=== PATIENT | female | born 1960 | race Caucasian/White ===

== ENCOUNTER 2016-07-27 05:20 | Inpatient (IN) | payer MEDICAID ==
[~2016-07-27] VITALS: Ht 154.9 cm; Wt 58.2 kg
[2016-07-27] VITALS (13 sets, daily range): BP systolic 133–165; BP diastolic 69–83; PULSE 71–93; RESP 16–20; TEMP 98.9–101.3; O2SAT 98–100
[~2016-07-27 05:20] MED LIST: ACET-703 PO; FERR325T PO; IBUP400T20 PO; LACT10SO PO; OMEP10CA PO; PROP20TA3 PO; PROT40TA PO; SPIR25 PO; TRAZ50TA12 PO; VASO10TA8 PO; XIFA550T4 PO
[2016-07-27] MEDS: SODIUM CHLORID 0.9% 500 ML IV SCH ×2 (05:45→20:43)
[2016-07-27] MEDS ORDERED: INSULIN HUMAN REGULAR 1,000 UNITS/10 ML VIAL SQ PRN (05:45)
[2016-07-27] MEDS ORDERED: METOPROLOL TARTRATE 25 MG TAB PO PRN (05:45)
[2016-07-27] MEDS: LACTATED RINGER'S 1000 ML IV SCH ×2 (06:15→20:43)
[2016-07-27] MEDS ORDERED: FURO1TAB62 PO (06:26)
[2016-07-27 06:46] LABS: AUTOMATED NEUTROPHIL # 2.5 TH/MM3 (1.8-7.7); BASOPHIL # 0.1 TH/MM3 (0-0.2); BASOPHIL % 1.3 % (0.0-2.0); EOSINOPHIL # 0.2 TH/MM3 (0-0.4); EOSINOPHIL % 4.5 % (0.0-4.0); LYMPH % 28.8 % (9.0-44.0); LYMPHOCYTE # 1.3 TH/MM3 (1.0-4.8); MEAN CELL VOLUME 93.7 FL (80.0-100.0); MEAN CORPUSCULAR HEMOGLOBIN 32.8 PG (27.0-34.0); MONO % 12.9 % (0.0-8.0); NEUT % 52.5 % (16.0-70.0); PLATELET COUNT 96 TH/MM3 (150-450); RED BLOOD COUNT 1.98 MIL/MM3 (4.00-5.30); RED CELL DISTRIBUTION WIDTH 13.1 % (11.6-17.2); WHITE BLOOD COUNT 4.7 TH/MM3 (4.0-11.0)
[2016-07-27] MEDS ORDERED: GENTAMICIN SULFATE 80 MG/2 ML VIAL ONE (06:50)
[2016-07-27 06:51] LABS: HEMO FLAGS AUTO DIFF
[2016-07-27 06:52] LABS: HEMATOCRIT 18.5 % (35.0-46.0)
[2016-07-27 06:56] LABS: ANION GAP 10 MEQ/L (5-15); AST (GOT) 26 U/L (15-37); BICARBONATE 19.6 MEQ/L (21.0-32.0); BLOOD UREA NITROGEN 19 MG/DL (7-18); CHLORIDE 113 MEQ/L (98-107); GLOMERULAR FILTRATION RATE 34 ML/MIN (>89); POTASSIUM 3.1 MEQ/L (3.5-5.1); SODIUM (NA) 143 MEQ/L (136-145)
[2016-07-27 06:57] LABS: INTERNATIONAL NORMALIZED RATIO 1.2 RATIO; PROTHROMBIN TIME - PATIENT 13.3 SEC (9.8-11.6)
[2016-07-27 06:59] LABS: ALKALINE PHOSPHATASE 118 U/L (45-117); ALT (GPT) 24 U/L (10-53); TOTAL BILIRUBIN ADULT 0.7 MG/DL (0.2-1.0)
[2016-07-27] MEDS ORDERED: SODIUM CHLOR 0.9% 250 ML INJ 250 ML IV ONE (07:15)
[2016-07-27 07:16] LABS: BANDS 3 % (0-6); BASOPHILS 1 % (0-2); EOSINOPHILS 2 % (0-4); NEUTROPHIL # MANUAL DIFF 2.8 TH/MM3 (1.8-7.7); PLATELET ESTIMATE SMEAR LOW (NORMAL); POLYS (SEG NEUTROPHILS) 57 % (16-70); WBC DIFF SAMPLE 100
[2016-07-27 07:17] LABS: PLATELET MORPHOLOGY NORMAL (NORMAL); SCAN/DIFF FINAL DIFF MANUAL
[2016-07-27] MEDS ORDERED: ACETAMINOPHEN/HYDROcodone 325 MG/5 MG TAB ONE (12:37)
[2016-07-27] MEDS ORDERED: ACETAMINOPHEN/HYDROcodone 325 MG/5 MG TAB PO PRN ×2 (13:00)
[2016-07-27] MEDS ORDERED: IBUPROFEN 600 MG TAB PO PRN (19:15)
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
[2016-07-27] MEDS ORDERED: POTASSIUM CL 40 MEQ/30 ML LIQ UDC PO ONE (20:00)
[2016-07-27] MEDS: FERROUS SULFATE 325 MG (65 MG ELEMENTAL IRON) TAB PO SCH (20:01)
[2016-07-27] MEDS: PANTOPRAZOLE SODIUM 40 MG VIAL IV PUSH SCH (20:01)
[2016-07-27] MEDS: RIFAXIMIN 550 MG TAB PO SCH (20:01)
[2016-07-27] MEDS: traZODone HCL 50 MG TAB PO SCH (20:01)
[2016-07-27] MEDS: LACTULOSE SYRUP 20 GM/30 ML CUP PO SCH (20:07)
[2016-07-27] MEDS: SODIUM CHLOR 0.9% 1000 ML INJ 1,000 ML IV SCH (20:07)
[2016-07-27 20:58] LABS: HEMATOCRIT 24.1 % (35.0-46.0); MEAN CELL VOLUME 89.2 FL (80.0-100.0); MEAN CORPUSCULAR HEMOGLOBIN 30.9 PG (27.0-34.0); MEAN CORPUSCULAR HGB CONC 34.6 % (32.0-36.0); PLATELET COUNT 119 TH/MM3 (150-450); RED CELL DISTRIBUTION WIDTH 14.3 % (11.6-17.2); RETIC % 3.4 % (0.4-3.0); REVIEW FLAG FINAL; WHITE BLOOD COUNT 5.6 TH/MM3 (4.0-11.0)
[2016-07-27] MEDS ORDERED: ENALAPRIL MALEATE 10 MG TAB PO SCH (21:00)
[2016-07-27 21:50] LABS: FERRITIN 13 NG/ML (8-252); LDH SERUM 202 U/L (84-246); TRANSFERRIN IRON PROFILE 275 MG/DL (200-360)
[2016-07-28] VITALS (7 sets, daily range): BP systolic 136–177; BP diastolic 69–89; PULSE 66–80; RESP 16–19; TEMP 96.9–99.3; O2SAT 95–100
[2016-07-28 01:14] LABS: C. DIFF EPI 027 PRESUMPTIVE NEGATIVE (NEGATIVE)
[2016-07-28 01:59] LABS: C. DIFF TOXIN PCR POSITIVE (NEGATIVE)
[2016-07-28] MEDS: metroNIDAZOLE 500 MG INJ 100 ML IV SCH ×3 (03:46→20:24)
[2016-07-28] MEDS: SODIUM CHLOR 0.9% 1000 ML INJ 1,000 ML IV SCH ×2 (04:50→18:04)
[2016-07-28 05:46] LABS: AUTOMATED NEUTROPHIL # 1.3 TH/MM3 (1.8-7.7); BASOPHIL % 1.2 % (0.0-2.0); EOSINOPHIL # 0.1 TH/MM3 (0-0.4); EOSINOPHIL % 4.4 % (0.0-4.0); HEMATOCRIT 21.9 % (35.0-46.0); LYMPH % 31.2 % (9.0-44.0); LYMPHOCYTE # 0.9 TH/MM3 (1.0-4.8); MEAN CELL VOLUME 89.2 FL (80.0-100.0); MEAN CORPUSCULAR HEMOGLOBIN 31.3 PG (27.0-34.0); MEAN CORPUSCULAR HGB CONC 35.1 % (32.0-36.0); MONO % 17.5 % (0.0-8.0); NEUT % 45.7 % (16.0-70.0); PLATELET COUNT 74 TH/MM3 (150-450); RED BLOOD COUNT 2.46 MIL/MM3 (4.00-5.30); RED CELL DISTRIBUTION WIDTH 14.5 % (11.6-17.2); WHITE BLOOD COUNT 2.8 TH/MM3 (4.0-11.0)
[2016-07-28 06:03] LABS: ALKALINE PHOSPHATASE 94 U/L (45-117); ALT (GPT) 18 U/L (10-53); ANION GAP 9 MEQ/L (5-15); AST (GOT) 19 U/L (15-37); BICARBONATE 19.5 MEQ/L (21.0-32.0); BLOOD UREA NITROGEN 19 MG/DL (7-18); CHLORIDE 116 MEQ/L (98-107); GLOMERULAR FILTRATION RATE 41 ML/MIN (>89); SODIUM (NA) 144 MEQ/L (136-145)
[2016-07-28 06:11] LABS: HEMO FLAGS AUTO DIFF
--- NOTE | 2016-07-28 06:52 | PD.ORT.PN ---
Subjective Subjective Remarks s/p nonunion right distal tibia fx patietn doing well. no complaints. resting comfortably Objective Vitals Vital Signs Date Time Temp Pulse Resp B/P Pulse Ox O2 Delivery O2 Flow Rate FiO2 07/28/16 04:00 96.9 80 19 177/89 98 07/28/16 00:00 99.2 71 19 139/75 98 07/27/16 20:00 101.3 88 19 165/77 98 07/27/16 18:42 101.1 93 20 160/77 100 07/27/16 18:20 101.0 93 18 158/72 100 07/27/16 16:30 99.8 86 16 156/72 98 07/27/16 15:15 100.5 84 18 135/69 100 07/27/16 13:25 100.8 79 18 141/83 100 07/27/16 13:08 100.8 74 16 136/73 99 07/27/16 13:00 100.8 74 16 136/73 99 07/27/16 12:00 101.1 78 18 152/73 100 07/27/16 10:23 100.3 73 18 142/79 100 07/27/16 10:09 99.2 71 18 133/74 99 07/27/16 09:45 100.5 76 142/74 100 I/O 07/27/16 07/27/16 07/27/16 07/28/16 07/28/16 07/28/16 06:59 14:59 22:59 06:59 14:59 22:59 Intake Total 590 ml 672 ml Output Total 200 ml Balance 390 ml 672 ml Intake Oral 240 ml IV Total 100 ml 672 ml Platelets 250 ml Output Urine Total 200 ml # Voids 2 1 2 # Bowel Movements 3 2 Result Diagram: 07/28/16 0455 07/28/16 0455 Objective Remarks RLE: good PROM with minimal pain. NVI distally wtih good cap refill Assessment & Plan Assessment and Plan 1) Right Distal Tibia nonunion -patient still not stable enough for surgery. labs not healthy enough -will allow medical to continue to work up patient and optimize for surgery -hopeful surgery mon/tu -orthotech to splint today -NPO after MN tuesday -NWRafa Menjivar Jul 28, 2016 06:52
[2016-07-28 08:07] LABS: BANDS 14 % (0-6); EOSINOPHILS 4 % (0-4); NEUTROPHIL # MANUAL DIFF 1.9 TH/MM3 (1.8-7.7); POLYS (SEG NEUTROPHILS) 53 % (16-70); WBC DIFF SAMPLE 100
[2016-07-28 08:08] LABS: PLATELET ESTIMATE SMEAR LOW (NORMAL); PLATELET MORPHOLOGY NORMAL (NORMAL); POLYCHROMASIA 2.2 % (0.0-1.9); SCAN/DIFF FINAL DIFF MANUAL
[2016-07-28] MEDS: SPIRONOLACTONE 25 MG TAB PO SCH (08:41)
[2016-07-28] MEDS: RIFAXIMIN 550 MG TAB PO SCH ×2 (08:41→20:23)
[2016-07-28] MEDS: PANTOPRAZOLE SODIUM 40 MG VIAL IV PUSH SCH ×2 (08:41→20:23)
[2016-07-28] MEDS: FERROUS SULFATE 325 MG (65 MG ELEMENTAL IRON) TAB PO SCH ×2 (08:41→20:24)
[2016-07-28] MEDS: PROPRANOLOL HCL 20 MG TAB PO SCH ×3 (08:41→18:04)
[2016-07-28] MEDS: LACTULOSE SYRUP 20 GM/30 ML CUP PO SCH ×4 (08:43→20:31)
[2016-07-28] MEDS ORDERED: FUROSEMIDE 20 MG TAB PO SCH (09:00)
--- NOTE | 2016-07-28 10:46 | HHI.PR ---
Subjective Remarks Follow-up for diarrhea, anemia and thrombocytopenia MAXIMUM TEMPERATURE 101.3, no abdominal pain, still having diarrhea but improved , less frequent. Less soft. No melena or hematochezia, no obvious bleeding. Denies any shortness of breath or urinary symptoms. Objective Vitals Vital Signs Date Time Temp Pulse Resp B/P Pulse Ox O2 Delivery O2 Flow Rate FiO2 07/28/16 08:00 97.7 66 16 136/74 98 07/28/16 04:00 96.9 80 19 177/89 98 07/28/16 00:00 99.2 71 19 139/75 98 07/27/16 20:00 101.3 88 19 165/77 98 07/27/16 18:42 101.1 93 20 160/77 100 07/27/16 18:20 101.0 93 18 158/72 100 07/27/16 16:30 99.8 86 16 156/72 98 07/27/16 15:15 100.5 84 18 135/69 100 07/27/16 13:25 100.8 79 18 141/83 100 07/27/16 13:08 100.8 74 16 136/73 99 07/27/16 13:00 100.8 74 16 136/73 99 07/27/16 12:00 101.1 78 18 152/73 100 I/O 07/27/16 07/27/16 07/27/16 07/28/16 07/28/16 07/28/16 07:00 15:00 23:00 07:00 15:00 23:00 Intake Total 590 ml 672 ml Output Total 200 ml Balance 390 ml 672 ml Intake Oral 240 ml IV Total 100 ml 672 ml Platelets 250 ml Output Urine Total 200 ml # Voids 2 1 2 # Bowel Movements 3 2 Result Diagram: 07/28/16 0455 07/28/16 0455 Objective Remarks Not in distress, well-nourished, looks stated age PERRL, moderately pale conjunctiva without injection, anicteric Nose without bleeding, airway patent Supple neck, no masses or thyromegaly, trachea midline Normal rate and regular rhythm, no murmurs gallops or rubs appreciated. Clear to auscultation and symmetric bilaterally, normal respiratory effort. Normal bowel sounds, soft, non-tender, nondistended, no guarding. Extremities without clubbing, cyanosis, 2+ edema. No rash of generalized distribution. Skin is warm and dry. AAO x3, no cranial nerve deficits, moves all 4 extremities, no focal neurologic deficits, no asterixis Normal mood, appropriate affect A/P Assessment and Plan Symptomatic anemia in a 55-year-old male Symptomatic anemia-status post transfusion with packed red blood cells, hemoglobin down again to 7.7. Likely secondary to consumptive coagulopathy from splenomegaly secondary to liver cirrhosis. Workup done, unremarkable so far. Continue to check hemoglobin every 12 hours, check ultrasound of the liver and spleen. Consult hematology. CT scan of the abdomen in October did not show any splenomegaly. Normocytic anemia may also be secondary to infection. 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 Patient has history of GI bleeding, status post EGD in March, showed gastritis and esophageal and gastric varices. Fecal occult blood negative. Thrombocytopenia-no obvious bleeding, getting platelet transfusion right now, likely secondary to consumptive coagulopathy as well, workup negative so far. Consult hematology. Transfuse as needed. Sepsis secondary to C. difficile diarrhea-start Flagyl, monitor. Sepsis based on fever, leukopenia with renal failure. Check blood culture, recheck CBC tomorrow. No recent antibiotic use. Acute renal failure- improved, secondary to overdiuresis and diarrhea, stop diuretics for now, hold lisinopril, continue IVF, recheck BMP tomorrow. Tibia-fibula fracture, left-orthopedics following, nonweightbearing for now. Surgery Tuesday or Tuesday Liver cirrhosis secondary to hepatitis C with history of hepatic encephalopathy- continue rifaximin and lactulose. Hypokalemia-replaced, recheck BMP tomorrow. Check magnesium as well. DVT prophylaxis: SCDs, pharmacological prophylaxis contraindicated Berkley Allen MD Jul 28, 2016 10:46
--- NOTE | 2016-07-28 11:53 | PD.CONS ---
HPI History of Present Illness This is a 55 year old female patient with a hx of liver cirrhosis, esophageal varices, and hepatitis C. She was sent to the hospital to be admitted and have surgical repair of a right distal tibia nonunion. She was found to have significant anemia on her preop labs with an H/H of 6.5/18.5. She was transfused 2 units PRBC and her HH is currently 7.7/21.9. The patient reports that she has had GI bleeding in the past and has not had any signs of any bleeding. She states that she even knows "the smell of occult blood" and has not smelled this. She denies any nausea, vomiting, abdominal pain, melena, or hematochezia. She has occasional heartburn and does usually have about 2 loose stools per day because of taking lactulose. However, for the past two days, she has been having more diarrhea and was found to have CDiff (027 negative) and subsequently started on metronidazole. This is her first episode. She denies any recent abx use. She was diagnosed with liver cirrhosis a few years ago and was told that this was related to etoh abuse and HCV and quit drinking 10 months ago. She is treatment naive for her HCV although she is followed by our service as outpatient and getting ready to start tx with Onur. She is taking lactulose 40cc po QID, Protonix 40mg po daily, Propranolol 20mg po BID, Spironolactone 25mg po daily, Xifaxan 550mg po BID. She was evaluated for melena and anemia with EGD/(04/06/16)-----> LA class a esophagitis noted, alcoholic gastritis in the gastric antrum, portal hypertensive gastropathy was found in the gastric fundus, large gastric varices in the gastric fundus, retroflex views revealed no abnormalities. Pathology revealed moderate chronic focally active gastritis, negative for Helicobacter pylori. It is recommended that she be repeat EGD with sclerotherapy in 6 months. Prior to that she had a colonoscopy () and this revealed suboptimal preparation of the colon but no gross lesions was noted. (Annia RocheP) PFSH Past Medical History Liver cirrhosis Gastric varices Gastritis Portal hypertensive gastropathy Hepatic encephalopathy Chronic back pain Hypertension Sciatica Right distal tibia fracture Past Surgical History ORIF right distal tibia-fibula Paracentesis EGD Colonoscopy (Annia Roche) Coded Allergies: No Known Allergies (Unverified , 07/27/16) Medications Allergies Coded Allergies Type Severity Reaction Last Updated Verified No Known Allergies 07/27/16 No Active Scripts Medications Dose Route/Sig Days Date Category Lasix (Furosemide) 20 Mg Tab 20 Mg PO DAILY 07/27/16 Reported Ibuprofen 400 Mg Tab 400 Mg PO Q6H PRN 07/26/16 Reported Tylenol Extra Strength (Acetaminophen) 500 Mg Tab 500 Mg PO Q4-6H PRN 07/26/16 Reported Xifaxan (Rifaximin) 550 Mg Tab 550 Mg PO BID 07/26/16 Reported Vasotec (Enalapril Maleate) 10 Mg Tab 10 Mg PO BID 07/26/16 Reported Protonix (Pantoprazole Sodium) 40 Mg Tab 40 Mg PO BID 07/26/16 Reported Propranolol (Propranolol HCl) 20 Mg Tab 20 Mg PO TID 07/26/16 Reported Lactulose Liq (Lactulose) 10 Gm/15 Ml Soln 40 Ml PO QID 07/26/16 Reported Ferrous Sulfate 325 Mg Tab 325 Mg PO BID 07/26/16 Reported Aldactone (Spironolactone) 25 Mg Tab 25 Mg PO DAILY 07/26/16 Reported Trazodone (Trazodone HCl) 50 Mg Tab 50 Mg PO HS 07/26/16 Reported Omeprazole 10 Mg Cap 10 Mg PO DAILY 07/26/16 Reported Family History Mother has cardiac problems, breast cancer Father with htn Social History Previously drinks about 4-5 shots of rum every day, stopped 9-10 months ago Quit smoking 9-10 months (Annia Roche) Review of Systems Constitutional: COMPLAINS OF: Fatigue Respiratory: COMPLAINS OF: Shortness of breath, DENIES: Cough Gastrointestinal: COMPLAINS OF: Heartburn, DENIES: Abdominal pain, Black stools, Bloody stools, Constipation, Diarrhea, Nausea, Vomiting Musculoskeletal: COMPLAINS OF: Joint pain Integumentary: DENIES: Abnormal pigmentation Neurologic: DENIES: Headache Psychiatric: DENIES: Confusion (Annia Roche) GI Exam Vitals I&O Vital Signs Date Time Temp Pulse Resp B/P Pulse Ox O2 Delivery O2 Flow Rate FiO2 07/28/16 09:52 20 07/28/16 08:00 97.7 66 16 136/74 98 07/28/16 04:00 96.9 80 19 177/89 98 07/28/16 00:00 99.2 71 19 139/75 98 07/27/16 20:00 101.3 88 19 165/77 98 07/27/16 18:42 101.1 93 20 160/77 100 07/27/16 18:20 101.0 93 18 158/72 100 07/27/16 16:30 99.8 86 16 156/72 98 07/27/16 15:15 100.5 84 18 135/69 100 07/27/16 13:25 100.8 79 18 141/83 100 07/27/16 13:08 100.8 74 16 136/73 99 07/27/16 13:00 100.8 74 16 136/73 99 07/27/16 12:00 101.1 78 18 152/73 100 I/O 07/27/16 07/27/16 07/27/16 07/28/16 07/28/16 07/28/16 06:59 14:59 22:59 06:59 14:59 22:59 Intake Total 590 ml 672 ml Output Total 200 ml Balance 390 ml 672 ml Intake Oral 240 ml IV Total 100 ml 672 ml Platelets 250 ml Output Urine Total 200 ml # Voids 2 1 2 # Bowel Movements 3 2 Laboratory Test 07/27/16 07/28/16 07/28/16 20:27 00:01 04:55 White Blood Count 5.6 TH/MM3 2.8 TH/MM3 Red Blood Count 2.70 MIL/MM3 2.46 MIL/MM3 Hemoglobin 8.3 GM/DL 7.7 GM/DL Hematocrit 24.1 % 21.9 % Mean Corpuscular Volume 89.2 FL 89.2 FL Mean Corpuscular Hemoglobin 30.9 PG 31.3 PG Mean Corpuscular Hemoglobin 34.6 % 35.1 % Concent Red Cell Distribution Width 14.3 % 14.5 % Platelet Count 119 TH/MM3 74 TH/MM3 Mean Platelet Volume 8.7 FL 8.5 FL Reticulocyte Count 3.4 % Absolute Reticulocyte Count 92.9 MIL/L Haptoglobin 42 MG/DL Iron Level 91 MCG/DL Total Iron Binding Capacity 385 MCG/DL Percent Iron Saturation 23.6 % Ferritin 13 NG/ML Lactate Dehydrogenase 202 U/L Vitamin B12 Level 1449 PG/ML Folate 16.4 NG/ML Direct Antiglobulin Test NEGATIVE (Nathalie) Stool C. difficile Toxin (PCR) POSITIVE Stl C. difficile Toxin PRESUMPTIVE Epiderm 027 NEGATIVE Neutrophils (%) (Auto) 45.7 % Lymphocytes (%) (Auto) 31.2 % Monocytes (%) (Auto) 17.5 % Eosinophils (%) (Auto) 4.4 % Basophils (%) (Auto) 1.2 % Neutrophils # (Auto) 1.3 TH/MM3 Lymphocytes # (Auto) 0.9 TH/MM3 Monocytes # (Auto) 0.5 TH/MM3 Eosinophils # (Auto) 0.1 TH/MM3 Basophils # (Auto) 0.0 TH/MM3 CBC Comment AUTO DIFF Differential Total Cells 100 Counted Neutrophils % (Manual) 53 % Band Neutrophils % 14 % Lymphocytes % 18 % Monocytes % 11 % Eosinophils % 4 % Neutrophils # (Manual) 1.9 TH/MM3 Differential Comment FINAL DIFF MANUAL Platelet Estimate LOW Platelet Morphology Comment NORMAL Polychromasia 2.2 % Sodium Level 144 MEQ/L Potassium Level 3.0 MEQ/L Chloride Level 116 MEQ/L Carbon Dioxide Level 19.5 MEQ/L Anion Gap 9 MEQ/L Blood Urea Nitrogen 19 MG/DL Creatinine 1.36 MG/DL Estimat Glomerular Filtration 41 ML/MIN Rate Random Glucose 81 MG/DL Calcium Level 7.6 MG/DL Total Bilirubin 1.0 MG/DL Aspartate Amino Transf 19 U/L (AST/SGOT) Alanine Aminotransferase 18 U/L (ALT/SGPT) Alkaline Phosphatase 94 U/L Total Protein 5.0 GM/DL Albumin 2.0 GM/DL Date/Time Procedure Status Source Growth 07/28/16 00:01 Stool Occult Blood (BERNICE) - Final Complete Stool Stool HEMOCCULT NEGATIVE Physical Examination HEENT: Normocephalic; atraumatic; no jaundice. Throat is clear. NECK: Neck is supple, no JVD, no lymphadenopathy. CHEST: CTA CARDIAC: RRR. ABDOMEN: Soft, nondistended, nontender; hepatosplenomegaly; bowel sounds are present in all four quadrants. EXTREMITIES: RLE splint/drsg SKIN: Normal; no rash; no jaundice. 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 (Annia Roche) Assessment and Plan Plan ASSESSMENT: - Anemia. Pt with hx of esophagitis, portal gastropathy, gastric varices, but is not having any signs of active bleeding. She has occasional breakthrough heartburn and has been having more diarrhea for a few days, but no obvious blood loss. She was noted to have H/H of 6.5/18.5 on arrival. EGD/(04/06/16)-----> LA class a esophagitis noted, alcoholic gastritis in the gastric antrum, portal hypertensive gastropathy was found in the gastric fundus, large gastric varices in the gastric fundus, retroflex views revealed no abnormalities. Pathology revealed moderate chronic focally active gastritis, negative for Helicobacter pylori. It is recommended that she be repeat EGD with sclerotherapy in 6 months. Prior to that she had a colonoscopy () and this revealed suboptimal preparation of the colon but no gross lesions was noted. S/P 2 units PRBC and her HH is currently 7.7/21.9. Of note, she was also diagnosed with CDiff. Will start octreotide in addition to her protonix and closely monitor. Will plan for egd if any signs of active bleeding or significant drop in Hgb. - CDiff Diarrhea. 1st episode. Flagyl. - Nonunion of distal tibia (right). Scheduled for surgery, but then found to have anemia/cdiff. Ortho following and is planning on surgery next week. - Liver cirrhosis secondary to ETOH/HCV. Quit drinking 10 months ago. Tx naive for HCV, but following as outpatient and planning on starting Harvoni soon (in process). - Portal gastropathy, gastric varices. No active bleeding. Cont. Propranolol. PPI. Add Octreotide - Hepatic encephalopathy. Xifaxan, Lactulose. - Pancytopenia secondary to cirrhosis. WBC 2.8, H/H 7.7/21.9, Plt 74. - RI, Creat 1.36. PLAN: - EGD with possible band ligation - Obtain consents - NPO - Add Octreotide gtt - Cont. PPI - Cont. Propranolol - Cont. Flagyl - Cont. Lactulose- hold for diarrhea - Cont. Xifaxan - D/C Motrin - Monitor stool output - CBC, CMP in am - Supportive care - Further recommendations to follow based on results of above - Pt seen and examined by Dr. Larios and myself and this note is written on his behalf (Annia Roche) Physician Comments Seen and examined with Ms. Melchor PINEDA, +ve for c. diff. On antibiotics now. EGD today for fu on varices. Liquid diet. Transfuse as needed. Octreotide and protonix. Will follow, thank you (Lew Larios MD) Annia Roche Jul 28, 2016 11:53 Lew Larios MD Jul 28, 2016 14:51
[2016-07-28] MEDS ORDERED: OCTREOTIDE INJ 50 MCG/ML AMP IVP PRN (12:15)
[2016-07-28] MEDS ORDERED: SODIUM CHLORIDE 0.9% FLUSH 5 ML FLUSH FLUSH PRN (12:15)
[2016-07-28] MEDS: SODIUM CHLORIDE 0.9% FLUSH 5 ML FLUSH FLUSH SCH ×2 (12:30→19:50)
[2016-07-28] MEDS ORDERED: PROPOFOL 200 MG/20 ML AMP IV ONE (12:35)
--- NOTE | 2016-07-28 16:51 | RADRPT ---
EXAM DATE/TIME: 07/28/2016 15:26 [facility] COMPARISON: No previous studies available for comparison. EXTERNAL COMPARISON : [facility], US LIVER, July 15, 2016 INDICATIONS : Splenomegaly. MEDICAL HISTORY : Hypertension. Hepatitis C. Right inguinal hernia. Cirrhosis. SURGICAL HISTORY : section. Paracentesis. Orthopedic surgery, right leg. ENCOUNTER: Subsequent ACUITY: 1 day PAIN SCORE: 0/10 LOCATION: Left upper quadrant MEASUREMENTS: SPLEEN: 12.7 cm length FINDINGS: The spleen measures 12.7 cm which is not enlarged. There are minimal dilated vessels in the hilum of the spleen that could be varicosities. Trace free fluid is evident. CT scan with IV contrast is a much more reliable way to evaluate for splenomegaly and varicosities. CONCLUSION: Normal size spleen. Ramos Lo MD FACR on July 28, 2016 at 16:20 Board Certified Radiologist. This report was verified electronically.
[2016-07-28] MEDS: traZODone HCL 50 MG TAB PO SCH (20:23)
[2016-07-29] VITALS (10 sets, daily range): BP systolic 119–145; BP diastolic 67–84; PULSE 52–75; RESP 16–19; TEMP 97–98.7; O2SAT 97–100
[2016-07-29] MEDS: LACTATED RINGER'S 1000 ML IV SCH (03:29)
[2016-07-29] MEDS: SODIUM CHLOR 0.9% 1000 ML INJ 1,000 ML IV SCH ×2 (03:50→15:48)
[2016-07-29] MEDS: metroNIDAZOLE 500 MG INJ 100 ML IV SCH ×3 (03:50→20:24)
[2016-07-29 04:57] LABS: AUTOMATED NEUTROPHIL # 1.2 TH/MM3 (1.8-7.7); BASOPHIL # 0.1 TH/MM3 (0-0.2); BASOPHIL % 1.4 % (0.0-2.0); EOSINOPHIL # 0.3 TH/MM3 (0-0.4); EOSINOPHIL % 8.2 % (0.0-4.0); HEMATOCRIT 23.9 % (35.0-46.0); LYMPH % 36.8 % (9.0-44.0); LYMPHOCYTE # 1.4 TH/MM3 (1.0-4.8); MEAN CELL VOLUME 90.6 FL (80.0-100.0); MEAN CORPUSCULAR HEMOGLOBIN 30.6 PG (27.0-34.0); MEAN CORPUSCULAR HGB CONC 33.8 % (32.0-36.0); MONO % 21.7 % (0.0-8.0); NEUT % 31.9 % (16.0-70.0); PLATELET COUNT 86 TH/MM3 (150-450); RED BLOOD COUNT 2.64 MIL/MM3 (4.00-5.30); RED CELL DISTRIBUTION WIDTH 14.8 % (11.6-17.2); WHITE BLOOD COUNT 3.8 TH/MM3 (4.0-11.0)
[2016-07-29 05:03] LABS: HEMO FLAGS AUTO DIFF
[2016-07-29 05:17] LABS: BICARBONATE 19.6 MEQ/L (21.0-32.0); MAGNESIUM 1.6 MG/DL (1.5-2.5); POTASSIUM 3.1 MEQ/L (3.5-5.1)
--- NOTE | 2016-07-29 07:01 | PD.ORT.PN ---
Subjective Subjective Remarks s/p nonunion right distal tibia fx patietn doing well. no complaints. resting comfortably Objective Vitals Vital Signs Date Time Temp Pulse Resp B/P Pulse Ox O2 Delivery O2 Flow Rate FiO2 07/29/16 00:00 98.7 71 18 129/70 100 07/28/16 20:00 99.3 69 18 142/69 100 07/28/16 16:00 98.1 73 16 163/84 95 07/28/16 15:56 20 07/28/16 12:58 63 16 115/67 96 07/28/16 12:53 66 16 115/61 96 07/28/16 12:48 97.9 68 16 108/61 96 07/28/16 12:34 97.8 68 18 162/75 97 07/28/16 12:17 97.7 66 16 136/74 98 07/28/16 08:00 97.7 66 16 136/74 98 I/O 07/28/16 07/28/16 07/28/16 07/29/16 07/29/16 07/29/16 07:00 15:00 23:00 07:00 15:00 23:00 Intake Total 672 ml 600 ml 1644 ml 1040 ml Output Total 350 ml Balance 672 ml 250 ml 1644 ml 1040 ml Intake Oral 0 ml 240 ml 240 ml IV Total 672 ml 600 ml 1404 ml 800 ml Output Urine Total 350 ml # Voids 2 2 1 1 # Bowel Movements 2 1 Result Diagram: 07/29/16 0413 07/29/16 0413 Objective Remarks RLE: good PROM with minimal pain. NVI distally wtih good cap refill. + short leg splint in good repair Assessment & Plan Assessment and Plan 1) Right Distal Tibia nonunion -patient still not stable enough for surgery. labs not healthy enough -will allow medical to continue to work up patient and optimize for surgery -hopeful surgery mon/ -orthotech to splint today -NPO after MN tuesday -Rafa Gongora Jul 29, 2016 07:01
[2016-07-29 08:22] LABS: BANDS 3 % (0-6); BASOPHILS 1 % (0-2); CORRECTED NUCLEATED RBC 1 /100 WBC (0-0); EOSINOPHILS 7 % (0-4); NEUTROPHIL # MANUAL DIFF 1.6 TH/MM3 (1.8-7.7); POLYS (SEG NEUTROPHILS) 40 % (16-70); WBC DIFF SAMPLE 100
[2016-07-29 08:23] LABS: PLATELET ESTIMATE SMEAR LOW (NORMAL); PLATELET MORPHOLOGY NORMAL (NORMAL); SCAN/DIFF FINAL DIFF MANUAL
[2016-07-29] MEDS: SODIUM CHLORIDE 0.9% FLUSH 5 ML FLUSH FLUSH SCH ×2 (08:32→20:17)
[2016-07-29] MEDS: RIFAXIMIN 550 MG TAB PO SCH ×2 (08:45→20:24)
[2016-07-29] MEDS: PROPRANOLOL HCL 20 MG TAB PO SCH ×3 (08:45→17:51)
[2016-07-29] MEDS: FERROUS SULFATE 325 MG (65 MG ELEMENTAL IRON) TAB PO SCH ×2 (08:45→20:24)
[2016-07-29] MEDS: LACTULOSE SYRUP 20 GM/30 ML CUP PO SCH (08:45)
[2016-07-29] MEDS: PANTOPRAZOLE SODIUM 40 MG VIAL IV PUSH SCH ×2 (08:45→20:24)
[2016-07-29] MEDS ORDERED: ACETAMINOPHEN 325 MG TAB PO PRN (09:00)
[2016-07-29] MEDS ORDERED: diphenhydrAMINE HCL 25 MG CAP PO PRN (09:00)
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
--- NOTE | 2016-07-29 10:22 | HHI.PR ---
Subjective Remarks Follow-up for anemia, thrombocytopenia and C. difficile Still having diarrhea, loose, frequent, mild abdominal pain and nausea but no vomiting. No obvious bleeding. Objective Vitals Vital Signs Date Time Temp Pulse Resp B/P Pulse Ox O2 Delivery O2 Flow Rate FiO2 07/29/16 07:45 97.3 65 18 135/67 97 07/29/16 00:00 98.7 71 18 129/70 100 07/28/16 20:00 99.3 69 18 142/69 100 07/28/16 16:00 98.1 73 16 163/84 95 07/28/16 15:56 20 07/28/16 12:58 63 16 115/67 96 07/28/16 12:53 66 16 115/61 96 07/28/16 12:48 97.9 68 16 108/61 96 07/28/16 12:34 97.8 68 18 162/75 97 07/28/16 12:17 97.7 66 16 136/74 98 I/O 07/28/16 07/28/16 07/28/16 07/29/16 07/29/16 07/29/16 06:59 14:59 22:59 06:59 14:59 22:59 Intake Total 672 ml 600 ml 1644 ml 1040 ml Output Total 350 ml Balance 672 ml 250 ml 1644 ml 1040 ml Intake Oral 0 ml 240 ml 240 ml IV Total 672 ml 600 ml 1404 ml 800 ml Output Urine Total 350 ml # Voids 2 2 1 1 # Bowel Movements 2 1 Result Diagram: 07/29/16 0413 07/29/16 0413 Imaging Last Impressions Spleen Ultrasound 07/28/16 0000 Signed Impressions: Service Date/Time: Thursday, July 28, 2016 15:26 - CONCLUSION: Normal size spleen. Ramos Lo MD FACR Objective Remarks Not in distress, well-nourished, looks stated age PERRL, moderately pale conjunctiva without injection, anicteric Nose without bleeding, airway patent Supple neck, no masses or thyromegaly, trachea midline Normal rate and regular rhythm, no murmurs gallops or rubs appreciated. Clear to auscultation and symmetric bilaterally, normal respiratory effort. Normal bowel sounds, soft, non-tender, nondistended, no guarding. Extremities without clubbing, cyanosis, 2+ edema. Right lower extremity dressings in place. No rash of generalized distribution. Skin is warm and dry. AAO x3, no cranial nerve deficits, moves all 4 extremities, no focal neurologic deficits, no asterixis Normal mood, appropriate affect A/P Problem List: (1) Hepatitis C ICD Code: B19.20 Status: Chronic (2) Cirrhosis of liver ICD Code: K74.60 Status: Chronic (3) Acute renal failure ICD Code: N17.9 Status: Acute (4) Fracture of distal end of tibia with fibula ICD Code: S82.309A Status: Chronic (5) Anemia ICD Code: D64.9 Status: Acute (6) Hypokalemia ICD Code: E87.6 Status: Acute (7) Thrombocytopenia ICD Code: D69.6 Status: Acute Assessment and Plan Symptomatic anemia in a 55-year-old male Symptomatic anemia-status post transfusion with packed red blood cells, hemoglobin 8.1, per hematology, transfuse 1 more unit. Ultrasound of the liver showed normal spleen. 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 Check CBC daily, chest use as needed. CT scan of the abdomen in October did not show any splenomegaly. Normocytic anemia may also be secondary to infection. Continue Protonix IV, clear liquid diet. Patient has history of GI bleeding, status post EGD in March, showed gastritis and esophageal and gastric varices. Fecal occult blood negative. Possible GI bleed-gastroenterology following, octreotide added, for EGD per GI. Thrombocytopenia-no obvious bleeding, status post platelet transfusion, transfuse as needed prior to surgery. 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 Sepsis secondary to C. difficile diarrhea- continue Flagyl, monitor. Sepsis based on fever, leukopenia with renal failure. No leukocytosis Acute renal failure- improved, secondary to overdiuresis and diarrhea, stop diuretics for now, hold lisinopril, continue IVF, creatinine improving, almost back to normal, recheck BMP tomorrow Tibia-fibula fracture, right -orthopedics following, nonweightbearing for now. Surgery Tuesday or Tuesday Liver cirrhosis secondary to hepatitis C with history of hepatic encephalopathy- continue rifaximin and lactulose. Hypokalemia-replaced Hypomagnesemia-replace DVT prophylaxis: SCDs, pharmacological prophylaxis contraindicated Berkley Allen MD Jul 29, 2016 10:22
[2016-07-29] MEDS: POTASSIUM CHLOR 20 MEQ PREMIX 100 ML IV SCH ×2 (10:26→11:39)
--- NOTE | 2016-07-29 13:03 | HHI.GIFU ---
Subjective Remarks Resting in bed in no distress. No active bleeding. States her diarrhea is slowing down. States surgery is planned for Tuesday/Tuesday of next week. ( Annia Roche) Objective Vitals I&O Vital Signs Date Time Temp Pulse Resp B/P Pulse Ox O2 Delivery O2 Flow Rate FiO2 07/29/16 12:45 97.6 75 18 127/70 97 07/29/16 11:45 97.8 56 18 119/68 100 07/29/16 11:40 97.8 56 18 119/68 100 07/29/16 11:21 97.5 59 19 137/72 99 07/29/16 07:45 97.3 65 18 135/67 97 07/29/16 00:00 98.7 71 18 129/70 100 07/28/16 20:00 99.3 69 18 142/69 100 07/28/16 16:00 98.1 73 16 163/84 95 07/28/16 15:56 20 07/28/16 12:58 63 16 115/67 96 I/O 07/28/16 07/28/16 07/28/16 07/29/16 07/29/16 07/29/16 07:00 15:00 23:00 07:00 15:00 23:00 Intake Total 672 ml 600 ml 1644 ml 1040 ml Output Total 350 ml Balance 672 ml 250 ml 1644 ml 1040 ml Intake Oral 0 ml 240 ml 240 ml IV Total 672 ml 600 ml 1404 ml 800 ml Output Urine Total 350 ml # Voids 2 2 1 1 # Bowel Movements 2 1 Laboratory Laboratory Tests Test 07/29/16 04:13 White Blood Count 3.8 Red Blood Count 2.64 Hemoglobin 8.1 Hematocrit 23.9 Mean Corpuscular Volume 90.6 Mean Corpuscular Hemoglobin 30.6 Mean Corpuscular Hemoglobin 33.8 Concent Red Cell Distribution Width 14.8 Platelet Count 86 Mean Platelet Volume 8.7 Neutrophils (%) (Auto) 31.9 Lymphocytes (%) (Auto) 36.8 Monocytes (%) (Auto) 21.7 Eosinophils (%) (Auto) 8.2 Basophils (%) (Auto) 1.4 Neutrophils # (Auto) 1.2 Lymphocytes # (Auto) 1.4 Monocytes # (Auto) 0.8 Eosinophils # (Auto) 0.3 Basophils # (Auto) 0.1 CBC Comment AUTO DIFF Differential Total Cells 100 Counted Neutrophils % (Manual) 40 Band Neutrophils % 3 Lymphocytes % 30 Monocytes % 19 Eosinophils % 7 Basophils % 1 Neutrophils # (Manual) 1.6 Nucleated Red Blood Cells 1 Differential Comment FINAL DIFF MANUAL Platelet Estimate LOW Platelet Morphology Comment NORMAL Red Cell Morphology Comment NORMAL Sodium Level 144 Potassium Level 3.1 Chloride Level 116 Carbon Dioxide Level 19.6 Anion Gap 8 Blood Urea Nitrogen 14 Creatinine 1.17 Estimat Glomerular Filtration 48 Rate Random Glucose 78 Calcium Level 7.7 Magnesium Level 1.6 Date/Time Procedure Status Source Growth 07/28/16 13:50 Aerobic Blood Culture - Preliminary Resulted Blood Peripheral NO GROWTH IN 1 DAY 07/28/16 13:50 Anaerobic Blood Culture - Preliminary Resulted Blood Peripheral NO GROWTH IN 1 DAY 07/28/16 00:01 Stool Occult Blood (BERNICE) - Final Complete Stool Stool HEMOCCULT NEGATIVE Imaging Last Impressions Spleen Ultrasound 07/28/16 0000 Signed Impressions: Service Date/Time: Thursday, July 28, 2016 15:26 - CONCLUSION: Normal size spleen. Ramos Lo MD FACR Physical Exam HEENT: Normocephalic; atraumatic; no jaundice. Throat is clear. NECK: Neck is supple, no JVD, no lymphadenopathy. CHEST: CTA CARDIAC: RRR. ABDOMEN: Soft, nondistended, nontender; hepatosplenomegaly; bowel sounds are present in all four quadrants. EXTREMITIES: RLE splint/drsg SKIN: Normal; no rash; no jaundice. REFRIGERATOR ROOM CLERK: No focal deficits; alert and oriented times three. (Annia Roche [facility]) Assessment and Plan Plan ASSESSMENT: - Anemia. Pt with hx of esophagitis, portal gastropathy, gastric varices, but is not having any signs of active bleeding. She has occasional breakthrough heartburn and has been having more diarrhea for a few days, but no obvious blood loss. She was noted to have H/H of 6.5/18.5 on arrival. S/P EGD (07/28/16)---> single non bleeding ulcer 3-7 mm in size gastric antrum. Pathology. PPI. S/P 3 units PRBC and her HH is currently 8.1/23.9 - CDiff Diarrhea. 1st episode. Diarrhea improving. Flagyl. - Nonunion of distal tibia (right). Scheduled for surgery, but then found to have anemia/cdiff. Ortho following and is planning on surgery next week. - Liver cirrhosis secondary to ETOH/HCV. Quit drinking 10 months ago. Tx naive for HCV, but following as outpatient and planning on starting Harvoni soon (in process). - Portal gastropathy, gastric varices. No active bleeding. Cont. Propranolol. PPI. Add Octreotide - Hepatic encephalopathy. Xifaxan, Lactulose. - Pancytopenia secondary to cirrhosis. WBC 3.8, H/H 8.1/23.9, Plt 74. - RI, Creat 1.17. PLAN: - OMAYRA - Await pathology - PPI - D/C Octreotide - Cont. Propranolol - Cont. Flagyl - Cont. Lactulose- hold for diarrhea - Cont. Xifaxan - D/C Motrin - Monitor stool output - Avoid NSAIDs - Rpt EGD in 8 weeks - GI will sign off, please reconsult as needed - Pt seen and examined by Dr. Larios and myself and this note is written on his behalf (Annia Roche) Physician Comments Seen and examined with Ms. Melchor PINEDA, doing better. Less diarrhea. Gastric ulcer, biopsy-p. PPI, no Nsaids. Fu egd as recommended. Gi fu upon dc to complete farrell for Hep C. Will sign off,Thank you (Lew Larios MD) Annia Roche Jul 29, 2016 13:03 Lew Larios MD Jul 29, 2016 16:09
[2016-07-29 18:10] LABS: HEMATOCRIT 28.4 % (35.0-46.0); REVIEW FLAG FINAL
[2016-07-29] MEDS: traZODone HCL 50 MG TAB PO SCH (20:24)
[2016-07-30] MEDS: LACTATED RINGER'S 1000 ML IV SCH (03:51)
[2016-07-30] MEDS: SODIUM CHLOR 0.9% 1000 ML INJ 1,000 ML IV SCH (03:53)
[2016-07-30] MEDS: metroNIDAZOLE 500 MG INJ 100 ML IV SCH ×3 (03:53→20:29)
[2016-07-30 04:14] LABS: AUTOMATED NEUTROPHIL # 1.9 TH/MM3 (1.8-7.7); BASOPHIL % 1.1 % (0.0-2.0); EOSINOPHIL # 0.3 TH/MM3 (0-0.4); EOSINOPHIL % 8.5 % (0.0-4.0); HEMATOCRIT 26.4 % (35.0-46.0); LYMPH % 26.1 % (9.0-44.0); MEAN CELL VOLUME 89.7 FL (80.0-100.0); MEAN CORPUSCULAR HEMOGLOBIN 30.7 PG (27.0-34.0); MEAN CORPUSCULAR HGB CONC 34.2 % (32.0-36.0); MONO % 16.1 % (0.0-8.0); NEUT % 48.2 % (16.0-70.0); PLATELET COUNT 85 TH/MM3 (150-450); RED BLOOD COUNT 2.94 MIL/MM3 (4.00-5.30); RED CELL DISTRIBUTION WIDTH 15.1 % (11.6-17.2); WHITE BLOOD COUNT 3.9 TH/MM3 (4.0-11.0)
[2016-07-30 04:36] LABS: APTT (PATIENT) 36.2 SEC (24.3-30.1); INTERNATIONAL NORMALIZED RATIO 1.3 RATIO
[2016-07-30 04:50] LABS: HEMO FLAGS AUTO DIFF
[2016-07-30 05:01] LABS: ALKALINE PHOSPHATASE 102 U/L (45-117); ALT (GPT) 21 U/L (10-53); ANION GAP 7 MEQ/L (5-15); AST (GOT) 27 U/L (15-37); BICARBONATE 20.2 MEQ/L (21.0-32.0); BLOOD UREA NITROGEN 9 MG/DL (7-18); CHLORIDE 115 MEQ/L (98-107); GLOMERULAR FILTRATION RATE 48 ML/MIN (>89); POTASSIUM 3.5 MEQ/L (3.5-5.1); SODIUM (NA) 142 MEQ/L (136-145); TOTAL BILIRUBIN ADULT 0.9 MG/DL (0.2-1.0)
[2016-07-30 07:30] VITALS: BP 138/86; PULSE 63; RESP 18; TEMP 97.8; O2SAT 99
[2016-07-30 07:51] LABS: BANDS 1 % (0-6); BASOPHILS 1 % (0-2); EOSINOPHILS 5 % (0-4); MYELOCYTES 1 % (0-0); NEUTROPHIL # MANUAL DIFF 2.2 TH/MM3 (1.8-7.7); POLYS (SEG NEUTROPHILS) 54 % (16-70); WBC DIFF SAMPLE 100
[2016-07-30 07:53] LABS: BURR CELLS 1+ (NORMAL); PLATELET ESTIMATE SMEAR LOW (NORMAL); PLATELET MORPHOLOGY NORMAL (NORMAL); SCAN/DIFF FINAL DIFF MANUAL
[2016-07-30] MEDS: SODIUM CHLORIDE 0.9% FLUSH 5 ML FLUSH FLUSH SCH ×2 (08:29→20:29)
[2016-07-30] MEDS: RIFAXIMIN 550 MG TAB PO SCH ×2 (08:33→20:33)
[2016-07-30] MEDS: PROPRANOLOL HCL 20 MG TAB PO SCH ×3 (08:33→18:10)
[2016-07-30] MEDS: PANTOPRAZOLE SODIUM 40 MG VIAL IV PUSH SCH (08:33)
[2016-07-30] MEDS: FERROUS SULFATE 325 MG (65 MG ELEMENTAL IRON) TAB PO SCH (08:33)
--- NOTE | 2016-07-30 09:34 | HHI.PR ---
Subjective Remarks Follow-up for anemia, diarrhea Diarrhea frequency slowing down but still with loose stools, sometimes watery. No abdominal pain. Status post EGD yesterday, showed an antral ulcer. No nausea or vomiting. No fever. No hematochezia or melena. Objective Vitals Vital Signs Date Time Temp Pulse Resp B/P Pulse Ox O2 Delivery O2 Flow Rate FiO2 07/30/16 07:30 97.8 63 18 138/86 99 07/29/16 23:52 97.1 57 18 144/80 98 07/29/16 19:52 97.7 60 16 145/84 99 07/29/16 16:00 97.8 74 19 138/74 98 07/29/16 15:27 97.0 52 18 126/76 100 07/29/16 12:45 97.6 75 18 127/70 97 07/29/16 11:45 97.8 56 18 119/68 100 07/29/16 11:40 97.8 56 18 119/68 100 07/29/16 11:21 97.5 59 19 137/72 99 I/O 07/29/16 07/29/16 07/29/16 07/30/16 07/30/16 07/30/16 07:00 15:00 23:00 07:00 15:00 23:00 Intake Total 1040 ml 1581 ml 1640 ml 920 ml Output Total 0 ml Balance 1040 ml 1581 ml 1640 ml 920 ml Intake Oral 240 ml 720 ml 840 ml 320 ml IV Total 800 ml 861 ml 800 ml 600 ml Stool Total 0 ml # Voids 1 3 5 2 # Bowel Movements 1 1 1 Result Diagram: 07/30/16 0345 07/30/16 0345 Objective Remarks Not in distress, well-nourished, looks stated age PERRL, moderately pale conjunctiva without injection, anicteric Nose without bleeding, airway patent Supple neck, no masses or thyromegaly, trachea midline Normal rate and regular rhythm, no murmurs gallops or rubs appreciated. Clear to auscultation and symmetric bilaterally, normal respiratory effort. Normal bowel sounds, soft, non-tender, nondistended, no guarding. Extremities without clubbing, cyanosis, 2+ edema. Right lower extremity dressings in place. No rash of generalized distribution. Skin is warm and dry. AAO x3, no cranial nerve deficits, moves all 4 extremities, no focal neurologic deficits, no asterixis Normal mood, appropriate affect Procedures EGD: Showed gastric antral ulcer A/P Problem List: (1) Hepatitis C ICD Code: B19.20 Status: Chronic (2) Cirrhosis of liver ICD Code: K74.60 Status: Chronic (3) Acute renal failure ICD Code: N17.9 Status: Acute (4) Fracture of distal end of tibia with fibula ICD Code: S82.309A Status: Chronic (5) Anemia ICD Code: D64.9 Status: Acute (6) Hypokalemia ICD Code: E87.6 Status: Acute (7) Thrombocytopenia ICD Code: D69.6 Status: Acute Assessment and Plan Symptomatic anemia in a 55-year-old male Symptomatic anemia-status post transfusion with packed red blood cells, hemoglobin stable. Ultrasound of the liver showed normal spleen. 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 Check CBC daily, transfuse as needed. CT scan of the abdomen in October did not show any splenomegaly. Normocytic anemia may also be secondary to infection. Upper GI bleeding-gastroenterology following, status post EGD 07/29/16, showed antral ulcer, continue Protonix, octreotide, diet per GI. Stop NSAIDs. Thrombocytopenia-no obvious bleeding, status post platelet transfusion, transfuse as needed prior to surgery. 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 Sepsis secondary to C. difficile diarrhea- continue Flagyl, monitor. Sepsis based on fever, leukopenia with renal failure. No leukocytosis, discussed with Dr. Soriano, may start on a clinical trial. Acute renal failure- improved, secondary to overdiuresis and diarrhea, creatinine better, now down to 1.17, continue to hold lisinopril, stop IVF, recheck BMP tomorrow, possibly restart diuretics tomorrow. Improving, almost back to normal, recheck BMP tomorrow Tibia-fibula fracture, right -orthopedics following, nonweightbearing for now. Surgery Tuesday or Tuesday, medically cleared for surgery on Tuesday. Liver cirrhosis secondary to hepatitis C with history of hepatic encephalopathy- continue rifaximin and lactulose. Hypokalemia-replaced Hypomagnesemia-replace, recheck tomorrow. DVT prophylaxis: SCDs, pharmacological prophylaxis contraindicated Berkley Allen MD Jul 30, 2016 09:34
[2016-07-30] MEDS ORDERED: POTASSIUM CL 40 MEQ/30 ML LIQ UDC PO ONE (10:00)
[2016-07-30] MEDS: SUCRALFATE 1 GM/10 ML CUP PO SCH ×3 (11:03→20:33)
[2016-07-30 11:32] VITALS: BP 144/72; PULSE 60; RESP 18; TEMP 96.7; O2SAT 99
--- NOTE | 2016-07-30 14:49 | PD.ONC.PN ---
Subjective Subjective Remarks Afebrile overnight. Pt laying in bed watching TV in [facility]. She has no complaints. Her pain is controlled with pain medications. She is anxiously awaiting her surgery, which she states might be Tuesday or Tuesday. Objective Data Date Time Temp Pulse Resp B/P Pulse Ox O2 Delivery O2 Flow Rate FiO2 07/30/16 11:32 96.7 60 18 144/72 99 07/30/16 07:30 97.8 63 18 138/86 99 07/29/16 23:52 97.1 57 18 144/80 98 07/29/16 19:52 97.7 60 16 145/84 99 07/29/16 16:00 97.8 74 19 138/74 98 07/29/16 15:27 97.0 52 18 126/76 100 07/30/16 07/30/16 07/30/16 06:59 14:59 22:59 Intake Total 920 ml 720 ml Balance 920 ml 720 ml Result Diagram: 07/30/16 0345 07/30/16 0345 Laboratory Results Laboratory Tests Test 07/29/16 07/30/16 17:20 03:45 Hemoglobin 9.6 GM/DL 9.0 GM/DL Hematocrit 28.4 % 26.4 % White Blood Count 3.9 TH/MM3 Red Blood Count 2.94 MIL/MM3 Mean Corpuscular Volume 89.7 FL Mean Corpuscular Hemoglobin 30.7 PG Mean Corpuscular Hemoglobin 34.2 % Concent Red Cell Distribution Width 15.1 % Platelet Count 85 TH/MM3 Mean Platelet Volume 8.7 FL Neutrophils (%) (Auto) 48.2 % Lymphocytes (%) (Auto) 26.1 % Monocytes (%) (Auto) 16.1 % Eosinophils (%) (Auto) 8.5 % Basophils (%) (Auto) 1.1 % Neutrophils # (Auto) 1.9 TH/MM3 Lymphocytes # (Auto) 1.0 TH/MM3 Monocytes # (Auto) 0.6 TH/MM3 Eosinophils # (Auto) 0.3 TH/MM3 Basophils # (Auto) 0.0 TH/MM3 CBC Comment AUTO DIFF Differential Total Cells 100 Counted Neutrophils % (Manual) 54 % Band Neutrophils % 1 % Lymphocytes % 28 % Monocytes % 10 % Eosinophils % 5 % Basophils % 1 % Neutrophils # (Manual) 2.2 TH/MM3 Myelocytes 1 % Differential Comment FINAL DIFF MANUAL Platelet Estimate LOW Platelet Morphology Comment NORMAL Zach Cells 1+ Prothrombin Time 15.0 SEC Prothromb Time International 1.3 RATIO Ratio Activated Partial 36.2 SEC Thromboplast Time Fibrinogen 136 mg/dL Sodium Level 142 MEQ/L Potassium Level 3.5 MEQ/L Chloride Level 115 MEQ/L Carbon Dioxide Level 20.2 MEQ/L Anion Gap 7 MEQ/L Blood Urea Nitrogen 9 MG/DL Creatinine 1.17 MG/DL Estimat Glomerular Filtration 48 ML/MIN Rate Random Glucose 104 MG/DL Calcium Level 7.8 MG/DL Total Bilirubin 0.9 MG/DL Aspartate Amino Transf 27 U/L (AST/SGOT) Alanine Aminotransferase 21 U/L (ALT/SGPT) Alkaline Phosphatase 102 U/L Ammonia 104 MCMOL/L Total Protein 5.2 GM/DL Albumin 2.1 GM/DL Culture Results Microbiology Date/Time Procedure Status Source Growth 07/28/16 00:01 Stool Occult Blood (BERNICE) - Final Complete Stool Stool HEMOCCULT NEGATIVE 07/28/16 13:44 Aerobic Blood Culture - Preliminary Resulted Blood Peripheral NO GROWTH IN 2 DAYS 07/28/16 13:44 Anaerobic Blood Culture - Preliminary Resulted Blood Peripheral NO GROWTH IN 2 DAYS 07/28/16 13:50 Aerobic Blood Culture - Preliminary Resulted Blood Peripheral NO GROWTH IN 2 DAYS 07/28/16 13:50 Anaerobic Blood Culture - Preliminary Resulted Blood Peripheral NO GROWTH IN 2 DAYS Administered Medications Medications (Trade) Dose Ordered Sig/Osmin Route PRN Reason Start Time Stop Time Status Last Admin Dose Admin Oxycodone HCl (Roxicodone) 5 mg Q6H PRN PO pain 3-10 07/27/16 19:15 07/30/16 11:04 Ferrous Sulfate (Ferrous Sulfate) 325 mg BID PO 07/27/16 21:00 07/30/16 08:33 Lactulose (Lactulose Liq) 40 ml QID PO 07/27/16 21:00 Hold 07/29/16 08:45 Propranolol HCl (Inderal) 20 mg TID PO 07/28/16 09:00 07/30/16 08:33 Rifaximin (Xifaxan) 550 mg BID PO 07/27/16 21:00 07/30/16 08:33 Spironolactone (Aldactone) 25 mg DAILY PO 07/28/16 09:00 Hold 07/28/16 08:41 Trazodone HCl 50 mg 50 mg HS PO 07/27/16 21:00 07/29/16 20:24 Metronidazole (Flagyl 500 Mg Inj) 100 ml @ 100 mls/hr Q8H IV 07/28/16 04:00 07/30/16 11:04 IV Flush (NS Flush) 2 ml BID FLUSH 07/28/16 12:15 07/28/16 12:30 Sucralfate (Carafate Liq) 1 gm ACHS PO 07/30/16 11:00 07/30/16 11:03 Objective Remarks GENERAL: Middle aged woman laying in bed in [facility]. SKIN: Warm and dry. HEAD: Normocephalic. EYES: No injection or drainage. NECK: Supple, trachea midline. CARDIOVASCULAR: +S1/S2. No murmur appreciated. RESPIRATORY: Breath sounds equal bilaterally. No accessory muscle use. GASTROINTESTINAL: Abdomen soft, non-tender, nondistended. EXTREMITIES: Trace edema L leg, Splint to R leg. Capillary refill 2-3 seconds. NEUROLOGICAL: Moves all extremities independently. No obvious focal defects. Assessment/Plan Problem List: (1) Pancytopenia Status: Acute Plan: -- No evidence of bleeding -- Likely due to liver disease -- Monitor daily CBC -- Her baseline platelet count is less than 100K -- Transfuse as needed (2) Hepatitis C Status: Chronic Plan: -- Being followed by Dr. Chaparro -- Liver enzymes, bili normal. (3) Iron deficiency anemia Status: Chronic Plan: -- On Ferrous sulfate 325po BID -- Ferritin low-normal. (4) Fracture of distal end of tibia with fibula Status: Chronic Plan: -- Awaiting hardware replacement surgery -- This may be Tuesday or Tuesday depending on blood counts and kidney function -- Followed by ortho. (5) Gastric ulcer Status: Acute Plan: -- Panendoscopy on 07/28/16 showed 3-7mm ulcer in gastric antrum. No bleeding. Pathology pending. -- On carafate, PPI -- GI following (6) Coagulopathy Status: Acute Plan: --monitor --d/t liver disease Assessment Ms. Trujillo is a 55 y/o female who was admitted for symptomatic anemia. She has a PMH of alcohol abuse, Hep C and pancytopenia. She is awaiting sx to have hardware replaced from a tib-fib fracture in Oct 2015. Plan 1. Daily CBC 2. Transfuse just prior to surgery as needed d/t underlying liver disease. 3. Continue iron replacement. 4. Supportive care. Attending Statement The exam, history, and the medical decision-making described in the above note were completed with the assistance of the mid-level provider. I reviewed and agree with the findings presented. I attest that I had a [id number] encounter with the patient on the same day, and personally performed and documented my assessment and findings in the medical record. Pt seen and examined. Feels better than when she first came in. Tolerated transfusion, as suspected no significant rise, therefore would recommend transfusion during surgery of after if needed. No overt bleeding with thrombocytopenia. Diarrhea from lactulose, doubt that oral iron is being absorbed efficiently. She reports having had IV iron in the past, iron labs do not exclude iron deficiency. Trial IV iron in hopes of optimizing hgb prior to surgery. Coagulopathy from underlying liver disease, likely pt's baseline. Sheyla Núñez Jul 30, 2016 14:49 Aleksandra Murrell MD Jul 30, 2016 18:23
[2016-07-30 16:00] VITALS: BP 136/86; PULSE 66; RESP 17; TEMP 97.8; O2SAT 100
[2016-07-30 19:52] VITALS: BP 150/88; PULSE 65; RESP 18; TEMP 98.4; O2SAT 97
[2016-07-30] MEDS ORDERED: IRON SUCROSE INJ 100 MG in SODIUM CHLORIDE 0.9% INJ 100 ML IV ONE (20:00)
[2016-07-30] MEDS: PANTOPRAZOLE SOD 40 MG DELAYED RELEASE TAB PO SCH (20:33)
[2016-07-30] MEDS: traZODone HCL 50 MG TAB PO SCH (20:34)
[2016-07-30 23:52] VITALS: BP 156/84; PULSE 64; RESP 18; TEMP 97.8; O2SAT 97
[2016-07-31] MEDS: metroNIDAZOLE 500 MG INJ 100 ML IV SCH ×3 (03:24→20:42)
[2016-07-31 04:28] LABS: AUTOMATED NEUTROPHIL # 2.7 TH/MM3 (1.8-7.7); BASOPHIL # 0.1 TH/MM3 (0-0.2); BASOPHIL % 1.3 % (0.0-2.0); EOSINOPHIL # 0.4 TH/MM3 (0-0.4); EOSINOPHIL % 7.9 % (0.0-4.0); HEMATOCRIT 26.9 % (35.0-46.0); LYMPH % 24.5 % (9.0-44.0); LYMPHOCYTE # 1.3 TH/MM3 (1.0-4.8); MEAN CELL VOLUME 89.2 FL (80.0-100.0); MEAN CORPUSCULAR HEMOGLOBIN 30.8 PG (27.0-34.0); MEAN CORPUSCULAR HGB CONC 34.5 % (32.0-36.0); NEUT % 53.3 % (16.0-70.0); PLATELET COUNT 97 TH/MM3 (150-450); RED BLOOD COUNT 3.02 MIL/MM3 (4.00-5.30); RED CELL DISTRIBUTION WIDTH 14.7 % (11.6-17.2); WHITE BLOOD COUNT 5.1 TH/MM3 (4.0-11.0)
[2016-07-31 04:34] LABS: HEMO FLAGS DIFF FINAL
[2016-07-31 04:41] LABS: BICARBONATE 20.1 MEQ/L (21.0-32.0); MAGNESIUM 1.5 MG/DL (1.5-2.5); POTASSIUM 3.8 MEQ/L (3.5-5.1)
[2016-07-31] MEDS: SUCRALFATE 1 GM/10 ML CUP PO SCH ×4 (05:43→20:42)
[2016-07-31 08:00] VITALS: BP 129/74; PULSE 63; RESP 16; TEMP 97.1; O2SAT 96
--- NOTE | 2016-07-31 08:09 | PD.ONC.PN ---
Subjective Subjective Remarks Afebrile overnight. Patient continuing to have pain in her leg. She is eager to know when her surgery date is. She tolerated the iron infusion yesterday. Objective Data Date Time Temp Pulse Resp B/P Pulse Ox O2 Delivery O2 Flow Rate FiO2 07/30/16 23:52 97.8 64 18 156/84 97 07/30/16 19:52 98.4 65 18 150/88 97 07/30/16 16:00 97.8 66 17 136/86 100 07/30/16 11:32 96.7 60 18 144/72 99 07/31/16 07/31/16 07/31/16 07:00 15:00 23:00 Intake Total 420 ml Output Total 650 ml Balance -230 ml Result Diagram: 07/31/16 0349 07/31/16 0349 Laboratory Results Laboratory Tests Test 07/31/16 03:49 White Blood Count 5.1 TH/MM3 Red Blood Count 3.02 MIL/MM3 Hemoglobin 9.3 GM/DL Hematocrit 26.9 % Mean Corpuscular Volume 89.2 FL Mean Corpuscular Hemoglobin 30.8 PG Mean Corpuscular Hemoglobin 34.5 % Concent Red Cell Distribution Width 14.7 % Platelet Count 97 TH/MM3 Mean Platelet Volume 9.0 FL Neutrophils (%) (Auto) 53.3 % Lymphocytes (%) (Auto) 24.5 % Monocytes (%) (Auto) 13.0 % Eosinophils (%) (Auto) 7.9 % Basophils (%) (Auto) 1.3 % Neutrophils # (Auto) 2.7 TH/MM3 Lymphocytes # (Auto) 1.3 TH/MM3 Monocytes # (Auto) 0.7 TH/MM3 Eosinophils # (Auto) 0.4 TH/MM3 Basophils # (Auto) 0.1 TH/MM3 CBC Comment DIFF FINAL Differential Comment Sodium Level 144 MEQ/L Potassium Level 3.8 MEQ/L Chloride Level 115 MEQ/L Carbon Dioxide Level 20.1 MEQ/L Anion Gap 9 MEQ/L Blood Urea Nitrogen 6 MG/DL Creatinine 0.93 MG/DL Estimat Glomerular Filtration 63 ML/MIN Rate Random Glucose 88 MG/DL Calcium Level 8.1 MG/DL Magnesium Level 1.5 MG/DL Culture Results Microbiology Date/Time Procedure Status Source Growth 07/28/16 13:44 Aerobic Blood Culture - Preliminary Resulted Blood Peripheral NO GROWTH IN 2 DAYS 07/28/16 13:44 Anaerobic Blood Culture - Preliminary Resulted Blood Peripheral NO GROWTH IN 2 DAYS 07/28/16 13:50 Aerobic Blood Culture - Preliminary Resulted Blood Peripheral NO GROWTH IN 2 DAYS 07/28/16 13:50 Anaerobic Blood Culture - Preliminary Resulted Blood Peripheral NO GROWTH IN 2 DAYS Administered Medications Medications (Trade) Dose Ordered Sig/Osmin Route PRN Reason Start Time Stop Time Status Last Admin Dose Admin Oxycodone HCl (Roxicodone) 5 mg Q6H PRN PO pain 3-10 07/27/16 19:15 07/31/16 03:25 Lactulose (Lactulose Liq) 40 ml QID PO 07/27/16 21:00 Hold 07/29/16 08:45 Propranolol HCl (Inderal) 20 mg TID PO 07/28/16 09:00 07/30/16 18:10 Rifaximin (Xifaxan) 550 mg BID PO 07/27/16 21:00 07/30/16 20:33 Spironolactone (Aldactone) 25 mg DAILY PO 07/28/16 09:00 Hold 07/28/16 08:41 Trazodone HCl 50 mg 50 mg HS PO 07/27/16 21:00 07/30/16 20:34 Metronidazole (Flagyl 500 Mg Inj) 100 ml @ 100 mls/hr Q8H IV 07/28/16 04:00 07/31/16 03:24 IV Flush (NS Flush) 2 ml BID FLUSH 07/28/16 12:15 07/30/16 20:29 Pantoprazole Sodium (Protonix) 40 mg Q12HR PO 07/30/16 21:00 07/30/16 20:33 Sucralfate (Carafate Liq) 1 gm ACHS PO 07/30/16 11:00 07/31/16 05:43 Objective Remarks GENERAL: Pleasant female, sitting up in bed in nad. SKIN: Warm and dry. HEAD: Normocephalic. EYES: No injection or drainage. NECK: Supple, trachea midline. CARDIOVASCULAR: +S1/S2. No murmur appreciated. RESPIRATORY: Breath sounds equal bilaterally. No accessory muscle use. GASTROINTESTINAL: Abdomen soft, non-tender, nondistended. EXTREMITIES: Trace edema L leg, Splint to RLE. peripheral extremities warm and well perfused. NEUROLOGICAL: awake and alert, normal speech. Assessment/Plan Problem List: (1) Thrombocytopenia Status: Acute Plan: 07/31/16: platelet count stable. --recommend wendie-operative transfusion only --d/t liver dysfunction + splenomegaly (2) Iron deficiency anemia Status: Chronic Plan: --07/31/16: hgb stable. tolerated IV iron sucrose 07/30/16. monitor CBC ~1500mg iron deficit --studies consistent with iron deficiency anemia (3) Fracture of distal end of tibia with fibula Status: Chronic Plan: -- Awaiting hardware replacement surgery -- This may be Tuesday or Tuesday depending on blood counts and kidney function -- Followed by ortho. (4) Gastric ulcer Status: Acute Plan: -- Panendoscopy on 07/28/16 showed 3-7mm ulcer in gastric antrum. No bleeding. -- On carafate, PPI -- GI following (5) Coagulopathy Status: Acute Plan: --monitor --d/t liver disease (6) Hepatitis C Status: Chronic Plan: --GI following Assessment Ms. Trujillo is a 55 y/o female who was admitted for symptomatic anemia. She has a PMH of alcohol abuse, Hep C and pancytopenia. She is awaiting sx to have hardware replaced from a tib-fib fracture in Oct 2015. Plan 1. monitor CBC 2. no transfusion today Attending Statement The exam, history, and the medical decision-making described in the above note were completed with the assistance of the mid-level provider. I reviewed and agree with the findings presented. I attest that I had a [id number] encounter with the patient on the same day, and personally performed and documented my assessment and findings in the medical record. Hgb improve, renal function improve, blood counts optimized for surgery. Tolerated iron well. Sheyla Núñez Jul 31, 2016 08:09 Aleksandra Murrell MD Jul 31, 2016 14:12
[2016-07-31] MEDS ORDERED: MAGNESIUM SULFATE 1 GM PREMIX 100 ML IV ONE (08:15)
[2016-07-31] MEDS: PANTOPRAZOLE SOD 40 MG DELAYED RELEASE TAB PO SCH ×2 (08:58→20:42)
[2016-07-31] MEDS: RIFAXIMIN 550 MG TAB PO SCH ×2 (08:58→20:42)
[2016-07-31] MEDS: PROPRANOLOL HCL 20 MG TAB PO SCH ×3 (08:58→16:13)
[2016-07-31] MEDS: SODIUM CHLORIDE 0.9% FLUSH 5 ML FLUSH FLUSH SCH ×2 (08:58→20:42)
--- NOTE | 2016-07-31 09:00 | HHI.PR ---
Subjective Remarks Follow-up for anemia, diarrhea urinary No obvious bleeding, no hematochezia or melena. Diarrhea less frequent, no abdominal pain, a little bit more formed, not watery. Afebrile. Not short of breath. A little bit more sleepy. Objective Vitals Vital Signs Date Time Temp Pulse Resp B/P Pulse Ox O2 Delivery O2 Flow Rate FiO2 07/30/16 23:52 97.8 64 18 156/84 97 07/30/16 19:52 98.4 65 18 150/88 97 07/30/16 16:00 97.8 66 17 136/86 100 07/30/16 11:32 96.7 60 18 144/72 99 I/O 07/30/16 07/30/16 07/30/16 07/31/16 07/31/16 07/31/16 06:59 14:59 22:59 06:59 14:59 22:59 Intake Total 920 ml 1440 ml 680 ml 420 ml Output Total 250 ml 650 ml Balance 920 ml 1440 ml 430 ml -230 ml Intake Oral 320 ml 1440 ml 480 ml 320 ml IV Total 600 ml 200 ml 100 ml Output Urine Total 250 ml 650 ml # Voids 2 11 1 # Bowel Movements 1 2 0 1 Result Diagram: 07/31/1634807/31/16348 Objective Remarks Not in distress, well-nourished, looks stated age PERRL, moderately pale conjunctiva without injection, anicteric Nose without bleeding, airway patent Supple neck, no masses or thyromegaly, trachea midline Normal rate and regular rhythm, no murmurs gallops or rubs appreciated. Clear to auscultation and symmetric bilaterally, normal respiratory effort. Normal bowel sounds, soft, non-tender, nondistended, no guarding. Extremities without clubbing, cyanosis, 2+ edema. Right lower extremity dressings in place. No rash of generalized distribution. Skin is warm and dry. AAO x3, no cranial nerve deficits, moves all 4 extremities, no focal neurologic deficits, mild asterixis present Normal mood, appropriate affect Procedures EGD: Showed gastric antral ulcer A/P Problem List: (1) Hepatitis C ICD Code: B19.20 Status: Chronic (2) Cirrhosis of liver ICD Code: K74.60 Status: Chronic (3) Acute renal failure ICD Code: N17.9 Status: Acute (4) Fracture of distal end of tibia with fibula ICD Code: S82.309A Status: Chronic (5) Anemia ICD Code: D64.9 Status: Acute (6) Hypokalemia ICD Code: E87.6 Status: Acute (7) Thrombocytopenia ICD Code: D69.6 Status: Acute Assessment and Plan Symptomatic anemia in a 55-year-old male Symptomatic chronic iron deficiency anemia-status post transfusion with packed red blood cells, hemoglobin stable. Ultrasound of the liver showed normal spleen. 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 CT scan of the abdomen in October did not show any splenomegaly. Normocytic anemia may also be secondary to infection. Iron sucrose intravenously started. Upper GI bleeding-gastroenterology following, status post EGD 07/29/16, showed antral ulcer, continue Protonix, octreotide, diet per GI. Stop NSAIDs. Thrombocytopenia-no obvious bleeding, status post platelet transfusion, transfuse as needed prior to surgery. 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 Sepsis secondary to C. difficile diarrhea- continue Flagyl, monitor. Sepsis based on fever, leukopenia with renal failure. Sepsis resolved, No leukocytosis , diarrhea improving, continue Flagyl. Acute renal failure- improved, secondary to overdiuresis and diarrhea, creatinine better, now down to 1.17, continue to hold lisinopril, stop IVF, creatinine stable, restart diuretics. Hepatic encephalopathy with hyperammonemia- restart lactulose, ammonia 104. Tibia-fibula fracture, right -orthopedics following, nonweightbearing for now. Surgery Tuesday or Tuesday, medically cleared for surgery on Tuesday. Liver cirrhosis secondary to hepatitis C with history of hepatic encephalopathy- continue rifaximin and lactulose. Hypokalemia-replaced Hypomagnesemia-replace DVT prophylaxis: SCDs, pharmacological prophylaxis contraindicated Berkley Allen MD Jul 31, 2016 08:59
[2016-07-31 09:05] LABS: APTT (PATIENT) 37.6 SEC (24.3-30.1); INTERNATIONAL NORMALIZED RATIO 1.4 RATIO; PROTHROMBIN TIME - PATIENT 15.8 SEC (9.8-11.6)
[2016-07-31] MEDS: LACTULOSE SYRUP 20 GM/30 ML CUP PO SCH ×2 (10:30→20:42)
[2016-07-31] MEDS: SPIRONOLACTONE 25 MG TAB PO SCH (10:30)
[2016-07-31 12:00] VITALS: BP 143/70; PULSE 64; RESP 16; TEMP 97.1; O2SAT 96
[2016-07-31 15:36] VITALS: BP 129/66; PULSE 65; RESP 16; TEMP 97.7; O2SAT 96
[2016-07-31 20:00] VITALS: BP 145/78; PULSE 61; RESP 18; TEMP 98; O2SAT 100
[2016-07-31] MEDS: traZODone HCL 50 MG TAB PO SCH (20:42)
[2016-08-01] VITALS: BP 152/82; PULSE 67; RESP 18; TEMP 98.6; O2SAT 97
[2016-08-01] MEDS: SUCRALFATE 1 GM/10 ML CUP PO SCH ×4 (03:53→19:17)
[2016-08-01] MEDS: metroNIDAZOLE 500 MG INJ 100 ML IV SCH ×3 (03:54→19:18)
[2016-08-01 05:31] LABS: AUTOMATED NEUTROPHIL # 2.7 TH/MM3 (1.8-7.7); BASOPHIL # 0.1 TH/MM3 (0-0.2); BASOPHIL % 1.4 % (0.0-2.0); EOSINOPHIL # 0.4 TH/MM3 (0-0.4); EOSINOPHIL % 7.3 % (0.0-4.0); HEMATOCRIT 26.7 % (35.0-46.0); LYMPH % 22.8 % (9.0-44.0); LYMPHOCYTE # 1.1 TH/MM3 (1.0-4.8); MEAN CELL VOLUME 89.9 FL (80.0-100.0); MEAN CORPUSCULAR HEMOGLOBIN 31.3 PG (27.0-34.0); MEAN CORPUSCULAR HGB CONC 34.8 % (32.0-36.0); MONO % 13.2 % (0.0-8.0); NEUT % 55.3 % (16.0-70.0); PLATELET COUNT 86 TH/MM3 (150-450); RED BLOOD COUNT 2.97 MIL/MM3 (4.00-5.30); RED CELL DISTRIBUTION WIDTH 14.8 % (11.6-17.2); WHITE BLOOD COUNT 4.8 TH/MM3 (4.0-11.0)
[2016-08-01 05:34] LABS: APTT (PATIENT) 38.5 SEC (24.3-30.1); INTERNATIONAL NORMALIZED RATIO 1.5 RATIO; PROTHROMBIN TIME - PATIENT 16.7 SEC (9.8-11.6)
[2016-08-01 05:50] LABS: HEMO FLAGS AUTO DIFF
[2016-08-01 08:00] VITALS: BP 125/68; PULSE 65; RESP 16; TEMP 97.1; O2SAT 97
[2016-08-01] MEDS: PANTOPRAZOLE SOD 40 MG DELAYED RELEASE TAB PO SCH ×2 (08:33→19:17)
[2016-08-01] MEDS: RIFAXIMIN 550 MG TAB PO SCH ×2 (08:33→19:17)
[2016-08-01] MEDS: PROPRANOLOL HCL 20 MG TAB PO SCH ×3 (08:33→17:10)
[2016-08-01] MEDS: SPIRONOLACTONE 25 MG TAB PO SCH ×2 (08:33→19:17)
[2016-08-01] MEDS: LACTULOSE SYRUP 20 GM/30 ML CUP PO SCH ×2 (08:33→19:17)
[2016-08-01] MEDS: SODIUM CHLORIDE 0.9% FLUSH 5 ML FLUSH FLUSH SCH ×2 (08:35→19:18)
--- NOTE | 2016-08-01 09:57 | HHI.PR ---
Subjective Remarks Follow for diarrhea Diarrhea improved, less frequent, twice a day, also lactulose, non-watery, mildly loose. No abdominal pain. Denies any headache or chest pain. No hematochezia or melena. Objective Vitals Vital Signs Date Time Temp Pulse Resp B/P Pulse Ox O2 Delivery O2 Flow Rate FiO2 08/01/16 08:00 97.1 65 16 125/68 97 08/01/16 00:00 98.6 67 18 152/82 97 07/31/16 20:00 98.0 61 18 145/78 100 07/31/16 15:36 97.7 65 16 129/66 96 07/31/16 15:11 20 07/31/16 12:00 97.1 64 16 143/70 96 I/O 07/31/16 07/31/16 07/31/16 08/01/16 08/01/16 08/01/16 07:00 15:00 23:00 07:00 15:00 23:00 Intake Total 420 ml 580 ml 340 ml 340 ml Output Total 650 ml 550 ml 250 ml 600 ml Balance -230 ml 30 ml 90 ml -260 ml Intake Oral 320 ml 480 ml 240 ml 240 ml IV Total 100 ml 100 ml 100 ml 100 ml Output Urine Total 650 ml 550 ml 250 ml 600 ml # Bowel Movements 1 1 0 0 Result Diagram: 08/01/16 0443 07/31/16 0349 Objective Remarks Not in distress, well-nourished, looks stated age PERRL, moderately pale conjunctiva without injection, anicteric Nose without bleeding, airway patent Supple neck, no masses or thyromegaly, trachea midline Normal rate and regular rhythm, no murmurs gallops or rubs appreciated. Clear to auscultation and symmetric bilaterally, normal respiratory effort. Normal bowel sounds, soft, non-tender, nondistended, no guarding. Extremities without clubbing, cyanosis, 2+ edema. Right lower extremity dressings in place. No rash of generalized distribution. Skin is warm and dry. AAO x3, no cranial nerve deficits, moves all 4 extremities, no focal neurologic deficits, mild asterixis present Normal mood, appropriate affect Procedures EGD: Showed gastric antral ulcer A/P Problem List: (1) Hepatitis C ICD Code: B19.20 Status: Chronic (2) Cirrhosis of liver ICD Code: K74.60 Status: Chronic (3) Acute renal failure ICD Code: N17.9 Status: Acute (4) Fracture of distal end of tibia with fibula ICD Code: S82.309A Status: Chronic (5) Anemia ICD Code: D64.9 Status: Acute (6) Hypokalemia ICD Code: E87.6 Status: Acute (7) Thrombocytopenia ICD Code: D69.6 Status: Acute Assessment and Plan Symptomatic anemia in a 55-year-old male Symptomatic chronic iron deficiency anemia-status post transfusion with packed red blood cells, hemoglobin stable. Ultrasound of the liver showed normal spleen. 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 CT scan of the abdomen in October did not show any splenomegaly. Normocytic anemia may also be secondary to infection. Iron sucrose intravenously given. Upper GI bleeding-gastroenterology following, status post EGD 07/29/16, showed antral ulcer, continue Protonix, octreotide, diet per GI. Stop NSAIDs. Thrombocytopenia-no obvious bleeding, status post platelet transfusion, transfuse as needed prior to surgery. 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 Recheck CBC tomorrow, transfuse as needed. Sepsis secondary to C. difficile diarrhea- continue Flagyl, monitor. Sepsis based on fever, leukopenia with renal failure. Sepsis resolved, No leukocytosis , diarrhea improving, continue Flagyl. Acute renal failure- improved, secondary to overdiuresis and diarrhea, creatinine back to normal, continue Aldactone. Liver cirrhosis, Hepatic encephalopathy with hyperammonemia-continue lactulose, recheck ammonia tomorrow. Continue propranolol. Bilateral lower extremity edema-likely secondary to cirrhosis, increased Aldactone Hypertension-increase Aldactone, continue propranolol. Tibia-fibula fracture, right -orthopedics following, nonweightbearing for now. Surgery Tuesday or Tuesday, medically cleared for surgery on Tuesday. Liver cirrhosis secondary to hepatitis C with history of hepatic encephalopathy- continue rifaximin and lactulose. Hypokalemia-replaced Hypomagnesemia-replace DVT prophylaxis: SCDs, pharmacological prophylaxis contraindicated Berkley Allen MD Aug 01, 2016 09:57
[2016-08-01 10:12] LABS: PLATELET ESTIMATE SMEAR LOW (NORMAL); PLATELET MORPHOLOGY NORMAL (NORMAL); SCAN/DIFF AUTO DIFF CONFIRMED
[2016-08-01 12:00] VITALS: BP 158/82; PULSE 59; RESP 22; TEMP 97.1; O2SAT 98
[2016-08-01 16:00] VITALS: BP 170/88; PULSE 71; RESP 17; TEMP 97.6; O2SAT 98
[2016-08-01] MEDS: traZODone HCL 50 MG TAB PO SCH (19:18)
[2016-08-01 20:00] VITALS: BP 150/83; PULSE 64; RESP 18; TEMP 97.6; O2SAT 99
[2016-08-01 23:55] VITALS: BP 135/69; PULSE 73; RESP 18; TEMP 98.6; O2SAT 97
[2016-08-02] MEDS: SUCRALFATE 1 GM/10 ML CUP PO SCH ×4 (04:56→20:22)
[2016-08-02] MEDS: metroNIDAZOLE 500 MG INJ 100 ML IV SCH ×3 (04:56→20:21)
[2016-08-02 05:55] LABS: AUTOMATED NEUTROPHIL # 2.9 TH/MM3 (1.8-7.7); BASOPHIL # 0.1 TH/MM3 (0-0.2); BASOPHIL % 1.4 % (0.0-2.0); EOSINOPHIL # 0.3 TH/MM3 (0-0.4); EOSINOPHIL % 6.7 % (0.0-4.0); HEMATOCRIT 28.1 % (35.0-46.0); LYMPH % 20.8 % (9.0-44.0); MEAN CELL VOLUME 88.9 FL (80.0-100.0); MEAN CORPUSCULAR HEMOGLOBIN 30.7 PG (27.0-34.0); MEAN CORPUSCULAR HGB CONC 34.6 % (32.0-36.0); MONO % 12.4 % (0.0-8.0); NEUT % 58.7 % (16.0-70.0); PLATELET COUNT 77 TH/MM3 (150-450); RED BLOOD COUNT 3.16 MIL/MM3 (4.00-5.30); WHITE BLOOD COUNT 4.9 TH/MM3 (4.0-11.0)
[2016-08-02 06:03] LABS: HEMO FLAGS AUTO DIFF
[2016-08-02 06:09] LABS: APTT (PATIENT) 38.1 SEC (24.3-30.1); INTERNATIONAL NORMALIZED RATIO 1.5 RATIO; PROTHROMBIN TIME - PATIENT 16.4 SEC (9.8-11.6)
[2016-08-02 06:19] LABS: BICARBONATE 20.7 MEQ/L (21.0-32.0); POTASSIUM 3.4 MEQ/L (3.5-5.1)
--- NOTE | 2016-08-02 07:03 | PD.ORT.PN ---
Subjective Subjective Remarks s/p nonunion right distal tibia fx patietn doing well. no complaints. resting comfortably Objective Vitals Vital Signs Date Time Temp Pulse Resp B/P Pulse Ox O2 Delivery O2 Flow Rate FiO2 08/01/16 23:55 98.6 73 18 135/69 97 08/01/16 20:00 97.6 64 18 150/83 99 08/01/16 16:00 97.6 71 17 170/88 98 08/01/16 12:00 97.1 59 22 158/82 98 08/01/16 08:00 97.1 65 16 125/68 97 I/O 08/01/16 08/01/16 08/01/16 08/02/16 08/02/16 08/02/16 07:00 15:00 23:00 07:00 15:00 23:00 Intake Total 340 ml 720 ml 340 ml 100 ml Output Total 600 ml 400 ml 450 ml 400 ml Balance -260 ml 320 ml -110 ml -300 ml Intake Oral 240 ml 720 ml 240 ml 0 ml IV Total 100 ml 100 ml 100 ml Output Urine Total 600 ml 400 ml 450 ml 400 ml # Voids 3 # Bowel Movements 0 2 1 1 Result Diagram: 08/02/16 0530 08/02/16 0530 Other Results Laboratory Tests Test 08/02/16 05:30 Prothrombin Time 16.4 SEC (9.8-11.6) Prothromb Time International 1.5 RATIO Ratio Objective Remarks RLE: good PROM with minimal pain. NVI distally wtih good cap refill. 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 will plan for possible surgery tomorrow for right ankle -resume diet -NPO after MN -NWB -sign consents Rafa Valencia Aug 02, 2016 07:03
[2016-08-02 08:00] VITALS: BP_SYST 168; PULSE 67; RESP 18; TEMP 97.1; O2SAT 98
[2016-08-02] MEDS: RIFAXIMIN 550 MG TAB PO SCH ×2 (08:00→20:22)
[2016-08-02] MEDS: PANTOPRAZOLE SOD 40 MG DELAYED RELEASE TAB PO SCH ×2 (08:00→20:22)
[2016-08-02] MEDS: SPIRONOLACTONE 25 MG TAB PO SCH ×2 (08:00→20:22)
[2016-08-02] MEDS: PROPRANOLOL HCL 20 MG TAB PO SCH ×3 (08:00→18:37)
[2016-08-02] MEDS: LACTULOSE SYRUP 20 GM/30 ML CUP PO SCH ×2 (08:00→20:22)
[2016-08-02] MEDS: SODIUM CHLORIDE 0.9% FLUSH 5 ML FLUSH FLUSH SCH ×2 (08:03→20:23)
[2016-08-02 08:38] LABS: PLATELET ESTIMATE SMEAR LOW (NORMAL); PLATELET MORPHOLOGY NORMAL (NORMAL); SCAN/DIFF AUTO DIFF CONFIRMED
[2016-08-02] MEDS ORDERED: POTASSIUM CL 40 MEQ/30 ML LIQ UDC PO ONE (09:00)
--- NOTE | 2016-08-02 09:32 | HHI.PR ---
Subjective Remarks Follow-up for anemia and diarrhea Diarrhea has improved, almost resolved, loose stools from lactulose likely. No abdominal pain, afebrile. More awake today. Objective Vitals Vital Signs Date Time Temp Pulse Resp B/P Pulse Ox O2 Delivery O2 Flow Rate FiO2 08/02/16 08:00 97.1 67 18 168/ 98 08/01/16 23:55 98.6 73 18 135/69 97 08/01/16 20:00 97.6 64 18 150/83 99 08/01/16 16:00 97.6 71 17 170/88 98 08/01/16 12:00 97.1 59 22 158/82 98 I/O 08/01/16 08/01/16 08/01/16 08/02/16 08/02/16 08/02/16 07:00 15:00 23:00 07:00 15:00 23:00 Intake Total 340 ml 720 ml 340 ml 100 ml Output Total 600 ml 400 ml 450 ml 400 ml Balance -260 ml 320 ml -110 ml -300 ml Intake Oral 240 ml 720 ml 240 ml 0 ml IV Total 100 ml 100 ml 100 ml Output Urine Total 600 ml 400 ml 450 ml 400 ml # Voids 3 # Bowel Movements 0 2 1 1 Result Diagram: 08/02/1652908/02/16 0530 Objective Remarks Not in distress, well-nourished, looks stated age PERRL, moderately pale conjunctiva without injection, anicteric Nose without bleeding, airway patent Supple neck, no masses or thyromegaly, trachea midline Normal rate and regular rhythm, no murmurs gallops or rubs appreciated. Clear to auscultation and symmetric bilaterally, normal respiratory effort. Normal bowel sounds, soft, non-tender, nondistended, no guarding. Extremities without clubbing, cyanosis, 2+ edema. Right lower extremity dressings in place. No rash of generalized distribution. Skin is warm and dry. AAO x3, no cranial nerve deficits, moves all 4 extremities, no focal neurologic deficits, mild asterixis present Normal mood, appropriate affect Procedures EGD: Showed gastric antral ulcer A/P Problem List: (1) Hepatitis C ICD Code: B19.20 Status: Chronic (2) Cirrhosis of liver ICD Code: K74.60 Status: Chronic (3) Acute renal failure ICD Code: N17.9 Status: Acute (4) Fracture of distal end of tibia with fibula ICD Code: S82.309A Status: Chronic (5) Anemia ICD Code: D64.9 Status: Acute (6) Hypokalemia ICD Code: E87.6 Status: Acute (7) Thrombocytopenia ICD Code: D69.6 Status: Acute Assessment and Plan Symptomatic anemia in a 55-year-old male Symptomatic chronic iron deficiency anemia-status post transfusion with packed red blood cells, hemoglobin stable. Ultrasound of the liver showed normal spleen. 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 CT scan of the abdomen in October did not show any splenomegaly. Normocytic anemia may also be secondary to infection. Iron sucrose intravenously given. Hemoglobin stable. Upper GI bleeding-gastroenterology following, status post EGD 07/29/16, showed antral ulcer, continue Protonix, diet per GI. Stop NSAIDs. Thrombocytopenia-no obvious bleeding, status post platelet transfusion, transfuse as needed prior to surgery. 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 Thrombocytopenia stable. Sepsis secondary to C. difficile diarrhea- continue Flagyl, monitor. Sepsis based on fever, leukopenia with renal failure. Sepsis resolved, No leukocytosis , diarrhea improving, continue Flagyl. Switch to oral. Acute renal failure- improved, secondary to overdiuresis and diarrhea, creatinine back to normal, continue Aldactone. We'll give one dose of Lasix today. Liver cirrhosis, Hepatic encephalopathy with hyperammonemia-continue lactulose, ammonia is better, continue propranolol. Bilateral lower extremity edema-likely secondary to cirrhosis, increased Aldactone Hypertension-increase Aldactone, continue propranolol. Tibia-fibula fracture, right -orthopedics following, nonweightbearing for now. Surgery Tuesday or Tuesday, medically cleared for surgery tomorrow Liver cirrhosis secondary to hepatitis C with history of hepatic encephalopathy- continue rifaximin and lactulose. Hypokalemia-replaced Hypomagnesemia-replace DVT prophylaxis: SCDs, pharmacological prophylaxis contraindicated Berkley Allen MD Aug 02, 2016 09:32
[2016-08-02] MEDS ORDERED: FUROSEMIDE 40 MG TAB PO ONE (09:45)
[2016-08-02] MEDS ORDERED: PHYTONADIONE 10 MG/ML VIAL SQ ONE (09:45)
--- NOTE | 2016-08-02 10:15 | PD.ONC.PN ---
Subjective Subjective Remarks Afebrile overnight. Patient without overnight events. No bleeding. Continuing to complain of pain in leg. Objective Data Date Time Temp Pulse Resp B/P Pulse Ox O2 Delivery O2 Flow Rate FiO2 08/02/16 08:00 97.1 67 18 168/ 98 08/01/16 23:55 98.6 73 18 135/69 97 08/01/16 20:00 97.6 64 18 150/83 99 08/01/16 16:00 97.6 71 17 170/88 98 08/01/16 12:00 97.1 59 22 158/82 98 08/02/16 08/02/16 08/02/16 06:59 14:59 22:59 Intake Total 100 ml Output Total 400 ml Balance -300 ml Result Diagram: 08/02/1652908/02/16529 Laboratory Results Laboratory Tests Test 08/02/16 05:30 White Blood Count 4.9 TH/MM3 Red Blood Count 3.16 MIL/MM3 Hemoglobin 9.7 GM/DL Hematocrit 28.1 % Mean Corpuscular Volume 88.9 FL Mean Corpuscular Hemoglobin 30.7 PG Mean Corpuscular Hemoglobin 34.6 % Concent Red Cell Distribution Width 15.0 % Platelet Count 77 TH/MM3 Mean Platelet Volume 8.4 FL Neutrophils (%) (Auto) 58.7 % Lymphocytes (%) (Auto) 20.8 % Monocytes (%) (Auto) 12.4 % Eosinophils (%) (Auto) 6.7 % Basophils (%) (Auto) 1.4 % Neutrophils # (Auto) 2.9 TH/MM3 Lymphocytes # (Auto) 1.0 TH/MM3 Monocytes # (Auto) 0.6 TH/MM3 Eosinophils # (Auto) 0.3 TH/MM3 Basophils # (Auto) 0.1 TH/MM3 CBC Comment AUTO DIFF Differential Comment AUTO DIFF CONFIRMED Platelet Estimate LOW Platelet Morphology Comment NORMAL Prothrombin Time 16.4 SEC Prothromb Time International 1.5 RATIO Ratio Activated Partial 38.1 SEC Thromboplast Time Fibrinogen 109 mg/dL Sodium Level 143 MEQ/L Potassium Level 3.4 MEQ/L Chloride Level 114 MEQ/L Carbon Dioxide Level 20.7 MEQ/L Anion Gap 8 MEQ/L Blood Urea Nitrogen 5 MG/DL Creatinine 0.82 MG/DL Estimat Glomerular Filtration 73 ML/MIN Rate Random Glucose 81 MG/DL Calcium Level 8.2 MG/DL Ammonia 62 MCMOL/L Administered Medications Medications (Trade) Dose Ordered Sig/Osmin Route PRN Reason Start Time Stop Time Status Last Admin Dose Admin Oxycodone HCl (Roxicodone) 5 mg Q6H PRN PO pain 3-10 07/27/16 19:15 08/02/16 08:00 Propranolol HCl (Inderal) 20 mg TID PO 07/28/16 09:00 08/02/16 08:00 Rifaximin (Xifaxan) 550 mg BID PO 07/27/16 21:00 08/02/16 08:00 Trazodone HCl 50 mg 50 mg HS PO 07/27/16 21:00 08/01/16 19:18 Metronidazole (Flagyl 500 Mg Inj) 100 ml @ 100 mls/hr Q8H IV 07/28/16 04:00 08/02/16 04:56 IV Flush (NS Flush) 2 ml BID FLUSH 07/28/16 12:15 08/02/16 08:03 Pantoprazole Sodium (Protonix) 40 mg Q12HR PO 07/30/16 21:00 08/02/16 08:00 Sucralfate (Carafate Liq) 1 gm ACHS PO 07/30/16 11:00 08/01/16 19:17 Lactulose (Lactulose Liq) 30 ml BID PO 07/31/16 09:00 08/02/16 08:00 Spironolactone (Aldactone) 25 mg BID PO 08/01/16 21:00 08/02/16 08:00 Objective Remarks GENERAL: Middle aged female, sitting up in bed watching TV. SKIN: Warm and dry. HEAD: Normocephalic. EYES: No injection or drainage. NECK: Supple, trachea midline. CARDIOVASCULAR: +S1/S2. RESPIRATORY: Breath sounds equal bilaterally. No accessory muscle use. GASTROINTESTINAL: Abdomen soft, non-tender, nondistended. EXTREMITIES: extremities warm and well perfused. no mottling noted. NEUROLOGICAL: awake and alert, normal speech. Assessment/Plan Problem List: (1) Thrombocytopenia Status: Acute Plan: --08/01/16: platelet count remains around baseline. --recommend wendie-operative transfusion only --d/t liver dysfunction + splenomegaly (2) Iron deficiency anemia Status: Chronic Plan: --08/01/16: hgb stable. ~1500mg iron deficit --studies consistent with iron deficiency anemia (3) Fracture of distal end of tibia with fibula Status: Chronic Plan: -- Awaiting hardware replacement surgery per ortho (4) Gastric ulcer Status: Acute Plan: -- Panendoscopy on 07/28/16 showed 3-7mm ulcer in gastric antrum. No bleeding. -- On carafate, PPI -- GI following (5) Coagulopathy Status: Acute Plan: --monitor --chronic d/t liver disease (6) Hepatitis C Status: Chronic Plan: --GI following Assessment Ms. Trujillo is a 55 y/o female who was admitted for symptomatic anemia. She has a PMH of alcohol abuse, Hep C and pancytopenia. She is awaiting sx to have hardware replaced from a tib-fib fracture in Oct 2015. Plan 1. monitor CBC 2. recommend wendie-operative transfusions. 3. hematology will sign off. Please call or reconsult if needed. Attending Statement The exam, history, and the medical decision-making described in the above note were completed with the assistance of the mid-level provider. I reviewed and agree with the findings presented. I attest that I had a [id number] encounter with the patient on the same day, and personally performed and documented my assessment and findings in the medical record. Pt seen and examined. Anemia and thrombocytopenia chronic from underlying liver disease. Anticipate intraoperative transfusion platelets if bleeding. No bleeding at present. Discuss follow up with heme onc when DC to review CBC and determine if additional iron needed. We'll sign off, reconsult as needed. Sheyla Núñez Aug 02, 2016 10:15 Aleksandra Murrell MD Aug 02, 2016 11:56
[2016-08-02 12:00] VITALS: BP 162/77; PULSE 68; RESP 18; TEMP 97.2; O2SAT 99
[2016-08-02 16:03] VITALS: BP 142/72; PULSE 64; RESP 18; TEMP 97.1; O2SAT 100
[2016-08-02 20:00] VITALS: BP 137/73; PULSE 70; RESP 21; TEMP 97.4; O2SAT 97
[2016-08-02] MEDS: traZODone HCL 50 MG TAB PO SCH (20:22)
[2016-08-03] VITALS (10 sets, daily range): BP systolic 108–183; BP diastolic 65–91; PULSE 65–71; RESP 17–21; TEMP 96.3–98.8; O2SAT 93–97
[2016-08-03] MEDS: metroNIDAZOLE 500 MG INJ 100 ML IV SCH ×3 (04:30→22:14)
[2016-08-03] MEDS: SUCRALFATE 1 GM/10 ML CUP PO SCH ×4 (05:54→21:00)
[2016-08-03 06:11] LABS: AUTOMATED NEUTROPHIL # 2.2 TH/MM3 (1.8-7.7); BASOPHIL % 0.8 % (0.0-2.0); EOSINOPHIL # 0.2 TH/MM3 (0-0.4); EOSINOPHIL % 5.2 % (0.0-4.0); HEMATOCRIT 27.2 % (35.0-46.0); LYMPHOCYTE # 1.1 TH/MM3 (1.0-4.8); MEAN CORPUSCULAR HEMOGLOBIN 31.2 PG (27.0-34.0); MEAN CORPUSCULAR HGB CONC 34.6 % (32.0-36.0); MONO % 14.4 % (0.0-8.0); NEUT % 52.6 % (16.0-70.0); PLATELET COUNT 77 TH/MM3 (150-450); RED BLOOD COUNT 3.02 MIL/MM3 (4.00-5.30); RED CELL DISTRIBUTION WIDTH 15.4 % (11.6-17.2); WHITE BLOOD COUNT 4.2 TH/MM3 (4.0-11.0)
[2016-08-03 06:14] LABS: HEMO FLAGS AUTO DIFF
[2016-08-03 06:17] LABS: APTT (PATIENT) 35.9 SEC (24.3-30.1); INTERNATIONAL NORMALIZED RATIO 1.5 RATIO; PROTHROMBIN TIME - PATIENT 16.7 SEC (9.8-11.6)
[2016-08-03 06:39] LABS: BICARBONATE 24.2 MEQ/L (21.0-32.0); MAGNESIUM 1.1 MG/DL (1.5-2.5); POTASSIUM 3.2 MEQ/L (3.5-5.1)
[2016-08-03] MEDS ORDERED: SODIUM CHLOR 0.9% 250 ML INJ 250 ML IV ONE (07:00)
--- NOTE | 2016-08-03 07:08 | PD.ORT.PN ---
Subjective Subjective Remarks s/p nonunion right distal tibia fx patietn doing well. no complaints. resting comfortably Objective Vitals Vital Signs Date Time Temp Pulse Resp B/P Pulse Ox O2 Delivery O2 Flow Rate FiO2 08/03/16 04:00 98.8 65 21 134/65 97 08/03/16 00:00 98.4 71 20 153/74 97 08/02/16 20:00 97.4 70 21 137/73 97 08/02/16 16:03 97.1 64 18 142/72 100 08/02/16 12:00 97.2 68 18 162/77 99 08/02/16 08:00 97.1 67 18 168/ 98 I/O 08/02/16 08/02/16 08/02/16 08/03/16 08/03/16 08/03/16 06:59 14:59 22:59 06:59 14:59 22:59 Intake Total 100 ml 400 ml 440 ml 440 ml Output Total 400 ml 600 ml 4400 ml Balance -300 ml 400 ml -160 ml -3960 ml Intake Oral 0 ml 400 ml 240 ml 240 ml IV Total 100 ml 200 ml 200 ml Output Urine Total 400 ml 600 ml 4400 ml # Voids 6 # Bowel Movements 1 1 0 0 Result Diagram: 08/03/16 0455 08/03/16 0455 Other Results Laboratory Tests Test 08/03/16 04:55 Prothrombin Time 16.7 SEC (9.8-11.6) Prothromb Time International 1.5 RATIO Ratio Objective Remarks RLE: good PROM with minimal pain. NVI distally wtih good cap refill. 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
[2016-08-03] MEDS: PROPRANOLOL HCL 20 MG TAB PO SCH ×2 (07:54→13:09)
[2016-08-03] MEDS: RIFAXIMIN 550 MG TAB PO SCH ×2 (07:54→22:15)
[2016-08-03] MEDS: SODIUM CHLORIDE 0.9% FLUSH 5 ML FLUSH FLUSH SCH (07:55)
[2016-08-03] MEDS: LACTULOSE SYRUP 20 GM/30 ML CUP PO SCH ×2 (07:55→22:15)
[2016-08-03] MEDS: SPIRONOLACTONE 25 MG TAB PO SCH ×2 (07:58→22:15)
[2016-08-03] MEDS: PANTOPRAZOLE SOD 40 MG DELAYED RELEASE TAB PO SCH ×2 (07:59→22:14)
[2016-08-03] MEDS ORDERED: LACTATED RINGER'S 1000 ML IV SCH (08:00)
[2016-08-03 08:47] LABS: PLATELET ESTIMATE SMEAR LOW (NORMAL); PLATELET MORPHOLOGY NORMAL (NORMAL); SCAN/DIFF AUTO DIFF CONFIRMED
[2016-08-03] MEDS ORDERED: LACTATED RINGER'S 1000 ML INJ 1,000 ML IV ONE (11:39)
[2016-08-03] MEDS ORDERED: PROPOFOL 200 MG/20 ML AMP IV ONE (11:39)
[2016-08-03] MEDS ORDERED: GENTAMICIN SULFATE 80 MG/2 ML VIAL ONE (14:19)
[2016-08-03] MEDS ORDERED: VANCOMYCIN HCL 1000 MG VIAL ONE (14:19)
[2016-08-03] MEDS ORDERED: ceFAZolin INJ 1,000 MG VIAL ONE (14:19)
[2016-08-03 16:01] LABS: HEMATOCRIT 24.4 % (35.0-46.0); MEAN CELL VOLUME 89.9 FL (80.0-100.0); MEAN CORPUSCULAR HEMOGLOBIN 30.6 PG (27.0-34.0); PLATELET COUNT 100 TH/MM3 (150-450); RED BLOOD COUNT 2.71 MIL/MM3 (4.00-5.30); RED CELL DISTRIBUTION WIDTH 15.4 % (11.6-17.2); REVIEW FLAG FINAL; WHITE BLOOD COUNT 4.2 TH/MM3 (4.0-11.0)
[2016-08-03] MEDS ORDERED: BUPIVACAINE/EPINEPHRINE 0.25% PF 30 ML VIAL ONE (16:06)
--- NOTE | 2016-08-03 16:06 | HHI.PR ---
Subjective Remarks Late entry For surgery today, for transfusion of platelets. No bleeding. Afebrile. Diarrhea improved. Objective Vitals Vital Signs Date Time Temp Pulse Resp B/P Pulse Ox O2 Delivery O2 Flow Rate FiO2 08/03/16 14:15 97.8 66 17 183/91 96 08/03/16 12:30 97.8 67 18 143/75 93 08/03/16 12:00 98.2 67 18 143/75 93 08/03/16 09:20 98.5 70 17 122/69 95 08/03/16 08:55 98.0 67 17 140/70 97 08/03/16 08:00 98.0 67 18 140/70 97 08/03/16 04:00 98.8 65 21 134/65 97 08/03/16 00:00 98.4 71 20 153/74 97 08/02/16 20:00 97.4 70 21 137/73 97 I/O 08/02/16 08/02/16 08/02/16 08/03/16 08/03/16 08/03/16 07:00 15:00 23:00 07:00 15:00 23:00 Intake Total 100 ml 400 ml 440 ml 440 ml 244 ml Output Total 400 ml 600 ml 4400 ml 400 ml Balance -300 ml 400 ml -160 ml -3960 ml -156 ml Intake Oral 0 ml 400 ml 240 ml 240 ml IV Total 100 ml 200 ml 200 ml Platelets 244 ml Output Urine Total 400 ml 600 ml 4400 ml 400 ml # Voids 6 4 # Bowel Movements 1 1 0 0 0 Result Diagram: 08/03/16 1512 08/03/16 0455 Objective Remarks Not in distress, well-nourished, looks stated age PERRL, moderately pale conjunctiva without injection, anicteric Nose without bleeding, airway patent Supple neck, no masses or thyromegaly, trachea midline Normal rate and regular rhythm, no murmurs gallops or rubs appreciated. Clear to auscultation and symmetric bilaterally, normal respiratory effort. Normal bowel sounds, soft, non-tender, nondistended, no guarding. Extremities without clubbing, cyanosis, 2+ edema. Right lower extremity dressings in place. No rash of generalized distribution. Skin is warm and dry. AAO x3, no cranial nerve deficits, moves all 4 extremities, no focal neurologic deficits, mild asterixis present Normal mood, appropriate affect Procedures EGD: Showed gastric antral ulcer A/P Problem List: (1) Hepatitis C ICD Code: B19.20 Status: Chronic (2) Cirrhosis of liver ICD Code: K74.60 Status: Chronic (3) Acute renal failure ICD Code: N17.9 Status: Acute (4) Fracture of distal end of tibia with fibula ICD Code: S82.309A Status: Chronic (5) Anemia ICD Code: D64.9 Status: Acute (6) Hypokalemia ICD Code: E87.6 Status: Acute (7) Thrombocytopenia ICD Code: D69.6 Status: Acute Assessment and Plan Symptomatic anemia in a 55-year-old male Symptomatic chronic iron deficiency anemia-status post transfusion with packed red blood cells, hemoglobin stable. Ultrasound of the liver showed normal spleen. 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 CT scan of the abdomen in October did not show any splenomegaly. Normocytic anemia may also be secondary to infection. Iron sucrose intravenously given. Hemoglobin stable. Upper GI bleeding-gastroenterology following, status post EGD 07/29/16, showed antral ulcer, continue Protonix, diet per GI. Stop NSAIDs. Thrombocytopenia-no obvious bleeding, status post platelet transfusion, transfuse as needed prior to surgery. 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 Thrombocytopenia stable. For transfusion prior to surgery. Sepsis secondary to C. difficile diarrhea- continue Flagyl, monitor. Sepsis based on fever, leukopenia with renal failure. Sepsis resolved, No leukocytosis , diarrhea improving, continue Flagyl. Switch to oral. Acute renal failure- improved, secondary to overdiuresis and diarrhea, creatinine back to normal, continue Aldactone. We'll give one dose of Lasix today. Liver cirrhosis, Hepatic encephalopathy with hyperammonemia-continue lactulose, ammonia is better, continue propranolol. Bilateral lower extremity edema-likely secondary to cirrhosis, increased Aldactone Hypertension-increase Aldactone, continue propranolol. Tibia-fibula fracture, right -orthopedics following, nonweightbearing for now. Surgery today, Liver cirrhosis secondary to hepatitis C with history of hepatic encephalopathy- continue rifaximin and lactulose. Hypokalemia-replaced Hypomagnesemia-replace DVT prophylaxis: SCDs, pharmacological prophylaxis contraindicated Will likely need rehabilitation. Berkley Allen MD Aug 03, 2016 16:06
[2016-08-03] MEDS ORDERED: fentaNYL CITRATE 250 MCG/5 ML AMP ONE (17:21)
[2016-08-03] MEDS ORDERED: MISCELLANEOUS PHARMACY INFORMATION XX ONE (17:45)
[2016-08-03] MEDS ORDERED: MORPHINE SULFATE 4 MG/ML INJ IV PUSH PRN (17:45)
[2016-08-03] MEDS ORDERED: MISCELLANEOUS NURSING INFORMATION XX PRN (17:45)
[2016-08-03] MEDS ORDERED: SODIUM CHLORIDE 0.9% FLUSH 5 ML FLUSH IVF PRN (17:45)
[2016-08-03] MEDS ORDERED: NALOXONE HCL 0.4 MG/ML AMP IV PRN (17:45)
[2016-08-03] MEDS ORDERED: ACETAMINOPHEN/HYDROcodone 325 MG/10 MG TAB PO PRN (17:45)
[2016-08-03] MEDS ORDERED: Post-op Orders (for Pharmacy) MISC XX ONE (17:45)
[2016-08-03] MEDS ORDERED: diphenhydrAMINE HCL 25 MG CAP PO PRN (17:45)
[2016-08-03] MEDS ORDERED: ONDANSETRON HCL 4 MG/2 ML VIAL IVP PRN (17:45)
[2016-08-03] MEDS ORDERED: *RESP: ALBUTEROL 2.5 MG/3 ML NEB (PRN) PERIprocedural Use ONLY NEB ONE (17:48)
[2016-08-03] MEDS ORDERED: LABETALOL HCL 100 MG/20 ML VIAL ONE ×2 (17:52→18:28)
[2016-08-03] MEDS ORDERED: DO NOT ADM ANY ANTICOAGULANT DRUGS XX PRN (17:53)
--- NOTE | 2016-08-03 17:54 | RADRPT ---
EXAM DATE/TIME: 08/03/2016 16:54 [facility] COMPARISON: ANKLE RIGHT LIMITED (AP&LAT), October 13, 2015, 19:55. INDICATIONS : Revison of right ankle Orif. MEDICAL HISTORY : Unavailable. SURGICAL HISTORY : Unavailable. ENCOUNTER: Initial ACUITY: 1 day PAIN SCORE: Non-responsive. LOCATION: Right Ankle. FINDINGS: 2 views of the right ankle demonstrates postsurgical changes following open reduction and internal fi xation of displaced distal tibial and fibular fractures. Fixation plates have been placed across the fractures. Displacement has been reduced and there is satisfactory anatomic alignment. Ankle mortise is well-maintained. CONCLUSION: Status post ORIF of distal right tibial and fibular fractures resulting in satisfactory anatomic alig nment. Edis Plascencia MD on August 03, 2016 at 17:50 Board Certified Radiologist. This report was verified electronically.
[2016-08-03] MEDS ORDERED: *morphine SULFATE 8 MG/ML PERIprocedure ONLY ONE ×2 (18:24→18:37)
[2016-08-03] MEDS ORDERED: ENALAPRILAT 1.25 MG/ML VIAL ONE (18:29)
[2016-08-03] MEDS: LACTATED RINGER'S 1000 ML INJ 1,000 ML IV SCH (19:00)
[2016-08-03] MEDS: MORPHINE SULFATE 30 MG/30 ML PCA IV SCH (19:51)
[2016-08-03] MEDS: SODIUM CHLORIDE 0.9% FLUSH 5 ML FLUSH IVF SCH (21:00)
[2016-08-03] MEDS: PCA - TOTAL MG MORPHINE DELIVERED PER SHIFT SCH (22:00)
[2016-08-03] MEDS: ceFAZolin 2 GM PREMIX 50 ML IV SCH (22:15)
[2016-08-03] MEDS: traZODone HCL 50 MG TAB PO SCH (22:15)
[2016-08-04] VITALS (9 sets, daily range): BP systolic 93–114; BP diastolic 47–67; PULSE 70–102; RESP 18–20; TEMP 98.1–100.4; O2SAT 93–97
[2016-08-04] MEDS: metroNIDAZOLE 500 MG INJ 100 ML IV SCH (03:36)
[2016-08-04] MEDS: VANCOMYCIN INJ 1,000 MG in SODIUM CHLOR 0.9% 250 ML INJ 250 ML IV SCH ×3 (04:51→21:15)
[2016-08-04] MEDS: ceFAZolin 2 GM PREMIX 50 ML IV SCH ×3 (05:29→21:16)
[2016-08-04] MEDS: SUCRALFATE 1 GM/10 ML CUP PO SCH ×4 (05:29→21:14)
[2016-08-04] MEDS: LACTATED RINGER'S 1000 ML INJ 1,000 ML IV SCH (05:30)
[2016-08-04 05:54] LABS: INTERNATIONAL NORMALIZED RATIO 1.5 RATIO; PROTHROMBIN TIME - PATIENT 16.8 SEC (9.8-11.6)
[2016-08-04 05:55] LABS: HEMATOCRIT 25.9 % (35.0-46.0); MEAN CELL VOLUME 90.4 FL (80.0-100.0); MEAN CORPUSCULAR HGB CONC 34.3 % (32.0-36.0); PLATELET COUNT 163 TH/MM3 (150-450); RED BLOOD COUNT 2.86 MIL/MM3 (4.00-5.30); RED CELL DISTRIBUTION WIDTH 15.7 % (11.6-17.2); REVIEW FLAG FINAL
[2016-08-04] MEDS: PROPRANOLOL HCL 20 MG TAB PO SCH ×3 (08:47→17:20)
[2016-08-04] MEDS: FOLIC ACID 1 MG TAB PO SCH (08:52)
[2016-08-04] MEDS: RIFAXIMIN 550 MG TAB PO SCH ×2 (08:52→21:14)
[2016-08-04] MEDS: CALCIUM/VITAMIN D 250 MG/125 U TAB PO SCH ×3 (08:52→17:20)
[2016-08-04] MEDS: SPIRONOLACTONE 25 MG TAB PO SCH ×2 (08:52→21:14)
[2016-08-04] MEDS: LACTULOSE SYRUP 20 GM/30 ML CUP PO SCH ×2 (08:52→21:14)
[2016-08-04] MEDS: PANTOPRAZOLE SOD 40 MG DELAYED RELEASE TAB PO SCH ×2 (08:52→21:14)
[2016-08-04] MEDS: SODIUM CHLORIDE 0.9% FLUSH 5 ML FLUSH IVF SCH ×2 (08:53→21:00)
--- NOTE | 2016-08-04 09:42 | PD.ORT.PN ---
Subjective Subjective Remarks Mild confusion. Pain controlled. No new complaints Objective Vitals Vital Signs Date Time Temp Pulse Resp B/P Pulse Ox O2 Delivery O2 Flow Rate FiO2 08/04/16 08:00 99.0 75 18 99/58 93 08/04/16 03:52 98.1 76 20 114/67 93 08/04/16 00:02 97 Nasal Cannula 21 08/03/16 23:52 96.9 70 18 108/74 96 08/03/16 22:10 16 08/03/16 22:00 16 08/03/16 20:00 96.3 66 18 154/79 97 08/03/16 19:51 15 08/03/16 19:25 97.7 68 15 144/79 97 Nasal Cannula 3 08/03/16 19:10 66 15 122/70 96 Nasal Cannula 3 08/03/16 18:55 67 15 111/69 99 Nasal Cannula 3 08/03/16 18:40 66 15 129/74 97 Nasal Cannula 3 08/03/16 18:25 68 15 178/101 95 Nasal Cannula 4 08/03/16 18:15 80 13 184/106 96 Simple Mask 6 08/03/16 18:05 76 13 181/102 94 Simple Mask 6 08/03/16 17:55 92 Simple Mask 6 08/03/16 17:50 88 12 187/100 94 Simple Mask 6 08/03/16 17:46 97.6 84 11 193/106 90 Nasal Cannula 4 08/03/16 14:15 97.8 66 17 183/91 96 08/03/16 12:30 97.8 67 18 143/75 93 08/03/16 12:00 98.2 67 18 143/75 93 I/O 08/03/16 08/03/16 08/03/16 08/04/16 08/04/16 08/04/16 07:00 15:00 23:00 07:00 15:00 23:00 Intake Total 440 ml 519 ml 1920 ml 718 ml Output Total 4400 ml 400 ml 725 ml 225 ml Balance -3960 ml 119 ml 1195 ml 493 ml Intake Oral 240 ml 0 ml 60 ml IV Total 200 ml 520 ml 658 ml Platelets 519 ml Other 1400 ml Output Urine Total 4400 ml 400 ml 225 ml 225 ml Estimated Blood Loss 500 ml # Voids 4 # Bowel Movements 0 0 0 0 Result Diagram: 08/04/16 0517 08/03/16 0455 Other Results Laboratory Tests Test 08/04/16 05:17 Prothrombin Time 16.8 SEC (9.8-11.6) Prothromb Time International 1.5 RATIO Ratio Imaging Last 72 hours Impressions Ankle X-Ray 08/03/16 0000 Signed Impressions: Service Date/Time: Wednesday, August 03, 2016 16:54 - CONCLUSION: Status post ORIF of distal right tibial and fibular fractures resulting in satisfactory anatomic alignment. Edis Plascencia MD Objective Remarks Right lower extremity: Iliac crest bone graft site with mild drainage. Dressing intact. No pain with hip or knee range of motion. Splint intact over ankle clean dry and intact. distally neurovascularly intact Assessment & Plan Assessment and Plan 1) Right Distal Tibia nonunion POD 1 with removal of hardware, open reduction internal fixation, stem cells and iliac crest bone graft Strict nonweightbearing right lower extremity Elevation Maintain splint at all times Begin daily dressing changes of iliac crest bone graft site beginning POD 2 with Xeroform and Primapore Incentive spirometry Vero [facility] and at this point does not have adequate care outside of the hospital. Unfortunately placement is going to be difficult KIRK ROCA PA-C Aug 04, 2016 09:42
--- NOTE | 2016-08-04 10:55 | HHI.PR ---
Subjective Remarks Follow-up for diarrhea and right knee fracture Diarrhea has improved, almost resolved, in fact no bowel movements today. No abdominal pain. Afebrile, mildly short of breath and wheezing. Pain is moderately controlled with narcotics both oral and IV. Objective Vitals Vital Signs Date Time Temp Pulse Resp B/P Pulse Ox O2 Delivery O2 Flow Rate FiO2 08/04/16 08:00 99.0 75 18 99/58 93 08/04/16 03:52 98.1 76 20 114/67 93 08/04/16 00:02 97 Nasal Cannula 21 08/03/16 23:52 96.9 70 18 108/74 96 08/03/16 22:10 16 08/03/16 22:00 16 08/03/16 20:00 96.3 66 18 154/79 97 08/03/16 19:51 15 08/03/16 19:25 97.7 68 15 144/79 97 Nasal Cannula 3 08/03/16 19:10 66 15 122/70 96 Nasal Cannula 3 08/03/16 18:55 67 15 111/69 99 Nasal Cannula 3 08/03/16 18:40 66 15 129/74 97 Nasal Cannula 3 08/03/16 18:25 68 15 178/101 95 Nasal Cannula 4 08/03/16 18:15 80 13 184/106 96 Simple Mask 6 08/03/16 18:05 76 13 181/102 94 Simple Mask 6 08/03/16 17:55 92 Simple Mask 6 08/03/16 17:50 88 12 187/100 94 Simple Mask 6 08/03/16 17:46 97.6 84 11 193/106 90 Nasal Cannula 4 08/03/16 14:15 97.8 66 17 183/91 96 08/03/16 12:30 97.8 67 18 143/75 93 08/03/16 12:00 98.2 67 18 143/75 93 I/O 08/03/16 08/03/16 08/03/16 08/04/16 08/04/16 08/04/16 06:59 14:59 22:59 06:59 14:59 22:59 Intake Total 440 ml 519 ml 1920 ml 718 ml Output Total 4400 ml 400 ml 725 ml 225 ml Balance -3960 ml 119 ml 1195 ml 493 ml Intake Oral 240 ml 0 ml 60 ml IV Total 200 ml 520 ml 658 ml Platelets 519 ml Other 1400 ml Output Urine Total 4400 ml 400 ml 225 ml 225 ml Estimated Blood Loss 500 ml # Voids 4 # Bowel Movements 0 0 0 0 Result Diagram: 08/04/16 0517 08/03/16 0455 Objective Remarks Not in distress, well-nourished, looks stated age PERRL, moderately pale conjunctiva without injection, anicteric Nose without bleeding, airway patent Supple neck, no masses or thyromegaly, trachea midline Normal rate and regular rhythm, no murmurs gallops or rubs appreciated. Decreased breath sounds, occasional wheezing. Normal bowel sounds, soft, non-tender, nondistended, no guarding. Extremities without clubbing, cyanosis,1- 2+ edema. Right lower extremity dressings in place. No rash of generalized distribution. Skin is warm and dry. AAO x3, no cranial nerve deficits, moves all 4 extremities, no focal neurologic deficits, no asterixis Normal mood, appropriate affect Procedures EGD: Showed gastric antral ulcer A/P Problem List: (1) Hepatitis C ICD Code: B19.20 Status: Chronic (2) Cirrhosis of liver ICD Code: K74.60 Status: Chronic (3) Acute renal failure ICD Code: N17.9 Status: Acute (4) Fracture of distal end of tibia with fibula ICD Code: S82.309A Status: Chronic (5) Anemia ICD Code: D64.9 Status: Acute (6) Hypokalemia ICD Code: E87.6 Status: Acute (7) Thrombocytopenia ICD Code: D69.6 Status: Acute Assessment and Plan Symptomatic anemia in a 55-year-old male Symptomatic chronic iron deficiency anemia-status post transfusion with packed red blood cells, hemoglobin stable. Ultrasound of the liver showed normal spleen. 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 CT scan of the abdomen in October did not show any splenomegaly. Normocytic anemia may also be secondary to infection. Iron sucrose intravenously given. Hemoglobin stable. Upper GI bleeding-gastroenterology following, status post EGD 07/29/16, showed antral ulcer, continue Protonix, diet per GI. Stop NSAIDs. Thrombocytopenia-no obvious bleeding, status post platelet transfusion, transfuse as needed prior to surgery. 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 Thrombocytopenia stable. Status post pacer transfusion before surgery yesterday. Sepsis secondary to C. difficile diarrhea- continue Flagyl, switch to oral, monitor. Sepsis based on fever, leukopenia with renal failure. Sepsis resolved , No leukocytosis, diarrhea resolved. Acute renal failure- improved, secondary to overdiuresis and diarrhea, creatinine back to normal, continue Aldactone. Status post Lasix, recheck BMP today. Liver cirrhosis, Hepatic encephalopathy with hyperammonemia-continue lactulose, ammonia is better, continue propranolol. Bilateral lower extremity edema-likely secondary to cirrhosis, continue Aldactone. Hypertension- continue propranolol and Aldactone. Tibia-fibula fracture, right -orthopedics following, nonweightbearing for now. Status post ORIF revision 08/03/16. Nonweightbearing, will need rehabilitation. Continue oral and intravenous narcotics as needed for pain. Liver cirrhosis secondary to hepatitis C with history of hepatic encephalopathy- continue rifaximin and lactulose. Mild shortness of breath with wheezing-DuoNeb's [id number] and as needed, check chest x-ray and BNP. Check BMP today. Hypokalemia-replaced Hypomagnesemia-replace DVT prophylaxis: SCDs, pharmacological prophylaxis contraindicated Discussed with RN. Will likely need rehabilitation, will try to discharged to [place] [facility]. Discussed with orthopedics. Discharge Planning Discharge today if okay with Ortho and medically cleared. Berkley Allen MD Aug 04, 2016 10:55
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
[2016-08-04 11:30] LABS: MAGNESIUM 1.1 MG/DL (1.5-2.5); POTASSIUM 3.5 MEQ/L (3.5-5.1)
[2016-08-04] MEDS: RESP: ALBUTEROL 2.5 MG/IPRATROPIUM 0.5 MG NEB (SCH) NEB ×2 (12:00→21:14)
[2016-08-04] MEDS: metroNIDAZOLE 500 MG TAB PO SCH ×2 (13:04→21:14)
[2016-08-04] MEDS: PCA - TOTAL MG MORPHINE DELIVERED PER SHIFT SCH ×2 (14:00→22:00)
--- NOTE | 2016-08-04 14:52 | RADRPT ---
EXAM DATE/TIME: 08/04/2016 14:39 [facility] COMPARISON: CHEST SINGLE AP, March 31, 2016, 21:38. INDICATIONS : Short of breath. MEDICAL HISTORY : None. SURGICAL HISTORY : None. ENCOUNTER: Initial ACUITY: 2 days PAIN SCORE: 0/10 LOCATION: Bilateral chest FINDINGS: The lungs are hypoaerated. There is focal airspace disease in the right upper lobe and left base. The re are no consolidating infiltrates. Heart and mediastinal structures are stable. Osseous structures remain intact. CONCLUSION: Bilateral airspace disease characteristic of atelectasis. No evidence of consolidating infiltrate. No evidence of significant congestion. Edis Plascencia MD on August 04, 2016 at 14:49 Board Certified Radiologist. This report was verified electronically.
[2016-08-04] MEDS: traZODone HCL 50 MG TAB PO SCH (21:14)
[2016-08-04] MEDS: MORPHINE SULFATE 30 MG/30 ML PCA IV SCH (23:11)
[2016-08-05] VITALS (7 sets, daily range): BP systolic 98–105; BP diastolic 60–70; PULSE 69–76; RESP 17–20; TEMP 96.4–98.6; O2SAT 96–98
[2016-08-05] MEDS: RESP: ALBUTEROL 2.5 MG/IPRATROPIUM 0.5 MG NEB (SCH) NEB ×2 (03:54→22:52)
[2016-08-05 04:58] LABS: BICARBONATE 26.4 MEQ/L (21.0-32.0); POTASSIUM 3.4 MEQ/L (3.5-5.1)
[2016-08-05] MEDS: ceFAZolin 2 GM PREMIX 50 ML IV SCH ×2 (05:08→12:39)
[2016-08-05] MEDS: SUCRALFATE 1 GM/10 ML CUP PO SCH ×4 (05:43→20:50)
[2016-08-05] MEDS: metroNIDAZOLE 500 MG TAB PO SCH ×3 (05:43→20:51)
[2016-08-05] MEDS: PCA - TOTAL MG MORPHINE DELIVERED PER SHIFT SCH (06:00)
[2016-08-05] MEDS: RESP: ALBUTEROL 2.5 MG/IPRATROPIUM 0.5 MG NEB (PRN) NEB ×2 (08:19→15:51)
[2016-08-05] MEDS: RIFAXIMIN 550 MG TAB PO SCH ×2 (08:34→20:51)
[2016-08-05] MEDS: PANTOPRAZOLE SOD 40 MG DELAYED RELEASE TAB PO SCH ×2 (08:34→20:50)
[2016-08-05] MEDS: FOLIC ACID 1 MG TAB PO SCH (08:34)
[2016-08-05] MEDS: LACTULOSE SYRUP 20 GM/30 ML CUP PO SCH (08:34)
[2016-08-05] MEDS: VANCOMYCIN INJ 1,000 MG in SODIUM CHLOR 0.9% 250 ML INJ 250 ML IV SCH (08:34)
[2016-08-05] MEDS: PROPRANOLOL HCL 20 MG TAB PO SCH ×3 (08:34→15:51)
[2016-08-05] MEDS: SPIRONOLACTONE 25 MG TAB PO SCH ×2 (08:34→20:50)
[2016-08-05] MEDS: CALCIUM/VITAMIN D 250 MG/125 U TAB PO SCH ×3 (08:34→15:51)
[2016-08-05] MEDS: SODIUM CHLORIDE 0.9% FLUSH 5 ML FLUSH IVF SCH ×2 (08:35→20:51)
[2016-08-05] MEDS: ACETAMINOPHEN/HYDROcodone 325 MG/10 MG TAB PO PRN ×3 (12:37→22:38)
--- NOTE | 2016-08-05 16:36 | HHI.PR ---
Subjective Remarks Patient complains of moderate pain in the right hip but states it is currently controlled. She continues to have loose stools. She continues to complain of mild dyspnea at rest. She has had low urine output of only about 200 cc overnight as per her nurse. She was straight cathetered last night however the nurse is unable to tell me how much volume was gotten out each time. The patient denies any lower abdominal discomfort or any sense of incomplete voiding. Objective Vitals Vital Signs Date Time Temp Pulse Resp B/P Pulse Ox O2 Delivery O2 Flow Rate FiO2 08/05/16 16:00 96.4 70 17 98/65 96 100/60 08/05/16 12:00 98.2 76 18 105/68 98 08/05/16 08:21 97 Nasal Cannula 3.00 08/05/16 08:00 98.6 72 17 103/70 97 08/05/16 06:33 18 08/05/16 06:00 18 08/05/16 01:00 16 08/04/16 23:52 99.4 70 18 96/52 97 08/04/16 23:11 18 08/04/16 22:00 18 08/04/16 21:30 96 Nasal Cannula 3.50 08/04/16 21:11 18 08/04/16 19:52 100.4 102 18 107/47 93 I/O 08/04/16 08/04/16 08/04/16 08/05/16 08/05/16 08/05/16 07:00 15:00 23:00 07:00 15:00 23:00 Intake Total 718 ml 1606 ml 924 ml 916 ml 240 ml Output Total 225 ml 300 ml 200 ml Balance 493 ml 1306 ml 924 ml 716 ml 240 ml Intake Oral 60 ml 480 ml 60 ml 240 ml 240 ml IV Total 658 ml 1126 ml 864 ml 676 ml Output Urine Total 225 ml 300 ml 200 ml # Voids 0 1 # Bowel Movements 0 0 0 2 4 Result Diagram: 08/04/1617 08/05/16 0401 Objective Remarks GENERAL: Well-nourished, well-developed pleasant middle-age female patient in no apparent distress. SKIN: Warm and dry. HEAD: Normocephalic. EYES: No scleral icterus. No injection or drainage. NECK: Supple, trachea midline. No JVD or lymphadenopathy. CARDIOVASCULAR: Regular rate and rhythm without murmurs, gallops, or rubs. RESPIRATORY: Breath sounds equal and clear to auscultation bilaterally. Nonlabored breathing on 2 L nasal cannula. GASTROINTESTINAL: Bowel sounds are present. Abdomen soft, non-tender, nondistended. EXTREMITIES: Trace pedal edema. NEUROLOGICAL: Awake, alert, and oriented x 3. Non-focal. 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 status post transfusion with packed red blood cells, hemoglobin is now stable. S/p EGD 07/29/16, showed single non bleeding ulcer 3-7 mm in size gastric antrum. Continue Protonix, diet per GI. Iron sucrose intravenously given. Hemoglobin stable. Thrombocytopenia-no obvious bleeding- Likely secondary to hypersplenism per hematology. s/p transfusion prior to surgery. Thrombocytopenia stable. Status post pacer transfusion before surgery yesterday. Right tibia-fibula nonunion, present on admission, Status post ORIF revision 08/03/[address] Camacho. Nonweightbearing, will need rehabilitation. Continue oral opioids as needed for pain. C. difficile diarrhea- improving. continue oral Flagyl, switch to oral, monitor. VIMAL - was improved, now worsened again today, with decreased UOP. Encourage PO fluids. Start NS at 125 ml/hr. BMP in a.m. Hypokalemia due to GI losses - continue to repelet orally. repeat BMP in a.m. Liver cirrhosis, Hepatic encephalopathy with hyperammonemia-hold lactulose due to diarrhea. monitor ammonia and mental status. Bilateral lower extremity edema-likely secondary to cirrhosis, imrpoving. Hypertension- continue propranolol and Aldactone. Liver cirrhosis secondary to hepatitis C with history of hepatic encephalopathy- continue rifaximin, hold lactulose. Mild shortness of breath with wheezing- cxr 08/04 with atelectasis. continue duonebs and O2 prn. symptoms in part due to anemia. Hypokalemia-replaced Hypomagnesemia-replace DVT prophylaxis: SCDs, pharmacological prophylaxis contraindicated Discharge Planning Needs SNF, not yet ready for discharge. Jen Bautista MD Aug 05, 2016 16:36 DVT prophylaxis: SCDs, pharmacological prophylaxis contraindicated Jen Bautista MD Aug 05, 2016 16:36
[2016-08-05] MEDS: SODIUM CHLOR 0.9% 1000 ML INJ 1,000 ML IV SCH (17:42)
[2016-08-05] MEDS: traZODone HCL 50 MG TAB PO SCH (20:50)
[2016-08-06] VITALS (12 sets, daily range): BP systolic 90–128; BP diastolic 50–68; PULSE 62–77; RESP 14–20; TEMP 96.2–98.6; O2SAT 95–98
[2016-08-06] MEDS: SODIUM CHLOR 0.9% 1000 ML INJ 1,000 ML IV SCH ×3 (03:09→16:07)
[2016-08-06] MEDS: RESP: ALBUTEROL 2.5 MG/IPRATROPIUM 0.5 MG NEB (SCH) NEB ×3 (04:10→20:43)
[2016-08-06 04:43] LABS: AUTOMATED NEUTROPHIL # 4.9 TH/MM3 (1.8-7.7); BASOPHIL % 0.7 % (0.0-2.0); EOSINOPHIL # 0.3 TH/MM3 (0-0.4); EOSINOPHIL % 4.5 % (0.0-4.0); LYMPH % 14.4 % (9.0-44.0); MEAN CELL VOLUME 91.9 FL (80.0-100.0); MEAN CORPUSCULAR HEMOGLOBIN 31.1 PG (27.0-34.0); MEAN CORPUSCULAR HGB CONC 33.8 % (32.0-36.0); MONO % 9.8 % (0.0-8.0); NEUT % 70.6 % (16.0-70.0); PLATELET COUNT 74 TH/MM3 (150-450); RED BLOOD COUNT 2.11 MIL/MM3 (4.00-5.30); RED CELL DISTRIBUTION WIDTH 16.3 % (11.6-17.2)
[2016-08-06 04:50] LABS: HEMO FLAGS AUTO DIFF
[2016-08-06 04:52] LABS: HEMATOCRIT 19.4 % (35.0-46.0)
[2016-08-06 05:13] LABS: ALKALINE PHOSPHATASE 78 U/L (45-117); ALT (GPT) LESS THAN 6 U/L (10-53); ANION GAP 10 MEQ/L (5-15); AST (GOT) 22 U/L (15-37); BICARBONATE 25.1 MEQ/L (21.0-32.0); BLOOD UREA NITROGEN 15 MG/DL (7-18); CALCIUM-PROTEIN CORRECTED 8.8 MG/DL (8.5-10.1); CHLORIDE 105 MEQ/L (98-107); GLOMERULAR FILTRATION RATE 27 ML/MIN (>89); MAGNESIUM 1.1 MG/DL (1.5-2.5); POTASSIUM 3.4 MEQ/L (3.5-5.1); SODIUM (NA) 140 MEQ/L (136-145); TOTAL BILIRUBIN ADULT 0.6 MG/DL (0.2-1.0)
[2016-08-06] MEDS ORDERED: SODIUM CHLOR 0.9% 250 ML INJ 250 ML IV ONE (05:45)
[2016-08-06] MEDS ORDERED: MAGNESIUM SULFATE 1 GM PREMIX 100 ML IV ONE (05:45)
[2016-08-06] MEDS ORDERED: POTASSIUM CHLORIDE 20 MEQ CONTROLLED RELEASE TAB PO ONE (05:45)
[2016-08-06] MEDS: metroNIDAZOLE 500 MG TAB PO SCH ×3 (05:50→20:53)
[2016-08-06] MEDS: SUCRALFATE 1 GM/10 ML CUP PO SCH ×4 (05:50→20:53)
[2016-08-06] MEDS: ACETAMINOPHEN/HYDROcodone 325 MG/10 MG TAB PO PRN (05:50)
[2016-08-06 07:06] LABS: SCAN/DIFF AUTO DIFF CONFIRMED
[2016-08-06] MEDS: CALCIUM/VITAMIN D 250 MG/125 U TAB PO SCH ×3 (08:33→17:22)
[2016-08-06] MEDS: RIFAXIMIN 550 MG TAB PO SCH ×2 (08:33→20:53)
[2016-08-06] MEDS: SPIRONOLACTONE 25 MG TAB PO SCH ×2 (08:33→20:53)
[2016-08-06] MEDS: SODIUM CHLORIDE 0.9% FLUSH 5 ML FLUSH IVF SCH ×2 (08:33→20:54)
[2016-08-06] MEDS: PROPRANOLOL HCL 20 MG TAB PO SCH ×4 (08:33→16:07)
[2016-08-06] MEDS: PANTOPRAZOLE SOD 40 MG DELAYED RELEASE TAB PO SCH ×2 (08:33→20:53)
[2016-08-06] MEDS: FOLIC ACID 1 MG TAB PO SCH (08:33)
[2016-08-06] MEDS ORDERED: MAGNESIUM SULFATE INJ 4 GM in DEXTROSE 5% IN WATER 100ML INJ 92 ML IV SCH ×4 (10:00→16:00)
[2016-08-06] MEDS ORDERED: POTASSIUM CHLORIDE 10 MEQ CONTROLLED RELEASE TAB PO ONE (10:00)
--- NOTE | 2016-08-06 12:39 | HHI.PR ---
Subjective Remarks No change in dyspnea. Hip pain controlled. No confusion. No N/V. Nonoliguric. No loose stools. Objective Vitals Vital Signs Date Time Temp Pulse Resp B/P Pulse Ox O2 Delivery O2 Flow Rate FiO2 08/06/16 12:07 96 Nasal Cannula 3.00 08/06/16 12:00 97.2 66 16 96/55 95 08/06/16 10:07 96.5 14 90/52 98 08/06/16 09:50 96.2 62 14 90/55 98 08/06/16 08:00 96.6 68 16 93/50 96 08/06/16 00:02 98.6 71 20 99/55 97 08/05/16 20:47 98 Nasal Cannula 3.00 08/05/16 20:00 97.6 69 20 105/60 96 08/05/16 16:00 96.4 70 17 98/65 96 100/60 I/O 08/05/16 08/05/16 08/05/16 08/06/16 08/06/16 08/06/16 07:00 15:00 23:00 07:00 15:00 23:00 Intake Total 916 ml 240 ml 240 ml 841 ml Output Total 200 ml 400 ml Balance 716 ml 240 ml 240 ml 441 ml Intake Oral 240 ml 240 ml 240 ml 240 ml IV Total 676 ml 601 ml Output Urine Total 200 ml 400 ml # Voids 1 1 1 # Bowel Movements 2 4 0 0 Result Diagram: 08/06/1641008/06/16410 Objective Remarks GENERAL: Well-nourished, well-developed pleasant middle-age female patient in no apparent distress. SKIN: Warm and dry. HEAD: Normocephalic. EYES: No scleral icterus. No injection or drainage. NECK: Supple, trachea midline. No JVD or lymphadenopathy. CARDIOVASCULAR: Regular rate and rhythm without murmurs, gallops, or rubs. RESPIRATORY: Breath sounds equal and clear to auscultation bilaterally. Nonlabored breathing on 2 L nasal cannula. GASTROINTESTINAL: Bowel sounds are present. Abdomen soft, non-tender, nondistended. EXTREMITIES: Trace pedal edema. NEUROLOGICAL: Awake, alert, and oriented x 3. Non-focal. 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 s/p multiple transfusion, S/p EGD 07/29/16, showed single non bleeding ulcer 3-7 mm in size gastric antrum. Continue Protonix, diet per GI. Iron sucrose intravenously given. Hemoglobin6.7 today - will transfuse 2 units pRBCs. Thrombocytopenia-no obvious bleeding- Likely secondary to hypersplenism per hematology. s/p transfusion prior to surgery. Thrombocytopenia stable. Status post pacer transfusion before surgery yesterday. Right tibia-fibula nonunion, present on admission, Status post ORIF revision 08/03/[address] Camacho. Nonweightbearing, will need rehabilitation. Continue oral opioids as needed for pain. C. difficile diarrhea- improving. continue oral Flagyl, switch to oral, monitor. VIMAL, nonoliguric - was improved, now worsened again today, with decreased UOP. Cont NS at 125 ml/hr. Place brito. BMP in a.m. Hypokalemia due to GI losses - continue to replete orally. repeat BMP in a.m. Hypomagnesemia - will give 4 g IV over 4 hrs. Liver cirrhosis, Hepatic encephalopathy with hyperammonemia-hold lactulose 2' recent diarrhea and ongoing hypokalemia. monitor ammonia and mental status. Bilateral lower extremity edema-likely secondary to cirrhosis, imrpoving. Hypertension- continue propranolol and Aldactone. Liver cirrhosis secondary to hepatitis C with history of hepatic encephalopathy- continue rifaximin, hold lactulose. Mild shortness of breath with wheezing- cxr 08/04 with atelectasis. continue duonebs and O2 prn. symptoms in part due to anemia. Hypokalemia-replaced Hypomagnesemia-replace DVT prophylaxis: SCDs, pharmacological prophylaxis contraindicated Discharge Planning Needs SNF, not yet ready for discharge. Jen Bautista MD Aug 06, 2016 12:39
[2016-08-06] MEDS: MAGNESIUM SULFATE 1 GM PREMIX 100 ML IV SCH ×4 (16:07→20:54)
[2016-08-06 19:58] LABS: HEMATOCRIT 27.1 % (35.0-46.0)
[2016-08-06] MEDS: traZODone HCL 50 MG TAB PO SCH (20:53)
[2016-08-07] VITALS (8 sets, daily range): BP systolic 125–159; BP diastolic 67–85; PULSE 67–82; RESP 16–18; TEMP 96.8–97.9; O2SAT 93–98
[2016-08-07] MEDS: SODIUM CHLOR 0.9% 1000 ML INJ 1,000 ML IV SCH ×2 (02:44→08:51)
[2016-08-07 05:27] LABS: AUTOMATED NEUTROPHIL # 6.8 TH/MM3 (1.8-7.7); BASOPHIL # 0.1 TH/MM3 (0-0.2); BASOPHIL % 0.7 % (0.0-2.0); EOSINOPHIL # 0.3 TH/MM3 (0-0.4); EOSINOPHIL % 3.7 % (0.0-4.0); HEMATOCRIT 27.5 % (35.0-46.0); LYMPH % 9.3 % (9.0-44.0); LYMPHOCYTE # 0.8 TH/MM3 (1.0-4.8); MEAN CELL VOLUME 88.3 FL (80.0-100.0); MONO % 7.8 % (0.0-8.0); NEUT % 78.5 % (16.0-70.0); PLATELET COUNT 81 TH/MM3 (150-450); RED BLOOD COUNT 3.11 MIL/MM3 (4.00-5.30); RED CELL DISTRIBUTION WIDTH 16.7 % (11.6-17.2); WHITE BLOOD COUNT 8.7 TH/MM3 (4.0-11.0)
[2016-08-07 05:32] LABS: BICARBONATE 24.2 MEQ/L (21.0-32.0); MAGNESIUM 2.4 MG/DL (1.5-2.5); POTASSIUM 3.7 MEQ/L (3.5-5.1)
[2016-08-07] MEDS: SUCRALFATE 1 GM/10 ML CUP PO SCH ×4 (05:32→20:40)
[2016-08-07] MEDS: metroNIDAZOLE 500 MG TAB PO SCH ×3 (05:32→20:41)
[2016-08-07 05:34] LABS: HEMO FLAGS AUTO DIFF
[2016-08-07 07:41] LABS: PLATELET ESTIMATE SMEAR LOW (NORMAL); PLATELET MORPHOLOGY NORMAL (NORMAL); SCAN/DIFF AUTO DIFF CONFIRMED
[2016-08-07] MEDS: PANTOPRAZOLE SOD 40 MG DELAYED RELEASE TAB PO SCH ×2 (08:46→20:41)
[2016-08-07] MEDS: FOLIC ACID 1 MG TAB PO SCH (08:46)
[2016-08-07] MEDS: CALCIUM/VITAMIN D 250 MG/125 U TAB PO SCH ×3 (08:46→16:49)
[2016-08-07] MEDS: PROPRANOLOL HCL 20 MG TAB PO SCH ×3 (08:46→16:49)
[2016-08-07] MEDS: RIFAXIMIN 550 MG TAB PO SCH ×2 (08:47→20:41)
[2016-08-07] MEDS: SPIRONOLACTONE 25 MG TAB PO SCH ×2 (08:49→20:41)
[2016-08-07] MEDS: SODIUM CHLORIDE 0.9% FLUSH 5 ML FLUSH IVF SCH ×2 (08:51→20:40)
[2016-08-07] MEDS: RESP: ALBUTEROL 2.5 MG/IPRATROPIUM 0.5 MG NEB (SCH) NEB ×2 (11:01→20:12)
[2016-08-07] MEDS ORDERED: Spironolactone PO (14:33)
[2016-08-07] MEDS ORDERED: HYDR-3583 PO (14:33)
[2016-08-07] MEDS ORDERED: METR-1 PO (14:33)
--- NOTE | 2016-08-07 14:44 | HHI.PR ---
Subjective Remarks Doing well, no dyspnea abd pain. no loose stools. no confusion. moderate right hip pain, mainly controlled. Objective Vitals Vital Signs Date Time Temp Pulse Resp B/P Pulse Ox O2 Delivery O2 Flow Rate FiO2 08/07/16 14:18 71 08/07/16 14:04 Nasal Cannula 2.00 08/07/16 12:00 97.2 67 16 125/69 98 08/07/16 11:04 97 Nasal Cannula 3.00 08/07/16 08:00 97.9 73 16 127/67 98 08/06/16 23:57 97.6 77 20 128/68 95 08/06/16 20:43 95 Nasal Cannula 3.00 08/06/16 20:00 98.6 73 19 121/67 95 08/06/16 16:00 97.4 64 16 104/59 96 I/O 08/06/16 08/06/16 08/06/16 08/07/16 08/07/16 08/07/16 06:59 14:59 22:59 06:59 14:59 22:59 Intake Total 841 ml 2017 ml 906 ml 1274 ml 634 ml Output Total 400 ml 200 ml 800 ml 550 ml Balance 441 ml 1817 ml 106 ml 724 ml 634 ml Intake Oral 240 ml 480 ml 360 ml 240 ml IV Total 601 ml 1537 ml 546 ml 1034 ml 634 ml Output Urine Total 400 ml 200 ml 800 ml 550 ml # Voids 1 # Bowel Movements 0 0 0 0 Result Diagram: 08/07/16 0350 08/07/16 0350 Objective Remarks GENERAL: Well-nourished, well-developed pleasant middle-age female patient in no apparent distress. SKIN: Warm and dry. HEAD: Normocephalic. EYES: No scleral icterus. No injection or drainage. NECK: Supple, trachea midline. No JVD or lymphadenopathy. CARDIOVASCULAR: Regular rate and rhythm without murmurs, gallops, or rubs. RESPIRATORY: Breath sounds equal and clear to auscultation bilaterally. Nonlabored breathing on 2 L nasal cannula. GASTROINTESTINAL: Bowel sounds are present. Abdomen soft, non-tender, nondistended. EXTREMITIES: Trace pedal edema. NEUROLOGICAL: Awake, alert, and oriented x 3. Non-focal. 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 s/p multiple transfusion, S/p EGD 07/29/16, showed single non bleeding ulcer 3-7 mm in size gastric antrum. Continue Protonix, diet per GI. Iron sucrose intravenously given. Hemoglobin6.7 08/06 - transfused 2 units pRBCs with improvement of hb to 9. will repeat CBC in a.m. Thrombocytopenia-no obvious bleeding- Likely secondary to hypersplenism per hematology. s/p transfusion prior to surgery. Thrombocytopenia stable. Right tibia-fibula nonunion, present on admission, Status post ORIF revision 08/03/[address] Camacho. Nonweightbearing, will need rehabilitation. Continue oral opioids as needed for pain. C. difficile diarrhea- improving. continue oral Flagyl, switch to oral, monitor. VIMAL, nonoliguric - improved. [place] brito. repeat BMP in a.m. Hypokalemia due to GI losses - continue to replete orally. repeat BMP in a.m. Hypomagnesemia - will give 4 g IV over 4 hrs. Liver cirrhosis, Hepatic encephalopathy with hyperammonemia-hold lactulose 2' recent diarrhea and ongoing hypokalemia. con rifaximin. now compensated. monitor mental status. Bilateral lower extremity edema-likely secondary to cirrhosis, imrpoving. Hypertension- continue propranolol and Aldactone. Liver cirrhosis secondary to hepatitis C with history of hepatic encephalopathy- continue rifaximin, hold lactulose given recent c dif. Mild shortness of breath - cxr 08/04 with atelectasis. continue duonebs and O2 prn. symptoms in part due to anemia. Hypokalemia-replaced Hypomagnesemia-replace DVT prophylaxis: SCDs, pharmacological prophylaxis contraindicated Discharge Planning Medically cleared for SNF vs IR in a.m. when bed available. Jen Bautista MD Aug 07, 2016 14:44
[2016-08-07] MEDS: traZODone HCL 50 MG TAB PO SCH (20:41)
[2016-08-08] MEDS: RESP: ALBUTEROL 2.5 MG/IPRATROPIUM 0.5 MG NEB (SCH) NEB ×2 (03:29→09:22)
[2016-08-08 04:43] LABS: AUTOMATED NEUTROPHIL # 3.9 TH/MM3 (1.8-7.7); BASOPHIL # 0.1 TH/MM3 (0-0.2); BASOPHIL % 1.4 % (0.0-2.0); EOSINOPHIL # 0.2 TH/MM3 (0-0.4); EOSINOPHIL % 3.6 % (0.0-4.0); HEMATOCRIT 28.5 % (35.0-46.0); LYMPH % 18.5 % (9.0-44.0); LYMPHOCYTE # 1.1 TH/MM3 (1.0-4.8); MEAN CORPUSCULAR HEMOGLOBIN 29.6 PG (27.0-34.0); MEAN CORPUSCULAR HGB CONC 33.2 % (32.0-36.0); MONO % 9.3 % (0.0-8.0); NEUT % 67.2 % (16.0-70.0); PLATELET COUNT 72 TH/MM3 (150-450); RED CELL DISTRIBUTION WIDTH 17.3 % (11.6-17.2); WHITE BLOOD COUNT 5.8 TH/MM3 (4.0-11.0)
[2016-08-08 04:59] LABS: HEMO FLAGS DIFF FINAL
[2016-08-08 05:02] LABS: BICARBONATE 24.9 MEQ/L (21.0-32.0); POTASSIUM 3.7 MEQ/L (3.5-5.1)
[2016-08-08] MEDS: metroNIDAZOLE 500 MG TAB PO SCH ×3 (06:13→19:13)
[2016-08-08] MEDS: SUCRALFATE 1 GM/10 ML CUP PO SCH ×4 (06:13→19:13)
[2016-08-08 07:54] VITALS: BP 133/74; PULSE 72; RESP 16; TEMP 97.8; O2SAT 95
[2016-08-08] MEDS: RIFAXIMIN 550 MG TAB PO SCH ×2 (08:08→19:13)
[2016-08-08] MEDS: CALCIUM/VITAMIN D 250 MG/125 U TAB PO SCH ×3 (08:09→17:22)
[2016-08-08] MEDS: FOLIC ACID 1 MG TAB PO SCH (08:09)
[2016-08-08] MEDS: SODIUM CHLORIDE 0.9% FLUSH 5 ML FLUSH IVF SCH ×2 (08:09→19:20)
[2016-08-08] MEDS: SPIRONOLACTONE 25 MG TAB PO SCH ×2 (08:09→19:13)
[2016-08-08] MEDS: PROPRANOLOL HCL 20 MG TAB PO SCH ×3 (08:09→17:22)
[2016-08-08] MEDS: PANTOPRAZOLE SOD 40 MG DELAYED RELEASE TAB PO SCH ×2 (08:09→19:13)
[2016-08-08 09:25] VITALS: O2SAT 92
--- NOTE | 2016-08-08 10:55 | HHI.PR ---
Subjective Remarks No loose stools or confusion. Hip pain controlled. Doing well. Objective Vitals Vital Signs Date Time Temp Pulse Resp B/P Pulse Ox O2 Delivery O2 Flow Rate FiO2 08/08/16 09:25 92 21 08/08/16 08:09 95 Room Air 21 08/08/16 07:54 97.8 72 16 133/74 95 08/07/16 23:35 97.8 77 16 159/76 94 08/07/16 21:22 Room Air 08/07/16 20:25 96.8 72 16 156/85 96 08/07/16 20:15 93 Nasal Cannula 3.00 08/07/16 15:57 97.1 82 18 138/84 93 08/07/16 14:04 Nasal Cannula 2.00 08/07/16 12:00 97.2 67 16 125/69 98 08/07/16 11:04 97 Nasal Cannula 3.00 I/O 08/07/16 08/07/16 08/07/16 08/08/16 08/08/16 08/08/16 07:00 15:00 23:00 07:00 15:00 23:00 Intake Total 1274 ml 1354 ml 360 ml 360 ml Output Total 550 ml 700 ml 750 ml 500 ml Balance 724 ml 654 ml -390 ml -140 ml Intake Oral 240 ml 720 ml 360 ml 360 ml IV Total 1034 ml 634 ml 0 ml 0 ml Output Urine Total 550 ml 700 ml 750 ml 500 ml # Bowel Movements 0 0 Result Diagram: 08/08/16 0411 08/08/16 0326 Objective Remarks GENERAL: Well-nourished, well-developed pleasant middle-age female patient in no apparent distress. SKIN: Warm and dry. HEAD: Normocephalic. EYES: No scleral icterus. No injection or drainage. NECK: Supple, trachea midline. No JVD or lymphadenopathy. CARDIOVASCULAR: Regular rate and rhythm without murmurs, gallops, or rubs. RESPIRATORY: Breath sounds equal and clear to auscultation bilaterally. Nonlabored breathing on 2 L nasal cannula. GASTROINTESTINAL: Bowel sounds are present. Abdomen soft, non-tender, nondistended. EXTREMITIES: Trace pedal edema. NEUROLOGICAL: Awake, alert, and oriented x 3. Non-focal. Procedures EGD: Showed gastric antral ulcer A/P Problem List: (1) Hepatitis C ICD Code: B19.20 Status: Chronic (2) Cirrhosis of liver ICD Code: K74.60 Status: Chronic (3) Acute renal failure ICD Code: N17.9 Status: Acute (4) Fracture of distal end of tibia with fibula ICD Code: S82.309A Status: Chronic (5) Anemia ICD Code: D64.9 Status: Acute (6) Hypokalemia ICD Code: E87.6 Status: Acute (7) Thrombocytopenia ICD Code: D69.6 Status: Acute (8) Clostridium difficile colitis ICD Code: A04.7 Status: Acute (9) Gastric ulcer ICD Code: K25.9 Status: Acute (10) Pancytopenia ICD Code: D61.818 Status: Acute (11) Hepatic encephalopathy ICD Code: K72.90 Status: Acute Assessment and Plan 55-year-old female Symptomatic iron deficiency anemia-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 s/p multiple transfusion, S/p EGD 07/29/16, showed single non bleeding ulcer 3-7 mm in size gastric antrum. Continue Protonix, diet per GI. S/p iron sucrose intravenous. Hemoglobin 6.7 08/06 - transfused 2 units pRBCs with improvement of hb to 9. Hb stable today. Thrombocytopenia-no obvious bleeding- Likely secondary to hypersplenism per hematology. s/p transfusion prior to surgery. Thrombocytopenia stable. Right tibia-fibula nonunion, present on admission, Status post ORIF revision 08/03/[address] Camacho. Nonweightbearing, will need rehabilitation. Continue oral opioids as needed for pain. C. difficile diarrhea- improving/no further loose stools. continue oral Flagyl , total 14 days. VIMAL, nonoliguric (due to diuresis and GI losses) - improved. Cr 1 today. Hypokalemia due to GI losses - resolved. Hypomagnesemia - resolved. Liver cirrhosis, Hepatic encephalopathy with hyperammonemia- lactulose held 2 ' recent diarrhea and ongoing hypokalemia. con rifaximin. now compensated. monitor mental status. Bilateral lower extremity edema-likely secondary to cirrhosis, improving/stable. Hypertension- continue propranolol and Aldactone. Mild shortness of breath -improved. cxr 08/04 with atelectasis. continue duonebs and O2 prn. symptoms in part due to anemia. DVT prophylaxis: SCDs, pharmacological prophylaxis contraindicated Discharge Planning DC to rehab (awaiting bed/insurance auth). Jen Bautista MD Aug 08, 2016 10:55
[2016-08-08 12:00] VITALS: BP 118/70; PULSE 73; RESP 16; TEMP 97.8; O2SAT 92
[2016-08-08 16:00] VITALS: BP 156/84; PULSE 75; RESP 16; TEMP 98.1; O2SAT 93
[2016-08-08] MEDS: traZODone HCL 50 MG TAB PO SCH (19:13)
[2016-08-08 20:20] VITALS: BP 160/83; PULSE 74; RESP 16; TEMP 97.7; O2SAT 96
[2016-08-08 23:50] VITALS: BP 148/83; PULSE 78; RESP 16; TEMP 98.1; O2SAT 93
[2016-08-09] MEDS: metroNIDAZOLE 500 MG TAB PO SCH ×3 (04:09→20:49)
[2016-08-09] MEDS: SUCRALFATE 1 GM/10 ML CUP PO SCH ×4 (04:09→20:50)
--- NOTE | 2016-08-09 07:25 | PD.ORT.PN ---
Subjective Subjective Remarks POD 6 s/p nonunion right distal tibia with revision ORIF patietn doing well. no complaints. resting comfortably Objective Vitals Vital Signs Date Time Temp Pulse Resp B/P Pulse Ox O2 Delivery O2 Flow Rate FiO2 08/08/16 23:50 98.1 78 16 148/83 93 08/08/16 20:28 Room Air 08/08/16 20:20 97.7 74 16 160/83 96 08/08/16 16:00 98.1 75 16 156/84 93 08/08/16 12:00 97.8 73 16 118/70 92 08/08/16 09:25 92 21 08/08/16 08:09 95 Room Air 21 08/08/16 07:54 97.8 72 16 133/74 95 I/O 08/08/16 08/08/16 08/08/16 08/09/16 08/09/16 08/09/16 07:00 15:00 23:00 07:00 15:00 23:00 Intake Total 360 ml 720 ml 380 ml 240 ml Output Total 500 ml 475 ml 380 ml 380 ml Balance -140 ml 245 ml 0 ml -140 ml Intake Oral 360 ml 720 ml 380 ml 240 ml IV Total 0 ml 0 ml 0 ml Output Urine Total 500 ml 475 ml 380 ml 380 ml # Bowel Movements 1 0 0 Result Diagram: 08/08/16 0411 08/08/16 0326 Imaging Last 72 hours Impressions Ankle X-Ray 08/03/16 0000 Signed Impressions: Service Date/Time: Wednesday, August 03, 2016 16:54 - CONCLUSION: Status post ORIF of distal right tibial and fibular fractures resulting in satisfactory anatomic alignment. Edis Plascencia MD Objective Remarks Right lower extremity: Iliac crest bone graft site with mild drainage. Dressing intact. No pain with hip or knee range of motion. Splint intact over ankle clean dry and intact. distally neurovascularly intact Assessment & Plan Assessment and Plan 1) Right Distal Tibia nonunion POD 6 with removal of hardware, open reduction internal fixation, stem cells and iliac crest bone graft Strict nonweightbearing right lower extremity Elevation Maintain splint at all times Begin daily dressing changes of iliac crest bone graft site beginning POD 2 with Xeroform and Primapore Incentive spirometry Lovenox Patient resides at a [facility] house and at this point does not have adequate care outside of the hospital. Unfortunately placement is going to be difficult Rafa Valencia Aug 09, 2016 07:25
[2016-08-09] MEDS: SODIUM CHLORIDE 0.9% FLUSH 5 ML FLUSH IVF SCH ×2 (08:02→20:50)
[2016-08-09] MEDS: RIFAXIMIN 550 MG TAB PO SCH ×2 (08:02→20:49)
[2016-08-09] MEDS: SPIRONOLACTONE 25 MG TAB PO SCH ×2 (08:02→20:50)
[2016-08-09] MEDS: PANTOPRAZOLE SOD 40 MG DELAYED RELEASE TAB PO SCH ×2 (08:02→20:50)
[2016-08-09] MEDS: FOLIC ACID 1 MG TAB PO SCH (08:02)
[2016-08-09] MEDS: CALCIUM/VITAMIN D 250 MG/125 U TAB PO SCH ×3 (08:02→16:12)
[2016-08-09] MEDS: PROPRANOLOL HCL 20 MG TAB PO SCH ×3 (08:02→16:12)
[2016-08-09 08:04] VITALS: BP 165/86; PULSE 17; RESP 17; TEMP 98.1; O2SAT 96
--- NOTE | 2016-08-09 08:06 | MP ---
cc: GERMAN CAMACHO DATE OF SURGERY 08/03/2016 PREOPERATIVE DIAGNOSIS 1. Nonunion right distal tibia and fibula fractures. 2. Broken hardware of right distal tibia and distal fibula. POSTOPERATIVE DIAGNOSIS 1. Nonunion right distal tibia and fibula fractures. 2. Broken hardware of right distal tibia and distal fibula. SURGEON German Camacho MD ASSISTANTS FARHEEN Briones PA-C The surgical procedure was assisted by my physician assistants. My PA-C's presence was necessary throughout this case for the manipulation and positioning of the surgical extremity. My PA-C's were assisting me throughout the duration of this procedure. The skill set of a physician teachers assistant was medically necessary to complete this procedure. During the surgical case the surgical instrument technician was working at the back table and the physician assistants were directly assisting me. PROCEDURE 1. Removal of broken hardware from right fibula. 1. Removal of broken hardware from right tibia. 2. Open treatment of right tibia nonunion. 3. Open treatment of right fibula nonunion. 4. Iliac crest bone grafting with stem cell graft. ESTIMATED BLOOD LOSS 400 cc. ANESTHESIA General. PLAN OF ACTIVITY Strict non-weightbearing. DETAILS OF PROCEDURE Genoveva is a 55-year-old female who is well-known to me from previous treatment of right distal tibia and fibula fractures. After her initial injury and surgery, the patient was noncompliant and was persistently weightbearing despite instructions to be non-weightbearing. The patient subsequently presented to the office with failure hardware and nonunion. Informed consent was obtained. The operative site was marked. She was brought to the OR and placed on the OR table. She was given IV sedation and GETA. The right leg was prepped with alcohol, followed by Hibiclens and draped in the usual sterile fashion. Time-out procedure was performed. She received IV antibiotics prior to incision. The procedure began with attention turned towards the fibula. A 5-inch incision was made over the distal tibia. The subcutaneous tissue was dissected with Bovie. The hardware was now visualized. At this point attention was turned to hardware removal. The plate had broken. Multiple screws had also broken. The intact screws were now loosened with a screwdriver and then removed with a drill. The plate was now removed. The remainder of the broken screws were now localized under fluoroscopy. Removal of the broken screws was very difficult because of the number of broken screws. Each of the screws was now carefully removed using a broken screw removal set. Care was taken to avoid creating too many holes in the distal fibula. Next attention was turned to the distal tibia. A 6-inch incision was made over the medial distal tibia. The previous incisions were utilized. Subcutaneous tissue was dissected with Bovie and our attention was now turned towards hardware removal. Again hardware removal was very difficult because of the number of broken screws and plates. The screws were now loosened using a screwdriver. The screws were now removed using a drill. The broken screws were now identified under fluoroscopy. The majority of the broken screws were removed using the broken screw removal instruments. Again hardware removal was difficult. A few of the distal screws were left in place because I did not want to create too many defects in a small distal tibial segment which would make fixation difficult. Attention was turned to the open treatment of the distal tibia nonunion. A TPS bur was used to debride the nonunion. Curettes and rongeurs were used to debride fibrous tissue. All fibrous tissue was removed. Cortical bone was debrided back to healthy bleeding bone. There was a large defect in the metaphyseal region. At this point, attention was turned towards the distal fibula. The distal fibula was also debrided of fibrous tissue. There was a large amount fibrous tissue present. TPS bur and rongeurs were used to debride bone back to healthy bleeding bone. The wounds were now thoroughly irrigated. Next, attention was turned to iliac crest bone grafting. A 3-inch incision was made over the iliac crest. The subcutaneous tissue was dissected with Bovie. The fascia was elevated sharply. The soft tissue was protected. An osteotome was used to obtain a tricortical bone graft. The size of the graft was measured to fit the defect of the tibial metaphysis. This bone was now shaped to fit into the metaphyseal region. Additionally cancellous bone chips were obtained from the iliac crest. At this point, attention was turned to open reduction, internal fixation of the tibial nonunion. The tibia was distracted open. The tricortical bone fragment was now placed into the distal tibia. This was a structured graft as well as bone grafting of iliac crest. A Synthes medial to distal tibial plate was selected. The plate was placed along the medial aspect back to the tibia. The plate was provisionally held to bone with K-wires. 3.5 cortical screws were used to compress plate to bone. Fluoroscopy confirmed appropriate plate placement. Multiple 2.7 locking screws were placed distally. Multiple 3.5 cortical screws were placed in the tibia shaft. All screws were predilated and measured for appropriate length. Attention was turned the distal fibula. A distal fibula plate was selected. The plate was provisionally held to bone with K-wires. Multiple 2.7 cortical screws used compress plate to bone. Multiple 2.7 locking screws were placed distally. Next, attention was turned to stem cell grafting. The remainder of the cancellous bone graft from the iliac crest was mixed with a medium stem cell graft. This was also mixed with bone marrow aspirate from the pelvis. Once this was ready, the remainder of the defects along the tibia and fibula were filled with bone graft. The tourniquet was released. Hemostasis was confirmed. At this point incisions were closed. The pelvic incision was closed with #1 Vicryl, 3-0 Vicryl and mariza. The ankle incisions were closed with 3-0 Vicryl and 3-0 nylon. Sterile dressings were applied. The patient was placed into a well-molded, well-padded splint and she was transferred to Recovery in stable condition. MD LILIAN Wright/CAREN /5:46 PM /7:47 AM
[2016-08-09 08:08] VITALS: BP 126/71; PULSE 88; RESP 18; TEMP 98.1; O2SAT 97
[2016-08-09 11:16] VITALS: BP 159/83; PULSE 74; RESP 19; TEMP 98; O2SAT 95
--- NOTE | 2016-08-09 14:46 | HHI.PR ---
Subjective Remarks Follow-up for anemia, CHF, right tib-fib nonunion. The patient has no acute complaints today. She denies any diarrhea. Discussed with case management, difficulty with arranging SNF care. Objective Vitals Vital Signs Date Time Temp Pulse Resp B/P Pulse Ox O2 Delivery O2 Flow Rate FiO2 08/09/16 11: 98.0 74 19 159/83 95 08/09/16 08:08 98.1 88 18 126/71 97 08/09/16 08:04 98.1 17 17 165/86 96 08/08/16 23:50 98.1 78 16 148/83 93 08/08/16 20:28 Room Air 08/08/16 20:20 97.7 74 16 160/83 96 08/08/16 16:00 98.1 75 16 156/84 93 I/O 08/08/16 08/08/16 08/08/16 08/09/16 08/09/16 08/09/16 07:00 15:00 23:00 07:00 15:00 23:00 Intake Total 360 ml 720 ml 380 ml 240 ml 890 ml Output Total 500 ml 475 ml 380 ml 380 ml 780 ml Balance -140 ml 245 ml 0 ml -140 ml 110 ml Intake Oral 360 ml 720 ml 380 ml 240 ml 890 ml IV Total 0 ml 0 ml 0 ml Output Urine Total 500 ml 475 ml 380 ml 380 ml 780 ml # Bowel Movements 1 0 0 0 Result Diagram: 08/08/16 0411 08/08/16 0326 Imaging Last Impressions Chest X-Ray 08/04/16 0000 Signed Impressions: Service Date/Time: Thursday, August 04, 2016 14:39 - CONCLUSION: Bilateral airspace disease characteristic of atelectasis. No evidence of consolidating infiltrate. No evidence of significant congestion. Edis Plascencia MD Ankle X-Ray 08/03/16 0000 Signed Impressions: Service Date/Time: Wednesday, August 03, 2016 16:54 - CONCLUSION: Status post ORIF of distal right tibial and fibular fractures resulting in satisfactory anatomic alignment. Edis Plascencia MD Spleen Ultrasound 07/28/16 0000 Signed Impressions: Service Date/Time: Thursday, July 28, 2016 15:26 - CONCLUSION: Normal size spleen. Ramos Lo MD FACR Objective Remarks GENERAL: Well-developed well-nourished. In no acute distress. Sitting up in a chair with right leg elevated. SKIN: Warm and dry. No lesions noted. HEENT: Normocephalic. Pupils equal and round. Mucous membranes pink and moist. CARDIOVASCULAR: Regular rate and rhythm. No murmur appreciated. RESPIRATORY: No accessory muscle use. Clear to auscultation. Breath sounds equal bilaterally. GASTROINTESTINAL: Abdomen soft, non-tender, nondistended. Bowel sounds x4. MUSCULOSKELETAL: Right lower extremity in a cast. No clubbing or cyanosis. No edema. NEUROLOGICAL: Awake and alert. No focal neurological deficits. Moves upper and lower extremities spontaneously. Normal speech. PSYCHIATRIC: Appropriate mood and affect; insight and judgment normal. Procedures EGD: Showed gastric antral ulcer 08/03 removal of tib-fib hardware with ORIF A/P Problem List: (1) Hepatitis C ICD Code: B19.20 Status: Chronic (2) Cirrhosis of liver ICD Code: K74.60 Status: Chronic (3) Acute renal failure ICD Code: N17.9 Status: Acute (4) Fracture of distal end of tibia with fibula ICD Code: S82.309A Status: Chronic (5) Anemia ICD Code: D64.9 Status: Acute (6) Hypokalemia ICD Code: E87.6 Status: Acute (7) Thrombocytopenia ICD Code: D69.6 Status: Acute (8) Clostridium difficile colitis ICD Code: A04.7 Status: Acute (9) Gastric ulcer ICD Code: K25.9 Status: Acute (10) Pancytopenia ICD Code: D61.818 Status: Acute (11) Hepatic encephalopathy ICD Code: K72.90 Status: Acute Assessment and Plan 55-year-old female 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 s/p multiple transfusion, S/p EGD 07/29/16, showed single non bleeding ulcer 3-7 mm in size gastric antrum. Continue Protonix, diet per GI. S/p iron sucrose intravenous. Hemoglobin 6.7 08/06 - transfused 2 units pRBCs with improvement of hb to 9. Hb stable. Thrombocytopenia-no obvious bleeding- Likely secondary to hypersplenism per hematology. s/p transfusion prior to surgery. Thrombocytopenia stable. Right tibia-fibula nonunion, present on admission, Status post ORIF revision 08/03/[address] Camacho. Nonweightbearing, will need rehabilitation. Continue oral opioids as needed for pain. C. difficile diarrhea- improving/no further loose stools. continue oral Flagyl , total 14 days, started 08/04. VIMAL, nonoliguric (due to diuresis and GI losses) - improved. Cr 1.02 now. Hypokalemia due to GI losses - resolved. Hypomagnesemia - resolved. Liver cirrhosis, Hepatic encephalopathy with hyperammonemia- lactulose held 2/ 2 recent diarrhea and ongoing hypokalemia. cont rifaximin. now compensated. monitor mental status. Bilateral lower extremity edema-likely secondary to cirrhosis, improving/stable. Hypertension- continue propranolol and Aldactone. Mild shortness of breath -improved. cxr 08/04 with atelectasis. continue duonebs and O2 prn. symptoms in part due to anemia. DVT prophylaxis: SCDs, pharmacological prophylaxis contraindicated Written by Ian Gill, acting as scribe for Dr. Bautista on 08/09/16 at 14:45. Discharge Planning Discharge to SNF when arranged, case management assisting. Attending Statement The documentation accurately reflects the work performed [id number] by me on 08/09/16 at 14:45. Ian Gill Aug 09, 2016 14:45 Jen Bautista MD Aug 09, 2016 16:42
[2016-08-09 15:59] VITALS: BP 150/80; PULSE 76; RESP 19; TEMP 98.1; O2SAT 95
[2016-08-09 20:00] VITALS: BP 157/90; PULSE 71; RESP 20; TEMP 98; O2SAT 94
[2016-08-09] MEDS: traZODone HCL 50 MG TAB PO SCH (20:49)
[2016-08-10] VITALS: BP 140/74; PULSE 74; RESP 20; TEMP 98.7; O2SAT 93
[2016-08-10] MEDS: SUCRALFATE 1 GM/10 ML CUP PO SCH ×4 (05:50→21:54)
[2016-08-10] MEDS: metroNIDAZOLE 500 MG TAB PO SCH ×3 (05:50→21:53)
[2016-08-10] MEDS: PANTOPRAZOLE SOD 40 MG DELAYED RELEASE TAB PO SCH ×2 (07:57→21:53)
[2016-08-10] MEDS: SPIRONOLACTONE 25 MG TAB PO SCH ×2 (07:57→21:53)
[2016-08-10] MEDS: CALCIUM/VITAMIN D 250 MG/125 U TAB PO SCH ×3 (07:57→17:45)
[2016-08-10] MEDS: RIFAXIMIN 550 MG TAB PO SCH ×2 (07:57→21:53)
[2016-08-10] MEDS: FOLIC ACID 1 MG TAB PO SCH (07:58)
[2016-08-10] MEDS: SODIUM CHLORIDE 0.9% FLUSH 5 ML FLUSH IVF SCH ×2 (07:58→21:54)
[2016-08-10] MEDS: PROPRANOLOL HCL 20 MG TAB PO SCH ×3 (07:58→17:45)
[2016-08-10 08:00] VITALS: BP 118/69; PULSE 75; RESP 18; TEMP 97.6; O2SAT 92
--- NOTE | 2016-08-10 10:52 | HHI.PR ---
Subjective Remarks patient very motivated with physical therapt, no pain complaints voiding spontaneously, moved bowel yesterday- small one no nausea or vomiting Objective Vitals Vital Signs Date Time Temp Pulse Resp B/P Pulse Ox O2 Delivery O2 Flow Rate FiO2 08/10/16 08:00 97.6 75 18 118/69 92 08/10/16 00:00 98.7 74 20 140/74 93 08/09/16 21:00 Room Air 08/09/16 20:00 98.0 71 20 157/90 94 08/09/16 15:59 98.1 76 19 150/80 95 08/09/16 11:16 98.0 74 19 159/83 95 I/O 08/09/16 08/09/16 08/09/16 08/10/16 08/10/16 08/10/16 06:59 14:59 22:59 06:59 14:59 22:59 Intake Total 240 ml 890 ml 240 ml 0 ml Output Total 380 ml 780 ml 300 ml 700 ml Balance -140 ml 110 ml -60 ml -700 ml Intake Oral 240 ml 890 ml 240 ml 0 ml IV Total 0 ml 0 ml 0 ml Output Urine Total 380 ml 780 ml 300 ml 700 ml # Bowel Movements 0 0 Result Diagram: 08/08/16 0411 08/08/16 0326 Imaging Last Impressions Chest X-Ray 08/04/16 0000 Signed Impressions: Service Date/Time: Thursday, August 04, 2016 14:39 - CONCLUSION: Bilateral airspace disease characteristic of atelectasis. No evidence of consolidating infiltrate. No evidence of significant congestion. Edis Plascencia MD Ankle X-Ray 08/03/16 0000 Signed Impressions: Service Date/Time: Wednesday, August 03, 2016 16:54 - CONCLUSION: Status post ORIF of distal right tibial and fibular fractures resulting in satisfactory anatomic alignment. Edis Plascencia MD Spleen Ultrasound 07/28/16 0000 Signed Impressions: Service Date/Time: Thursday, July 28, 2016 15:26 - CONCLUSION: Normal size spleen. Ramos Lo MD FACR Objective Remarks GENERAL: awake and alert, oriented x 3 SKIN: Warm and dry. HEAD: Normocephalic. EYES: No scleral icterus. No injection or drainage. NECK: Supple, trachea midline. No JVD or lymphadenopathy. CARDIOVASCULAR: Regular rate and rhythm without murmurs, gallops, or rubs. RESPIRATORY: Breath sounds equal bilaterally. No accessory muscle use. GASTROINTESTINAL: Abdomen soft, non-tender, nondistended. Right lower extremity- with cast in place BACK: Nontender without obvious deformity. No CVA tenderness. Procedures EGD: Showed gastric antral ulcer 08/03 removal of tib-fib hardware with ORIF A/P Problem List: (1) Hepatitis C ICD Code: B19.20 Status: Chronic (2) Cirrhosis of liver ICD Code: K74.60 Status: Chronic (3) Acute renal failure ICD Code: N17.9 Status: Acute (4) Fracture of distal end of tibia with fibula ICD Code: S82.309A Status: Chronic (5) Anemia ICD Code: D64.9 Status: Acute (6) Hypokalemia ICD Code: E87.6 Status: Acute (7) Thrombocytopenia ICD Code: D69.6 Status: Acute (8) Clostridium difficile colitis ICD Code: A04.7 Status: Acute (9) Gastric ulcer ICD Code: K25.9 Status: Acute (10) Pancytopenia ICD Code: D61.818 Status: Acute (11) Hepatic encephalopathy ICD Code: K72.90 Status: Acute Assessment and Plan 55-year-old female 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 s/p multiple transfusion, S/p EGD 07/29/16, showed single non bleeding ulcer 3-7 mm in size gastric antrum. Continue Protonix, diet per GI. S/p iron sucrose intravenous. Hemoglobin 6.7 08/06 - transfused 2 units pRBCs with improvement of hb to 9. Hb stable. Thrombocytopenia-no obvious bleeding- Likely secondary to hypersplenism per hematology. s/p transfusion prior to surgery. Thrombocytopenia stable. Right tibia-fibula nonunion, present on admission, Status post ORIF revision 08/03/[address] Camacho. Nonweightbearing, will need rehabilitation. Continue oral opioids as needed for pain. C. difficile diarrhea- improving/no further loose stools. continue oral Flagyl , total 14 days, started 08/04. VIMAL, nonoliguric (due to diuresis and GI losses) - improved. Cr 1.02 now. Hypokalemia due to GI losses - resolved. Hypomagnesemia - resolved. Liver cirrhosis, Hepatic encephalopathy with hyperammonemia- lactulose held 2/ 2 recent diarrhea and ongoing hypokalemia. cont rifaximin. now compensated. monitor mental status. Bilateral lower extremity edema-likely secondary to cirrhosis, improving/stable. Hypertension- continue propranolol and Aldactone. Mild shortness of breath -improved. cxr 08/04 with atelectasis. continue duonebs and O2 prn. symptoms in part due to anemia. DVT prophylaxis: SCDs, pharmacological prophylaxis contraindicated Justin Thompson MD Aug 10, 2016 10:52
[2016-08-10 12:00] VITALS: BP 124/72; PULSE 74; RESP 18; TEMP 97.8; O2SAT 93
[2016-08-10 16:00] VITALS: BP 136/64; PULSE 68; RESP 16; TEMP 97.4; O2SAT 91
[2016-08-10 20:00] VITALS: BP 156/89; PULSE 71; RESP 20; TEMP 96.1; O2SAT 96
[2016-08-10] MEDS ORDERED: DOCUSATE SODIUM 100 MG CAP PO SCH (21:00)
[2016-08-10] MEDS: traZODone HCL 50 MG TAB PO SCH (21:54)
[2016-08-11] VITALS: BP 169/80; PULSE 71; RESP 20; TEMP 97.1; O2SAT 94
[2016-08-11] MEDS: metroNIDAZOLE 500 MG TAB PO SCH ×3 (06:39→21:54)
[2016-08-11] MEDS: SUCRALFATE 1 GM/10 ML CUP PO SCH ×4 (06:39→21:54)
[2016-08-11 08:00] VITALS: BP 134/73; PULSE 78; RESP 18; TEMP 98.1; O2SAT 100
[2016-08-11] MEDS: FOLIC ACID 1 MG TAB PO SCH (08:43)
[2016-08-11] MEDS: SODIUM CHLORIDE 0.9% FLUSH 5 ML FLUSH IVF SCH ×2 (08:43→22:02)
[2016-08-11] MEDS: PROPRANOLOL HCL 20 MG TAB PO SCH ×3 (08:43→16:22)
[2016-08-11] MEDS: CALCIUM/VITAMIN D 250 MG/125 U TAB PO SCH ×3 (08:43→16:22)
[2016-08-11] MEDS: SPIRONOLACTONE 25 MG TAB PO SCH ×2 (08:43→21:54)
[2016-08-11] MEDS: RIFAXIMIN 550 MG TAB PO SCH ×2 (08:43→21:54)
[2016-08-11] MEDS: PANTOPRAZOLE SOD 40 MG DELAYED RELEASE TAB PO SCH ×2 (08:43→21:54)
[2016-08-11 09:31] VITALS: O2SAT 94
--- NOTE | 2016-08-11 11:43 | HHI.PR ---
Subjective Remarks no complains looking forward to going to a SNF Objective Vitals Vital Signs Date Time Temp Pulse Resp B/P Pulse Ox O2 Delivery O2 Flow Rate FiO2 08/11/16 09:31 94 08/11/16 08:00 98.1 78 18 134/73 100 08/11/16 00:00 97.1 71 20 169/80 94 08/10/16 20:00 96.1 71 20 156/89 96 08/10/16 16:00 97.4 68 16 136/64 91 08/10/16 12:00 97.8 74 18 124/72 93 I/O 08/10/16 08/10/16 08/10/16 08/11/16 08/11/16 08/11/16 07:00 15:00 23:00 07:00 15:00 23:00 Intake Total 0 ml 480 ml 240 ml 360 ml Output Total 700 ml 400 ml 600 ml 1000 ml Balance -700 ml 80 ml -360 ml -640 ml Intake Oral 0 ml 480 ml 240 ml 360 ml IV Total 0 ml 0 ml 0 ml Output Urine Total 700 ml 400 ml 600 ml 1000 ml # Bowel Movements 0 0 0 Result Diagram: 08/08/16 0411 08/08/16 0326 Imaging Last Impressions Chest X-Ray 08/04/16 0000 Signed Impressions: Service Date/Time: Thursday, August 04, 2016 14:39 - CONCLUSION: Bilateral airspace disease characteristic of atelectasis. No evidence of consolidating infiltrate. No evidence of significant congestion. Edis Plascencia MD Ankle X-Ray 08/03/16 0000 Signed Impressions: Service Date/Time: Wednesday, August 03, 2016 16:54 - CONCLUSION: Status post ORIF of distal right tibial and fibular fractures resulting in satisfactory anatomic alignment. Edis Plascencia MD Spleen Ultrasound 07/28/16 0000 Signed Impressions: Service Date/Time: Thursday, July 28, 2016 15:26 - CONCLUSION: Normal size spleen. Ramos Lo MD FACR Objective Remarks GENERAL: awake and alert, oriented x 3 SKIN: Warm and dry. HEAD: Normocephalic. EYES: No scleral icterus. No injection or drainage. NECK: Supple, trachea midline. No JVD or lymphadenopathy. CARDIOVASCULAR: Regular rate and rhythm without murmurs, gallops, or rubs. RESPIRATORY: Breath sounds equal bilaterally. No accessory muscle use. GASTROINTESTINAL: Abdomen soft, non-tender, nondistended. Right lower extremity- with cast in place. moves toes spontaneously BACK: Nontender without obvious deformity. No CVA tenderness. Procedures EGD: Showed gastric antral ulcer 08/03 removal of tib-fib hardware with ORIF A/P Problem List: (1) Hepatitis C ICD Code: B19.20 Status: Chronic (2) Cirrhosis of liver ICD Code: K74.60 Status: Chronic (3) Acute renal failure ICD Code: N17.9 Status: Acute (4) Fracture of distal end of tibia with fibula ICD Code: S82.309A Status: Chronic (5) Anemia ICD Code: D64.9 Status: Acute (6) Hypokalemia ICD Code: E87.6 Status: Acute (7) Thrombocytopenia ICD Code: D69.6 Status: Acute (8) Clostridium difficile colitis ICD Code: A04.7 Status: Acute (9) Gastric ulcer ICD Code: K25.9 Status: Acute (10) Pancytopenia ICD Code: D61.818 Status: Acute (11) Hepatic encephalopathy ICD Code: K72.90 Status: Acute Assessment and Plan 55-year-old female 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 s/p multiple transfusion, S/p EGD 07/29/16, showed single non bleeding ulcer 3-7 mm in size gastric antrum. Continue Protonix, diet per GI. S/p iron sucrose intravenous. Hb stable. Thrombocytopenia-no obvious bleeding- Likely secondary to hypersplenism per hematology. s/p transfusion prior to surgery. Thrombocytopenia stable. Right tibia-fibula nonunion, present on admission, Status post ORIF revision 08/03/[address] Camacho. Nonweightbearing, will need rehabilitation. Continue oral opioids as needed for pain. C. difficile diarrhea- improving/no further loose stools. continue oral Flagyl , total 14 days, started 08/04. VIMAL, nonoliguric (due to diuresis and GI losses) - improved. Cr 1.02 now. Hypokalemia due to GI losses - resolved. Hypomagnesemia - resolved. Liver cirrhosis, Hepatic encephalopathy with hyperammonemia- lactulose held 2/ 2 recent diarrhea and ongoing hypokalemia. cont rifaximin. now compensated. monitor mental status. Bilateral lower extremity edema-likely secondary to cirrhosis, improving/stable. Hypertension- continue propranolol and Aldactone. Mild shortness of breath -improved. cxr 08/04 with atelectasis. continue duonebs and O2 prn. symptoms in part due to anemia. DVT prophylaxis: SCDs, pharmacological prophylaxis contraindicated awaiting authorization for [facility] Justin Thompson MD Aug 11, 2016 11:43
[2016-08-11 12:00] VITALS: BP 134/74; PULSE 65; RESP 16; TEMP 96.8; O2SAT 94
[2016-08-11 16:00] VITALS: BP 145/80; PULSE 67; RESP 16; TEMP 97.4; O2SAT 93
[2016-08-11 20:00] VITALS: BP 155/80; PULSE 86; RESP 20; TEMP 98.7; O2SAT 96
[2016-08-11] MEDS: traZODone HCL 50 MG TAB PO SCH (21:54)
[2016-08-12 00:26] VITALS: BP 162/77; PULSE 76; RESP 20; TEMP 98.7; O2SAT 95
[2016-08-12] MEDS: metroNIDAZOLE 500 MG TAB PO SCH ×3 (04:18→21:01)
[2016-08-12] MEDS: SUCRALFATE 1 GM/10 ML CUP PO SCH ×4 (04:18→21:02)
[2016-08-12 08:00] VITALS: BP 128/61; PULSE 70; RESP 17; TEMP 98.8; O2SAT 92
[2016-08-12] MEDS: PROPRANOLOL HCL 20 MG TAB PO SCH ×3 (08:46→17:29)
[2016-08-12] MEDS: FOLIC ACID 1 MG TAB PO SCH (08:46)
[2016-08-12] MEDS: SPIRONOLACTONE 25 MG TAB PO SCH ×2 (08:46→21:01)
[2016-08-12] MEDS: PANTOPRAZOLE SOD 40 MG DELAYED RELEASE TAB PO SCH ×2 (08:46→21:01)
[2016-08-12] MEDS: SODIUM CHLORIDE 0.9% FLUSH 5 ML FLUSH IVF SCH ×2 (08:47→21:02)
[2016-08-12] MEDS: CALCIUM/VITAMIN D 250 MG/125 U TAB PO SCH ×3 (08:47→17:29)
[2016-08-12] MEDS: RIFAXIMIN 550 MG TAB PO SCH ×2 (08:47→21:01)
[2016-08-12 12:00] VITALS: BP_SYST 131; BP_SYST 157; BP_DIAS 62; BP_DIAS 75; PULSE 67; PULSE 88; RESP 17; TEMP 97.8; TEMP 99.4; O2SAT 94; O2SAT 95
--- NOTE | 2016-08-12 14:33 | HHI.PR ---
Subjective Remarks no complains voiding well some progress with therapy Objective Vitals Vital Signs Date Time Temp Pulse Resp B/P Pulse Ox O2 Delivery O2 Flow Rate FiO2 08/12/16 12:00 99.4 88 17 131/62 95 08/12/16 12:00 97.8 67 17 157/75 94 08/12/16 11:14 18 08/12/16 08:00 98.8 70 17 128/61 92 08/12/16 00:26 98.7 76 20 162/77 95 08/11/16 20:00 98.7 86 20 155/80 96 08/11/16 16:00 97.4 67 16 145/80 93 I/O 08/11/16 08/11/16 08/11/16 08/12/16 08/12/16 08/12/16 07:00 15:00 23:00 07:00 15:00 23:00 Intake Total 360 ml 240 ml 120 ml 120 ml Output Total 1000 ml 600 ml 300 ml 1500 ml Balance -640 ml -360 ml -180 ml -1380 ml Intake Oral 360 ml 240 ml 120 ml 120 ml IV Total 0 ml 0 ml Output Urine Total 1000 ml 600 ml 300 ml 1500 ml # Bowel Movements 0 0 0 0 Result Diagram: 08/08/16 0411 08/08/16 0326 Imaging Last Impressions Chest X-Ray 08/04/16 0000 Signed Impressions: Service Date/Time: Thursday, August 04, 2016 14:39 - CONCLUSION: Bilateral airspace disease characteristic of atelectasis. No evidence of consolidating infiltrate. No evidence of significant congestion. Edis Plascencia MD Ankle X-Ray 08/03/16 0000 Signed Impressions: Service Date/Time: Wednesday, August 03, 2016 16:54 - CONCLUSION: Status post ORIF of distal right tibial and fibular fractures resulting in satisfactory anatomic alignment. Edis Plascencia MD Spleen Ultrasound 07/28/16 0000 Signed Impressions: Service Date/Time: Thursday, July 28, 2016 15:26 - CONCLUSION: Normal size spleen. Ramos Lo MD FACR Objective Remarks GENERAL: awake and alert, oriented x 3 HEAD: Normocephalic. EYES: No scleral icterus. No injection or drainage. NECK: Supple, trachea midline. No JVD or lymphadenopathy. CARDIOVASCULAR: Regular rate and rhythm without murmurs, gallops, or rubs. RESPIRATORY: Breath sounds equal bilaterally. No accessory muscle use. GASTROINTESTINAL: Abdomen soft, non-tender, nondistended. Right lower extremity- with cast in place. moves toes spontaneously Procedures EGD: Showed gastric antral ulcer 08/03 removal of tib-fib hardware with ORIF A/P Problem List: (1) Hepatitis C ICD Code: B19.20 Status: Chronic (2) Cirrhosis of liver ICD Code: K74.60 Status: Chronic (3) Acute renal failure ICD Code: N17.9 Status: Acute (4) Fracture of distal end of tibia with fibula ICD Code: S82.309A Status: Chronic (5) Anemia ICD Code: D64.9 Status: Acute (6) Hypokalemia ICD Code: E87.6 Status: Acute (7) Thrombocytopenia ICD Code: D69.6 Status: Acute (8) Clostridium difficile colitis ICD Code: A04.7 Status: Acute (9) Gastric ulcer ICD Code: K25.9 Status: Acute (10) Pancytopenia ICD Code: D61.818 Status: Acute (11) Hepatic encephalopathy ICD Code: K72.90 Status: Acute Assessment and Plan 55-year-old female Symptomatic iron deficiency anemia-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 s/p multiple transfusion, S/p EGD 07/29/16, showed single non bleeding ulcer 3-7 mm in size gastric antrum. Continue Protonix, S/p iron sucrose intravenous. Hb stable. Thrombocytopenia-no obvious bleeding- Likely secondary to hypersplenism per hematology. s/p transfusion prior to surgery. Thrombocytopenia stable. Right tibia-fibula nonunion, present on admission, Status post ORIF revision 08/03/[address] Camacho. Nonweightbearing, will need rehabilitation. Continue oral opioids as needed for pain. C. difficile diarrhea- improving/no further loose stools. continue oral Flagyl , total 14 days, started 08/04. VIMAL, nonoliguric (due to diuresis and GI losses) - improved. Cr 1.02 now. Hypokalemia due to GI losses - resolved. Hypomagnesemia - resolved. Liver cirrhosis, Hepatic encephalopathy with hyperammonemia- lactulose held 2/ 2 recent diarrhea and ongoing hypokalemia. cont rifaximin. now compensated. monitor mental status. Bilateral lower extremity edema-likely secondary to cirrhosis, improving/stable. Hypertension- continue propranolol and Aldactone. Mild shortness of breath -improved. cxr 08/04 with atelectasis. continue duonebs and O2 prn. symptoms in part due to anemia. DVT prophylaxis: SCDs, pharmacological prophylaxis contraindicated medicaid no SNF benefits- came senior technical project manager assisting Justin Thompson MD Aug 12, 2016 14:33
[2016-08-12 16:00] VITALS: BP 143/84; PULSE 66; RESP 18; TEMP 97.6; O2SAT 97
[2016-08-12 20:00] VITALS: BP 172/76; PULSE 64; RESP 18; TEMP 97.3; O2SAT 96
[2016-08-12] MEDS: traZODone HCL 50 MG TAB PO SCH (21:01)
[2016-08-13] VITALS: BP 127/71; PULSE 66; RESP 16; TEMP 98.2; O2SAT 96
[2016-08-13] MEDS: metroNIDAZOLE 500 MG TAB PO SCH ×3 (05:15→21:52)
[2016-08-13] MEDS: SUCRALFATE 1 GM/10 ML CUP PO SCH ×4 (05:15→21:52)
--- NOTE | 2016-08-13 07:12 | PD.ORT.PN ---
Subjective Subjective Remarks Patient relatively comfortable. Status post revision open reduction internal fixation right distal tibia and fibular fractures with iliac crest bone graft. Objective Vitals Vital Signs Date Time Temp Pulse Resp B/P Pulse Ox O2 Delivery O2 Flow Rate FiO2 08/13/16 00:00 98.2 66 16 127/71 96 08/12/16 20:00 97.3 64 18 172/76 96 08/12/16 16:58 18 08/12/16 16:00 97.6 66 18 143/84 97 08/12/16 12:00 99.4 88 17 131/62 95 08/12/16 12:00 97.8 67 17 157/75 94 08/12/16 08:00 98.8 70 17 128/61 92 I/O 08/12/16 08/12/16 08/12/16 08/13/16 08/13/16 08/13/16 07:00 15:00 23:00 07:00 15:00 23:00 Intake Total 120 ml 450 ml 320 ml 120 ml Output Total 1500 ml 2 ml 450 ml Balance -1380 ml 448 ml 320 ml -330 ml Intake Oral 120 ml 450 ml 320 ml 120 ml IV Total 0 ml 0 ml Output Urine Total 1500 ml 2 ml 450 ml # Voids 1 # Bowel Movements 0 1 0 0 Imaging Last 72 hours Impressions Ankle X-Ray 08/03/16 0000 Signed Impressions: Service Date/Time: Wednesday, August 03, 2016 16:54 - CONCLUSION: Status post ORIF of distal right tibial and fibular fractures resulting in satisfactory anatomic alignment. Edis Plascencia MD Objective Remarks Right lower extremity: Iliac crest bone graft site with mild drainage. Clean Dressing intact. No pain with hip or knee range of motion. Splint intact over ankle-- clean dry and intact. distally neurovascularly intact Assessment & Plan Assessment and Plan 1) Right Distal Tibia nonunion POD 7 with removal of hardware, open reduction internal fixation, stem cells and iliac crest bone graft Strict nonweightbearing right lower extremity Elevation Maintain splint at all times--do not change daily dressing changes of iliac crest bone graft site with Xeroform and Primapore Incentive spirometry Lovenox Patient resides at a group home house and at this point does not have adequate support outside of the hospital-- placement is going to be difficult German Camacho MD Aug 13, 2016 07:12
[2016-08-13] MEDS: RIFAXIMIN 550 MG TAB PO SCH ×2 (07:53→21:52)
[2016-08-13] MEDS: SODIUM CHLORIDE 0.9% FLUSH 5 ML FLUSH IVF SCH ×2 (07:53→21:53)
[2016-08-13] MEDS: PANTOPRAZOLE SOD 40 MG DELAYED RELEASE TAB PO SCH ×2 (07:54→21:52)
[2016-08-13] MEDS: FOLIC ACID 1 MG TAB PO SCH (07:54)
[2016-08-13] MEDS: SPIRONOLACTONE 25 MG TAB PO SCH ×2 (07:54→21:53)
[2016-08-13] MEDS: PROPRANOLOL HCL 20 MG TAB PO SCH ×3 (07:54→17:09)
[2016-08-13] MEDS: CALCIUM/VITAMIN D 250 MG/125 U TAB PO SCH ×3 (07:54→17:09)
[2016-08-13 08:00] VITALS: BP 127/75; PULSE 68; RESP 16; TEMP 97.3; O2SAT 94
[2016-08-13 12:00] VITALS: BP 158/82; PULSE 76; RESP 17; TEMP 98; O2SAT 96
--- NOTE | 2016-08-13 12:12 | HHI.PR ---
Subjective Remarks no complaints Objective Vitals Vital Signs Date Time Temp Pulse Resp B/P Pulse Ox O2 Delivery O2 Flow Rate FiO2 08/13/16 12:00 98.0 76 17 158/82 96 08/13/16 08:00 97.3 68 16 127/75 94 08/13/16 00:00 98.2 66 16 127/71 96 08/12/16 20:00 97.3 64 18 172/76 96 08/12/16 16:58 18 08/12/16 16:00 97.6 66 18 143/84 97 I/O 08/12/16 08/12/16 08/12/16 08/13/16 08/13/16 08/13/16 07:00 15:00 23:00 07:00 15:00 23:00 Intake Total 120 ml 450 ml 320 ml 120 ml Output Total 1500 ml 2 ml 450 ml Balance -1380 ml 448 ml 320 ml -330 ml Intake Oral 120 ml 450 ml 320 ml 120 ml IV Total 0 ml 0 ml Output Urine Total 1500 ml 2 ml 450 ml # Voids 1 # Bowel Movements 0 1 0 0 Imaging Last Impressions Chest X-Ray 08/04/16 0000 Signed Impressions: Service Date/Time: Thursday, August 04, 2016 14:39 - CONCLUSION: Bilateral airspace disease characteristic of atelectasis. No evidence of consolidating infiltrate. No evidence of significant congestion. Edis Plascencia MD Ankle X-Ray 08/03/16 0000 Signed Impressions: Service Date/Time: Wednesday, August 03, 2016 16:54 - CONCLUSION: Status post ORIF of distal right tibial and fibular fractures resulting in satisfactory anatomic alignment. Edis Plascencia MD Spleen Ultrasound 07/28/16 0000 Signed Impressions: Service Date/Time: Thursday, July 28, 2016 15:26 - CONCLUSION: Normal size spleen. Ramos Lo MD FACR Objective Remarks GENERAL: awake and alert, oriented x 3 HEAD: Normocephalic. EYES: No scleral icterus. No injection or drainage. NECK: Supple, trachea midline. No JVD or lymphadenopathy. CARDIOVASCULAR: Regular rate and rhythm without murmurs, gallops, or rubs. RESPIRATORY: Breath sounds equal bilaterally. No accessory muscle use. GASTROINTESTINAL: Abdomen soft, non-tender, nondistended. Right lower extremity- with cast in place. moves toes spontaneously Procedures EGD: Showed gastric antral ulcer 08/03 removal of tib-fib hardware with ORIF A/P Problem List: (1) Hepatitis C ICD Code: B19.20 Status: Chronic (2) Cirrhosis of liver ICD Code: K74.60 Status: Chronic (3) Acute renal failure ICD Code: N17.9 Status: Acute (4) Fracture of distal end of tibia with fibula ICD Code: S82.309A Status: Chronic (5) Anemia ICD Code: D64.9 Status: Acute (6) Hypokalemia ICD Code: E87.6 Status: Acute (7) Thrombocytopenia ICD Code: D69.6 Status: Acute (8) Clostridium difficile colitis ICD Code: A04.7 Status: Acute (9) Gastric ulcer ICD Code: K25.9 Status: Acute (10) Pancytopenia ICD Code: D61.818 Status: Acute (11) Hepatic encephalopathy ICD Code: K72.90 Status: Acute Assessment and Plan 55-year-old female Symptomatic iron deficiency anemia-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 s/p multiple transfusion, S/p EGD 07/29/16, showed single non bleeding ulcer 3-7 mm in size gastric antrum. Continue Protonix, S/p iron sucrose intravenous. Hb stable. Thrombocytopenia-no obvious bleeding- Likely secondary to hypersplenism per hematology. s/p transfusion prior to surgery. Thrombocytopenia stable. Right tibia-fibula nonunion, present on admission, Status post ORIF revision 08/03/[address] Camacho. Nonweightbearing, will need rehabilitation. Continue oral opioids as needed for pain. C. difficile diarrhea- improving/no further loose stools. continue oral Flagyl , total 14 days, started 08/04. VIMAL, nonoliguric (due to diuresis and GI losses) - improved. Cr 1.02 now. Hypokalemia due to GI losses - resolved. Hypomagnesemia - resolved. Liver cirrhosis, Hepatic encephalopathy with hyperammonemia- lactulose held 2/ 2 recent diarrhea and ongoing hypokalemia. cont rifaximin. now compensated. monitor mental status. Bilateral lower extremity edema-likely secondary to cirrhosis, improving/stable. Hypertension- continue propranolol and Aldactone. Mild shortness of breath -improved. cxr 08/04 with atelectasis. continue duonebs and O2 prn. symptoms in part due to anemia. DVT prophylaxis: SCDs, pharmacological prophylaxis contraindicated medicaid no SNF benefits- came qc manager assisting d/w her that we may need to send her home - no accepting facility with PT- patient very motivated Justin Thompson MD Aug 13, 2016 12:12
[2016-08-13 16:00] VITALS: BP 145/74; PULSE 70; RESP 18; TEMP 96.1; O2SAT 98
[2016-08-13 20:00] VITALS: BP 133/69; PULSE 71; RESP 18; TEMP 97.6; O2SAT 96
[2016-08-13] MEDS: traZODone HCL 50 MG TAB PO SCH (21:52)
[2016-08-14] VITALS: BP 128/66; PULSE 71; RESP 18; TEMP 98.9; O2SAT 94
[2016-08-14] MEDS: metroNIDAZOLE 500 MG TAB PO SCH ×3 (05:20→21:39)
[2016-08-14] MEDS: SUCRALFATE 1 GM/10 ML CUP PO SCH ×4 (05:20→21:39)
[2016-08-14 08:00] VITALS: BP 144/65; PULSE 77; RESP 17; TEMP 98.8; O2SAT 95
[2016-08-14] MEDS: SPIRONOLACTONE 25 MG TAB PO SCH ×2 (09:02→21:39)
[2016-08-14] MEDS: SODIUM CHLORIDE 0.9% FLUSH 5 ML FLUSH IVF SCH ×2 (09:03→21:40)
[2016-08-14] MEDS: FOLIC ACID 1 MG TAB PO SCH (09:03)
[2016-08-14] MEDS: PROPRANOLOL HCL 20 MG TAB PO SCH ×3 (09:03→16:12)
[2016-08-14] MEDS: PANTOPRAZOLE SOD 40 MG DELAYED RELEASE TAB PO SCH ×2 (09:03→21:39)
[2016-08-14] MEDS: CALCIUM/VITAMIN D 250 MG/125 U TAB PO SCH ×3 (09:03→16:12)
[2016-08-14] MEDS: RIFAXIMIN 550 MG TAB PO SCH ×2 (09:03→21:39)
[2016-08-14 12:00] VITALS: BP 130/66; PULSE 90; RESP 16; TEMP 98.6; O2SAT 96
--- NOTE | 2016-08-14 12:36 | HHI.PR ---
Subjective Remarks patient no complains good po Objective Vitals Vital Signs Date Time Temp Pulse Resp B/P Pulse Ox O2 Delivery O2 Flow Rate FiO2 08/14/16 12:00 98.6 90 16 130/66 96 08/14/16 08:00 98.8 77 17 144/65 95 08/14/16 00:00 98.9 71 18 128/66 94 08/13/16 20:00 97.6 71 18 133/69 96 08/13/16 16:00 96.1 70 18 145/74 98 I/O 08/13/16 08/13/16 08/13/16 08/14/16 08/14/16 08/14/16 07:00 15:00 23:00 07:00 15:00 23:00 Intake Total 120 ml 720 ml 480 ml 120 ml Output Total 450 ml 200 ml 450 ml Balance -330 ml 720 ml 280 ml -330 ml Intake Oral 120 ml 720 ml 480 ml 120 ml IV Total 0 ml 0 ml 0 ml Output Urine Total 450 ml 200 ml 450 ml # Voids 1 2 # Bowel Movements 0 1 1 0 Objective Remarks GENERAL: awake and alert, oriented x 3 HEAD: Normocephalic. EYES: No scleral icterus. No injection or drainage. NECK: Supple, trachea midline. No JVD or lymphadenopathy. CARDIOVASCULAR: Regular rate and rhythm without murmurs, gallops, or rubs. RESPIRATORY: Breath sounds equal bilaterally. No accessory muscle use. GASTROINTESTINAL: Abdomen soft, non-tender, nondistended. Right lower extremity- with soft cast in place. moves toes spontaneously Procedures EGD: Showed gastric antral ulcer 08/03 removal of tib-fib hardware with ORIF A/P Problem List: (1) Hepatitis C ICD Code: B19.20 Status: Chronic (2) Cirrhosis of liver ICD Code: K74.60 Status: Chronic (3) Acute renal failure ICD Code: N17.9 Status: Acute (4) Fracture of distal end of tibia with fibula ICD Code: S82.309A Status: Chronic (5) Anemia ICD Code: D64.9 Status: Acute (6) Hypokalemia ICD Code: E87.6 Status: Acute (7) Thrombocytopenia ICD Code: D69.6 Status: Acute (8) Clostridium difficile colitis ICD Code: A04.7 Status: Acute (9) Gastric ulcer ICD Code: K25.9 Status: Acute (10) Pancytopenia ICD Code: D61.818 Status: Acute (11) Hepatic encephalopathy ICD Code: K72.90 Status: Acute Assessment and Plan 55-year-old female 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 s/p multiple transfusion, S/p EGD 07/29/16, showed single non bleeding ulcer 3-7 mm in size gastric antrum. Continue Protonix, S/p iron sucrose intravenous. Hb stable. Thrombocytopenia-no obvious bleeding- Likely secondary to hypersplenism per hematology. s/p transfusion prior to surgery. Thrombocytopenia stable. Right tibia-fibula nonunion, Status post ORIF revision 08/03/[address] Camacho. Nonweightbearing, will need rehabilitation. Continue oral opioids as needed for pain. C. difficile diarrhea- improving/no further loose stools. continue oral Flagyl , total 14 days, started 08/04. VIMAL, nonoliguric (due to diuresis and GI losses) - improved. Cr 1.02 now. Hypokalemia due to GI losses - resolved. Hypomagnesemia - resolved. Liver cirrhosis, Hepatic encephalopathy- resolved with hyperammonemia- lactulose held 2/2 recent diarrhea and ongoing hypokalemia. cont rifaximin. now compensated. monitor mental status. Bilateral lower extremity edema-likely secondary to cirrhosis, improving/stable. Hypertension- continue propranolol and Aldactone. Mild shortness of breath -improved. cxr 08/04 with atelectasis. continue duonebs and O2 prn. symptoms in part due to anemia. DVT prophylaxis: SCDs, pharmacological prophylaxis contraindicated medicaid no SNF benefits- came case manager specialist assisting 08/13 d/w her that we may need to send her home - no accepting facility with PT- patient very motivated Justin Thompson MD Aug 14, 2016 12:36
[2016-08-14 16:00] VITALS: BP 129/75; PULSE 65; RESP 16; TEMP 98.6; O2SAT 94
[2016-08-14 20:00] VITALS: BP 153/74; PULSE 74; RESP 20; TEMP 98.5; O2SAT 92
[2016-08-14] MEDS: traZODone HCL 50 MG TAB PO SCH (21:39)
[2016-08-15 00:18] VITALS: BP 133/77; PULSE 76; RESP 20; TEMP 98.6; O2SAT 92
[2016-08-15] MEDS: SUCRALFATE 1 GM/10 ML CUP PO SCH ×4 (05:03→20:12)
[2016-08-15] MEDS: metroNIDAZOLE 500 MG TAB PO SCH ×3 (05:03→20:12)
[2016-08-15 08:00] VITALS: BP 125/68; PULSE 67; RESP 17; TEMP 98.3; O2SAT 93
[2016-08-15] MEDS: RIFAXIMIN 550 MG TAB PO SCH ×2 (08:09→20:12)
[2016-08-15] MEDS: PANTOPRAZOLE SOD 40 MG DELAYED RELEASE TAB PO SCH ×2 (08:09→20:12)
[2016-08-15] MEDS: PROPRANOLOL HCL 20 MG TAB PO SCH ×3 (08:09→16:23)
[2016-08-15] MEDS: CALCIUM/VITAMIN D 250 MG/125 U TAB PO SCH ×3 (08:09→16:23)
[2016-08-15] MEDS: SPIRONOLACTONE 25 MG TAB PO SCH ×2 (08:09→20:12)
[2016-08-15] MEDS: FOLIC ACID 1 MG TAB PO SCH (08:09)
[2016-08-15] MEDS: SODIUM CHLORIDE 0.9% FLUSH 5 ML FLUSH IVF SCH ×2 (08:09→20:12)
--- NOTE | 2016-08-15 10:20 | HHI.PR ---
Subjective Remarks no complains, states had a BM Objective Vitals Vital Signs Date Time Temp Pulse Resp B/P Pulse Ox O2 Delivery O2 Flow Rate FiO2 08/15/16 08:00 98.3 67 17 125/68 93 08/15/16 00:18 98.6 76 20 133/77 92 08/14/16 20:00 98.5 74 20 153/74 92 08/14/16 17:18 20 08/14/16 16:00 98.6 65 16 129/75 94 08/14/16 12:00 98.6 90 16 130/66 96 I/O 08/14/16 08/14/16 08/14/16 08/15/16 08/15/16 08/15/16 06:59 14:59 22:59 06:59 14:59 22:59 Intake Total 120 ml 480 ml 240 ml 240 ml Output Total 450 ml 800 ml 600 ml 1450 ml Balance -330 ml -320 ml -360 ml -1210 ml Intake Oral 120 ml 480 ml 240 ml 240 ml IV Total 0 ml 0 ml Output Urine Total 450 ml 800 ml 600 ml 1450 ml # Bowel Movements 0 1 0 0 Objective Remarks GENERAL: awake and alert, oriented x 3 HEAD: Normocephalic. EYES: No scleral icterus. No injection or drainage. NECK: Supple, trachea midline. No JVD or lymphadenopathy. CARDIOVASCULAR: Regular rate and rhythm without murmurs, gallops, or rubs. RESPIRATORY: Breath sounds equal bilaterally. No accessory muscle use. GASTROINTESTINAL: Abdomen soft, non-tender, nondistended. Right lower extremity- with soft cast in place. moves toes spontaneously, Procedures EGD: Showed gastric antral ulcer 08/03 removal of tib-fib hardware with ORIF A/P Problem List: (1) Hepatitis C ICD Code: B19.20 Status: Chronic (2) Cirrhosis of liver ICD Code: K74.60 Status: Chronic (3) Acute renal failure ICD Code: N17.9 Status: Acute (4) Fracture of distal end of tibia with fibula ICD Code: S82.309A Status: Chronic (5) Anemia ICD Code: D64.9 Status: Acute (6) Hypokalemia ICD Code: E87.6 Status: Acute (7) Thrombocytopenia ICD Code: D69.6 Status: Acute (8) Clostridium difficile colitis ICD Code: A04.7 Status: Acute (9) Gastric ulcer ICD Code: K25.9 Status: Acute (10) Pancytopenia ICD Code: D61.818 Status: Acute (11) Hepatic encephalopathy ICD Code: K72.90 Status: Acute Assessment and Plan 55-year-old female Symptomatic iron deficiency anemia-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 s/p multiple transfusion, S/p EGD 07/29/16, showed single non bleeding ulcer 3-7 mm in size gastric antrum. Continue Protonix, S/p iron sucrose intravenous. Hb stable. Thrombocytopenia-no obvious bleeding- Likely secondary to hypersplenism per hematology. s/p transfusion prior to surgery. Thrombocytopenia stable. Right tibia-fibula nonunion, Status post ORIF revision 08/03/[address] Camacho. Nonweightbearing, will need rehabilitation. Continue oral opioids as needed for pain. C. difficile diarrhea- improving/no further loose stools. continue oral Flagyl , total 14 days, started 08/04. VIMAL, nonoliguric (due to diuresis and GI losses) - improved. Hypokalemia due to GI losses - resolved. recheck BMP periodically Hypomagnesemia - resolved. Liver cirrhosis, Hepatic encephalopathy- resolved with hyperammonemia- lactulose held 2/2 recent diarrhea and ongoing hypokalemia. cont rifaximin. now compensated. monitor mental status. Bilateral lower extremity edema-likely secondary to cirrhosis, improving/ stable.on aldactone Hypertension- continue propranolol and Aldactone. Mild shortness of breath -improved. cxr 08/04 with atelectasis. continue duonebs and O2 prn. symptoms in part due to anemia. DVT prophylaxis: SCDs, pharmacological prophylaxis contraindicated medicaid no SNF benefits- came nutrition manager assisting 08/13 d/w her that we may need to send her home - no accepting facility with PT- patient very motivated Justin Thompson MD Aug 15, 2016 10:20
[2016-08-15 12:00] VITALS: BP 127/68; PULSE 68; RESP 16; TEMP 98.6; O2SAT 94
[2016-08-15 16:00] VITALS: BP 128/64; PULSE 68; RESP 17; TEMP 98.6; O2SAT 94
[2016-08-15 20:00] VITALS: BP 156/78; PULSE 66; RESP 21; TEMP 97; O2SAT 96
[2016-08-15] MEDS: traZODone HCL 50 MG TAB PO SCH (20:12)
[2016-08-16] VITALS: BP 121/75; PULSE 69; RESP 20; TEMP 98.5; O2SAT 93
[2016-08-16] MEDS: metroNIDAZOLE 500 MG TAB PO SCH ×3 (05:49→21:22)
[2016-08-16] MEDS: SUCRALFATE 1 GM/10 ML CUP PO SCH ×4 (05:49→21:22)
[2016-08-16 08:30] VITALS: BP_SYST 123; BP_SYST 143; BP_DIAS 72; BP_DIAS 76; PULSE 62; PULSE 73; RESP 16; RESP 18; TEMP 97.4; TEMP 99.3; O2SAT 95; O2SAT 96
[2016-08-16] MEDS: SODIUM CHLORIDE 0.9% FLUSH 5 ML FLUSH IVF SCH ×2 (08:34→21:22)
[2016-08-16] MEDS: FOLIC ACID 1 MG TAB PO SCH (08:34)
[2016-08-16] MEDS: RIFAXIMIN 550 MG TAB PO SCH ×2 (08:34→21:22)
[2016-08-16] MEDS: PANTOPRAZOLE SOD 40 MG DELAYED RELEASE TAB PO SCH ×2 (08:34→21:23)
[2016-08-16] MEDS: CALCIUM/VITAMIN D 250 MG/125 U TAB PO SCH ×3 (08:34→18:05)
[2016-08-16] MEDS: SPIRONOLACTONE 25 MG TAB PO SCH ×2 (08:34→21:22)
[2016-08-16] MEDS: PROPRANOLOL HCL 20 MG TAB PO SCH ×3 (08:35→18:05)
[2016-08-16 12:51] VITALS: BP 132/71; PULSE 132; RESP 18; TEMP 98.2; O2SAT 95
--- NOTE | 2016-08-16 14:18 | HHI.PR ---
Subjective Remarks Follow up anemia, C. difficile diarrhea, acute kidney injury. The patient states that she doesn't feel very good today. Feels tired. Significant swelling of the left leg. Denies chest pain or dyspnea. Objective Vitals Vital Signs Date Time Temp Pulse Resp B/P Pulse Ox O2 Delivery O2 Flow Rate FiO2 08/16/16 12:51 98.2 132 18 132/71 95 08/16/16 08:30 99.3 73 18 143/72 96 08/16/16 00:00 98.5 69 20 121/75 93 08/15/16 20:00 97.0 66 21 156/78 96 08/15/16 17:23 20 08/15/16 16:00 98.6 68 17 128/64 94 I/O 08/15/16 08/15/16 08/15/16 08/16/16 08/16/16 08/16/16 06:59 14:59 22:59 06:59 14:59 22:59 Intake Total 240 ml 480 ml 240 ml 120 ml Output Total 1450 ml 900 ml 600 ml Balance -1210 ml -420 ml 240 ml -480 ml Intake Oral 240 ml 480 ml 240 ml 120 ml IV Total 0 ml Output Urine Total 1450 ml 900 ml 600 ml # Voids 2 2 1 # Bowel Movements 0 1 0 0 Imaging Last Impressions Chest X-Ray 08/04/16 0000 Signed Impressions: Service Date/Time: Thursday, August 04, 2016 14:39 - CONCLUSION: Bilateral airspace disease characteristic of atelectasis. No evidence of consolidating infiltrate. No evidence of significant congestion. Edis Plascencia MD Ankle X-Ray 08/03/16 0000 Signed Impressions: Service Date/Time: Wednesday, August 03, 2016 16:54 - CONCLUSION: Status post ORIF of distal right tibial and fibular fractures resulting in satisfactory anatomic alignment. Edis Plascencia MD Spleen Ultrasound 07/28/16 0000 Signed Impressions: Service Date/Time: Thursday, July 28, 2016 15:26 - CONCLUSION: Normal size spleen. Ramos Lo MD FACR Objective Remarks General: No acute distress. Sitting up in a chair. Heart: Regular rate and rhythm. No murmur. Lungs: Clear to auscultation bilaterally. No wheezes, rales, or rhonchi. Breathing is nonlabored. Abdomen: Soft, nontender, nondistended. Extremities: 2+ left lower extremity edema up to the knee. Right lower leg in a splint. Psych: Alert and oriented. Procedures EGD: Showed gastric antral ulcer 08/03 removal of tib-fib hardware with ORIF Urinary Catheter: No Vascular Central Line Catheter: No A/P Problem List: (1) Hepatitis C ICD Code: B19.20 Status: Chronic (2) Cirrhosis of liver ICD Code: K74.60 Status: Chronic (3) Acute renal failure ICD Code: N17.9 Status: Acute (4) Fracture of distal end of tibia with fibula ICD Code: S82.309A Status: Chronic (5) Anemia ICD Code: D64.9 Status: Acute (6) Hypokalemia ICD Code: E87.6 Status: Acute (7) Thrombocytopenia ICD Code: D69.6 Status: Acute (8) Clostridium difficile colitis ICD Code: A04.7 Status: Acute (9) Gastric ulcer ICD Code: K25.9 Status: Acute (10) Pancytopenia ICD Code: D61.818 Status: Acute (11) Hepatic encephalopathy ICD Code: K72.90 Status: Acute Assessment and Plan 1. Symptomatic iron deficiency anemia: Possibly secondary to hypersplenism. Status post multiple transfusions. EGD on 07/29/16 showed a single nonbleeding ulcer in the gastric antrum. Continue Protonix. She has received iron sucrose IV. Repeat labs. 2. Thrombocytopenia: Stable. No bleeding at this time. Likely secondary to hypersplenism. Appreciate hematology recommendations. 3. Right tibia/fibula nonunion: Status post ORIF revision on 08/03/16. Nonweightbearing. Will need rehabilitation after discharge. Continue oral pain medications. 4. C. difficile diarrhea: Improving. Continue oral Flagyl for 14 days total. Stop date 08/18/16. 5. Acute kidney injury: Nonoliguric. Secondary to diuresis, GI loss. BUN/ creatinine improving. 6. Hypokalemia: Secondary to GI loss. Resolved. 7. Hypomagnesemia: Resolved. 8. Liver cirrhosis, hepatic encephalopathy: Resolved. Lactulose on hold secondary to diarrhea, hypokalemia. Continue rifaximin. 9. Bilateral lower extremity edema: Edema has increased on the left lower extremity. Check stat ultrasound to rule out DVT. 10. Hypertension: Continue propranolol, Aldactone. 11. Dyspnea: Improved. Continue duo nebs, supplemental oxygen. 12. DVT prophylaxis: SCDs. Avoid chemical prophylaxis secondary to anemia, thrombocytopenia. Discharge Planning Patient has no assisted benefit with her insurance coverage. stone polisher machine assisting with discharge planning. Patient is aware that we may need to discharge her home as there is no accepting facility at this time. She will need continued physical therapy until she is safe for discharge home. Isaac Ng MD Aug 16, 2016 14:18
[2016-08-16 16:30] VITALS: BP 150/78; PULSE 67; RESP 18; TEMP 97.1; O2SAT 96
[2016-08-16 17:15] LABS: AUTOMATED NEUTROPHIL # 1.9 TH/MM3 (1.8-7.7); BASOPHIL % 1.2 % (0.0-2.0); EOSINOPHIL # 0.2 TH/MM3 (0-0.4); HEMATOCRIT 30.3 % (35.0-46.0); LYMPH % 28.3 % (9.0-44.0); LYMPHOCYTE # 1.1 TH/MM3 (1.0-4.8); MEAN CELL VOLUME 90.4 FL (80.0-100.0); MEAN CORPUSCULAR HEMOGLOBIN 30.1 PG (27.0-34.0); MEAN CORPUSCULAR HGB CONC 33.3 % (32.0-36.0); NEUT % 50.5 % (16.0-70.0); PLATELET COUNT 98 TH/MM3 (150-450); RED BLOOD COUNT 3.35 MIL/MM3 (4.00-5.30); RED CELL DISTRIBUTION WIDTH 18.8 % (11.6-17.2); WHITE BLOOD COUNT 3.7 TH/MM3 (4.0-11.0)
[2016-08-16 17:16] LABS: HEMO FLAGS DIFF FINAL
--- NOTE | 2016-08-16 17:39 | RADRPT ---
EXAM DATE/TIME: 08/16/2016 16:40 [facility] COMPARISON: No previous studies available for comparison. INDICATIONS : Left leg swelling. MEDICAL HISTORY : Hypertension. Hepatitis C. Cirrhosis. SURGICAL HISTORY : Orthopaedic surgery right leg. ENCOUNTER: Initial ACUITY: 1 day PAIN SCORE: 5/10 LOCATION: Left leg. TECHNIQUE: Venous ultrasound of the leg was performed from the inguinal ligament to the proximal calf. Real-layton e, color Doppler and spectral tracing, compression and augmentation techniques were used. FINDINGS: There is normal compressibility of the deep venous system from the inguinal region to the proximal ca lf. No echogenic clot is seen in the lumen of the common femoral, femoral, popliteal, and posterior tibial veins. There is a normal response of the venous system to proximal and distal augmentation an d respiration. CONCLUSION: Normal examination. Tony Moya MD on August 16, 2016 at 17:37 Board Certified Radiologist. This report was verified electronically.
[2016-08-16 17:43] LABS: BICARBONATE 27.5 MEQ/L (21.0-32.0); POTASSIUM 3.4 MEQ/L (3.5-5.1)
[2016-08-16 20:00] VITALS: BP 147/85; PULSE 71; RESP 16; TEMP 98; O2SAT 95
[2016-08-16] MEDS: traZODone HCL 50 MG TAB PO SCH (21:22)
[2016-08-17] VITALS: BP 132/76; PULSE 69; RESP 16; TEMP 97.9; O2SAT 92
[2016-08-17 05:47] LABS: AUTOMATED NEUTROPHIL # 1.7 TH/MM3 (1.8-7.7); BASOPHIL # 0.1 TH/MM3 (0-0.2); BASOPHIL % 2.2 % (0.0-2.0); EOSINOPHIL # 0.3 TH/MM3 (0-0.4); EOSINOPHIL % 8.1 % (0.0-4.0); HEMATOCRIT 30.4 % (35.0-46.0); LYMPHOCYTE # 1.1 TH/MM3 (1.0-4.8); MEAN CELL VOLUME 90.7 FL (80.0-100.0); MEAN CORPUSCULAR HEMOGLOBIN 30.4 PG (27.0-34.0); MEAN CORPUSCULAR HGB CONC 33.5 % (32.0-36.0); MONO % 11.6 % (0.0-8.0); NEUT % 47.1 % (16.0-70.0); PLATELET COUNT 96 TH/MM3 (150-450); RED BLOOD COUNT 3.35 MIL/MM3 (4.00-5.30); WHITE BLOOD COUNT 3.6 TH/MM3 (4.0-11.0)
[2016-08-17 06:03] LABS: HEMO FLAGS AUTO DIFF
[2016-08-17] MEDS: metroNIDAZOLE 500 MG TAB PO SCH ×3 (06:06→21:02)
[2016-08-17] MEDS: SUCRALFATE 1 GM/10 ML CUP PO SCH ×4 (06:06→21:01)
[2016-08-17 06:11] LABS: BICARBONATE 26.9 MEQ/L (21.0-32.0); POTASSIUM 3.4 MEQ/L (3.5-5.1)
[2016-08-17 07:50] VITALS: BP 130/75; PULSE 66; RESP 20; TEMP 98.3; O2SAT 95
[2016-08-17 08:16] LABS: PLATELET ESTIMATE SMEAR LOW (NORMAL); PLATELET MORPHOLOGY NORMAL (NORMAL); SCAN/DIFF AUTO DIFF CONFIRMED
[2016-08-17] MEDS: SPIRONOLACTONE 25 MG TAB PO SCH ×2 (09:09→21:01)
[2016-08-17] MEDS: PANTOPRAZOLE SOD 40 MG DELAYED RELEASE TAB PO SCH ×2 (09:09→21:01)
[2016-08-17] MEDS: FOLIC ACID 1 MG TAB PO SCH (09:09)
[2016-08-17] MEDS: PROPRANOLOL HCL 20 MG TAB PO SCH ×3 (09:09→17:37)
[2016-08-17] MEDS: RIFAXIMIN 550 MG TAB PO SCH ×2 (09:09→21:01)
[2016-08-17] MEDS: CALCIUM/VITAMIN D 250 MG/125 U TAB PO SCH ×3 (09:09→17:37)
[2016-08-17] MEDS: SODIUM CHLORIDE 0.9% FLUSH 5 ML FLUSH IVF SCH ×2 (09:09→21:01)
--- NOTE | 2016-08-17 10:37 | HHI.PR ---
Subjective Remarks no pain complains states swelling of the left leg improved Objective Vitals Vital Signs Date Time Temp Pulse Resp B/P Pulse Ox O2 Delivery O2 Flow Rate FiO2 08/17/16 07:50 98.3 66 20 130/75 95 08/17/16 00:00 97.9 69 16 132/76 92 08/16/16 20:00 98.0 71 16 147/85 95 08/16/16 16:30 97.1 67 18 150/78 96 08/16/16 12:51 98.2 132 18 132/71 95 I/O 08/16/16 08/16/16 08/16/16 08/17/16 08/17/16 08/17/16 06:59 14:59 22:59 06:59 14:59 22:59 Intake Total 120 ml 360 ml 120 ml Output Total 600 ml 100 ml 75 ml 1050 ml Balance -480 ml -100 ml -75 ml -690 ml 120 ml Intake Oral 120 ml 360 ml 120 ml Output Urine Total 600 ml 100 ml 75 ml 1050 ml # Voids 2 # Bowel Movements 0 1 0 Result Diagram: 08/17/16 0514 08/17/16 0514 Imaging Last 72 hours Impressions Lower Extremity Ultrasound 08/16/16 0000 Signed Impressions: Service Date/Time: Tuesday, August 16, 2016 16:40 - CONCLUSION: Normal examination. Tony Moya MD Objective Remarks GENERAL: awake and alert, oriented x 3 HEAD: Normocephalic. EYES: No scleral icterus. No injection or drainage. NECK: Supple, trachea midline. No JVD or lymphadenopathy. CARDIOVASCULAR: Regular rate and rhythm without murmurs, gallops, or rubs. RESPIRATORY: Breath sounds equal bilaterally. No accessory muscle use. GASTROINTESTINAL: Abdomen soft, non-tender, nondistended. LLE- no swelling, good range of motion Right lower extremity- with soft cast in place. moves toes spontaneously, Procedures EGD: Showed gastric antral ulcer 08/03 removal of tib-fib hardware with ORIF A/P Problem List: (1) Hepatitis C ICD Code: B19.20 Status: Chronic (2) Cirrhosis of liver ICD Code: K74.60 Status: Chronic (3) Acute renal failure ICD Code: N17.9 Status: Acute (4) Fracture of distal end of tibia with fibula ICD Code: S82.309A Status: Chronic (5) Anemia ICD Code: D64.9 Status: Acute (6) Hypokalemia ICD Code: E87.6 Status: Acute (7) Thrombocytopenia ICD Code: D69.6 Status: Acute (8) Clostridium difficile colitis ICD Code: A04.7 Status: Acute (9) Gastric ulcer ICD Code: K25.9 Status: Acute (10) Pancytopenia ICD Code: D61.818 Status: Acute (11) Hepatic encephalopathy ICD Code: K72.90 Status: Acute Assessment and Plan 55-year-old female 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 s/p multiple transfusion, S/p EGD 07/29/16, showed single non bleeding ulcer 3-7 mm in size gastric antrum. Continue Protonix, S/p iron sucrose intravenous. Hb stable. Thrombocytopenia-no obvious bleeding- Likely secondary to hypersplenism per hematology. s/p transfusion prior to surgery. Thrombocytopenia stable. Right tibia-fibula nonunion, Status post ORIF revision 08/03/[address] Camacho. Nonweightbearing, will need rehabilitation. Continue oral opioids as needed for pain. C. difficile diarrhea- improving/no further loose stools. continue oral Flagyl , total 14 days, started 08/04. VIMAL, nonoliguric (due to diuresis and GI losses) - improved. Hypokalemia due to GI losses - - low today- replace and recheck in am Hypomagnesemia - resolved. Liver cirrhosis, Hepatic encephalopathy- resolved with hyperammonemia- lactulose held 2/2 recent diarrhea and ongoing hypokalemia. cont rifaximin. now compensated. monitor mental status. Bilateral lower extremity edema- left leg no swelling- negative for DVT Right LE- cast in place Hypertension- continue propranolol and Aldactone. Mild shortness of breath -improved. cxr 08/04 with atelectasis. continue duonebs and O2 prn. symptoms in part due to anemia. DVT prophylaxis: SCDs, pharmacological prophylaxis contraindicated medicaid no SNF benefits- came [employer] manager assisting 12/2 d/w her that we may need to send her home - no accepting facility with PT- patient very motivated Justin Thompson MD Aug 17, 2016 10:37
[2016-08-17] MEDS ORDERED: POTASSIUM CHLORIDE 10 MEQ CONTROLLED RELEASE TAB PO ONE (10:45)
[2016-08-17 11:46] VITALS: BP 124/74; PULSE 69; RESP 20; TEMP 98; O2SAT 95
--- NOTE | 2016-08-17 13:42 | RADRPT ---
EXAM DATE/TIME: 08/17/2016 12:22 [facility] COMPARISON: ANKLE RIGHT COMPLETE ([id number]), December 16, 2015, 11:11. INDICATIONS : Right ankle pain, recent ORIF MEDICAL HISTORY : None. SURGICAL HISTORY : ORIF right ankle, revison of right ankle surgery ENCOUNTER: Subsequent ACUITY: 3 weeks PAIN SCORE: 10/10 LOCATION: Right ankle FINDINGS: There are postsurgical changes with operative reduction and internal fixation of the previously seen fracture. The alignment is anatomic. CONCLUSION: Postsurgical changes as above. Armand Franz MD on August 17, 2016 at 13:40 Board Certified Radiologist. This report was verified electronically.
[2016-08-17 16:36] VITALS: BP 138/76; PULSE 69; RESP 18; TEMP 97.4; O2SAT 96
[2016-08-17 20:00] VITALS: BP 120/65; PULSE 74; RESP 16; TEMP 97.7; O2SAT 93
[2016-08-17] MEDS: traZODone HCL 50 MG TAB PO SCH (21:01)
[2016-08-18] VITALS: BP 126/72; PULSE 77; RESP 18; TEMP 97.9; O2SAT 93
[2016-08-18] MEDS: metroNIDAZOLE 500 MG TAB PO SCH ×2 (04:43→13:00)
[2016-08-18] MEDS: SUCRALFATE 1 GM/10 ML CUP PO SCH ×4 (04:44→19:36)
--- NOTE | 2016-08-18 07:10 | PD.ORT.PN ---
Subjective Subjective Remarks POD 15 s/p nonunion right distal tibia with revision ORIF patietn doing well. no complaints. resting comfortably Objective Vitals Vital Signs Date Time Temp Pulse Resp B/P Pulse Ox O2 Delivery O2 Flow Rate FiO2 08/18/16 00:00 97.9 77 18 126/72 93 08/17/16 20:00 97.7 74 16 120/65 93 08/17/16 16:36 97.4 69 18 138/76 96 08/17/16 11:46 98.0 69 20 124/74 95 08/17/16 07:50 98.3 66 20 130/75 95 I/O 08/17/16 08/17/16 08/17/16 08/18/16 08/18/16 08/18/16 07:00 15:00 23:00 07:00 15:00 23:00 Intake Total 120 ml 880 ml 240 ml 120 ml Output Total 750 ml 400 ml 300 ml 300 ml Balance -630 ml 480 ml -60 ml -180 ml Intake Oral 120 ml 880 ml 240 ml 120 ml Output Urine Total 750 ml 400 ml 300 ml 300 ml # Bowel Movements 0 0 0 0 Result Diagram: 08/17/16 0514 08/17/16 0514 Imaging Last 72 hours Impressions Ankle X-Ray 08/03/16 0000 Signed Impressions: Service Date/Time: Wednesday, August 03, 2016 16:54 - CONCLUSION: Status post ORIF of distal right tibial and fibular fractures resulting in satisfactory anatomic alignment. Edis Plascencia MD Objective Remarks Right lower extremity: Iliac crest bone graft site clean and dry. healed well. no drainage. short leg splint intact. splint removed and incisions visualized. clean and dry. healing well. no erythema or drainage. swelling minimal. Assessment & Plan Assessment and Plan 1) Right Distal Tibia nonunion with removal of hardware, open reduction internal fixation, stem cells and iliac crest bone graft - POD 15 strict NWB on RLE orthtotech to resplint right ankle fresh bandaged applied at bedside DC mariza from right hip will plan for suture removal of right ankle next week Rafa Valencia Aug 18, 2016 07:10
[2016-08-18 08:00] VITALS: BP 124/73; PULSE 67; RESP 14; TEMP 97.9; O2SAT 95
[2016-08-18] MEDS: PROPRANOLOL HCL 20 MG TAB PO SCH ×3 (08:47→17:35)
[2016-08-18] MEDS: SPIRONOLACTONE 25 MG TAB PO SCH ×2 (08:47→19:36)
[2016-08-18] MEDS: RIFAXIMIN 550 MG TAB PO SCH ×2 (08:47→19:37)
[2016-08-18] MEDS: PANTOPRAZOLE SOD 40 MG DELAYED RELEASE TAB PO SCH ×2 (08:47→19:37)
[2016-08-18] MEDS: FOLIC ACID 1 MG TAB PO SCH (08:47)
[2016-08-18] MEDS: CALCIUM/VITAMIN D 250 MG/125 U TAB PO SCH ×3 (08:47→17:35)
[2016-08-18] MEDS: SODIUM CHLORIDE 0.9% FLUSH 5 ML FLUSH IVF SCH ×2 (08:47→19:36)
[2016-08-18 11:03] LABS: BICARBONATE 26.5 MEQ/L (21.0-32.0); POTASSIUM 3.6 MEQ/L (3.5-5.1)
--- NOTE | 2016-08-18 11:21 | HHI.PR ---
Subjective Remarks no complains very motivated Objective Vitals Vital Signs Date Time Temp Pulse Resp B/P Pulse Ox O2 Delivery O2 Flow Rate FiO2 08/18/16 08:00 97.9 67 14 124/73 95 08/18/16 00:00 97.9 77 18 126/72 93 08/17/16 20:00 97.7 74 16 120/65 93 08/17/16 16:36 97.4 69 18 138/76 96 08/17/16 11:46 98.0 69 20 124/74 95 I/O 08/17/16 08/17/16 08/17/16 08/18/16 08/18/16 08/18/16 06:59 14:59 22:59 06:59 14:59 22:59 Intake Total 360 ml 880 ml 360 ml Output Total 1050 ml 400 ml 600 ml Balance -690 ml 480 ml -240 ml Intake Oral 360 ml 880 ml 360 ml Output Urine Total 1050 ml 400 ml 600 ml # Bowel Movements 0 0 0 Result Diagram: 08/17/16 0514 08/18/16 0933 Imaging Last Impressions Ankle X-Ray 08/17/16 0000 Signed Impressions: Service Date/Time: Wednesday, August 17, 2016 12:22 - CONCLUSION: Postsurgical changes as above. Armand Franz MD Lower Extremity Ultrasound 08/16/16 0000 Signed Impressions: Service Date/Time: Tuesday, August 16, 2016 16:40 - CONCLUSION: Normal examination. Tony Moya MD Chest X-Ray 08/04/16 0000 Signed Impressions: Service Date/Time: Thursday, August 04, 2016 14:39 - CONCLUSION: Bilateral airspace disease characteristic of atelectasis. No evidence of consolidating infiltrate. No evidence of significant congestion. Edis Plascencia MD Spleen Ultrasound 07/28/16 0000 Signed Impressions: Service Date/Time: Thursday, July 28, 2016 15:26 - CONCLUSION: Normal size spleen. Ramos Lo MD FACR Objective Remarks GENERAL: awake and alert, oriented x 3 HEAD: Normocephalic. EYES: No scleral icterus. No injection or drainage. NECK: Supple, trachea midline. No JVD or lymphadenopathy. CARDIOVASCULAR: Regular rate and rhythm without murmurs, gallops, or rubs. RESPIRATORY: Breath sounds equal bilaterally. No accessory muscle use. GASTROINTESTINAL: Abdomen soft, non-tender, nondistended. LLE- no swelling, good range of motion Right lower extremity- with soft cast in place. moves toes spontaneously, Procedures EGD: Showed gastric antral ulcer 08/03 removal of tib-fib hardware with ORIF A/P Problem List: (1) Hepatitis C ICD Code: B19.20 Status: Chronic (2) Cirrhosis of liver ICD Code: K74.60 Status: Chronic (3) Acute renal failure ICD Code: N17.9 Status: Acute (4) Fracture of distal end of tibia with fibula ICD Code: S82.309A Status: Chronic (5) Anemia ICD Code: D64.9 Status: Acute (6) Hypokalemia ICD Code: E87.6 Status: Acute (7) Thrombocytopenia ICD Code: D69.6 Status: Acute (8) Clostridium difficile colitis ICD Code: A04.7 Status: Acute (9) Gastric ulcer ICD Code: K25.9 Status: Acute (10) Pancytopenia ICD Code: D61.818 Status: Acute (11) Hepatic encephalopathy ICD Code: K72.90 Status: Acute Assessment and Plan 55-year-old female Symptomatic iron deficiency anemia-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 s/p multiple transfusion, S/p EGD 07/29/16, showed single non bleeding ulcer 3-7 mm in size gastric antrum. Continue Protonix, S/p iron sucrose intravenous. Hb stable. Thrombocytopenia-no obvious bleeding- Likely secondary to hypersplenism per hematology. s/p transfusion prior to surgery. Thrombocytopenia stable. Right tibia-fibula nonunion, Status post ORIF revision 08/03/[address] Camacho. Nonweightbearing, will need rehabilitation. Continue oral opioids as needed for pain. C. difficile diarrhea- improving/no further loose stools. continue oral Flagyl , total 14 days, started 08/04.- last day 08/18 VIMAL, nonoliguric (due to diuresis and GI losses) - improved. Hypokalemia due to GI losses - resolved. KCL 20 meq po daily. recheck BMP periodically Hypomagnesemia - resolved. Liver cirrhosis, Hepatic encephalopathy- resolved with hyperammonemia- lactulose held 2/2 recent diarrhea and ongoing hypokalemia. cont rifaximin. now compensated. monitor mental status. Bilateral lower extremity edema-likely secondary to cirrhosis, improving/ stable.on aldactone Hypertension- continue propranolol and Aldactone. Mild shortness of breath -improved. cxr 08/04 with atelectasis. continue duonebs and O2 prn. symptoms in part due to anemia. DVT prophylaxis: SCDs, pharmacological prophylaxis contraindicated medicaid no SNF benefits- came underwriting manager assisting 08/13 d/w her that we may need to send her home - no accepting facility with PT- patient very motivated 09/07- still awaiting approval Transfer to [facility]- D/w Dr. Ovalles. Justin Thomposn MD Aug 18, 2016 11:21
[2016-08-18 12:00] VITALS: BP 135/77; PULSE 68; RESP 16; TEMP 96.9; O2SAT 97
[2016-08-18] MEDS: POTASSIUM CHLORIDE 20 MEQ CONTROLLED RELEASE TAB PO SCH (13:00)
[2016-08-18 16:00] VITALS: BP 130/72; PULSE 63; RESP 20; TEMP 97.2; O2SAT 97
[2016-08-18] MEDS: traZODone HCL 50 MG TAB PO SCH (19:37)
[2016-08-18 20:00] VITALS: BP 119/83; PULSE 64; RESP 18; TEMP 97.9; O2SAT 95
[2016-08-19] MEDS: SUCRALFATE 1 GM/10 ML CUP PO SCH ×4 (06:00→20:08)
[2016-08-19 08:00] VITALS: BP 121/82; PULSE 71; RESP 20; TEMP 98.8; O2SAT 95
[2016-08-19] MEDS: FOLIC ACID 1 MG TAB PO SCH (09:15)
[2016-08-19] MEDS: CALCIUM/VITAMIN D 250 MG/125 U TAB PO SCH ×3 (09:15→17:10)
[2016-08-19] MEDS: PROPRANOLOL HCL 20 MG TAB PO SCH ×3 (09:15→17:10)
[2016-08-19] MEDS: PANTOPRAZOLE SOD 40 MG DELAYED RELEASE TAB PO SCH ×2 (09:15→20:09)
[2016-08-19] MEDS: POTASSIUM CHLORIDE 20 MEQ CONTROLLED RELEASE TAB PO SCH (09:16)
[2016-08-19] MEDS: SPIRONOLACTONE 25 MG TAB PO SCH ×2 (09:24→20:09)
[2016-08-19] MEDS: RIFAXIMIN 550 MG TAB PO SCH ×2 (09:24→20:09)
[2016-08-19] MEDS ORDERED: ONDANSETRON ODT 4 MG TAB PO PRN (10:45)
--- NOTE | 2016-08-19 11:03 | HHI.PR ---
Subjective Remarks Patient seen and examined today. Patient states she still having loose stools. Otherwise no new complaints Objective Vitals Vital Signs Date Time Temp Pulse Resp B/P Pulse Ox O2 Delivery O2 Flow Rate FiO2 08/18/16 20:00 97.9 64 18 119/83 95 Automatic Cuff 08/18/16 16:00 97.2 63 20 130/72 97 08/18/16 12:33 16 08/18/16 12:00 96.9 68 16 135/77 97 I/O 08/18/16 08/18/16 08/18/16 08/19/16 08/19/16 08/19/16 07:00 15:00 23:00 07:00 15:00 23:00 Intake Total 120 ml 480 ml 0 ml 60 ml Output Total 300 ml Balance -180 ml 480 ml 0 ml 60 ml Intake Oral 120 ml 480 ml 0 ml 60 ml Output Urine Total 300 ml # Voids 2 1 0 # Bowel Movements 0 1 0 0 Result Diagram: 08/17/16 0514 08/18/16 0933 Objective Remarks GENERAL: Well-developed, well-nourished, in no acute distress. alert and orientated HEENT: Head is normocephalic without any lesions or masses noted. Facial features are symmetric. Eyes: Pupils equal round reactive to light. Extraocular muscles are intact. Conjunctivae were clear NECK: Supple without any masses. Trachea midline no deviation. No JVD, CARDIAC: Regular rhythm, regular rate. S1/S2 are heard. No murmurs gallops or rubs. LUNGS: Clear to auscultation bilaterally. No wheeze, rhonchi or rales. No use of accessory muscles on inspiration or expiration. ABDOMEN: Soft, nontender. Nondistended. Bowel sounds heard in all 4 quadrants. No organomegaly or masses. Negative rebound, negative guarding EXTREMITIES: No edema, pulses are equal bilaterally. No cyanosis or clubbing. Right lower extremity in splint NEUROLOGY: Mood and affect appear appropriate. Cranial nerves II through XII grossly intact. Moving all extremities, speech is clear Procedures EGD: Showed gastric antral ulcer 08/03 removal of tib-fib hardware with ORIF Urinary Catheter: No Vascular Central Line Catheter: No A/P Assessment and Plan Right tibia-fibula nonunion, Orthopedic managing Status post ORIF revision 08/03/[address] Camacho. Nonweightbearing, will need rehabilitation. Pain control OxyContin 5 mg every 6 hours as needed for pain C. 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 Hemoglobin stable s/p multiple transfusion, S/p EGD 07/29/16, showed single non bleeding ulcer 3-7 mm in size gastric antrum. 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 s/p transfusion prior to surgery Liver cirrhosis, Hepatic encephalopathy with hyperammonemia, resolved Lactulose discontinued Continue rifaximin Hypertension, stable Continue propranolol and Aldactone. DVT prophylaxis: SCDs, pharmacological prophylaxis contraindicated Discharge Planning Case management in charge of discharge planning 08/18 MD ORDER FOR TRANSFER TO [facility] PATIENT ACCEPTS TRANSFER ATTENDING DR LEMON WROTE TRANSFER ORDER ORTHO AGREED TO TRANSFER/HEMATOLOGY ALREADY SIGNED OFF DR CAMPBELL IS ACCEPTING MD AND DR LEMON STATES SHE SPOKE WITH HIM PATIENT ASSIGNED ROOM 8502. CM VERIFIED ROOM READY WITH YOU [id number]. TIME OF TRANSPORT AT 8PM. MADE ARRANGEMENT WITH [employer] X 4070. [facility] TRANSPORT (VERIFIED WITH [facility] [facility] THAT COULD TRANSPORT) INTERFACILITY TRANSFER FORM AT DESK. NOTIFIED WASTE RECYCLER AND CHARGE NURSE TRANSFER SET FOR 8PM. WASTE RECYCLER TO SET UP PACKET. BEDSIDE NURSE CHAVA HAS ALREADY CALLED REPORT TO FIFTH FLOOR [id number]. Isaac Leal Aug 19, 2016 11:03
[2016-08-19 20:00] VITALS: BP 118/80; PULSE 70; RESP 16; TEMP 98.8; O2SAT 94
[2016-08-19] MEDS: traZODone HCL 50 MG TAB PO SCH (20:08)
[2016-08-20] MEDS: SUCRALFATE 1 GM/10 ML CUP PO SCH ×4 (06:06→21:25)
[2016-08-20 08:00] VITALS: BP 127/86; PULSE 67; RESP 20; TEMP 98.3; O2SAT 94
--- NOTE | 2016-08-20 08:19 | HHI.PR ---
Subjective Remarks Patient seen and examined today. Patient denies any new complaints. Patient is requesting a different diet. Objective Vitals Vital Signs Date Time Temp Pulse Resp B/P Pulse Ox O2 Delivery O2 Flow Rate FiO2 08/19/16 20:00 98.8 70 16 118/80 94 08/19/16 18:18 14 I/O 08/19/16 08/19/16 08/19/16 08/20/16 08/20/16 08/20/16 07:00 15:00 23:00 07:00 15:00 23:00 Intake Total 60 ml 640 ml 200 ml Balance 60 ml 640 ml 200 ml Intake Oral 60 ml 640 ml 200 ml # Voids 0 4 1 # Bowel Movements 0 0 0 Result Diagram: 08/17/16 0514 08/18/16 0933 Objective Remarks GENERAL: Well-developed, well-nourished, in no acute distress. alert and orientated HEENT: Head is normocephalic without any lesions or masses noted. Facial features are symmetric. Eyes: Pupils equal round reactive to light. Extraocular muscles are intact. Conjunctivae were clear NECK: Supple without any masses. Trachea midline no deviation. No JVD, CARDIAC: Regular rhythm, regular rate. S1/S2 are heard. No murmurs gallops or rubs. LUNGS: Clear to auscultation bilaterally. No wheeze, rhonchi or rales. No use of accessory muscles on inspiration or expiration. ABDOMEN: Soft, nontender. Nondistended. Bowel sounds heard in all 4 quadrants. No organomegaly or masses. Negative rebound, negative guarding EXTREMITIES: No edema, pulses are equal bilaterally. No cyanosis or clubbing. Right lower extremity in splint NEUROLOGY: Mood and affect appear appropriate. Cranial nerves II through XII grossly intact. Moving all extremities, speech is clear Procedures EGD: Showed gastric antral ulcer 08/03 removal of tib-fib hardware with ORIF Urinary Catheter: No Vascular Central Line Catheter: No A/P Assessment and Plan Right tibia-fibula nonunion, Orthopedic managing Status post ORIF revision 08/03/[address] Camacho. Nonweightbearing, will need rehabilitation. Pain control OxyContin 5 mg every 6 hours as needed for pain C. 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 Hemoglobin stable s/p multiple transfusion, S/p EGD 07/29/16, showed single non bleeding ulcer 3-7 mm in size gastric antrum. 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 s/p transfusion prior to surgery Liver cirrhosis, Hepatic encephalopathy with hyperammonemia, resolved Lactulose discontinued Continue rifaximin Hypertension, stable Continue propranolol and Aldactone. DVT prophylaxis: SCDs, pharmacological prophylaxis contraindicated Discharge Planning Case management in charge of discharge planning 08/18 MD ORDER FOR TRANSFER TO [facility] PATIENT ACCEPTS TRANSFER ATTENDING DR LEMON WROTE TRANSFER ORDER ORTHO AGREED TO TRANSFER/HEMATOLOGY ALREADY SIGNED OFF DR CAMPBELL IS ACCEPTING MD AND DR LEMON STATES SHE SPOKE WITH HIM PATIENT ASSIGNED ROOM 8502. CM VERIFIED ROOM READY WITH YOU [id number]. TIME OF TRANSPORT AT 8PM. MADE ARRANGEMENT WITH [employer] 4070. [facility] TRANSPORT (VERIFIED WITH [facility] THAT COULD TRANSPORT) INTERFACILITY TRANSFER FORM AT DESK. NOTIFIED ARMY OFFICER AND CHARGE NURSE TRANSFER SET FOR 8PM. ARMY OFFICER TO SET UP PACKET. BEDSIDE NURSE CHAVA HAS ALREADY CALLED REPORT TO FIFTH FLOOR [id number]. Isaac Leal Aug 20, 2016 08:19
[2016-08-20] MEDS: SPIRONOLACTONE 25 MG TAB PO SCH ×2 (08:38→21:25)
[2016-08-20] MEDS: POTASSIUM CHLORIDE 20 MEQ CONTROLLED RELEASE TAB PO SCH (08:38)
[2016-08-20] MEDS: PROPRANOLOL HCL 20 MG TAB PO SCH ×3 (08:39→16:03)
[2016-08-20] MEDS: RIFAXIMIN 550 MG TAB PO SCH ×2 (08:39→21:25)
[2016-08-20] MEDS: CALCIUM/VITAMIN D 250 MG/125 U TAB PO SCH ×3 (08:39→16:03)
[2016-08-20] MEDS: PANTOPRAZOLE SOD 40 MG DELAYED RELEASE TAB PO SCH ×2 (08:39→21:25)
[2016-08-20 12:00] VITALS: BP 117/79; RESP 20; TEMP 98.4; O2SAT 93
--- NOTE | 2016-08-20 15:26 | RADHPO ---
EXAM DATE/TIME: 08/20/2016 14:29 [facility] COMPARISON: CHEST PA & LAT, August 04, 2016, 14:39. INDICATIONS : Short of breath during activity post ankle surgery. MEDICAL HISTORY : Osteoarthritis. Hypertension. Hepatitis C. Cirrhosis. SURGICAL HISTORY : section. Orthopaedic surgery right leg. Paracentesis. ENCOUNTER: Subsequent ACUITY: 3 weeks PAIN SCORE: 0/10 LOCATION: chest FINDINGS: PA and lateral views of the chest demonstrate the lungs to be symmetrically aerated without evidence of mass, infiltrate or effusion. The cardiomediastinal contours are unremarkable. Osseous structure s are intact. CONCLUSION: No acute disease. Tom Greene MD on August 20, 2016 at 15:23 Board Certified Radiologist. This report was verified electronically.
[2016-08-20 16:00] VITALS: BP 124/82; PULSE 65; RESP 20; TEMP 97.9; O2SAT 96
[2016-08-20] MEDS: traZODone HCL 50 MG TAB PO SCH (21:25)
[2016-08-20 23:41] VITALS: BP 112/77; PULSE 65; RESP 20; TEMP 98.8; O2SAT 96
[2016-08-21] MEDS: SUCRALFATE 1 GM/10 ML CUP PO SCH ×4 (06:12→21:59)
[2016-08-21 07:15] VITALS: BP 133/85; PULSE 68; RESP 16; TEMP 97.4; O2SAT 96
[2016-08-21] MEDS: RIFAXIMIN 550 MG TAB PO SCH ×2 (09:45→21:59)
[2016-08-21] MEDS: PROPRANOLOL HCL 20 MG TAB PO SCH ×3 (09:45→16:07)
[2016-08-21] MEDS: SPIRONOLACTONE 25 MG TAB PO SCH ×2 (09:45→21:59)
[2016-08-21] MEDS: PANTOPRAZOLE SOD 40 MG DELAYED RELEASE TAB PO SCH ×2 (09:45→21:59)
[2016-08-21] MEDS: POTASSIUM CHLORIDE 20 MEQ CONTROLLED RELEASE TAB PO SCH (09:46)
[2016-08-21] MEDS: CALCIUM/VITAMIN D 250 MG/125 U TAB PO SCH ×3 (09:46→16:07)
--- NOTE | 2016-08-21 10:55 | HHI.PR ---
Subjective Remarks Patient seen and examined today. Patient states that the last few weeks she has had increased shortness of breath and dyspnea. Objective Vitals Vital Signs Date Time Temp Pulse Resp B/P Pulse Ox O2 Delivery O2 Flow Rate FiO2 08/21/16 07:15 97.4 68 16 133/85 96 08/21/16 04:33 20 08/20/16 23:41 98.8 65 20 112/77 96 08/20/16 16:00 97.9 65 20 124/82 96 08/20/16 12:00 98.4 20 117/79 93 I/O 08/20/16 08/20/16 08/20/16 08/21/16 08/21/16 08/21/16 07:00 15:00 23:00 07:00 15:00 23:00 Intake Total 200 ml 600 ml 600 ml Balance 200 ml 600 ml 600 ml Intake Oral 200 ml 600 ml 600 ml # Voids 1 5 3 # Bowel Movements 0 1 0 Result Diagram: 08/17/16 0514 08/18/16 0933 Objective Remarks GENERAL: Well-developed, well-nourished, in no acute distress. alert and orientated HEENT: Head is normocephalic without any lesions or masses noted. Facial features are symmetric. Eyes: Pupils equal round reactive to light. Extraocular muscles are intact. Conjunctivae were clear NECK: Supple without any masses. Trachea midline no deviation. No JVD, CARDIAC: Regular rhythm, regular rate. S1/S2 are heard. No murmurs gallops or rubs. LUNGS: Clear to auscultation bilaterally. No wheeze, rhonchi or rales. No use of accessory muscles on inspiration or expiration. ABDOMEN: Soft, nontender. Nondistended. Bowel sounds heard in all 4 quadrants. No organomegaly or masses. Negative rebound, negative guarding EXTREMITIES: No edema, pulses are equal bilaterally. No cyanosis or clubbing. Right lower extremity in splint NEUROLOGY: Mood and affect appear appropriate. Cranial nerves II through XII grossly intact. Moving all extremities, speech is clear Procedures EGD: Showed gastric antral ulcer 08/03 removal of tib-fib hardware with ORIF Urinary Catheter: No Vascular Central Line Catheter: No A/P Assessment and Plan Right tibia-fibula nonunion, Orthopedic managing Status post ORIF revision 08/03/[address] Camacho. Nonweightbearing, will need rehabilitation. Pain control OxyContin 5 mg every 6 hours as needed for pain COPD with shortness of breath and dyspnea Chest x-ray did not indicate any acute abnormality Patient with good O2 saturations Start incentive spirometry C. 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 Hemoglobin stable s/p multiple transfusion, S/p EGD 07/29/16, showed single non bleeding ulcer 3-7 mm in size gastric antrum. 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 s/p transfusion prior to surgery Liver cirrhosis, Hepatic encephalopathy with hyperammonemia, resolved Lactulose discontinued Continue rifaximin Hypertension, stable Continue propranolol and Aldactone. DVT prophylaxis: SCDs, pharmacological prophylaxis contraindicated Discharge Planning Case management in charge of discharge planning 08/18 MD ORDER FOR TRANSFER TO [facility] PATIENT ACCEPTS TRANSFER ATTENDING DR LEMON WROTE TRANSFER ORDER ORTHO AGREED TO TRANSFER/HEMATOLOGY ALREADY SIGNED OFF DR CAMPBELL IS ACCEPTING MD AND DR LEMON STATES SHE SPOKE WITH HIM PATIENT ASSIGNED ROOM 8502. CM VERIFIED ROOM READY WITH YOU [id number]. TIME OF TRANSPORT AT 8PM. MADE ARRANGEMENT WITH MAX[employer] X 4070. [facility] TRANSPORT (VERIFIED WITH [employer] [facility] THAT COULD TRANSPORT) INTERFACILITY TRANSFER FORM AT DESK. NOTIFIED SOCIOLOGY PROFESSOR AND CHARGE NURSE TRANSFER SET FOR 8PM. SOCIOLOGY PROFESSOR TO SET UP PACKET. BEDSIDE NURSE CHAVA HAS ALREADY CALLED REPORT TO FIFTH FLOOR [id number]. Isaac Leal Aug 21, 2016 10:55
[2016-08-21] MEDS: traZODone HCL 50 MG TAB PO SCH (21:59)
[2016-08-21 22:00] VITALS: BP 115/79; PULSE 73; RESP 18; TEMP 98.6; O2SAT 95
[2016-08-22] MEDS: SUCRALFATE 1 GM/10 ML CUP PO SCH ×4 (06:30→20:13)
[2016-08-22 08:00] VITALS: BP 127/75; PULSE 66; RESP 16; TEMP 99.1; O2SAT 93
[2016-08-22] MEDS: PANTOPRAZOLE SOD 40 MG DELAYED RELEASE TAB PO SCH ×2 (09:39→20:13)
[2016-08-22] MEDS: PROPRANOLOL HCL 20 MG TAB PO SCH ×3 (09:39→17:56)
[2016-08-22] MEDS: RIFAXIMIN 550 MG TAB PO SCH ×2 (09:39→20:13)
[2016-08-22] MEDS: CALCIUM/VITAMIN D 250 MG/125 U TAB PO SCH ×3 (09:40→17:56)
[2016-08-22] MEDS: POTASSIUM CHLORIDE 20 MEQ CONTROLLED RELEASE TAB PO SCH (09:40)
[2016-08-22] MEDS: SPIRONOLACTONE 25 MG TAB PO SCH ×2 (09:40→20:13)
--- NOTE | 2016-08-22 09:54 | HHI.PR ---
Subjective Remarks Patient seen and examined today. Patient denies any new complaints. Patient having normal bowel movements. No longer experiencing any loose stools or diarrhea Objective Vitals Vital Signs Date Time Temp Pulse Resp B/P Pulse Ox O2 Delivery O2 Flow Rate FiO2 08/22/16 08:00 99.1 66 16 127/75 93 08/21/16 22:00 98.6 73 18 115/79 95 08/21/16 17:12 14 I/O 08/21/16 08/21/16 08/21/16 08/22/16 08/22/16 08/22/16 07:00 15:00 23:00 07:00 15:00 23:00 Intake Total 600 ml 240 ml Output Total 300 ml 1000 ml Balance 600 ml 240 ml -300 ml -1000 ml Intake Oral 600 ml 240 ml Output Urine Total 300 ml 1000 ml # Voids 3 2 # Bowel Movements 0 0 Result Diagram: 08/18/16 0933 Objective Remarks GENERAL: Well-developed, well-nourished, in no acute distress. alert and orientated HEENT: Head is normocephalic without any lesions or masses noted. Facial features are symmetric. Eyes: Pupils equal round reactive to light. Extraocular muscles are intact. Conjunctivae were clear NECK: Supple without any masses. Trachea midline no deviation. No JVD, CARDIAC: Regular rhythm, regular rate. S1/S2 are heard. No murmurs gallops or rubs. LUNGS: Clear to auscultation bilaterally. No wheeze, rhonchi or rales. No use of accessory muscles on inspiration or expiration. ABDOMEN: Soft, nontender. Nondistended. Bowel sounds heard in all 4 quadrants. No organomegaly or masses. Negative rebound, negative guarding EXTREMITIES: No edema, pulses are equal bilaterally. No cyanosis or clubbing. Right lower extremity in splint NEUROLOGY: Mood and affect appear appropriate. Cranial nerves II through XII grossly intact. Moving all extremities, speech is clear Procedures EGD: Showed gastric antral ulcer 08/03 removal of tib-fib hardware with ORIF Urinary Catheter: No Vascular Central Line Catheter: No A/P Assessment and Plan Right tibia-fibula nonunion, Orthopedic managing Status post ORIF revision 08/03/[address] Camacho. Nonweightbearing, will need rehabilitation. Pain control OxyContin 5 mg every 6 hours as needed for pain COPD with shortness of breath and dyspnea Chest x-ray did not indicate any acute abnormality Patient with good O2 saturations Continue incentive spirometry C. 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 Hemoglobin stable s/p multiple transfusion, S/p EGD 07/29/16, showed single non bleeding ulcer 3-7 mm in size gastric antrum. 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 s/p transfusion prior to surgery Liver cirrhosis, Hepatic encephalopathy with hyperammonemia, resolved Lactulose discontinued Continue rifaximin Hypertension, stable Continue propranolol and Aldactone. DVT prophylaxis: SCDs, pharmacological prophylaxis contraindicated Discharge Planning Case management in charge of discharge planning 08/18 MD ORDER FOR TRANSFER TO [facility] PATIENT ACCEPTS TRANSFER ATTENDING DR LEMON WROTE TRANSFER ORDER ORTHO AGREED TO TRANSFER/HEMATOLOGY ALREADY SIGNED OFF DR CAMPBELL IS ACCEPTING MD AND DR LEMON STATES SHE SPOKE WITH HIM PATIENT ASSIGNED ROOM 8502. CM VERIFIED ROOM READY WITH YOU [id number]. TIME OF TRANSPORT AT 8PM. MADE ARRANGEMENT WITH [employer]. [facility] TRANSPORT (VERIFIED WITH [facility] THAT COULD TRANSPORT) INTERFACILITY TRANSFER FORM AT DESK. NOTIFIED SCOURING TRAIN OPERATOR AND CHARGE NURSE TRANSFER SET FOR 8PM. SCOURING TRAIN OPERATOR TO SET UP PACKET. BEDSIDE NURSE CHAVA HAS ALREADY CALLED REPORT TO FIFTH FLOOR [id number]. Isaac Leal Aug 22, 2016 09:54
[2016-08-22] MEDS: traZODone HCL 50 MG TAB PO SCH (20:13)
[2016-08-22 21:43] VITALS: BP 120/76; PULSE 67; RESP 18; TEMP 97.2; O2SAT 95
[2016-08-23] MEDS: SUCRALFATE 1 GM/10 ML CUP PO SCH ×4 (06:34→23:23)
[2016-08-23 08:00] VITALS: BP 118/73; PULSE 66; RESP 20; TEMP 97.8; O2SAT 95
[2016-08-23] MEDS: POTASSIUM CHLORIDE 20 MEQ CONTROLLED RELEASE TAB PO SCH (08:29)
[2016-08-23] MEDS: PANTOPRAZOLE SOD 40 MG DELAYED RELEASE TAB PO SCH ×2 (08:29→23:23)
[2016-08-23] MEDS: CALCIUM/VITAMIN D 250 MG/125 U TAB PO SCH ×3 (08:29→16:54)
[2016-08-23] MEDS: SPIRONOLACTONE 25 MG TAB PO SCH ×2 (08:29→23:23)
[2016-08-23] MEDS: RIFAXIMIN 550 MG TAB PO SCH ×2 (08:29→23:23)
[2016-08-23] MEDS: PROPRANOLOL HCL 20 MG TAB PO SCH ×3 (08:29→16:54)
[2016-08-23 08:37] LABS: BASOPHIL # 0.1 TH/MM3 (0-0.2); EOSINOPHIL # 0.2 TH/MM3 (0-0.4); EOSINOPHIL % 9.2 % (0.0-4.0); HEMATOCRIT 30.6 % (35.0-46.0); LYMPH % 37.2 % (9.0-44.0); MEAN CELL VOLUME 91.3 FL (80.0-100.0); MEAN CORPUSCULAR HGB CONC 32.9 % (32.0-36.0); MONO % 14.6 % (0.0-8.0); PLATELET COUNT 91 TH/MM3 (150-450); RED BLOOD COUNT 3.35 MIL/MM3 (4.00-5.30); RED CELL DISTRIBUTION WIDTH 18.8 % (11.6-17.2); WHITE BLOOD COUNT 2.7 TH/MM3 (4.0-11.0)
[2016-08-23 08:38] LABS: HEMO FLAGS AUTO DIFF
[2016-08-23 08:46] LABS: POTASSIUM 3.7 MEQ/L (3.5-5.1)
[2016-08-23 08:49] LABS: BICARBONATE 28.8 MEQ/L (21.0-32.0); MAGNESIUM 1.6 MG/DL (1.5-2.5)
[2016-08-23 08:53] LABS: PLATELET ESTIMATE SMEAR LOW (NORMAL); PLATELET MORPHOLOGY NORMAL (NORMAL); SCAN/DIFF AUTO DIFF CONFIRMED
--- NOTE | 2016-08-23 10:02 | HHI.PR ---
Subjective Remarks Patient seen and examined today. Patient states he has had intermittent swelling in her lower extremities. On examination today there is no swelling Objective Vitals Vital Signs Date Time Temp Pulse Resp B/P Pulse Ox O2 Delivery O2 Flow Rate FiO2 08/23/16 08:00 97.8 66 20 118/73 95 08/23/16 07:34 18 08/22/16 21:43 97.2 67 18 120/76 95 I/O 08/22/16 08/22/16 08/22/16 08/23/16 08/23/16 08/23/16 07:00 15:00 23:00 07:00 15:00 23:00 Intake Total 240 ml Output Total 1000 ml 300 ml 125 ml Balance -1000 ml 240 ml -300 ml -125 ml Intake Oral 240 ml Output Urine Total 1000 ml 300 ml 125 ml # Voids 2 3 # Bowel Movements 0 Result Diagram: 08/23/16 0820 08/23/16 0820 Objective Remarks GENERAL: Well-developed, well-nourished, in no acute distress. alert and orientated HEENT: Head is normocephalic without any lesions or masses noted. Facial features are symmetric. Eyes: Pupils equal round reactive to light. Extraocular muscles are intact. Conjunctivae were clear NECK: Supple without any masses. Trachea midline no deviation. No JVD, CARDIAC: Regular rhythm, regular rate. S1/S2 are heard. No murmurs gallops or rubs. LUNGS: Clear to auscultation bilaterally. No wheeze, rhonchi or rales. No use of accessory muscles on inspiration or expiration. ABDOMEN: Soft, nontender. Nondistended. Bowel sounds heard in all 4 quadrants. No organomegaly or masses. Negative rebound, negative guarding EXTREMITIES: No edema, pulses are equal bilaterally. No cyanosis or clubbing. Right lower extremity in splint NEUROLOGY: Mood and affect appear appropriate. Cranial nerves II through XII grossly intact. Moving all extremities, speech is clear Procedures EGD: Showed gastric antral ulcer 08/03 removal of tib-fib hardware with ORIF Urinary Catheter: No Vascular Central Line Catheter: No A/P Assessment and Plan Right tibia-fibula nonunion, Orthopedic managing Status post ORIF revision 08/03/[address] Camacho. Nonweightbearing, will need rehabilitation. Pain control OxyContin 5 mg every 6 hours as needed for pain COPD with shortness of breath and dyspnea, improved Chest x-ray did not indicate any acute abnormality Patient with good O2 saturations Continue incentive spirometry C. 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 Hemoglobin stable s/p multiple transfusion, S/p EGD 07/29/16, showed single non bleeding ulcer 3-7 mm in size gastric antrum. 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 s/p transfusion prior to surgery Liver cirrhosis, Hepatic encephalopathy with hyperammonemia, resolved Lactulose discontinued Continue rifaximin Hypertension, stable Continue propranolol and Aldactone. DVT prophylaxis: SCDs, pharmacological prophylaxis contraindicated Discharge Planning Case management in charge of discharge planning 08/18 MD ORDER FOR TRANSFER TO [facility] PATIENT ACCEPTS TRANSFER ATTENDING DR LEMON WROTE TRANSFER ORDER ORTHO AGREED TO TRANSFER/HEMATOLOGY ALREADY SIGNED OFF DR CAMPBELL IS ACCEPTING MD AND DR LEMON STATES SHE SPOKE WITH HIM PATIENT ASSIGNED ROOM 8502. CM VERIFIED ROOM READY WITH YOU [id number]. TIME OF TRANSPORT AT 8PM. MADE ARRANGEMENT WITH [employer]. [facility] TRANSPORT (VERIFIED WITH [facility] [facility] THAT COULD TRANSPORT) INTERFACILITY TRANSFER FORM AT DESK. NOTIFIED RAILWAY SIGNAL ELECTRICIAN AND CHARGE NURSE TRANSFER SET FOR 8PM. RAILWAY SIGNAL ELECTRICIAN TO SET UP PACKET. BEDSIDE NURSE CHAVA HAS ALREADY CALLED REPORT TO FIFTH FLOOR [id number]. Isaac Leal Aug 23, 2016 10:02
[2016-08-23 21:00] VITALS: BP 120/80; PULSE 67; RESP 18; TEMP 97.4; O2SAT 96
[2016-08-23] MEDS: traZODone HCL 50 MG TAB PO SCH (23:23)
[2016-08-24] MEDS: SUCRALFATE 1 GM/10 ML CUP PO SCH ×4 (06:32→20:59)
[2016-08-24 08:00] VITALS: BP 139/81; PULSE 63; RESP 17; TEMP 96.4; O2SAT 94
[2016-08-24] MEDS: PROPRANOLOL HCL 20 MG TAB PO SCH ×3 (09:32→17:54)
[2016-08-24] MEDS: CALCIUM/VITAMIN D 250 MG/125 U TAB PO SCH ×3 (09:32→17:54)
[2016-08-24] MEDS: POTASSIUM CHLORIDE 20 MEQ CONTROLLED RELEASE TAB PO SCH (09:32)
[2016-08-24] MEDS: PANTOPRAZOLE SOD 40 MG DELAYED RELEASE TAB PO SCH ×2 (09:32→20:59)
[2016-08-24] MEDS: SPIRONOLACTONE 25 MG TAB PO SCH ×2 (09:33→20:59)
[2016-08-24] MEDS: RIFAXIMIN 550 MG TAB PO SCH ×2 (09:33→20:59)
--- NOTE | 2016-08-24 15:46 | HHI.PR ---
Subjective Remarks Follow-up status post ORIF right tib-fib, C. difficile. Patient admits to tingling in the left distal foot. States her diarrhea has resolved. Objective Vitals Vital Signs Date Time Temp Pulse Resp B/P Pulse Ox O2 Delivery O2 Flow Rate FiO2 08/24/16 08:00 96.4 63 17 139/81 94 08/23/16 21:00 97.4 67 18 120/80 96 08/23/16 17:58 18 I/O 08/23/16 08/23/16 08/23/16 08/24/16 08/24/16 08/24/16 06:59 14:59 22:59 06:59 14:59 22:59 Intake Total 480 ml 360 ml 100 ml 480 ml Output Total 125 ml 250 ml Balance -125 ml 480 ml 360 ml -150 ml 480 ml Intake Oral 480 ml 360 ml 100 ml 480 ml IV Total 0 ml Output Urine Total 125 ml 250 ml # Voids 3 2 3 1 2 Result Diagram: 08/23/16 0820 08/23/16 0820 Imaging Last Impressions Chest X-Ray 08/20/16 0000 Signed Impressions: Service Date/Time: Saturday, August 20, 2016 14:29 - CONCLUSION: No acute disease. Tom Greene MD Ankle X-Ray 08/17/16 0000 Signed Impressions: Service Date/Time: Wednesday, August 17, 2016 12:22 - CONCLUSION: Postsurgical changes as above. Armand Franz MD Lower Extremity Ultrasound 08/16/16 0000 Signed Impressions: Service Date/Time: Tuesday, August 16, 2016 16:40 - CONCLUSION: Normal examination. Tony Moya MD Spleen Ultrasound 07/28/16 0000 Signed Impressions: Service Date/Time: Thursday, July 28, 2016 15:26 - CONCLUSION: Normal size spleen. Ramos Lo MD FACR Objective Remarks GENERAL: Pleasant well-nourished, well-developed patient in no apparent distress sitting in recliner. SKIN: Warm and dry. Scar over R iliac crest. Blanching erythema noted around nail of each toe to both feet. No fluctuance or drainage. HEAD: Atraumatic. Normocephalic. CARDIOVASCULAR: Regular rate and rhythm. RESPIRATORY: Limited exam. No accessory muscle use. Clear to auscultation. Breath sounds equal bilaterally. MUSCULOSKELETAL: Thick splint to right lower extremity. Capillary refill normal in digits of both feet. No left lower extremity edema or calf pain. NEUROLOGICAL: Awake and alert. Normal speech. Gross sensation is decreased over toes of both feet. PSYCHIATRIC: Appropriate mood and affect; insight and judgment normal. Procedures EGD: Showed gastric antral ulcer 08/03: Removal broken hardware from right tibia and fibula, open treatment of right tibia and fibula nonunion, and iliac crest bone grafting with stem cell graft. Urinary Catheter: No Vascular Central Line Catheter: No A/P Problem List: (1) Hepatitis C ICD Code: B19.20 Status: Chronic (2) Cirrhosis of liver ICD Code: K74.60 Status: Chronic (3) Acute renal failure ICD Code: N17.9 Status: Acute (4) Fracture of distal end of tibia with fibula ICD Code: S82.309A Status: Chronic (5) Anemia ICD Code: D64.9 Status: Acute (6) Hypokalemia ICD Code: E87.6 Status: Acute (7) Thrombocytopenia ICD Code: D69.6 Status: Acute (8) Clostridium difficile colitis ICD Code: A04.7 Status: Acute (9) Gastric ulcer ICD Code: K25.9 Status: Acute (10) Pancytopenia ICD Code: D61.818 Status: Acute (11) Hepatic encephalopathy ICD Code: K72.90 Status: Acute Assessment and Plan Right tibia-fibula nonunion, Orthopedic managing Status post ORIF revision 08/03/[address] Camacho. Nonweightbearing, will need rehabilitation. Pain control Oxycodone 5 mg every 6 hours as needed for pain COPD with shortness of breath and dyspnea, improved Chest x-ray did not indicate any acute abnormality Patient with good O2 saturations Continue incentive spirometry C. 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 Hemoglobin stable s/p multiple transfusion, S/p EGD 07/29/16, showed single non bleeding ulcer 3-7 mm in size gastric antrum. 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 s/p transfusion prior to surgery Liver cirrhosis, Hepatic encephalopathy with hyperammonemia, resolved Lactulose discontinued Continue rifaximin Hypertension, stable Continue propranolol and Aldactone. DVT prophylaxis: SCDs, pharmacological prophylaxis contraindicated Discharge Planning manager wind following. Will require clearance by orthopedics. Alix Johnson Aug 24, 2016 15:46 Alex Almaguer DO Aug 25, 2016 01:51
[2016-08-24 20:00] VITALS: BP 145/80; PULSE 63; RESP 18; TEMP 96.6; O2SAT 94
[2016-08-24] MEDS: traZODone HCL 50 MG TAB PO SCH (20:59)
[2016-08-25] MEDS: SUCRALFATE 1 GM/10 ML CUP PO SCH ×4 (06:13→20:46)
[2016-08-25 08:00] VITALS: BP 128/76; PULSE 66; RESP 16; TEMP 98.9; O2SAT 92
[2016-08-25] MEDS: CALCIUM/VITAMIN D 250 MG/125 U TAB PO SCH ×3 (08:21→18:00)
[2016-08-25] MEDS: SPIRONOLACTONE 25 MG TAB PO SCH ×2 (08:21→20:46)
[2016-08-25] MEDS: PROPRANOLOL HCL 20 MG TAB PO SCH ×3 (08:21→18:00)
[2016-08-25] MEDS: POTASSIUM CHLORIDE 20 MEQ CONTROLLED RELEASE TAB PO SCH (08:21)
[2016-08-25] MEDS: RIFAXIMIN 550 MG TAB PO SCH ×2 (08:21→20:46)
[2016-08-25] MEDS: PANTOPRAZOLE SOD 40 MG DELAYED RELEASE TAB PO SCH ×2 (08:21→20:46)
--- NOTE | 2016-08-25 14:45 | HHI.PR ---
Subjective Remarks Status post ORIF right lower extremity with stem cell and iliac crest bone graft. Patient still admits to numbness and tingling in the left distal foot which apparently started after surgery; has symptoms in right foot as well. Denies any pain in the left foot. Denies symptoms radiating down the left leg. Objective Vitals Vital Signs Date Time Temp Pulse Resp B/P Pulse Ox O2 Delivery O2 Flow Rate FiO2 08/25/16 08:00 98.9 66 16 128/76 92 08/25/16 02:56 20 08/24/16 20:00 96.6 63 18 145/80 94 I/O 08/24/16 08/24/16 08/24/16 08/25/16 08/25/16 08/25/16 07:00 15:00 23:00 07:00 15:00 23:00 Intake Total 100 ml 480 ml 300 ml Output Total 250 ml 600 ml Balance -150 ml 480 ml -300 ml Intake Oral 100 ml 480 ml 300 ml IV Total 0 ml Output Urine Total 250 ml 600 ml # Voids 1 2 1 3 # Bowel Movements 0 Result Diagram: 08/23/16 0820 08/23/16 0820 Imaging Last Impressions Chest X-Ray 08/20/16 0000 Signed Impressions: Service Date/Time: Saturday, August 20, 2016 14:29 - CONCLUSION: No acute disease. Tom Greene MD Ankle X-Ray 08/17/16 0000 Signed Impressions: Service Date/Time: Wednesday, August 17, 2016 12:22 - CONCLUSION: Postsurgical changes as above. Armand Franz MD Lower Extremity Ultrasound 08/16/16 0000 Signed Impressions: Service Date/Time: Tuesday, August 16, 2016 16:40 - CONCLUSION: Normal examination. Tony Moya MD Spleen Ultrasound 07/28/16 0000 Signed Impressions: Service Date/Time: Thursday, July 28, 2016 15:26 - CONCLUSION: Normal size spleen. Ramos Lo MD FACR Objective Remarks GENERAL: Pleasant well-nourished, well-developed patient in no apparent distress sitting in recliner. SKIN: Warm and dry. Blanching erythema noted around nail of each toe to both feet. No fluctuance or drainage. HEAD: Atraumatic. Normocephalic. CARDIOVASCULAR: Regular rate and rhythm. RESPIRATORY: Limited exam. No accessory muscle use. Clear to auscultation. Breath sounds equal bilaterally. MUSCULOSKELETAL: Thick splint to right lower extremity. Capillary refill normal in digits of both feet. No left lower extremity edema or calf pain. NEUROLOGICAL: Awake and alert. Normal speech. Gross sensation is decreased over toes of both feet. PSYCHIATRIC: Appropriate mood and affect; insight and judgment normal. Procedures EGD: Showed gastric antral ulcer 08/03: Removal broken hardware from right tibia and fibula, open treatment of right tibia and fibula nonunion, and iliac crest bone grafting with stem cell graft. Urinary Catheter: No Vascular Central Line Catheter: No A/P Problem List: (1) Hepatitis C ICD Code: B19.20 Status: Chronic (2) Cirrhosis of liver ICD Code: K74.60 Status: Chronic (3) Acute renal failure ICD Code: N17.9 Status: Acute (4) Fracture of distal end of tibia with fibula ICD Code: S82.309A Status: Chronic (5) Anemia ICD Code: D64.9 Status: Acute (6) Hypokalemia ICD Code: E87.6 Status: Acute (7) Thrombocytopenia ICD Code: D69.6 Status: Acute (8) Clostridium difficile colitis ICD Code: A04.7 Status: Acute (9) Gastric ulcer ICD Code: K25.9 Status: Acute (10) Pancytopenia ICD Code: D61.818 Status: Acute (11) Hepatic encephalopathy ICD Code: K72.90 Status: Acute Assessment and Plan Right tibia-fibula nonunion, Orthopedic managing, reevaluated patient today. Ortho PA applied fresh bandage ; has ordered orthotic practitioner to re-splint right ankle tomorrow. Status post ORIF revision 08/03/[address] Camacho. Nonweightbearing, will need rehabilitation. Pain control Oxycodone 5 mg every 6 hours as needed for pain COPD with shortness of breath and dyspnea, improved Chest x-ray did not indicate any acute abnormality Patient with good O2 saturations Continue incentive spirometry C. 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 Hemoglobin stable s/p multiple transfusion, S/p EGD 07/29/16, showed single non bleeding ulcer 3-7 mm in size gastric antrum. 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 s/p transfusion prior to surgery Liver cirrhosis, Hepatic encephalopathy with hyperammonemia, resolved Lactulose discontinued Continue rifaximin Hypertension, stable Continue propranolol and Aldactone. DVT prophylaxis: SCDs, pharmacological prophylaxis contraindicated Discharge Planning food and beverage manager following. Will require clearance by orthopedics. Alix Johnson Aug 25, 2016 14:45 Alex Almaguer DO Aug 26, 2016 00:58
--- NOTE | 2016-08-25 17:13 | PD.ORT.PN ---
Subjective Subjective Remarks Pain controlled. No new complaints Objective Vitals Vital Signs Date Time Temp Pulse Resp B/P Pulse Ox O2 Delivery O2 Flow Rate FiO2 08/25/16 08:00 98.9 66 16 128/76 92 08/25/16 02:56 20 08/24/16 20:00 96.6 63 18 145/80 94 I/O 08/24/16 08/24/16 08/24/16 08/25/16 08/25/16 08/25/16 06:59 14:59 22:59 06:59 14:59 22:59 Intake Total 100 ml 480 ml 300 ml 0 ml Output Total 250 ml 600 ml Balance -150 ml 480 ml -300 ml 0 ml Intake Oral 100 ml 480 ml 300 ml IV Total 0 ml 0 ml Output Urine Total 250 ml 600 ml # Voids 1 2 1 3 # Bowel Movements 0 Result Diagram: 08/23/16 0820 08/23/16 0820 Imaging Last 72 hours Impressions Ankle X-Ray 08/03/16 0000 Signed Impressions: Service Date/Time: Wednesday, August 03, 2016 16:54 - CONCLUSION: Status post ORIF of distal right tibial and fibular fractures resulting in satisfactory anatomic alignment. Edis Plascencia MD Objective Remarks Right lower extremity: Iliac crest bone graft site clean and dry. healed well. no drainage. short leg splint intact. splint removed and incisions visualized. Sutures removed and dressed with Xeroform and 4 x 4's. Splint is reapplied. clean and dry. healing well. no erythema or drainage. swelling minimal. Assessment & Plan Assessment and Plan 1) Right Distal Tibia nonunion with removal of hardware, open reduction internal fixation, stem cells and iliac crest bone graft - 08/03/16 strict NWB on RLE - 3 months from surgery orthtotech to resplint right ankle tomorrow fresh bandaged applied at bedside KIRK ROCA PA-C Aug 25, 2016 17:12
[2016-08-25 20:00] VITALS: BP 141/90; PULSE 62; RESP 18; TEMP 97.6; O2SAT 96
[2016-08-25] MEDS: traZODone HCL 50 MG TAB PO SCH (20:46)
[2016-08-26] MEDS: SUCRALFATE 1 GM/10 ML CUP PO SCH ×4 (06:26→21:48)
[2016-08-26] MEDS: CALCIUM/VITAMIN D 250 MG/125 U TAB PO SCH ×3 (07:59→17:01)
[2016-08-26] MEDS: RIFAXIMIN 550 MG TAB PO SCH ×2 (07:59→21:48)
[2016-08-26] MEDS: SPIRONOLACTONE 25 MG TAB PO SCH ×2 (07:59→21:48)
[2016-08-26] MEDS: PROPRANOLOL HCL 20 MG TAB PO SCH ×3 (07:59→17:04)
[2016-08-26] MEDS: POTASSIUM CHLORIDE 20 MEQ CONTROLLED RELEASE TAB PO SCH (07:59)
[2016-08-26 08:00] VITALS: BP 142/79; PULSE 66; RESP 18; TEMP 97.6; O2SAT 94
[2016-08-26] MEDS: PANTOPRAZOLE SOD 40 MG DELAYED RELEASE TAB PO SCH ×2 (08:00→21:48)
--- NOTE | 2016-08-26 10:57 | HHI.PR ---
Subjective Remarks Status post ORIF right lower extremity with stem cell and iliac crest bone graft. Patient still admits to loss of feeling in the left distal foot. Objective Vitals Vital Signs Date Time Temp Pulse Resp B/P Pulse Ox O2 Delivery O2 Flow Rate FiO2 08/26/16 08:00 97.6 66 18 142/79 94 08/26/16 07:41 18 08/25/16 20:00 97.6 62 18 141/90 96 I/O 08/25/16 08/25/16 08/25/16 08/26/16 08/26/16 08/26/16 07:00 15:00 23:00 07:00 15:00 23:00 Intake Total 300 ml 120 ml Output Total 600 ml Balance -300 ml 120 ml Intake Oral 300 ml 120 ml IV Total 0 ml Output Urine Total 600 ml # Voids 3 2 1 # Bowel Movements 0 1 Result Diagram: 08/23/1620 08/23/16 0820 Objective Remarks GENERAL: Pleasant well-nourished, well-developed patient in no apparent distress sitting in recliner. SKIN: Warm and dry. Blanching erythema noted around nail of each toe to both feet. CARDIOVASCULAR: Regular rate and rhythm. RESPIRATORY: Limited exam. No accessory muscle use. Clear to auscultation. Breath sounds equal bilaterally. MUSCULOSKELETAL: Thick splint to right lower extremity. Capillary refill normal in digits of both feet. Left foot normal in temperature without swelling. NEUROLOGICAL: Awake and alert. Normal speech. Gross sensation is decreased over toes of both feet. PSYCHIATRIC: Appropriate mood and affect; insight and judgment normal. Procedures 08/03: Removal broken hardware from right tibia and fibula, open treatment of right tibia and fibula nonunion, and iliac crest bone grafting with stem cell graft. Urinary Catheter: No Vascular Central Line Catheter: No A/P Problem List: (1) Hepatitis C ICD Code: B19.20 Status: Chronic (2) Cirrhosis of liver ICD Code: K74.60 Status: Chronic (3) Acute renal failure ICD Code: N17.9 Status: Acute (4) Fracture of distal end of tibia with fibula ICD Code: S82.309A Status: Chronic (5) Anemia ICD Code: D64.9 Status: Acute (6) Hypokalemia ICD Code: E87.6 Status: Acute (7) Thrombocytopenia ICD Code: D69.6 Status: Acute (8) Clostridium difficile colitis ICD Code: A04.7 Status: Acute (9) Gastric ulcer ICD Code: K25.9 Status: Acute (10) Pancytopenia ICD Code: D61.818 Status: Acute (11) Hepatic encephalopathy ICD Code: K72.90 Status: Acute Assessment and Plan Right tibia-fibula nonunion, Orthopedic managing, reevaluated patient today. Ortho PA applied fresh bandage ; has ordered orthopedic brace maker to re-splint right ankle tomorrow. Status post ORIF revision 08/03/[address] Camacho. Nonweightbearing, will need rehabilitation. Pain control Oxycodone 5 mg every 6 hours as needed for pain. Avoid acetaminophen use. COPD with shortness of breath and dyspnea, improved Chest x-ray did not indicate any acute abnormality Patient with good O2 saturations Continue incentive spirometry C. 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 Hemoglobin stable s/p multiple transfusion, S/p EGD 07/29/16, showed single non bleeding ulcer 3-7 mm in size gastric antrum. 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 s/p transfusion prior to surgery Liver cirrhosis, Hepatic encephalopathy with hyperammonemia. Ammonia 45 on . Lactulose discontinued Continue rifaximin Recheck ammonia level in the am Hypertension, stable Continue propranolol and Aldactone. Numbness bilateral feet: Patient has numbness in both feet. Although this might be expected in the right lower extremity since the patient underwent surgery, the patient has numbness in the distal aspect of her left foot but remaining left lower extremity is normal. H/o alcohol abuse. B12 was 1449 on . Folate was normal. Will check thiamine level, RPR, TSH, BMP, and Mg levels. Will start patient on Gabapentin 300 mg dose today and adjust regimen daily. H/o ulcer and gastric varices: Continue Carafate. DVT prophylaxis: SCDs, pharmacological prophylaxis contraindicated Discharge Planning manager medical affairs following. Will require clearance by orthopedics. Alix Johnson Aug 26, 2016 10:57 am Alex Almaguer DO Aug 26, 2016 6:48 pm
[2016-08-26 12:32] VITALS: BP 119/78; PULSE 61
[2016-08-26] MEDS ORDERED: GABAPENTIN 300 MG CAP PO ONE (18:00)
[2016-08-26] MEDS: traZODone HCL 50 MG TAB PO SCH (21:48)
[2016-08-27 00:35] VITALS: BP 142/85; PULSE 66; RESP 20; TEMP 98.1; O2SAT 97
[2016-08-27 04:41] LABS: BICARBONATE 27.8 MEQ/L (21.0-32.0); MAGNESIUM 1.6 MG/DL (1.5-2.5)
[2016-08-27] MEDS: SUCRALFATE 1 GM/10 ML CUP PO SCH ×4 (05:37→20:20)
[2016-08-27 08:00] VITALS: BP 125/75; PULSE 65; RESP 18; TEMP 98; O2SAT 97
[2016-08-27] MEDS: PANTOPRAZOLE SOD 40 MG DELAYED RELEASE TAB PO SCH ×2 (08:25→20:20)
[2016-08-27] MEDS: SPIRONOLACTONE 25 MG TAB PO SCH ×2 (08:25→20:20)
[2016-08-27] MEDS: RIFAXIMIN 550 MG TAB PO SCH ×2 (08:25→20:20)
[2016-08-27] MEDS: PROPRANOLOL HCL 20 MG TAB PO SCH ×3 (08:25→17:17)
[2016-08-27] MEDS: POTASSIUM CHLORIDE 20 MEQ CONTROLLED RELEASE TAB PO SCH (08:25)
[2016-08-27] MEDS: CALCIUM/VITAMIN D 250 MG/125 U TAB PO SCH ×3 (08:25→17:17)
--- NOTE | 2016-08-27 10:06 | HHI.PR ---
Subjective Remarks Status post ORIF right lower extremity with stem cell and iliac crest bone graft. Patient still has numbness in her feet. Objective Vitals Vital Signs Date Time Temp Pulse Resp B/P Pulse Ox O2 Delivery O2 Flow Rate FiO2 08/27/16 09:25 14 08/27/16 08:00 98.0 65 18 125/75 97 08/27/16 00:35 98.1 66 20 142/85 97 08/26/16 12:32 61 119/78 I/O 08/26/16 08/26/16 08/26/16 08/27/16 08/27/16 08/27/16 07:00 15:00 23:00 07:00 15:00 23:00 Intake Total 240 ml 480 ml 720 ml Balance 240 ml 480 ml 720 ml Intake Oral 240 ml 480 ml 720 ml # Voids 1 2 2 3 # Bowel Movements 0 0 0 Result Diagram: 08/23/1620 08/27/16 0417 Objective Remarks GENERAL: Pleasant well-nourished, well-developed patient in no apparent distress sitting in recliner. SKIN: Warm and dry. Blanching erythema noted around nail of each toe to both feet. CARDIOVASCULAR: Regular rate and rhythm. RESPIRATORY: Limited exam. No accessory muscle use. Clear to auscultation. Breath sounds equal bilaterally. GASTROINTESTINAL: Abdomen soft, nontender, nondistended. MUSCULOSKELETAL: Thick splint to right lower extremity. Capillary refill normal in digits of both feet. Left foot normal in temperature without swelling. NEUROLOGICAL: Awake and alert. Normal speech. Gross sensation is decreased over toes of both feet. PSYCHIATRIC: Appropriate mood and affect; insight and judgment normal. Procedures 08/03: Removal broken hardware from right tibia and fibula, open treatment of right tibia and fibula nonunion, and iliac crest bone grafting with stem cell graft. Urinary Catheter: No Vascular Central Line Catheter: No A/P Problem List: (1) Hepatitis C ICD Code: B19.20 Status: Chronic (2) Cirrhosis of liver ICD Code: K74.60 Status: Chronic (3) Acute renal failure ICD Code: N17.9 Status: Acute (4) Fracture of distal end of tibia with fibula ICD Code: S82.309A Status: Chronic (5) Anemia ICD Code: D64.9 Status: Acute (6) Hypokalemia ICD Code: E87.6 Status: Acute (7) Thrombocytopenia ICD Code: D69.6 Status: Acute (8) Clostridium difficile colitis ICD Code: A04.7 Status: Acute (9) Gastric ulcer ICD Code: K25.9 Status: Acute (10) Pancytopenia ICD Code: D61.818 Status: Acute (11) Hepatic encephalopathy ICD Code: K72.90 Status: Acute (12) Numbness in feet ICD Code: R20.0 Status: Acute Assessment and Plan Right tibia-fibula nonunion, Orthopedic managing, reevaluated patient today. Ortho PA applied fresh bandage ; has ordered dentofacial orthopedics dentist to re-splint right ankle tomorrow. Status post ORIF revision 08/03/[address] Camacho. Nonweightbearing, will need rehabilitation. Pain control Oxycodone 5 mg every 6 hours as needed for pain. Avoid acetaminophen use. COPD with shortness of breath and dyspnea, improved Chest x-ray did not indicate any acute abnormality Patient with good O2 saturations Continue incentive spirometry C. 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 Hemoglobin stable s/p multiple transfusion, S/p EGD 07/29/16, showed single non bleeding ulcer 3-7 mm in size gastric antrum. 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 s/p transfusion prior to surgery Liver cirrhosis, Hepatic encephalopathy with hyperammonemia. Ammonia 45 on . Lactulose discontinued Ammonia level 08/27 improved to 40. Continue Rifaximin Hypertension, stable Continue propranolol and Aldactone. Numbness bilateral feet: Patient has numbness in both feet. Although this might be expected in the right lower extremity since the patient underwent surgery, the patient has numbness in the distal aspect of her left foot but remaining left lower extremity is normal. H/o alcohol abuse. B12 was 1449 on . Folate was normal. -RPR nonreactive. -TSH mildly elevated at 5.080. Order free T3 and T4. -BMP normal. Mg stable but at low end of normal 1.6. Will order 1 g IV magnesium sulfate. -Thiamine level pending. -Change Gabapentin to 300 mg bid and adjust as needed. H/o ulcer and gastric varices: Continue Carafate. DVT prophylaxis: SCDs, pharmacological prophylaxis contraindicated Discharge Planning hris manager following. Will require clearance by orthopedics. Alix Johnson Aug 27, 2016 10:06
[2016-08-27] MEDS ORDERED: MAGNESIUM SULFATE 1 GM PREMIX 100 ML IV ONE (16:00)
[2016-08-27 19:11] LABS: FREE T3 2.35 PG/ML (2.18-3.98); FREE T4 1.47 NG/DL (0.76-1.46)
[2016-08-27 20:00] VITALS: BP 129/78; PULSE 61; RESP 20; TEMP 97.8; O2SAT 98
[2016-08-27] MEDS: traZODone HCL 50 MG TAB PO SCH (20:20)
[2016-08-27] MEDS: GABAPENTIN 300 MG CAP PO SCH (20:20)
[2016-08-28] MEDS: SUCRALFATE 1 GM/10 ML CUP PO SCH ×4 (06:47→21:34)
[2016-08-28 08:00] VITALS: BP 108/67; PULSE 65; RESP 20; TEMP 98.9; O2SAT 95
--- NOTE | 2016-08-28 09:52 | HHI.PR ---
Subjective Remarks Status post ORIF right lower extremity with stem cell and iliac crest bone graft. Patient still has numbness in her feet. Objective Vitals Vital Signs Date Time Temp Pulse Resp B/P Pulse Ox O2 Delivery O2 Flow Rate FiO2 08/28/16 08:00 98.9 65 20 108/67 95 08/27/16 20:00 97.8 61 20 129/78 98 08/27/16 15:13 14 I/O 08/27/16 08/27/16 08/27/16 08/28/16 08/28/16 08/28/16 06:59 14:59 22:59 06:59 14:59 22:59 Intake Total 720 ml 420 ml 600 ml 480 ml Balance 720 ml 420 ml 600 ml 480 ml Intake Oral 720 ml 420 ml 600 ml 480 ml # Voids 3 2 2 # Bowel Movements 0 0 0 Result Diagram: 08/27/16 0417 Imaging Last Impressions Chest X-Ray 08/20/16 0000 Signed Impressions: Service Date/Time: Saturday, August 20, 2016 14:29 - CONCLUSION: No acute disease. Tom Greene MD Ankle X-Ray 08/17/16 0000 Signed Impressions: Service Date/Time: Wednesday, August 17, 2016 12:22 - CONCLUSION: Postsurgical changes as above. Armand Franz MD Lower Extremity Ultrasound 08/16/16 0000 Signed Impressions: Service Date/Time: Tuesday, August 16, 2016 16:40 - CONCLUSION: Normal examination. Tony Moya MD Spleen Ultrasound 07/28/16 0000 Signed Impressions: Service Date/Time: Thursday, July 28, 2016 15:26 - CONCLUSION: Normal size spleen. Ramos Lo MD FACR Objective Remarks GENERAL: Pleasant well-nourished, well-developed patient in no apparent distress sleeping in bed. SKIN: Warm and dry. Blanching erythema noted around nail of each toe to both feet, same to a few fingers. No abscess formation. RESPIRATORY: No accessory muscle use. Clear to auscultation. Breath sounds equal bilaterally. MUSCULOSKELETAL: Thick splint to right lower extremity. Moves R toes. Left foot normal in temperature without swelling. NEUROLOGICAL: Awake and alert. Normal speech. Gross sensation is decreased over toes of R foot and distal portion of L foot. PSYCHIATRIC: Appropriate mood and affect; insight and judgment normal. Procedures 11/22: Removal broken hardware from right tibia and fibula, open treatment of right tibia and fibula nonunion, and iliac crest bone grafting with stem cell graft. Urinary Catheter: No Vascular Central Line Catheter: No A/P Problem List: (1) Hepatitis C ICD Code: B19.20 Status: Chronic (2) Cirrhosis of liver ICD Code: K74.60 Status: Chronic (3) Acute renal failure ICD Code: N17.9 Status: Acute (4) Fracture of distal end of tibia with fibula ICD Code: S82.309A Status: Chronic (5) Anemia ICD Code: D64.9 Status: Acute (6) Hypokalemia ICD Code: E87.6 Status: Acute (7) Thrombocytopenia ICD Code: D69.6 Status: Acute (8) Clostridium difficile colitis ICD Code: A04.7 Status: Acute (9) Gastric ulcer ICD Code: K25.9 Status: Acute (10) Pancytopenia ICD Code: D61.818 Status: Acute (11) Hepatic encephalopathy ICD Code: K72.90 Status: Acute (12) Numbness in feet ICD Code: R20.0 Status: Acute Assessment and Plan Right tibia-fibula nonunion, Orthopedic managing, reevaluated patient today. Ortho PA applied fresh bandage ; technical designer applied new splint. Status post ORIF revision 08/03/[address] Camacho. Nonweightbearing, will need rehabilitation. Pain control Oxycodone 5 mg every 6 hours as needed for pain. Avoid acetaminophen use. Start to wean in a few days. COPD with shortness of breath and dyspnea, improved Chest x-ray did not indicate any acute abnormality Patient with good O2 saturations Continue incentive spirometry C. 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 Hemoglobin stable s/p multiple transfusion, S/p EGD 07/29/16, showed single non bleeding ulcer 3-7 mm in size gastric antrum. 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 s/p transfusion prior to surgery Liver cirrhosis, Hepatic encephalopathy with hyperammonemia. Ammonia 45 on . Lactulose discontinued Ammonia level 12/16 improved to 40. Continue Rifaximin Hypertension, stable Continue propranolol and Aldactone. Numbness bilateral feet: Patient has numbness in both feet. Although this might be expected in the right lower extremity due to surgery, the patient has numbness in the distal aspect of her left foot but remaining left lower extremity is normal. H/o alcohol abuse. B12 was 1449 on 07/27. Folate was normal. -RPR nonreactive. -TSH mildly elevated at 5.080. Free T3 normal and Free T4 1.47, relatively normal. -BMP normal. Mg stable but at low end of normal 1.6. 1 g IV magnesium sulfate was initially ordered yesterday, but patient has no IV and it was not administered. Mg was rechecked today and improved to 1.8. Ideally I would like patient's Mg level above 2.0. Will start on po Magnesium chloride SR 128 mg daily x 3 days. Recheck Mg level on 08/30. -Thiamine level pending. -Continue Gabapentin 300 mg bid and monitor efficacy. Chronic Paronychia: Patient has skin changes around the nails to both feet and a few fingers that appears as chronic paronychia. No acute abscess. Patient admits to picking under her nails. -Patient to soak left foot and hands in warm water with Epsom salt. Keep dry otherwise. -Will order triamcinolone acetonide 0.1% ointment to be applied twice daily around each nail of both feet. Will avoid using on the hands. H/o ulcer and gastric varices: Continue Carafate. DVT prophylaxis: SCDs, pharmacological prophylaxis contraindicated. Discharge Planning manager registration following. Will require clearance by orthopedics. Alix Johnson Aug 28, 2016 09:52
[2016-08-28] MEDS: GABAPENTIN 300 MG CAP PO SCH ×2 (10:06→21:33)
[2016-08-28] MEDS: PANTOPRAZOLE SOD 40 MG DELAYED RELEASE TAB PO SCH ×2 (10:06→21:34)
[2016-08-28] MEDS: RIFAXIMIN 550 MG TAB PO SCH ×2 (10:06→21:33)
[2016-08-28] MEDS: POTASSIUM CHLORIDE 20 MEQ CONTROLLED RELEASE TAB PO SCH (10:06)
[2016-08-28] MEDS: PROPRANOLOL HCL 20 MG TAB PO SCH ×3 (10:07→17:45)
[2016-08-28] MEDS: CALCIUM/VITAMIN D 250 MG/125 U TAB PO SCH ×3 (10:07→17:45)
[2016-08-28] MEDS: SPIRONOLACTONE 25 MG TAB PO SCH ×2 (10:07→21:34)
[2016-08-28] MEDS: MAGNESIUM CHLORIDE 64 MG TAB PO SCH (11:00)
[2016-08-28] MEDS ORDERED: MAGNESIUM SULFATE TOPICAL ONE (12:00)
[2016-08-28 20:00] VITALS: BP 118/75; PULSE 64; RESP 16; TEMP 98.9; O2SAT 94
[2016-08-28] MEDS: traZODone HCL 50 MG TAB PO SCH (21:34)
[2016-08-28] MEDS: TRIAMCINOLONE ACETONIDE 0.1% OINT 15 GM TUBE TOPICAL SCH (21:34)
[2016-08-29] MEDS: SUCRALFATE 1 GM/10 ML CUP PO SCH ×4 (06:29→20:25)
[2016-08-29 08:00] VITALS: BP 119/71; PULSE 64; RESP 18; TEMP 96.4; O2SAT 97
[2016-08-29] MEDS: MAGNESIUM CHLORIDE 64 MG TAB PO SCH (09:00)
[2016-08-29] MEDS: CALCIUM/VITAMIN D 250 MG/125 U TAB PO SCH ×3 (09:33→18:00)
[2016-08-29] MEDS: PROPRANOLOL HCL 20 MG TAB PO SCH ×3 (09:33→18:00)
[2016-08-29] MEDS: RIFAXIMIN 550 MG TAB PO SCH ×2 (09:33→20:26)
[2016-08-29] MEDS: POTASSIUM CHLORIDE 20 MEQ CONTROLLED RELEASE TAB PO SCH (09:33)
[2016-08-29] MEDS: PANTOPRAZOLE SOD 40 MG DELAYED RELEASE TAB PO SCH ×2 (09:33→20:25)
[2016-08-29] MEDS: SPIRONOLACTONE 25 MG TAB PO SCH ×2 (09:33→20:25)
[2016-08-29] MEDS: TRIAMCINOLONE ACETONIDE 0.1% OINT 15 GM TUBE TOPICAL SCH ×2 (09:35→20:27)
[2016-08-29] MEDS: GABAPENTIN 300 MG CAP PO SCH ×2 (09:35→20:25)
--- NOTE | 2016-08-29 09:49 | HHI.PR ---
Subjective Remarks Status post ORIF right lower extremity. Admits to rash over palm of both hands which she has had on and off for years. Objective Vitals Vital Signs Date Time Temp Pulse Resp B/P Pulse Ox O2 Delivery O2 Flow Rate FiO2 08/29/16 08:00 96.4 64 18 119/71 97 08/28/16 20:00 98.9 64 16 118/75 94 08/28/16 13:03 18 I/O 08/28/16 08/28/16 08/28/16 08/29/16 08/29/16 08/29/16 07:00 15:00 23:00 07:00 15:00 23:00 Intake Total 480 ml 690 ml 100 ml Balance 480 ml 690 ml 100 ml Intake Oral 480 ml 690 ml 100 ml # Voids 2 4 0 # Bowel Movements 0 0 Result Diagram: 08/27/16 0417 Objective Remarks GENERAL: Pleasant well-nourished, well-developed patient in no apparent distress sleeping in bed. SKIN: Warm and dry. Red macular rash over both palms. There is a small spot of scaling skin over the L palm. Blanching erythema noted around nail of each toe to both feet, as well as left 4th and 5th fingers and right 5th finger. No abscess formation or pain. CARDIOVASCULAR: Regular rate and rhythm. RESPIRATORY: Limited exam. No accessory muscle use. Clear to auscultation. Breath sounds equal bilaterally. GASTROINTESTINAL: Abdomen soft, nontender, nondistended. MUSCULOSKELETAL: Thick splint to right lower extremity. Normal capillary refill in toes of both feet. NEUROLOGICAL: Awake and alert. Normal speech. PSYCHIATRIC: Appropriate mood and affect; insight and judgment normal. Procedures 08/03: Removal broken hardware from right tibia and fibula, open treatment of right tibia and fibula nonunion, and iliac crest bone grafting with stem cell graft. Urinary Catheter: No Vascular Central Line Catheter: No A/P Problem List: (1) Hepatitis C ICD Code: B19.20 Status: Chronic (2) Cirrhosis of liver ICD Code: K74.60 Status: Chronic (3) Acute renal failure ICD Code: N17.9 Status: Acute (4) Fracture of distal end of tibia with fibula ICD Code: S82.309A Status: Chronic (5) Anemia ICD Code: D64.9 Status: Acute (6) Hypokalemia ICD Code: E87.6 Status: Acute (7) Thrombocytopenia ICD Code: D69.6 Status: Acute (8) Clostridium difficile colitis ICD Code: A04.7 Status: Acute (9) Gastric ulcer ICD Code: K25.9 Status: Acute (10) Pancytopenia ICD Code: D61.818 Status: Acute (11) Hepatic encephalopathy ICD Code: K72.90 Status: Acute (12) Numbness in feet ICD Code: R20.0 Status: Acute (13) Chronic paronychia of finger ICD Code: L03.019 Status: Acute (14) Chronic paronychia of toe ICD Code: L03.039 Status: Acute Assessment and Plan Right tibia-fibula nonunion, Orthopedic managing, reevaluated patient today. Ortho PA applied fresh bandage ; chief orthoptist applied new splint. Status post ORIF revision 08/03/[address] Camacho. Nonweightbearing, will need rehabilitation. Pain control: Avoid acetaminophen use. Wean every few days. Oxycodone 5 mg every 6 hours as needed for pain changed to every 8 hours today 08/29. COPD with shortness of breath and dyspnea, improved Chest x-ray did not indicate any acute abnormality Patient with good O2 saturations Continue incentive spirometry C. 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 Hemoglobin stable s/p multiple transfusion, S/p EGD 07/29/16, showed single non bleeding ulcer 3-7 mm in size gastric antrum. 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 s/p transfusion prior to surgery Liver cirrhosis, Hepatic encephalopathy with hyperammonemia. Ammonia 45 on . Lactulose discontinued Ammonia level 08/27 improved to 40. Continue Rifaximin Hypertension, stable Continue propranolol and Aldactone. Numbness bilateral feet: Patient has numbness in both feet. Although this might be expected in the right lower extremity due to surgery, the patient has numbness in the distal aspect of her left foot but remaining left lower extremity is normal. H/o alcohol abuse. B12 was 1449 on 07/27. Folate was normal. -RPR nonreactive. -TSH mildly elevated at 5.080. Free T3 normal and Free T4 1.47, relatively normal. -BMP normal. Mg stable but at low end of normal 1.6. 1 g IV magnesium sulfate was initially ordered yesterday, but patient has no IV and it was not administered. Mg was rechecked today and improved to 1.8. Ideally I would like patient's Mg level above 2.0. Continue po Magnesium chloride SR 128 mg daily x total 3 days. Recheck Mg level tomorrow on 08/30. -Thiamine level pending. -Continue Gabapentin 300 mg bid and monitor efficacy. Chronic Paronychia: Patient has skin changes around the nails to both feet and a few fingers that appears as chronic paronychia. No acute abscess. Patient admits to picking under and biting her fingernails as well as having ingrown toenails. -Patient to soak left foot and hands in warm water with Epsom salt. Keep dry otherwise. -Continue triamcinolone acetonide 0.1% ointment to be applied twice daily around each nail of both feet. Will avoid using on the hands. -Patient advised against biting her nails due to risk of infection. H/o ulcer and gastric varices: Continue Carafate. Hand rash: chronic. Could be dyshidrotic eczema although there are no papules or pustules present. RPR non-reactive. Nothing acute to do. Patient states she has had it for years intermittently occurring. DVT prophylaxis: SCDs, pharmacological prophylaxis contraindicated. Discharge Planning real estate firm manager following. Will require clearance by orthopedics. Alix Johnson Aug 29, 2016 09:49
[2016-08-29] MEDS: traZODone HCL 50 MG TAB PO SCH (20:25)
[2016-08-29 21:15] VITALS: BP 117/76; PULSE 63; RESP 16; TEMP 98.6; O2SAT 94
[2016-08-30] MEDS: SUCRALFATE 1 GM/10 ML CUP PO SCH ×4 (06:24→21:00)
[2016-08-30 08:00] VITALS: BP 120/70; PULSE 65; RESP 16; TEMP 97.7; O2SAT 95
[2016-08-30] MEDS: PANTOPRAZOLE SOD 40 MG DELAYED RELEASE TAB PO SCH ×2 (08:21→20:59)
[2016-08-30] MEDS: GABAPENTIN 300 MG CAP PO SCH ×2 (08:21→21:00)
[2016-08-30] MEDS: SPIRONOLACTONE 25 MG TAB PO SCH ×2 (08:21→21:00)
[2016-08-30] MEDS: RIFAXIMIN 550 MG TAB PO SCH ×2 (08:21→21:00)
[2016-08-30] MEDS: CALCIUM/VITAMIN D 250 MG/125 U TAB PO SCH ×3 (08:21→17:36)
[2016-08-30] MEDS: POTASSIUM CHLORIDE 20 MEQ CONTROLLED RELEASE TAB PO SCH (08:22)
[2016-08-30] MEDS: TRIAMCINOLONE ACETONIDE 0.1% OINT 15 GM TUBE TOPICAL SCH ×2 (08:27→21:09)
[2016-08-30] MEDS: PROPRANOLOL HCL 20 MG TAB PO SCH ×3 (10:03→17:36)
[2016-08-30] MEDS: MAGNESIUM CHLORIDE 64 MG TAB PO SCH (10:03)
--- NOTE | 2016-08-30 10:57 | HHI.PR ---
Subjective Remarks Status post ORIF right lower extremity. Patient states the sensation is improving in her left foot. She denies numbness over the plantar aspect of the left foot. Objective Vitals Vital Signs Date Time Temp Pulse Resp B/P Pulse Ox O2 Delivery O2 Flow Rate FiO2 08/30/16 08:00 97.7 65 16 120/70 95 08/29/16 21:15 98.6 63 16 117/76 94 08/29/16 11:28 18 I/O 08/29/16 08/29/16 08/29/16 08/30/16 08/30/16 08/30/16 07:00 15:00 23:00 07:00 15:00 23:00 Intake Total 1520 ml 850 ml 200 ml Output Total 250 ml Balance 1520 ml 850 ml -50 ml Intake Oral 1520 ml 850 ml 200 ml Output Urine Total 250 ml # Voids 2 3 1 # Bowel Movements 0 Result Diagram: 08/27/16 0417 Imaging Last Impressions Chest X-Ray 08/20/16 0000 Signed Impressions: Service Date/Time: Saturday, August 20, 2016 14:29 - CONCLUSION: No acute disease. Tom Greene MD Ankle X-Ray 08/17/16 0000 Signed Impressions: Service Date/Time: Wednesday, August 17, 2016 12:22 - CONCLUSION: Postsurgical changes as above. Armand Franz MD Lower Extremity Ultrasound 08/16/16 0000 Signed Impressions: Service Date/Time: Tuesday, August 16, 2016 16:40 - CONCLUSION: Normal examination. Tony Moya MD Spleen Ultrasound 07/28/16 0000 Signed Impressions: Service Date/Time: Thursday, July 28, 2016 15:26 - CONCLUSION: Normal size spleen. Ramos Lo MD FACR Objective Remarks GENERAL: Pleasant well-nourished, well-developed patient in no apparent distress. SKIN: Warm and dry. Erythema noted around nail of each toe to both feet, as well as left 4th and 5th fingers and right 5th finger. No abscess formation. CARDIOVASCULAR: Regular rate and rhythm. RESPIRATORY: Limited exam. No accessory muscle use. Clear to auscultation. Breath sounds equal bilaterally. GASTROINTESTINAL: Abdomen soft, nontender, nondistended. MUSCULOSKELETAL: Thick splint to right lower extremity. Normal capillary refill in toes of both feet. NEUROLOGICAL: Awake and alert. Gross sensation still decreased over toes of both feet, but sensation is mildly improved in L foot. Normal speech. PSYCHIATRIC: Appropriate mood and affect; insight and judgment normal. Procedures 08/03: Removal broken hardware from right tibia and fibula, open treatment of right tibia and fibula nonunion, and iliac crest bone grafting with stem cell graft. Urinary Catheter: No Vascular Central Line Catheter: No A/P Problem List: (1) Hepatitis C ICD Code: B19.20 Status: Chronic (2) Cirrhosis of liver ICD Code: K74.60 Status: Chronic (3) Acute renal failure ICD Code: N17.9 Status: Acute (4) Fracture of distal end of tibia with fibula ICD Code: S82.309A Status: Chronic (5) Anemia ICD Code: D64.9 Status: Acute (6) Hypokalemia ICD Code: E87.6 Status: Acute (7) Thrombocytopenia ICD Code: D69.6 Status: Acute (8) Clostridium difficile colitis ICD Code: A04.7 Status: Acute (9) Gastric ulcer ICD Code: K25.9 Status: Acute (10) Pancytopenia ICD Code: D61.818 Status: Acute (11) Hepatic encephalopathy ICD Code: K72.90 Status: Acute (12) Numbness in feet ICD Code: R20.0 Status: Acute (13) Chronic paronychia of finger ICD Code: L03.019 Status: Acute (14) Chronic paronychia of toe ICD Code: L03.039 Status: Acute Assessment and Plan Right tibia-fibula nonunion, Orthopedic managing, reevaluated patient today. Ortho PA applied fresh bandage ; orthotist or prosthetist applied new splint. Status post ORIF revision 08/03/[address] Camacho. Nonweightbearing, will need rehabilitation. Pain control: Avoid acetaminophen use. Wean every few days. Oxycodone 5 mg every 6 hours as needed for pain changed to every 8 hours on 08/29. COPD with shortness of breath and dyspnea, improved Chest x-ray did not indicate any acute abnormality Patient with good O2 saturations Continue incentive spirometry C. 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 Hemoglobin stable s/p multiple transfusion, S/p EGD 07/29/16, showed single non bleeding ulcer 3-7 mm in size gastric antrum. 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 s/p transfusion prior to surgery Liver cirrhosis, Hepatic encephalopathy with hyperammonemia. Ammonia 45 on . Lactulose discontinued Ammonia level 08/27 improved to 40. Continue Rifaximin Hypertension, stable Continue propranolol and Aldactone. Numbness bilateral feet: Mildly improved in L foot. Patient has numbness in both feet. Although this might be expected in the right lower extremity due to surgery, the patient has numbness in the distal aspect of her left foot but remaining left lower extremity is normal. H/o alcohol abuse. B12 was 1449 on . Folate was normal. -RPR nonreactive. -TSH mildly elevated at 5.080. Free T3 normal and Free T4 1.47, relatively normal. -BMP normal. Mg stable but at low end of normal. Mg was rechecked today and improved to 1.9. Ideally I would like patient's Mg level above 2.0. S/p Magnesium chloride SR 128 mg po daily x 3 days; will continue for another 2 days and recheck Mg level on 09/01. -Thiamine level pending. -Continue Gabapentin 300 mg bid. Chronic Paronychia: Patient has skin changes around the nails to both feet and a few fingers that appears as chronic paronychia. No acute abscess. Patient admits to picking under and biting her fingernails as well as having ingrown toenails. -S/p soaking in warm water with Epsom salt. -Continue triamcinolone acetonide 0.1% ointment to be applied twice daily around each nail of both feet. Will avoid using on the hands. -Patient advised against biting her nails due to risk of infection. H/o ulcer and gastric varices: Continue Carafate. Hand rash: chronic. Could be dyshidrotic eczema although there are no papules or pustules present. RPR non-reactive. Nothing acute to do. Patient states she has had it for years intermittently occurring. DVT prophylaxis: SCDs, pharmacological prophylaxis contraindicated. Discharge Planning residential care facility manager following. Will require clearance by orthopedics. Alix Johnson Aug 30, 2016 10:56
[2016-08-30 20:00] VITALS: BP 109/69; PULSE 59; RESP 20; TEMP 98.5; O2SAT 97
[2016-08-30] MEDS: traZODone HCL 50 MG TAB PO SCH (20:59)
[2016-08-31] MEDS: SUCRALFATE 1 GM/10 ML CUP PO SCH ×4 (06:38→21:24)
[2016-08-31 08:00] VITALS: BP 120/69; PULSE 90; RESP 18; TEMP 98.2; O2SAT 93
[2016-08-31] MEDS: CALCIUM/VITAMIN D 250 MG/125 U TAB PO SCH ×3 (09:00→16:39)
[2016-08-31] MEDS: RIFAXIMIN 550 MG TAB PO SCH ×2 (09:00→21:24)
[2016-08-31] MEDS: GABAPENTIN 300 MG CAP PO SCH ×2 (09:00→21:25)
[2016-08-31] MEDS: TRIAMCINOLONE ACETONIDE 0.1% OINT 15 GM TUBE TOPICAL SCH ×2 (09:00→21:26)
[2016-08-31] MEDS: POTASSIUM CHLORIDE 20 MEQ CONTROLLED RELEASE TAB PO SCH (09:01)
[2016-08-31] MEDS: SPIRONOLACTONE 25 MG TAB PO SCH ×2 (09:01→21:25)
[2016-08-31] MEDS: MAGNESIUM CHLORIDE 64 MG TAB PO SCH (09:01)
[2016-08-31] MEDS: PANTOPRAZOLE SOD 40 MG DELAYED RELEASE TAB PO SCH ×2 (09:01→21:24)
[2016-08-31] MEDS: PROPRANOLOL HCL 20 MG TAB PO SCH ×3 (09:01→16:39)
--- NOTE | 2016-08-31 15:18 | HHI.PR ---
Subjective Remarks Patient seen and examined today. Patient denies any new complaints. No change in clinical status. Objective Vitals Vital Signs Date Time Temp Pulse Resp B/P Pulse Ox O2 Delivery O2 Flow Rate FiO2 08/31/16 08:00 98.2 90 18 120/69 93 08/30/16 20:00 98.5 59 20 109/69 97 I/O 08/30/16 08/30/16 08/30/16 08/31/16 08/31/16 08/31/16 06:59 14:59 22:59 06:59 14:59 22:59 Intake Total 200 ml 240 ml 480 ml 240 ml Output Total 250 ml Balance -50 ml 240 ml 480 ml 240 ml Intake Oral 200 ml 240 ml 480 ml 240 ml Output Urine Total 250 ml # Voids 1 2 1 1 # Bowel Movements 1 0 0 Result Diagram: 08/27/16 0417 Objective Remarks GENERAL: Well-developed, well-nourished, in no acute distress. alert and orientated HEENT: Head is normocephalic without any lesions or masses noted. Facial features are symmetric. Eyes: Pupils equal round reactive to light. Extraocular muscles are intact. Conjunctivae were clear NECK: Supple without any masses. Trachea midline no deviation. No JVD, CARDIAC: Regular rhythm, regular rate. S1/S2 are heard. No murmurs gallops or rubs. LUNGS: Clear to auscultation bilaterally. No wheeze, rhonchi or rales. No use of accessory muscles on inspiration or expiration. ABDOMEN: Soft, nontender. Nondistended. Bowel sounds heard in all 4 quadrants. No organomegaly or masses. Negative rebound, negative guarding EXTREMITIES: No edema, pulses are equal bilaterally. No cyanosis or clubbing. Right lower extremity in splint NEUROLOGY: Mood and affect appear appropriate. Cranial nerves II through XII grossly intact. Moving all extremities, speech is clear Procedures 08/03: Removal broken hardware from right tibia and fibula, open treatment of right tibia and fibula nonunion, and iliac crest bone grafting with stem cell graft. Urinary Catheter: No Vascular Central Line Catheter: No A/P Assessment and Plan Right tibia-fibula nonunion, Orthopedic managing Status post ORIF revision 08/03/[address] Camacho. Nonweightbearing, will need rehabilitation. Pain control OxyContin 5 mg every 6 hours as needed for pain Numbness bilateral feet: Patient with a workup with RPR, thyroid functions, BMP which appear to be relatively unremarkable Patient being treated for hypomagnesemia, without improvement of her numbness Obtain MRI of the lumbar spine to rule out any radiculopathy Continue Gabapentin 300 mg bid. COPD with shortness of breath and dyspnea, improved Chest x-ray did not indicate any acute abnormality Patient with good O2 saturations Continue incentive spirometry C. 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 Hemoglobin stable s/p multiple transfusion, S/p EGD 07/29/16, showed single non bleeding ulcer 3-7 mm in size gastric antrum. 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 s/p transfusion prior to surgery Liver cirrhosis, Hepatic encephalopathy with hyperammonemia, resolved Lactulose discontinued Continue rifaximin Hypertension, stable Continue propranolol and Aldactone. DVT prophylaxis: SCDs, pharmacological prophylaxis contraindicated Discharge Planning Case management in charge of discharge planning 08/24/16 1435 FOLLOWING FOR ABILITY TO RETURN HOME TO THE HOUSE [place] [employer] [place] HAS ROLLING WALKER PATIENT HAS NO SNF BENEFITS NOR [facility] THERAPY BENEFITS, ACUTE REHAB HAS DENIED. ANSHU DEL ROSARIO LPN/CM/CHARGE Isaac Leal Aug 31, 2016 15:18
[2016-08-31 20:00] VITALS: BP 138/73; PULSE 64; RESP 18; TEMP 98.9; O2SAT 92
[2016-08-31] MEDS: traZODone HCL 50 MG TAB PO SCH (21:25)
[2016-09-01] MEDS: SUCRALFATE 1 GM/10 ML CUP PO SCH ×4 (06:17→21:26)
[2016-09-01 08:00] VITALS: BP 109/63; PULSE 63; RESP 16; TEMP 96.8; O2SAT 95
[2016-09-01] MEDS: TRIAMCINOLONE ACETONIDE 0.1% OINT 15 GM TUBE TOPICAL SCH ×2 (09:00→21:27)
--- NOTE | 2016-09-01 09:17 | HHI.PR ---
Subjective Remarks Patient seen and examined today. Patient denies any new complaints. Patient still having numbness in both feet, states that she still having loose stools. Objective Vitals Vital Signs Date Time Temp Pulse Resp B/P Pulse Ox O2 Delivery O2 Flow Rate FiO2 09/01/16 08:00 96.8 63 16 109/63 95 09/01/16 07:32 18 08/31/16 20:00 98.9 64 18 138/73 92 I/O 08/31/16 08/31/16 08/31/16 09/01/16 09/01/16 09/01/16 07:00 15:00 23:00 07:00 15:00 23:00 Intake Total 240 ml 1450 ml 250 ml Output Total 550 ml 500 ml Balance 240 ml 900 ml -250 ml Intake Oral 240 ml 1450 ml 250 ml Output Urine Total 550 ml 500 ml # Voids 1 3 2 # Bowel Movements 0 0 0 Objective Remarks GENERAL: Well-developed, well-nourished, in no acute distress. alert and orientated HEENT: Head is normocephalic without any lesions or masses noted. Facial features are symmetric. Eyes: Pupils equal round reactive to light. Extraocular muscles are intact. Conjunctivae were clear NECK: Supple without any masses. Trachea midline no deviation. No JVD, CARDIAC: Regular rhythm, regular rate. S1/S2 are heard. No murmurs gallops or rubs. LUNGS: Clear to auscultation bilaterally. No wheeze, rhonchi or rales. No use of accessory muscles on inspiration or expiration. ABDOMEN: Soft, nontender. Nondistended. Bowel sounds heard in all 4 quadrants. No organomegaly or masses. Negative rebound, negative guarding EXTREMITIES: No edema, pulses are equal bilaterally. No cyanosis or clubbing. Right lower extremity in splint NEUROLOGY: Mood and affect appear appropriate. Cranial nerves II through XII grossly intact. Moving all extremities, speech is clear Procedures 08/03: Removal broken hardware from right tibia and fibula, open treatment of right tibia and fibula nonunion, and iliac crest bone grafting with stem cell graft. Urinary Catheter: No Vascular Central Line Catheter: No A/P Assessment and Plan Right tibia-fibula nonunion, Orthopedic managing Status post ORIF revision 08/03/[address] Camacho. Nonweightbearing, will need rehabilitation. Pain control OxyContin 5 mg every 6 hours as needed for pain Numbness bilateral feet: Patient with a workup with RPR, thyroid functions, BMP which appear to be relatively unremarkable Patient being treated for hypomagnesemia, without improvement of her numbness Obtain MRI of the lumbar spine to rule out any radiculopathy Continue Gabapentin 300 mg bid. COPD with shortness of breath and dyspnea, improved Chest x-ray did not indicate any acute abnormality Patient with good O2 saturations Continue incentive spirometry C. difficile colitis, treated Treated with oral Flagyl for total of 14 days Continue monitor stool output to see if repeat culture needs to be performed Repeat C. 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 Hemoglobin stable s/p multiple transfusion, S/p EGD 07/29/16, showed single non bleeding ulcer 3-7 mm in size gastric antrum. 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 s/p transfusion prior to surgery Liver cirrhosis, Hepatic encephalopathy with hyperammonemia, resolved Lactulose discontinued Continue rifaximin Hypertension, stable Continue propranolol and Aldactone. DVT prophylaxis: SCDs, pharmacological prophylaxis contraindicated Discharge Planning Case management in charge of discharge planning 08/24/16 1435 FOLLOWING FOR ABILITY TO RETURN HOME TO THE HOUSE [place] [employer] [place] HAS [place]LLING WALK[place] PATIENT HAS NO SNF BENEFITS NOR [facility] THERAPY BENEFITS, ACUTE REHAB HAS DENIED. ANSHU DEL ROSARIO LPN/CM/CHARGE Isaac Leal Sep 01, 2016 09:17
[2016-09-01] MEDS: GABAPENTIN 300 MG CAP PO SCH ×2 (09:39→21:27)
[2016-09-01] MEDS: RIFAXIMIN 550 MG TAB PO SCH ×2 (09:39→21:27)
[2016-09-01] MEDS: PANTOPRAZOLE SOD 40 MG DELAYED RELEASE TAB PO SCH ×2 (09:39→21:27)
[2016-09-01] MEDS: SPIRONOLACTONE 25 MG TAB PO SCH ×2 (09:39→21:27)
[2016-09-01] MEDS: CALCIUM/VITAMIN D 250 MG/125 U TAB PO SCH ×3 (09:39→16:32)
[2016-09-01] MEDS: POTASSIUM CHLORIDE 20 MEQ CONTROLLED RELEASE TAB PO SCH (09:39)
[2016-09-01] MEDS: PROPRANOLOL HCL 20 MG TAB PO SCH ×3 (09:39→16:32)
[2016-09-01] MEDS: MAGNESIUM CHLORIDE 64 MG TAB PO SCH (09:39)
--- NOTE | 2016-09-01 11:55 | RADHPO ---
EXAM DATE/TIME: 09/01/2016 11:04 [place] COMPARISON: No previous studies available for comparison. INDICATIONS : Numbness bilateral lower extremities. MEDICAL HISTORY : Chronic obstructive pulmonary disease. Hypertension. Cirrhosis. SURGICAL HISTORY : section. ORIF right ankle. ENCOUNTER: Subsequent ACUITY: 2 day PAIN SCORE: 3/10 LOCATION: back. TECHNIQUE: Multiplanar multisequence MRI of the lumbar spine was performed without contrast. FINDINGS: The most caudal appearing lumbar vertebra is numbered as L5. VERTEBRAE: Homogeneous signal. Normal alignment. CONUS: Normal level and configuration. T12-L1: The thecal sac has a normal diameter. No evidence of disc bulge or protrusion. The neural foramina are patent bilaterally. L1-L2: The thecal sac has a normal diameter. No evidence of disc bulge or protrusion. The neural f oramina are patent bilaterally. L2-L3: The thecal sac has a normal diameter. No evidence of disc bulge or protrusion. The neural f oramina are patent bilaterally. L3-L4: The thecal sac has a normal diameter. No evidence of disc bulge or protrusion. The neural f oramina are patent bilaterally. L4-L5: There is mild disc bulging causing minimal flattening of the intrathecal space without signifi cant neural compression. L5-S1: There is moderate disc bulge present causing some flattening of the intrathecal space with mil d bilateral neural foramina encroachment. Small stenosis at this level is mild. Minimal changes are present facets. SI joints are normal. CONCLUSION: Signal intensity is normal in the conus. Mild disc bulging at L4-5 with moderate dis c bulge at L5-S1. This does not look like a cause of bilateral extremity numbness. Correlation is suggested. Ramos Lo MD FACR on September 01, 2016 at 11:50 Board Certified Radiologist. This report was verified electronically.
[2016-09-01 18:33] LABS: C. DIFF EPI 027 PRESUMPTIVE NEGATIVE (NEGATIVE); C. DIFF TOXIN PCR NEGATIVE (NEGATIVE)
[2016-09-01 19:15] VITALS: BP 140/82; PULSE 62; RESP 20; TEMP 96.1; O2SAT 97
[2016-09-01] MEDS: traZODone HCL 50 MG TAB PO SCH (21:26)
[2016-09-02] MEDS: SUCRALFATE 1 GM/10 ML CUP PO SCH ×4 (06:17→20:44)
[2016-09-02 08:00] VITALS: BP 118/73; PULSE 61; RESP 18; TEMP 98.3; O2SAT 98
[2016-09-02] MEDS: SPIRONOLACTONE 25 MG TAB PO SCH ×2 (08:15→20:44)
[2016-09-02] MEDS: RIFAXIMIN 550 MG TAB PO SCH ×2 (08:15→20:44)
[2016-09-02] MEDS: GABAPENTIN 300 MG CAP PO SCH ×2 (08:16→20:44)
[2016-09-02] MEDS: CALCIUM/VITAMIN D 250 MG/125 U TAB PO SCH ×3 (08:16→17:31)
[2016-09-02] MEDS: POTASSIUM CHLORIDE 20 MEQ CONTROLLED RELEASE TAB PO SCH (08:16)
[2016-09-02] MEDS: PROPRANOLOL HCL 20 MG TAB PO SCH ×3 (08:16→17:31)
[2016-09-02] MEDS: TRIAMCINOLONE ACETONIDE 0.1% OINT 15 GM TUBE TOPICAL SCH ×2 (08:16→20:44)
[2016-09-02] MEDS: PANTOPRAZOLE SOD 40 MG DELAYED RELEASE TAB PO SCH ×2 (08:16→20:44)
--- NOTE | 2016-09-02 08:50 | HHI.PR ---
Subjective Remarks Patient seen and examined today. Patient denies any new complaints. No change in clinical status. Reviewed MRI results and C. difficile culture results the patient Objective Vitals Vital Signs Date Time Temp Pulse Resp B/P Pulse Ox O2 Delivery O2 Flow Rate FiO2 09/01/16 19:15 96.1 62 20 140/82 97 I/O 09/01/16 09/01/16 09/01/16 09/02/16 09/02/16 09/02/16 07:00 15:00 23:00 07:00 15:00 23:00 Intake Total 250 ml 720 ml 1050 ml 360 ml Output Total 500 ml Balance -250 ml 720 ml 1050 ml 360 ml Intake Oral 250 ml 720 ml 1050 ml 360 ml Output Urine Total 500 ml # Voids 2 3 1 2 # Bowel Movements 0 1 Objective Remarks GENERAL: Well-developed, well-nourished, in no acute distress. alert and orientated HEENT: Head is normocephalic without any lesions or masses noted. Facial features are symmetric. Eyes: Pupils equal round reactive to light. Extraocular muscles are intact. Conjunctivae were clear NECK: Supple without any masses. Trachea midline no deviation. No JVD, CARDIAC: Regular rhythm, regular rate. S1/S2 are heard. No murmurs gallops or rubs. LUNGS: Clear to auscultation bilaterally. No wheeze, rhonchi or rales. No use of accessory muscles on inspiration or expiration. ABDOMEN: Soft, nontender. Nondistended. Bowel sounds heard in all 4 quadrants. No organomegaly or masses. Negative rebound, negative guarding EXTREMITIES: No edema, pulses are equal bilaterally. No cyanosis or clubbing. Right lower extremity in splint NEUROLOGY: Mood and affect appear appropriate. Cranial nerves II through XII grossly intact. Moving all extremities, speech is clear Procedures 08/03: Removal broken hardware from right tibia and fibula, open treatment of right tibia and fibula nonunion, and iliac crest bone grafting with stem cell graft. Urinary Catheter: No Vascular Central Line Catheter: No A/P Assessment and Plan Right tibia-fibula nonunion, Orthopedic managing Status post ORIF revision 08/03/[address] Camacho. Nonweightbearing, will need rehabilitation. Pain control OxyContin 5 mg every 6 hours as needed for pain Numbness bilateral feet: Persistent Patient with a workup with RPR, thyroid functions, BMP which appear to be relatively unremarkable Patient being treated for hypomagnesemia, without improvement of her numbness MRI lumbar spine indicates normal conus, mild disc bulge at L4/L5 with moderate disc bulge at L5-S1 no etiology of bilateral extremity numbness Continue Gabapentin 300 mg bid. COPD with shortness of breath and dyspnea, improved Chest x-ray did not indicate any acute abnormality Patient with good O2 saturations Continue incentive spirometry C. difficile colitis, treated Treated with oral Flagyl for total of 14 days Continue monitor stool output to see if repeat culture needs to be performed Repeat C. 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 Hemoglobin stable s/p multiple transfusion, S/p EGD 07/29/16, showed single non bleeding ulcer 3-7 mm in size gastric antrum. 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 s/p transfusion prior to surgery Liver cirrhosis, Hepatic encephalopathy with hyperammonemia, resolved Lactulose discontinued Continue rifaximin Hypertension, stable Continue propranolol and Aldactone. DVT prophylaxis: SCDs, pharmacological prophylaxis contraindicated Discharge Planning Case management in charge of discharge planning 08/24/16 1435 FOLLOWING FOR ABILITY TO RETURN HOME TO THE HOUSE SHE [place]ENTS [employer] [place] HAS ROLLING WALKER PATIENT HAS NO SNF BENEFITS NOR [facility] THERAPY BENEFITS, ACUTE REHAB HAS DENIED. ANSHU DEL ROSARIO LPN/KE/Isaac Craven Sep 02, 2016 08:50
[2016-09-02 13:00] VITALS: BP 120/86; PULSE 67
[2016-09-02 17:30] VITALS: BP 130/80; PULSE 67
[2016-09-02 19:15] VITALS: BP 126/78; PULSE 62; RESP 18; TEMP 97.6; O2SAT 98
[2016-09-02] MEDS: traZODone HCL 50 MG TAB PO SCH (20:44)
[2016-09-03] MEDS: SUCRALFATE 1 GM/10 ML CUP PO SCH ×4 (05:51→21:26)
[2016-09-03 08:00] VITALS: BP 120/72; PULSE 86; RESP 18; TEMP 98; O2SAT 97
[2016-09-03] MEDS: CALCIUM/VITAMIN D 250 MG/125 U TAB PO SCH ×3 (08:16→17:57)
[2016-09-03] MEDS: PANTOPRAZOLE SOD 40 MG DELAYED RELEASE TAB PO SCH ×2 (08:16→20:52)
[2016-09-03] MEDS: POTASSIUM CHLORIDE 20 MEQ CONTROLLED RELEASE TAB PO SCH (08:16)
[2016-09-03] MEDS: PROPRANOLOL HCL 20 MG TAB PO SCH ×3 (08:16→17:57)
[2016-09-03] MEDS: SPIRONOLACTONE 25 MG TAB PO SCH ×2 (08:16→20:52)
[2016-09-03] MEDS: RIFAXIMIN 550 MG TAB PO SCH ×2 (08:16→20:52)
[2016-09-03] MEDS: TRIAMCINOLONE ACETONIDE 0.1% OINT 15 GM TUBE TOPICAL SCH ×2 (08:17→21:26)
[2016-09-03] MEDS: GABAPENTIN 300 MG CAP PO SCH ×2 (08:17→20:52)
--- NOTE | 2016-09-03 14:46 | HHI.PR ---
Subjective Remarks Patient seen and examined today. Patient denies any new complaints. No change in clinical status Objective Vitals Vital Signs Date Time Temp Pulse Resp B/P Pulse Ox O2 Delivery O2 Flow Rate FiO2 09/03/16 09:17 18 09/03/16 08:00 98.0 86 18 120/72 97 09/02/16 19:15 97.6 62 18 126/78 98 09/02/16 17:30 67 130/80 I/O 09/02/16 09/02/16 09/02/16 09/03/16 09/03/16 09/03/16 07:00 15:00 23:00 07:00 15:00 23:00 Intake Total 360 ml 1320 ml 720 ml 840 ml Balance 360 ml 1320 ml 720 ml 840 ml Intake Oral 360 ml 1320 ml 720 ml 840 ml # Voids 2 2 1 2 # Bowel Movements 1 Objective Remarks GENERAL: Well-developed, well-nourished, in no acute distress. alert and orientated HEENT: Head is normocephalic without any lesions or masses noted. Facial features are symmetric. Eyes: Pupils equal round reactive to light. Extraocular muscles are intact. Conjunctivae were clear NECK: Supple without any masses. Trachea midline no deviation. No JVD, CARDIAC: Regular rhythm, regular rate. S1/S2 are heard. No murmurs gallops or rubs. LUNGS: Clear to auscultation bilaterally. No wheeze, rhonchi or rales. No use of accessory muscles on inspiration or expiration. ABDOMEN: Soft, nontender. Nondistended. Bowel sounds heard in all 4 quadrants. No organomegaly or masses. Negative rebound, negative guarding EXTREMITIES: No edema, pulses are equal bilaterally. No cyanosis or clubbing. Right lower extremity in splint NEUROLOGY: Mood and affect appear appropriate. Cranial nerves II through XII grossly intact. Moving all extremities, speech is clear Procedures 08/03: Removal broken hardware from right tibia and fibula, open treatment of right tibia and fibula nonunion, and iliac crest bone grafting with stem cell graft. Urinary Catheter: No Vascular Central Line Catheter: No A/P Assessment and Plan Right tibia-fibula nonunion, Orthopedic managing Status post ORIF revision 08/03/[address] Camacho. Nonweightbearing, will need rehabilitation. Pain control OxyContin 5 mg every 6 hours as needed for pain Numbness bilateral feet: Persistent Patient with a workup with RPR, thyroid functions, BMP which appear to be relatively unremarkable Patient being treated for hypomagnesemia, without improvement of her numbness MRI lumbar spine indicates normal conus, mild disc bulge at L4/L5 with moderate disc bulge at L5-S1 no etiology of bilateral extremity numbness Continue Gabapentin 300 mg bid. COPD with shortness of breath and dyspnea, improved Chest x-ray did not indicate any acute abnormality Patient with good O2 saturations Continue incentive spirometry C. difficile colitis, treated Treated with oral Flagyl for total of 14 days Continue monitor stool output to see if repeat culture needs to be performed Repeat C. 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 Hemoglobin stable s/p multiple transfusion, S/p EGD 07/29/16, showed single non bleeding ulcer 3-7 mm in size gastric antrum. 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 s/p transfusion prior to surgery Liver cirrhosis, Hepatic encephalopathy with hyperammonemia, resolved Lactulose discontinued Continue rifaximin Hypertension, stable Continue propranolol and Aldactone. DVT prophylaxis: SCDs, pharmacological prophylaxis contraindicated Discharge Planning Case management in charge of discharge planning 08/24/16 1435 FOLLOWING FOR ABILITY TO RETURN HOME TO THE HOUSE [place] [employer] [place] HAS ROLL[place] WALKER PATIENT HAS NO SNF BENEFITS NOR [facility] THERAPY BENEFITS, ACUTE REHAB HAS DENIED. ANSHU DEL ROSARIO LPN/CM/CHARGE Isaac Leal Sep 03, 2016 14:46
[2016-09-03 20:00] VITALS: BP 130/72; PULSE 69; RESP 20; TEMP 97.3; O2SAT 96
[2016-09-03] MEDS: traZODone HCL 50 MG TAB PO SCH (20:52)
[2016-09-04] MEDS: SUCRALFATE 1 GM/10 ML CUP PO SCH ×4 (06:36→20:33)
[2016-09-04 08:00] VITALS: BP 140/82; PULSE 66; RESP 17; TEMP 95.9; O2SAT 95
[2016-09-04] MEDS: PANTOPRAZOLE SOD 40 MG DELAYED RELEASE TAB PO SCH ×2 (09:05→20:33)
[2016-09-04] MEDS: SPIRONOLACTONE 25 MG TAB PO SCH ×2 (09:05→20:33)
[2016-09-04] MEDS: POTASSIUM CHLORIDE 20 MEQ CONTROLLED RELEASE TAB PO SCH (09:05)
[2016-09-04] MEDS: GABAPENTIN 300 MG CAP PO SCH ×2 (09:05→20:33)
[2016-09-04] MEDS: CALCIUM/VITAMIN D 250 MG/125 U TAB PO SCH ×3 (09:05→16:26)
[2016-09-04] MEDS: RIFAXIMIN 550 MG TAB PO SCH ×2 (09:05→20:33)
[2016-09-04] MEDS: PROPRANOLOL HCL 20 MG TAB PO SCH ×3 (09:05→16:26)
[2016-09-04] MEDS: TRIAMCINOLONE ACETONIDE 0.1% OINT 15 GM TUBE TOPICAL SCH ×2 (09:06→20:33)
--- NOTE | 2016-09-04 10:15 | HHI.PR ---
Subjective Remarks Patient seen and examined today. Patient denies any new complaints. No change in clinical status. Objective Vitals Vital Signs Date Time Temp Pulse Resp B/P Pulse Ox O2 Delivery O2 Flow Rate FiO2 09/04/16 08:00 95.9 66 17 140/82 95 09/03/16 20:06 18 09/03/16 20:00 97.3 69 20 130/72 96 I/O 09/03/16 09/03/16 09/03/16 09/04/16 09/04/16 09/04/16 07:00 15:00 23:00 07:00 15:00 23:00 Intake Total 720 ml 840 ml 120 ml 440 ml Balance 720 ml 840 ml 120 ml 440 ml Intake Oral 720 ml 840 ml 120 ml 440 ml # Voids 1 2 1 4 # Bowel Movements 1 0 Objective Remarks GENERAL: Well-developed, well-nourished, in no acute distress. alert and orientated HEENT: Head is normocephalic without any lesions or masses noted. Facial features are symmetric. Eyes: Pupils equal round reactive to light. Extraocular muscles are intact. Conjunctivae were clear NECK: Supple without any masses. Trachea midline no deviation. No JVD, CARDIAC: Regular rhythm, regular rate. S1/S2 are heard. No murmurs gallops or rubs. LUNGS: Clear to auscultation bilaterally. No wheeze, rhonchi or rales. No use of accessory muscles on inspiration or expiration. ABDOMEN: Soft, nontender. Nondistended. Bowel sounds heard in all 4 quadrants. No organomegaly or masses. Negative rebound, negative guarding EXTREMITIES: No edema, pulses are equal bilaterally. No cyanosis or clubbing. Right lower extremity in splint NEUROLOGY: Mood and affect appear appropriate. Cranial nerves II through XII grossly intact. Moving all extremities, speech is clear Procedures 08/03: Removal broken hardware from right tibia and fibula, open treatment of right tibia and fibula nonunion, and iliac crest bone grafting with stem cell graft. Urinary Catheter: No Vascular Central Line Catheter: No A/P Assessment and Plan Right tibia-fibula nonunion, Orthopedic managing Status post ORIF revision 08/03/[address] Camacho. Nonweightbearing, will need rehabilitation. Pain control OxyContin 5 mg every 6 hours as needed for pain Numbness bilateral feet: Persistent Patient with a workup with RPR, thyroid functions, BMP which appear to be relatively unremarkable Patient being treated for hypomagnesemia, without improvement of her numbness MRI lumbar spine indicates normal conus, mild disc bulge at L4/L5 with moderate disc bulge at L5-S1 no etiology of bilateral extremity numbness Continue Gabapentin 300 mg bid. COPD with shortness of breath and dyspnea, improved Chest x-ray did not indicate any acute abnormality Patient with good O2 saturations Continue incentive spirometry C. difficile colitis, treated Treated with oral Flagyl for total of 14 days Continue monitor stool output to see if repeat culture needs to be performed Repeat C. 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 Hemoglobin stable s/p multiple transfusion, S/p EGD 07/29/16, showed single non bleeding ulcer 3-7 mm in size gastric antrum. 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 s/p transfusion prior to surgery Liver cirrhosis, Hepatic encephalopathy with hyperammonemia, resolved Lactulose discontinued Continue rifaximin Hypertension, stable Continue propranolol and Aldactone. DVT prophylaxis: SCDs, pharmacological prophylaxis contraindicated Discharge Planning Case management in charge of discharge planning 08/24/16 1435 FOLLOWING FOR ABILITY TO RETURN HOME TO THE HOUSE SHE [place] [employer] [place]. HAS ROLLING WALKER PATIENT HAS NO SNF BENEFITS NOR [facility] THERAPY BENEFITS, ACUTE REHAB HAS DENIED. ANSHU DEL ROSARIO LPN/KE/Isaac Craven Sep 04, 2016 10:15
[2016-09-04 20:00] VITALS: BP 118/78; PULSE 61; RESP 19; TEMP 96.7; O2SAT 97
[2016-09-04] MEDS: traZODone HCL 50 MG TAB PO SCH (20:33)
[2016-09-05] MEDS: SUCRALFATE 1 GM/10 ML CUP PO SCH ×4 (06:47→20:15)
[2016-09-05 08:00] VITALS: BP 121/78; PULSE 70; RESP 20; TEMP 96.9; O2SAT 95
[2016-09-05] MEDS: RIFAXIMIN 550 MG TAB PO SCH ×2 (09:00→20:15)
[2016-09-05] MEDS: TRIAMCINOLONE ACETONIDE 0.1% OINT 15 GM TUBE TOPICAL SCH ×2 (09:00→20:15)
--- NOTE | 2016-09-05 09:29 | HHI.PR ---
Subjective Remarks Patient seen and examined today. Patient denies any new complaints. No change in clinical status. Objective Vitals Vital Signs Date Time Temp Pulse Resp B/P Pulse Ox O2 Delivery O2 Flow Rate FiO2 09/05/16 08:00 96.9 70 20 121/78 95 09/04/16 20:00 96.7 61 19 118/78 97 09/04/16 17:31 12 I/O 09/04/16 09/04/16 09/04/16 09/05/16 09/05/16 09/05/16 07:00 15:00 23:00 07:00 15:00 23:00 Intake Total 440 ml 300 ml 480 ml Output Total 300 ml Balance 440 ml 0 ml 480 ml Intake Oral 440 ml 300 ml 480 ml Output Urine Total 300 ml # Voids 4 2 2 # Bowel Movements 0 0 0 2 Objective Remarks GENERAL: Well-developed, well-nourished, in no acute distress. alert and orientated HEENT: Head is normocephalic without any lesions or masses noted. Facial features are symmetric. Eyes: Pupils equal round reactive to light. Extraocular muscles are intact. Conjunctivae were clear NECK: Supple without any masses. Trachea midline no deviation. No JVD, CARDIAC: Regular rhythm, regular rate. S1/S2 are heard. No murmurs gallops or rubs. LUNGS: Clear to auscultation bilaterally. No wheeze, rhonchi or rales. No use of accessory muscles on inspiration or expiration. ABDOMEN: Soft, nontender. Nondistended. Bowel sounds heard in all 4 quadrants. No organomegaly or masses. Negative rebound, negative guarding EXTREMITIES: No edema, pulses are equal bilaterally. No cyanosis or clubbing. Right lower extremity in splint NEUROLOGY: Mood and affect appear appropriate. Cranial nerves II through XII grossly intact. Moving all extremities, speech is clear Procedures 08/03: Removal broken hardware from right tibia and fibula, open treatment of right tibia and fibula nonunion, and iliac crest bone grafting with stem cell graft. Urinary Catheter: No Vascular Central Line Catheter: No A/P Assessment and Plan Right tibia-fibula nonunion, Orthopedic managing Status post ORIF revision 08/03/[address] Camacho. Nonweightbearing, will need rehabilitation. Pain control OxyContin 5 mg every 6 hours as needed for pain Numbness bilateral feet: Persistent Patient with a workup with RPR, thyroid functions, BMP which appear to be relatively unremarkable Patient being treated for hypomagnesemia, without improvement of her numbness MRI lumbar spine indicates normal conus, mild disc bulge at L4/L5 with moderate disc bulge at L5-S1 no etiology of bilateral extremity numbness Continue Gabapentin 300 mg bid. COPD with shortness of breath and dyspnea, improved Chest x-ray did not indicate any acute abnormality Patient with good O2 saturations Continue incentive spirometry C. difficile colitis, treated Treated with oral Flagyl for total of 14 days Continue monitor stool output to see if repeat culture needs to be performed Repeat C. 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 Hemoglobin stable s/p multiple transfusion, S/p EGD 07/29/16, showed single non bleeding ulcer 3-7 mm in size gastric antrum. 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 s/p transfusion prior to surgery Liver cirrhosis, Hepatic encephalopathy with hyperammonemia, resolved Lactulose discontinued Continue rifaximin Hypertension, stable Continue propranolol and Aldactone. DVT prophylaxis: SCDs, pharmacological prophylaxis contraindicated Discharge Planning Case management in charge of discharge planning 08/24/16 1435 FOLLOWING FOR ABILITY TO RETURN HOME TO THE [place] [employer] [place] W[place] PATIENT HAS NO SNF BENEFITS NOR [facility] THERAPY BENEFITS, ACUTE REHAB HAS DENIED. ANSHU DEL ROSARIO LPN/CM/CHARGE Isaac Leal Sep 05, 2016 09:29
[2016-09-05] MEDS: PROPRANOLOL HCL 20 MG TAB PO SCH ×3 (09:51→17:32)
[2016-09-05] MEDS: PANTOPRAZOLE SOD 40 MG DELAYED RELEASE TAB PO SCH ×2 (09:51→20:15)
[2016-09-05] MEDS: CALCIUM/VITAMIN D 250 MG/125 U TAB PO SCH ×3 (09:51→17:32)
[2016-09-05] MEDS: SPIRONOLACTONE 25 MG TAB PO SCH ×2 (09:51→20:15)
[2016-09-05] MEDS: POTASSIUM CHLORIDE 20 MEQ CONTROLLED RELEASE TAB PO SCH (09:52)
[2016-09-05] MEDS: GABAPENTIN 300 MG CAP PO SCH ×2 (09:52→20:15)
[2016-09-05 20:00] VITALS: BP 118/75; PULSE 61; RESP 20; TEMP 98.1; O2SAT 96
[2016-09-05] MEDS: traZODone HCL 50 MG TAB PO SCH (20:15)
[2016-09-06] MEDS: SUCRALFATE 1 GM/10 ML CUP PO SCH ×4 (06:26→21:10)
[2016-09-06 08:00] VITALS: BP 108/72; PULSE 70; RESP 16; TEMP 97.6; O2SAT 95
[2016-09-06] MEDS: RIFAXIMIN 550 MG TAB PO SCH ×2 (09:56→21:10)
[2016-09-06] MEDS: PANTOPRAZOLE SOD 40 MG DELAYED RELEASE TAB PO SCH ×2 (09:56→21:10)
[2016-09-06] MEDS: GABAPENTIN 300 MG CAP PO SCH ×2 (09:56→21:11)
[2016-09-06] MEDS: SPIRONOLACTONE 25 MG TAB PO SCH ×2 (09:56→21:11)
[2016-09-06] MEDS: PROPRANOLOL HCL 20 MG TAB PO SCH ×3 (09:56→16:56)
[2016-09-06] MEDS: CALCIUM/VITAMIN D 250 MG/125 U TAB PO SCH ×3 (09:57→16:56)
[2016-09-06] MEDS: POTASSIUM CHLORIDE 20 MEQ CONTROLLED RELEASE TAB PO SCH (09:57)
[2016-09-06] MEDS: TRIAMCINOLONE ACETONIDE 0.1% OINT 15 GM TUBE TOPICAL SCH (09:59)
[2016-09-06 13:03] VITALS: BP 112/71; PULSE 69
--- NOTE | 2016-09-06 15:01 | HHI.PR ---
Subjective Remarks Patient seen and examined today with Dr. Ng. No change in clinical status. Patient does indicate that her ingrown toenails are really starting to bother her. Requesting management Objective Vitals Vital Signs Date Time Temp Pulse Resp B/P Pulse Ox O2 Delivery O2 Flow Rate FiO2 09/06/16 13:03 69 112/71 09/06/16 08:00 97.6 70 16 108/72 95 09/05/16 20:00 98.1 61 20 118/75 96 Manual Cuff/Auscultation I/O 09/05/16 09/05/16 09/05/16 09/06/16 09/06/16 09/06/16 07:00 15:00 23:00 07:00 15:00 23:00 Intake Total 930 ml 210 ml 120 ml Balance 930 ml 210 ml 120 ml Intake Oral 930 ml 210 ml 120 ml # Voids 2 3 2 1 # Bowel Movements 2 0 Objective Remarks GENERAL: Well-developed, well-nourished, in no acute distress. alert and orientated HEENT: Head is normocephalic without any lesions or masses noted. Facial features are symmetric. Eyes: Pupils equal round reactive to light. Extraocular muscles are intact. Conjunctivae were clear NECK: Supple without any masses. Trachea midline no deviation. No JVD, CARDIAC: Regular rhythm, regular rate. S1/S2 are heard. No murmurs gallops or rubs. LUNGS: Clear to auscultation bilaterally. No wheeze, rhonchi or rales. No use of accessory muscles on inspiration or expiration. ABDOMEN: Soft, nontender. Nondistended. Bowel sounds heard in all 4 quadrants. No organomegaly or masses. Negative rebound, negative guarding EXTREMITIES: No edema, pulses are equal bilaterally. No cyanosis or clubbing. Right lower extremity in splint NEUROLOGY: Mood and affect appear appropriate. Cranial nerves II through XII grossly intact. Moving all extremities, speech is clear RIGHT LOWER EXTREMITY: Right great toe does have medial nail abnormality with erythema, edema, exudate. LEFT LOWER EXTREMITY: Left great toe also has nail changes medially and laterally indicating possible paronychia and redness, infection Procedures 08/03: Removal broken hardware from right tibia and fibula, open treatment of right tibia and fibula nonunion, and iliac crest bone grafting with stem cell graft. Urinary Catheter: No Vascular Central Line Catheter: No A/P Assessment and Plan Right tibia-fibula nonunion, Orthopedic managing Status post ORIF revision 08/03/[address] Camacho. Nonweightbearing, will need rehabilitation. Pain control OxyContin 5 mg every 6 hours as needed for pain Bilateral great toe infection, paronychia Consult podiatry for recommendations Numbness bilateral feet: Persistent Patient with a workup with RPR, thyroid functions, BMP which appear to be relatively unremarkable Patient being treated for hypomagnesemia, without improvement of her numbness MRI lumbar spine indicates normal conus, mild disc bulge at L4/L5 with moderate disc bulge at L5-S1 no etiology of bilateral extremity numbness Continue Gabapentin 300 mg bid. COPD with shortness of breath and dyspnea, improved Chest x-ray did not indicate any acute abnormality Patient with good O2 saturations Continue incentive spirometry C. difficile colitis, treated Treated with oral Flagyl for total of 14 days Continue monitor stool output to see if repeat culture needs to be performed Repeat C. 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 Hemoglobin stable s/p multiple transfusion, S/p EGD 07/29/16, showed single non bleeding ulcer 3-7 mm in size gastric antrum. 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 s/p transfusion prior to surgery Liver cirrhosis, Hepatic encephalopathy with hyperammonemia, resolved Lactulose discontinued Continue rifaximin Hypertension, stable Continue propranolol and Aldactone. DVT prophylaxis: SCDs, pharmacological prophylaxis contraindicated Discharge Planning Case management in charge of discharge planning 08/24/16 1495 FOLLOWING FOR ABILITY TO RETURN HOME TO THE HOUSE SHE RENTS [employer] [place]. HAS ROLLING WALKER PATIENT HAS NO SNF BENEFITS NOR [facility] BENEFITS, ACUTE REHAB HAS DENIED. ANSHU DEL ROSARIO LPN/CM/CHARGE Isaac Leal Sep 06, 2016 15:00
[2016-09-06 20:00] VITALS: BP 108/67; PULSE 66; RESP 20; TEMP 97.5; O2SAT 98
[2016-09-06] MEDS: traZODone HCL 50 MG TAB PO SCH (21:11)
[2016-09-06] MEDS: MUPIROCIN 2% OINT 22 GM TUBE TOPICAL SCH (21:36)
[2016-09-07] MEDS: SUCRALFATE 1 GM/10 ML CUP PO SCH ×4 (06:25→20:35)
[2016-09-07 08:00] VITALS: BP_SYST 121; BP_SYST 75; BP_DIAS 75; PULSE 68; RESP 16; TEMP 98.2; O2SAT 95
[2016-09-07] MEDS: SPIRONOLACTONE 25 MG TAB PO SCH ×2 (08:38→20:36)
[2016-09-07] MEDS: RIFAXIMIN 550 MG TAB PO SCH ×2 (08:38→20:36)
[2016-09-07] MEDS: PROPRANOLOL HCL 20 MG TAB PO SCH ×3 (08:38→17:28)
[2016-09-07] MEDS: PANTOPRAZOLE SOD 40 MG DELAYED RELEASE TAB PO SCH ×2 (08:38→20:35)
[2016-09-07] MEDS: CALCIUM/VITAMIN D 250 MG/125 U TAB PO SCH ×3 (08:38→17:28)
[2016-09-07] MEDS: POTASSIUM CHLORIDE 20 MEQ CONTROLLED RELEASE TAB PO SCH (08:38)
[2016-09-07] MEDS: GABAPENTIN 300 MG CAP PO SCH ×2 (08:38→20:36)
[2016-09-07] MEDS: MUPIROCIN 2% OINT 22 GM TUBE TOPICAL SCH ×2 (08:39→20:36)
--- NOTE | 2016-09-07 10:36 | HHI.PR ---
Subjective Remarks Status post ORIF right lower extremity. Lower extremity numbness slightly improved. Patient seen with Dr. Ng. Objective Vitals Vital Signs Date Time Temp Pulse Resp B/P Pulse Ox O2 Delivery O2 Flow Rate FiO2 09/07/16 08:00 98.2 68 16 75/ 95 09/06/16 20:00 97.5 66 20 108/67 98 09/06/16 13:03 69 112/71 I/O 09/06/16 09/06/16 09/06/16 09/07/16 09/07/16 09/07/16 07:00 15:00 23:00 07:00 15:00 23:00 Intake Total 360 ml 240 ml Balance 360 ml 240 ml Intake Oral 360 ml 240 ml # Voids 2 2 # Bowel Movements 0 0 Imaging Last Impressions Lumbar Spine MRI 09/01/16 0000 Signed Impressions: Service Date/Time: Thursday, September 01, 2016 11:04 - CONCLUSION: Signal intensity is normal in the conus. Mild disc bulging at L4-5 with moderate disc bulge at L5-S1. This does not look like a cause of bilateral extremity numbness. Correlation is suggested. Ramos Lo MD FACR Chest X-Ray 08/20/16 0000 Signed Impressions: Service Date/Time: Saturday, August 20, 2016 14:29 - CONCLUSION: No acute disease. Tom Greene MD Ankle X-Ray 08/17/16 0000 Signed Impressions: Service Date/Time: Wednesday, August 17, 2016 12:22 - CONCLUSION: Postsurgical changes as above. Armand Franz MD Lower Extremity Ultrasound 08/16/16 0000 Signed Impressions: Service Date/Time: Tuesday, August 16, 2016 16:40 - CONCLUSION: Normal examination. Tony Moya MD Spleen Ultrasound 07/28/16 0000 Signed Impressions: Service Date/Time: Thursday, July 28, 2016 15:26 - CONCLUSION: Normal size spleen. Ramos Lo MD FACR Objective Remarks GENERAL: Pleasant well-nourished, well-developed patient in no apparent distress sitting in recliner. SKIN: Warm and dry. Erythema noted around nails of each toe to both feet. Toes on L foot painful to touch. CARDIOVASCULAR: Regular rate and rhythm. RESPIRATORY: Limited exam. No accessory muscle use. Clear to auscultation. Breath sounds equal bilaterally. MUSCULOSKELETAL: Splint to right lower extremity. Moves toes of R foot. NEUROLOGICAL: Awake and alert. Normal speech. PSYCHIATRIC: Appropriate mood and affect; insight and judgment normal. Procedures 08/03: Removal broken hardware from right tibia and fibula, open treatment of right tibia and fibula nonunion, and iliac crest bone grafting with stem cell graft. A/P Problem List: (1) Hepatitis C ICD Code: B19.20 Status: Chronic (2) Cirrhosis of liver ICD Code: K74.60 Status: Chronic (3) Acute renal failure ICD Code: N17.9 Status: Acute (4) Fracture of distal end of tibia with fibula ICD Code: S82.309A Status: Chronic (5) Anemia ICD Code: D64.9 Status: Acute (6) Hypokalemia ICD Code: E87.6 Status: Acute (7) Thrombocytopenia ICD Code: D69.6 Status: Acute (8) Clostridium difficile colitis ICD Code: A04.7 Status: Acute (9) Gastric ulcer ICD Code: K25.9 Status: Acute (10) Pancytopenia ICD Code: D61.818 Status: Acute (11) Hepatic encephalopathy ICD Code: K72.90 Status: Acute (12) Numbness in feet ICD Code: R20.0 Status: Acute (13) Chronic paronychia of finger ICD Code: L03.019 Status: Acute (14) Chronic paronychia of toe ICD Code: L03.039 Status: Acute Assessment and Plan Right tibia-fibula nonunion, Orthopedics managing. Status post ORIF revision 08/03/[address] Camacho. Nonweightbearing, will need rehabilitation. Pain control: Avoid acetaminophen use. Wean. Oxycodone 5 mg every 8 hours as needed for pain COPD with shortness of breath and dyspnea, improved Chest x-ray did not indicate any acute abnormality Patient with good O2 saturations Continue incentive spirometry C. difficile colitis, treated Treated with oral Flagyl for total of 14 days Repeat C.diff test 09/01 negative. 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 Hemoglobin stable s/p multiple transfusion, S/p EGD 07/29/16, showed single non bleeding ulcer 3-7 mm in size gastric antrum. 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 s/p transfusion prior to surgery Liver cirrhosis, Hepatic encephalopathy with hyperammonemia. Ammonia 45 on . Lactulose discontinued Ammonia level 08/27 improved to 40. Continue Rifaximin Hypertension, stable Continue propranolol and Aldactone. Numbness bilateral feet: Only minimal improvement. Patient has numbness in both feet. H/o alcohol abuse. B12 was 1449 on 07/27. Folate was normal. -RPR nonreactive. -TSH mildly elevated at 5.080. Free T3 normal and Free T4 1.47, relatively normal. -S/p Magnesium repletion. -Thiamine level at the lower limit of normal. -Continue Gabapentin 300 mg bid. -MRI lumbar spine indicates normal conus, mild disc bulge at L4/L5 with moderate disc bulge at L5-S1 no etiology of bilateral lower extremity numbness Paronychia: Patient has skin changes around the nails to both feet and a few fingers that appears as chronic paronychia. No acute abscess was evident initially, but colleague noted some exudate and possible acute infection of great toes yesterday. Patient admits to picking under and biting her fingernails as well as having ingrown toenails. -S/p soaking in warm water with Epsom salt. -S/p triamcinolone acetonide 0.1% ointment. -Patient advised against biting her nails due to risk of infection. -Podiatry consult pending. H/o ulcer and gastric varices: Continue Carafate. Hand rash: chronic. Could be dyshidrotic eczema although there are no papules or pustules present. RPR non-reactive. Nothing acute to do. Patient states she has had it for years intermittently occurring. DVT prophylaxis: SCDs, pharmacological prophylaxis contraindicated. Discharge Planning dependency case manager following. Will require clearance by orthopedics. Alix Johnson Sep 07, 2016 10:36
[2016-09-07 20:00] VITALS: BP 128/78; PULSE 66; RESP 20; TEMP 98.4; O2SAT 97
[2016-09-07] MEDS: traZODone HCL 50 MG TAB PO SCH (20:35)
[2016-09-08] MEDS: SUCRALFATE 1 GM/10 ML CUP PO SCH ×4 (06:31→20:49)
[2016-09-08 08:00] VITALS: BP 120/71; PULSE 61; RESP 16; TEMP 97.3; O2SAT 96
[2016-09-08] MEDS: RIFAXIMIN 550 MG TAB PO SCH ×2 (08:28→20:49)
[2016-09-08] MEDS: GABAPENTIN 300 MG CAP PO SCH ×2 (08:28→20:49)
[2016-09-08] MEDS: PROPRANOLOL HCL 20 MG TAB PO SCH ×3 (08:28→17:38)
[2016-09-08] MEDS: POTASSIUM CHLORIDE 20 MEQ CONTROLLED RELEASE TAB PO SCH (08:28)
[2016-09-08] MEDS: SPIRONOLACTONE 25 MG TAB PO SCH ×2 (08:28→20:49)
[2016-09-08] MEDS: PANTOPRAZOLE SOD 40 MG DELAYED RELEASE TAB PO SCH ×2 (08:29→20:49)
[2016-09-08] MEDS: CALCIUM/VITAMIN D 250 MG/125 U TAB PO SCH ×3 (08:29→17:38)
[2016-09-08] MEDS: MUPIROCIN 2% OINT 22 GM TUBE TOPICAL SCH ×2 (08:33→20:50)
--- NOTE | 2016-09-08 11:52 | HHI.PR ---
Subjective Remarks Status post ORIF right lower extremity. Patient tells me that after she has a bowel movement she wipes sufficiently but will find stains on the pad and is concerned about this, but she also admits to some of this occurring with flatulence. She denies any actual bowel incontinence and states that she will actually hold her voids sometimes in order not to bother the staff to assist her in using the bathroom. She denies any urinary incontinence. Denies any saddle anesthesia. Denies any focal weakness in the left leg. Objective Vitals Vital Signs Date Time Temp Pulse Resp B/P Pulse Ox O2 Delivery O2 Flow Rate FiO2 09/08/16 09:54 16 09/08/16 08:00 97.3 61 16 120/71 96 09/07/16 20:00 98.4 66 20 128/78 97 I/O 09/07/16 09/07/16 09/07/16 09/08/16 09/08/16 09/08/16 07:00 15:00 23:00 07:00 15:00 23:00 Intake Total 240 ml 720 ml 220 ml 60 ml Balance 240 ml 720 ml 220 ml 60 ml Intake Oral 240 ml 720 ml 220 ml 60 ml # Voids 2 2 1 1 # Bowel Movements 0 0 0 1 Objective Remarks GENERAL: Pleasant well-nourished, well-developed patient in no apparent distress sitting in recliner. SKIN: Warm and dry. Erythema noted around nails of toes to both feet. CARDIOVASCULAR: Regular rate and rhythm. RESPIRATORY: Limited exam. No accessory muscle use. Clear to auscultation. Breath sounds equal bilaterally. GASTROINTESTINAL: Abdomen soft, nontender, nondistended. MUSCULOSKELETAL: Splint to right lower extremity. 2+ left DP and TP pulses. NEUROLOGICAL: Awake and alert. 5/5 plantar flexion and dorsiflexion left foot. Sensation grossly intact over the left lower leg. Normal speech. PSYCHIATRIC: Appropriate mood and affect; insight and judgment normal. Procedures 08/03: Removal broken hardware from right tibia and fibula, open treatment of right tibia and fibula nonunion, and iliac crest bone grafting with stem cell graft. Urinary Catheter: No Vascular Central Line Catheter: No A/P Problem List: (1) Hepatitis C ICD Code: B19.20 Status: Chronic (2) Cirrhosis of liver ICD Code: K74.60 Status: Chronic (3) Acute renal failure ICD Code: N17.9 Status: Acute (4) Fracture of distal end of tibia with fibula ICD Code: S82.309A Status: Chronic (5) Anemia ICD Code: D64.9 Status: Acute (6) Hypokalemia ICD Code: E87.6 Status: Acute (7) Thrombocytopenia ICD Code: D69.6 Status: Acute (8) Clostridium difficile colitis ICD Code: A04.7 Status: Acute (9) Gastric ulcer ICD Code: K25.9 Status: Acute (10) Pancytopenia ICD Code: D61.818 Status: Acute (11) Hepatic encephalopathy ICD Code: K72.90 Status: Acute (12) Numbness in feet ICD Code: R20.0 Status: Acute (13) Chronic paronychia of finger ICD Code: L03.019 Status: Acute (14) Chronic paronychia of toe ICD Code: L03.039 Status: Acute Assessment and Plan Right tibia-fibula nonunion, Orthopedics managing. Status post ORIF revision 08/03/[address] Camacho. Nonweightbearing, will need rehabilitation. Pain control: Avoid acetaminophen use. Wean. Oxycodone 5 mg every 8 hours as needed for pain COPD with shortness of breath and dyspnea, improved Chest x-ray did not indicate any acute abnormality Patient with good O2 saturations Continue incentive spirometry C. difficile colitis, treated Treated with oral Flagyl for total of 14 days Repeat C.diff test 09/01 negative. 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 Hemoglobin stable s/p multiple transfusion, S/p EGD 07/29/16, showed single non bleeding ulcer 3-7 mm in size gastric antrum. 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 s/p transfusion prior to surgery Liver cirrhosis, Hepatic encephalopathy with hyperammonemia. Ammonia 45 on . Lactulose discontinued Ammonia level 08/27 improved to 40. Continue Rifaximin Hypertension, stable Continue propranolol and Aldactone. Numbness bilateral feet: Only minimal improvement. Patient has numbness in both feet. H/o alcohol abuse. B12 was 1449 on 07/27. Folate was normal. -RPR nonreactive. -TSH mildly elevated at 5.080. Free T3 normal and Free T4 1.47, relatively normal. -S/p Magnesium repletion. -Thiamine level at the lower limit of normal. -Continue Gabapentin 300 mg bid. -MRI lumbar spine indicates normal conus, mild disc bulge at L4/L5 with moderate disc bulge at L5-S1 no etiology of bilateral lower extremity numbness Paronychia: Patient has skin changes around the nails to both feet and a few fingers that appears as chronic paronychia. No acute abscess was evident initially, but colleague noted some exudate and possible acute infection of great toes. Patient admits to picking under and biting her fingernails as well as having ingrown toenails. -S/p soaking in warm water with Epsom salt. -S/p triamcinolone acetonide 0.1% ointment. -Patient advised against biting her nails due to risk of infection. -Podiatry consult pending. H/o ulcer and gastric varices: Continue Carafate. Hand rash: chronic. Could be dyshidrotic eczema although there are no papules or pustules present. RPR non-reactive. Nothing acute to do. Patient states she has had it for years intermittently occurring. DVT prophylaxis: SCDs, pharmacological prophylaxis contraindicated. Discharge Planning manager unit following. Will require clearance by orthopedics. Alix Johnson Sep 08, 2016 11:52
[2016-09-08 20:00] VITALS: BP 109/74; PULSE 65; RESP 18; TEMP 98.2; O2SAT 94
[2016-09-08] MEDS: traZODone HCL 50 MG TAB PO SCH (20:49)
[2016-09-09] MEDS: SUCRALFATE 1 GM/10 ML CUP PO SCH ×4 (06:26→21:50)
[2016-09-09 08:00] VITALS: BP 133/76; PULSE 67; RESP 18; TEMP 98.3; O2SAT 94
[2016-09-09] MEDS: PROPRANOLOL HCL 20 MG TAB PO SCH ×3 (09:09→17:13)
[2016-09-09] MEDS: GABAPENTIN 300 MG CAP PO SCH ×2 (09:09→20:59)
[2016-09-09] MEDS: SPIRONOLACTONE 25 MG TAB PO SCH ×2 (09:10→20:59)
[2016-09-09] MEDS: PANTOPRAZOLE SOD 40 MG DELAYED RELEASE TAB PO SCH ×2 (09:10→20:59)
[2016-09-09] MEDS: POTASSIUM CHLORIDE 20 MEQ CONTROLLED RELEASE TAB PO SCH (09:10)
[2016-09-09] MEDS: CALCIUM/VITAMIN D 250 MG/125 U TAB PO SCH ×3 (09:10→17:13)
[2016-09-09] MEDS: RIFAXIMIN 550 MG TAB PO SCH ×2 (09:10→20:59)
[2016-09-09] MEDS: MUPIROCIN 2% OINT 22 GM TUBE TOPICAL SCH ×2 (09:11→20:59)
--- NOTE | 2016-09-09 11:19 | HHI.PR ---
Subjective Remarks Patient states the machine operator assistant came this morning to evaluate her feet. She admits to pain in her right leg but denies any increased swelling in the leg or tightness of splint. Objective Vitals Vital Signs Date Time Temp Pulse Resp B/P Pulse Ox O2 Delivery O2 Flow Rate FiO2 09/09/16 08:00 98.3 67 18 133/76 94 09/08/16 20:00 98.2 65 18 109/74 94 09/08/16 18:38 16 I/O 09/08/16 09/08/16 09/08/16 09/09/16 09/09/16 09/09/16 06:59 14:59 22:59 06:59 14:59 22:59 Intake Total 60 ml 240 ml 480 ml Balance 60 ml 240 ml 480 ml Intake Oral 60 ml 240 ml 480 ml # Voids 1 1 1 # Bowel Movements 1 1 Objective Remarks GENERAL: Pleasant well-nourished, well-developed patient in no apparent distress sitting in recliner. SKIN: Warm and dry. Erythema noted around nails of toes to both feet most significant around R great and second toenails which appear to have been trimmed medially. CARDIOVASCULAR: Regular rate and rhythm. RESPIRATORY: Limited exam. No accessory muscle use. Clear to auscultation. Breath sounds equal bilaterally. GASTROINTESTINAL: Abdomen soft, nontender, nondistended. MUSCULOSKELETAL: Splint to right lower extremity. 2+ left DP and TP pulses. Moves toes of both feet. NEUROLOGICAL: Awake and alert. Normal speech. PSYCHIATRIC: Appropriate mood and affect; insight and judgment normal. Procedures 08/03: Removal broken hardware from right tibia and fibula, open treatment of right tibia and fibula nonunion, and iliac crest bone grafting with stem cell graft. Urinary Catheter: No Vascular Central Line Catheter: No A/P Problem List: (1) Hepatitis C ICD Code: B19.20 Status: Chronic (2) Cirrhosis of liver ICD Code: K74.60 Status: Chronic (3) Acute renal failure ICD Code: N17.9 Status: Acute (4) Fracture of distal end of tibia with fibula ICD Code: S82.309A Status: Chronic (5) Anemia ICD Code: D64.9 Status: Acute (6) Hypokalemia ICD Code: E87.6 Status: Acute (7) Thrombocytopenia ICD Code: D69.6 Status: Acute (8) Clostridium difficile colitis ICD Code: A04.7 Status: Acute (9) Gastric ulcer ICD Code: K25.9 Status: Acute (10) Pancytopenia ICD Code: D61.818 Status: Acute (11) Hepatic encephalopathy ICD Code: K72.90 Status: Acute (12) Numbness in feet ICD Code: R20.0 Status: Acute (13) Chronic paronychia of finger ICD Code: L03.019 Status: Acute (14) Chronic paronychia of toe ICD Code: L03.039 Status: Acute Assessment and Plan Right tibia-fibula nonunion, Orthopedics managing. Status post ORIF revision 08/03/[address] Camacho. Nonweightbearing, will need rehabilitation. Pain control: Avoid acetaminophen use. Wean. Oxycodone 5 mg every 8 hours as needed for pain COPD with shortness of breath and dyspnea, improved Chest x-ray did not indicate any acute abnormality Patient with good O2 saturations Continue incentive spirometry C. difficile colitis, treated Treated with oral Flagyl for total of 14 days Repeat C.diff test 09/01 negative. 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 Hemoglobin stable s/p multiple transfusion, S/p EGD 07/29/16, showed single non bleeding ulcer 3-7 mm in size gastric antrum. 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 s/p transfusion prior to surgery Liver cirrhosis, Hepatic encephalopathy with hyperammonemia. Ammonia 45 on . Lactulose discontinued Ammonia level 08/27 improved to 40. Continue Rifaximin Hypertension, stable Continue propranolol and Aldactone. Numbness bilateral feet: Only minimal improvement. Patient has numbness in both feet. H/o alcohol abuse. B12 was 1449 on 07/27. Folate was normal. -RPR nonreactive. -TSH mildly elevated at 5.080. Free T3 normal and Free T4 1.47, relatively normal. -S/p Magnesium repletion. -Thiamine level at the lower limit of normal. -Continue Gabapentin 300 mg bid. -MRI lumbar spine indicates normal conus, mild disc bulge at L4/L5 with moderate disc bulge at L5-S1 no etiology of bilateral lower extremity numbness Paronychia: Patient has skin changes around the nails to both feet and a few fingers that appears as chronic paronychia. No acute abscess is evident, but colleague noted some exudate and possible acute infection of great toes. Patient admits to picking under and biting her fingernails as well as having ingrown toenails. -S/p soaking in warm water with Epsom salt. -S/p triamcinolone acetonide 0.1% ointment. -Patient advised against biting her nails due to risk of infection. -Podiatry evaluated the patient today 09/09 and clipped all nails. Orders for daily mupirocin/bandaid to R hallux and 2nd toenail. States can f/u in office. Signed off. H/o ulcer and gastric varices: Continue Carafate. DVT prophylaxis: SCDs, pharmacological prophylaxis contraindicated. Discharge Planning industrial organization manager following. Will require clearance by orthopedics. Alix Johnson Sep 09, 2016 11:18
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
--- NOTE | 2016-09-09 19:08 | PD.ORT.PN ---
Subjective Subjective Remarks Pain controlled. No new complaints Objective Vitals Vital Signs Date Time Temp Pulse Resp B/P Pulse Ox O2 Delivery O2 Flow Rate FiO2 09/09/16 11:43 18 09/09/16 08:00 98.3 67 18 133/76 94 09/08/16 20:00 98.2 65 18 109/74 94 I/O 09/08/16 09/08/16 09/08/16 09/09/16 09/09/16 09/09/16 07:00 15:00 23:00 07:00 15:00 23:00 Intake Total 60 ml 240 ml 480 ml 720 ml Balance 60 ml 240 ml 480 ml 720 ml Intake Oral 60 ml 240 ml 480 ml 720 ml # Voids 1 1 1 3 # Bowel Movements 1 1 2 Imaging Last 72 hours Impressions Ankle X-Ray 08/03/16 0000 Signed Impressions: Service Date/Time: Wednesday, August 03, 2016 16:54 - CONCLUSION: Status post ORIF of distal right tibial and fibular fractures resulting in satisfactory anatomic alignment. Edis Plascencia MD Objective Remarks Right lower extremity: Iliac crest bone graft site clean and dry. healed well. no drainage. short leg splint intact. 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
--- NOTE | 2016-09-09 19:46 | RADHPO ---
EXAM DATE/TIME: 09/09/2016 19:28 [facility] COMPARISON: 08/17/2016. INDICATIONS : Post Op MEDICAL HISTORY : None. SURGICAL HISTORY : ORIF right ankle, revison of right ankle surgery ENCOUNTER: Initial ACUITY: 1 day PAIN SCORE: 10/10 LOCATION: Right Ankle FINDINGS: Nonacute fracture status post screw and plate fixation again seen of the distal tibia and fibula. Lonny dy is obtained through cast which obscures fine bony detail. No clearly see solid bony bridging of th e fibular fracture, with an ill-defined lucency again seen of the distal shaft region. The distal sha ft fracture of the tibia appears to have solid bony bridging but there is considerable diffuse sclero sis of the bone proximal and distal to the fracture, presumably reactive but chronic osteomyelitis wo uld be in the differential for this appearance. All these findings are not significantly changed. The re is a broken screw distally of the tibia, also unchanged. CONCLUSION: Nonacute fractures of the distal tibia and fibula status post screw and plate fixation seen through c ast. No significant change in the radiographic appearance. Please see above. Tnoy Hdez MD on September 09, 2016 at 19:42 Board Certified Radiologist. This report was verified electronically.
[2016-09-09 20:00] VITALS: BP 138/85; PULSE 59; RESP 18; TEMP 98.6; O2SAT 98
[2016-09-09] MEDS: traZODone HCL 50 MG TAB PO SCH (20:59)
[2016-09-10] MEDS: SUCRALFATE 1 GM/10 ML CUP PO SCH ×4 (06:05→20:25)
[2016-09-10 08:00] VITALS: BP 115/74; PULSE 69; RESP 16; TEMP 98.3; O2SAT 94
[2016-09-10] MEDS: PROPRANOLOL HCL 20 MG TAB PO SCH ×3 (08:32→17:38)
[2016-09-10] MEDS: RIFAXIMIN 550 MG TAB PO SCH ×2 (08:32→20:25)
[2016-09-10] MEDS: GABAPENTIN 300 MG CAP PO SCH ×2 (08:32→20:25)
[2016-09-10] MEDS: POTASSIUM CHLORIDE 20 MEQ CONTROLLED RELEASE TAB PO SCH (08:32)
[2016-09-10] MEDS: CALCIUM/VITAMIN D 250 MG/125 U TAB PO SCH ×3 (08:32→17:38)
[2016-09-10] MEDS: SPIRONOLACTONE 25 MG TAB PO SCH ×2 (08:33→20:26)
[2016-09-10] MEDS: PANTOPRAZOLE SOD 40 MG DELAYED RELEASE TAB PO SCH ×2 (08:33→20:25)
[2016-09-10] MEDS: MUPIROCIN 2% OINT 22 GM TUBE TOPICAL SCH ×2 (08:37→20:33)
--- NOTE | 2016-09-10 18:10 | HHI.PR ---
Subjective Remarks Patient states it feels abnormal over the site where bone was harvested from her iliac crest. She does state the feeling in her left toes has improved. Objective Vitals Vital Signs Date Time Temp Pulse Resp B/P Pulse Ox O2 Delivery O2 Flow Rate FiO2 09/10/16 15:54 16 09/10/16 08:00 98.3 69 16 115/74 94 09/09/16 20:00 98.6 59 18 138/85 98 I/O 09/09/16 09/09/16 09/09/16 09/10/16 09/10/16 09/10/16 07:00 15:00 23:00 07:00 15:00 23:00 Intake Total 720 ml 180 ml 240 ml Balance 720 ml 180 ml 240 ml Intake Oral 720 ml 180 ml 240 ml # Voids 1 3 1 1 1 # Bowel Movements 1 2 0 1 Imaging Last Impressions Ankle X-Ray 09/09/16 0000 Signed Impressions: Service Date/Time: August 19:28 - CONCLUSION: Nonacute fractures of the distal tibia and fibula status post screw and plate fixation seen through cast. No significant change in the radiographic appearance. Please see above. Tony Hdez MD Lumbar Spine MRI 09/01/16 0000 Signed Impressions: Service Date/Time: Thursday, September 01, 2016 11:04 - CONCLUSION: Signal intensity is normal in the conus. Mild disc bulging at L4-5 with moderate disc bulge at L5-S1. This does not look like a cause of bilateral extremity numbness. Correlation is suggested. Ramos Lo MD FACR Chest X-Ray 08/20/16 0000 Signed Impressions: Service Date/Time: Saturday, August 20, 2016 14:29 - CONCLUSION: No acute disease. oTm Greene MD Lower Extremity Ultrasound 08/16/16 0000 Signed Impressions: Service Date/Time: Tuesday, August 16, 2016 16:40 - CONCLUSION: Normal examination. Tony Moya MD Spleen Ultrasound 07/28/16 0000 Signed Impressions: Service Date/Time: Thursday, July 28, 2016 15:26 - CONCLUSION: Normal size spleen. Ramos Lo MD FACR Objective Remarks GENERAL: Pleasant well-nourished, well-developed patient in no apparent distress sitting in recliner. SKIN: Warm and dry. Erythema noted around nails of toes to both feet. Left toes are no longer painful to light touch. Scar over right iliac crest. There is no palpable swelling or fluctuance nor erythema in this region. CARDIOVASCULAR: Regular rate and rhythm. RESPIRATORY: Limited exam. No accessory muscle use. Clear to auscultation. Breath sounds equal bilaterally. GASTROINTESTINAL: Abdomen soft, nontender, nondistended. MUSCULOSKELETAL: Splint to right lower extremity. Moves toes of R foot. 2+ left DP pulse. NEUROLOGICAL: Awake and alert. Normal speech. PSYCHIATRIC: Appropriate mood and affect; insight and judgment normal. Procedures 08/03: Removal broken hardware from right tibia and fibula, open treatment of right tibia and fibula nonunion, and iliac crest bone grafting with stem cell graft. Urinary Catheter: No Vascular Central Line Catheter: No A/P Problem List: (1) Hepatitis C ICD Code: B19.20 Status: Chronic (2) Cirrhosis of liver ICD Code: K74.60 Status: Chronic (3) Acute renal failure ICD Code: N17.9 Status: Acute (4) Fracture of distal end of tibia with fibula ICD Code: S82.309A Status: Chronic (5) Anemia ICD Code: D64.9 Status: Acute (6) Hypokalemia ICD Code: E87.6 Status: Acute (7) Thrombocytopenia ICD Code: D69.6 Status: Acute (8) Clostridium difficile colitis ICD Code: A04.7 Status: Acute (9) Gastric ulcer ICD Code: K25.9 Status: Acute (10) Pancytopenia ICD Code: D61.818 Status: Acute (11) Hepatic encephalopathy ICD Code: K72.90 Status: Acute (12) Numbness in feet ICD Code: R20.0 Status: Acute (13) Chronic paronychia of finger ICD Code: L03.019 Status: Acute (14) Chronic paronychia of toe ICD Code: L03.039 Status: Acute Assessment and Plan Right tibia-fibula nonunion, Orthopedics managing, last evaluated patient on 09/09/16. Ortho ordered new x- rays; patient can progress to a fracture boot next week. Status post ORIF revision 08/03/[address] Camacho. Nonweightbearing, will need rehabilitation. Pain control: Avoid acetaminophen use. Oxycodone 5 mg every 8 hours as needed for pain COPD with shortness of breath and dyspnea, improved Chest x-ray did not indicate any acute abnormality Patient with good O2 saturations Continue incentive spirometry C. difficile colitis, treated Treated with oral Flagyl for total of 14 days Repeat C.diff test 09/01 negative. 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 Hemoglobin stable s/p multiple transfusion, S/p EGD 07/29/16, showed single non bleeding ulcer 3-7 mm in size gastric antrum. 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 s/p transfusion prior to surgery Liver cirrhosis, Hepatic encephalopathy with hyperammonemia. Ammonia 45 on . Lactulose discontinued Ammonia level 08/27 improved to 40. Continue Rifaximin Hypertension, stable Continue propranolol and Aldactone. Numbness bilateral feet: L foot mildly improving. H/o alcohol abuse. -B12 was 1449 on 07/27. Folate was normal. -RPR nonreactive. -TSH mildly elevated at 5.080. Free T3 normal and Free T4 1.47, relatively normal. -S/p Magnesium repletion. -Thiamine level at the lower limit of normal. -Continue Gabapentin 300 mg bid. -MRI lumbar spine indicates normal conus, mild disc bulge at L4/L5 with moderate disc bulge at L5-S1 no etiology of bilateral lower extremity numbness Paronychia: Patient has skin changes around the nails to both feet and a few fingers that appears as chronic paronychia. No acute abscess is evident, but colleague noted some exudate and possible acute infection of great toes. Patient admits to picking under and biting her fingernails as well as having ingrown toenails. -S/p soaking in warm water with Epsom salt. -S/p triamcinolone acetonide 0.1% ointment. -Patient advised against biting her nails due to risk of infection. -Podiatry evaluated the patient on 09/09 and clipped all nails. Orders for daily mupirocin/bandaid to R hallux and 2nd toenail. Patient toes less painful. States can f/u in office. Signed off. H/o ulcer and gastric varices: Continue Carafate. DVT prophylaxis: SCDs, pharmacological prophylaxis contraindicated. Discharge Planning audio visual manager following. Will require clearance by orthopedics. Alix Johnson Sep 10, 2016 18:10
[2016-09-10 20:25] VITALS: BP 126/70; PULSE 70; RESP 16; TEMP 97.9; O2SAT 97
[2016-09-10] MEDS: traZODone HCL 50 MG TAB PO SCH (20:31)
[2016-09-11] MEDS: SUCRALFATE 1 GM/10 ML CUP PO SCH ×4 (06:50→20:17)
[2016-09-11 08:00] VITALS: BP 121/77; PULSE 65; RESP 18; TEMP 98.4; O2SAT 96
[2016-09-11] MEDS: RIFAXIMIN 550 MG TAB PO SCH ×2 (08:57→20:16)
[2016-09-11] MEDS: PANTOPRAZOLE SOD 40 MG DELAYED RELEASE TAB PO SCH ×2 (08:58→20:17)
[2016-09-11] MEDS: SPIRONOLACTONE 25 MG TAB PO SCH ×2 (08:58→20:16)
[2016-09-11] MEDS: CALCIUM/VITAMIN D 250 MG/125 U TAB PO SCH ×3 (08:58→17:48)
[2016-09-11] MEDS: GABAPENTIN 300 MG CAP PO SCH ×2 (08:58→20:17)
[2016-09-11] MEDS: POTASSIUM CHLORIDE 20 MEQ CONTROLLED RELEASE TAB PO SCH (08:58)
[2016-09-11] MEDS: PROPRANOLOL HCL 20 MG TAB PO SCH ×3 (08:58→17:49)
[2016-09-11] MEDS: MUPIROCIN 2% OINT 22 GM TUBE TOPICAL SCH ×2 (08:59→21:00)
--- NOTE | 2016-09-11 16:17 | HHI.PR ---
Subjective Remarks No acute complaints. No change in clinical status. Objective Vitals Vital Signs Date Time Temp Pulse Resp B/P Pulse Ox O2 Delivery O2 Flow Rate FiO2 09/11/16 10:05 16 09/11/16 08:00 98.4 65 18 121/77 96 09/10/16 20:25 97.9 70 16 126/70 97 I/O 09/10/16 09/10/16 09/10/16 09/11/16 09/11/16 09/11/16 06:59 14:59 22:59 06:59 14:59 22:59 Intake Total 240 ml 480 ml 480 ml Balance 240 ml 480 ml 480 ml Intake Oral 240 ml 480 ml 480 ml # Voids 1 1 2 0 1 # Bowel Movements 1 1 1 Imaging Last Impressions Ankle X-Ray 09/09/16 0000 Signed Impressions: Service Date/Time: August 19:28 - CONCLUSION: Nonacute fractures of the distal tibia and fibula status post screw and plate fixation seen through cast. No significant change in the radiographic appearance. Please see above. Tony Hdez MD Lumbar Spine MRI 09/01/16 0000 Signed Impressions: Service Date/Time: Thursday, September 01, 2016 11:04 - CONCLUSION: Signal intensity is normal in the conus. Mild disc bulging at L4-5 with moderate disc bulge at L5-S1. This does not look like a cause of bilateral extremity numbness. Correlation is suggested. Ramos Lo MD FACR Chest X-Ray 08/20/16 0000 Signed Impressions: Service Date/Time: Saturday, August 20, 2016 14:29 - CONCLUSION: No acute disease. Tom Greene MD Lower Extremity Ultrasound 08/16/16 0000 Signed Impressions: Service Date/Time: Tuesday, August 16, 2016 16:40 - CONCLUSION: Normal examination. Tony Moya MD Spleen Ultrasound 07/28/16 0000 Signed Impressions: Service Date/Time: Thursday, July 28, 2016 15:26 - CONCLUSION: Normal size spleen. Ramos Lo MD FACR Objective Remarks GENERAL: Pleasant well-nourished, well-developed patient in no apparent distress sitting in recliner. SKIN: Warm and dry. Erythema noted around nails of right toes which are visible. CARDIOVASCULAR: Regular rate and rhythm. RESPIRATORY: No accessory muscle use. Clear to auscultation. Breath sounds equal bilaterally. GASTROINTESTINAL: Abdomen soft, nontender, nondistended. MUSCULOSKELETAL: Splint to right lower extremity. NEUROLOGICAL: Awake and alert. Normal speech. PSYCHIATRIC: Appropriate mood and affect; insight and judgment normal. Procedures 08/03: Removal broken hardware from right tibia and fibula, open treatment of right tibia and fibula nonunion, and iliac crest bone grafting with stem cell graft. Urinary Catheter: No Vascular Central Line Catheter: No A/P Problem List: (1) Hepatitis C ICD Code: B19.20 Status: Chronic (2) Cirrhosis of liver ICD Code: K74.60 Status: Chronic (3) Acute renal failure ICD Code: N17.9 Status: Acute (4) Fracture of distal end of tibia with fibula ICD Code: S82.309A Status: Chronic (5) Anemia ICD Code: D64.9 Status: Acute (6) Hypokalemia ICD Code: E87.6 Status: Acute (7) Thrombocytopenia ICD Code: D69.6 Status: Acute (8) Clostridium difficile colitis ICD Code: A04.7 Status: Acute (9) Gastric ulcer ICD Code: K25.9 Status: Acute (10) Pancytopenia ICD Code: D61.818 Status: Acute (11) Hepatic encephalopathy ICD Code: K72.90 Status: Acute (12) Numbness in feet ICD Code: R20.0 Status: Acute (13) Chronic paronychia of finger ICD Code: L03.019 Status: Acute (14) Chronic paronychia of toe ICD Code: L03.039 Status: Acute Assessment and Plan Right tibia-fibula nonunion, Orthopedics managing, last evaluated patient on 09/09/16. Ortho ordered new x- rays; patient can progress to a fracture boot next week. Status post ORIF revision 08/03/[address] Camacho. Nonweightbearing, will need rehabilitation. Pain control: Avoid acetaminophen use. Oxycodone 5 mg every 8 hours as needed for pain COPD with shortness of breath and dyspnea, improved Chest x-ray did not indicate any acute abnormality Patient with good O2 saturations Continue incentive spirometry C. difficile colitis, treated Treated with oral Flagyl for total of 14 days Repeat C.diff test 09/01 negative. 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 Hemoglobin stable s/p multiple transfusion, S/p EGD 07/29/16, showed single non bleeding ulcer 3-7 mm in size gastric antrum. 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 s/p transfusion prior to surgery Liver cirrhosis, Hepatic encephalopathy with hyperammonemia. Ammonia 45 on . Lactulose discontinued Ammonia level 08/27 improved to 40. Continue Rifaximin Hypertension, stable Continue propranolol and Aldactone. Numbness bilateral feet: L foot mildly improving. H/o alcohol abuse. -B12 was 1449 on 07/27. Folate was normal. -RPR nonreactive. -TSH mildly elevated at 5.080. Free T3 normal and Free T4 1.47, relatively normal. -S/p Magnesium repletion. -Thiamine level at the lower limit of normal. -Continue Gabapentin 300 mg bid. -MRI lumbar spine indicates normal conus, mild disc bulge at L4/L5 with moderate disc bulge at L5-S1 no etiology of bilateral lower extremity numbness Paronychia: Patient has skin changes around the nails to both feet and a few fingers that appears as chronic paronychia. No acute abscess is evident, but colleague noted some exudate and possible acute infection of great toes. Patient admits to picking under and biting her fingernails as well as having ingrown toenails. -S/p soaking in warm water with Epsom salt. -S/p triamcinolone acetonide 0.1% ointment. -Patient advised against biting her nails due to risk of infection. -Podiatry evaluated the patient on 09/09 and clipped all nails. Orders for daily mupirocin/bandaid to R hallux and 2nd toenail. Patient toes less painful. States can f/u in office. Signed off. H/o ulcer and gastric varices: Continue Carafate. DVT prophylaxis: SCDs, pharmacological prophylaxis contraindicated. Discharge Planning legal records manager following. Will require clearance by orthopedics. Alix Johnson Sep 11, 2016 16:17
[2016-09-11 20:00] VITALS: BP 115/73; PULSE 63; RESP 18; TEMP 97.7; O2SAT 98
[2016-09-11] MEDS: traZODone HCL 50 MG TAB PO SCH (20:21)
[2016-09-12] MEDS: SUCRALFATE 1 GM/10 ML CUP PO SCH ×4 (06:39→20:57)
[2016-09-12 08:00] VITALS: BP 116/66; PULSE 66; RESP 18; TEMP 97.8; O2SAT 96
[2016-09-12] MEDS: PROPRANOLOL HCL 20 MG TAB PO SCH ×4 (09:17→16:34)
[2016-09-12] MEDS: RIFAXIMIN 550 MG TAB PO SCH ×2 (09:17→20:57)
[2016-09-12] MEDS: PANTOPRAZOLE SOD 40 MG DELAYED RELEASE TAB PO SCH ×2 (09:17→20:57)
[2016-09-12] MEDS: POTASSIUM CHLORIDE 20 MEQ CONTROLLED RELEASE TAB PO SCH (09:17)
[2016-09-12] MEDS: GABAPENTIN 300 MG CAP PO SCH ×2 (09:17→20:57)
[2016-09-12] MEDS: SPIRONOLACTONE 25 MG TAB PO SCH ×2 (09:17→20:57)
[2016-09-12] MEDS: CALCIUM/VITAMIN D 250 MG/125 U TAB PO SCH ×4 (09:17→16:34)
[2016-09-12] MEDS: MUPIROCIN 2% OINT 22 GM TUBE TOPICAL SCH ×2 (09:18→21:02)
--- NOTE | 2016-09-12 11:26 | HHI.PR ---
Subjective Remarks Patient feels the gabapentin is working. She feels less numbness in the toes of her left foot. Denies any tingling. Still states she is having release of stool with flatulence, but no incontinence. Objective Vitals Vital Signs Date Time Temp Pulse Resp B/P Pulse Ox O2 Delivery O2 Flow Rate FiO2 09/12/16 08:00 97.8 66 18 116/66 96 09/12/16 01:52 16 09/11/16 20:00 97.7 63 18 115/73 98 I/O 09/11/16 09/11/16 09/11/16 09/12/16 09/12/16 09/12/16 07:00 15:00 23:00 07:00 15:00 23:00 Intake Total 480 ml 24 ml Balance 480 ml 24 ml Intake Oral 480 ml 24 ml # Voids 0 1 2 # Bowel Movements 1 Imaging Last Impressions Ankle X-Ray 09/09/16 0000 Signed Impressions: Service Date/Time: August 19:28 - CONCLUSION: Nonacute fractures of the distal tibia and fibula status post screw and plate fixation seen through cast. No significant change in the radiographic appearance. Please see above. Tony Hdez MD Lumbar Spine MRI 09/01/16 0000 Signed Impressions: Service Date/Time: Thursday, September 01, 2016 11:04 - CONCLUSION: Signal intensity is normal in the conus. Mild disc bulging at L4-5 with moderate disc bulge at L5-S1. This does not look like a cause of bilateral extremity numbness. Correlation is suggested. Ramos Lo MD FACR Chest X-Ray 08/20/16 0000 Signed Impressions: Service Date/Time: Saturday, August 20, 2016 14:29 - CONCLUSION: No acute disease. Tom Greene MD Lower Extremity Ultrasound 08/16/16 0000 Signed Impressions: Service Date/Time: Tuesday, August 16, 2016 16:40 - CONCLUSION: Normal examination. Tony Moya MD Spleen Ultrasound 07/28/16 0000 Signed Impressions: Service Date/Time: Thursday, July 28, 2016 15:26 - CONCLUSION: Normal size spleen. Ramos Lo MD FACR Objective Remarks GENERAL: Pleasant well-nourished, well-developed patient in no apparent distress sitting in recliner. SKIN: Warm and dry. Erythema noted around nails of both feet. CARDIOVASCULAR: Regular rate and rhythm. RESPIRATORY: No accessory muscle use. Clear to auscultation. Breath sounds equal bilaterally. MUSCULOSKELETAL: Splint to right lower extremity. 2+ LP pulse. NEUROLOGICAL: Awake and alert. Normal speech. PSYCHIATRIC: Appropriate mood and affect; insight and judgment normal. Procedures 08/03: Removal broken hardware from right tibia and fibula, open treatment of right tibia and fibula nonunion, and iliac crest bone grafting with stem cell graft. Urinary Catheter: No Vascular Central Line Catheter: No A/P Problem List: (1) Hepatitis C ICD Code: B19.20 Status: Chronic (2) Cirrhosis of liver ICD Code: K74.60 Status: Chronic (3) Acute renal failure ICD Code: N17.9 Status: Acute (4) Fracture of distal end of tibia with fibula ICD Code: S82.309A Status: Chronic (5) Anemia ICD Code: D64.9 Status: Acute (6) Hypokalemia ICD Code: E87.6 Status: Acute (7) Thrombocytopenia ICD Code: D69.6 Status: Acute (8) Clostridium difficile colitis ICD Code: A04.7 Status: Acute (9) Gastric ulcer ICD Code: K25.9 Status: Acute (10) Pancytopenia ICD Code: D61.818 Status: Acute (11) Hepatic encephalopathy ICD Code: K72.90 Status: Acute (12) Numbness in feet ICD Code: R20.0 Status: Acute (13) Chronic paronychia of finger ICD Code: L03.019 Status: Acute (14) Chronic paronychia of toe ICD Code: L03.039 Status: Acute Assessment and Plan Right tibia-fibula nonunion, Orthopedics managing, last evaluated patient on 09/09/16. Ortho ordered new x- rays; patient can progress to a fracture boot next week. Status post ORIF revision 08/03/[address] Camacho. Nonweightbearing, will need rehabilitation. Pain control: Avoid acetaminophen use. Oxycodone 5 mg every 8 hours as needed for pain COPD with shortness of breath and dyspnea, improved Chest x-ray did not indicate any acute abnormality Patient with good O2 saturations Continue incentive spirometry C. difficile colitis, treated Treated with oral Flagyl for total of 14 days Patient still has some loose stools but repeat C.diff test 09/01 negative. 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 Hemoglobin stable s/p multiple transfusion, S/p EGD 07/29/16, showed single non bleeding ulcer 3-7 mm in size gastric antrum. 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 s/p transfusion prior to surgery Liver cirrhosis, Hepatic encephalopathy with hyperammonemia. Ammonia 45 on . Lactulose discontinued Ammonia level 08/27 improved to 40. Continue Rifaximin Hypertension, stable Continue propranolol and Aldactone. Numbness bilateral feet: L foot mildly improving. H/o alcohol abuse. -B12 was 1449 on 07/27. Folate was normal. -RPR nonreactive. -TSH mildly elevated at 5.080. Free T3 normal and Free T4 1.47, relatively normal. -S/p Magnesium repletion. -Thiamine level at the lower limit of normal. -Continue Gabapentin 300 mg bid. -MRI lumbar spine indicates normal conus, mild disc bulge at L4/L5 with moderate disc bulge at L5-S1 no etiology of bilateral lower extremity numbness Paronychia: Patient has skin changes around the nails to both feet and a few fingers that appears as chronic paronychia. No acute abscess is evident, but colleague noted some exudate and possible acute infection of great toes. Patient admits to picking under and biting her fingernails as well as having ingrown toenails. -S/p soaking in warm water with Epsom salt. -S/p triamcinolone acetonide 0.1% ointment. -Patient advised against biting her nails due to risk of infection. -Podiatry evaluated the patient on 09/09 and clipped all nails. Orders for daily mupirocin/bandaid to R hallux and 2nd toenail. Patient toes less painful. States can f/u in office. Signed off. H/o ulcer and gastric varices: Continue Carafate. DVT prophylaxis: SCDs, pharmacological prophylaxis contraindicated. Discharge Planning export sales manager following. Will require clearance by orthopedics. Alix Johnson Sep 12, 2016 11:26
[2016-09-12 16:32] VITALS: BP 140/73; PULSE 63
[2016-09-12 20:00] VITALS: BP 115/68; PULSE 63; RESP 16; TEMP 97.7; O2SAT 97
[2016-09-12] MEDS: traZODone HCL 50 MG TAB PO SCH (20:57)
[2016-09-13] MEDS: SUCRALFATE 1 GM/10 ML CUP PO SCH ×4 (06:16→20:34)
[2016-09-13 08:00] VITALS: BP 114/74; PULSE 62; RESP 16; TEMP 98.7; O2SAT 99
--- NOTE | 2016-09-13 08:40 | HHI.PR ---
Subjective Remarks No acute complaints. No change in clinical status. Objective Vitals Vital Signs Date Time Temp Pulse Resp B/P Pulse Ox O2 Delivery O2 Flow Rate FiO2 09/13/16 08:00 98.7 62 16 114/74 99 09/12/16 20:00 97.7 63 16 115/68 97 09/12/16 16:32 63 140/73 I/O 09/12/16 09/12/16 09/12/16 09/13/16 09/13/16 09/13/16 06:59 14:59 22:59 06:59 14:59 22:59 Intake Total 360 ml Balance 360 ml Intake Oral 360 ml # Voids 2 4 1 # Bowel Movements 1 Objective Remarks GENERAL: Pleasant well-nourished, well-developed patient in no apparent distress. SKIN: Warm and dry. Erythema noted around nails of both feet. Erythema improved around fingers. CARDIOVASCULAR: Regular rate and rhythm. RESPIRATORY: Limited exam. No accessory muscle use. Clear to auscultation. Breath sounds equal bilaterally. MUSCULOSKELETAL: Splint to right lower extremity. Moves R toes. NEUROLOGICAL: Awake and alert. Normal speech. PSYCHIATRIC: Appropriate mood and affect; insight and judgment normal. Procedures 08/03: Removal broken hardware from right tibia and fibula, open treatment of right tibia and fibula nonunion, and iliac crest bone grafting with stem cell graft. Urinary Catheter: No Vascular Central Line Catheter: No A/P Problem List: (1) Hepatitis C ICD Code: B19.20 Status: Chronic (2) Cirrhosis of liver ICD Code: K74.60 Status: Chronic (3) Acute renal failure ICD Code: N17.9 Status: Acute (4) Fracture of distal end of tibia with fibula ICD Code: S82.309A Status: Chronic (5) Anemia ICD Code: D64.9 Status: Acute (6) Hypokalemia ICD Code: E87.6 Status: Acute (7) Thrombocytopenia ICD Code: D69.6 Status: Acute (8) Clostridium difficile colitis ICD Code: A04.7 Status: Acute (9) Gastric ulcer ICD Code: K25.9 Status: Acute (10) Pancytopenia ICD Code: D61.818 Status: Acute (11) Hepatic encephalopathy ICD Code: K72.90 Status: Acute (12) Numbness in feet ICD Code: R20.0 Status: Acute (13) Chronic paronychia of finger ICD Code: L03.019 Status: Acute (14) Chronic paronychia of toe ICD Code: L03.039 Status: Acute Assessment and Plan Right tibia-fibula nonunion, Orthopedics managing, last evaluated patient on 09/09/16. Ortho ordered new x- rays; patient can progress to a fracture boot next week. Status post ORIF revision 08/03/[address] Camacho. Nonweightbearing, will need rehabilitation. Pain control: Avoid acetaminophen use. Oxycodone 5 mg every 8 hours as needed for pain COPD with shortness of breath and dyspnea, improved Chest x-ray did not indicate any acute abnormality Patient with good O2 saturations Continue incentive spirometry C. difficile colitis, treated Treated with oral Flagyl for total of 14 days Patient admits to loose stool with flatulence. Repeat C.diff test 09/01 negative. I have informed RN to monitor this and if patient is continuing to have loose stools, may need to repeat test again. 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 Hemoglobin stable s/p multiple transfusion, S/p EGD 07/29/16, showed single non bleeding ulcer 3-7 mm in size gastric antrum. 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 s/p transfusion prior to surgery Liver cirrhosis, Hepatic encephalopathy with hyperammonemia. Ammonia 45 on . Lactulose discontinued Ammonia level 08/27 improved to 40. Continue Rifaximin Hypertension, stable Continue propranolol and Aldactone. Numbness bilateral feet: L foot mildly improving. H/o alcohol abuse. -B12 was 1449 on 07/27. Folate was normal. -RPR nonreactive. -TSH mildly elevated at 5.080. Free T3 normal and Free T4 1.47, relatively normal. -S/p Magnesium repletion. -Thiamine level at the lower limit of normal. -Continue Gabapentin 300 mg bid. -MRI lumbar spine indicates normal conus, mild disc bulge at L4/L5 with moderate disc bulge at L5-S1 no etiology of bilateral lower extremity numbness Paronychia: Patient has skin changes around the nails to both feet and a few fingers that appears as chronic paronychia. No acute abscess is evident, but colleague noted some exudate and possible acute infection of great toes. Patient admits to picking under and biting her fingernails as well as having ingrown toenails. -S/p soaking in warm water with Epsom salt. -S/p triamcinolone acetonide 0.1% ointment. -Patient advised against biting her nails due to risk of infection. -Podiatry evaluated the patient on 09/09 and clipped all nails. Orders for daily mupirocin/bandaid to R hallux and 2nd toenail. Patient toes less painful. States can f/u in office. Signed off. H/o ulcer and gastric varices: Continue Carafate. DVT prophylaxis: SCDs, pharmacological prophylaxis contraindicated. Discharge Planning geophysical manager following. Will require clearance by orthopedics. Alix Johnson Sep 13, 2016 08:40
[2016-09-13] MEDS: SPIRONOLACTONE 25 MG TAB PO SCH ×2 (09:01→20:34)
[2016-09-13] MEDS: CALCIUM/VITAMIN D 250 MG/125 U TAB PO SCH ×3 (09:02→17:05)
[2016-09-13] MEDS: PANTOPRAZOLE SOD 40 MG DELAYED RELEASE TAB PO SCH ×2 (09:02→20:34)
[2016-09-13] MEDS: RIFAXIMIN 550 MG TAB PO SCH ×2 (09:02→20:34)
[2016-09-13] MEDS: POTASSIUM CHLORIDE 20 MEQ CONTROLLED RELEASE TAB PO SCH (09:02)
[2016-09-13] MEDS: GABAPENTIN 300 MG CAP PO SCH ×2 (09:02→20:34)
[2016-09-13] MEDS: PROPRANOLOL HCL 20 MG TAB PO SCH ×3 (09:02→17:05)
[2016-09-13] MEDS: MUPIROCIN 2% OINT 22 GM TUBE TOPICAL SCH ×2 (09:02→20:34)
[2016-09-13 20:00] VITALS: BP 106/73; PULSE 60; RESP 18; TEMP 96.6; O2SAT 97
[2016-09-13] MEDS: traZODone HCL 50 MG TAB PO SCH (20:34)
[2016-09-14] MEDS: SUCRALFATE 1 GM/10 ML CUP PO SCH ×4 (06:01→20:26)
[2016-09-14 08:00] VITALS: BP 115/72; PULSE 65; RESP 18; TEMP 96.4; O2SAT 96
[2016-09-14] MEDS: POTASSIUM CHLORIDE 20 MEQ CONTROLLED RELEASE TAB PO SCH (09:00)
[2016-09-14] MEDS: MUPIROCIN 2% OINT 22 GM TUBE TOPICAL SCH ×2 (09:00→22:56)
--- NOTE | 2016-09-14 09:02 | HHI.PR ---
Subjective Remarks Patient seen and examined today. Patient denies any new complaints. No change in clinical status. Objective Vitals Vital Signs Date Time Temp Pulse Resp B/P Pulse Ox O2 Delivery O2 Flow Rate FiO2 09/14/16 08:00 96.4 65 18 115/72 96 09/13/16 20:00 96.6 60 18 106/73 97 09/13/16 18:09 14 I/O 09/13/16 09/13/16 09/13/16 09/14/16 09/14/16 09/14/16 07:00 15:00 23:00 07:00 15:00 23:00 Intake Total 240 ml Balance 240 ml Intake Oral 240 ml # Voids 1 2 2 # Bowel Movements 1 1 Objective Remarks GENERAL: Well-developed, well-nourished, in no acute distress. alert and orientated HEENT: Head is normocephalic without any lesions or masses noted. Facial features are symmetric. Eyes: Extraocular muscles are intact. Conjunctivae were clear NECK: Trachea midline no deviation., CARDIAC: Regular rhythm, regular rate. S1/S2 are heard. No murmurs gallops or rubs. LUNGS: Clear to auscultation bilaterally. No wheeze, rhonchi or rales. No use of accessory muscles on inspiration or expiration. ABDOMEN: Soft, nontender. Nondistended. Bowel sounds heard in all 4 quadrants. No organomegaly or masses. Negative rebound, negative guarding EXTREMITIES: No edema, pulses are equal bilaterally. No cyanosis or clubbing. Right lower extremity in splint NEUROLOGY: Mood and affect appear appropriate. Cranial nerves II through XII grossly intact. Moving all extremities, speech is clear RIGHT LOWER EXTREMITY: Right great toe does have medial nail abnormality with erythema, edema, exudate. LEFT LOWER EXTREMITY: Left great toe also has nail changes medially and laterally indicating possible paronychia and redness, infection Procedures 08/03: Removal broken hardware from right tibia and fibula, open treatment of right tibia and fibula nonunion, and iliac crest bone grafting with stem cell graft. Urinary Catheter: No Vascular Central Line Catheter: No A/P Assessment and Plan Right tibia-fibula nonunion, Orthopedic managing Status post ORIF revision 08/03/[address] Camacho. Nonweightbearing, maintain splint for 3 months from surgery, 08/03/16 Pain control OxyContin 5 mg every 8 hours as needed for pain Bilateral great toe infection, paronychia Consulted podiatry who indicated and wrote orders for daily Bactroban cream and Band-Aid. Recommended outpatient follow-up Numbness bilateral feet: Persistent Patient with a workup with RPR, thyroid functions, BMP which appear to be relatively unremarkable Patient being treated for hypomagnesemia, without improvement of her numbness MRI lumbar spine indicates normal conus, mild disc bulge at L4/L5 with moderate disc bulge at L5-S1 no etiology of bilateral extremity numbness Continue Gabapentin 300 mg bid. COPD with shortness of breath and dyspnea, improved Chest x-ray did not indicate any acute abnormality Patient with good O2 saturations Continue incentive spirometry C. difficile colitis, treated Treated with oral Flagyl for total of 14 days Continue monitor stool output to see if repeat culture needs to be performed Repeat C. 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 Hemoglobin stable s/p multiple transfusion, S/p EGD 07/29/16, showed single non bleeding ulcer 3-7 mm in size gastric antrum. 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 s/p transfusion prior to surgery Liver cirrhosis, Hepatic encephalopathy with hyperammonemia, resolved Lactulose discontinued Continue rifaximin Hypertension, stable Continue propranolol and Aldactone. DVT prophylaxis: SCDs, pharmacological prophylaxis contraindicated Discharge Planning Case management in charge of discharge planning 09/02/16 1044 FOLLOWING FOR PATIENT TO BE ABLE TO SAFELY AMBULATE IN HOME SETTING. PATIENT HAS NO THERAPY BENEFITS ON INS. INS PLAN ONLY OUT PATIENT PT. SHOWS SLOW INPROVEMENT, ANSHU DEL ROSARIO SUSTAINABILITY MANAGER/CM/CHARGE Isaac Leal Sep 14, 2016 09:02
[2016-09-14] MEDS: SPIRONOLACTONE 25 MG TAB PO SCH ×2 (09:21→20:26)
[2016-09-14] MEDS: GABAPENTIN 300 MG CAP PO SCH ×2 (09:21→20:26)
[2016-09-14] MEDS: PROPRANOLOL HCL 20 MG TAB PO SCH ×3 (09:22→17:52)
[2016-09-14] MEDS: PANTOPRAZOLE SOD 40 MG DELAYED RELEASE TAB PO SCH ×2 (09:22→20:26)
[2016-09-14] MEDS: RIFAXIMIN 550 MG TAB PO SCH ×2 (09:22→21:00)
[2016-09-14] MEDS: CALCIUM/VITAMIN D 250 MG/125 U TAB PO SCH ×3 (09:22→17:52)
[2016-09-14 20:00] VITALS: BP 137/76; PULSE 59; RESP 18; TEMP 98.5; O2SAT 97
[2016-09-14] MEDS: traZODone HCL 50 MG TAB PO SCH (20:27)
[2016-09-15] MEDS: SUCRALFATE 1 GM/10 ML CUP PO SCH ×4 (06:03→21:12)
[2016-09-15 08:00] VITALS: BP 112/69; PULSE 59; RESP 16; TEMP 97.4; O2SAT 96
[2016-09-15] MEDS: SPIRONOLACTONE 25 MG TAB PO SCH ×2 (08:04→21:11)
[2016-09-15] MEDS: PROPRANOLOL HCL 20 MG TAB PO SCH ×3 (08:04→18:03)
[2016-09-15] MEDS: POTASSIUM CHLORIDE 20 MEQ CONTROLLED RELEASE TAB PO SCH (08:05)
[2016-09-15] MEDS: PANTOPRAZOLE SOD 40 MG DELAYED RELEASE TAB PO SCH ×2 (08:05→21:11)
[2016-09-15] MEDS: GABAPENTIN 300 MG CAP PO SCH ×2 (08:05→21:11)
[2016-09-15] MEDS: CALCIUM/VITAMIN D 250 MG/125 U TAB PO SCH ×3 (08:05→18:00)
[2016-09-15] MEDS: RIFAXIMIN 550 MG TAB PO SCH ×2 (08:05→21:11)
[2016-09-15] MEDS: MUPIROCIN 2% OINT 22 GM TUBE TOPICAL SCH ×2 (08:06→21:13)
--- NOTE | 2016-09-15 10:06 | HHI.PR ---
Subjective Remarks Patient seen and examined today. Patient has any new complaints. No change in clinical status. Objective Vitals Vital Signs Date Time Temp Pulse Resp B/P Pulse Ox O2 Delivery O2 Flow Rate FiO2 09/15/16 09:05 16 09/15/16 08:00 97.4 59 16 112/69 96 09/14/16 20:00 98.5 59 18 137/76 97 I/O 09/14/16 09/14/16 09/14/16 09/15/16 09/15/16 09/15/16 07:00 15:00 23:00 07:00 15:00 23:00 Intake Total 960 ml 420 ml 0 ml Balance 960 ml 420 ml 0 ml Intake Oral 960 ml 420 ml 0 ml # Voids 2 2 3 0 # Bowel Movements 0 1 0 Objective Remarks GENERAL: Well-developed, well-nourished, in no acute distress. alert and orientated HEENT: Head is normocephalic without any lesions or masses noted. Facial features are symmetric. Eyes: Extraocular muscles are intact. Conjunctivae were clear NECK: Trachea midline no deviation., CARDIAC: Regular rhythm, regular rate. S1/S2 are heard. No murmurs gallops or rubs. LUNGS: Clear to auscultation bilaterally. No wheeze, rhonchi or rales. No use of accessory muscles on inspiration or expiration. ABDOMEN: Soft, nontender. Nondistended. Bowel sounds heard in all 4 quadrants. No organomegaly or masses. Negative rebound, negative guarding EXTREMITIES: No edema, pulses are equal bilaterally. No cyanosis or clubbing. Right lower extremity in splint NEUROLOGY: Mood and affect appear appropriate. Cranial nerves II through XII grossly intact. Moving all extremities, speech is clear RIGHT LOWER EXTREMITY: Right great toe does have medial nail abnormality with erythema, edema, exudate. LEFT LOWER EXTREMITY: Left great toe also has nail changes medially and laterally indicating possible paronychia and redness, infection Procedures 08/03: Removal broken hardware from right tibia and fibula, open treatment of right tibia and fibula nonunion, and iliac crest bone grafting with stem cell graft. Urinary Catheter: No Vascular Central Line Catheter: No A/P Assessment and Plan Right tibia-fibula nonunion, Orthopedic managing Status post ORIF revision 08/03/[address] Camacho. Nonweightbearing, maintain splint for 3 months from surgery, 08/03/16 Pain control OxyContin 5 mg every 8 hours as needed for pain Bilateral great toe infection, paronychia Consulted podiatry who indicated and wrote orders for daily Bactroban cream and Band-Aid. Recommended outpatient follow-up Numbness bilateral feet: Persistent Patient with a workup with RPR, thyroid functions, BMP which appear to be relatively unremarkable Patient being treated for hypomagnesemia, without improvement of her numbness MRI lumbar spine indicates normal conus, mild disc bulge at L4/L5 with moderate disc bulge at L5-S1 no etiology of bilateral extremity numbness Continue Gabapentin 300 mg bid. COPD with shortness of breath and dyspnea, improved Chest x-ray did not indicate any acute abnormality Patient with good O2 saturations Continue incentive spirometry C. difficile colitis, treated Treated with oral Flagyl for total of 14 days Continue monitor stool output to see if repeat culture needs to be performed Repeat C. 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 Hemoglobin stable s/p multiple transfusion, S/p EGD 07/29/16, showed single non bleeding ulcer 3-7 mm in size gastric antrum. 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 s/p transfusion prior to surgery Liver cirrhosis, Hepatic encephalopathy with hyperammonemia, resolved Lactulose discontinued Continue rifaximin Hypertension, stable Continue propranolol and Aldactone. DVT prophylaxis: SCDs, pharmacological prophylaxis contraindicated Discharge Planning Case management in charge of discharge planning 09/02/16 1044 FOLLOWING FOR PATIENT TO BE ABLE TO SAFELY AMBULATE IN HOME SETTING. PATIENT HAS NO THERAPY BENEFITS ON INS. INS PLAN ONLY OUT PATIENT PT. SHOWS SLOW INPROVEMENT, ANSHU DEL ROSARIO SEO SPECIALIST/CM/CHARGE Isaac Leal Sep 15, 2016 10:06
[2016-09-15 12:38] VITALS: BP 116/61; PULSE 69
[2016-09-15 20:00] VITALS: BP 109/68; PULSE 58; RESP 16; TEMP 98.5; O2SAT 97
[2016-09-15] MEDS: traZODone HCL 50 MG TAB PO SCH (21:11)
[2016-09-16] MEDS: SUCRALFATE 1 GM/10 ML CUP PO SCH ×4 (05:25→21:46)
[2016-09-16 08:00] VITALS: BP 123/77; PULSE 64; RESP 16; TEMP 98.8; O2SAT 97
[2016-09-16] MEDS: CALCIUM/VITAMIN D 250 MG/125 U TAB PO SCH ×3 (08:08→16:15)
[2016-09-16] MEDS: PROPRANOLOL HCL 20 MG TAB PO SCH ×3 (08:08→16:14)
[2016-09-16] MEDS: RIFAXIMIN 550 MG TAB PO SCH ×2 (08:08→21:47)
[2016-09-16] MEDS: GABAPENTIN 300 MG CAP PO SCH ×2 (08:08→21:47)
[2016-09-16] MEDS: PANTOPRAZOLE SOD 40 MG DELAYED RELEASE TAB PO SCH ×2 (08:09→21:47)
[2016-09-16] MEDS: POTASSIUM CHLORIDE 20 MEQ CONTROLLED RELEASE TAB PO SCH (08:09)
[2016-09-16] MEDS: MUPIROCIN 2% OINT 22 GM TUBE TOPICAL SCH ×2 (08:09→21:49)
[2016-09-16] MEDS: SPIRONOLACTONE 25 MG TAB PO SCH ×2 (08:09→21:47)
--- NOTE | 2016-09-16 10:22 | HHI.PR ---
Subjective Remarks Patient seen and examined today. Patient denies any new complaints. No change in clinical status. Patient states that she thinks that her splint is loose and causing rubbing on her leg. Objective Vitals Vital Signs Date Time Temp Pulse Resp B/P Pulse Ox O2 Delivery O2 Flow Rate FiO2 09/16/16 08:00 98.8 64 16 123/77 97 09/15/16 20:00 98.5 58 16 109/68 97 09/15/16 17:06 16 09/15/16 12:38 69 116/61 I/O 09/15/16 09/15/16 09/15/16 09/16/16 09/16/16 09/16/16 06:59 14:59 22:59 06:59 14:59 22:59 Intake Total 0 ml 240 ml 420 ml 820 ml Output Total 2 ml Balance 0 ml 240 ml 418 ml 820 ml Intake Oral 0 ml 240 ml 420 ml 820 ml Output Urine Total 2 ml # Voids 0 2 4 # Bowel Movements 0 0 0 0 Objective Remarks GENERAL: Well-developed, well-nourished, in no acute distress. alert and orientated HEENT: Head is normocephalic without any lesions or masses noted. Facial features are symmetric. Eyes: Extraocular muscles are intact. Conjunctivae were clear NECK: Trachea midline no deviation., CARDIAC: Regular rhythm, regular rate. S1/S2 are heard. No murmurs gallops or rubs. LUNGS: Clear to auscultation bilaterally. No wheeze, rhonchi or rales. No use of accessory muscles on inspiration or expiration. ABDOMEN: Soft, nontender. Nondistended. Bowel sounds heard in all 4 quadrants. No organomegaly or masses. Negative rebound, negative guarding EXTREMITIES: No edema, pulses are equal bilaterally. No cyanosis or clubbing. Right lower extremity in splint NEUROLOGY: Mood and affect appear appropriate. Cranial nerves II through XII grossly intact. Moving all extremities, speech is clear RIGHT LOWER EXTREMITY: Right great toe does have medial nail abnormality with erythema, edema, exudate. LEFT LOWER EXTREMITY: Left great toe also has nail changes medially and laterally indicating possible paronychia and redness, infection Procedures 08/03: Removal broken hardware from right tibia and fibula, open treatment of right tibia and fibula nonunion, and iliac crest bone grafting with stem cell graft. Urinary Catheter: No Vascular Central Line Catheter: No A/P Assessment and Plan Right tibia-fibula nonunion, Orthopedic managing, [employer] reevaluation for possible loose splint Status post ORIF revision 08/03/[address] Camacho. Nonweightbearing, maintain splint for 3 months from surgery, 08/03/16 Pain control OxyContin 5 mg every 8 hours as needed for pain Bilateral great toe infection, paronychia Consulted podiatry who indicated and wrote orders for daily Bactroban cream and Band-Aid. Recommended outpatient follow-up Numbness bilateral feet: Persistent Patient with a workup with RPR, thyroid functions, BMP which appear to be relatively unremarkable Patient being treated for hypomagnesemia, without improvement of her numbness MRI lumbar spine indicates normal conus, mild disc bulge at L4/L5 with moderate disc bulge at L5-S1 no etiology of bilateral extremity numbness Continue Gabapentin 300 mg bid. COPD with shortness of breath and dyspnea, improved Chest x-ray did not indicate any acute abnormality Patient with good O2 saturations Continue incentive spirometry C. difficile colitis, treated Treated with oral Flagyl for total of 14 days Continue monitor stool output to see if repeat culture needs to be performed Repeat C. 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 Hemoglobin stable s/p multiple transfusion, S/p EGD 07/29/16, showed single non bleeding ulcer 3-7 mm in size gastric antrum. 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 s/p transfusion prior to surgery Liver cirrhosis, Hepatic encephalopathy with hyperammonemia, resolved Lactulose discontinued Continue rifaximin Hypertension, stable Continue propranolol and Aldactone. DVT prophylaxis: SCDs, pharmacological prophylaxis contraindicated Discharge Planning Case management in charge of discharge planning 09/02/16 1044 FOLLOWING FOR PATIENT TO BE ABLE TO SAFELY AMBULATE IN HOME SETTING. PATIENT HAS NO THERAPY BENEFITS ON INS. INS PLAN ONLY OUT PATIENT PT. SHOWS SLOW INPROVEMENT, ANSHU DEL ROSARIO CONCRETE MIXER OPERATOR/CM/CHARGE Isaac Leal Sep 16, 2016 10:22
[2016-09-16 20:00] VITALS: BP 108/73; PULSE 59; RESP 20; TEMP 98.2; O2SAT 97
[2016-09-16] MEDS: traZODone HCL 50 MG TAB PO SCH (21:47)
[2016-09-17] MEDS: SUCRALFATE 1 GM/10 ML CUP PO SCH ×4 (05:57→21:00)
[2016-09-17 07:15] VITALS: BP 97/62; PULSE 68; RESP 18; TEMP 98.6; O2SAT 95
[2016-09-17] MEDS: MUPIROCIN 2% OINT 22 GM TUBE TOPICAL SCH ×2 (09:00→21:00)
[2016-09-17] MEDS: SPIRONOLACTONE 25 MG TAB PO SCH ×2 (09:08→21:00)
[2016-09-17] MEDS: PANTOPRAZOLE SOD 40 MG DELAYED RELEASE TAB PO SCH ×2 (09:08→21:00)
[2016-09-17] MEDS: GABAPENTIN 300 MG CAP PO SCH ×2 (09:08→21:00)
[2016-09-17] MEDS: POTASSIUM CHLORIDE 20 MEQ CONTROLLED RELEASE TAB PO SCH (09:08)
[2016-09-17] MEDS: CALCIUM/VITAMIN D 250 MG/125 U TAB PO SCH ×3 (09:08→17:07)
[2016-09-17] MEDS: RIFAXIMIN 550 MG TAB PO SCH ×2 (09:08→21:00)
[2016-09-17] MEDS: PROPRANOLOL HCL 20 MG TAB PO SCH ×3 (09:09→17:07)
--- NOTE | 2016-09-17 10:02 | HHI.PR ---
Subjective Remarks Patient seen and examined today. Patient denies any new complaints. No change in clinical status. [facility] did evaluate her splint and readjusted. Patient states that it is better Objective Vitals Vital Signs Date Time Temp Pulse Resp B/P Pulse Ox O2 Delivery O2 Flow Rate FiO2 09/17/16 07:15 98.6 68 18 97/62 95 09/16/16 20:00 98.2 59 20 108/73 97 I/O 09/16/16 09/16/16 09/16/16 09/17/16 09/17/16 09/17/16 07:00 15:00 23:00 07:00 15:00 23:00 Intake Total 820 ml 650 ml 400 ml 300 ml Balance 820 ml 650 ml 400 ml 300 ml Intake Oral 820 ml 650 ml 400 ml 300 ml IV Total 0 ml 0 ml # Voids 4 2 1 2 # Bowel Movements 0 1 0 0 Objective Remarks GENERAL: Well-developed, well-nourished, in no acute distress. alert and orientated HEENT: Head is normocephalic without any lesions or masses noted. Facial features are symmetric. Eyes: Extraocular muscles are intact. Conjunctivae were clear NECK: Trachea midline no deviation., CARDIAC: Regular rhythm, regular rate. S1/S2 are heard. No murmurs gallops or rubs. LUNGS: Clear to auscultation bilaterally. No wheeze, rhonchi or rales. No use of accessory muscles on inspiration or expiration. ABDOMEN: Soft, nontender. Nondistended. Bowel sounds heard in all 4 quadrants. No organomegaly or masses. Negative rebound, negative guarding EXTREMITIES: No edema, pulses are equal bilaterally. No cyanosis or clubbing. Right lower extremity in splint NEUROLOGY: Mood and affect appear appropriate. Cranial nerves II through XII grossly intact. Moving all extremities, speech is clear RIGHT LOWER EXTREMITY: Right great toe does have medial nail abnormality with erythema, edema, exudate. LEFT LOWER EXTREMITY: Left great toe also has nail changes medially and laterally indicating possible paronychia and redness, infection Procedures 08/03: Removal broken hardware from right tibia and fibula, open treatment of right tibia and fibula nonunion, and iliac crest bone grafting with stem cell graft. Urinary Catheter: No Vascular Central Line Catheter: No A/P Assessment and Plan Right tibia-fibula nonunion, Orthopedic managing, [employer] reevaluation for possible loose splint Status post ORIF revision 08/03/[address] Camacho. Nonweightbearing, maintain splint for 3 months from surgery, 08/03/16 Pain control OxyContin 5 mg every 8 hours as needed for pain Bilateral great toe infection, paronychia Consulted podiatry who indicated and wrote orders for daily Bactroban cream and Band-Aid. Recommended outpatient follow-up Numbness bilateral feet: Persistent Patient with a workup with RPR, thyroid functions, BMP which appear to be relatively unremarkable Patient being treated for hypomagnesemia, without improvement of her numbness MRI lumbar spine indicates normal conus, mild disc bulge at L4/L5 with moderate disc bulge at L5-S1 no etiology of bilateral extremity numbness Continue Gabapentin 300 mg bid. COPD with shortness of breath and dyspnea, improved Chest x-ray did not indicate any acute abnormality Patient with good O2 saturations Continue incentive spirometry C. difficile colitis, treated Treated with oral Flagyl for total of 14 days Continue monitor stool output to see if repeat culture needs to be performed Repeat C. 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 Hemoglobin stable s/p multiple transfusion, S/p EGD 07/29/16, showed single non bleeding ulcer 3-7 mm in size gastric antrum. 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 s/p transfusion prior to surgery Liver cirrhosis, Hepatic encephalopathy with hyperammonemia, resolved Lactulose discontinued Continue rifaximin Hypertension, stable Continue propranolol and Aldactone. DVT prophylaxis: SCDs, pharmacological prophylaxis contraindicated Discharge Planning Case management in charge of discharge planning 09/02/16 1044 FOLLOWING FOR PATIENT TO BE ABLE TO SAFELY AMBULATE IN HOME SETTING. PATIENT HAS NO THERAPY BENEFITS ON INS. INS PLAN ONLY OUT PATIENT PT. SHOWS SLOW INPROVEMENT, ANSHU DEL ROSARIO CREATIVE SERVICES SPECIALIST/CM/CHARGE Isaac Leal Sep 17, 2016 10:02
[2016-09-17 19:15] VITALS: BP 110/70; PULSE 60; RESP 18; TEMP 98.6; O2SAT 98
[2016-09-17] MEDS: traZODone HCL 50 MG TAB PO SCH (21:00)
[2016-09-18] MEDS: SUCRALFATE 1 GM/10 ML CUP PO SCH ×4 (06:11→20:31)
[2016-09-18 08:00] VITALS: BP 117/75; PULSE 65; RESP 17; TEMP 97.7; O2SAT 95
[2016-09-18] MEDS: POTASSIUM CHLORIDE 20 MEQ CONTROLLED RELEASE TAB PO SCH (08:45)
[2016-09-18] MEDS: PANTOPRAZOLE SOD 40 MG DELAYED RELEASE TAB PO SCH ×2 (08:45→20:31)
[2016-09-18] MEDS: SPIRONOLACTONE 25 MG TAB PO SCH ×2 (08:45→20:31)
[2016-09-18] MEDS: RIFAXIMIN 550 MG TAB PO SCH ×2 (08:45→20:31)
[2016-09-18] MEDS: CALCIUM/VITAMIN D 250 MG/125 U TAB PO SCH ×3 (08:45→17:37)
[2016-09-18] MEDS: GABAPENTIN 300 MG CAP PO SCH ×2 (08:45→20:31)
[2016-09-18] MEDS: PROPRANOLOL HCL 20 MG TAB PO SCH ×3 (08:45→17:37)
[2016-09-18] MEDS: MUPIROCIN 2% OINT 22 GM TUBE TOPICAL SCH ×2 (08:46→20:33)
--- NOTE | 2016-09-18 09:52 | HHI.PR ---
Subjective Remarks Patient seen and examined today. Patient denies any new complaints. No change in clinical status. Objective Vitals Vital Signs Date Time Temp Pulse Resp B/P Pulse Ox O2 Delivery O2 Flow Rate FiO2 09/18/16 08:00 97.7 65 17 117/75 95 09/18/16 03:49 14 09/17/16 19:15 98.6 60 18 110/70 98 I/O 09/17/16 09/17/16 09/17/16 09/18/16 09/18/16 09/18/16 07:00 15:00 23:00 07:00 15:00 23:00 Intake Total 300 ml 0 ml 50 ml Balance 300 ml 0 ml 50 ml Intake Oral 300 ml 50 ml IV Total 0 ml 0 ml # Voids 2 # Bowel Movements 0 Objective Remarks GENERAL: Well-developed, well-nourished, in no acute distress. alert and orientated HEENT: Head is normocephalic without any lesions or masses noted. Facial features are symmetric. Eyes: Extraocular muscles are intact. Conjunctivae were clear NECK: Trachea midline no deviation., CARDIAC: Regular rhythm, regular rate. S1/S2 are heard. No murmurs gallops or rubs. LUNGS: Clear to auscultation bilaterally. No wheeze, rhonchi or rales. No use of accessory muscles on inspiration or expiration. ABDOMEN: Soft, nontender. Nondistended. Bowel sounds heard in all 4 quadrants. No organomegaly or masses. Negative rebound, negative guarding EXTREMITIES: No edema, pulses are equal bilaterally. No cyanosis or clubbing. Right lower extremity in splint NEUROLOGY: Mood and affect appear appropriate. Cranial nerves II through XII grossly intact. Moving all extremities, speech is clear RIGHT LOWER EXTREMITY: Right great toe does have medial nail abnormality with erythema, edema, exudate. LEFT LOWER EXTREMITY: Left great toe also has nail changes medially and laterally indicating possible paronychia and redness, infection Procedures 08/03: Removal broken hardware from right tibia and fibula, open treatment of right tibia and fibula nonunion, and iliac crest bone grafting with stem cell graft. Urinary Catheter: No Vascular Central Line Catheter: No A/P Assessment and Plan Right tibia-fibula nonunion, Orthopedic managing, [facility] reevaluation for possible loose splint Status post ORIF revision 08/03/[address] Camacho. Nonweightbearing, maintain splint for 3 months from surgery, 08/03/16 Pain control OxyContin 5 mg every 8 hours as needed for pain Bilateral great toe infection, paronychia Consulted podiatry who indicated and wrote orders for daily Bactroban cream and Band-Aid. Recommended outpatient follow-up Numbness bilateral feet: Persistent Patient with a workup with RPR, thyroid functions, BMP which appear to be relatively unremarkable Patient being treated for hypomagnesemia, without improvement of her numbness MRI lumbar spine indicates normal conus, mild disc bulge at L4/L5 with moderate disc bulge at L5-S1 no etiology of bilateral extremity numbness Continue Gabapentin 300 mg bid. COPD with shortness of breath and dyspnea, improved Chest x-ray did not indicate any acute abnormality Patient with good O2 saturations Continue incentive spirometry C. difficile colitis, treated Treated with oral Flagyl for total of 14 days Continue monitor stool output to see if repeat culture needs to be performed Repeat C. 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 Hemoglobin stable s/p multiple transfusion, S/p EGD 07/29/16, showed single non bleeding ulcer 3-7 mm in size gastric antrum. 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 s/p transfusion prior to surgery Liver cirrhosis, Hepatic encephalopathy with hyperammonemia, resolved Lactulose discontinued Continue rifaximin Hypertension, stable Continue propranolol and Aldactone. DVT prophylaxis: SCDs, pharmacological prophylaxis contraindicated Discharge Planning Case management in charge of discharge planning 09/02/16 1044 FOLLOWING FOR PATIENT TO BE ABLE TO SAFELY AMBULATE IN HOME SETTING. PATIENT HAS NO THERAPY BENEFITS ON INS. INS PLAN ONLY OUT PATIENT PT. SHOWS SLOW INPROVEMENT, ANSHU DEL ROSARIO GEOMORPHOLOGY TEACHER/CM/CHARGE Isaac Leal Sep 18, 2016 09:52
[2016-09-18] MEDS: ACETAMINOPHEN 325 MG TAB PO PRN (15:55)
[2016-09-18 20:25] VITALS: BP 95/60; PULSE 69; RESP 14; TEMP 97.8; O2SAT 94
[2016-09-18] MEDS: traZODone HCL 50 MG TAB PO SCH (20:32)
[2016-09-19] MEDS: SUCRALFATE 1 GM/10 ML CUP PO SCH ×4 (06:19→20:41)
[2016-09-19 08:00] VITALS: BP 123/75; PULSE 88; RESP 18; TEMP 98.7; O2SAT 94
[2016-09-19] MEDS: PROPRANOLOL HCL 20 MG TAB PO SCH ×3 (08:51→17:48)
[2016-09-19] MEDS: POTASSIUM CHLORIDE 20 MEQ CONTROLLED RELEASE TAB PO SCH (08:51)
[2016-09-19] MEDS: CALCIUM/VITAMIN D 250 MG/125 U TAB PO SCH ×3 (08:51→17:48)
[2016-09-19] MEDS: RIFAXIMIN 550 MG TAB PO SCH ×2 (08:51→20:41)
[2016-09-19] MEDS: SPIRONOLACTONE 25 MG TAB PO SCH ×2 (08:51→20:41)
[2016-09-19] MEDS: GABAPENTIN 300 MG CAP PO SCH ×2 (08:51→20:41)
[2016-09-19] MEDS: PANTOPRAZOLE SOD 40 MG DELAYED RELEASE TAB PO SCH ×2 (08:51→20:41)
[2016-09-19] MEDS: MUPIROCIN 2% OINT 22 GM TUBE TOPICAL SCH ×2 (08:52→20:42)
--- NOTE | 2016-09-19 10:22 | HHI.PR ---
Subjective Remarks Patient seen and examined today. Patient denies any new complaints. No change in clinical status. Objective Vitals Vital Signs Date Time Temp Pulse Resp B/P Pulse Ox O2 Delivery O2 Flow Rate FiO2 09/19/16 08:00 98.7 88 18 123/75 94 09/19/16 06:00 14 09/18/16 20:25 97.8 69 14 95/60 94 09/18/16 16:55 16 I/O 09/18/16 09/18/16 09/18/16 09/19/16 09/19/16 09/19/16 07:00 15:00 23:00 07:00 15:00 23:00 Intake Total 50 ml 240 ml Balance 50 ml 240 ml Intake Oral 50 ml 240 ml # Voids 1 1 1 # Bowel Movements 0 Objective Remarks GENERAL: Well-developed, well-nourished, in no acute distress. alert and orientated HEENT: Head is normocephalic without any lesions or masses noted. Facial features are symmetric. Eyes: Extraocular muscles are intact. Conjunctivae were clear NECK: Trachea midline no deviation., CARDIAC: Regular rhythm, regular rate. S1/S2 are heard. No murmurs gallops or rubs. LUNGS: Clear to auscultation bilaterally. No wheeze, rhonchi or rales. No use of accessory muscles on inspiration or expiration. ABDOMEN: Soft, nontender. Nondistended. Bowel sounds heard in all 4 quadrants. No organomegaly or masses. Negative rebound, negative guarding EXTREMITIES: No edema, pulses are equal bilaterally. No cyanosis or clubbing. Right lower extremity in splint NEUROLOGY: Mood and affect appear appropriate. Cranial nerves II through XII grossly intact. Moving all extremities, speech is clear RIGHT LOWER EXTREMITY: Right great toe does have medial nail abnormality with erythema, edema, exudate. LEFT LOWER EXTREMITY: Left great toe also has nail changes medially and laterally indicating possible paronychia and redness, infection Procedures 08/03: Removal broken hardware from right tibia and fibula, open treatment of right tibia and fibula nonunion, and iliac crest bone grafting with stem cell graft. Urinary Catheter: No Vascular Central Line Catheter: No A/P Assessment and Plan Right tibia-fibula nonunion, Orthopedic managing, [facility] reevaluation for possible loose splint Status post ORIF revision 08/03/[address] Camacho. Nonweightbearing, maintain splint for 3 months from surgery, 08/03/16 Pain control OxyContin 5 mg every 8 hours as needed for pain Bilateral great toe infection, paronychia Consulted podiatry who indicated and wrote orders for daily Bactroban cream and Band-Aid. Recommended outpatient follow-up Numbness bilateral feet: Persistent Patient with a workup with RPR, thyroid functions, BMP which appear to be relatively unremarkable Patient being treated for hypomagnesemia, without improvement of her numbness MRI lumbar spine indicates normal conus, mild disc bulge at L4/L5 with moderate disc bulge at L5-S1 no etiology of bilateral extremity numbness Continue Gabapentin 300 mg bid. COPD with shortness of breath and dyspnea, improved Chest x-ray did not indicate any acute abnormality Patient with good O2 saturations Continue incentive spirometry C. difficile colitis, treated Treated with oral Flagyl for total of 14 days Continue monitor stool output to see if repeat culture needs to be performed Repeat C. 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 Hemoglobin stable s/p multiple transfusion, S/p EGD 07/29/16, showed single non bleeding ulcer 3-7 mm in size gastric antrum. 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 s/p transfusion prior to surgery Liver cirrhosis, Hepatic encephalopathy with hyperammonemia, resolved Lactulose discontinued Continue rifaximin Hypertension, stable Continue propranolol and Aldactone. DVT prophylaxis: SCDs, pharmacological prophylaxis contraindicated Discharge Planning Case management in charge of discharge planning 09/02/16 1044 FOLLOWING FOR PATIENT TO BE ABLE TO SAFELY AMBULATE IN HOME SETTING. PATIENT HAS NO THERAPY BENEFITS ON INS. INS PLAN ONLY OUT PATIENT PT. SHOWS SLOW INPROVEMENT, ANSHU DEL ROSARIO SENIOR INFORMATION DEVELOPER/CM/CHARGE Isaac Leal Sep 19, 2016 10:22
[2016-09-19] MEDS: ACETAMINOPHEN 325 MG TAB PO PRN (16:16)
[2016-09-19 20:00] VITALS: BP 101/63; PULSE 64; RESP 16; TEMP 98.7; O2SAT 96
[2016-09-19] MEDS: traZODone HCL 50 MG TAB PO SCH (20:41)
[2016-09-20] MEDS: SUCRALFATE 1 GM/10 ML CUP PO SCH ×4 (06:36→20:42)
[2016-09-20 08:00] VITALS: BP 107/80; PULSE 59; RESP 16; TEMP 97.2; O2SAT 97
[2016-09-20] MEDS: PROPRANOLOL HCL 20 MG TAB PO SCH ×3 (08:44→16:32)
[2016-09-20] MEDS: CALCIUM/VITAMIN D 250 MG/125 U TAB PO SCH ×3 (08:45→16:32)
[2016-09-20] MEDS: GABAPENTIN 300 MG CAP PO SCH ×2 (08:45→20:44)
[2016-09-20] MEDS: MUPIROCIN 2% OINT 22 GM TUBE TOPICAL SCH ×2 (08:45→20:46)
[2016-09-20] MEDS: PANTOPRAZOLE SOD 40 MG DELAYED RELEASE TAB PO SCH ×2 (08:45→20:44)
[2016-09-20] MEDS: POTASSIUM CHLORIDE 20 MEQ CONTROLLED RELEASE TAB PO SCH (08:45)
[2016-09-20] MEDS: SPIRONOLACTONE 25 MG TAB PO SCH ×2 (08:45→20:44)
[2016-09-20] MEDS: RIFAXIMIN 550 MG TAB PO SCH ×2 (08:45→20:43)
[2016-09-20] MEDS: ACETAMINOPHEN 325 MG TAB PO PRN (09:59)
--- NOTE | 2016-09-20 11:56 | HHI.PR ---
Subjective Remarks Patient seen and examined today. Patient denies any new complaints. No change clinical status. Objective Vitals Vital Signs Date Time Temp Pulse Resp B/P Pulse Ox O2 Delivery O2 Flow Rate FiO2 09/20/16 08:00 97.2 59 16 107/80 97 09/20/16 06:32 14 09/19/16 20:00 98.7 64 16 101/63 96 I/O 09/19/16 09/19/16 09/19/16 09/20/16 09/20/16 09/20/16 07:00 15:00 23:00 07:00 15:00 23:00 Intake Total 180 ml Balance 180 ml Intake Oral 180 ml # Voids 1 1 1 1 # Bowel Movements 0 0 0 Objective Remarks GENERAL: Well-developed, well-nourished, in no acute distress. alert and orientated HEENT: Head is normocephalic without any lesions or masses noted. Facial features are symmetric. Eyes: Extraocular muscles are intact. Conjunctivae were clear NECK: Trachea midline no deviation., CARDIAC: Regular rhythm, regular rate. S1/S2 are heard. No murmurs gallops or rubs. LUNGS: Clear to auscultation bilaterally. No wheeze, rhonchi or rales. No use of accessory muscles on inspiration or expiration. ABDOMEN: Soft, nontender. Nondistended. Bowel sounds heard in all 4 quadrants. No organomegaly or masses. Negative rebound, negative guarding EXTREMITIES: No edema, pulses are equal bilaterally. No cyanosis or clubbing. Right lower extremity in splint NEUROLOGY: Mood and affect appear appropriate. Cranial nerves II through XII grossly intact. Moving all extremities, speech is clear RIGHT LOWER EXTREMITY: Right great toe does have medial nail abnormality with erythema, edema, exudate. LEFT LOWER EXTREMITY: Left great toe also has nail changes medially and laterally indicating possible paronychia and redness, infection Procedures 08/03: Removal broken hardware from right tibia and fibula, open treatment of right tibia and fibula nonunion, and iliac crest bone grafting with stem cell graft. Urinary Catheter: No Vascular Central Line Catheter: No A/P Assessment and Plan Right tibia-fibula nonunion, Orthopedic managing, [facility] reevaluation for possible loose splint Status post ORIF revision 08/03/[address] Camacho. Nonweightbearing, maintain splint for 3 months from surgery, 08/03/16 Pain control OxyContin 5 mg every 8 hours as needed for pain Bilateral great toe infection, paronychia Consulted podiatry who indicated and wrote orders for daily Bactroban cream and Band-Aid. Recommended outpatient follow-up Numbness bilateral feet: Persistent Patient with a workup with RPR, thyroid functions, BMP which appear to be relatively unremarkable Patient being treated for hypomagnesemia, without improvement of her numbness MRI lumbar spine indicates normal conus, mild disc bulge at L4/L5 with moderate disc bulge at L5-S1 no etiology of bilateral extremity numbness Continue Gabapentin 300 mg bid. COPD with shortness of breath and dyspnea, improved Chest x-ray did not indicate any acute abnormality Patient with good O2 saturations Continue incentive spirometry C. difficile colitis, treated Treated with oral Flagyl for total of 14 days Continue monitor stool output to see if repeat culture needs to be performed Repeat C. 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 Hemoglobin stable s/p multiple transfusion, S/p EGD 07/29/16, showed single non bleeding ulcer 3-7 mm in size gastric antrum. 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 s/p transfusion prior to surgery Liver cirrhosis, Hepatic encephalopathy with hyperammonemia, resolved Lactulose discontinued Continue rifaximin Hypertension, stable Continue propranolol and Aldactone. DVT prophylaxis: SCDs, pharmacological prophylaxis contraindicated Discharge Planning Case management in charge of discharge planning 09/02/16 1044 FOLLOWING FOR PATIENT TO BE ABLE TO SAFELY AMBULATE IN HOME SETTING. PATIENT HAS NO THERAPY BENEFITS ON INS. INS PLAN ONLY OUT PATIENT PT. SHOWS SLOW INPROVEMENT, ANSHU DEL ROSARIO CRITICAL CARE NURSE PRACTITIONER/CM/CHARGE Isaac Leal Sep 20, 2016 11:56
[2016-09-20 20:00] VITALS: BP 117/68; PULSE 65; RESP 16; TEMP 98.3; O2SAT 96
[2016-09-20] MEDS: traZODone HCL 50 MG TAB PO SCH (20:50)
[2016-09-21] MEDS: SUCRALFATE 1 GM/10 ML CUP PO SCH ×4 (05:06→21:13)
[2016-09-21 08:48] VITALS: BP 120/71; PULSE 65; RESP 18; TEMP 98.3; O2SAT 93
--- NOTE | 2016-09-21 09:08 | HHI.PR ---
Subjective Remarks F/u status post ORIF right lower extremity. Patient states that she has had nausea and fatigue for the past week. She admits to headaches and myalgias although denies current headache. Denies any runny nose, congestion, sore throat. Denies any vomiting or diarrhea. She does request to have repeat blood work as her hemoglobin has been low in the past. Objective Vitals Vital Signs Date Time Temp Pulse Resp B/P Pulse Ox O2 Delivery O2 Flow Rate FiO2 09/21/16 08:48 98.3 65 18 120/71 93 09/20/16 20:00 98.3 65 16 117/68 96 I/O 09/20/16 09/20/16 09/20/16 09/21/16 09/21/16 09/21/16 07:00 15:00 23:00 07:00 15:00 23:00 Intake Total 480 ml 480 ml 240 ml Balance 480 ml 480 ml 240 ml Intake Oral 480 ml 480 ml 240 ml # Voids 1 2 1 1 # Bowel Movements 0 1 0 0 Objective Remarks GENERAL: Pleasant well-nourished, well-developed patient in no apparent distress sitting on edge of bed. SKIN: Warm and dry. Erythema noted around nails of right foot, but appears improved. CARDIOVASCULAR: Regular rate and rhythm. RESPIRATORY: No accessory muscle use. Clear to auscultation. Breath sounds equal bilaterally. MUSCULOSKELETAL: Splint to right lower extremity. Moves R toes. NEUROLOGICAL: Awake and alert. Normal speech. PSYCHIATRIC: Appropriate mood and affect; insight and judgment normal. Procedures 08/03: Removal broken hardware from right tibia and fibula, open treatment of right tibia and fibula nonunion, and iliac crest bone grafting with stem cell graft. Urinary Catheter: No Vascular Central Line Catheter: No A/P Problem List: (1) Hepatitis C ICD Code: B19.20 Status: Chronic (2) Cirrhosis of liver ICD Code: K74.60 Status: Chronic (3) Acute renal failure ICD Code: N17.9 Status: Acute (4) Fracture of distal end of tibia with fibula ICD Code: S82.309A Status: Chronic (5) Anemia ICD Code: D64.9 Status: Acute (6) Hypokalemia ICD Code: E87.6 Status: Acute (7) Thrombocytopenia ICD Code: D69.6 Status: Acute (8) Clostridium difficile colitis ICD Code: A04.7 Status: Acute (9) Gastric ulcer ICD Code: K25.9 Status: Acute (10) Pancytopenia ICD Code: D61.818 Status: Acute (11) Hepatic encephalopathy ICD Code: K72.90 Status: Acute (12) Numbness in feet ICD Code: R20.0 Status: Acute (13) Chronic paronychia of finger ICD Code: L03.019 Status: Acute (14) Chronic paronychia of toe ICD Code: L03.039 Status: Acute Assessment and Plan Right tibia-fibula nonunion, Orthopedics managing, last evaluated patient on 09/09/16. Ortho ordered new x- rays; patient can progress to a fracture boot next week. Status post ORIF revision 08/03/[address] Camacho. Nonweightbearing, will need rehabilitation. Pain control: Avoid acetaminophen use. Oxycodone 5 mg every 8 hours as needed for pain COPD with shortness of breath and dyspnea, improved Chest x-ray did not indicate any acute abnormality Patient with good O2 saturations Continue incentive spirometry C. difficile colitis, treated Treated with oral Flagyl for total of 14 days Repeat C.diff test 09/01 negative. 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 Hemoglobin improved today at 11.1. s/p multiple transfusion, S/p EGD 07/29/16, showed single non bleeding ulcer 3-7 mm in size gastric antrum. Continue Protonix, Thrombocytopenia: Worse at 67 today. 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 s/p transfusion prior to surgery Repeat am CBC. Liver cirrhosis, Hepatic encephalopathy with hyperammonemia. Ammonia 45 on . Lactulose discontinued Ammonia level 08/27 improved to 40. Continue Rifaximin Hypertension, stable Continue propranolol and Aldactone. Numbness bilateral feet: L foot mildly improving. H/o alcohol abuse. -B12 was 1449 on 07/27. Folate was normal. -RPR nonreactive. -TSH mildly elevated at 5.080. Free T3 normal and Free T4 1.47, relatively normal. -S/p Magnesium repletion. -Thiamine level at the lower limit of normal. -Continue Gabapentin 300 mg bid. -MRI lumbar spine indicates normal conus, mild disc bulge at L4/L5 with moderate disc bulge at L5-S1 no etiology of bilateral lower extremity numbness Paronychia: Patient has skin changes around the nails to both feet and a few fingers that appears as chronic paronychia. No acute abscess is evident, but colleague noted some exudate and possible acute infection of great toes. Patient admits to picking under and biting her fingernails as well as having ingrown toenails. -S/p soaking in warm water with Epsom salt. -S/p triamcinolone acetonide 0.1% ointment. -Patient advised against biting her nails due to risk of infection. -Podiatry evaluated the patient on 09/09 and clipped all nails. Orders for daily mupirocin/bandaid to R hallux and 2nd toenail. States can f/u in office. Signed off. H/o ulcer and gastric varices: Continue Carafate. Nausea/fatigue/myalgias: Could have a viral syndrome. Patient has no upper respiratory symptoms so unlikely to be influenza. Patient remains afebrile. -CBC ordered this am. Normal WBC count with normal neutrophil count as well as lymphocyte count. VIMAL: BUN/Cr acutely worse at 23/1.40, previous BUN 6. Appears to have CKD on record review, although stage fluctuates. -Will order 2 L IV NS @ 84 mL/hr and encourage po hydration. -Avoid nephrotoxins. -Repeat BMP in the am. DVT prophylaxis: SCDs, pharmacological prophylaxis contraindicated. Discharge Planning manager core following. Will require clearance by orthopedics. Alix Johnson Sep 21, 2016 09:07
[2016-09-21] MEDS: SPIRONOLACTONE 25 MG TAB PO SCH ×2 (09:27→21:13)
[2016-09-21] MEDS: PANTOPRAZOLE SOD 40 MG DELAYED RELEASE TAB PO SCH ×2 (09:27→21:13)
[2016-09-21] MEDS: POTASSIUM CHLORIDE 20 MEQ CONTROLLED RELEASE TAB PO SCH (09:27)
[2016-09-21] MEDS: RIFAXIMIN 550 MG TAB PO SCH ×2 (09:27→21:13)
[2016-09-21] MEDS: CALCIUM/VITAMIN D 250 MG/125 U TAB PO SCH ×3 (09:27→18:27)
[2016-09-21] MEDS: PROPRANOLOL HCL 20 MG TAB PO SCH ×3 (09:27→18:27)
[2016-09-21] MEDS: GABAPENTIN 300 MG CAP PO SCH ×2 (09:27→21:13)
[2016-09-21] MEDS: MUPIROCIN 2% OINT 22 GM TUBE TOPICAL SCH ×2 (09:28→21:15)
[2016-09-21 10:11] LABS: AUTOMATED NEUTROPHIL # 2.1 TH/MM3 (1.8-7.7); BASOPHIL # 0.1 TH/MM3 (0-0.2); BASOPHIL % 2.7 % (0.0-2.0); EOSINOPHIL # 0.5 TH/MM3 (0-0.4); EOSINOPHIL % 11.4 % (0.0-4.0); HEMATOCRIT 32.7 % (35.0-46.0); LYMPH % 27.8 % (9.0-44.0); LYMPHOCYTE # 1.2 TH/MM3 (1.0-4.8); MEAN CELL VOLUME 92.1 FL (80.0-100.0); MEAN CORPUSCULAR HEMOGLOBIN 31.2 PG (27.0-34.0); MEAN CORPUSCULAR HGB CONC 33.9 % (32.0-36.0); MONO % 10.6 % (0.0-8.0); NEUT % 47.5 % (16.0-70.0); PLATELET COUNT 67 TH/MM3 (150-450); RED BLOOD COUNT 3.55 MIL/MM3 (4.00-5.30); WHITE BLOOD COUNT 4.4 TH/MM3 (4.0-11.0)
[2016-09-21 10:13] LABS: HEMO FLAGS AUTO DIFF
[2016-09-21 10:29] LABS: POTASSIUM 4.3 MEQ/L (3.5-5.1)
[2016-09-21 10:32] LABS: BICARBONATE 24.4 MEQ/L (21.0-32.0)
[2016-09-21 10:39] LABS: SCAN/DIFF AUTO DIFF CONFIRMED
[2016-09-21] MEDS: ACETAMINOPHEN 325 MG TAB PO PRN (11:51)
[2016-09-21] MEDS: SODIUM CHLOR 0.9% 1000 ML INJ 1,000 ML IV SCH (14:16)
[2016-09-21 20:00] VITALS: BP 104/63; PULSE 59; RESP 16; TEMP 98.3
[2016-09-21] MEDS: traZODone HCL 50 MG TAB PO SCH (21:13)
[2016-09-22] MEDS: SODIUM CHLOR 0.9% 1000 ML INJ 1,000 ML IV SCH ×3 (01:55→23:45)
[2016-09-22 05:17] LABS: HEMATOCRIT 29.6 % (35.0-46.0); MEAN CELL VOLUME 91.6 FL (80.0-100.0); MEAN CORPUSCULAR HEMOGLOBIN 30.2 PG (27.0-34.0); PLATELET COUNT 55 TH/MM3 (150-450); RED BLOOD COUNT 3.23 MIL/MM3 (4.00-5.30); RED CELL DISTRIBUTION WIDTH 15.8 % (11.6-17.2); WHITE BLOOD COUNT 3.8 TH/MM3 (4.0-11.0)
[2016-09-22 05:20] LABS: POTASSIUM 4.7 MEQ/L (3.5-5.1)
[2016-09-22] MEDS: SUCRALFATE 1 GM/10 ML CUP PO SCH ×4 (05:35→20:38)
[2016-09-22 06:19] LABS: REVIEW FLAG FINAL
[2016-09-22 06:53] LABS: BICARBONATE 23.9 MEQ/L (21.0-32.0)
[2016-09-22 08:00] VITALS: BP 116/63; PULSE 67; RESP 17; TEMP 98.2; O2SAT 96
[2016-09-22] MEDS: SPIRONOLACTONE 25 MG TAB PO SCH ×2 (08:46→20:39)
[2016-09-22] MEDS: GABAPENTIN 300 MG CAP PO SCH ×2 (08:46→20:39)
[2016-09-22] MEDS: PANTOPRAZOLE SOD 40 MG DELAYED RELEASE TAB PO SCH ×2 (08:46→20:39)
[2016-09-22] MEDS: PROPRANOLOL HCL 20 MG TAB PO SCH ×3 (08:46→17:54)
[2016-09-22] MEDS: CALCIUM/VITAMIN D 250 MG/125 U TAB PO SCH ×3 (08:46→17:55)
[2016-09-22] MEDS: RIFAXIMIN 550 MG TAB PO SCH ×2 (08:46→20:39)
[2016-09-22] MEDS: MUPIROCIN 2% OINT 22 GM TUBE TOPICAL SCH (08:47)
[2016-09-22] MEDS: POTASSIUM CHLORIDE 20 MEQ CONTROLLED RELEASE TAB PO SCH (09:14)
--- NOTE | 2016-09-22 14:35 | HHI.PR ---
Subjective Remarks Seen and evaluated in follow-up for fracture and for continued physical therapy after fracture. Platelets a bit low today however there is no active bleeding or increased bruises. Patient complaining of fatigue Objective Vitals Vital Signs Date Time Temp Pulse Resp B/P Pulse Ox O2 Delivery O2 Flow Rate FiO2 09/22/16 08:00 98.2 67 17 116/63 96 09/22/16 06:50 16 09/21/16 20:00 98.3 59 16 104/63 I/O 09/21/16 09/21/16 09/21/16 09/22/16 09/22/16 09/22/16 07:00 15:00 23:00 07:00 15:00 23:00 Intake Total 240 ml 1012 ml 744 ml Balance 240 ml 1012 ml 744 ml Intake Oral 240 ml 480 ml 240 ml IV Total 532 ml 504 ml # Voids 1 2 1 2 # Bowel Movements 0 0 0 Result Diagram: 09/22/16 0430 09/22/16 0430 Objective Remarks GENERAL: This is a well-nourished, well-developed patient, in no apparent distress. CARDIOVASCULAR: Regular rate and rhythm without murmurs, gallops, or rubs. RESPIRATORY: Clear to auscultation. Breath sounds equal bilaterally. No wheezes , rales, or rhonchi. GASTROINTESTINAL: Abdomen soft, non-tender, nondistended. Normal active bowel sounds MUSCULOSKELETAL: Extremities without clubbing, cyanosis, or edema. NEURO: Alert & Oriented x4 to person, place, time, situation. Moves all ext x4 Procedures 08/03: Removal broken hardware from right tibia and fibula, open treatment of right tibia and fibula nonunion, and iliac crest bone grafting with stem cell graft. A/P Problem List: (1) Cirrhosis of liver ICD Code: K74.60 Status: Chronic Plan: due to etoh Hep C (2) Fracture of distal end of tibia with fibula ICD Code: S82.309A Status: Chronic Plan: fracture boot soon Status post ORIF revision 08/03/[address] Camacho. Nonweightbearing, will need rehabilitation. Pain control: Avoid acetaminophen use. Oxycodone 5 mg every 8 hours as needed for pain (3) Thrombocytopenia ICD Code: D69.6 Status: Acute Plan: Thrombocytopenia: Worse at 57 today. 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 s/p transfusion prior to surgery Repeat am CBC in am. Discharge Planning Patient will need continued physical therapy and is unsafe discharge at this time. Gloria Matthews MD Sep 22, 2016 14:35
[2016-09-22 20:00] VITALS: BP 105/74; PULSE 62; RESP 20; TEMP 98.5; O2SAT 99
[2016-09-22] MEDS: traZODone HCL 50 MG TAB PO SCH (20:39)
[2016-09-23 04:51] LABS: AUTOMATED NEUTROPHIL # 1.5 TH/MM3 (1.8-7.7); BASOPHIL % 0.8 % (0.0-2.0); EOSINOPHIL # 0.3 TH/MM3 (0-0.4); EOSINOPHIL % 8.7 % (0.0-4.0); HEMATOCRIT 30.1 % (35.0-46.0); LYMPH % 38.8 % (9.0-44.0); LYMPHOCYTE # 1.4 TH/MM3 (1.0-4.8); MEAN CELL VOLUME 90.1 FL (80.0-100.0); MEAN CORPUSCULAR HEMOGLOBIN 29.8 PG (27.0-34.0); MEAN CORPUSCULAR HGB CONC 33.1 % (32.0-36.0); MONO % 10.2 % (0.0-8.0); NEUT % 41.5 % (16.0-70.0); PLATELET COUNT 59 TH/MM3 (150-450); RED BLOOD COUNT 3.34 MIL/MM3 (4.00-5.30); RED CELL DISTRIBUTION WIDTH 15.3 % (11.6-17.2); WHITE BLOOD COUNT 3.6 TH/MM3 (4.0-11.0)
[2016-09-23 04:55] LABS: HEMO FLAGS AUTO DIFF
[2016-09-23 05:11] LABS: PLATELET ESTIMATE SMEAR LOW (NORMAL); PLATELET MORPHOLOGY NORMAL (NORMAL); SCAN/DIFF AUTO DIFF CONFIRMED
[2016-09-23] MEDS: SUCRALFATE 1 GM/10 ML CUP PO SCH ×4 (06:01→22:02)
[2016-09-23 08:00] VITALS: BP 119/70; PULSE 67; RESP 16; TEMP 96.9; O2SAT 96
[2016-09-23] MEDS: MUPIROCIN 2% OINT 22 GM TUBE TOPICAL SCH ×2 (09:00→22:03)
--- NOTE | 2016-09-23 09:00 | HHI.PR ---
Subjective Remarks Follow-up for ORIF right lower extremity. Patient still admits to feeling tired and nauseous. Does not feel physical improvement with fluids. Objective Vitals Vital Signs Date Time Temp Pulse Resp B/P Pulse Ox O2 Delivery O2 Flow Rate FiO2 09/22/16 20:00 98.5 62 20 105/74 99 I/O 09/22/16 09/22/16 09/22/16 09/23/16 09/23/16 09/23/16 07:00 15:00 23:00 07:00 15:00 23:00 Intake Total 744 ml 588 ml 1141 ml 1033 ml Balance 744 ml 588 ml 1141 ml 1033 ml Intake Oral 240 ml 240 ml IV Total 504 ml 588 ml 1141 ml 793 ml # Voids 2 3 2 # Bowel Movements 0 0 0 Result Diagram: 09/23/16 0420 09/22/16 0430 Imaging Last Impressions Ankle X-Ray 09/09/16 0000 Signed Impressions: Service Date/Time: August 19:28 - CONCLUSION: Nonacute fractures of the distal tibia and fibula status post screw and plate fixation seen through cast. No significant change in the radiographic appearance. Please see above. Tony Hdez MD Lumbar Spine MRI 09/01/16 0000 Signed Impressions: Service Date/Time: Thursday, September 01, 2016 11:04 - CONCLUSION: Signal intensity is normal in the conus. Mild disc bulging at L4-5 with moderate disc bulge at L5-S1. This does not look like a cause of bilateral extremity numbness. Correlation is suggested. Ramos Lo MD FACR Chest X-Ray 08/20/16 0000 Signed Impressions: Service Date/Time: Saturday, August 20, 2016 14:29 - CONCLUSION: No acute disease. Tom Greene MD Lower Extremity Ultrasound 08/16/16 0000 Signed Impressions: Service Date/Time: Tuesday, August 16, 2016 16:40 - CONCLUSION: Normal examination. Tony Moya MD Spleen Ultrasound 07/28/16 0000 Signed Impressions: Service Date/Time: Thursday, July 28, 2016 15:26 - CONCLUSION: Normal size spleen. Ramos Lo MD FACR Objective Remarks GENERAL: Pleasant well-nourished, well-developed patient sleeping in no apparent distress when I enter the room. CARDIOVASCULAR: Regular rate and rhythm. Equivocal murmur over pulmonic region. RESPIRATORY: No accessory muscle use. Clear to auscultation. Breath sounds equal bilaterally. GASTROINTESTINAL: Abdomen soft, nontender, nondistended. MUSCULOSKELETAL: Splint to right lower extremity. NEUROLOGICAL: Somnolent but arouses to voice and answers questions appropriately. Normal speech. PSYCHIATRIC: Appropriate mood and affect; insight and judgment normal. Procedures 08/03: Removal broken hardware from right tibia and fibula, open treatment of right tibia and fibula nonunion, and iliac crest bone grafting with stem cell graft. Urinary Catheter: No Vascular Central Line Catheter: No A/P Problem List: (1) Cirrhosis of liver ICD Code: K74.60 Status: Chronic (2) Fracture of distal end of tibia with fibula ICD Code: S82.309A Status: Chronic (3) Thrombocytopenia ICD Code: D69.6 Status: Acute Assessment and Plan Right tibia-fibula nonunion, Orthopedics managing, last evaluated patient on 09/09/16. Ortho ordered new x- rays; patient can progress to a fracture boot next week. Status post ORIF revision 08/03/[address] Camacho. Nonweightbearing, will need rehabilitation. Pain control: Avoid acetaminophen use. Oxycodone 5 mg every 8 hours as needed for pain COPD with shortness of breath and dyspnea, improved Chest x-ray did not indicate any acute abnormality Patient with good O2 saturations Continue incentive spirometry C. difficile colitis, treated Treated with oral Flagyl for total of 14 days Repeat C.diff test 09/01 negative. 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 Hemoglobin stable. s/p multiple transfusion, S/p EGD 07/29/16, showed single non bleeding ulcer 3-7 mm in size gastric antrum. Continue Protonix. Thrombocytopenia: Acutely worse at 67-->55 from 91 one month prior. Stable at 59 today. 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 s/p transfusion prior to surgery Monitor CBC qod. Liver cirrhosis, Hepatic encephalopathy with hyperammonemia. Ammonia 45 on . Lactulose discontinued Ammonia level 08/27 improved to 40. Continue Rifaximin Hypertension, stable Continue propranolol and Aldactone. Numbness bilateral feet: H/o alcohol abuse. -B12 was 1449 on 07/27. Folate was normal. -RPR nonreactive. -TSH mildly elevated at 5.080. Free T3 normal and Free T4 1.47, relatively normal. -S/p Magnesium repletion. -Thiamine level at the lower limit of normal. -Continue Gabapentin 300 mg bid. -MRI lumbar spine indicates normal conus, mild disc bulge at L4/L5 with moderate disc bulge at L5-S1 no etiology of bilateral lower extremity numbness Paronychia: Patient has skin changes around the nails to both feet and a few fingers that appears as chronic paronychia. No acute abscess is evident, but colleague noted some exudate and possible acute infection of great toes. Patient admits to picking under and biting her fingernails as well as having ingrown toenails. -S/p soaking in warm water with Epsom salt. -S/p triamcinolone acetonide 0.1% ointment. -Patient advised against biting her nails due to risk of infection. -Podiatry evaluated the patient on 09/09 and clipped all nails. Orders for daily mupirocin/bandaid to R hallux and 2nd toenail. States can f/u in office. Signed off. H/o ulcer and gastric varices: Continue Carafate. Nausea/fatigue: Patient has no upper respiratory symptoms so unlikely to be influenza. Vitals good. -No elevation in WBC count. -Discussed with Dr. Matthews. Vitamin D and zinc levels ordered. VIMAL: BUN/Cr improving 23/1.4-->17/1.2. Appears to have CKD on record review, although stage fluctuates. -Continue IV NS. -Repeat BMP in the am. -Avoid nephrotoxins. DVT prophylaxis: SCDs, pharmacological prophylaxis contraindicated. Discharge Planning project manager entertainment and media following. Will require clearance by orthopedics. Alix Johnson Sep 23, 2016 09:00
[2016-09-23] MEDS: PROPRANOLOL HCL 20 MG TAB PO SCH ×3 (09:37→18:26)
[2016-09-23] MEDS: GABAPENTIN 300 MG CAP PO SCH ×2 (09:38→22:02)
[2016-09-23] MEDS: PANTOPRAZOLE SOD 40 MG DELAYED RELEASE TAB PO SCH ×2 (09:38→22:02)
[2016-09-23] MEDS: RIFAXIMIN 550 MG TAB PO SCH ×2 (09:38→22:02)
[2016-09-23] MEDS: POTASSIUM CHLORIDE 20 MEQ CONTROLLED RELEASE TAB PO SCH (09:38)
[2016-09-23] MEDS: SPIRONOLACTONE 25 MG TAB PO SCH ×2 (09:38→22:02)
[2016-09-23] MEDS: CALCIUM/VITAMIN D 250 MG/125 U TAB PO SCH ×3 (09:38→18:26)
[2016-09-23 10:27] LABS: POTASSIUM 4.2 MEQ/L (3.5-5.1)
[2016-09-23 10:30] LABS: BICARBONATE 22.6 MEQ/L (21.0-32.0)
[2016-09-23] MEDS: SODIUM CHLOR 0.9% 1000 ML INJ 1,000 ML IV SCH ×2 (12:27→23:35)
[2016-09-23] MEDS: ACETAMINOPHEN 325 MG TAB PO PRN (12:31)
[2016-09-23 20:00] VITALS: BP 118/60; PULSE 60; RESP 20; TEMP 96.5; O2SAT 96
[2016-09-23] MEDS: traZODone HCL 50 MG TAB PO SCH (22:02)
[2016-09-24] MEDS: SUCRALFATE 1 GM/10 ML CUP PO SCH ×4 (05:57→20:49)
[2016-09-24 06:34] LABS: POTASSIUM 4.4 MEQ/L (3.5-5.1)
[2016-09-24 06:38] LABS: BICARBONATE 22.9 MEQ/L (21.0-32.0)
[2016-09-24 08:00] VITALS: BP 132/81; PULSE 77; RESP 16; TEMP 98.2; O2SAT 98
[2016-09-24] MEDS: RIFAXIMIN 550 MG TAB PO SCH ×2 (09:45→20:49)
[2016-09-24] MEDS: GABAPENTIN 300 MG CAP PO SCH ×2 (09:45→20:50)
[2016-09-24] MEDS: POTASSIUM CHLORIDE 20 MEQ CONTROLLED RELEASE TAB PO SCH (09:45)
[2016-09-24] MEDS: SPIRONOLACTONE 25 MG TAB PO SCH ×2 (09:46→20:50)
[2016-09-24] MEDS: MUPIROCIN 2% OINT 22 GM TUBE TOPICAL SCH ×2 (09:46→20:52)
[2016-09-24] MEDS: CALCIUM/VITAMIN D 250 MG/125 U TAB PO SCH ×2 (09:46→13:41)
[2016-09-24] MEDS: PANTOPRAZOLE SOD 40 MG DELAYED RELEASE TAB PO SCH ×2 (09:46→20:49)
[2016-09-24] MEDS: PROPRANOLOL HCL 20 MG TAB PO SCH ×3 (09:46→18:14)
--- NOTE | 2016-09-24 12:14 | HHI.PR ---
Subjective Remarks Follow-up s/p ORIF RLE as well as fatigue, nausea, and thrombocytopenia. Patient admits to low-grade fever, but her temperature has been completely normal, 98.2 this morning. Still nauseous. AEROPHYSICS ENGINEER states patient does not eat much; patient states she does not have much of an appetite. Patient denies any cough. Denies any vomiting or diarrhea. Denies any melena or hematochezia. Objective Vitals Vital Signs Date Time Temp Pulse Resp B/P Pulse Ox O2 Delivery O2 Flow Rate FiO2 09/24/16 08:00 98.2 77 16 132/81 98 09/24/16 06:57 18 09/23/16 20:00 96.5 60 20 118/60 96 09/23/16 13:31 16 I/O 09/23/16 09/23/16 09/23/16 09/24/16 09/24/16 09/24/16 07:00 15:00 23:00 07:00 15:00 23:00 Intake Total 1033 ml 240 ml 1016 ml 1075 ml Balance 1033 ml 240 ml 1016 ml 1075 ml Intake Oral 240 ml 240 ml 420 ml IV Total 793 ml 1016 ml 655 ml # Voids 2 2 2 # Bowel Movements 0 0 1 Result Diagram: 09/23/16 0420 09/24/16 0608 Objective Remarks GENERAL: Pleasant well-nourished, well-developed patient in no apparent distress walking with walker from bathroom to side of bed. CARDIOVASCULAR: Regular rate and rhythm. RESPIRATORY: No accessory muscle use. RR normal. GASTROINTESTINAL: Abdomen soft, nontender, nondistended. MUSCULOSKELETAL: Splint to right lower extremity. Moves toes of R foot. NEUROLOGICAL: Awake and alert. Normal speech. PSYCHIATRIC: Appropriate mood and affect; insight and judgment normal. Procedures 08/03: Removal broken hardware from right tibia and fibula, open treatment of right tibia and fibula nonunion, and iliac crest bone grafting with stem cell graft. Urinary Catheter: No Vascular Central Line Catheter: No A/P Problem List: (1) Cirrhosis of liver ICD Code: K74.60 Status: Chronic (2) Fracture of distal end of tibia with fibula ICD Code: S82.309A Status: Chronic (3) Thrombocytopenia ICD Code: D69.6 Status: Acute Assessment and Plan Right tibia-fibula nonunion, Orthopedics managing, last evaluated patient on 09/09/16. Ortho to reevaluate and x-ray leg next week. Status post ORIF revision 08/03/[address] Camacho. Nonweightbearing, will need rehabilitation. Pain control: Avoid acetaminophen use. Oxycodone 5 mg every 8 hours as needed for pain. COPD with shortness of breath and dyspnea, improved Chest x-ray did not indicate any acute abnormality Patient with good O2 saturations Continue incentive spirometry C. difficile colitis, treated Treated with oral Flagyl for total of 14 days Repeat C.diff test 09/01 negative. 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 Hemoglobin stable. s/p multiple transfusion, S/p EGD 07/29/16, showed single non bleeding ulcer 3-7 mm in size gastric antrum. Continue Protonix. Thrombocytopenia: Acutely worse at 67-->55 from 91 one month prior. Stable at 59 on 09/23. 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 s/p transfusion prior to surgery Monitor CBC qod. Liver cirrhosis, Hepatic encephalopathy with hyperammonemia. Ammonia 45 on . Lactulose discontinued Ammonia level 08/27 improved to 40. Continue Rifaximin Hypertension, stable Continue propranolol and Aldactone. Numbness bilateral feet: Continued. H/o alcohol abuse. -B12 was 1449 on 07/27. Folate was normal. -RPR nonreactive. -TSH mildly elevated at 5.080. Free T3 normal and Free T4 1.47, relatively normal. -S/p Magnesium repletion. -Thiamine level at the lower limit of normal. -Continue Gabapentin 300 mg bid. -MRI lumbar spine indicates normal conus, mild disc bulge at L4/L5 with moderate disc bulge at L5-S1 no etiology of bilateral lower extremity numbness Paronychia: Patient has skin changes around the nails to both feet and a few fingers that appears as chronic paronychia. No acute abscess is evident, but colleague noted some exudate and possible acute infection of great toes. Patient admits to picking under and biting her fingernails as well as having ingrown toenails. -S/p soaking in warm water with Epsom salt. -S/p triamcinolone acetonide 0.1% ointment. -Patient advised against biting her nails due to risk of infection. -Podiatry evaluated the patient on 09/09 and clipped all nails. Orders for daily mupirocin/bandaid to R hallux and 2nd toenail. States can f/u in office. Signed off. H/o ulcer and gastric varices: Continue Carafate. Nausea/fatigue: Vitals good. -No elevation in WBC count. -Discussed with Dr. Matthews. Zinc level pending. VIMAL: BUN/Cr improved, now wnl at 14/0.96. -Discontinue IVF. -Avoid nephrotoxins. -Patient is advised against drinking soda and advised to orally hydrate with water. Mild Vitamin D deficiency: 25 OH-D level 28.6. -Patient is currently on Os-Jesus-D 250/125, but will discontinue and start vitamin D3 600 units daily. Patient's calcium is 8.7; will continue calcium carbonate as patient has fracture and is post menopausal. DVT prophylaxis: SCDs, pharmacological prophylaxis contraindicated. Discharge Planning network operations manager following. Will require clearance by orthopedics for discharge. 09/24/16: Jorgito Gill, trimming caser, inquired about orthopedic clearance and states patient does have somewhere to go on discharge. I spoke with Miguel Herrera, orthopedic PA, who states he will come next week to see patient. He wants to ensure patient has safe reliable place to go as patient has h/o alcohol abuse and there is risk for reinjury of leg as patient already did not heal properly the first time around. Alix Johnson Sep 24, 2016 12:14
[2016-09-24] MEDS ORDERED: PILL SPLITTER OTHER PRN (17:00)
[2016-09-24 20:00] VITALS: BP 114/74; PULSE 63; RESP 16; TEMP 97.1; O2SAT 98
[2016-09-24] MEDS: CALCIUM CARBONATE 1.25 GM (CA 500 MG) TAB PO SCH (20:49)
[2016-09-24] MEDS: traZODone HCL 50 MG TAB PO SCH (21:00)
[2016-09-25] MEDS: SUCRALFATE 1 GM/10 ML CUP PO SCH ×4 (06:12→21:07)
[2016-09-25 08:00] VITALS: BP 125/74; PULSE 68; RESP 16; TEMP 98.3; O2SAT 96
[2016-09-25] MEDS: RIFAXIMIN 550 MG TAB PO SCH ×2 (08:37→21:07)
[2016-09-25] MEDS: POTASSIUM CHLORIDE 20 MEQ CONTROLLED RELEASE TAB PO SCH (08:37)
[2016-09-25] MEDS: CALCIUM CARBONATE 1.25 GM (CA 500 MG) TAB PO SCH ×2 (08:37→21:08)
[2016-09-25] MEDS: GABAPENTIN 300 MG CAP PO SCH ×2 (08:37→21:07)
[2016-09-25] MEDS: SPIRONOLACTONE 25 MG TAB PO SCH ×2 (08:38→21:08)
[2016-09-25] MEDS: MUPIROCIN 2% OINT 22 GM TUBE TOPICAL SCH ×2 (08:38→21:08)
[2016-09-25] MEDS: PANTOPRAZOLE SOD 40 MG DELAYED RELEASE TAB PO SCH ×2 (08:38→21:08)
[2016-09-25] MEDS: CHOLECALCIFEROL (VIT D3) 400 UNIT TAB PO SCH (08:38)
[2016-09-25] MEDS: PROPRANOLOL HCL 20 MG TAB PO SCH ×3 (08:38→16:59)
[2016-09-25 09:18] LABS: HEMATOCRIT 29.1 % (35.0-46.0); MEAN CELL VOLUME 91.5 FL (80.0-100.0); MEAN CORPUSCULAR HEMOGLOBIN 30.5 PG (27.0-34.0); MEAN CORPUSCULAR HGB CONC 33.4 % (32.0-36.0); PLATELET COUNT 48 TH/MM3 (150-450); RED BLOOD COUNT 3.18 MIL/MM3 (4.00-5.30); RED CELL DISTRIBUTION WIDTH 15.3 % (11.6-17.2); WHITE BLOOD COUNT 2.6 TH/MM3 (4.0-11.0)
[2016-09-25 09:56] LABS: REVIEW FLAG FINAL
--- NOTE | 2016-09-25 09:58 | HHI.PR ---
Subjective Remarks Status post ORIF right lower extremity. Follow-up for fatigue and nausea. Patient states she feels less tired today and she has not had any nausea this morning. Her appetite is improved and the nurse states she ate better yesterday. Objective Vitals Vital Signs Date Time Temp Pulse Resp B/P Pulse Ox O2 Delivery O2 Flow Rate FiO2 09/25/16 08:00 98.3 68 16 125/74 96 09/25/16 07:45 14 09/24/16 20:00 97.1 63 16 114/74 98 I/O 09/24/16 09/24/16 09/24/16 09/25/16 09/25/16 09/25/16 07:00 15:00 23:00 07:00 15:00 23:00 Intake Total 1075 ml 360 ml 480 ml 240 ml Balance 1075 ml 360 ml 480 ml 240 ml Intake Oral 420 ml 360 ml 480 ml 240 ml IV Total 655 ml # Voids 2 2 2 2 # Bowel Movements 1 1 0 0 Result Diagram: 09/25/16 0830 09/24/16 0608 Objective Remarks GENERAL: Pleasant well-nourished, well-developed patient in no apparent distress. CARDIOVASCULAR: Regular rate and rhythm. RESPIRATORY: No accessory muscle use. CTAB. GASTROINTESTINAL: Abdomen soft, nontender, nondistended. MUSCULOSKELETAL: Splint to right lower extremity. Moves toes of R foot. NEUROLOGICAL: Awake and alert. Normal speech. PSYCHIATRIC: Appropriate mood and affect; insight and judgment normal. Procedures 08/03: Removal broken hardware from right tibia and fibula, open treatment of right tibia and fibula nonunion, and iliac crest bone grafting with stem cell graft. Urinary Catheter: No Vascular Central Line Catheter: No A/P Problem List: (1) Cirrhosis of liver ICD Code: K74.60 Status: Chronic (2) Fracture of distal end of tibia with fibula ICD Code: S82.309A Status: Chronic (3) Thrombocytopenia ICD Code: D69.6 Status: Acute Assessment and Plan Right tibia-fibula nonunion, Orthopedics managing, last evaluated patient on 09/09/16. Ortho to reevaluate and x-ray leg next week. Status post ORIF revision 08/03/[address] Camacho. Nonweightbearing, will need rehabilitation. Pain control: Avoid acetaminophen use. Oxycodone 5 mg every 8 hours as needed for pain. COPD with shortness of breath and dyspnea, improved Chest x-ray did not indicate any acute abnormality Patient with good O2 saturations Continue incentive spirometry C. difficile colitis, treated Treated with oral Flagyl for total of 14 days Repeat C.diff test 09/01 negative. 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 Hemoglobin stable at 9.7 today. s/p multiple transfusion, S/p EGD 07/29/16, showed single non bleeding ulcer 3-7 mm in size gastric antrum. Continue Protonix. Thrombocytopenia: Acutely worse with platelet count of 48 today from 91 one month prior, but patient is clinically improved. 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 s/p transfusion prior to surgery Discussed with Dr. Matthews. Continue to monitor CBC qod. If platelets drop further, we will reconsult hematology. Liver cirrhosis, Hepatic encephalopathy with hyperammonemia. Ammonia 45 on . Lactulose discontinued Ammonia level 08/27 improved to 40. Continue Rifaximin Hypertension, stable Continue propranolol and Aldactone. Numbness bilateral feet: Continued. H/o alcohol abuse. -B12 was 1449 on 07/27. Folate was normal. -RPR nonreactive. -TSH mildly elevated at 5.080. Free T3 normal and Free T4 1.47, relatively normal. -S/p Magnesium repletion. -Thiamine level at the lower limit of normal. -Continue Gabapentin 300 mg bid. -MRI lumbar spine indicates normal conus, mild disc bulge at L4/L5 with moderate disc bulge at L5-S1 no etiology of bilateral lower extremity numbness Paronychia: Patient has skin changes around the nails to both feet and a few fingers that appears as chronic paronychia. No acute abscess is evident, but colleague noted some exudate and possible acute infection of great toes. Patient admits to picking under and biting her fingernails as well as having ingrown toenails. -S/p soaking in warm water with Epsom salt. -S/p triamcinolone acetonide 0.1% ointment. -Patient advised against biting her nails due to risk of infection. -Podiatry evaluated the patient on 09/09 and clipped all nails. Orders for daily mupirocin/bandaid to R hallux and 2nd toenail. States can f/u in office. Signed off. H/o ulcer and gastric varices: Continue Carafate. Nausea/fatigue: Improved. Vitals good. -No elevation in WBC count. -Zinc level pending. VIMAL: Resolved s/p IVF. -Avoid nephrotoxins. -Patient is advised against drinking soda and advised to orally hydrate with water. Mild Vitamin D deficiency: 25 OH-D level 28.6. -Continue Vitamin D3 600 units daily. Continue calcium carbonate 500 mg q12h as patient has fracture and is post menopausal. DVT prophylaxis: SCDs, pharmacological prophylaxis contraindicated. Discharge Planning consumer insight manager following. Will require clearance by orthopedics for discharge. 09/24/16: Jorgito Gill, rn field case manager, inquired about orthopedic clearance and states patient does have somewhere to go on discharge. I spoke with Miguel Herrera, orthopedic PA, who states he will come next week to see patient. He wants to ensure patient has safe reliable place to go as patient has h/o alcohol abuse and there is risk for reinjury of leg as patient already did not heal properly the first time around. Alix Johnson Sep 25, 2016 09:58
[2016-09-25] MEDS: traZODone HCL 50 MG TAB PO SCH (21:26)
[2016-09-25 21:35] VITALS: BP 124/71; PULSE 62; RESP 18; TEMP 98.2; O2SAT 98
[2016-09-26] MEDS: SUCRALFATE 1 GM/10 ML CUP PO SCH ×4 (06:42→20:22)
[2016-09-26 08:00] VITALS: BP 114/72; PULSE 63; RESP 20; TEMP 97.9; O2SAT 96
[2016-09-26] MEDS: GABAPENTIN 300 MG CAP PO SCH ×2 (09:16→20:22)
[2016-09-26] MEDS: RIFAXIMIN 550 MG TAB PO SCH ×2 (09:16→20:22)
[2016-09-26] MEDS: SPIRONOLACTONE 25 MG TAB PO SCH ×2 (09:16→20:22)
[2016-09-26] MEDS: POTASSIUM CHLORIDE 20 MEQ CONTROLLED RELEASE TAB PO SCH (09:16)
[2016-09-26] MEDS: CHOLECALCIFEROL (VIT D3) 400 UNIT TAB PO SCH (09:16)
[2016-09-26] MEDS: PANTOPRAZOLE SOD 40 MG DELAYED RELEASE TAB PO SCH ×2 (09:16→20:22)
[2016-09-26] MEDS: PROPRANOLOL HCL 20 MG TAB PO SCH ×3 (09:16→17:41)
[2016-09-26] MEDS: CALCIUM CARBONATE 1.25 GM (CA 500 MG) TAB PO SCH ×2 (09:16→20:22)
[2016-09-26] MEDS: MUPIROCIN 2% OINT 22 GM TUBE TOPICAL SCH ×2 (09:17→20:25)
[2016-09-26] MEDS: ACETAMINOPHEN 325 MG TAB PO PRN (12:24)
--- NOTE | 2016-09-26 17:25 | HHI.PR ---
Subjective Remarks Patient seen and follow-up for right lower extremity orthopedic issues. Reports feeling much better today. Objective Vitals Vital Signs Date Time Temp Pulse Resp B/P Pulse Ox O2 Delivery O2 Flow Rate FiO2 09/26/16 15:37 16 09/26/16 13:24 16 09/26/16 08:00 97.9 63 20 114/72 96 09/25/16 21:35 98.2 62 18 124/71 98 I/O 09/25/16 09/25/16 09/25/16 09/26/16 09/26/16 09/26/16 07:00 15:00 23:00 07:00 15:00 23:00 Intake Total 240 ml 600 ml 60 ml 480 ml Balance 240 ml 600 ml 60 ml 480 ml Intake Oral 240 ml 600 ml 60 ml 480 ml # Voids 2 4 3 2 2 2 # Bowel Movements 0 0 0 0 1 Result Diagram: 09/25/16 0830 09/24/16 0608 Objective Remarks GENERAL: This is a well-nourished, well-developed patient, in no apparent distress. CARDIOVASCULAR: Regular rate and rhythm without murmurs, gallops, or rubs. RESPIRATORY: Clear to auscultation. Breath sounds equal bilaterally. No wheezes , rales, or rhonchi. GASTROINTESTINAL: Abdomen soft, non-tender, nondistended. Normal active bowel sounds MUSCULOSKELETAL: Lower extremity casts, Extremities without clubbing, cyanosis, or edema. NEURO: Alert & Oriented x4 to person, place, time, situation. Moves all ext x4 Procedures 08/03: Removal broken hardware from right tibia and fibula, open treatment of right tibia and fibula nonunion, and iliac crest bone grafting with stem cell graft. A/P Problem List: (1) Cirrhosis of liver ICD Code: K74.60 Status: Chronic (2) Fracture of distal end of tibia with fibula ICD Code: S82.309A Status: Chronic (3) Thrombocytopenia ICD Code: D69.6 Status: Acute Assessment and Plan Hospital day #60 patient with orthopedic injuries preventing her a safe discharge along thrombocytopenia to be followed tomorrow. Appears stable without signs of bleeding (history of hepatic cirrhosis) Discharge Planning Patient will need continued physical therapy and is unsafe discharge at this time. Gloria Matthews MD Sep 26, 2016 17:25
[2016-09-26] MEDS: traZODone HCL 50 MG TAB PO SCH (20:22)
[2016-09-26 21:25] VITALS: BP 104/65; PULSE 57; RESP 16; TEMP 98.1; O2SAT 93
[2016-09-27 06:09] LABS: HEMATOCRIT 29.2 % (35.0-46.0); MEAN CELL VOLUME 90.6 FL (80.0-100.0); MEAN CORPUSCULAR HEMOGLOBIN 30.2 PG (27.0-34.0); MEAN CORPUSCULAR HGB CONC 33.3 % (32.0-36.0); PLATELET COUNT 52 TH/MM3 (150-450); RED BLOOD COUNT 3.22 MIL/MM3 (4.00-5.30); RED CELL DISTRIBUTION WIDTH 14.8 % (11.6-17.2); WHITE BLOOD COUNT 2.8 TH/MM3 (4.0-11.0)
[2016-09-27 06:22] LABS: REVIEW FLAG FINAL
[2016-09-27] MEDS: SUCRALFATE 1 GM/10 ML CUP PO SCH ×4 (06:30→21:19)
[2016-09-27 07:15] VITALS: BP 109/68; PULSE 69; RESP 20; TEMP 97; O2SAT 96
[2016-09-27] MEDS: POTASSIUM CHLORIDE 20 MEQ CONTROLLED RELEASE TAB PO SCH (09:24)
[2016-09-27] MEDS: PANTOPRAZOLE SOD 40 MG DELAYED RELEASE TAB PO SCH ×2 (09:25→21:20)
[2016-09-27] MEDS: GABAPENTIN 300 MG CAP PO SCH ×2 (09:25→21:20)
[2016-09-27] MEDS: PROPRANOLOL HCL 20 MG TAB PO SCH ×3 (09:25→17:57)
[2016-09-27] MEDS: RIFAXIMIN 550 MG TAB PO SCH ×2 (09:25→21:20)
[2016-09-27] MEDS: CALCIUM CARBONATE 1.25 GM (CA 500 MG) TAB PO SCH ×2 (09:25→21:20)
[2016-09-27] MEDS: MUPIROCIN 2% OINT 22 GM TUBE TOPICAL SCH (09:25)
[2016-09-27] MEDS: SPIRONOLACTONE 25 MG TAB PO SCH ×2 (09:25→21:00)
[2016-09-27] MEDS: CHOLECALCIFEROL (VIT D3) 400 UNIT TAB PO SCH (09:34)
--- NOTE | 2016-09-27 10:08 | HHI.PR ---
Subjective Remarks Follow-up for fatigue. Patient is less tired. Patient states she has not had nausea for a few days. She denies any diarrhea. Objective Vitals Vital Signs Date Time Temp Pulse Resp B/P Pulse Ox O2 Delivery O2 Flow Rate FiO2 09/27/16 07:31 16 09/27/16 07:15 97.0 69 20 109/68 96 09/26/16 21:25 98.1 57 16 104/65 93 09/26/16 13:24 16 I/O 09/26/16 09/26/16 09/26/16 09/27/16 09/27/16 09/27/16 07:00 15:00 23:00 07:00 15:00 23:00 Intake Total 600 ml Balance 600 ml Intake Oral 600 ml # Voids 2 2 2 2 # Bowel Movements 0 1 Result Diagram: 09/27/16 0525 09/24/16 0608 Objective Remarks GENERAL: Pleasant well-nourished, well-developed patient in no apparent distress. CARDIOVASCULAR: Regular rate and rhythm. RESPIRATORY: No accessory muscle use. CTAB. GASTROINTESTINAL: Abdomen soft, nontender, nondistended. MUSCULOSKELETAL: Splint to right lower extremity. Moves toes of R foot. NEUROLOGICAL: Awake and alert. Normal speech. PSYCHIATRIC: Appropriate mood and affect; insight and judgment normal. Procedures 08/03: Removal broken hardware from right tibia and fibula, open treatment of right tibia and fibula nonunion, and iliac crest bone grafting with stem cell graft. Urinary Catheter: No Vascular Central Line Catheter: No A/P Problem List: (1) Cirrhosis of liver ICD Code: K74.60 Status: Chronic (2) Fracture of distal end of tibia with fibula ICD Code: S82.309A Status: Chronic (3) Thrombocytopenia ICD Code: D69.6 Status: Acute Assessment and Plan Right tibia-fibula nonunion, Orthopedics managing, last evaluated patient on 09/09/16. Ortho to reevaluate and x-ray leg next week. Status post ORIF revision 08/03/[address] Camacho. Nonweightbearing, will need rehabilitation. Pain control: Avoid acetaminophen use. Oxycodone 5 mg every 8 hours as needed for pain changed to every 12 hours prn today. COPD with shortness of breath and dyspnea, improved Chest x-ray did not indicate any acute abnormality Patient with good O2 saturations Continue incentive spirometry C. difficile colitis, treated Treated with oral Flagyl for total of 14 days Repeat C.diff test 09/01 negative. 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 Hemoglobin stable at 9.7 today. s/p multiple transfusion, S/p EGD 07/29/16, showed single non bleeding ulcer 3-7 mm in size gastric antrum. Continue Protonix. Thrombocytopenia: Acutely worse with platelet count of 48 on 09/25 from 91 one month prior, but patient is clinically improved. Platelet count is stable today at 52. 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 s/p transfusion prior to surgery Continue to monitor CBC qod. If platelets drop further, we will reconsult hematology. Liver cirrhosis, Hepatic encephalopathy with hyperammonemia. Ammonia 45 on . Lactulose discontinued Ammonia level 08/27 improved to 40. Continue Rifaximin Hypertension, stable Continue propranolol and Aldactone. Numbness bilateral feet: Continued. H/o alcohol abuse. -B12 was 1449 on 07/27. Folate was normal. -RPR nonreactive. -TSH mildly elevated at 5.080. Free T3 normal and Free T4 1.47, relatively normal. -S/p Magnesium repletion. -Thiamine level at the lower limit of normal. -Continue Gabapentin 300 mg bid. -MRI lumbar spine indicates normal conus, mild disc bulge at L4/L5 with moderate disc bulge at L5-S1 no etiology of bilateral lower extremity numbness Paronychia: Patient has skin changes around the nails to both feet and a few fingers that appears as chronic paronychia. No acute abscess is evident, but colleague noted some exudate and possible acute infection of great toes. Patient admits to picking under and biting her fingernails as well as having ingrown toenails. -S/p soaking in warm water with Epsom salt. -S/p triamcinolone acetonide 0.1% ointment. -Patient advised against biting her nails due to risk of infection. -Podiatry evaluated the patient on 09/09 and clipped all nails. Orders for daily mupirocin/bandaid to R hallux and 2nd toenail. States can f/u in office. Signed off. H/o ulcer and gastric varices: Continue Carafate. Nausea/fatigue: Improved. Vitals good. -No elevation in WBC count. -Zinc level pending. VIMAL: Resolved s/p IVF. -Avoid nephrotoxins. -Patient is advised against drinking soda and advised to orally hydrate with water. Mild Vitamin D deficiency: 25 OH-D level 28.6. -Continue Vitamin D3 600 units daily. Continue calcium carbonate 500 mg q12h as patient has fracture and is post menopausal. DVT prophylaxis: SCDs, pharmacological prophylaxis contraindicated. Discharge Planning canteen manager following. Will require clearance by orthopedics for discharge. 09/24/16: Jorgito Gill, casework supervisor, inquired about orthopedic clearance and states patient does have somewhere to go on discharge. I spoke with Miguel Herrera, orthopedic PA, who states he will come next week to see patient. He wants to ensure patient has safe reliable place to go as patient has h/o alcohol abuse and there is risk for reinjury of leg as patient already did not heal properly the first time around. Alix Johnson Sep 27, 2016 10:08
[2016-09-27] MEDS: ACETAMINOPHEN 325 MG TAB PO PRN (17:57)
[2016-09-27 20:00] VITALS: BP 126/69; PULSE 60; RESP 18; TEMP 98.6; O2SAT 97
[2016-09-27] MEDS: traZODone HCL 50 MG TAB PO SCH (21:20)
[2016-09-28] MEDS: SUCRALFATE 1 GM/10 ML CUP PO SCH ×4 (07:38→20:39)
[2016-09-28 08:00] VITALS: BP 124/80; PULSE 63; RESP 16; TEMP 98.1; O2SAT 96
[2016-09-28] MEDS: CHOLECALCIFEROL (VIT D3) 400 UNIT TAB PO SCH (09:40)
[2016-09-28] MEDS: PANTOPRAZOLE SOD 40 MG DELAYED RELEASE TAB PO SCH ×2 (09:40→20:39)
[2016-09-28] MEDS: RIFAXIMIN 550 MG TAB PO SCH ×2 (09:40→20:39)
[2016-09-28] MEDS: PROPRANOLOL HCL 20 MG TAB PO SCH ×3 (09:41→17:24)
[2016-09-28] MEDS: CALCIUM CARBONATE 1.25 GM (CA 500 MG) TAB PO SCH ×2 (09:41→20:39)
[2016-09-28] MEDS: SPIRONOLACTONE 25 MG TAB PO SCH ×2 (09:41→20:39)
[2016-09-28] MEDS: POTASSIUM CHLORIDE 20 MEQ CONTROLLED RELEASE TAB PO SCH (09:41)
[2016-09-28] MEDS: GABAPENTIN 300 MG CAP PO SCH ×2 (09:41→20:39)
[2016-09-28] MEDS: ACETAMINOPHEN 325 MG TAB PO PRN ×2 (09:41→20:40)
[2016-09-28] MEDS: MUPIROCIN 2% OINT 22 GM TUBE TOPICAL SCH ×2 (09:42→20:43)
--- NOTE | 2016-09-28 10:29 | HHI.PR ---
Subjective Remarks Patient seen and examined today. Patient denies any new complaints. No change in clinical status. Objective Vitals Vital Signs Date Time Temp Pulse Resp B/P Pulse Ox O2 Delivery O2 Flow Rate FiO2 09/28/16 08:00 98.1 63 16 124/80 96 09/27/16 20:00 98.6 60 18 126/69 97 09/27/16 15:24 16 I/O 09/27/16 09/27/16 09/27/16 09/28/16 09/28/16 09/28/16 07:00 15:00 23:00 07:00 15:00 23:00 Intake Total 700 ml 420 ml 200 ml Balance 700 ml 420 ml 200 ml Intake Oral 700 ml 420 ml 200 ml # Voids 2 4 2 3 # Bowel Movements 1 Result Diagram: 09/27/16 0525 09/24/16 0608 Objective Remarks GENERAL: Well-developed, well-nourished, in no acute distress. alert and orientated HEENT: Head is normocephalic without any lesions or masses noted. Facial features are symmetric. Eyes: Extraocular muscles are intact. Conjunctivae were clear NECK: Trachea midline no deviation., CARDIAC: Regular rhythm, regular rate. S1/S2 are heard. No murmurs gallops or rubs. LUNGS: Clear to auscultation bilaterally. No wheeze, rhonchi or rales. No use of accessory muscles on inspiration or expiration. ABDOMEN: Soft, nontender. Nondistended. Bowel sounds heard in all 4 quadrants. No organomegaly or masses. Negative rebound, negative guarding EXTREMITIES: No edema, pulses are equal bilaterally. No cyanosis or clubbing. Right lower extremity in splint NEUROLOGY: Mood and affect appear appropriate. Cranial nerves II through XII grossly intact. Moving all extremities, speech is clear RIGHT LOWER EXTREMITY: Right great toe does have medial nail abnormality with erythema, edema, exudate. LEFT LOWER EXTREMITY: Left great toe also has nail changes medially and laterally indicating possible paronychia and redness, infection Procedures 08/03: Removal broken hardware from right tibia and fibula, open treatment of right tibia and fibula nonunion, and iliac crest bone grafting with stem cell graft. Urinary Catheter: No Vascular Central Line Catheter: No A/P Assessment and Plan Right tibia-fibula nonunion, Orthopedic managing, Status post ORIF revision 08/03/[address] Camacho. Last evaluated 09/09/16 Nonweightbearing, maintain splint for 3 months from surgery, 08/03/16 Pain control OxyContin 5 mg every 12 hours as needed for pain, last changed 09/27/16 Bilateral great toe infection, paronychia Consulted podiatry who indicated and wrote orders for daily Bactroban cream and Band-Aid. Recommended outpatient follow-up Numbness bilateral feet: Persistent Patient with a workup with RPR, thyroid functions, BMP which appear to be relatively unremarkable Patient being treated for hypomagnesemia, without improvement of her numbness MRI lumbar spine indicates normal conus, mild disc bulge at L4/L5 with moderate disc bulge at L5-S1 no etiology of bilateral extremity numbness Continue Gabapentin 300 mg bid. COPD with shortness of breath and dyspnea, improved Chest x-ray did not indicate any acute abnormality Patient with good O2 saturations Continue incentive spirometry C. difficile colitis, treated Treated with oral Flagyl for total of 14 days Continue monitor stool output to see if repeat culture needs to be performed Repeat C. 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 Hemoglobin stable s/p multiple transfusion, S/p EGD 07/29/16, showed single non bleeding ulcer 3-7 mm in size gastric antrum. 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 s/p transfusion prior to surgery Liver cirrhosis, Hepatic encephalopathy with hyperammonemia, resolved Lactulose discontinued Continue rifaximin Hypertension, stable Continue propranolol and Aldactone. DVT prophylaxis: SCDs, pharmacological prophylaxis contraindicated Discharge Planning Case management in charge of discharge planning 09/21/16 1520 FOLLOWING FOR ORTHO LEAD WITH WEIGHT BEARING AND FRACTURE BOOT APPLICATION IN [facility] CAN D/C HOME WITH OUT PATIENT F/UAND THERAPY ANSHU DEL ROSARIO SECTION CHIEF/CM/CHARGE Isaac Leal Sep 28, 2016 10:29
--- NOTE | 2016-09-28 17:42 | RADHPO ---
EXAM DATE/TIME: 09/28/2016 15:31 [facility] COMPARISON: ANKLE RIGHT COMPLETE ([id number]), September 09, 2016, 19:28. INDICATIONS : Evaluate right ankle status post op. MEDICAL HISTORY : None. SURGICAL HISTORY : ORIF right ankle. Revision of right ankle surgery. ENCOUNTER: Subsequent ACUITY: 1 month PAIN SCORE: 0/10 LOCATION: Right ankle. FINDINGS: The patient is in a cast. There is a long plate along the medial aspect of the mid and distal tibia. There is also a shorter plate seen along the lateral aspect of the distal fibula. The re does appear to be a single broken screw seen at the distal tibia. There are multiple screws in th is region. This appears unchanged from the prior exam. The ankle is normally aligned. CONCLUSION: Orthopedic hardware in place for distal tibia and fibula fractures. Little change is seen when compared to the prior exam. Tony Abrams MD on September 28, 2016 at 17:29 Board Certified Radiologist. This report was verified electronically.
[2016-09-28 20:00] VITALS: BP 111/73; PULSE 64; RESP 15; TEMP 97.5; O2SAT 98
[2016-09-28] MEDS: traZODone HCL 50 MG TAB PO SCH (20:39)
[2016-09-29 05:22] LABS: HEMATOCRIT 30.5 % (35.0-46.0); MEAN CELL VOLUME 91.8 FL (80.0-100.0); MEAN CORPUSCULAR HEMOGLOBIN 29.9 PG (27.0-34.0); MEAN CORPUSCULAR HGB CONC 32.6 % (32.0-36.0); PLATELET COUNT 60 TH/MM3 (150-450); RED BLOOD COUNT 3.32 MIL/MM3 (4.00-5.30); RED CELL DISTRIBUTION WIDTH 15.5 % (11.6-17.2); WHITE BLOOD COUNT 3.6 TH/MM3 (4.0-11.0)
[2016-09-29 05:24] LABS: REVIEW FLAG FINAL
[2016-09-29] MEDS: SUCRALFATE 1 GM/10 ML CUP PO SCH ×4 (05:45→20:26)
[2016-09-29 08:00] VITALS: BP 123/72; PULSE 67; RESP 16; TEMP 98.6; O2SAT 96
[2016-09-29] MEDS: PROPRANOLOL HCL 20 MG TAB PO SCH ×3 (09:30→17:52)
[2016-09-29] MEDS: CALCIUM CARBONATE 1.25 GM (CA 500 MG) TAB PO SCH ×2 (09:30→20:26)
[2016-09-29] MEDS: CHOLECALCIFEROL (VIT D3) 400 UNIT TAB PO SCH (09:30)
[2016-09-29] MEDS: PANTOPRAZOLE SOD 40 MG DELAYED RELEASE TAB PO SCH ×2 (09:30→20:26)
[2016-09-29] MEDS: RIFAXIMIN 550 MG TAB PO SCH ×2 (09:30→20:26)
[2016-09-29] MEDS: POTASSIUM CHLORIDE 20 MEQ CONTROLLED RELEASE TAB PO SCH (09:30)
[2016-09-29] MEDS: GABAPENTIN 300 MG CAP PO SCH ×2 (09:30→20:26)
[2016-09-29] MEDS: SPIRONOLACTONE 25 MG TAB PO SCH ×2 (09:30→20:26)
[2016-09-29] MEDS: MUPIROCIN 2% OINT 22 GM TUBE TOPICAL SCH ×2 (09:31→20:28)
--- NOTE | 2016-09-29 09:48 | HHI.PR ---
Subjective Remarks Patient seen and examined today. Patient denies any new complaints. No change in clinical status. Awaiting case management discharge planning Objective Vitals Vital Signs Date Time Temp Pulse Resp B/P Pulse Ox O2 Delivery O2 Flow Rate FiO2 09/29/16 08:00 98.6 67 16 123/72 96 09/28/16 21:45 20 09/28/16 20:00 97.5 64 15 111/73 98 I/O 09/28/16 09/28/16 09/28/16 09/29/16 09/29/16 09/29/16 07:00 15:00 23:00 07:00 15:00 23:00 Intake Total 200 ml 240 ml 480 ml 480 ml Balance 200 ml 240 ml 480 ml 480 ml Intake Oral 200 ml 240 ml 480 ml 480 ml # Voids 3 2 2 2 # Bowel Movements 2 0 0 Result Diagram: 09/29/16 0440 Objective Remarks GENERAL: Well-developed, well-nourished, in no acute distress. alert and orientated HEENT: Head is normocephalic without any lesions or masses noted. Facial features are symmetric. Eyes: Extraocular muscles are intact. Conjunctivae were clear NECK: Trachea midline no deviation., CARDIAC: Regular rhythm, regular rate. S1/S2 are heard. No murmurs gallops or rubs. LUNGS: Clear to auscultation bilaterally. No wheeze, rhonchi or rales. No use of accessory muscles on inspiration or expiration. ABDOMEN: Soft, nontender. Nondistended. Bowel sounds heard in all 4 quadrants. No organomegaly or masses. Negative rebound, negative guarding EXTREMITIES: No edema, pulses are equal bilaterally. No cyanosis or clubbing. Right lower extremity in splint NEUROLOGY: Mood and affect appear appropriate. Cranial nerves II through XII grossly intact. Moving all extremities, speech is clear RIGHT LOWER EXTREMITY: Right great toe does have medial nail abnormality with erythema, edema, exudate. LEFT LOWER EXTREMITY: Left great toe also has nail changes medially and laterally indicating possible paronychia and redness, infection Procedures 08/03: Removal broken hardware from right tibia and fibula, open treatment of right tibia and fibula nonunion, and iliac crest bone grafting with stem cell graft. Urinary Catheter: No Vascular Central Line Catheter: No A/P Assessment and Plan Right tibia-fibula nonunion, Orthopedic managing, Status post ORIF revision 08/03/[address] Camacho. Last evaluated 09/09/16 Nonweightbearing, maintain splint for 3 months from surgery, 08/03/16 Pain control OxyContin 5 mg every 12 hours as needed for pain, last changed 09/27/16 Bilateral great toe infection, paronychia Consulted podiatry who indicated and wrote orders for daily Bactroban cream and Band-Aid. Recommended outpatient follow-up Numbness bilateral feet: Persistent Patient with a workup with RPR, thyroid functions, BMP which appear to be relatively unremarkable Patient being treated for hypomagnesemia, without improvement of her numbness MRI lumbar spine indicates normal conus, mild disc bulge at L4/L5 with moderate disc bulge at L5-S1 no etiology of bilateral extremity numbness Continue Gabapentin 300 mg bid. COPD with shortness of breath and dyspnea, improved Chest x-ray did not indicate any acute abnormality Patient with good O2 saturations Continue incentive spirometry C. difficile colitis, treated Treated with oral Flagyl for total of 14 days Continue monitor stool output to see if repeat culture needs to be performed Repeat C. 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 Hemoglobin stable s/p multiple transfusion, S/p EGD 07/29/16, showed single non bleeding ulcer 3-7 mm in size gastric antrum. 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 s/p transfusion prior to surgery Liver cirrhosis, Hepatic encephalopathy with hyperammonemia, resolved Lactulose discontinued Continue rifaximin Hypertension, stable Continue propranolol and Aldactone. DVT prophylaxis: SCDs, pharmacological prophylaxis contraindicated Discharge Planning Case management for discharge planning Isaac Leal Sep 29, 2016 09:48
[2016-09-29] MEDS: ACETAMINOPHEN 325 MG TAB PO PRN ×2 (12:09→21:53)
--- NOTE | 2016-09-29 12:42 | PD.ORT.PN ---
Subjective Subjective Remarks s/p ORIF right distal tibia doing well. out of bed with walker. no complaints. Objective Vitals Vital Signs Date Time Temp Pulse Resp B/P Pulse Ox O2 Delivery O2 Flow Rate FiO2 09/29/16 08:00 98.6 67 16 123/72 96 09/28/16 21:45 20 09/28/16 20:00 97.5 64 15 111/73 98 I/O 09/28/16 09/28/16 09/28/16 09/29/16 09/29/16 09/29/16 07:00 15:00 23:00 07:00 15:00 23:00 Intake Total 200 ml 240 ml 480 ml 480 ml Balance 200 ml 240 ml 480 ml 480 ml Intake Oral 200 ml 240 ml 480 ml 480 ml # Voids 3 2 2 2 # Bowel Movements 2 0 0 Result Diagram: 09/29/16 0440 Imaging Last 72 hours Impressions Ankle X-Ray 08/03/16 0000 Signed Impressions: Service Date/Time: Wednesday, August 03, 2016 16:54 - CONCLUSION: Status post ORIF of distal right tibial and fibular fractures resulting in satisfactory anatomic alignment. Edis Plascencia MD Objective Remarks Right lower extremity: Iliac crest bone graft site clean and dry. healed well. no drainage. short leg splint intact. Neurovascularly intact distally Assessment & Plan Assessment and Plan 1) Right Distal Tibia nonunion with removal of hardware, open reduction internal fixation, stem cells and iliac crest bone graft - 08/03/16 strict NWB on RLE - 3 months from surgery Dc splint today orthotech to place in fracture boot Rafa Valencia Sep 29, 2016 12:41
[2016-09-29 20:00] VITALS: BP 112/73; PULSE 61; RESP 20; TEMP 98.2; O2SAT 97
[2016-09-29] MEDS: traZODone HCL 50 MG TAB PO SCH (20:26)
[2016-09-30] MEDS: SUCRALFATE 1 GM/10 ML CUP PO SCH ×4 (06:03→20:48)
[2016-09-30 08:00] VITALS: BP 120/65; PULSE 63; RESP 16; TEMP 98.7; O2SAT 96
[2016-09-30] MEDS: SPIRONOLACTONE 25 MG TAB PO SCH ×2 (08:43→20:48)
[2016-09-30] MEDS: CHOLECALCIFEROL (VIT D3) 400 UNIT TAB PO SCH (08:43)
[2016-09-30] MEDS: RIFAXIMIN 550 MG TAB PO SCH ×2 (08:43→20:48)
[2016-09-30] MEDS: POTASSIUM CHLORIDE 20 MEQ CONTROLLED RELEASE TAB PO SCH (08:43)
[2016-09-30] MEDS: GABAPENTIN 300 MG CAP PO SCH ×2 (08:43→20:48)
[2016-09-30] MEDS: PANTOPRAZOLE SOD 40 MG DELAYED RELEASE TAB PO SCH ×2 (08:43→20:48)
[2016-09-30] MEDS: PROPRANOLOL HCL 20 MG TAB PO SCH ×3 (08:43→18:10)
[2016-09-30] MEDS: CALCIUM CARBONATE 1.25 GM (CA 500 MG) TAB PO SCH ×2 (08:43→20:47)
[2016-09-30] MEDS: MUPIROCIN 2% OINT 22 GM TUBE TOPICAL SCH ×2 (08:44→20:52)
--- NOTE | 2016-09-30 10:42 | HHI.PR ---
Subjective Remarks Patient seen and examined today. Patient denies any new complaints. No change in clinical status. Awaiting case management for discharge planning Objective Vitals Vital Signs Date Time Temp Pulse Resp B/P Pulse Ox O2 Delivery O2 Flow Rate FiO2 09/30/16 08:00 98.7 63 16 120/65 96 09/30/16 07:04 18 09/29/16 23:00 18 09/29/16 20:00 98.2 61 20 112/73 97 I/O 09/29/16 09/29/16 09/29/16 09/30/16 09/30/16 09/30/16 07:00 15:00 23:00 07:00 15:00 23:00 Intake Total 480 ml 480 ml 480 ml 240 ml Balance 480 ml 480 ml 480 ml 240 ml Intake Oral 480 ml 480 ml 480 ml 240 ml # Voids 2 2 1 1 # Bowel Movements 0 1 0 0 Result Diagram: 09/29/16 0440 Objective Remarks GENERAL: Well-developed, well-nourished, in no acute distress. alert and orientated HEENT: Head is normocephalic without any lesions or masses noted. Facial features are symmetric. Eyes: Extraocular muscles are intact. Conjunctivae were clear NECK: Trachea midline no deviation., CARDIAC: Regular rhythm, regular rate. S1/S2 are heard. No murmurs gallops or rubs. LUNGS: Clear to auscultation bilaterally. No wheeze, rhonchi or rales. No use of accessory muscles on inspiration or expiration. ABDOMEN: Soft, nontender. Nondistended. Bowel sounds heard in all 4 quadrants. No organomegaly or masses. Negative rebound, negative guarding EXTREMITIES: No edema, pulses are equal bilaterally. No cyanosis or clubbing. Right lower extremity in splint NEUROLOGY: Mood and affect appear appropriate. Cranial nerves II through XII grossly intact. Moving all extremities, speech is clear RIGHT LOWER EXTREMITY: Right great toe does have medial nail abnormality with erythema, edema, exudate. LEFT LOWER EXTREMITY: Left great toe also has nail changes medially and laterally indicating possible paronychia and redness, infection Procedures 08/03: Removal broken hardware from right tibia and fibula, open treatment of right tibia and fibula nonunion, and iliac crest bone grafting with stem cell graft. Urinary Catheter: No Vascular Central Line Catheter: No A/P Assessment and Plan Right tibia-fibula nonunion, Orthopedic managing, Status post ORIF revision 08/03/[address] Camacho. Last evaluated 09/09/16 Nonweightbearing for 3 months from surgery, 08/03/16 [employer] consulted to remove the splint and place fracture boot Pain control OxyContin 5 mg every 12 hours as needed for pain, last changed 09/27/16 Bilateral great toe infection, paronychia Consulted podiatry who indicated and wrote orders for daily Bactroban cream and Band-Aid. Recommended outpatient follow-up Numbness bilateral feet: Persistent Patient with a workup with RPR, thyroid functions, BMP which appear to be relatively unremarkable Patient being treated for hypomagnesemia, without improvement of her numbness MRI lumbar spine indicates normal conus, mild disc bulge at L4/L5 with moderate disc bulge at L5-S1 no etiology of bilateral extremity numbness Continue Gabapentin 300 mg bid. COPD with shortness of breath and dyspnea, improved Chest x-ray did not indicate any acute abnormality Patient with good O2 saturations Continue incentive spirometry C. difficile colitis, treated Treated with oral Flagyl for total of 14 days Continue monitor stool output to see if repeat culture needs to be performed Repeat C. 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 Hemoglobin stable s/p multiple transfusion, S/p EGD 07/29/16, showed single non bleeding ulcer 3-7 mm in size gastric antrum. 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 s/p transfusion prior to surgery Liver cirrhosis, Hepatic encephalopathy with hyperammonemia, resolved Lactulose discontinued Continue rifaximin Hypertension, stable Continue propranolol and Aldactone. DVT prophylaxis: SCDs, pharmacological prophylaxis contraindicated Discharge Planning Case management for discharge planning Isaac Leal Sep 30, 2016 10:42
[2016-09-30] MEDS: ACETAMINOPHEN 325 MG TAB PO PRN ×2 (11:27→20:48)
[2016-09-30 20:00] VITALS: BP 98/60; PULSE 63; RESP 18; TEMP 99.1; O2SAT 96
[2016-09-30] MEDS: traZODone HCL 50 MG TAB PO SCH (20:48)
[2016-10-01 04:59] LABS: HEMATOCRIT 29.7 % (35.0-46.0); MEAN CELL VOLUME 91.5 FL (80.0-100.0); MEAN CORPUSCULAR HEMOGLOBIN 30.5 PG (27.0-34.0); MEAN CORPUSCULAR HGB CONC 33.3 % (32.0-36.0); PLATELET COUNT 53 TH/MM3 (150-450); RED BLOOD COUNT 3.25 MIL/MM3 (4.00-5.30); RED CELL DISTRIBUTION WIDTH 15.2 % (11.6-17.2); WHITE BLOOD COUNT 2.6 TH/MM3 (4.0-11.0)
[2016-10-01 05:00] LABS: REVIEW FLAG FINAL
[2016-10-01] MEDS: SUCRALFATE 1 GM/10 ML CUP PO SCH ×4 (06:03→21:12)
[2016-10-01 08:00] VITALS: BP 122/72; PULSE 61; RESP 18; TEMP 97.8; O2SAT 96
[2016-10-01] MEDS: SPIRONOLACTONE 25 MG TAB PO SCH ×2 (09:10→21:12)
[2016-10-01] MEDS: PANTOPRAZOLE SOD 40 MG DELAYED RELEASE TAB PO SCH ×2 (09:10→21:12)
[2016-10-01] MEDS: PROPRANOLOL HCL 20 MG TAB PO SCH ×3 (09:10→18:40)
[2016-10-01] MEDS: CALCIUM CARBONATE 1.25 GM (CA 500 MG) TAB PO SCH ×2 (09:10→21:12)
[2016-10-01] MEDS: POTASSIUM CHLORIDE 20 MEQ CONTROLLED RELEASE TAB PO SCH (09:10)
[2016-10-01] MEDS: RIFAXIMIN 550 MG TAB PO SCH ×2 (09:10→21:12)
[2016-10-01] MEDS: GABAPENTIN 300 MG CAP PO SCH ×2 (09:10→21:12)
[2016-10-01] MEDS: CHOLECALCIFEROL (VIT D3) 400 UNIT TAB PO SCH (09:11)
[2016-10-01] MEDS: MUPIROCIN 2% OINT 22 GM TUBE TOPICAL SCH ×2 (09:13→21:00)
[2016-10-01] MEDS: ACETAMINOPHEN 325 MG TAB PO PRN ×2 (09:13→16:10)
--- NOTE | 2016-10-01 11:22 | HHI.PR ---
Subjective Remarks Patient seen and examined today. Patient denies any new complaints. No change in clinical status. Awaiting case management for discharge planning Objective Vitals Vital Signs Date Time Temp Pulse Resp B/P Pulse Ox O2 Delivery O2 Flow Rate FiO2 10/01/16 10:13 16 10/01/16 08:00 97.8 61 18 122/72 96 10/01/16 07:04 16 09/30/16 20:00 99.1 63 18 98/60 96 I/O 09/30/16 09/30/16 09/30/16 10/01/16 10/01/16 10/01/16 07:00 15:00 23:00 07:00 15:00 23:00 Intake Total 240 ml 600 ml 380 ml 320 ml Balance 240 ml 600 ml 380 ml 320 ml Intake Oral 240 ml 600 ml 380 ml 320 ml # Voids 1 3 2 2 # Bowel Movements 0 1 0 0 Result Diagram: 10/01/16 0412 Objective Remarks GENERAL: Well-developed, well-nourished, in no acute distress. alert and orientated HEENT: Head is normocephalic without any lesions or masses noted. Facial features are symmetric. Eyes: Extraocular muscles are intact. Conjunctivae were clear NECK: Trachea midline no deviation., CARDIAC: Regular rhythm, regular rate. S1/S2 are heard. No murmurs gallops or rubs. LUNGS: Clear to auscultation bilaterally. No wheeze, rhonchi or rales. No use of accessory muscles on inspiration or expiration. ABDOMEN: Soft, nontender. Nondistended. Bowel sounds heard in all 4 quadrants. No organomegaly or masses. Negative rebound, negative guarding EXTREMITIES: No edema, pulses are equal bilaterally. No cyanosis or clubbing. Right lower extremity in splint NEUROLOGY: Mood and affect appear appropriate. Cranial nerves II through XII grossly intact. Moving all extremities, speech is clear RIGHT LOWER EXTREMITY: Right great toe does have medial nail abnormality with erythema, edema, exudate. LEFT LOWER EXTREMITY: Left great toe also has nail changes medially and laterally indicating possible paronychia and redness, infection Procedures 08/03: Removal broken hardware from right tibia and fibula, open treatment of right tibia and fibula nonunion, and iliac crest bone grafting with stem cell graft. Urinary Catheter: No Vascular Central Line Catheter: No A/P Assessment and Plan Right tibia-fibula nonunion, Orthopedic managing, Status post ORIF revision 08/03/[address] Camacho. Last evaluated 09/09/16 Nonweightbearing for 3 months from surgery, 08/03/16 [employer] consulted to remove the splint and place fracture boot Pain control OxyContin 5 mg every 12 hours as needed for pain, last changed 09/27/16 Bilateral great toe infection, paronychia Consulted podiatry who indicated and wrote orders for daily Bactroban cream and Band-Aid. Recommended outpatient follow-up Numbness bilateral feet: Persistent Patient with a workup with RPR, thyroid functions, BMP which appear to be relatively unremarkable Patient being treated for hypomagnesemia, without improvement of her numbness MRI lumbar spine indicates normal conus, mild disc bulge at L4/L5 with moderate disc bulge at L5-S1 no etiology of bilateral extremity numbness Continue Gabapentin 300 mg bid. COPD with shortness of breath and dyspnea, improved Chest x-ray did not indicate any acute abnormality Patient with good O2 saturations Continue incentive spirometry C. difficile colitis, treated Treated with oral Flagyl for total of 14 days Continue monitor stool output to see if repeat culture needs to be performed Repeat C. 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 Hemoglobin stable s/p multiple transfusion, S/p EGD 07/29/16, showed single non bleeding ulcer 3-7 mm in size gastric antrum. 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 s/p transfusion prior to surgery Liver cirrhosis, Hepatic encephalopathy with hyperammonemia, resolved Lactulose discontinued Continue rifaximin Hypertension, stable Continue propranolol and Aldactone. DVT prophylaxis: SCDs, pharmacological prophylaxis contraindicated Discharge Planning Case management for discharge planning. Discussed with case management who is recommending the patient be discharged to a homeless long-term. Notified complex case manager they need to contact orthopedic in order to get clearance from them, since patient is a rather complex case that failed outpatient management with nonunion fracture requiring rather extensive surgery for repair this time. Isaac Leal Oct 01, 2016 11:22
[2016-10-01 17:00] VITALS: BP 106/74; PULSE 56; RESP 16; TEMP 97.4; O2SAT 95
[2016-10-01 18:37] VITALS: BP 110/71; PULSE 61; RESP 16; TEMP 96.6; O2SAT 97
[2016-10-01 20:00] VITALS: BP 127/67; PULSE 62; RESP 16; TEMP 97.9; O2SAT 97
[2016-10-01] MEDS: traZODone HCL 50 MG TAB PO SCH (21:12)
[2016-10-02] MEDS: ACETAMINOPHEN 325 MG TAB PO PRN ×3 (02:36→20:35)
[2016-10-02] MEDS: SUCRALFATE 1 GM/10 ML CUP PO SCH (05:30)
[2016-10-02 08:00] VITALS: BP 107/70; PULSE 66; RESP 16; TEMP 98; O2SAT 94
[2016-10-02] MEDS: RIFAXIMIN 550 MG TAB PO SCH ×2 (09:06→20:31)
[2016-10-02] MEDS: CALCIUM CARBONATE 1.25 GM (CA 500 MG) TAB PO SCH ×2 (09:07→20:31)
[2016-10-02] MEDS: GABAPENTIN 300 MG CAP PO SCH ×2 (09:07→20:31)
[2016-10-02] MEDS: PANTOPRAZOLE SOD 40 MG DELAYED RELEASE TAB PO SCH ×2 (09:07→20:31)
[2016-10-02] MEDS: PROPRANOLOL HCL 20 MG TAB PO SCH ×2 (09:08→20:31)
[2016-10-02] MEDS: CHOLECALCIFEROL (VIT D3) 400 UNIT TAB PO SCH (09:09)
[2016-10-02] MEDS: POTASSIUM CHLORIDE 10 MEQ CONTROLLED RELEASE TAB PO SCH (09:09)
[2016-10-02] MEDS: SPIRONOLACTONE 25 MG TAB PO SCH (09:09)
[2016-10-02] MEDS: MUPIROCIN 2% OINT 22 GM TUBE TOPICAL SCH ×2 (09:10→20:34)
--- NOTE | 2016-10-02 10:20 | HHI.PR ---
Subjective Remarks Patient seen and examined today. Patient states that she and episode yesterday where she had profuse sweating, lightheadedness. Nursing staff indicates that the patient blood pressure has been running low as well as bradycardia. Objective Vitals Vital Signs Date Time Temp Pulse Resp B/P Pulse Ox O2 Delivery O2 Flow Rate FiO2 10/02/16 08:00 98.0 66 16 107/70 94 10/02/16 07:34 16 10/01/16 20:00 97.9 62 16 127/67 97 10/01/16 18:37 96.6 61 16 110/71 97 10/01/16 17:10 18 10/01/16 17:00 97.4 56 16 106/74 95 I/O 10/01/16 10/01/16 10/01/16 10/02/16 10/02/16 10/02/16 07:00 15:00 23:00 07:00 15:00 23:00 Intake Total 320 ml 720 ml Balance 320 ml 720 ml Intake Oral 320 ml 720 ml # Voids 2 3 2 1 # Bowel Movements 0 1 1 0 Result Diagram: 10/01/16 0412 Objective Remarks GENERAL: Well-developed, well-nourished, in no acute distress. alert and orientated HEENT: Head is normocephalic without any lesions or masses noted. Facial features are symmetric. Eyes: Extraocular muscles are intact. Conjunctivae were clear NECK: Trachea midline no deviation., CARDIAC: Regular rhythm, regular rate. S1/S2 are heard. No murmurs gallops or rubs. LUNGS: Clear to auscultation bilaterally. No wheeze, rhonchi or rales. No use of accessory muscles on inspiration or expiration. ABDOMEN: Soft, nontender. Nondistended. Bowel sounds heard in all 4 quadrants. No organomegaly or masses. Negative rebound, negative guarding EXTREMITIES: No edema, pulses are equal bilaterally. No cyanosis or clubbing. Right lower extremity in splint NEUROLOGY: Mood and affect appear appropriate. Cranial nerves II through XII grossly intact. Moving all extremities, speech is clear RIGHT LOWER EXTREMITY: Right great toe does have medial nail abnormality with erythema, edema, exudate. LEFT LOWER EXTREMITY: Left great toe also has nail changes medially and laterally indicating possible paronychia and redness, infection Procedures 08/03: Removal broken hardware from right tibia and fibula, open treatment of right tibia and fibula nonunion, and iliac crest bone grafting with stem cell graft. Urinary Catheter: No Vascular Central Line Catheter: No A/P Assessment and Plan Right tibia-fibula nonunion, Orthopedic managing, Status post ORIF revision 08/03/[address] Camacho. Last evaluated 09/09/16 Nonweightbearing for 3 months from surgery, 08/03/16 [employer] consulted to remove the splint and place fracture boot Pain control OxyContin 5 mg every 12 hours as needed for pain, last changed 09/27/16 Bilateral great toe infection, paronychia Consulted podiatry who indicated and wrote orders for daily Bactroban cream and Band-Aid. Recommended outpatient follow-up Numbness bilateral feet: Persistent Patient with a workup with RPR, thyroid functions, BMP which appear to be relatively unremarkable Patient being treated for hypomagnesemia, without improvement of her numbness MRI lumbar spine indicates normal conus, mild disc bulge at L4/L5 with moderate disc bulge at L5-S1 no etiology of bilateral extremity numbness Continue Gabapentin 300 mg bid. COPD with shortness of breath and dyspnea, improved Chest x-ray did not indicate any acute abnormality Patient with good O2 saturations Continue incentive spirometry C. difficile colitis, treated Treated with oral Flagyl for total of 14 days Continue monitor stool output to see if repeat culture needs to be performed Repeat C. 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 Hemoglobin stable s/p multiple transfusion, S/p EGD 07/29/16, showed single non bleeding ulcer 3-7 mm in size gastric antrum. 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 s/p transfusion prior to surgery Liver cirrhosis, Hepatic encephalopathy with hyperammonemia, resolved Lactulose discontinued Continue rifaximin Hypertension, patient with episodes of hypotension and bradycardia Decrease to propanolol 40 mg twice daily Decrease Aldactone 25 mg daily DVT prophylaxis: SCDs, pharmacological prophylaxis contraindicated Discharge Planning Case management for discharge planning. Discussed with case management who is recommending the patient be discharged to a homeless alf. Notified pillowcase sewer they need to contact orthopedic in order to get clearance from them, since patient is a rather complex case that failed outpatient management with nonunion fracture requiring rather extensive surgery for repair this time. Isaac Leal Oct 02, 2016 10:20
[2016-10-02 20:00] VITALS: BP 127/75; PULSE 65; RESP 16; TEMP 97.8; O2SAT 97
[2016-10-02] MEDS: traZODone HCL 50 MG TAB PO SCH (20:31)
[2016-10-03 08:00] VITALS: BP 124/81; PULSE 65; RESP 16; TEMP 97.8; O2SAT 97
[2016-10-03] MEDS: PANTOPRAZOLE SOD 40 MG DELAYED RELEASE TAB PO SCH ×2 (09:12→20:46)
[2016-10-03] MEDS: PROPRANOLOL HCL 20 MG TAB PO SCH ×2 (09:12→20:46)
[2016-10-03] MEDS: RIFAXIMIN 550 MG TAB PO SCH ×2 (09:13→20:46)
[2016-10-03] MEDS: GABAPENTIN 300 MG CAP PO SCH ×2 (09:13→20:46)
[2016-10-03] MEDS: CALCIUM CARBONATE 1.25 GM (CA 500 MG) TAB PO SCH ×2 (09:13→20:46)
[2016-10-03] MEDS: SPIRONOLACTONE 25 MG TAB PO SCH (09:13)
[2016-10-03] MEDS: POTASSIUM CHLORIDE 10 MEQ CONTROLLED RELEASE TAB PO SCH (09:13)
[2016-10-03] MEDS: MUPIROCIN 2% OINT 22 GM TUBE TOPICAL SCH ×2 (09:14→20:47)
[2016-10-03] MEDS: ACETAMINOPHEN 325 MG TAB PO PRN ×3 (09:14→22:28)
[2016-10-03] MEDS: CHOLECALCIFEROL (VIT D3) 400 UNIT TAB PO SCH (09:15)
--- NOTE | 2016-10-03 09:17 | HHI.PR ---
Subjective Remarks Patient seen and examined today. Patient denies any new complaints. No change in clinical status. Awaiting case management for discharge planning Objective Vitals Vital Signs Date Time Temp Pulse Resp B/P Pulse Ox O2 Delivery O2 Flow Rate FiO2 10/03/16 07:33 16 10/02/16 20:00 97.8 65 16 127/75 97 10/02/16 15:18 18 I/O 10/02/16 10/02/16 10/02/16 10/03/16 10/03/16 10/03/16 07:00 15:00 23:00 07:00 15:00 23:00 Intake Total 480 ml 480 ml 240 ml Balance 480 ml 480 ml 240 ml Intake Oral 480 ml 480 ml 240 ml # Voids 1 2 2 2 # Bowel Movements 0 0 0 0 Result Diagram: 10/01/16 0412 Objective Remarks GENERAL: Well-developed, well-nourished, in no acute distress. alert and orientated HEENT: Head is normocephalic without any lesions or masses noted. Facial features are symmetric. Eyes: Extraocular muscles are intact. Conjunctivae were clear NECK: Trachea midline no deviation., CARDIAC: Regular rhythm, regular rate. S1/S2 are heard. No murmurs gallops or rubs. LUNGS: Clear to auscultation bilaterally. No wheeze, rhonchi or rales. No use of accessory muscles on inspiration or expiration. ABDOMEN: Soft, nontender. Nondistended. Bowel sounds heard in all 4 quadrants. No organomegaly or masses. Negative rebound, negative guarding EXTREMITIES: No edema, pulses are equal bilaterally. No cyanosis or clubbing. Right lower extremity in splint NEUROLOGY: Mood and affect appear appropriate. Cranial nerves II through XII grossly intact. Moving all extremities, speech is clear RIGHT LOWER EXTREMITY: Right great toe does have medial nail abnormality with erythema, edema, exudate. LEFT LOWER EXTREMITY: Left great toe also has nail changes medially and laterally indicating possible paronychia and redness, infection Procedures 08/03: Removal broken hardware from right tibia and fibula, open treatment of right tibia and fibula nonunion, and iliac crest bone grafting with stem cell graft. Urinary Catheter: No Vascular Central Line Catheter: No A/P Assessment and Plan Right tibia-fibula nonunion, Orthopedic managing, Status post ORIF revision 08/03/[address] Camacho. Last evaluated 09/09/16 Nonweightbearing for 3 months from surgery, 08/03/16 [facility] consulted to remove the splint and place fracture boot Pain control OxyContin 5 mg every 12 hours as needed for pain, last changed 09/27/16 Bilateral great toe infection, paronychia Consulted podiatry who indicated and wrote orders for daily Bactroban cream and Band-Aid. Recommended outpatient follow-up Numbness bilateral feet: Persistent Patient with a workup with RPR, thyroid functions, BMP which appear to be relatively unremarkable Patient being treated for hypomagnesemia, without improvement of her numbness MRI lumbar spine indicates normal conus, mild disc bulge at L4/L5 with moderate disc bulge at L5-S1 no etiology of bilateral extremity numbness Continue Gabapentin 300 mg bid. COPD with shortness of breath and dyspnea, improved Chest x-ray did not indicate any acute abnormality Patient with good O2 saturations Continue incentive spirometry C. difficile colitis, treated Treated with oral Flagyl for total of 14 days Continue monitor stool output to see if repeat culture needs to be performed Repeat C. 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 Hemoglobin stable s/p multiple transfusion, S/p EGD 07/29/16, showed single non bleeding ulcer 3-7 mm in size gastric antrum. 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 s/p transfusion prior to surgery Liver cirrhosis, Hepatic encephalopathy with hyperammonemia, resolved Lactulose discontinued Continue rifaximin Hypertension, patient with episodes of hypotension and bradycardia propanolol 40 mg twice daily Aldactone 25 mg daily DVT prophylaxis: SCDs, pharmacological prophylaxis contraindicated Discharge Planning Case management for discharge planning. Discussed with case management who is recommending the [facility] be [facility] to a homeless [facility]. Notified adult protective caseworker they need to contact orthopedic in order to get clearance from them, since patient is a rather complex case that failed outpatient management with nonunion fracture requiring rather extensive surgery for repair this time. Isaac Leal Oct 03, 2016 09:17
[2016-10-03 20:00] VITALS: BP 112/66; PULSE 62; RESP 14; TEMP 97.5; O2SAT 98
[2016-10-03] MEDS: traZODone HCL 50 MG TAB PO SCH (20:46)
[2016-10-04 07:15] VITALS: BP 119/71; PULSE 69; RESP 20; TEMP 97.6; O2SAT 93
[2016-10-04] MEDS: MUPIROCIN 2% OINT 22 GM TUBE TOPICAL SCH ×2 (09:00→21:00)
[2016-10-04] MEDS: PROPRANOLOL HCL 20 MG TAB PO SCH ×2 (09:00→21:26)
[2016-10-04] MEDS: CALCIUM CARBONATE 1.25 GM (CA 500 MG) TAB PO SCH ×2 (09:13→21:26)
[2016-10-04] MEDS: SPIRONOLACTONE 25 MG TAB PO SCH (09:13)
[2016-10-04] MEDS: GABAPENTIN 300 MG CAP PO SCH ×2 (09:13→21:25)
[2016-10-04] MEDS: POTASSIUM CHLORIDE 10 MEQ CONTROLLED RELEASE TAB PO SCH (09:13)
[2016-10-04] MEDS: RIFAXIMIN 550 MG TAB PO SCH ×2 (09:13→21:26)
[2016-10-04] MEDS: PANTOPRAZOLE SOD 40 MG DELAYED RELEASE TAB PO SCH ×2 (09:13→21:26)
[2016-10-04] MEDS: CHOLECALCIFEROL (VIT D3) 400 UNIT TAB PO SCH (09:13)
[2016-10-04] MEDS: ACETAMINOPHEN 325 MG TAB PO PRN ×3 (09:14→21:30)
--- NOTE | 2016-10-04 12:07 | HHI.PR ---
Subjective Remarks Patient seen and examined today. Patient has any new complaints. No change in clinical status. Awaiting case management for discharge planning Objective Vitals Vital Signs Date Time Temp Pulse Resp B/P Pulse Ox O2 Delivery O2 Flow Rate FiO2 10/04/16 10:14 16 10/04/16 07:30 16 10/04/16 07:15 97.6 69 20 119/71 93 10/03/16 20:00 97.5 62 14 112/66 98 I/O 10/03/16 10/03/16 10/03/16 10/04/16 10/04/16 10/04/16 07:00 15:00 23:00 07:00 15:00 23:00 Intake Total 240 ml 240 ml 480 ml 480 ml Balance 240 ml 240 ml 480 ml 480 ml Intake Oral 240 ml 240 ml 480 ml 480 ml # Voids 2 1 2 2 # Bowel Movements 0 0 0 0 Result Diagram: 10/01/16 0412 Objective Remarks GENERAL: Well-developed, well-nourished, in no acute distress. alert and orientated HEENT: Head is normocephalic without any lesions or masses noted. Facial features are symmetric. Eyes: Extraocular muscles are intact. Conjunctivae were clear NECK: Trachea midline no deviation., CARDIAC: Regular rhythm, regular rate. S1/S2 are heard. No murmurs gallops or rubs. LUNGS: Clear to auscultation bilaterally. No wheeze, rhonchi or rales. No use of accessory muscles on inspiration or expiration. ABDOMEN: Soft, nontender. Nondistended. Bowel sounds heard in all 4 quadrants. No organomegaly or masses. Negative rebound, negative guarding EXTREMITIES: No edema, pulses are equal bilaterally. No cyanosis or clubbing. Right lower extremity in splint NEUROLOGY: Mood and affect appear appropriate. Cranial nerves II through XII grossly intact. Moving all extremities, speech is clear RIGHT LOWER EXTREMITY: Right great toe does have medial nail abnormality with erythema, edema, exudate. LEFT LOWER EXTREMITY: Left great toe also has nail changes medially and laterally indicating possible paronychia and redness, infection Procedures 08/03: Removal broken hardware from right tibia and fibula, open treatment of right tibia and fibula nonunion, and iliac crest bone grafting with stem cell graft. Urinary Catheter: No Vascular Central Line Catheter: No A/P Assessment and Plan Right tibia-fibula nonunion, Orthopedic managing, Status post ORIF revision 08/03/[address] Camacho. Last evaluated 09/09/16 Nonweightbearing for 3 months from surgery, 08/03/16 [facility] consulted to remove the splint and place fracture boot Pain control OxyContin 5 mg every 12 hours as needed for pain, last changed 09/27/16 Bilateral great toe infection, paronychia Consulted podiatry who indicated and wrote orders for daily Bactroban cream and Band-Aid. Recommended outpatient follow-up Numbness bilateral feet: Persistent Patient with a workup with RPR, thyroid functions, BMP which appear to be relatively unremarkable Patient being treated for hypomagnesemia, without improvement of her numbness MRI lumbar spine indicates normal conus, mild disc bulge at L4/L5 with moderate disc bulge at L5-S1 no etiology of bilateral extremity numbness Continue Gabapentin 300 mg bid. COPD with shortness of breath and dyspnea, improved Chest x-ray did not indicate any acute abnormality Patient with good O2 saturations Continue incentive spirometry C. difficile colitis, treated Treated with oral Flagyl for total of 14 days Continue monitor stool output to see if repeat culture needs to be performed Repeat C. 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 Hemoglobin stable s/p multiple transfusion, S/p EGD 07/29/16, showed single non bleeding ulcer 3-7 mm in size gastric antrum. 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 s/p transfusion prior to surgery Liver cirrhosis, Hepatic encephalopathy with hyperammonemia, resolved Lactulose discontinued Continue rifaximin Hypertension, patient with episodes of hypotension and bradycardia propanolol 40 mg twice daily Aldactone 25 mg daily DVT prophylaxis: SCDs, pharmacological prophylaxis contraindicated Discharge Planning Case management for discharge planning. Discussed with case management who is recommending the patient be discharged to a homeless halfway. Notified major case detective they need to contact orthopedic in order to get clearance from them, since patient is a rather complex case that failed outpatient management with nonunion fracture requiring rather extensive surgery for repair this time. Isaac Leal Oct 04, 2016 12:07
[2016-10-04 20:00] VITALS: BP 141/82; PULSE 56; RESP 18; TEMP 97.9; O2SAT 99
[2016-10-04] MEDS: traZODone HCL 50 MG TAB PO SCH (21:25)
[2016-10-05 08:00] VITALS: BP 130/77; PULSE 69; RESP 18; TEMP 97.9; O2SAT 96
[2016-10-05] MEDS: RIFAXIMIN 550 MG TAB PO SCH ×2 (08:54→20:32)
[2016-10-05] MEDS: PROPRANOLOL HCL 20 MG TAB PO SCH ×2 (08:54→20:34)
[2016-10-05] MEDS: CHOLECALCIFEROL (VIT D3) 400 UNIT TAB PO SCH (08:54)
[2016-10-05] MEDS: CALCIUM CARBONATE 1.25 GM (CA 500 MG) TAB PO SCH ×2 (08:54→20:33)
[2016-10-05] MEDS: POTASSIUM CHLORIDE 10 MEQ CONTROLLED RELEASE TAB PO SCH (08:54)
[2016-10-05] MEDS: GABAPENTIN 300 MG CAP PO SCH ×2 (08:54→20:32)
[2016-10-05] MEDS: MUPIROCIN 2% OINT 22 GM TUBE TOPICAL SCH ×2 (08:54→20:37)
[2016-10-05] MEDS: SPIRONOLACTONE 25 MG TAB PO SCH (08:54)
[2016-10-05] MEDS: ACETAMINOPHEN 325 MG TAB PO PRN ×3 (08:54→20:40)
[2016-10-05] MEDS: PANTOPRAZOLE SOD 40 MG DELAYED RELEASE TAB PO SCH ×2 (08:54→20:32)
--- NOTE | 2016-10-05 18:32 | HHI.PR ---
Subjective Remarks Patient evaluated this morning. No acute complaints. Objective Vitals Vital Signs Date Time Temp Pulse Resp B/P Pulse Ox O2 Delivery O2 Flow Rate FiO2 10/05/16 16:25 18 10/05/16 08:52 18 10/05/16 08:00 97.9 69 18 130/77 96 10/04/16 20:00 97.9 56 18 141/82 99 I/O 10/04/16 10/04/16 10/04/16 10/05/16 10/05/16 10/05/16 07:00 15:00 23:00 07:00 15:00 23:00 Intake Total 480 ml 600 ml 0 ml 0 ml 500 ml Balance 480 ml 600 ml 0 ml 0 ml 500 ml Intake Oral 480 ml 600 ml 500 ml IV Total 0 ml 0 ml # Voids 2 4 1 1 # Bowel Movements 0 0 Result Diagram: 10/01/16 0412 Objective Remarks GENERAL: Pleasant well-nourished, well-developed patient in no apparent distress. CARDIOVASCULAR: Regular rate and rhythm. RESPIRATORY: No accessory muscle use. CTAB. GASTROINTESTINAL: Abdomen soft, nontender, nondistended. MUSCULOSKELETAL: Fracture boot to right lower extremity. 2+ right distal radial pulse. NEUROLOGICAL: Awake and alert. Normal speech. PSYCHIATRIC: Appropriate mood and affect; insight and judgment normal. Procedures 08/03: Removal broken hardware from right tibia and fibula, open treatment of right tibia and fibula nonunion, and iliac crest bone grafting with stem cell graft. Urinary Catheter: No Vascular Central Line Catheter: No A/P Problem List: (1) Cirrhosis of liver ICD Code: K74.60 Status: Chronic (2) Fracture of distal end of tibia with fibula ICD Code: S82.309A Status: Chronic (3) Thrombocytopenia ICD Code: D69.6 Status: Acute Assessment and Plan Right tibia-fibula nonunion, Orthopedics managing, last evaluated patient on 09/29/16. Status post ORIF revision 08/03/[address] Camacho. Fracture boot in place. Strict nonweightbearing RLE 3 months from date of surgery. Pain control: Avoid acetaminophen use. Oxycodone 5 mg every 12 hours as needed for pain 4-10. COPD with shortness of breath and dyspnea, improved Chest x-ray did not indicate any acute abnormality Patient with good O2 saturations Continue incentive spirometry C. difficile colitis, treated Treated with oral Flagyl for total of 14 days Repeat C.diff test 09/01 negative. 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 Hemoglobin stable at 9.7 today. s/p multiple transfusion, S/p EGD 07/29/16, showed single non bleeding ulcer 3-7 mm in size gastric antrum. Continue Protonix. Thrombocytopenia: Stable at 53. 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 s/p transfusion prior to surgery Monitor periodically. Liver cirrhosis, Hepatic encephalopathy with hyperammonemia. Ammonia 45 on . Lactulose discontinued Ammonia level 08/27 improved to 40. Continue Rifaximin Hypertension, stable Continue propranolol and Aldactone. Numbness bilateral feet: Continued. H/o alcohol abuse. -B12 was 1449 on 07/27. Folate was normal. -RPR nonreactive. -TSH mildly elevated at 5.080. Free T3 normal and Free T4 1.47, relatively normal. -S/p Magnesium repletion. -Thiamine level at the lower limit of normal. -Continue Gabapentin 300 mg bid. -MRI lumbar spine indicates normal conus, mild disc bulge at L4/L5 with moderate disc bulge at L5-S1 no etiology of bilateral lower extremity numbness Paronychia: Patient has skin changes around the nails to both feet and a few fingers that appears as chronic paronychia. No acute abscess is evident, but colleague noted some exudate and possible acute infection of great toes. Patient admits to picking under and biting her fingernails as well as having ingrown toenails. -S/p soaking in warm water with Epsom salt. -S/p triamcinolone acetonide 0.1% ointment. -Patient advised against biting her nails due to risk of infection. -Podiatry evaluated the patient on 09/09 and clipped all nails. Orders for daily mupirocin/bandaid to R hallux and 2nd toenail. States can f/u in office. Signed off. H/o ulcer and gastric varices: Continue Carafate. Nausea/fatigue: Resolved. -No elevation in WBC count. -Zinc level low at 41. Increase dietary intake. Consider supplementation. VIMAL: Resolved s/p IVF. -Avoid nephrotoxins. -Patient is advised against drinking soda and advised to orally hydrate with water. Mild Vitamin D deficiency: 25 OH-D level 28.6. -Continue Vitamin D3 600 units daily. Continue calcium carbonate 500 mg q12h as patient has fracture and is post menopausal. DVT prophylaxis: SCDs, pharmacological prophylaxis contraindicated. Discharge Planning customer development manager following. Will require clearance by orthopedics for discharge. customer development manager has found housing at the [facility] on ground floor. states we could assist with outpatient rehabilitation and transport assistance. customer development manager has called Ortho PA and addressed this option with him, but PA needs to speak with orthopedic surgeon to see if acceptable. Awaiting response. Alix Johnson Oct 05, 2016 18:32
[2016-10-05 20:00] VITALS: BP 115/68; PULSE 66; RESP 20; TEMP 98.1; O2SAT 97
[2016-10-05] MEDS: traZODone HCL 50 MG TAB PO SCH (20:32)
[2016-10-06 08:00] VITALS: BP 109/62; PULSE 64; RESP 16; TEMP 98; O2SAT 93
[2016-10-06] MEDS: PROPRANOLOL HCL 20 MG TAB PO SCH ×2 (08:47→21:34)
[2016-10-06] MEDS: CALCIUM CARBONATE 1.25 GM (CA 500 MG) TAB PO SCH ×2 (08:47→21:34)
[2016-10-06] MEDS: SPIRONOLACTONE 25 MG TAB PO SCH (08:48)
[2016-10-06] MEDS: PANTOPRAZOLE SOD 40 MG DELAYED RELEASE TAB PO SCH ×2 (08:48→21:34)
[2016-10-06] MEDS: RIFAXIMIN 550 MG TAB PO SCH ×2 (08:48→21:34)
[2016-10-06] MEDS: POTASSIUM CHLORIDE 10 MEQ CONTROLLED RELEASE TAB PO SCH (08:48)
[2016-10-06] MEDS: GABAPENTIN 300 MG CAP PO SCH ×2 (08:48→21:36)
[2016-10-06] MEDS: CHOLECALCIFEROL (VIT D3) 400 UNIT TAB PO SCH (08:54)
[2016-10-06] MEDS: MUPIROCIN 2% OINT 22 GM TUBE TOPICAL SCH ×2 (08:57→21:40)
--- NOTE | 2016-10-06 09:03 | HHI.PR ---
Subjective Remarks Patient states she is ready to go home. I informed her that we would need clearance from orthopedics. No other acute complaints. Objective Vitals Vital Signs Date Time Temp Pulse Resp B/P Pulse Ox O2 Delivery O2 Flow Rate FiO2 10/06/16 08:00 98.0 64 16 109/62 93 10/05/16 21:40 16 10/05/16 20:00 98.1 66 20 115/68 97 10/05/16 19:27 14 I/O 10/05/16 10/05/16 10/05/16 10/06/16 10/06/16 10/06/16 07:00 15:00 23:00 07:00 15:00 23:00 Intake Total 0 ml 500 ml 630 ml 240 ml Balance 0 ml 500 ml 630 ml 240 ml Intake Oral 500 ml 630 ml 240 ml IV Total 0 ml # Voids 1 2 2 # Bowel Movements 0 0 Objective Remarks GENERAL: Pleasant well-nourished, well-developed patient in no apparent distress. SKIN: Scabbing over R tibia in area of surgery. Paronychia of toes to both feet. CARDIOVASCULAR: Regular rate and rhythm. RESPIRATORY: No accessory muscle use. CTAB. MUSCULOSKELETAL: 2+ right DP pulse. NEUROLOGICAL: Awake and alert. Normal speech. PSYCHIATRIC: Appropriate mood and affect; insight and judgment normal. Procedures 08/03: Removal broken hardware from right tibia and fibula, open treatment of right tibia and fibula nonunion, and iliac crest bone grafting with stem cell graft. Urinary Catheter: No Vascular Central Line Catheter: No A/P Problem List: (1) Cirrhosis of liver ICD Code: K74.60 Status: Chronic (2) Fracture of distal end of tibia with fibula ICD Code: S82.309A Status: Chronic (3) Thrombocytopenia ICD Code: D69.6 Status: Acute Assessment and Plan Right tibia-fibula nonunion, Orthopedics managing, last evaluated patient on 09/29/16. Status post ORIF revision 08/03/[address] Camacho. Fracture boot in place. Strict nonweightbearing RLE 3 months from date of surgery. Pain control: Avoid acetaminophen use. Oxycodone 5 mg every 12 hours as needed for pain 4-10. COPD with shortness of breath and dyspnea, improved Chest x-ray did not indicate any acute abnormality Patient with good O2 saturations Continue incentive spirometry C. difficile colitis, treated Treated with oral Flagyl for total of 14 days Repeat C.diff test 09/01 negative. 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 Hemoglobin stable at 9.7 today. s/p multiple transfusion, S/p EGD 07/29/16, showed single non bleeding ulcer 3-7 mm in size gastric antrum. Continue Protonix. Thrombocytopenia: Stable at 53. 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 s/p transfusion prior to surgery Monitor periodically. Liver cirrhosis, Hepatic encephalopathy with hyperammonemia. Ammonia 45 on . Lactulose discontinued Ammonia level 08/27 improved to 40. Continue Rifaximin Hypertension, stable Continue propranolol and Aldactone. Numbness bilateral feet: Continued. H/o alcohol abuse. -B12 was 1449 on 07/27. Folate was normal. -RPR nonreactive. -TSH mildly elevated at 5.080. Free T3 normal and Free T4 1.47, relatively normal. -S/p Magnesium repletion. -Thiamine level at the lower limit of normal. -Continue Gabapentin 300 mg bid. -MRI lumbar spine indicates normal conus, mild disc bulge at L4/L5 with moderate disc bulge at L5-S1 no etiology of bilateral lower extremity numbness Paronychia: Patient has skin changes around the nails to both feet and a few fingers that appears as chronic paronychia. No acute abscess is evident, but colleague noted some exudate and possible acute infection of great toes. Patient admits to picking under and biting her fingernails as well as having ingrown toenails. -S/p soaking in warm water with Epsom salt. -S/p triamcinolone acetonide 0.1% ointment. -Patient advised against biting her nails due to risk of infection. -Podiatry evaluated the patient on 09/09 and clipped all nails. Orders for daily mupirocin/bandaid to R hallux and 2nd toenail. States can f/u in office. Signed off. H/o ulcer and gastric varices: Continue Carafate. Nausea/fatigue: Resolved. -No elevation in WBC count. Zinc deficiency: Zinc level low at 41. Could be due to liver disease and could be contributing to paronychias. -Encouraged patient to increase dietary intake. She is not too keen on supplementation but is agreeable if necessary. Consider supplementation. VIMAL: Resolved s/p IVF. -Avoid nephrotoxins. -Patient is advised against drinking soda and advised to orally hydrate with water. Mild Vitamin D deficiency: 25 OH-D level 28.6. -Continue Vitamin D3 600 units daily. Continue calcium carbonate 500 mg q12h as patient has fracture and is post menopausal. DVT prophylaxis: SCDs, pharmacological prophylaxis contraindicated. Discharge Planning manager star following. Will require clearance by orthopedics for discharge. manager star has found housing at the [facility] on ground floor. CM states we could assist with outpatient rehabilitation and transport assistance. manager star has called Ortho PA and addressed this option with him, but PA needs to speak with orthopedic surgeon to see if acceptable. 10/06/16: I was later informed by nurse that patient would like to see orthopedics today. I spoke with Miguel Herrera informing him that the patient is anxious to leave. He states he has discussed discharge plan with Dr. Camacho, and if CM has a solid discharge plan and patient wants to be responsible for her own safety, we can discharge patient. He states he will come evaluate patient today. I have informed Panfilo Gill, correctional case manager, that ortho will be evaluating patient today and he will need to discuss discharge plan with ortho today or tomorrow. He understands. Alix Johnson Oct 06, 2016 09:03
[2016-10-06] MEDS: ACETAMINOPHEN 325 MG TAB PO PRN (11:38)
--- NOTE | 2016-10-06 14:14 | PD.ORT.PN ---
Subjective Subjective Remarks Pain controlled. No new complaints Objective Vitals Vital Signs Date Time Temp Pulse Resp B/P Pulse Ox O2 Delivery O2 Flow Rate FiO2 10/06/16 08:00 98.0 64 16 109/62 93 10/05/16 21:40 16 10/05/16 20:00 98.1 66 20 115/68 97 10/05/16 19:27 14 I/O 10/05/16 10/05/16 10/05/16 10/06/16 10/06/16 10/06/16 07:00 15:00 23:00 07:00 15:00 23:00 Intake Total 0 ml 500 ml 630 ml 240 ml Balance 0 ml 500 ml 630 ml 240 ml Intake Oral 500 ml 630 ml 240 ml IV Total 0 ml # Voids 1 2 2 # Bowel Movements 0 0 Imaging Last 72 hours Impressions Ankle X-Ray 08/03/16 0000 Signed Impressions: Service Date/Time: Wednesday, August 03, 2016 16:54 - CONCLUSION: Status post ORIF of distal right tibial and fibular fractures resulting in satisfactory anatomic alignment. Edis Plascencia MD Objective Remarks Right lower extremity: Iliac crest bone graft site healed no pain with hip or knee range of motion. Examination of the ankle reveals surgical incision is completely healed. She has intact sensation on her toes. Ankle range of motion is 5 dorsiflexion and 30 of plantarflexion Assessment & Plan Assessment and Plan 1) Right Distal Tibia nonunion with removal of hardware, open reduction internal fixation, stem cells and iliac crest bone graft - 08/03/16 strict NWB on RLE - 3 months from surgery fracture boot to be worn at all times except for showers and physical therapy case management for possible discharge to [facility] [place]. If her room is confirmed and she has appropriate DME's, discharge may be considered. she will need follow-up x-rays in approximately 1 month. If discharged she will need to follow up in office. KIRK ROCA PA-C Oct 06, 2016 14:14
[2016-10-06 20:00] VITALS: BP 108/65; PULSE 66; RESP 16; TEMP 97.3; O2SAT 97
[2016-10-06] MEDS: traZODone HCL 50 MG TAB PO SCH (21:35)
[2016-10-07] MEDS: ACETAMINOPHEN 325 MG TAB PO PRN ×3 (00:03→18:23)
[2016-10-07 08:00] VITALS: BP 109/75; PULSE 70; RESP 16; TEMP 97.9; O2SAT 96
[2016-10-07] MEDS: RIFAXIMIN 550 MG TAB PO SCH ×2 (08:54→21:15)
[2016-10-07] MEDS: SPIRONOLACTONE 25 MG TAB PO SCH (08:54)
[2016-10-07] MEDS: POTASSIUM CHLORIDE 10 MEQ CONTROLLED RELEASE TAB PO SCH (08:54)
[2016-10-07] MEDS: PROPRANOLOL HCL 20 MG TAB PO SCH ×2 (08:54→21:15)
[2016-10-07] MEDS: CHOLECALCIFEROL (VIT D3) 400 UNIT TAB PO SCH (08:55)
[2016-10-07] MEDS: PANTOPRAZOLE SOD 40 MG DELAYED RELEASE TAB PO SCH ×2 (08:55→21:15)
[2016-10-07] MEDS: CALCIUM CARBONATE 1.25 GM (CA 500 MG) TAB PO SCH ×2 (08:55→21:15)
[2016-10-07] MEDS: MUPIROCIN 2% OINT 22 GM TUBE TOPICAL SCH ×2 (08:55→21:16)
[2016-10-07] MEDS: GABAPENTIN 300 MG CAP PO SCH ×2 (08:55→18:00)
--- NOTE | 2016-10-07 12:23 | HHI.PR ---
Subjective Remarks Follow up s/p ORIF right lower extremity. Patient still complains of numbness in her feet. Objective Vitals Vital Signs Date Time Temp Pulse Resp B/P Pulse Ox O2 Delivery O2 Flow Rate FiO2 10/07/16 08:00 97.9 70 16 109/75 96 10/07/16 01:03 16 10/06/16 22:35 16 10/06/16 20:00 97.3 66 16 108/65 97 I/O 10/06/16 10/06/16 10/06/16 10/07/16 10/07/16 10/07/16 07:00 15:00 23:00 07:00 15:00 23:00 Intake Total 240 ml 240 ml 480 ml 480 ml Balance 240 ml 240 ml 480 ml 480 ml Intake Oral 240 ml 240 ml 480 ml 480 ml # Voids 2 2 1 1 # Bowel Movements 0 0 0 0 Objective Remarks GENERAL: Pleasant well-nourished, well-developed patient in no apparent distress standing at doorway with walker upon my entrance to room. CARDIOVASCULAR: Regular rate and rhythm. RESPIRATORY: No accessory muscle use. CTAB. GASTROINTESTINAL: Abdomen soft, non-tender, non-distended. MUSCULOSKELETAL: 2+ right DP pulse. Ambulates with walker appropriately NWB on RLE. NEUROLOGICAL: Awake and alert. Normal speech. PSYCHIATRIC: Appropriate mood and affect; insight and judgment normal. Procedures 08/03: Removal broken hardware from right tibia and fibula, open treatment of right tibia and fibula nonunion, and iliac crest bone grafting with stem cell graft. Urinary Catheter: No Vascular Central Line Catheter: No A/P Problem List: (1) Cirrhosis of liver ICD Code: K74.60 Status: Chronic (2) Fracture of distal end of tibia with fibula ICD Code: S82.309A Status: Chronic (3) Thrombocytopenia ICD Code: D69.6 Status: Acute (4) Zinc deficiency ICD Code: E60 Status: Acute Assessment and Plan Right tibia-fibula nonunion, Orthopedics managing, last evaluated patient on 10/06/16. Status post ORIF revision 08/03/[address] Camacho. Fracture boot to be worn at all times except for showers and physical therapy. Strict nonweightbearing RLE 3 months from date of surgery. Pain control: Avoid acetaminophen use. Oxycodone 5 mg every 12 hours as needed for pain 4-10. COPD with shortness of breath and dyspnea, improved Chest x-ray did not indicate any acute abnormality Patient with good O2 saturations Continue incentive spirometry C. difficile colitis, treated Treated with oral Flagyl for total of 14 days Repeat C.diff test 09/01 negative. 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 Hemoglobin stable at 9.7 today. s/p multiple transfusion, S/p EGD 07/29/16, showed single non bleeding ulcer 3-7 mm in size gastric antrum. Continue Protonix. Thrombocytopenia: Stable at 53. 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 s/p transfusion prior to surgery Monitor periodically. Liver cirrhosis, Hepatic encephalopathy with hyperammonemia. Ammonia 45 on . Lactulose discontinued Ammonia level 08/27 improved to 40. Continue Rifaximin Hypertension, stable Continue propranolol and Aldactone. Numbness bilateral feet: Continued. H/o alcohol abuse. -B12 was 1449 on 07/27. Folate was normal. -RPR nonreactive. -TSH mildly elevated at 5.080. Free T3 normal and Free T4 1.47, relatively normal. -S/p Magnesium repletion. -Thiamine level at the lower limit of normal. -Gabapentin 300 mg bid increased to 300 mg tid. -MRI lumbar spine indicates normal conus, mild disc bulge at L4/L5 with moderate disc bulge at L5-S1 no etiology of bilateral lower extremity numbness Paronychia: Patient has skin changes around the nails to both feet and a few fingers that appears as chronic paronychia. No acute abscess is evident, but colleague noted some exudate and possible acute infection of great toes. Patient admits to picking under and biting her fingernails as well as having ingrown toenails. -S/p soaking in warm water with Epsom salt. -S/p triamcinolone acetonide 0.1% ointment. -Patient advised against biting her nails due to risk of infection. -Podiatry evaluated the patient on 09/09 and clipped all nails. Orders for daily mupirocin/bandaid to R hallux and 2nd toenail. States can f/u in office. Signed off. H/o ulcer and gastric varices: Continue Carafate. Nausea/fatigue: Resolved. -No elevation in WBC count. Zinc deficiency: Zinc level low at 41. Could be due to liver disease and could be contributing to paronychias. -Encouraged patient to increase dietary intake. -I spoke with pharmacist, Rob today in regards to appropriate supplementation. States MV only contains small amount of zinc. Recommends zinc sulfate 220 mg po bid for one week and then lower to 220 mg po daily, and obtain new zinc level during that time of once daily dosing to assess improvement. Zinc sulfate ordered. VIMAL: Resolved s/p IVF. -Avoid nephrotoxins. -Patient is advised against drinking soda and advised to orally hydrate with water. Mild Vitamin D deficiency: 25 OH-D level 28.6. -Continue Vitamin D3 600 units daily. Continue calcium carbonate 500 mg q12h as patient has fracture and is post menopausal. DVT prophylaxis: SCDs, pharmacological prophylaxis contraindicated. Discharge Planning manager marketing following. Will require clearance by orthopedics for discharge. manager marketing has found housing at the [facility] on ground floor. CM states we could assist with outpatient rehabilitation and transport assistance. manager marketing has called Ortho PA and addressed this option with him, but PA needs to speak with orthopedic surgeon to see if acceptable. 10/06/16: I spoke with Miguel Herrera informing him that the patient is anxious to leave. He states he has discussed discharge plan with Dr. Camacho, and if CM has a solid discharge plan and patient wants to be responsible for her own safety, we can discharge patient. He states he will come evaluate patient today. I have informed Panfilo Gill, behavioral health case manager, that he will need to discuss discharge plan with ortho. 10/06/16: Per ortho, if patient's room is confirmed and she has appropriate DME's , discharge may be considered. She will need follow-up x-rays in approximately 1 month. If discharged she will need to follow up in office. 10/07/16: Per CM: working on discharging the patient with PCP follow-up and outpatient rehabilitation at [address] [place] [address]. Patient to return to [facility]. CM to secure transport to and from scheduled appointments. Per CM plan for discharge by 10-14-16 once all needs are met. Alix Johnson Oct 07, 2016 12:23
[2016-10-07 20:00] VITALS: BP 111/75; PULSE 58; RESP 16; TEMP 97.2; O2SAT 99
[2016-10-07] MEDS: ZINC SULFATE 220 MG CAP PO SCH (21:15)
[2016-10-07] MEDS: traZODone HCL 50 MG TAB PO SCH (21:16)
[2016-10-08] MEDS: ACETAMINOPHEN 325 MG TAB PO PRN ×3 (06:45→17:01)
[2016-10-08 08:00] VITALS: BP 107/68; PULSE 63; RESP 18; TEMP 98.1; O2SAT 97
[2016-10-08] MEDS: POTASSIUM CHLORIDE 10 MEQ CONTROLLED RELEASE TAB PO SCH (08:51)
[2016-10-08] MEDS: ZINC SULFATE 220 MG CAP PO SCH ×2 (08:51→21:20)
[2016-10-08] MEDS: CHOLECALCIFEROL (VIT D3) 400 UNIT TAB PO SCH (08:51)
[2016-10-08] MEDS: CALCIUM CARBONATE 1.25 GM (CA 500 MG) TAB PO SCH ×2 (08:51→21:20)
[2016-10-08] MEDS: PANTOPRAZOLE SOD 40 MG DELAYED RELEASE TAB PO SCH ×2 (08:51→21:20)
[2016-10-08] MEDS: RIFAXIMIN 550 MG TAB PO SCH ×2 (08:51→21:20)
[2016-10-08] MEDS: GABAPENTIN 300 MG CAP PO SCH ×3 (08:51→17:01)
[2016-10-08] MEDS: PROPRANOLOL HCL 20 MG TAB PO SCH ×2 (08:52→21:20)
[2016-10-08] MEDS: SPIRONOLACTONE 25 MG TAB PO SCH (08:52)
[2016-10-08] MEDS: MUPIROCIN 2% OINT 22 GM TUBE TOPICAL SCH ×2 (08:52→21:21)
--- NOTE | 2016-10-08 11:01 | HHI.FF ---
Face to Face Verification Diagnosis: (1) Fracture of distal end of tibia with fibula Physical Therapy Safety evaluation Right LE Weight Bearing: Non WB Right LE Range of Motion: Passive ROM Left LE Weight Bearing: WB as tolerated I have seen patient Genoveva Trujillo on 10/08/16. My clinical findings support the need for the requested home health care services because: Limited ability to care for self I certify that my clinical findings support that this patient is homebound because: Post-op weakness KIRK ROCA PA-C Oct 08, 2016 11:00
--- NOTE | 2016-10-08 13:21 | HHI.PR ---
Subjective Remarks Patient seen and examined today. Patient complains of some dried blood over the left great toenail which is now resolved. Objective Vitals Vital Signs Date Time Temp Pulse Resp B/P Pulse Ox O2 Delivery O2 Flow Rate FiO2 10/08/16 08:00 98.1 63 18 107/68 97 10/07/16 20:00 97.2 58 16 111/75 99 I/O 10/07/16 10/07/16 10/07/16 10/08/16 10/08/16 10/08/16 07:00 15:00 23:00 07:00 15:00 23:00 Intake Total 480 ml 480 ml 480 ml 240 ml 320 ml Output Total 480 ml Balance 480 ml 480 ml 0 ml 240 ml 320 ml Intake Oral 480 ml 480 ml 480 ml 240 ml 320 ml Output Urine Total 480 ml # Voids 1 3 1 # Bowel Movements 0 1 0 0 Objective Remarks GENERAL: Pleasant well-nourished, well-developed patient in no apparent distress. SKIN: No bleeding from left great toenail. CARDIOVASCULAR: Regular rate and rhythm. RESPIRATORY: No accessory muscle use. CTAB. GASTROINTESTINAL: Abdomen soft, non-tender, non-distended. MUSCULOSKELETAL: Fracture boot right lower extremity. 2+ right DP pulse. Ambulates in baig with walker appropriately NWB on RLE with physical therapist. NEUROLOGICAL: Awake and alert. Normal speech. PSYCHIATRIC: Appropriate mood and affect; insight and judgment normal. Procedures 08/03: Removal broken hardware from right tibia and fibula, open treatment of right tibia and fibula nonunion, and iliac crest bone grafting with stem cell graft. Urinary Catheter: No Vascular Central Line Catheter: No A/P Problem List: (1) Cirrhosis of liver ICD Code: K74.60 Status: Chronic (2) Fracture of distal end of tibia with fibula ICD Code: S82.309A Status: Chronic (3) Thrombocytopenia ICD Code: D69.6 Status: Acute (4) Zinc deficiency ICD Code: E60 Status: Acute Assessment and Plan Right tibia-fibula nonunion, Orthopedics managing, last evaluated patient on 10/06/16. Status post ORIF revision 08/03/[address] Camacho. Fracture boot to be worn at all times except for showers and physical therapy. Strict nonweightbearing RLE 3 months from date of surgery. Pain control: Avoid acetaminophen use. Oxycodone 5 mg every 12 hours as needed for pain 4-10. COPD with shortness of breath and dyspnea, improved Chest x-ray did not indicate any acute abnormality Patient with good O2 saturations Continue incentive spirometry C. difficile colitis, treated Treated with oral Flagyl for total of 14 days Repeat C.diff test 09/01 negative. 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 Hemoglobin stable at 9.7 today. s/p multiple transfusion, S/p EGD 07/29/16, showed single non bleeding ulcer 3-7 mm in size gastric antrum. Continue Protonix. Thrombocytopenia: Stable at 53. 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 s/p transfusion prior to surgery Monitor periodically. Liver cirrhosis, Hepatic encephalopathy with hyperammonemia. Ammonia 45 on . Lactulose discontinued Ammonia level 08/27 improved to 40. Continue Rifaximin Hypertension, stable Continue propranolol and Aldactone. Numbness bilateral feet: Continued. H/o alcohol abuse. -B12 was 1449 on 07/27. Folate was normal. -RPR nonreactive. -TSH mildly elevated at 5.080. Free T3 normal and Free T4 1.47, relatively normal. -S/p Magnesium repletion. -Thiamine level at the lower limit of normal. -Gabapentin 300 mg tid. -MRI lumbar spine indicates normal conus, mild disc bulge at L4/L5 with moderate disc bulge at L5-S1 no etiology of bilateral lower extremity numbness Paronychia: Patient has skin changes around the nails to both feet and a few fingers that appears as chronic paronychia. No acute abscess is evident, but colleague noted some exudate and possible acute infection of great toes. Patient admits to picking under and biting her fingernails as well as having ingrown toenails. -S/p soaking in warm water with Epsom salt. -S/p triamcinolone acetonide 0.1% ointment. -Patient advised against biting her nails due to risk of infection. -Podiatry evaluated the patient on 09/09 and clipped all nails. Orders for daily mupirocin/bandaid to R hallux and 2nd toenail. States can f/u in office. Signed off. H/o ulcer and gastric varices: Continue Carafate. Nausea/fatigue: Resolved. -No elevation in WBC count. Zinc deficiency: Zinc level low at 41. Could be due to liver disease and could be contributing to paronychias. -Encouraged patient to increase dietary intake. -I spoke with pharmacist in regards to appropriate supplementation. Recommends zinc sulfate 220 mg po bid for one week and then lower to 220 mg po daily, and obtain new zinc level during that time of once daily dosing to assess improvement. Zinc sulfate started on 10/07/16. VIMAL: Resolved s/p IVF. -Avoid nephrotoxins. -Patient is advised against drinking soda and advised to orally hydrate with water. Mild Vitamin D deficiency: 25 OH-D level 28.6. -Continue Vitamin D3 600 units daily. Continue calcium carbonate 500 mg q12h as patient has fracture and is post menopausal. DVT prophylaxis: SCDs, pharmacological prophylaxis contraindicated. Discharge Planning clinical trial manager has found housing at the [facility] on ground floor. CM states we could assist with outpatient rehabilitation and transport assistance. clinical trial manager has called Ever MIDDLETON and addressed this option with him 10/06/16: Per ortho, if patient's room is confirmed and she has appropriate DME's , discharge may be considered. She will need follow-up x-rays in approximately 1 month. If discharged she will need to follow up in office. 10/07/16: Per CM: working on discharging the patient with PCP follow-up and outpatient rehabilitation at [address] [place] [address]. Patient to return to [facility]. CM to secure transport to and from scheduled appointments. 10/08/16: Orthopedics has cleared patient for discharge. I spoke with case advocate Panfilo Gill today who states he needs to get outpatient physical therapy order from orthopedics whom he has contacted in order to set patient up at outpatient rehabilitation. He states discharge is likely 2-2-17 once all needs are met. PT recommends shorter rolling walker. Patient has knee scooter at home. Alix Johnson Oct 08, 2016 13:21
[2016-10-08 20:00] VITALS: BP 130/60; PULSE 64; RESP 18; TEMP 99; O2SAT 96
[2016-10-08] MEDS: traZODone HCL 50 MG TAB PO SCH (21:20)
[2016-10-09] MEDS: ACETAMINOPHEN 325 MG TAB PO PRN ×3 (04:21→16:30)
[2016-10-09 08:00] VITALS: BP 115/64; PULSE 65; RESP 16; TEMP 99; O2SAT 95
[2016-10-09] MEDS: CHOLECALCIFEROL (VIT D3) 400 UNIT TAB PO SCH (08:50)
[2016-10-09] MEDS: RIFAXIMIN 550 MG TAB PO SCH ×2 (08:50→20:36)
[2016-10-09] MEDS: PROPRANOLOL HCL 20 MG TAB PO SCH ×2 (08:50→20:35)
[2016-10-09] MEDS: MUPIROCIN 2% OINT 22 GM TUBE TOPICAL SCH ×2 (08:50→20:37)
[2016-10-09] MEDS: PANTOPRAZOLE SOD 40 MG DELAYED RELEASE TAB PO SCH ×2 (08:50→20:36)
[2016-10-09] MEDS: ZINC SULFATE 220 MG CAP PO SCH ×2 (08:50→20:36)
[2016-10-09] MEDS: SPIRONOLACTONE 25 MG TAB PO SCH (08:50)
[2016-10-09] MEDS: POTASSIUM CHLORIDE 10 MEQ CONTROLLED RELEASE TAB PO SCH (08:50)
[2016-10-09] MEDS: GABAPENTIN 300 MG CAP PO SCH ×3 (08:50→16:30)
[2016-10-09] MEDS: CALCIUM CARBONATE 1.25 GM (CA 500 MG) TAB PO SCH ×2 (08:50→20:36)
--- NOTE | 2016-10-09 11:42 | HHI.PR ---
Subjective Remarks No acute complaints. No change in clinical status. Objective Vitals Vital Signs Date Time Temp Pulse Resp B/P Pulse Ox O2 Delivery O2 Flow Rate FiO2 10/09/16 08:00 99.0 65 16 115/64 95 10/09/16 05:21 16 10/08/16 22:24 16 10/08/16 20:00 99.0 64 18 130/60 96 I/O 10/08/16 10/08/16 10/08/16 10/09/16 10/09/16 10/09/16 07:00 15:00 23:00 07:00 15:00 23:00 Intake Total 240 ml 320 ml 400 ml Balance 240 ml 320 ml 400 ml Intake Oral 240 ml 320 ml 400 ml # Voids 1 2 # Bowel Movements 0 0 Objective Remarks GENERAL: Pleasant well-nourished, well-developed patient in no apparent distress. CARDIOVASCULAR: Regular rate and rhythm. RESPIRATORY: No accessory muscle use. CTAB. MUSCULOSKELETAL: Fracture boot right lower extremity. 2+ right DP pulse. NEUROLOGICAL: Awake and alert. Normal speech. PSYCHIATRIC: Appropriate mood and affect; insight and judgment normal. Procedures 08/03: Removal broken hardware from right tibia and fibula, open treatment of right tibia and fibula nonunion, and iliac crest bone grafting with stem cell graft. Urinary Catheter: No Vascular Central Line Catheter: No A/P Problem List: (1) Cirrhosis of liver ICD Code: K74.60 Status: Chronic (2) Fracture of distal end of tibia with fibula ICD Code: S82.309A Status: Chronic (3) Thrombocytopenia ICD Code: D69.6 Status: Acute (4) Zinc deficiency ICD Code: E60 Status: Acute Assessment and Plan Right tibia-fibula nonunion, Orthopedics managing, last evaluated patient on 10/06/16. Status post ORIF revision 08/03/[address] Camacho. Fracture boot to be worn at all times except for showers and physical therapy. Strict nonweightbearing RLE 3 months from date of surgery. Pain control: Avoid acetaminophen use. Oxycodone 5 mg every 12 hours as needed for pain 4-10. COPD with shortness of breath and dyspnea, improved Chest x-ray did not indicate any acute abnormality Patient with good O2 saturations Continue incentive spirometry C. difficile colitis, treated Treated with oral Flagyl for total of 14 days Repeat C.diff test 12/21 negative. 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 Hemoglobin stable at 9.7 today. s/p multiple transfusion, S/p EGD 07/29/16, showed single non bleeding ulcer 3-7 mm in size gastric antrum. Continue Protonix. Thrombocytopenia: Stable at 53. 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 s/p transfusion prior to surgery Monitor periodically. Liver cirrhosis, Hepatic encephalopathy with hyperammonemia. Ammonia 45 on . Lactulose discontinued Ammonia level 08/27 improved to 40. Continue Rifaximin Hypertension, stable Continue propranolol and Aldactone. Numbness bilateral feet: Continued. H/o alcohol abuse. -B12 was 1449 on 07/27. Folate was normal. -RPR nonreactive. -TSH mildly elevated at 5.080. Free T3 normal and Free T4 1.47, relatively normal. -S/p Magnesium repletion. -Thiamine level at the lower limit of normal. -Gabapentin 300 mg tid. -MRI lumbar spine indicates normal conus, mild disc bulge at L4/L5 with moderate disc bulge at L5-S1 no etiology of bilateral lower extremity numbness Paronychia: Patient has skin changes around the nails to both feet and a few fingers that appears as chronic paronychia. No acute abscess is evident, but colleague noted some exudate and possible acute infection of great toes. Patient admits to picking under and biting her fingernails as well as having ingrown toenails. -S/p soaking in warm water with Epsom salt. -S/p triamcinolone acetonide 0.1% ointment. -Patient advised against biting her nails due to risk of infection. -Podiatry evaluated the patient on 09/09 and clipped all nails. Orders for daily mupirocin/bandaid to R hallux and 2nd toenail. States can f/u in office. Signed off. H/o ulcer and gastric varices: Continue Carafate. Nausea/fatigue: Resolved. -No elevation in WBC count. Zinc deficiency: Zinc level low at 41. Could be due to liver disease and could be contributing to paronychias. -Encouraged patient to increase dietary intake. -I spoke with pharmacist in regards to appropriate supplementation. Recommends zinc sulfate 220 mg po bid for one week and then lower to 220 mg po daily, and obtain new zinc level during that time of once daily dosing to assess improvement. Zinc sulfate started on 10/07/16. VIMAL: Resolved s/p IVF. -Avoid nephrotoxins. -Patient is advised against drinking soda and advised to orally hydrate with water. Mild Vitamin D deficiency: 25 OH-D level 28.6. -Continue Vitamin D3 600 units daily. Continue calcium carbonate 500 mg q12h as patient has fracture and is post menopausal. DVT prophylaxis: SCDs, pharmacological prophylaxis contraindicated. Discharge Planning manager marketing sales has found housing at the [facility] on ground floor. CM states we could assist with outpatient rehabilitation and transport assistance. manager marketing sales has called Ortho PA and addressed this option with him 10/06/16: Per ortho, if patient's room is confirmed and she has appropriate DME's , discharge may be considered. She will need follow-up x-rays in approximately 1 month. If discharged she will need to follow up in office. 10/07/16: Per CM: working on discharging the patient with PCP follow-up and outpatient rehabilitation at [address] [place] [address]. Patient to return to [facility]. CM to secure transport to and from scheduled appointments. 10/08/16: Orthopedics has cleared patient for discharge. I spoke with leather case finisher Panfilo Gill today who states he needs to get outpatient physical therapy order from orthopedics whom he has contacted in order to set patient up at outpatient rehabilitation. He states discharge is likely 2-2-17 once all needs are met. PT recommends shorter rolling walker. Patient has knee scooter at home. Alix Johnson Oct 09, 2016 11:42
[2016-10-09 20:00] VITALS: BP 109/64; PULSE 65; RESP 18; TEMP 98.8; O2SAT 95
[2016-10-09] MEDS: traZODone HCL 50 MG TAB PO SCH (20:36)
[2016-10-10] MEDS: ACETAMINOPHEN 325 MG TAB PO PRN ×4 (00:06→19:42)
[2016-10-10 08:00] VITALS: BP 115/74; PULSE 80; RESP 16; TEMP 97.8; O2SAT 94
[2016-10-10] MEDS: ZINC SULFATE 220 MG CAP PO SCH ×2 (08:44→21:12)
[2016-10-10] MEDS: CALCIUM CARBONATE 1.25 GM (CA 500 MG) TAB PO SCH ×2 (08:44→21:13)
[2016-10-10] MEDS: GABAPENTIN 300 MG CAP PO SCH ×3 (08:44→18:32)
[2016-10-10] MEDS: CHOLECALCIFEROL (VIT D3) 400 UNIT TAB PO SCH (08:44)
[2016-10-10] MEDS: POTASSIUM CHLORIDE 10 MEQ CONTROLLED RELEASE TAB PO SCH (08:45)
[2016-10-10] MEDS: RIFAXIMIN 550 MG TAB PO SCH ×2 (08:45→21:12)
[2016-10-10] MEDS: PANTOPRAZOLE SOD 40 MG DELAYED RELEASE TAB PO SCH ×2 (08:45→21:13)
[2016-10-10] MEDS: SPIRONOLACTONE 25 MG TAB PO SCH (08:45)
[2016-10-10] MEDS: MUPIROCIN 2% OINT 22 GM TUBE TOPICAL SCH ×2 (08:48→21:16)
[2016-10-10] MEDS: PROPRANOLOL HCL 20 MG TAB PO SCH ×2 (08:51→21:12)
--- NOTE | 2016-10-10 17:29 | HHI.PR ---
Subjective Remarks In follow-up for leg fracture. Doing well. Plans for discharge appear to be to the [facility] later this week. Care plan discussed with Charu MEDELLIN Objective Vitals Vital Signs Date Time Temp Pulse Resp B/P Pulse Ox O2 Delivery O2 Flow Rate FiO2 10/10/16 17:05 14 10/10/16 10:19 14 10/10/16 08:00 97.8 80 16 115/74 94 10/09/16 20:00 98.8 65 18 109/64 95 I/O 10/09/16 10/09/16 10/09/16 10/10/16 10/10/16 10/10/16 07:00 15:00 23:00 07:00 15:00 23:00 Intake Total 480 ml 240 ml 660 ml Balance 480 ml 240 ml 660 ml Intake Oral 480 ml 240 ml 660 ml # Voids 2 3 2 2 # Bowel Movements 0 0 1 Objective Remarks GENERAL: This is a well-nourished, well-developed patient, in no apparent distress. CARDIOVASCULAR: Regular rate and rhythm without murmurs, gallops, or rubs. RESPIRATORY: Clear to auscultation. Breath sounds equal bilaterally. No wheezes , rales, or rhonchi. GASTROINTESTINAL: Abdomen soft, non-tender, nondistended. Normal active bowel sounds MUSCULOSKELETAL: Lower extremity casts, Extremities without clubbing, cyanosis, or edema. NEURO: Alert & Oriented x4 to person, place, time, situation. Moves all ext x4 Procedures 08/03: Removal broken hardware from right tibia and fibula, open treatment of right tibia and fibula nonunion, and iliac crest bone grafting with stem cell graft. A/P Problem List: (1) Cirrhosis of liver ICD Code: K74.60 Status: Chronic (2) Fracture of distal end of tibia with fibula ICD Code: S82.309A Status: Chronic (3) Thrombocytopenia ICD Code: D69.6 Status: Acute (4) Zinc deficiency ICD Code: E60 Status: Acute Assessment and Plan patient with orthopedic injuries preventing her a safe discharge Doing better [facility] Discharge Planning Patient will need continued physical therapy and is unsafe discharge at this time. Gloria Matthews MD Oct 10, 2016 17:29
[2016-10-10 20:00] VITALS: BP 104/63; PULSE 61; RESP 18; TEMP 97.9; O2SAT 97
[2016-10-10] MEDS: traZODone HCL 50 MG TAB PO SCH (21:13)
[2016-10-11 08:20] VITALS: BP 128/65; PULSE 64; RESP 18; TEMP 97.8; O2SAT 98
[2016-10-11] MEDS: PANTOPRAZOLE SOD 40 MG DELAYED RELEASE TAB PO SCH ×2 (08:28→20:16)
[2016-10-11] MEDS: ZINC SULFATE 220 MG CAP PO SCH ×2 (08:28→20:16)
[2016-10-11] MEDS: CHOLECALCIFEROL (VIT D3) 400 UNIT TAB PO SCH (08:28)
[2016-10-11] MEDS: GABAPENTIN 300 MG CAP PO SCH ×3 (08:29→16:51)
[2016-10-11] MEDS: ACETAMINOPHEN 325 MG TAB PO PRN ×4 (08:29→20:21)
[2016-10-11] MEDS: CALCIUM CARBONATE 1.25 GM (CA 500 MG) TAB PO SCH ×2 (08:30→20:16)
[2016-10-11] MEDS: SPIRONOLACTONE 25 MG TAB PO SCH (08:30)
[2016-10-11] MEDS: RIFAXIMIN 550 MG TAB PO SCH ×2 (08:30→20:17)
[2016-10-11] MEDS: POTASSIUM CHLORIDE 10 MEQ CONTROLLED RELEASE TAB PO SCH (08:30)
[2016-10-11] MEDS: PROPRANOLOL HCL 20 MG TAB PO SCH ×2 (08:31→20:16)
[2016-10-11] MEDS: MUPIROCIN 2% OINT 22 GM TUBE TOPICAL SCH ×2 (09:00→20:21)
--- NOTE | 2016-10-11 11:46 | HHI.PR ---
Subjective Remarks Patient discussed with nurse who states the patient was upset because the SAD PERSONS assessment was done. The patient had a SAD score of 5 on 10/08 which improved to a 2 on 10/10. Patient states she had been upset at that time because it was her daughter's 13th birthday and her ex- would not bring her to the hospital. She states she uses the word "depressed", but stated she was angry. Patient states she is not suicidal. She is concerned this will interfere with her discharge. I explained to the patient that nursing is required to assess her for her own safety. Objective Vitals Vital Signs Date Time Temp Pulse Resp B/P Pulse Ox O2 Delivery O2 Flow Rate FiO2 10/11/16 09:33 14 10/11/16 09:29 14 10/11/16 08:20 97.8 64 18 128/65 98 10/10/16 20:00 97.9 61 18 104/63 97 I/O 10/10/16 10/10/16 10/10/16 10/11/16 10/11/16 10/11/16 07:00 15:00 23:00 07:00 15:00 23:00 Intake Total 240 ml 660 ml 800 ml 220 ml Balance 240 ml 660 ml 800 ml 220 ml Intake Oral 240 ml 660 ml 800 ml 220 ml # Voids 2 2 3 1 # Bowel Movements 0 1 0 Objective Remarks GENERAL: Pleasant well-nourished, well-developed patient in no apparent distress. CARDIOVASCULAR: Regular rate and rhythm. RESPIRATORY: No accessory muscle use. CTAB. MUSCULOSKELETAL: Fracture boot right lower extremity. 2+ right DP pulse. NEUROLOGICAL: Awake and alert. Normal speech. PSYCHIATRIC: Appropriate mood and affect; insight and judgment normal. Procedures 08/03: Removal broken hardware from right tibia and fibula, open treatment of right tibia and fibula nonunion, and iliac crest bone grafting with stem cell graft. Urinary Catheter: No Vascular Central Line Catheter: No A/P Problem List: (1) Cirrhosis of liver ICD Code: K74.60 Status: Chronic (2) Fracture of distal end of tibia with fibula ICD Code: S82.309A Status: Chronic (3) Thrombocytopenia ICD Code: D69.6 Status: Acute (4) Zinc deficiency ICD Code: E60 Status: Acute Assessment and Plan Right tibia-fibula nonunion, Orthopedics managing, last evaluated patient on 10/06/16. Status post ORIF revision 08/03/[address] Camacho. Fracture boot to be worn at all times except for showers and physical therapy. Strict nonweightbearing RLE 3 months from date of surgery. Pain control: Avoid acetaminophen use. Oxycodone 5 mg every 12 hours as needed for pain 4-10. COPD with shortness of breath and dyspnea, improved Chest x-ray did not indicate any acute abnormality Patient with good O2 saturations Continue incentive spirometry C. difficile colitis, treated Treated with oral Flagyl for total of 14 days Repeat C.diff test 09/01 negative. 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 Hemoglobin stable at 9.7 today. s/p multiple transfusion, S/p EGD 07/29/16, showed single non bleeding ulcer 3-7 mm in size gastric antrum. Continue Protonix. Thrombocytopenia: Stable at 53. 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 s/p transfusion prior to surgery Monitor periodically. Liver cirrhosis, Hepatic encephalopathy with hyperammonemia. Ammonia 45 on . Lactulose discontinued Ammonia level 08/27 improved to 40. Continue Rifaximin Hypertension, stable Continue propranolol and Aldactone. Numbness bilateral feet: Continued. H/o alcohol abuse. -B12 was 1449 on 07/27. Folate was normal. -RPR nonreactive. -TSH mildly elevated at 5.080. Free T3 normal and Free T4 1.47, relatively normal. -S/p Magnesium repletion. -Thiamine level at the lower limit of normal. -Gabapentin 300 mg tid. -MRI lumbar spine indicates normal conus, mild disc bulge at L4/L5 with moderate disc bulge at L5-S1 no etiology of bilateral lower extremity numbness Paronychia: Patient has skin changes around the nails to both feet and a few fingers that appears as chronic paronychia. No acute abscess is evident, but colleague noted some exudate and possible acute infection of great toes. Patient admits to picking under and biting her fingernails as well as having ingrown toenails. -S/p soaking in warm water with Epsom salt. -S/p triamcinolone acetonide 0.1% ointment. -Patient advised against biting her nails due to risk of infection. -Podiatry evaluated the patient on 09/09 and clipped all nails. Orders for daily mupirocin/bandaid to R hallux and 2nd toenail. States can f/u in office. Signed off. H/o ulcer and gastric varices: Continue Carafate. Nausea/fatigue: Resolved. -No elevation in WBC count. Zinc deficiency: Zinc level low at 41. Could be due to liver disease and could be contributing to paronychias. -Encouraged patient to increase dietary intake. -I spoke with pharmacist in regards to appropriate supplementation. Recommends zinc sulfate 220 mg po bid for one week and then lower to 220 mg po daily, and obtain new zinc level during that time of once daily dosing to assess improvement. Zinc sulfate started on 10/07/16. VIMAL: Resolved s/p IVF. -Avoid nephrotoxins. -Patient is advised against drinking soda and advised to orally hydrate with water. Mild Vitamin D deficiency: 25 OH-D level 28.6. -Continue Vitamin D3 600 units daily. Continue calcium carbonate 500 mg q12h as patient has fracture and is post menopausal. DVT prophylaxis: SCDs, pharmacological prophylaxis contraindicated. Depressed state this weekend appears to have been situational. Patient's mood is normal today. Nursing to reassess as needed. No interventions necessary at this time. Discharge Planning manager loss prevention has found housing at the [facility] on ground floor. CM states we could assist with outpatient rehabilitation and transport assistance. manager loss prevention has called Ever [facility] and addressed this option with him 10/06/16: Per ortho, if patient's room is confirmed and she has appropriate DME's , discharge may be considered. She will need follow-up x-rays in approximately 1 month. If discharged she will need to follow up in office. 10/07/16: Per CM: working on discharging the patient with PCP follow-up and outpatient rehabilitation at [address] [place] [address]. Patient to return to [facility]. CM to secure transport to and from scheduled appointments. 10/08/16: Orthopedics has cleared patient for discharge. I spoke with top case assembler Panfilo Gill today who states he needs to get outpatient physical therapy order from orthopedics whom he has contacted in order to set patient up at outpatient rehabilitation. He states discharge is likely 2-2-17 once all needs are met. PT recommends shorter rolling walker. Patient has knee scooter at home. Alix Johnson Oct 11, 2016 11:46
[2016-10-11 20:00] VITALS: BP 120/69; PULSE 59; RESP 18; TEMP 97.1; O2SAT 99
[2016-10-11] MEDS: traZODone HCL 50 MG TAB PO SCH (20:15)
[2016-10-12] MEDS: ACETAMINOPHEN 325 MG TAB PO PRN ×3 (05:30→14:58)
[2016-10-12 08:00] VITALS: BP 105/75; PULSE 65; RESP 16; TEMP 96.9; O2SAT 96
[2016-10-12] MEDS: CALCIUM CARBONATE 1.25 GM (CA 500 MG) TAB PO SCH ×2 (08:57→21:09)
[2016-10-12] MEDS: POTASSIUM CHLORIDE 10 MEQ CONTROLLED RELEASE TAB PO SCH (08:57)
[2016-10-12] MEDS: ZINC SULFATE 220 MG CAP PO SCH ×2 (08:57→21:08)
[2016-10-12] MEDS: CHOLECALCIFEROL (VIT D3) 400 UNIT TAB PO SCH (08:57)
[2016-10-12] MEDS: RIFAXIMIN 550 MG TAB PO SCH ×2 (08:58→21:10)
[2016-10-12] MEDS: PROPRANOLOL HCL 20 MG TAB PO SCH ×2 (08:58→21:10)
[2016-10-12] MEDS: PANTOPRAZOLE SOD 40 MG DELAYED RELEASE TAB PO SCH ×2 (08:58→21:09)
[2016-10-12] MEDS: GABAPENTIN 300 MG CAP PO SCH ×3 (08:58→17:21)
[2016-10-12] MEDS: SPIRONOLACTONE 25 MG TAB PO SCH (08:58)
[2016-10-12] MEDS: MUPIROCIN 2% OINT 22 GM TUBE TOPICAL SCH ×2 (08:59→21:11)
--- NOTE | 2016-10-12 09:51 | HHI.PR ---
Subjective Remarks Patient seen and examined today. Patient denies any new complaints. No change in clinical status. Awaiting case management discharge planning Objective Vitals Vital Signs Date Time Temp Pulse Resp B/P Pulse Ox O2 Delivery O2 Flow Rate FiO2 10/11/16 20:00 97.1 59 18 120/69 99 10/11/16 17:52 16 I/O 10/11/16 10/11/16 10/11/16 10/12/16 10/12/16 10/12/16 07:00 15:00 23:00 07:00 15:00 23:00 Intake Total 220 ml 480 ml Balance 220 ml 480 ml Intake Oral 220 ml 480 ml # Voids 1 4 4 # Bowel Movements 0 0 Objective Remarks GENERAL: Well-developed, well-nourished, in no acute distress. alert and orientated HEENT: Head is normocephalic without any lesions or masses noted. Facial features are symmetric. Eyes: Extraocular muscles are intact. Conjunctivae were clear NECK: Trachea midline no deviation., CARDIAC: Regular rhythm, regular rate. S1/S2 are heard. No murmurs gallops or rubs. LUNGS: Clear to auscultation bilaterally. No wheeze, rhonchi or rales. No use of accessory muscles on inspiration or expiration. ABDOMEN: Soft, nontender. Nondistended. Bowel sounds heard in all 4 quadrants. No organomegaly or masses. Negative rebound, negative guarding EXTREMITIES: No edema, pulses are equal bilaterally. No cyanosis or clubbing. Right lower extremity in splint NEUROLOGY: Mood and affect appear appropriate. Cranial nerves II through XII grossly intact. Moving all extremities, speech is clear RIGHT LOWER EXTREMITY: Right great toe does have medial nail abnormality with erythema, edema, exudate. LEFT LOWER EXTREMITY: Left great toe also has nail changes medially and laterally indicating possible paronychia and redness, infection Procedures 08/03: Removal broken hardware from right tibia and fibula, open treatment of right tibia and fibula nonunion, and iliac crest bone grafting with stem cell graft. Urinary Catheter: No Vascular Central Line Catheter: No A/P Assessment and Plan Right tibia-fibula nonunion, Orthopedic managing, Status post ORIF revision 08/03/[address] Camacho. Last evaluated 09/09/16 Nonweightbearing for 3 months from surgery, 08/03/16 [facility] consulted to remove the splint and place fracture boot Pain control OxyContin 5 mg every 12 hours as needed for pain, last changed 09/27/16 Acute depression due to family situations Original SAD score 5 on 10/08, and has improved to a 4 Bilateral great toe infection, paronychia Consulted podiatry who indicated and wrote orders for daily Bactroban cream and Band-Aid. Recommended outpatient follow-up Numbness bilateral feet: Persistent Patient with a workup with RPR, thyroid functions, BMP which appear to be relatively unremarkable Patient being treated for hypomagnesemia, without improvement of her numbness MRI lumbar spine indicates normal conus, mild disc bulge at L4/L5 with moderate disc bulge at L5-S1 no etiology of bilateral extremity numbness Continue Gabapentin 300 mg bid. COPD with shortness of breath and dyspnea, improved Chest x-ray did not indicate any acute abnormality Patient with good O2 saturations Continue incentive spirometry C. difficile colitis, treated Treated with oral Flagyl for total of 14 days Continue monitor stool output to see if repeat culture needs to be performed Repeat C. 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 Hemoglobin stable s/p multiple transfusion, S/p EGD 07/29/16, showed single non bleeding ulcer 3-7 mm in size gastric antrum. Continue Protonix, Patient requesting hemoglobin to be rechecked Thrombocytopenia, stable Likely secondary to hypersplenism per hematology. s/p transfusion prior to surgery Liver cirrhosis, Hepatic encephalopathy with hyperammonemia, resolved Lactulose discontinued Continue rifaximin Hypertension, patient with episodes of hypotension and bradycardia propanolol 40 mg twice daily Aldactone 25 mg daily DVT prophylaxis: SCDs, pharmacological prophylaxis contraindicated Discharge Planning Case management for discharge planning. Orthopedic has cleared the patient be discharged. Case management indicates patient can be discharged in a couple days. Isaac Leal Oct 12, 2016 09:51
[2016-10-12 20:00] VITALS: BP 121/66; PULSE 59; RESP 16; TEMP 98.4; O2SAT 96
[2016-10-12] MEDS: traZODone HCL 50 MG TAB PO SCH (21:09)
[2016-10-13] MEDS: ACETAMINOPHEN 325 MG TAB PO PRN ×4 (05:39→21:11)
[2016-10-13 08:00] VITALS: BP 104/64; PULSE 63; RESP 17; TEMP 96.8; O2SAT 95
[2016-10-13 08:03] LABS: AUTOMATED NEUTROPHIL # 1.3 TH/MM3 (1.8-7.7); BASOPHIL # 0.1 TH/MM3 (0-0.2); BASOPHIL % 1.8 % (0.0-2.0); EOSINOPHIL # 0.2 TH/MM3 (0-0.4); EOSINOPHIL % 6.8 % (0.0-4.0); HEMATOCRIT 30.5 % (35.0-46.0); LYMPH % 41.2 % (9.0-44.0); LYMPHOCYTE # 1.2 TH/MM3 (1.0-4.8); MEAN CELL VOLUME 91.3 FL (80.0-100.0); MEAN CORPUSCULAR HEMOGLOBIN 30.1 PG (27.0-34.0); MONO % 11.5 % (0.0-8.0); NEUT % 38.7 % (16.0-70.0); PLATELET COUNT 75 TH/MM3 (150-450); RED BLOOD COUNT 3.34 MIL/MM3 (4.00-5.30); RED CELL DISTRIBUTION WIDTH 14.5 % (11.6-17.2); WHITE BLOOD COUNT 3.2 TH/MM3 (4.0-11.0)
[2016-10-13 08:06] LABS: HEMO FLAGS AUTO DIFF
[2016-10-13] MEDS: SPIRONOLACTONE 25 MG TAB PO SCH (08:22)
[2016-10-13] MEDS: ZINC SULFATE 220 MG CAP PO SCH ×2 (08:22→21:10)
[2016-10-13] MEDS: CALCIUM CARBONATE 1.25 GM (CA 500 MG) TAB PO SCH ×2 (08:22→21:10)
[2016-10-13] MEDS: POTASSIUM CHLORIDE 10 MEQ CONTROLLED RELEASE TAB PO SCH (08:22)
[2016-10-13] MEDS: CHOLECALCIFEROL (VIT D3) 400 UNIT TAB PO SCH (08:22)
[2016-10-13] MEDS: PROPRANOLOL HCL 20 MG TAB PO SCH ×2 (08:22→21:10)
[2016-10-13] MEDS: RIFAXIMIN 550 MG TAB PO SCH ×2 (08:22→21:11)
[2016-10-13] MEDS: PANTOPRAZOLE SOD 40 MG DELAYED RELEASE TAB PO SCH ×2 (08:22→21:10)
[2016-10-13] MEDS: GABAPENTIN 300 MG CAP PO SCH ×3 (08:22→16:49)
[2016-10-13] MEDS: MUPIROCIN 2% OINT 22 GM TUBE TOPICAL SCH ×2 (08:25→21:12)
--- NOTE | 2016-10-13 08:26 | HHI.PR ---
Subjective Remarks Patient seen and examined today. Patient denies any new complaints. No change in clinical status. Awaiting case management for discharge planning. Objective Vitals Vital Signs Date Time Temp Pulse Resp B/P Pulse Ox O2 Delivery O2 Flow Rate FiO2 10/12/16 20:00 98.4 59 16 121/66 96 10/12/16 16:12 14 10/12/16 10:10 14 I/O 10/12/16 10/12/16 10/12/16 10/13/16 10/13/16 10/13/16 07:00 15:00 23:00 07:00 15:00 23:00 Intake Total 360 ml 800 ml 350 ml Output Total 2 ml Balance 358 ml 800 ml 350 ml Intake Oral 360 ml 800 ml 350 ml Output Urine Total 2 ml # Voids 4 3 2 # Bowel Movements 0 1 Result Diagram: 10/13/16 0735 Objective Remarks GENERAL: Well-developed, well-nourished, in no acute distress. alert and orientated HEENT: Head is normocephalic without any lesions or masses noted. Facial features are symmetric. Eyes: Extraocular muscles are intact. Conjunctivae were clear NECK: Trachea midline no deviation., CARDIAC: Regular rhythm, regular rate. S1/S2 are heard. No murmurs gallops or rubs. LUNGS: Clear to auscultation bilaterally. No wheeze, rhonchi or rales. No use of accessory muscles on inspiration or expiration. ABDOMEN: Soft, nontender. Nondistended. Bowel sounds heard in all 4 quadrants. No organomegaly or masses. Negative rebound, negative guarding EXTREMITIES: No edema, pulses are equal bilaterally. No cyanosis or clubbing. Right lower extremity in splint NEUROLOGY: Mood and affect appear appropriate. Cranial nerves II through XII grossly intact. Moving all extremities, speech is clear RIGHT LOWER EXTREMITY: Right great toe does have medial nail abnormality with erythema, edema, exudate. LEFT LOWER EXTREMITY: Left great toe also has nail changes medially and laterally indicating possible paronychia and redness, infection Procedures 08/03: Removal broken hardware from right tibia and fibula, open treatment of right tibia and fibula nonunion, and iliac crest bone grafting with stem cell graft. Urinary Catheter: No Vascular Central Line Catheter: No A/P Assessment and Plan Right tibia-fibula nonunion, Orthopedic managing, Status post ORIF revision 08/03/[address] Camacho. Last evaluated 09/09/16 Nonweightbearing for 3 months from surgery, 08/03/16 [facility] consulted to remove the splint and place fracture boot Pain control OxyContin 5 mg every 12 hours as needed for pain, last changed 09/27/16 Acute depression due to family situations Original SAD score 5 on 10/08, and has improved to a 4 Bilateral great toe infection, paronychia Consulted podiatry who indicated and wrote orders for daily Bactroban cream and Band-Aid. Recommended outpatient follow-up Numbness bilateral feet: Persistent Patient with a workup with RPR, thyroid functions, BMP which appear to be relatively unremarkable Patient being treated for hypomagnesemia, without improvement of her numbness MRI lumbar spine indicates normal conus, mild disc bulge at L4/L5 with moderate disc bulge at L5-S1 no etiology of bilateral extremity numbness Continue Gabapentin 300 mg bid. COPD with shortness of breath and dyspnea, improved Chest x-ray did not indicate any acute abnormality Patient with good O2 saturations Continue incentive spirometry C. difficile colitis, treated Treated with oral Flagyl for total of 14 days Continue monitor stool output to see if repeat culture needs to be performed Repeat C. 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 Hemoglobin stable s/p multiple transfusion, S/p EGD 07/29/16, showed single non bleeding ulcer 3-7 mm in size gastric antrum. Continue Protonix, Patient requesting hemoglobin to be rechecked Thrombocytopenia, stable Likely secondary to hypersplenism per hematology. s/p transfusion prior to surgery Liver cirrhosis, Hepatic encephalopathy with hyperammonemia, resolved Lactulose discontinued Continue rifaximin Hypertension, patient with episodes of hypotension and bradycardia propanolol 40 mg twice daily Aldactone 25 mg daily DVT prophylaxis: SCDs, pharmacological prophylaxis contraindicated Discharge Planning Case management for discharge planning. Orthopedic has cleared the patient be discharged. Case management indicates patient can be discharged on 10/14/16 Isaac Leal Oct 13, 2016 08:26
[2016-10-13 08:51] LABS: PLATELET ESTIMATE SMEAR LOW (NORMAL); PLATELET MORPHOLOGY NORMAL (NORMAL); SCAN/DIFF AUTO DIFF CONFIRMED
[2016-10-13 20:00] VITALS: BP 117/79; PULSE 80; RESP 18; TEMP 98.2; O2SAT 95
[2016-10-13] MEDS: traZODone HCL 50 MG TAB PO SCH (21:11)
[2016-10-14 07:15] VITALS: BP 114/75; PULSE 62; RESP 20; TEMP 96.5; O2SAT 94
--- NOTE | 2016-10-14 07:26 | PD.ORT.PN ---
Subjective Subjective Remarks Pain controlled. No new complaints Objective Vitals Vital Signs Date Time Temp Pulse Resp B/P Pulse Ox O2 Delivery O2 Flow Rate FiO2 10/13/16 20:00 98.2 80 18 117/79 95 10/13/16 17:56 16 10/13/16 08:00 96.8 63 17 104/64 95 I/O 10/13/16 10/13/16 10/13/16 10/14/16 10/14/16 10/14/16 07:00 15:00 23:00 07:00 15:00 23:00 Intake Total 350 ml 240 ml 440 ml 120 ml Balance 350 ml 240 ml 440 ml 120 ml Intake Oral 350 ml 240 ml 440 ml 120 ml # Voids 2 2 2 1 # Bowel Movements 0 0 0 Result Diagram: 10/13/16 0735 Imaging Last 72 hours Impressions Ankle X-Ray 08/03/16 0000 Signed Impressions: Service Date/Time: Wednesday, August 03, 2016 16:54 - CONCLUSION: Status post ORIF of distal right tibial and fibular fractures resulting in satisfactory anatomic alignment. Edis Plascencia MD Objective Remarks Right lower extremity: Iliac crest bone graft site healed no pain with hip or knee range of motion. Examination of the ankle reveals surgical incision is completely healed. She has intact sensation on her toes. Ankle range of motion is 10 dorsiflexion and 40 of plantarflexion Assessment & Plan Assessment and Plan 1) Right Distal Tibia nonunion with removal of hardware, open reduction internal fixation, stem cells and iliac crest bone graft - 08/03/16 strict NWB on RLE - 3 months from surgery fracture boot to be worn at all times except for showers and physical therapy Discharge today to senior living house. If her room is confirmed and she has appropriate DME's, . she will need follow-up x-rays in approximately 1 month. Follow-up with Dr. Rajput or EMI in 3 weeks KIRK ROCA PA-C Oct 14, 2016 07:26
[2016-10-14] MEDS: CHOLECALCIFEROL (VIT D3) 400 UNIT TAB PO SCH (07:38)
[2016-10-14] MEDS: SPIRONOLACTONE 25 MG TAB PO SCH (07:38)
[2016-10-14] MEDS: ZINC SULFATE 220 MG CAP PO SCH (07:38)
[2016-10-14] MEDS: CALCIUM CARBONATE 1.25 GM (CA 500 MG) TAB PO SCH (07:39)
[2016-10-14] MEDS: PROPRANOLOL HCL 20 MG TAB PO SCH (07:39)
[2016-10-14] MEDS: ACETAMINOPHEN 325 MG TAB PO PRN ×2 (07:39→11:46)
[2016-10-14] MEDS: RIFAXIMIN 550 MG TAB PO SCH (07:39)
[2016-10-14] MEDS: GABAPENTIN 300 MG CAP PO SCH ×2 (07:39→11:46)
[2016-10-14] MEDS: PANTOPRAZOLE SOD 40 MG DELAYED RELEASE TAB PO SCH (07:39)
[2016-10-14] MEDS: POTASSIUM CHLORIDE 10 MEQ CONTROLLED RELEASE TAB PO SCH (07:39)
[2016-10-14] MEDS: MUPIROCIN 2% OINT 22 GM TUBE TOPICAL SCH (09:00)
[2016-10-14] MEDS ORDERED: OYST500T11 PO (09:49)
[2016-10-14] MEDS ORDERED: NEUR300C PO (09:49)
[2016-10-14] MEDS ORDERED: VITD400 PO (09:49)
[2016-10-14] MEDS ORDERED: PROP20TA3 PO (09:49)
[2016-10-14] MEDS ORDERED: WALKER WHEELS/F1 MIS (09:50)
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
[2016-10-14 12:50] VITALS: RESP 14
== END 2016-10-14 13:42 | disposition home or self-care (01) | DRG 981 ==
LOC: HSDC 05:20 → EDSTATUS 07:30 → N07B 16:52 → OBSVTOIN 07-28 08:25 → PH5A 08-18 20:50
PROVIDERS: ADMIT Family Medicine; ATTEND Family Medicine
PROC: 30233R1 Transfusion of Nonautologous Platelets into Peripheral Vein, Percutaneous Approach (ICD-10-PCS; 2016-07-27)
PROC: 30233P1 Transfusion of Nonautologous Frozen Red Cells into Peripheral Vein, Percutaneous Approach (ICD-10-PCS; 2016-07-27)
PROC: 0DB68ZX Excision of Stomach, Via Natural or Artificial Opening Endoscopic, Diagnostic (ICD-10-PCS; 2016-07-28)
PROC: 0QHJ04Z Insertion of Internal Fixation Device into Right Fibula, Open Approach (ICD-10-PCS; 2016-08-03)
PROC: 0QUG07Z Supplement Right Tibia with Autologous Tissue Substitute, Open Approach (ICD-10-PCS; 2016-08-03)
PROC: 0QUJ07Z Supplement Right Fibula with Autologous Tissue Substitute, Open Approach (ICD-10-PCS; 2016-08-03)
PROC: 0QB20ZZ Excision of Right Pelvic Bone, Open Approach (ICD-10-PCS; 2016-08-03)
PROC: 0QBG0ZZ Excision of Right Tibia, Open Approach (ICD-10-PCS; 2016-08-03)
PROC: 0QBJ0ZZ Excision of Right Fibula, Open Approach (ICD-10-PCS; 2016-08-03)
PROC: 0QPG04Z Removal of Internal Fixation Device from Right Tibia, Open Approach (ICD-10-PCS; 2016-08-03)
PROC: 0QPJ04Z Removal of Internal Fixation Device from Right Fibula, Open Approach (ICD-10-PCS; 2016-08-03)
PROC: 0QHG04Z Insertion of Internal Fixation Device into Right Tibia, Open Approach (ICD-10-PCS; principal; 2016-08-03 14:30)
PROC: 0HBRXZZ Excision of Toe Nail, External Approach (ICD-10-PCS; 2016-09-09)
PROC: 0HBRXZZ Excision of Toe Nail, External Approach (ICD-10-PCS; 2016-09-09)
PROC: 0HBRXZZ Excision of Toe Nail, External Approach (ICD-10-PCS; 2016-09-09)
PROC: 0HBRXZZ Excision of Toe Nail, External Approach (ICD-10-PCS; 2016-09-09)
PROC: 0HBRXZZ Excision of Toe Nail, External Approach (ICD-10-PCS; 2016-09-09)
PROC: 0HBRXZZ Excision of Toe Nail, External Approach (ICD-10-PCS; 2016-09-09)
PROC: 0HBRXZZ Excision of Toe Nail, External Approach (ICD-10-PCS; 2016-09-09)
PROC: 0HBRXZZ Excision of Toe Nail, External Approach (ICD-10-PCS; 2016-09-09)
PROC: 0HBRXZZ Excision of Toe Nail, External Approach (ICD-10-PCS; 2016-09-09)
PROC: 0HBRXZZ Excision of Toe Nail, External Approach (ICD-10-PCS; 2016-09-09)
DX: D64.9 Anemia, unspecified (principal); G93.40 Encephalopathy, unspecified; A41.9 Sepsis, unspecified organism; N17.9 Acute kidney failure, unspecified; A04.7 Enterocolitis due to Clostridium difficile; D69.6 Thrombocytopenia, unspecified; I95.9 Hypotension, unspecified; K25.9 Gastric ulcer, unspecified as acute or chronic, without hemorrhage or perforation; E72.20 Disorder of urea cycle metabolism, unspecified; S82.831K Other fracture of upper and lower end of right fibula, subsequent encounter for closed fracture with nonunion; S82.301K Unspecified fracture of lower end of right tibia, subsequent encounter for closed fracture with nonunion; J98.11 Atelectasis; R16.1 Splenomegaly, not elsewhere classified; T84.116D Breakdown (mechanical) of internal fixation device of bone of right lower leg, subsequent encounter; V89.2XXD Person injured in unspecified motor-vehicle accident, traffic, subsequent encounter; B18.2 Chronic viral hepatitis C; K74.4 Secondary biliary cirrhosis; D50.9 Iron deficiency anemia, unspecified; I10 Essential (primary) hypertension; E60 Dietary zinc deficiency; E87.6 Hypokalemia; K72.90 Hepatic failure, unspecified without coma; L60.8 Other nail disorders; Z87.891 Personal history of nicotine dependence; E83.42 Hypomagnesemia; R60.0 Localized edema; R20.0 Anesthesia of skin; E55.9 Vitamin D deficiency, unspecified; R00.1 Bradycardia, unspecified; R11.0 Nausea
CPT/HCPCS: 36430; 71020; 72148; 73600; 73610; 76000; 76770; 76937; 80048; 80053; 82140; 82272; 82306; 82607; 82668; 82728; 82746; 83010; 83540; 83550; 83615; 83735; 83880; 84155; 84425; 84439; 84443; 84481; 84630; 85007; 85014; 85018; 85025; 85027; 85044; 85384; 85610; 85730; 86592; 86850; 86880; 86900; 86901; 86920; 87015; 87040; 87070; 87102; 87116; 87176; 87205; 87206; 87493; 88305; 88312; 93971; 94150; 94640; 94664; C1713; C9113; J0690; J1580; J1756; J2270; J2405; J3010; J3370; J3430; J3475; J3480; J7030; J7050; J7120; J7613; L2114; P9016; P9035

== ENCOUNTER 2016-11-06 19:14 | Inpatient (IN) | payer MEDICAID ==
[~2016-11-06] VITALS: Ht 167.6 cm; Wt 68.5 kg
[~2016-11-06 19:14] MED LIST changes: -LACT10SO PO; +NEUR300C PO; -OMEP10CA PO; +OYST500T11 PO; -VASO10TA8 PO; +VITD400 PO; +WALKER WHEELS/F1 MIS
[2016-11-06 19:20] VITALS: BP 204/89; PULSE 61; RESP 17; TEMP 98.2; O2SAT 100
[2016-11-06] MEDS ORDERED: SODIUM CHLOR 0.9% 1000 ML INJ 1,000 ML IV SCH (19:28)
[2016-11-06] MEDS ORDERED: MORPHINE SULFATE 4 MG/ML INJ IV PUSH ONE ×2 (19:30→21:15)
[2016-11-06] MEDS ORDERED: SODIUM CHLORIDE 0.9% FLUSH 5 ML FLUSH IVF PRN (19:30)
[2016-11-06] MEDS ORDERED: FAMOTIDINE 20 MG/2 ML VIAL IV PUSH ONE (19:30)
[2016-11-06] MEDS ORDERED: ONDANSETRON HCL 4 MG/2 ML VIAL IVP ONE (19:30)
[2016-11-06 19:48] VITALS: O2SAT 100
[2016-11-06 19:57] LABS: AUTOMATED NEUTROPHIL # 3.1 TH/MM3 (1.8-7.7); BASOPHIL # 0.3 TH/MM3 (0-0.2); BASOPHIL % 5.5 % (0.0-2.0); EOSINOPHIL # 0.3 TH/MM3 (0-0.4); EOSINOPHIL % 5.5 % (0.0-4.0); HEMATOCRIT 27.5 % (35.0-46.0); HEMO FLAGS DIFF FINAL; LYMPHOCYTE # 1.6 TH/MM3 (1.0-4.8); MEAN CORPUSCULAR HEMOGLOBIN 32.2 PG (27.0-34.0); MEAN CORPUSCULAR HGB CONC 34.7 % (32.0-36.0); MONO % 7.7 % (0.0-8.0); NEUT % 53.3 % (16.0-70.0); PLATELET COUNT 105 TH/MM3 (150-450); RED BLOOD COUNT 2.95 MIL/MM3 (4.00-5.30); RED CELL DISTRIBUTION WIDTH 17.4 % (11.6-17.2); WHITE BLOOD COUNT 5.8 TH/MM3 (4.0-11.0)
[2016-11-06 20:12] LABS: INTERNATIONAL NORMALIZED RATIO 1.1 RATIO; PROTHROMBIN TIME - PATIENT 12.7 SEC (9.8-11.6)
[2016-11-06 20:13] LABS: ANION GAP 9 MEQ/L (5-15); AST (GOT) 20 U/L (15-37); BICARBONATE 23.2 MEQ/L (21.0-32.0); BLOOD UREA NITROGEN 10 MG/DL (7-18); CHLORIDE 115 MEQ/L (98-107); GLOMERULAR FILTRATION RATE 64 ML/MIN (>89); SODIUM (NA) 147 MEQ/L (136-145)
[2016-11-06 20:19] LABS: ALKALINE PHOSPHATASE 180 U/L (45-117); ALT (GPT) 14 U/L (10-53); TOTAL BILIRUBIN ADULT 0.7 MG/DL (0.2-1.0)
[2016-11-06] MEDS ORDERED: IOHEXOL 350 MG/ML 10 ML VIAL (for RAD DIAG) IV ONE (20:54)
[2016-11-06 21:02] VITALS: BP 116/57; PULSE 77; RESP 15; O2SAT 100
--- NOTE | 2016-11-06 21:07 | RADRPT ---
EXAM DATE/TIME: 11/06/2016 20:50 [place] COMPARISON: No previous studies available for comparison. INDICATIONS : Abdominal pain and distention. IV CONTRAST: 88 cc Omnipaque 350 (iohexol) IV ORAL CONTRAST: No oral contrast ingested. RADIATION DOSE: 6.16 CTDIvol (mGy) MEDICAL HISTORY : Hepatitis C. Cirrhosis. SURGICAL HISTORY : section. Paracentesis ENCOUNTER: Initial ACUITY: 1 week PAIN SCALE: 8/10 LOCATION: abdomen TECHNIQUE: Volumetric scanning of the abdomen and pelvis was performed. Using automated exposure control and ad justment of the mA and/or kV according to patient size, radiation dose was kept as low as reasonably achievable to obtain optimal diagnostic quality images. FINDINGS: LOWER LUNGS: The visualized lower lungs are clear. LIVER: Cirrhotic liver without lesion. There is no dilation of the biliary tree. Dilated gallbladder intral uminal density and gallstones. Moderate ascites. Varices in the upper abdomen. SPLEEN: Normal size without lesion. PANCREAS: Within normal limits. KIDNEYS: Normal in size and shape. There is no mass, stone or hydronephrosis. ADRENAL GLANDS: Within normal limits. VASCULAR: There is no aortic aneurysm. BOWEL/MESENTERY: Wall thickening sigmoid colon with a few scattered diverticula. There is no free intraperitoneal air. ABDOMINAL WALL: Within normal limits. RETROPERITONEUM: There is no lymphadenopathy. BLADDER: No wall thickening or mass. REPRODUCTIVE: Within normal limits. INGUINAL: There is no lymphadenopathy or hernia on the left. Fat-containing/fluid containing right inguinal her lisa. MUSCULOSKELETAL: Within normal limits for patient age. CONCLUSION: 1. Cirrhotic liver with moderate abdominal ascites. 2. Dilated gallbladder containing intraluminal density and gallstones. 3. Wall thickening within the sigmoid colon with diverticulosis. Ha Carey MD on November 06, 2016 at 21:02 Board Certified Radiologist. This report was verified electronically.
--- NOTE | 2016-11-06 21:10 | HHI.HP ---
[facility] Kim Lindquist MD Admission Diagnosis Pancreatitis Diagnoses: (1) Pancreatitis Diagnosis: Principal (2) Thrombocytopenia Diagnosis: Principal (3) Cirrhosis of liver Diagnosis: Principal (4) HTN (hypertension) Diagnosis: Principal Travel History International Travel<30 Days: No Contact w/Intl Traveler <30 Da: No Traveled to Known Affected Are: No History of Present Illness This is a 55-year-old female with a PMH of HTN, Anxiety, Depression, Hepatitis C , Cirrhosis, h/o GI Bleed and Tobacco Abuse who presented to the ER with complaints of severe epigastric pain x3 days w/ associated nausea and non- bloody emesis. Denies fever, chills or diarrhea. On arrival, BP 204/89, HR 61 , O2 sat percent on RA, Afebrile. Platelets 105, previously 75 on 10/13/16. Na 147. Lipase 936. CT Abd/Pelvis w/ cirrhosis, moderate ascites, dilated gallbladder w/ gallstones and wall thickening of sigmoid colon with diverticulosis. S/p Pepcid, Morphine and IVF in ER. Review of Systems ROS: 14 point review of systems otherwise negative. Past Family Social History Past Medical History PMH: HTN, Anxiety, Depression, Hepatitis C, Cirrhosis, h/o GI Bleed and Tobacco Abuse Past Surgical History PAST SURGICAL HISTORY: Paracentesis, , Right Leg ORIF Allergies: Coded Allergies: No Known Allergies (Unverified , 11/06/16) Family History PAST FAMILY HISTORY: Reviewed. No h/o DM or CAD Social History PAST SOCIAL HISTORY: Couple of drinks per week. Smokes 1/4ppd. Negative for drugs. Physical Exam Vital Signs Vital Signs Date Time Temp Pulse Resp B/P Pulse Ox O2 Delivery O2 Flow Rate FiO2 11/06/16 21:02 77 15 116/57 100 Room Air 11/06/16 19:48 100 Room Air 11/06/16 19:26 17 11/06/16 19:20 98.2 61 17 204/89 100 Physical Exam PE: GENERAL: Middle-aged female in no acute distress. HEENT: PERRLA, EOMI. No scleral icterus or conjunctival pallor. No lid lag or facial droop. CARDIOVASCULAR: Regular rate and rhythm. No obvious murmurs to auscultation. No chest tenderness to palpation. RESPIRATORY: No obvious rhonchi or wheezing. Clear to auscultation. Breath sounds equal bilaterally. GASTROINTESTINAL: Abdomen soft, mildly distended but soft, mild tenderness to palpation epigastric region. BS normal. MUSCULOSKELETAL: Extremities without clubbing, cyanosis, or edema. No obvious deformities. NEUROLOGICAL: Awake, alert and oriented x4. No focal neurologic deficits. Moving both upper and lower extremities spontaneously. Laboratory Laboratory Tests Test 11/06/16 19:36 White Blood Count 5.8 Red Blood Count 2.95 Hemoglobin 9.5 Hematocrit 27.5 Mean Corpuscular Volume 93.0 Mean Corpuscular Hemoglobin 32.2 Mean Corpuscular Hemoglobin 34.7 Concent Red Cell Distribution Width 17.4 Platelet Count 105 Mean Platelet Volume 7.6 Neutrophils (%) (Auto) 53.3 Lymphocytes (%) (Auto) 28.0 Monocytes (%) (Auto) 7.7 Eosinophils (%) (Auto) 5.5 Basophils (%) (Auto) 5.5 Neutrophils # (Auto) 3.1 Lymphocytes # (Auto) 1.6 Monocytes # (Auto) 0.4 Eosinophils # (Auto) 0.3 Basophils # (Auto) 0.3 CBC Comment DIFF FINAL Differential Comment Prothrombin Time 12.7 Prothromb Time International 1.1 Ratio Activated Partial 28.0 Thromboplast Time Sodium Level 147 Potassium Level 4.0 Chloride Level 115 Carbon Dioxide Level 23.2 Anion Gap 9 Blood Urea Nitrogen 10 Creatinine 0.92 Estimat Glomerular Filtration 64 Rate Random Glucose 102 Calcium Level 8.0 Total Bilirubin 0.7 Aspartate Amino Transf 20 (AST/SGOT) Alanine Aminotransferase 14 (ALT/SGPT) Alkaline Phosphatase 180 Troponin I LESS THAN 0.02 Total Protein 6.2 Albumin 2.6 Lipase 936 Result Diagram: 11/06/16193511/06/161935 Assessment and Plan Problem List: (1) Pancreatitis ICD Code: K85.90 Status: Acute (2) Cirrhosis of liver ICD Code: K74.60 Status: Chronic (3) Thrombocytopenia ICD Code: D69.6 Status: Acute (4) HTN (hypertension) ICD Code: I10 Status: Acute Assessment and Plan A/P: 1. Pancreatitis: c/o epigastric pain x3 days, Lipase 936. CT Abd/Pelvis w/ cirrhosis, moderate ascites, distended gallbladder w/ stones and wall thickening of sigmoid colon w/ diverticulosis, images reviewed by me. IVF, Protonix IV, antiemetics/analgesics as needed. Repeat Lipase in am. Diet as tolerated. 2. Cirrhosis: H/o Alcohol Abuse and Hepatitis C. CT Abd/Pelvis w/ moderate ascites, abdomen soft. Resume home Propranolol and Aldactone. 3. Thrombocytopenia: Chronic. Platelets 105, previously 75 on 10/13/16. No active bleeding. Will monitor, repeat labs in am. 4. HTN: BP on arrival 204/89, HR 61, likely compounded by complaints of pain. BP currently 108/72, HR 81. Will continue to monitor. 5. DVT Prophylaxis: Pharmacologic contraindication due to thrombocytopenia and h/o GI Bleed. 6. Social work for d/c planning as needed. 7. Case discussed w/ ER physician at length. Problem Qualifiers (1) Pancreatitis: Qualified Code: K85.90 - Acute pancreatitis, unspecified complication status, unspecified pancreatitis type Jaelyn Mullins MD Nov 06, 2016 21:10
[2016-11-06] MEDS ORDERED: ACETAMINOPHEN 325 MG TAB PO PRN (21:15)
[2016-11-06] MEDS ORDERED: BISACODYL 10 MG SUPP PR PRN (21:15)
--- NOTE | 2016-11-06 21:37 | PD ---
HPI Chief Complaint: Abdominal Pain Time Seen by Provider: 19:18 Travel History International Travel<30 days: No Contact w/Intl Traveler<30days: No Traveled to known affect area: No History of Present Illness HPI Patient is a 55-year-old female who comes in complaining of severe abdominal pain. She says this is been going on for the past few days and got worse today. She says the pain is in the epigastric area and radiates to her right shoulder. She reports nausea and vomiting. I seeing any blood in her vomit. She denies fever or chills. She denies any chest pain or shortness of breath. PFSH Past Medical History Asthma: No Blood Disorders: Yes (gi bleed) Anxiety: Yes Depression: Yes Heart Rhythm Problems: No Cancer: No Cardiovascular Problems: No High Cholesterol: No Chemotherapy: No Chest Pain: No Congestive Heart Failure: No Cirrhosis: Yes COPD: No Diabetes: No Diminished Hearing: Yes ([employer] [place]) Endocrine: No Gastrointestinal Disorders: Yes (Hep C) Genitourinary: No Hepatitis: Yes (HEP C, CIRRHOSIS) Hypertension: Yes Immune Disorder: No Inguinal Hernia: Yes (RIGHT) Implanted Vascular Access Dvce: No Musculoskeletal: Yes (OA) Neurologic: No Psychiatric: No Reproductive: No Respiratory: No Immunizations Current: No Radiation Therapy: No Sleep Apnea: No Thyroid Disease: No Tetanus Vaccination: Unknown ?: Not Menopausal: Yes Past Surgical History Abdominal Surgery: Yes (PARACENTESIS) AICD: No Body Medical Devices: METAL PINS IN RIGHT LEG Section: Yes Ear Surgery: No Eye Surgery: No Genitourinary Surgery: No Gynecologic Surgery: Yes () Joint Replacement: Yes Neurologic Surgery: No Oral Surgery: No Pacemaker: No Other Surgery: Yes (ORIF right leg, ) Social History Alcohol Use: No (couple drinks a week ) Tobacco Use: Yes (09/15 PPD) Substance Use: No Allergies-Medications (Allergen,Severity, Reaction): Coded Allergies: No Known Allergies (Unverified , 11/06/16) Reported Meds & Prescriptions Reported Meds & Active Scripts Active Neurontin (Gabapentin) 300 Mg Cap 300 Mg PO TID 30 Days Propranolol (Propranolol HCl) 20 Mg Tab 20 Mg PO BID 30 Days Reported Ibuprofen 400 Mg Tab 400 Mg PO Q6H PRN Tylenol Extra Strength (Acetaminophen) 500 Mg Tab 500 Mg PO Q4-6H PRN Protonix (Pantoprazole Sodium) 40 Mg Tab 40 Mg PO BID Aldactone (Spironolactone) 25 Mg Tab 25 Mg PO DAILY Trazodone (Trazodone HCl) 50 Mg Tab 50 Mg PO HS Review of Systems Except as stated in HPI: all other systems reviewed are Neg General / Constitutional: No: Fever, Chills HENT: No: Headaches, Lightheadedness Cardiovascular: No: Chest Pain or Discomfort Respiratory: No: Shortness of Breath Gastrointestinal: Positive: Nausea, Vomiting, Abdominal Pain Genitourinary: No: Dysuria Musculoskeletal: No: Edema Skin: No Rash, No Change in Pigmentation Neurologic: No: Weakness, Dizziness Physical Exam Narrative GENERAL: Awake and alert, in moderate distress due to pain. SKIN: Warm and dry. HEAD: Atraumatic. Normocephalic. EYES: Pupils equal and round. No scleral icterus. ENT: Mucous membranes pink and moist. NECK: Trachea midline. No JVD. CARDIOVASCULAR: Regular rate and rhythm. No murmur appreciated. RESPIRATORY: No accessory muscle use. Clear to auscultation. Breath sounds equal bilaterally. GASTROINTESTINAL: Abdomen soft, , nondistended. Tender to the epigastric area. No rebound or guarding. MUSCULOSKELETAL: No obvious deformities. No clubbing. No cyanosis. No edema. NEUROLOGICAL: Awake and alert. No obvious cranial nerve deficits. Motor grossly within normal limits. Normal speech. PSYCHIATRIC: Appropriate mood and affect; insight and judgment normal. Data Data Last Documented VS Vital Signs Date Time Temp Pulse Resp B/P Pulse Ox O2 Delivery O2 Flow Rate FiO2 11/06/16 21:02 77 15 116/57 100 Room Air 11/06/16 19:20 98.2 Orders Electrocardiogram (11/06/16 ) Complete Blood Count With Diff (11/06/16 19:28) Comprehensive Metabolic Panel (11/06/16 19:28) Lipase (11/06/16 19:28) Prothrombin Time / Inr (Pt) (11/06/16 19:28) Act Partial Throm Time (Ptt) (11/06/16 19:28) Urinalysis - C+S If Indicated (11/06/16 19:28) Ua Includes Microscopic (11/06/16 19:28) Ct Abd/Pel W Iv Contrast(Rout) (11/06/16 19:28) Iv Access Insert/Monitor (11/06/16 19:28) Ecg Monitoring (11/06/16 19:28) Oximetry (11/06/16 19:28) Morphine Inj (Morphine Inj) (11/06/16 19:30) Ondansetron Inj (Zofran Inj) (11/06/16 19:30) Sodium Chlor 0.9% 1000 Ml Inj (Ns 1000 M (11/06/16 19:28) Sodium Chloride 0.9% Flush (Ns Flush) (11/06/16 19:30) Famotidine Inj (Pepcid Inj) (11/06/16 19:30) Troponin I (11/06/16 19:28) Iohexol 350 Inj (Omnipaque 350 Inj) (11/06/16 20:54) Admit Order (Ed Use Only) (11/06/16 ) Morphine Inj (Morphine Inj) (11/06/16 21:15) Pantoprazole Inj (Protonix Inj) (11/07/16 09:00) Place In Observation (11/06/16 ) Vital Signs (Adult) Q4H (11/06/16 21:04) Activity Oob Ad Ashley (11/06/16 21:04) Intake + Output ESTRELLA.QSHIFT (11/06/16 21:04) Diet Heart Healthy (11/07/16 Breakfast) Sodium Chlor 0.9% 1000 Ml Inj (Ns 1000 M (11/06/16 22:00) Sodium Chloride 0.9% Flush (Ns Flush) (11/06/16 21:15) Sodium Chloride 0.9% Flush (Ns Flush) (11/07/16 09:00) Ondansetron Inj (Zofran Inj) (11/06/16 21:15) Bisacodyl Supp (Dulcolax Supp) (11/06/16 21:15) Comprehensive Metabolic Panel (11/07/16 06:00) Complete Blood Count With Diff (11/07/16 06:00) Lipase (11/07/16 06:00) Scd Bilateral/Knee High ESTRELLA.BID (11/06/16 21:04) Fabian Bilateral/Knee High ESTRELLA.QSHIFT (11/06/16 21:04) Acetaminophen (Tylenol) (11/06/16 21:15) Morphine Inj (Morphine Inj) (11/06/16 21:15) Oxycodone (Roxicodone) (11/06/16 21:15) Gabapentin (Neurontin) (11/07/16 09:00) Propranolol (Inderal) (11/07/16 09:00) Spironolactone (Aldactone) (11/07/16 09:00) Trazodone (Desyrel) (11/07/16 21:00) Labs Laboratory Tests Test 11/06/16 19:36 White Blood Count 5.8 TH/MM3 Red Blood Count 2.95 MIL/MM3 Hemoglobin 9.5 GM/DL Hematocrit 27.5 % Mean Corpuscular Volume 93.0 FL Mean Corpuscular Hemoglobin 32.2 PG Mean Corpuscular Hemoglobin 34.7 % Concent Red Cell Distribution Width 17.4 % Platelet Count 105 TH/MM3 Mean Platelet Volume 7.6 FL Neutrophils (%) (Auto) 53.3 % Lymphocytes (%) (Auto) 28.0 % Monocytes (%) (Auto) 7.7 % Eosinophils (%) (Auto) 5.5 % Basophils (%) (Auto) 5.5 % Neutrophils # (Auto) 3.1 TH/MM3 Lymphocytes # (Auto) 1.6 TH/MM3 Monocytes # (Auto) 0.4 TH/MM3 Eosinophils # (Auto) 0.3 TH/MM3 Basophils # (Auto) 0.3 TH/MM3 CBC Comment DIFF FINAL Differential Comment Prothrombin Time 12.7 SEC Prothromb Time International 1.1 RATIO Ratio Activated Partial 28.0 SEC Thromboplast Time Sodium Level 147 MEQ/L Potassium Level 4.0 MEQ/L Chloride Level 115 MEQ/L Carbon Dioxide Level 23.2 MEQ/L Anion Gap 9 MEQ/L Blood Urea Nitrogen 10 MG/DL Creatinine 0.92 MG/DL Estimat Glomerular Filtration 64 ML/MIN Rate Random Glucose 102 MG/DL Calcium Level 8.0 MG/DL Total Bilirubin 0.7 MG/DL Aspartate Amino Transf 20 U/L (AST/SGOT) Alanine Aminotransferase 14 U/L (ALT/SGPT) Alkaline Phosphatase 180 U/L Troponin I LESS THAN 0.02 NG/ML Total Protein 6.2 GM/DL Albumin 2.6 GM/DL Lipase 936 U/L MDM Medical Decision Making Medical Screen Exam Complete: Yes Emergency Medical Condition: Yes Medical Record Reviewed: Yes Interpretation(s) ECG shows sinus bradycardia at 56, no ST elevation or depression. Differential Diagnosis Pancreatitis versus cholecystitis versus ACS Narrative Course Patient is a 55-year-old female comes in complaining of severe abdominal pain. Exam shows epigastric tenderness. IV established, labs sent. Patient connected to sports official. Given IV fluids, morphine, Zofran. Show a lipase of 963. Patient placed in observation for further management of pancreatitis. Diagnosis Primary Impression: Pancreatitis Qualified Code: K85.90 - Acute pancreatitis, unspecified complication status, unspecified pancreatitis type Admitting Information Admitting Physician Requests: Observation Aline Cuevas MD Nov 06, 2016 21:37
--- NOTE | 2016-11-06 22:26 | EKG ---
Date Performed: 11/06/2016 Time Performed: 19:29:39 PTAGE: 55 years EKG: SINUS BRADYCARDIA POSSIBLE INFERIOR MYOCARDIAL INFARCTION BORDERLINE ECG NO PREVIOUS TRACING DOCTOR: Chato Cheema Interpretating Date/Time 11/06/2016 22:25:01
[2016-11-06] MEDS: SODIUM CHLOR 0.9% 1000 ML INJ 1,000 ML IV SCH ×2 (22:49→23:55)
[2016-11-06 22:52] VITALS: BP 130/66; PULSE 88; RESP 18; O2SAT 96
[2016-11-06 23:55] VITALS: BP 108/72; PULSE 81; RESP 18; TEMP 98.4; O2SAT 98
[2016-11-07] MEDS: MORPHINE SULFATE 4 MG/ML INJ IV PRN ×5 (02:02→22:16)
[2016-11-07 06:02] VITALS: BP 154/78; PULSE 74; RESP 18; TEMP 98.8; O2SAT 98
[2016-11-07 07:06] LABS: AUTOMATED NEUTROPHIL # 13.6 TH/MM3 (1.8-7.7); BASOPHIL # 0.1 TH/MM3 (0-0.2); BASOPHIL % 0.4 % (0.0-2.0); HEMATOCRIT 22.9 % (35.0-46.0); LYMPHOCYTE # 1.1 TH/MM3 (1.0-4.8); MEAN CELL VOLUME 95.1 FL (80.0-100.0); MEAN CORPUSCULAR HEMOGLOBIN 31.4 PG (27.0-34.0); MONO % 4.6 % (0.0-8.0); PLATELET COUNT 89 TH/MM3 (150-450); RED BLOOD COUNT 2.41 MIL/MM3 (4.00-5.30); RED CELL DISTRIBUTION WIDTH 18.1 % (11.6-17.2); WHITE BLOOD COUNT 15.4 TH/MM3 (4.0-11.0)
[2016-11-07 07:30] VITALS: BP 165/85; PULSE 79; RESP 18; TEMP 98.2; O2SAT 95
[2016-11-07 07:43] LABS: BICARBONATE 21.3 MEQ/L (21.0-32.0); CALCIUM-PROTEIN CORRECTED 8.2 MG/DL (8.5-10.1); POTASSIUM 4.6 MEQ/L (3.5-5.1); TOTAL BILIRUBIN ADULT 1.6 MG/DL (0.2-1.0)
[2016-11-07] MEDS: SODIUM CHLORIDE 0.9% FLUSH 5 ML FLUSH FLUSH SCH ×2 (07:43→21:00)
[2016-11-07] MEDS: GABAPENTIN 300 MG CAP PO SCH ×3 (07:45→18:00)
[2016-11-07] MEDS: PROPRANOLOL HCL 20 MG TAB PO SCH ×2 (07:45→22:16)
[2016-11-07] MEDS: PANTOPRAZOLE SODIUM 40 MG VIAL IV PUSH SCH ×2 (07:46→22:15)
[2016-11-07 07:48] LABS: HEMO FLAGS AUTO DIFF
[2016-11-07] MEDS ORDERED: SPIRONOLACTONE 25 MG TAB PO SCH (09:00)
[2016-11-07] MEDS ORDERED: MORPHINE SULFATE 4 MG/ML INJ IV PUSH ONE (09:30)
[2016-11-07 09:37] LABS: BANDS 39 % (0-6); EOSINOPHILS 1 % (0-4); NEUTROPHIL # MANUAL DIFF 14.3 TH/MM3 (1.8-7.7); PLATELET ESTIMATE SMEAR LOW (NORMAL); PLATELET MORPHOLOGY NORMAL (NORMAL); POLYS (SEG NEUTROPHILS) 54 % (16-70); SCAN/DIFF FINAL DIFF MANUAL; WBC DIFF SAMPLE 100
--- NOTE | 2016-11-07 09:42 | HHI.PR ---
Subjective Remarks Follow-up for abdominal pain, nausea/vomiting. Patient reports continued significant epigastric pain and right upper quadrant pain, only temporarily relieved by IV morphine. She remains nauseous, but no vomiting since prior to arrival. She had a normal BM this morning, formed brown stool, nonbloody. Denies fevers or chills. Denies any other medical complaints. Her lead manufacturing engineer is Dr. Larios. Objective Vitals Vital Signs Date Time Temp Pulse Resp B/P Pulse Ox O2 Delivery O2 Flow Rate FiO2 11/07/16 07:30 98.2 79 18 165/85 95 11/07/16 06:02 98.8 74 18 154/78 98 11/06/16 23:55 98.4 81 18 108/72 98 11/06/16 22:52 88 18 130/66 96 Room Air 11/06/16 21:02 77 15 116/57 100 Room Air 11/06/16 19:48 100 Room Air 11/06/16 19:26 17 11/06/16 19:20 98.2 61 17 204/89 100 Result Diagram: 11/07/16 0638 11/07/16 0638 Imaging Last Impressions Abdomen/Pelvis CT 11/06/161927 Signed Impressions: Service Date/Time: Sunday, November 06, 2016 20:50 - CONCLUSION: 1. Cirrhotic liver with moderate abdominal ascites. 2. Dilated gallbladder containing intraluminal density and gallstones. 3. Wall thickening within the sigmoid colon with diverticulosis. Ha Carey MD Objective Remarks GENERAL: Well-nourished, well-developed middle aged female patient in mild distress secondary to pain, constantly moaning throughout conversation. SKIN: Warm and dry. No rash. HEENT: Normocephalic. Atraumatic. Pupils equal and round. No scleral icterus. No injection or drainage. Mucous membranes pink and moist. NECK: Supple. Trachea midline. CARDIOVASCULAR: Regular rate and rhythm. S1, S2 noted. No murmur appreciated. RESPIRATORY: No accessory muscle use. Clear to auscultation. Breath sounds equal bilaterally. GASTROINTESTINAL: Abdomen soft, nondistended, significant epigastric/RUQ TTP with voluntary guarding. Normoactive bowel sounds x4. MUSCULOSKELETAL: No obvious deformities. Extremities without clubbing, cyanosis , or edema. NEUROLOGICAL: AAOx4. No obvious cranial nerve deficits. Motor grossly within normal limits. Normal speech. PSYCHIATRIC: Appropriate mood and affect; insight and judgment normal. Medications and IVs Current Medications Medications (Trade) Dose Ordered Sig/Osmin Route Start Time Stop Time Status Last Admin Pantoprazole Sodium 40 mg 40 mg Q12H IV PUSH 11/07/16 09:00 11/07/16 07:46 (NS 1000 ml Inj) 1,000 ml @ 100 mls/hr Q10H IV 11/06/16 22:00 11/06/16 23:55 (NS Flush) 2 ml UNSCH PRN FLUSH 11/06/16 21:15 (NS Flush) 2 ml BID FLUSH 11/07/16 09:00 11/07/16 07:43 (Zofran Inj) 4 mg Q6H PRN IVP 11/06/16 21:15 (Dulcolax Supp) 10 mg DAILY PRN VA 11/06/16 21:15 (Tylenol) 650 mg Q6H PRN PO 11/06/16 21:15 (Morphine Inj) 2 mg Q3H PRN IV 11/06/16 21:15 11/07/16 07:42 (Roxicodone) 5 mg Q4H PRN PO 11/06/16 21:15 11/07/16 08:57 (Neurontin) 300 mg TID PO 11/07/16 09:00 11/07/16 07:45 (Inderal) 20 mg BID PO 11/07/16 09:00 11/07/16 07:45 (Aldactone) 25 mg DAILY PO 11/07/16 09:00 11/07/16 07:45 (Desyrel) 50 mg HS PO 11/07/16 21:00 Urinary Catheter: No Vascular Central Line Catheter: No A/P Problem List: (1) Pancreatitis ICD Code: K85.90 Status: Acute (2) Cirrhosis of liver ICD Code: K74.60 Status: Chronic (3) Thrombocytopenia ICD Code: D69.6 Status: Acute (4) HTN (hypertension) ICD Code: I10 Status: Acute Assessment and Plan 55-year-old female with a PMH of HTN, Anxiety, Depression, Hepatitis C, Cirrhosis, h/o GI Bleed and Tobacco Abuse who presented to the ER with complaints of severe epigastric pain x3 days w/ associated nausea and non- bloody emesis. Intractable Abdominal Pain/Nausea/Vomiting with Acute Pancreatitis: concern for SBP and/or Acute Cholecystitis. Lipase 936. WBC 15.4K. Tbili 1.6, AST 14, ALT 11 , Alk Phos 139. CT Abd/Pelvis w/ cirrhosis, moderate ascites, distended gallbladder w/ stones, and wall thickening of sigmoid colon w/ diverticulosis, images reviewed by me. -Continue IVF, Protonix IV, antiemetics/analgesics as needed, requiring IV morphine. -Repeat lipase 351 -Clear liquid diet for now -Check GB U/S -Consult gastroenterology -Start on IV Zosyn Acute on Chronic Normocytic Anemia: secondary to liver cirrhosis, with hx of requiring transfusions in the past. Hgb 9.5 upon arrival, dropped to 7.6 today. -Repeat labs this afternoon -Transfuse if Hgb < 7.0 Cirrhosis: H/o Alcohol Abuse and Hepatitis C. CT Abd/Pelvis w/ moderate ascites, abdomen soft. -Resumed home Propranolol and Aldactone. Thrombocytopenia: Chronic. Platelets 105, previously 75 on 10/13/16. No active bleeding. -Will monitor CBC. HTN: BP on arrival 204/89, HR 61, likely compounded by complaints of pain. BP currently 108/72, HR 81. -Restart home meds, continue to monitor. DVT Prophylaxis: Pharmacologic contraindication due to thrombocytopenia and h/ o GI Bleed. Discussed with Dr. Young. Attending Statement The exam, history, and the medical decision-making described in the above note were completed with the assistance of the mid-level provider. I reviewed and agree with the findings presented. I attest that I had a goqk-[id number] encounter with the patient on the same day, and personally performed and documented my assessment and findings in the medical record. Problem Qualifiers (1) Pancreatitis: Qualified Code: K85.90 - Acute pancreatitis, unspecified complication status, unspecified pancreatitis type Gaye Davis PA-C Nov 07, 2016 09:42 Tom Young MD Nov 08, 2016 02:48
[2016-11-07] MEDS: SODIUM CHLORIDE 0.9% FLUSH 5 ML FLUSH FLUSH PRN (09:55)
--- NOTE | 2016-11-07 11:37 | RADRPT ---
EXAM DATE/TIME: 11/07/2016 09:48 [facility] COMPARISON: CT ABDOMEN & PELVIS W CONTRAST, November 06, 2016, 20:50. INDICATIONS : Right upper quadrant pain. MEDICAL HISTORY : Hypertension. [place]. Depression. Anxiety. Liver disease. Hepatitis C. Cirrhosis. SURGICAL HISTORY : section. Paracentesis. Left leg surgery. ENCOUNTER: Initial ACUITY: 2 days PAIN SCORE: 10/10 LOCATION: Right upper quadrant MEASUREMENTS: LIVER: 14.0 cm length COMMON DUCT: 7 mm RIGHT KIDNEY: 9.7 x 3.8 x 5.1 cm FINDINGS: LIVER: Small, heterogeneous and nodular. No focal hepatic lesion demonstrated. No intrahepatic biliary diste ntion. Chronically thrombosed portal vein with numerous collaterals in the luis hepatis noted. COMMON DUCT: No perceptible stone. Upper limits caliber to mildly distended for a patient this age. GALLBLADDER: Not as distended relative to yesterday's CT. Wall thickening and pericholecystic fluid present. There is sludge in the lumen. PANCREAS: The visualized portions are within normal limits. RIGHT KIDNEY: No evidence of hydronephrosis, stone, or mass. There is moderate ascites containing some floating debris. CONCLUSION: 1. Wall thickening and pericholecystic fluid of the gallbladder and differential includes secondary c hanges from chronic liver disease and acute cholecystitis. Equivocal sonographic Myles sign as the p atient complains of pain during the entire scan. Sludge is in the gallbladder. 2. Ascites present and containing floating debris. The ascites is of heterogeneous attenuation on yes terday's CT suggesting there may be a recently hemorrhagic component. 3. 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 Tony Hdez MD on November 07, 2016 at 11:23 Board Certified Radiologist. This report was verified electronically.
[2016-11-07 12:09] VITALS: BP 130/70; PULSE 79; RESP 19; TEMP 98; O2SAT 96
[2016-11-07 14:32] LABS: HEMATOCRIT 21.9 % (35.0-46.0); MEAN CELL VOLUME 95.4 FL (80.0-100.0); MEAN CORPUSCULAR HEMOGLOBIN 31.5 PG (27.0-34.0); PLATELET COUNT 97 TH/MM3 (150-450); RED CELL DISTRIBUTION WIDTH 18.3 % (11.6-17.2); WHITE BLOOD COUNT 19.1 TH/MM3 (4.0-11.0)
[2016-11-07 14:34] LABS: REVIEW FLAG FINAL
[2016-11-07] MEDS: PIPERACIL-TAZO 4.5 GM PREMIX 100 ML IV SCH ×2 (16:07→22:16)
--- NOTE | 2016-11-07 16:16 | PD.CONS ---
HPI History of Present Illness This is a 55 year old female who presented to the ER with severe epigastric abdominal pain x 3 days, associated with nausea and non-bloody emesis. No diarrhea. Medical history positive for hypertension, anxiety, depression, Hep C , Cirrhosis, h/o GI bleed, and tobacco abuse. Reports history of illicit drug use, but not currently. Abdominal/Pelvis CT-->Cirrhotic liver with moderate abdominal ascites, dilated gallbladder containing intraluminal density and gallstones, wall thickening within sigmoid colon with diverticulosis. Lipase initially 936 on admission, today 351. AST 14, ALT 11, Total Bili 1.6. PFSH Past Medical History PMH: HTN Anxiety Depression Hepatitis C Cirrhosis h/o GI Bleed Tobacco Abuse Past Surgical History PAST SURGICAL HISTORY: -Paracentesis - -Right Leg ORIF Coded Allergies: No Known Allergies (Unverified , 11/06/16) Medications Current Medications Medications (Trade) Dose Ordered Sig/Osmin Route PRN Reason Start Time Stop Time Status Last Admin Dose Admin Pantoprazole Sodium 40 mg 40 mg Q12H IV PUSH 11/07/16 09:00 11/07/16 07:46 Sodium Chloride (NS 1000 ml Inj) 1,000 ml @ 100 mls/hr Q10H IV 11/06/16 22:00 11/06/16 23:55 IV Flush (NS Flush) 2 ml UNSCH PRN FLUSH FLUSH AFTER USING IV ACCESS 11/06/16 21:15 11/07/16 09:55 IV Flush (NS Flush) 2 ml BID FLUSH 11/07/16 09:00 11/07/16 07:43 Ondansetron HCl (Zofran Inj) 4 mg Q6H PRN IVP NAUSEA OR VOMITING 11/06/16 21:15 Bisacodyl (Dulcolax Supp) 10 mg DAILY PRN [place] CONSTIPATION 11/06/16 21:15 Acetaminophen (Tylenol) 650 mg Q6H PRN PO FEVER 11/06/16 21:15 Morphine Sulfate (Morphine Inj) 2 mg Q3H PRN IV Pain 6-10 11/06/16 21:15 11/07/16 14:40 Oxycodone HCl (Roxicodone) 5 mg Q4H PRN PO PAIN SCALE 3 TO 5 11/06/16 21:15 11/07/16 08:57 Gabapentin (Neurontin) 300 mg TID PO 11/07/16 09:00 11/07/16 14:40 Propranolol HCl (Inderal) 20 mg BID PO 11/07/16 09:00 11/07/16 07:45 Spironolactone (Aldactone) 25 mg DAILY PO 11/07/16 09:00 11/07/16 07:45 Trazodone HCl 50 mg 50 mg HS PO 11/07/16 21:00 Piperacillin Sod/ Tazobactam Sod (Zosyn 4.5 Gm Premix) 100 ml @ 200 mls/hr Q8H IV 11/07/16 12:00 Family History PAST FAMILY HISTORY: No DM, CAD. Social History PAST SOCIAL HISTORY: -Couple of drinks per week. -Smokes 1/4ppd -Denies illicit drug use. Review of Systems Constitutional: DENIES: Diaphoretic episodes, Fatigue, Fever, Weight gain, Weight loss, Chills, Dizziness, Change in appetite, Night Sweats Endocrine: DENIES: Polydipsia, Polyuria Eyes: DENIES: Blurred vision, Photosensitivity Ears, nose, mouth, throat: COMPLAINS OF: Hearing loss, DENIES: Vertigo, Oral lesions, Throat pain, Hoarseness Respiratory: COMPLAINS OF: Cough, DENIES: Wheezing, Hemoptysis, Sputum production, Shortness of breath Cardiovascular: DENIES: Chest pain, Palpitations, Syncope, Lower Extremity Edema, Orthopnea, Claudication Gastrointestinal: COMPLAINS OF: Abdominal pain, Diarrhea, Nausea, Vomiting, DENIES: Black stools, Bloody stools, Constipation, Difficulty Swallowing, Anorexia Genitourinary: DENIES: Urinary frequency, Urinary incontinence, Urgency, Hematuria, Dysuria, Nocturia Musculoskeletal: DENIES: Joint pain, Muscle aches, Stiffness, Joint Swelling, Back pain, Neck pain Integumentary: DENIES: Abnormal pigmentation, Nail changes, Pruritus, Rash, Jaundice Hematologic/lymphatic: DENIES: Bruising, Lymphadenopathy Immunologic/allergic: DENIES: Eczema, Urticaria Neurologic: DENIES: Abnormal gait, Headache, Localized weakness, Paresthesias Psychiatric: DENIES: Anxiety, Confusion, Mood changes, Depression, Agitation, Suicidal Ideation GI Exam Vitals I&O Vital Signs Date Time Temp Pulse Resp B/P Pulse Ox O2 Delivery O2 Flow Rate FiO2 11/07/16 12:09 98.0 79 19 130/70 96 11/07/16 07:30 98.2 79 18 165/85 95 11/07/16 06:02 98.8 74 18 154/78 98 11/06/16 23:55 98.4 81 18 108/72 98 11/06/16 22:52 88 18 130/66 96 Room Air 11/06/16 21:02 77 15 116/57 100 Room Air 11/06/16 19:48 100 Room Air 11/06/16 19:26 17 11/06/16 19:20 98.2 61 17 204/89 100 Imaging Last Impressions Gall Bladder Ultrasound 11/07/16 0000 Signed Impressions: Service Date/Time: Monday, November 07, 2016 09:48 - CONCLUSION: 1. Wall thickening and pericholecystic fluid of the gallbladder and differential includes secondary changes from chronic liver disease and acute cholecystitis. Equivocal sonographic Myles sign as the patient complains of pain during the entire scan. Sludge is in the gallbladder. 2. Ascites present and containing floating debris. The ascites is of heterogeneous attenuation on yesterday's CT suggesting there may be a recently hemorrhagic component. 3. 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 Tony Hdez MD Abdomen/Pelvis CT 11/06/161927 Signed Impressions: Service Date/Time: Sunday, November 06, 2016 20:50 - CONCLUSION: 1. Cirrhotic liver with moderate abdominal ascites. 2. Dilated gallbladder containing intraluminal density and gallstones. 3. Wall thickening within the sigmoid colon with diverticulosis. Ha Carey MD Laboratory Test 11/06/16 11/07/16 11/07/16 19:36 06:38 14:15 White Blood Count 5.8 TH/MM3 15.4 TH/MM3 19.1 TH/MM3 Red Blood Count 2.95 MIL/MM3 2.41 MIL/MM3 2.30 MIL/MM3 Hemoglobin 9.5 GM/DL 7.6 GM/DL 7.2 GM/DL Hematocrit 27.5 % 22.9 % 21.9 % Mean Corpuscular Volume 93.0 FL 95.1 FL 95.4 FL Mean Corpuscular Hemoglobin 32.2 PG 31.4 PG 31.5 PG Mean Corpuscular Hemoglobin 34.7 % 33.0 % 33.0 % Concent Red Cell Distribution Width 17.4 % 18.1 % 18.3 % Platelet Count 105 TH/MM3 89 TH/MM3 97 TH/MM3 Mean Platelet Volume 7.6 FL 7.3 FL 7.9 FL Neutrophils (%) (Auto) 53.3 % 88.0 % Lymphocytes (%) (Auto) 28.0 % 7.0 % Monocytes (%) (Auto) 7.7 % 4.6 % Eosinophils (%) (Auto) 5.5 % 0.0 % Basophils (%) (Auto) 5.5 % 0.4 % Neutrophils # (Auto) 3.1 TH/MM3 13.6 TH/MM3 Lymphocytes # (Auto) 1.6 TH/MM3 1.1 TH/MM3 Monocytes # (Auto) 0.4 TH/MM3 0.7 TH/MM3 Eosinophils # (Auto) 0.3 TH/MM3 0.0 TH/MM3 Basophils # (Auto) 0.3 TH/MM3 0.1 TH/MM3 CBC Comment DIFF FINAL AUTO DIFF Differential Comment FINAL DIFF MANUAL Prothrombin Time 12.7 SEC Prothromb Time International 1.1 RATIO Ratio Activated Partial 28.0 SEC Thromboplast Time Sodium Level 147 MEQ/L 148 MEQ/L Potassium Level 4.0 MEQ/L 4.6 MEQ/L Chloride Level 115 MEQ/L 118 MEQ/L Carbon Dioxide Level 23.2 MEQ/L 21.3 MEQ/L Anion Gap 9 MEQ/L 9 MEQ/L Blood Urea Nitrogen 10 MG/DL 15 MG/DL Creatinine 0.92 MG/DL 1.15 MG/DL Estimat Glomerular Filtration 64 ML/MIN 49 ML/MIN Rate Random Glucose 102 MG/DL 136 MG/DL Calcium Level 8.0 MG/DL 7.4 MG/DL Total Bilirubin 0.7 MG/DL 1.6 MG/DL Aspartate Amino Transf 20 U/L 14 U/L (AST/SGOT) Alanine Aminotransferase 14 U/L 11 U/L (ALT/SGPT) Alkaline Phosphatase 180 U/L 139 U/L Troponin I LESS THAN 0.02 NG/ML Total Protein 6.2 GM/DL 5.6 GM/DL Albumin 2.6 GM/DL 2.4 GM/DL Lipase 936 U/L 351 U/L Differential Total Cells 100 Counted Neutrophils % (Manual) 54 % Band Neutrophils % 39 % Lymphocytes % 4 % Monocytes % 2 % Eosinophils % 1 % Neutrophils # (Manual) 14.3 TH/MM3 Platelet Estimate LOW Platelet Morphology Comment NORMAL Protein Corrected Calcium 8.2 MG/DL Physical Examination HEENT: PERRLA. Normocephalic; atraumatic; no jaundice. NECK: Neck is supple, no JVD, no lymphadenopathy. CHEST: Diffuse crackles. CARDIAC: RRR ABDOMEN: Distended, diffuse abdominal tenderness; no hepatosplenomegaly; bowel sounds x 4 quadrants EXTREMITIES: No clubbing, cyanosis, or edema. SKIN: Normal; no rash; no jaundice. VACATION SALES ADVISOR: No focal deficits; A&O x 3. Assessment and Plan Plan ASSESSMENT: -Pancreatitis, Lipase initially 936 on admission, 351 today. -Thrombocytopenia, Chronic. 105 on admission, 97 today. No active bleeding. -Cirrhosis, History of alcohol abuse, Hep C. Abdomen/Pelvis CT-->Cirrhotic liver with moderate abdominal ascites. Dilated gallbladder containing intraluminal density and gallstones. Wall thickening within the sigmoid colon with diverticulosis. AST 14, ALT 11, ALK PHOS 139. Gallbladder US 11/07/2016--> Ascites present and containing floating debris. The ascites is of heterogeneous attenuation on yesterday's CT suggesting there may be a recently hemorrhagic component. 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 -Acute cholecystitis? Gallbladder US 11/07/2016-->1. Wall thickening and pericholecystic fluid of the gallbladder and differential includes secondary changes from chronic liver disease and acute cholecystitis. Equivocal sonographic Myles sign as the patient complains of pain during the entire scan. Sludge is in the gallbladder. -Anemia, secondary to liver cirrhosis. Hgb 7.2, Hct 21.9. Has history of blood transfusions. Transfuse Hgb <7 per primary. PLAN: -NPO -IVF -PPI IV -Monitor HH, trasfuse as needed -Monitor amylase, lipase -LFTs in am -Consult GS -Colonoscopy/EGD once stable -Further recommendations to follow based on results of above Patient seen and examined by Dr. Orr and myself and this note is written on his behalf. Katarzyna Gan Nov 07, 2016 16:16
[2016-11-07 16:27] VITALS: BP 160/66; PULSE 65; RESP 19; TEMP 98.5; O2SAT 94
[2016-11-07] MEDS: SODIUM CHLOR 0.9% 1000 ML INJ 1,000 ML IV SCH (18:00)
[2016-11-07 19:51] VITALS: BP 124/93; PULSE 86; RESP 18; TEMP 98.6; O2SAT 93
--- NOTE | 2016-11-07 20:49 | MB ---
cc: JUNIOR GUTIERREZ DATE OF CONSULTATION 11/07/2016 REASON FOR CONSULTATION Abnormal ultrasound. HISTORY OF THE PRESENT ILLNESS This is a 55-year-old lady who came into the emergency room complaining of some abdominal discomfort. She was found to be severely anemic, has a history of gastritis, esophagitis, cirrhosis, hepatitis C and apparently vomited some blood. She is thrombocytopenic as well and she was experiencing some abdominal discomfort. CT scan showed some sludge in the gallbladder with the cirrhosis and some ascites, surgery was consulted for evaluation. She complains of midepigastric pain and nausea. Her history is somewhat unreliable. She has been seen by the medical team and GI. PAST MEDICAL HISTORY 1. Says she has heart problems, lung problems. 2. She has liver problems, hepatitis C, cirrhosis. 3. Three months ago had some ankle surgery where she broke her leg. 4. She complains of hard of hearing and she has hearing aids. 5. She has an active cough which is productive during the exam and her complaint. PHYSICAL EXAMINATION GENERAL: On physical exam she is laying on her side. She is holding midepigastric region. She is somewhat unkempt. with a hacking cough. hen she calms down she looks fairly comfortable. I think she is a little anxious. NECK: Supple. CHEST: Clear to the right decrease to the left. Has a hacking cough HEART: Tachycardic. W ABDOMEN: she complains of soreness all over but I distract her, she appears to have just mid epigastric tenderness. There are good bowel sounds. EXTREMITIES: Bruising on the right leg from her recent surgery, some mild edema. NEUROLOGICAL: She is alert, somewhat cooperative. looks slightly uncomfortable LABORATORY DATA She had a white count done yesterday that was 5, today it is 19. H&H of 7 and 21. Her H&H was 9 and 27 yesterday and in the beginning of October it was 10 and 30. Chemistry shows creatinine of 1.5, otherwise normal. Her calcium is 10 in September. She has had serology showing hepatitis C. Total bilirubin is 1.6. Lipase was 351. IMAGING STUDIES She had a CT of her abdomen which showed some ascites, probable portal vein thrombosis. A right inguinal hernia. Cirrhosis of liver. Dilated gallbladder with some mild thickening of the sigmoid colon with diverticulosis. She had ultrasound of the gallbladder that showed thickening of the gallbladder, some fluid, questionable Myles's sign, ascites and mentioned something about some hemorrhagic component in the gallbladder and chronic thrombosis of the portal vein. ASSESSMENT A 55-year-old female with a somewhat complex history with hepatitis C, cirrhosis, upper GI bleed, esophageal and gastric varices with findings on ultrasound and CT scan of mild thickening of the gallbladder. She also has a hacking cough. PLAN At this time I think she is a high risk because of her cirrhosis. I would treat her medically at this time. GI is seeing her consideration of endoscopy to evaluate her upper GI bleed. At this time I would treat her with antibiotics. I would get a chest x-ray because of her severe cough, see if she has pneumonia in addition to her all of her other problems. I will follow along during this admission. Junior Gutierrez MD JCHARLOTTE/LORENZO /7:07 PM /8:35 PM MTDD
--- NOTE | 2016-11-07 20:53 | RADRPT ---
EXAM DATE/TIME: 11/07/2016 20:25 [facility] COMPARISON: CHEST PA & LAT, August 20, 2016, 14:29. INDICATIONS : Pain, shortness of breath, and cough. MEDICAL HISTORY : Hypertension. SURGICAL HISTORY : None. ENCOUNTER: Initial ACUITY: 4 - 6 days PAIN SCORE: 5/10 LOCATION: Bilateral chest FINDINGS: PA and lateral views of the chest demonstrate diminished lung volumes. Patchy densities in lingula. R ight lung is clear. Osseous structures are intact. CONCLUSION: Patchy infiltrates lingula. Ha Carey MD on November 07, 2016 at 20:50 Board Certified Radiologist. This report was verified electronically.
[2016-11-07] MEDS ORDERED: traZODone HCL 50 MG TAB PO SCH (21:00)
[2016-11-07 21:16] LABS: HEMATOCRIT 23.4 % (35.0-46.0); MEAN CELL VOLUME 96.8 FL (80.0-100.0); MEAN CORPUSCULAR HEMOGLOBIN 32.5 PG (27.0-34.0); MEAN CORPUSCULAR HGB CONC 33.6 % (32.0-36.0); PLATELET COUNT 137 TH/MM3 (150-450); RED BLOOD COUNT 2.41 MIL/MM3 (4.00-5.30); RED CELL DISTRIBUTION WIDTH 18.5 % (11.6-17.2); REVIEW FLAG FINAL; WHITE BLOOD COUNT 15.1 TH/MM3 (4.0-11.0)
[2016-11-07] MEDS ORDERED: RESP: ALBUTEROL 2.5 MG/IPRATROPIUM 0.5 MG NEB (PRN) NEB (23:30)
[2016-11-07 23:42] VITALS: BP 101/60; PULSE 79; RESP 18; TEMP 96.9; O2SAT 94
[2016-11-07] MEDS ORDERED: Vancomycin Consult Pharmacy 1 EA OTHER SCH (23:45)
[2016-11-08] VITALS (12 sets, daily range): BP systolic 80–130; BP diastolic 46–70; PULSE 80–98; RESP 16–24; TEMP 97.5–99; O2SAT 93–98
[2016-11-08] MEDS ORDERED: VANCOMYCIN INJ 1,200 MG in SODIUM CHLOR 0.9% 250 ML INJ 250 ML IV ONE ×2
[2016-11-08] MEDS: guaiFENesin E.R. 600 MG TAB PO SCH ×2 (00:33→08:46)
[2016-11-08] MEDS: RESP: ALBUTEROL 2.5 MG/IPRATROPIUM 0.5 MG NEB (SCH) NEB ×5 (01:13→21:00)
[2016-11-08] MEDS: PIPERACIL-TAZO 4.5 GM PREMIX 100 ML IV SCH ×4 (04:00→22:24)
[2016-11-08] MEDS ORDERED: FUROSEMIDE 20 MG/2 ML VIAL IV PUSH ONE (04:00)
--- NOTE | 2016-11-08 04:38 | RADRPT ---
EXAM DATE/TIME: 11/08/2016 04:27 [facility] COMPARISON: CHEST PA & LAT, November 07, 2016, 20:25. INDICATIONS : Cough. MEDICAL HISTORY : Hypertension. SURGICAL HISTORY : None. ENCOUNTER: Subsequent ACUITY: 2 days PAIN SCORE: 0/10 LOCATION: Bilateral chest FINDINGS: There is subsegmental air space disease at the lung bases. Slightly increased consolidation left lung base since 326. No significant effusion. No pneumothorax. CONCLUSION: 1. Subsegmental basal airspace disease, slightly increased on the left since November 07. Hua Pennington MD on November 08, 2016 at 4:34 Board Certified Radiologist. This report was verified electronically.
[2016-11-08 06:11] LABS: ALKALINE PHOSPHATASE 98 U/L (45-117); ALT (GPT) 17 U/L (10-53); AMYLASE 60 U/L (25-115); ANION GAP 13 MEQ/L (5-15); AST (GOT) 27 U/L (15-37); BICARBONATE 13.6 MEQ/L (21.0-32.0); CHLORIDE 116 MEQ/L (98-107); GLOMERULAR FILTRATION RATE 30 ML/MIN (>89); POTASSIUM 4.7 MEQ/L (3.5-5.1); SODIUM (NA) 143 MEQ/L (136-145); TOTAL BILIRUBIN ADULT 3.5 MG/DL (0.2-1.0)
[2016-11-08 06:13] LABS: BLOOD UREA NITROGEN 28 MG/DL (7-18)
[2016-11-08 06:48] LABS: AUTOMATED NEUTROPHIL # 11.9 TH/MM3 (1.8-7.7); BASOPHIL # 0.1 TH/MM3 (0-0.2); BASOPHIL % 0.5 % (0.0-2.0); EOSINOPHIL # 0.1 TH/MM3 (0-0.4); HEMO FLAGS DIFF FINAL; LYMPH % 8.2 % (9.0-44.0); LYMPHOCYTE # 1.1 TH/MM3 (1.0-4.8); MEAN CELL VOLUME 96.7 FL (80.0-100.0); MEAN CORPUSCULAR HEMOGLOBIN 32.5 PG (27.0-34.0); MEAN CORPUSCULAR HGB CONC 33.6 % (32.0-36.0); MONO % 4.2 % (0.0-8.0); NEUT % 86.1 % (16.0-70.0); PLATELET COUNT 111 TH/MM3 (150-450); RED BLOOD COUNT 2.17 MIL/MM3 (4.00-5.30); RED CELL DISTRIBUTION WIDTH 18.4 % (11.6-17.2); WHITE BLOOD COUNT 13.9 TH/MM3 (4.0-11.0)
[2016-11-08] MEDS ORDERED: DEXTROSE 50% IN WATER 50 ML SYRINGE IV ONE (07:00)
[2016-11-08] MEDS ORDERED: SODIUM CHLOR 0.9% 1000 ML INJ 1,000 ML IV ONE ×4 (07:15→12:30)
[2016-11-08] MEDS ORDERED: DEXT 5%-NACL 0.45% 1000 ML INJ 1,000 ML IV SCH (07:30)
--- NOTE | 2016-11-08 08:39 | HHI.PR ---
Subjective Remarks Follow-up for abdominal pain. The patient continues to report generalized abdominal pain. She had vomiting yesterday, none overnight. No nausea currently, but she doesn't feel up to trying clear liquids at this time. No diarrhea. She denies any fevers or chills. She has been having a nonproductive cough. Hasn't been using incentive spirometry. She does report that sometimes it feels like she has difficulty urinating, denies any dysuria. She had recent surgery on her right leg, requesting a walker as she is nonweightbearing. Objective Vitals Vital Signs Date Time Temp Pulse Resp B/P Pulse Ox O2 Delivery O2 Flow Rate FiO2 11/08/16 04:28 99.0 89 18 118/59 95 11/08/16 01:13 95 Nasal Cannula 2.00 11/07/16 23:42 96.9 79 18 101/60 94 11/07/16 19:51 98.6 86 18 124/93 93 11/07/16 16:27 98.5 65 19 160/66 94 11/07/16 12:09 98.0 79 19 130/70 96 I/O 11/07/16 11/07/16 11/07/16 11/08/16 11/08/16 11/08/16 07:00 15:00 23:00 07:00 15:00 23:00 Intake Total 610 ml 450 ml Balance 610 ml 450 ml Intake IV Total 610 ml 450 ml # Voids 4 Result Diagram: 11/08/16 0454 11/08/16 0454 Imaging Last Impressions Chest X-Ray 11/08/16 0000 Signed Impressions: Service Date/Time: Tuesday, November 08, 2016 04:27 - CONCLUSION: 1. Subsegmental basal airspace disease, slightly increased on the left since November 07. Hua Pennington MD Gall Bladder Ultrasound 11/07/16 0000 Signed Impressions: Service Date/Time: Monday, November 07, 2016 09:48 - CONCLUSION: 1. Wall thickening and pericholecystic fluid of the gallbladder and differential includes secondary changes from chronic liver disease and acute cholecystitis. Equivocal sonographic Myles sign as the patient complains of pain during the entire scan. Sludge is in the gallbladder. 2. Ascites present and containing floating debris. The ascites is of heterogeneous attenuation on yesterday's CT suggesting there may be a recently hemorrhagic component. 3. 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 Tony Hdez MD Abdomen/Pelvis CT 11/06/[id number] Signed Impressions: Service Date/Time: Sunday, November 06, 2016 20:50 - CONCLUSION: 1. Cirrhotic liver with moderate abdominal ascites. 2. Dilated gallbladder containing intraluminal density and gallstones. 3. Wall thickening within the sigmoid colon with diverticulosis. Ha Carey MD Objective Remarks GENERAL: Well-developed well-nourished. In no acute distress. SKIN: Warm and dry. No lesions noted. HEENT: Normocephalic. Pupils equal and round. Mucous membranes pink and moist. CARDIOVASCULAR: Regular rate and rhythm. No murmur appreciated. RESPIRATORY: No accessory muscle use. Clear to auscultation. Breath sounds equal bilaterally. GASTROINTESTINAL: Abdomen soft, generalized TTP, voluntary guarding, nondistended. Bowel sounds x4. MUSCULOSKELETAL: No obvious deformities. No clubbing or cyanosis. No edema. NEUROLOGICAL: Awake and alert. No focal neurological deficits. Moves upper and lower extremities spontaneously. Normal speech. PSYCHIATRIC: Appropriate mood and affect; insight and judgment normal. A/P Problem List: (1) Pancreatitis ICD Code: K85.90 Status: Resolved (2) Cirrhosis of liver ICD Code: K74.60 Status: Chronic (3) Thrombocytopenia ICD Code: D69.6 Status: Chronic (4) HTN (hypertension) ICD Code: I10 Status: Resolved (5) Abdominal pain ICD Code: R10.9 Status: Acute Assessment and Plan 55-year-old female with a PMH of HTN, Anxiety, Depression, Hepatitis C, Cirrhosis, h/o GI Bleed and Tobacco Abuse who presented to the ER with complaints of severe epigastric pain x3 days w/ associated nausea and non- bloody emesis. Intractable Abdominal Pain/Nausea/Vomiting with Acute Pancreatitis: concern for SBP and/or Acute Cholecystitis. Labs and imaging reviewed: Lipase 936. WBC 15.4K. Tbili 1.6, AST 14, ALT 11, Alk Phos 139. CT Abd/Pelvis w/ cirrhosis, moderate ascites, distended gallbladder w/ stones, and wall thickening of sigmoid colon w/ diverticulosis. Gallbladder ultrasound showed wall thickening and pericholecystic fluid as well as sludge in the gallbladder; ascites present and containing floating debris, with suggestion of present hemorrhagic component; cirrhosis and chronic- appearing thrombosis of the portal vein. -Continue IVF, Protonix IV, antiemetics/analgesics as needed, requiring IV morphine. -Repeat lipase improved to normal limits -Diet per GI -Consulted gastroenterology, appreciate input -General surgery consulted, recommended medical management -Continue on IV Zosyn Acute on Chronic Normocytic Anemia: secondary to liver cirrhosis, with hx of requiring transfusions in the past. Hgb 9.5 upon arrival, dropped to 7. -Monitor CBC -Transfuse if Hgb < 7.0 Acute kidney injury: Creatinine increased to 1.77 -Increase IVF -Check UA -Monitor BMP Metabolic acidosis: With decreased bicarbonate increased lactic acid. Afebrile. -Infection vs dehydration vs other -IVF and monitor BMP -Check blood cultures Abnormal chest x-ray: Chest x-ray 11/07, read with patchy infiltrates in the lingula. Repeat chest x-ray 11/08 with subsegmental basilar airspace disease. -Continue antibiotics as above. Incentive spirometry. Cirrhosis: H/o Alcohol Abuse and Hepatitis C. CT Abd/Pelvis w/ moderate ascites, abdomen soft. LFTs elevated. -Resumed home Propranolol. Hold Aldactone with VIMAL. Thrombocytopenia: Chronic upon review of previous labs. Likely secondary to cirrhosis as above. No active bleeding. -Will monitor CBC. HTN: BP on arrival 204/89, HR 61, likely compounded by complaints of pain. BP improved -Continue home propranolol. Continue to monitor. Recent right tib-fib fracture: -Continue PT DVT Prophylaxis: Pharmacologic contraindication due to thrombocytopenia and h/ o GI Bleed. Discussed with Dr. Young, will further evaluate the patient Attending Statement The exam, history, and the medical decision-making described in the above note were completed with the assistance of the mid-level provider. I reviewed and agree with the findings presented. I attest that I had a [id number] encounter with the patient on the same day, and personally performed and documented my assessment and findings in the medical record. Problem Qualifiers (1) Pancreatitis: Qualified Code: K85.00 - Idiopathic acute pancreatitis without infection or necrosis (2) Cirrhosis of liver: (3) Abdominal pain: Qualified Code: R10.84 - Generalized abdominal pain Ian Gill Nov 08, 2016 08:39 Tom Young MD Nov 14, 2016 07:06
[2016-11-08] MEDS: GABAPENTIN 300 MG CAP PO SCH ×2 (08:46→12:01)
[2016-11-08] MEDS: PROPRANOLOL HCL 20 MG TAB PO SCH (08:46)
[2016-11-08] MEDS: PANTOPRAZOLE SODIUM 40 MG VIAL IV PUSH SCH ×2 (08:46→22:24)
[2016-11-08] MEDS: SODIUM CHLORIDE 0.9% FLUSH 5 ML FLUSH FLUSH SCH ×2 (08:47→22:25)
[2016-11-08] MEDS: SODIUM CHLOR 0.9% 1000 ML INJ 1,000 ML IV SCH ×3 (08:49→16:55)
[2016-11-08] MEDS: MORPHINE SULFATE 4 MG/ML INJ IV PRN ×2 (08:52→17:33)
[2016-11-08 10:03] LABS: LACTIC ACID GHOST NOT REPORTABLE
[2016-11-08] MEDS ORDERED: SODIUM CHLOR 0.9% 250 ML INJ 250 ML IV ONE (10:15)
[2016-11-08] MEDS ORDERED: VANCOMYCIN INJ 1,000 MG in SODIUM CHLOR 0.9% 250 ML INJ 250 ML IV ONE (10:15)
[2016-11-08] MEDS ORDERED: Vancomycin Consult Pharmacy 1 EA OTHER SCH (10:15)
[2016-11-08] MEDS ORDERED: THIAMINE HCL 200 MG/2 ML VIAL IM ONE (10:15)
[2016-11-08 11:10] LABS: BLOOD GAS BASE EXCESS -12.5 mmol/L (-2-2); BLOOD GAS HCO3 13 mmol/L (22-26); BLOOD GAS METHEMOGLOBIN 2.1 % (0-2); BLOOD GAS O2 HGB SATURATION 90 % (90-100); BLOOD GAS OXYGEN CONTENT 8.5 Vol % (12.0-20.0); BLOOD GAS PCO2 32 mmHg (38-42); BLOOD GAS PO2 75 mmHG (61-120); BLOOD GAS TOTAL HGB 6.6 G/DL (12.0-16.0); CRITICAL VALUE YES; DRAW SITE RT RADIAL; FIO2 21 %; NUMBER OF ARTERIAL PUNCTURES 2; OXYGEN DEVICE ROOM AIR; STAT YES; TEMP CORR TO 98.6
[2016-11-08 11:43] LABS: INTERNATIONAL NORMALIZED RATIO 1.5 RATIO; PROTHROMBIN TIME - PATIENT 16.7 SEC (9.8-11.6)
[2016-11-08 11:59] LABS: BICARBONATE 15.1 MEQ/L (21.0-32.0); POTASSIUM 4.5 MEQ/L (3.5-5.1)
--- NOTE | 2016-11-08 12:20 | HHI.GIFU ---
Subjective Remarks Patient resting in bed. Moderate diffuse abdominal tenderness. States she has nausea without vomiting. Denies any active bleeding such as melena or hematochezia. Nurse reports that she is being transferred to the unit for "septic shock." (Annia Roche) Objective Vitals I&O Vital Signs Date Time Temp Pulse Resp B/P Pulse Ox O2 Delivery O2 Flow Rate FiO2 11/08/16 11:54 82/50 11/08/16 11:40 97.5 80 16 80/46 96 11/08/16 10:50 94 Nasal Cannula 2.00 11/08/16 09:11 20 11/08/16 08:27 97.9 86 20 130/68 94 11/08/16 04:28 99.0 89 18 118/59 95 11/08/16 01:13 95 Nasal Cannula 2.00 11/07/16 23:42 96.9 79 18 101/60 94 11/07/16 19:51 98.6 86 18 124/93 93 11/07/16 16:27 98.5 65 19 160/66 94 11/07/16 12:09 98.0 79 19 130/70 96 I/O 11/07/16 11/07/16 11/07/16 11/08/16 11/08/16 11/08/16 07:00 15:00 23:00 07:00 15:00 23:00 Intake Total 610 ml 450 ml Balance 610 ml 450 ml Intake IV Total 610 ml 450 ml # Voids 4 Laboratory Laboratory Tests Test 11/07/16 11/07/16 11/08/16 11/08/16 14:15 20:58 04:54 05:45 White Blood Count 19.1 15.1 13.9 Red Blood Count 2.30 2.41 2.17 Hemoglobin 7.2 7.8 7.1 Hematocrit 21.9 23.4 21.0 Mean Corpuscular Volume 95.4 96.8 96.7 Mean Corpuscular Hemoglobin 31.5 32.5 32.5 Mean Corpuscular Hemoglobin 33.0 33.6 33.6 Concent Red Cell Distribution Width 18.3 18.5 18.4 Platelet Count 97 137 111 Mean Platelet Volume 7.9 8.3 8.4 Neutrophils (%) (Auto) 86.1 Lymphocytes (%) (Auto) 8.2 Monocytes (%) (Auto) 4.2 Eosinophils (%) (Auto) 1.0 Basophils (%) (Auto) 0.5 Neutrophils # (Auto) 11.9 Lymphocytes # (Auto) 1.1 Monocytes # (Auto) 0.6 Eosinophils # (Auto) 0.1 Basophils # (Auto) 0.1 CBC Comment DIFF FINAL Differential Comment Sodium Level 143 Potassium Level 4.7 Chloride Level 116 Carbon Dioxide Level 13.6 Anion Gap 13 Blood Urea Nitrogen 28 Creatinine 1.77 Estimat Glomerular Filtration 30 Rate Random Glucose 67 Calcium Level 7.8 Total Bilirubin 3.5 Aspartate Amino Transf 27 (AST/SGOT) Alanine Aminotransferase 17 (ALT/SGPT) Alkaline Phosphatase 98 Total Protein 5.9 Albumin 2.3 Amylase Level 60 Lipase 180 Lactic Acid Level 3.4 B-Type Natriuretic Peptide 225 Test 11/08/16 11/08/16 07:56 11:00 Lactic Acid Level 4.6 4.0 Prothrombin Time 16.7 Prothromb Time International 1.5 Ratio Blood Gas Puncture Site RT RADIAL Blood Gas Patient Temperature 98.6 Blood Gas HCO3 13 Blood Gas Base Excess -12.5 Blood Gas Oxygen Saturation 90 Arterial Blood pH 7.24 Arterial Blood Partial 32 Pressure CO2 Arterial Blood Partial 75 Pressure O2 Arterial Blood Oxygen Content 8.5 Arterial Blood 3.0 Carboxyhemoglobin Arterial Blood Methemoglobin 2.1 Blood Gas Hemoglobin 6.6 Oxygen Delivery Device ROOM AIR Blood Gas Inspired Oxygen 21 Sodium Level 143 Potassium Level 4.5 Chloride Level 115 Carbon Dioxide Level 15.1 Anion Gap 13 Blood Urea Nitrogen 32 Creatinine 1.88 Estimat Glomerular Filtration 28 Rate Random Glucose 64 Calcium Level 7.7 B-Type Natriuretic Peptide 246 Blood Type B POSITIVE Date/Time Procedure Status Source Growth 11/08/16 10:20 Aerobic Blood Culture Received Blood Peripheral Pending 11/08/16 10:20 Anaerobic Blood Culture Received Blood Peripheral Pending Imaging Last Impressions Chest X-Ray 11/08/16 0000 Signed Impressions: Service Date/Time: Tuesday, November 08, 2016 04:27 - CONCLUSION: 1. Subsegmental basal airspace disease, slightly increased on the left since November 07. Hua Pennington MD Gall Bladder Ultrasound 11/07/16 0000 Signed Impressions: Service Date/Time: Monday, November 07, 2016 09:48 - CONCLUSION: 1. Wall thickening and pericholecystic fluid of the gallbladder and differential includes secondary changes from chronic liver disease and acute cholecystitis. Equivocal sonographic Myles sign as the patient complains of pain during the entire scan. Sludge is in the gallbladder. 2. Ascites present and containing floating debris. The ascites is of heterogeneous attenuation on yesterday's CT suggesting there may be a recently hemorrhagic component. 3. 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 Tony Hdez MD Abdomen/Pelvis CT 11/06/161927 Signed Impressions: Service Date/Time: Sunday, November 06, 2016 20:50 - CONCLUSION: 1. Cirrhotic liver with moderate abdominal ascites. 2. Dilated gallbladder containing intraluminal density and gallstones. 3. Wall thickening within the sigmoid colon with diverticulosis. Ha Carey MD Physical Exam HEENT: Normocephalic; atraumatic; no jaundice. CHEST: CTA CARDIAC: RRR, hypotensive ABDOMEN: Soft, moderate diffuse tenderness, hepatosplenomegaly; bowel sounds are present in all four quadrants. EXTREMITIES: No clubbing, cyanosis, or edema. SKIN: Normal; no rash; no jaundice. CALL BOX WIRER: No focal deficits; lethargic and oriented times three. (Annia Roche) Assessment and Plan Plan ASSESSMENT: - Acute Pancreatitis. Abdomen/Pelvis CT (11/06/16)----> 1. Cirrhotic liver with moderate abdominal ascites. 2. Dilated gallbladder containing intraluminal density and gallstones. 3. Wall thickening within the sigmoid colon with diverticulosis. Gall Bladder Ultrasound (11/07/16)------> 1. Wall thickening and pericholecystic fluid of the gallbladder and differential includes secondary changes from chronic liver disease and acute cholecystitis. Equivocal sonographic Myles sign as the patient complains of pain during the entire scan. Sludge is in the gallbladder. 2. Ascites present and containing floating debris. The ascites is of heterogeneous attenuation on yesterday's CT suggesting there may be a recently hemorrhagic component. 3. 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 Lipase improving. Lipase improving 13.9. NPO. IVF. - Cholecystitis. GS following, high risk for surgery, recommends treating with abx. Lactic acid 4.0. WBC improving. Hypotensive. - Anemia. HH 7.1/21.0. EGD (07/28/16)---> single non bleeding ulcer 3-7 mm in size gastric antrum. Pathology with reactive/chemical gastropathy in a background of mild chronic gastritis with intestinal metaplasia and associated granulation tissue, suggestive of ulcer base. Negative for H. Pylori. Colonoscopy (10/10/15)----> Suboptimal preparation of the colon but no gross lesion was noted in the colon. - Thrombocytopenia, Chronic. 111 - Cirrhosis, History of alcohol abuse, Hep C, Chronic portal vein thrombosis. T. Bili 3.5, AST 27, ALT 17, ALk PHosph 98. - Sepsis, Lactic acidosis. Zosyn, Vancomycin. Getting fluid bolus. Being transferred to unit PLAN: - Clear liquids - Agree with transfusion - Cont. PPI - Cont. aggressive IVF - Cont. Abx - Monitor HH - Transfuse as necessary - CBC, CMP, Lipase in am - GS following - Consider EGD +/- Colonoscopy once stable- currently hypotensive, septic, no obvious active bleeding. - Further recommendations to follow based on results of above - Patient seen and examined by Dr. Tracey and myself and this note is written on his behalf. (Annia Roche) Physician Comments Patient seen and examined Agree with above Continue with current supportive care Stop alcohol Monitor labs Endoscopy when more stable or as an outpatient (Choco Tracey MD) Annia Roche Nov 08, 2016 12:20 Choco Tracey MD Nov 08, 2016 22:52
[2016-11-08] MEDS ORDERED: HYDROCORTISONE SOD SUCCINATE 100 MG VIAL IV PUSH SCH (13:00)
[2016-11-08] MEDS ORDERED: CHLORHEXIDINE GLUCONATE 2 % 1 PACK (2 CLOTHS)(extra cloths) TOP PRN (13:15)
--- NOTE | 2016-11-08 14:36 | PD.CONS ---
[facility] Service Critical Care Medicine Consult Requested By Dr. Young Reason for Consult Septic shock Abdominal pain rule out ischemic bowel Acute cholecystitis LLL pneumonia Respiratory insufficiency Lactic acidemia Acute pancreatitis Acute kidney failure Anemia requiring transfusion Chronic portal vein thrombosis Liver cirrhosis Primary Care Physician Kim Lindquist MD History of Present Illness Patient is a 56-year-old female with past medical history significant for liver cirrhosis, hepatitis C, alcohol dependence, hypertension, history of GI bleed, tobacco abuse, anxiety and depression who was admitted to the hospitalist service on 11/06/16 with severe epigastric abdominal pain x 3 days duration, associated with nausea and vomiting. No diarrhea, no blood in stools. Abdominal/Pelvis CT showed Cirrhotic liver with moderate abdominal ascites, dilated gallbladder containing intraluminal density and gallstones, wall thickening within sigmoid colon with diverticulosis. Lipase initially 936 on admission, and had been gradually trending down. Ultrasound showed liver cirrhosis, chronic appearing portal vein thrombosis, gallbladder wall thickening and pericholecystic fluid with sludge. Clinical findings are concerning for acute cholecystitis. Gastroenterology and general surgery had been consulted. Patient had been receiving vancomycin and Zosyn. Today Halicat was called for hypotension, systolic blood pressures in the low 80s. Lactic acid was 4.6. Patient was started on IV fluid boluses a total of 3L and was moved emergently to the ICU. On my exam patient is lethargic remains borderline hypotensive and is receiving the third liter of IV fluid. Her ABG shows metabolic acidosis. 2 Amps of bicarbonate were given. Her clinical exam shows significant abdominal tenderness diffusely. Her presentation is concerning for mesenteric ischemia also. A stat CT abdomen pelvis with IV contrast and oral contrast had been ordered, D/W general surgery Dr. Gutierrez Review of Systems ROS Limitations: Other (as per [facility]) Past Family Social History Allergies: Coded Allergies: No Known Allergies (Unverified , 11/06/16) Past Medical History Hypertension Anxiety, Depression Hepatitis C Cirrhosis h/o GI Bleed Tobacco Abuse Alcohol dependence Past Surgical History Paracentesis Right ankle ORIF about 3 months ago Reported Medications Neurontin (Gabapentin) 300 Mg Cap 300 Mg PO TID 30 Days Propranolol (Propranolol HCl) 20 Mg Tab 20 Mg PO BID 30 Days Ibuprofen 400 Mg Tab 400 Mg PO Q6H PRN Tylenol Extra Strength (Acetaminophen) 500 Mg Tab 500 Mg PO Q4-6H PRN Protonix (Pantoprazole Sodium) 40 Mg Tab 40 Mg PO BID Aldactone (Spironolactone) 25 Mg Tab 25 Mg PO DAILY Trazodone (Trazodone HCl) 50 Mg Tab 50 Mg PO HS Active Ordered Medications Reviewed Family History Noncontributory Social History Drinks 2-3 drinks twice per week, despite diagnosis of Liver cirrhosis Smokes 1/4ppd Physical Exam Vital Signs Vital Signs Date Time Temp Pulse Resp B/P Pulse Ox O2 Delivery O2 Flow Rate FiO2 11/08/16 11:54 82/50 11/08/16 11:40 97.5 80 16 80/46 96 11/08/16 10:50 94 Nasal Cannula 2.00 11/08/16 09:11 20 11/08/16 08:27 97.9 86 20 130/68 94 11/08/16 04:28 99.0 89 18 118/59 95 11/08/16 01:13 95 Nasal Cannula 2.00 11/07/16 23:42 96.9 79 18 101/60 94 11/07/16 19:51 98.6 86 18 124/93 93 11/07/16 16:27 98.5 65 19 160/66 94 Physical Exam GENERAL: Awake and alert, in moderate distress due to pain. Moderately short of breath SKIN: Warm and dry. HEAD: Atraumatic. Normocephalic. EYES: Pupils equal and round. No scleral icterus. ENT: Mucous membranes pink and moist. NECK: Trachea midline. No JVD. CARDIOVASCULAR: Regular rate and rhythm. No murmur appreciated. Hypotensive RESPIRATORY: Positive accessory muscle use. Breath sounds equal bilaterally with course crackles GASTROINTESTINAL: Abdomen diffusely tender, predominantly RUQ and epigastrium. No rebound or guarding MUSCULOSKELETAL: Well-healing right ankle surgical scar NEUROLOGICAL: Awake and alert. No focal deficits Laboratory Laboratory Tests Test 11/07/16 11/08/16 11/08/16 11/08/16 20:58 04:54 05:45 07:56 White Blood Count 15.1 13.9 Red Blood Count 2.41 2.17 Hemoglobin 7.8 7.1 Hematocrit 23.4 21.0 Mean Corpuscular Volume 96.8 96.7 Mean Corpuscular Hemoglobin 32.5 32.5 Mean Corpuscular Hemoglobin 33.6 33.6 Concent Red Cell Distribution Width 18.5 18.4 Platelet Count 137 111 Mean Platelet Volume 8.3 8.4 Neutrophils (%) (Auto) 86.1 Lymphocytes (%) (Auto) 8.2 Monocytes (%) (Auto) 4.2 Eosinophils (%) (Auto) 1.0 Basophils (%) (Auto) 0.5 Neutrophils # (Auto) 11.9 Lymphocytes # (Auto) 1.1 Monocytes # (Auto) 0.6 Eosinophils # (Auto) 0.1 Basophils # (Auto) 0.1 CBC Comment DIFF FINAL Differential Comment Sodium Level 143 Potassium Level 4.7 Chloride Level 116 Carbon Dioxide Level 13.6 Anion Gap 13 Blood Urea Nitrogen 28 Creatinine 1.77 Estimat Glomerular Filtration 30 Rate Random Glucose 67 Calcium Level 7.8 Total Bilirubin 3.5 Aspartate Amino Transf 27 (AST/SGOT) Alanine Aminotransferase 17 (ALT/SGPT) Alkaline Phosphatase 98 Total Protein 5.9 Albumin 2.3 Amylase Level 60 Lipase 180 Lactic Acid Level 3.4 4.6 B-Type Natriuretic Peptide 225 Test 11/08/16 11:00 Prothrombin Time 16.7 Prothromb Time International 1.5 Ratio Blood Gas Puncture Site RT RADIAL Blood Gas Patient Temperature 98.6 Blood Gas HCO3 13 Blood Gas Base Excess -12.5 Blood Gas Oxygen Saturation 90 Arterial Blood pH 7.24 Arterial Blood Partial 32 Pressure CO2 Arterial Blood Partial 75 Pressure O2 Arterial Blood Oxygen Content 8.5 Arterial Blood 3.0 Carboxyhemoglobin Arterial Blood Methemoglobin 2.1 Blood Gas Hemoglobin 6.6 Oxygen Delivery Device ROOM AIR Blood Gas Inspired Oxygen 21 Sodium Level 143 Potassium Level 4.5 Chloride Level 115 Carbon Dioxide Level 15.1 Anion Gap 13 Blood Urea Nitrogen 32 Creatinine 1.88 Estimat Glomerular Filtration 28 Rate Random Glucose 64 Lactic Acid Level 4.0 Calcium Level 7.7 B-Type Natriuretic Peptide 246 Blood Type B POSITIVE Antibody Screen NEGATIVE Crossmatch Leukocyte-Reduced Red Blood Cells Blood Bank Comment Date/Time Procedure Status Source Growth 11/08/16 10:20 Aerobic Blood Culture Received Blood Peripheral Pending 11/08/16 10:20 Anaerobic Blood Culture Received Blood Peripheral Pending Result Diagram: 11/08/16 0454 11/08/16 1100 Imaging Abdominal/Pelvis CT showed Cirrhotic liver with moderate abdominal ascites, dilated gallbladder containing intraluminal density and gallstones, wall thickening within sigmoid colon with diverticulosis. Lipase initially 936 on admission, and had been gradually trending down. Ultrasound showed liver cirrhosis, chronic appearing portal vein thrombosis, gallbladder wall thickening and pericholecystic fluid with sludge. Chest x-ray shows left lower lobe infiltrates Septic Shock Reassessment Heart: Regular rate and rhythm Lungs: Course, Crackles Skin: Warm Peripheral Pulses: Weak Right Radial Weak Left Radial Assessment and Plan Assessment and Plan NEURO: Alcohol dependence -Watch for alcohol, supplement Thiamine -As needed morphine for pain RESP: Respiratory insufficiency Left lower lobe pneumonia COPD -Continue DuoNeb every 6 hours and when necessary -Broad-spectrum antibiotics as below -Currently on hydrocortisone 100 mg IV every 8 hours CV: Septic shock Lactic acidosis -Normal saline IV fluids 3 L bolus and 150 ml per hour -Continue stress dose steroids -Levophed if needed to keep map above 65 GI: Abdominal pain rule out mesenteric ischemia Probable acute cholecystitis Acute pancreatitis Liver cirrhosis Ascites, with possible hemorrhagic component -CT chest abdomen pelvis with IV and oral contrast to better evaluate for mesenteric ischemia and pancreatitis -Gen. surgery Dr. Gutierrez and GI Dr. Tracey following -IV Protonix 40 twice a day -Broad-spectrum antibiotics : Acute kidney failure -Monitor renal function closely. Snyder catheter. Continue aggressive fluid resuscitation -May need nephrology consult ID: Septic shock Acute cholecystitis Left lower lobe pneumonia -Broad-spectrum antibiotics with renally adjusted vancomycin, Zosyn and Levaquin -Follow up on blood and sputum culture HEME: Anemia requiring transfusion Thrombocytopenia Coagulopathy -Given 1 unit PRBC -Monitor CBC, CMP, Coags ENDO: -Electrolytes replacement as needed PROPH: -Bilateral lower extremity SCDs. Avoid chemical prophylaxis due to anemia, coagulopathy LINES: -Utilize peripheral IVs, central line if needed CC time 90 min excluding procedure Code Status Full Discussed Condition With Allen Ferrell Dr., MD Nov 08, 2016 14:36 Allen Adams MD Nov 08, 2016 14:36
[2016-11-08 14:41] LABS: BACTERIA, URINE RARE /hpf; BLOOD, URINE NEG (NEG); GLUCOSE,URINE NEG (NEG); HYALINE CAST, URINE 1 /lpf (RARE); KETONE, URINE NEG (NEG); NITRITE,URINE NEG (NEG); SQUAMOUS EPITHELIAL CELL URINE 1 /hpf (0-5); URINE COLOR DARK-YELLOW (YELLW/STRAW)
[2016-11-08 14:47] LABS: COMMENT (UR) CULT NOT INDICATED; CULTURE IF INDICATED CULT NOT INDICATED
[2016-11-08] MEDS ORDERED: DIATRIZOATE MEGLUM/DIATRIZOATE SOD 9 ML CUP PO ONE (15:00)
--- NOTE | 2016-11-08 15:17 | RADRPT ---
EXAM DATE/TIME: 11/08/2016 13:59 [facility] COMPARISON: No previous studies available for comparison. INDICATIONS : Bilateral leg swelling. MEDICAL HISTORY : Hypertension. Osteoarthritis. Cirrhosis. Hep C. Abdominal pain. Right inguinal hernia. GI bleed. Cdif f. SURGICAL HISTORY : section. Paracentesis. ORIF right leg. Blood transfusions. ENCOUNTER: Subsequent ACUITY: 1 day PAIN SCORE: Non-responsive LOCATION: Bilateral leg. TECHNIQUE: Venous ultrasound of the left and right leg was performed from the inguinal ligament to the proximal calf. Real-time, color Doppler and spectral tracing, compression and augmentation techniques were us ed. FINDINGS: RIGHT LEG: There is normal compressibility of the deep venous system from the inguinal region to the proximal ca lf. No echogenic clot is seen in the lumen of the common femoral, femoral, popliteal, and posterior tibial veins. There is a normal response of the venous system to proximal and distal augmentation an d respiration. LEFT LEG: There is normal compressibility of the deep venous system from the inguinal region to the proximal ca lf. No echogenic clot is seen in the lumen of the common femoral, femoral, popliteal, and posterior tibial veins. There is a normal response of the venous system to proximal and distal augmentation an d respiration. CONCLUSION: Negative for deep venous thrombosis.. Ramos Lo MD FACR on November 08, 2016 at 15:15 Board Certified Radiologist. This report was verified electronically.
[2016-11-08] MEDS: LEVOFLOXACIN 750 MG PREMIX INJ 150 ML IV SCH (15:26)
[2016-11-08] MEDS ORDERED: TERBUTALINE INJ 1 MG/ML AMP SQ PRN (15:30)
[2016-11-08] MEDS ORDERED: NOREPINEPHRINE-DEXTROSE DRIP 250 ML IV SCH (15:30)
--- NOTE | 2016-11-08 16:12 | HHI.PR ---
Subjective Subjective Notes DAILY PROGRESS NOTE FOR SURGICAL ATTENDING, DR. HUA GUTIERREZ [place] [facility] [place] pain has hacking cough Objective Vitals/I&O Vital Signs Date Time Temp Pulse Resp B/P Pulse Ox O2 Delivery O2 Flow Rate FiO2 11/08/16 11:54 82/50 11/08/16 11:40 97.5 80 16 96 11/08/16 10:50 Nasal Cannula 2.00 Labs Laboratory Tests Test 11/07/16 11/08/16 11/08/16 11/08/16 20:58 04:54 05:45 07:56 White Blood Count 15.1 13.9 Red Blood Count 2.41 2.17 Hemoglobin 7.8 7.1 Hematocrit 23.4 21.0 Mean Corpuscular Volume 96.8 96.7 Mean Corpuscular Hemoglobin 32.5 32.5 Mean Corpuscular Hemoglobin 33.6 33.6 Concent Red Cell Distribution Width 18.5 18.4 Platelet Count 137 111 Mean Platelet Volume 8.3 8.4 Neutrophils (%) (Auto) 86.1 Lymphocytes (%) (Auto) 8.2 Monocytes (%) (Auto) 4.2 Eosinophils (%) (Auto) 1.0 Basophils (%) (Auto) 0.5 Neutrophils # (Auto) 11.9 Lymphocytes # (Auto) 1.1 Monocytes # (Auto) 0.6 Eosinophils # (Auto) 0.1 Basophils # (Auto) 0.1 CBC Comment DIFF FINAL Differential Comment Sodium Level 143 Potassium Level 4.7 Chloride Level 116 Carbon Dioxide Level 13.6 Anion Gap 13 Blood Urea Nitrogen 28 Creatinine 1.77 Estimat Glomerular Filtration 30 Rate Random Glucose 67 Calcium Level 7.8 Total Bilirubin 3.5 Aspartate Amino Transf 27 (AST/SGOT) Alanine Aminotransferase 17 (ALT/SGPT) Alkaline Phosphatase 98 Total Protein 5.9 Albumin 2.3 Amylase Level 60 Lipase 180 Lactic Acid Level 3.4 4.6 B-Type Natriuretic Peptide 225 Test 11/08/16 11/08/16 11/08/16 11/08/16 11:00 12:57 13:00 14:28 Prothrombin Time 16.7 Prothromb Time International 1.5 Ratio Blood Gas Puncture Site RT RADIAL Blood Gas Patient Temperature 98.6 Blood Gas HCO3 13 Blood Gas Base Excess -12.5 Blood Gas Oxygen Saturation 90 Arterial Blood pH 7.24 Arterial Blood Partial 32 Pressure CO2 Arterial Blood Partial 75 Pressure O2 Arterial Blood Oxygen Content 8.5 Arterial Blood 3.0 Carboxyhemoglobin Arterial Blood Methemoglobin 2.1 Blood Gas Hemoglobin 6.6 Oxygen Delivery Device ROOM AIR Blood Gas Inspired Oxygen 21 Sodium Level 143 Potassium Level 4.5 Chloride Level 115 Carbon Dioxide Level 15.1 Anion Gap 13 Blood Urea Nitrogen 32 Creatinine 1.88 Estimat Glomerular Filtration 28 Rate Random Glucose 64 Lactic Acid Level 4.0 2.9 Calcium Level 7.7 B-Type Natriuretic Peptide 246 Blood Type B POSITIVE Antibody Screen NEGATIVE Crossmatch Leukocyte-Reduced Red Blood Cells Blood Bank Comment Urine Color DARK-YELLOW Urine Turbidity HAZY Urine pH 5.0 Urine Specific [place] 1.026 Urine Protein TRACE Urine Glucose (UA) NEG Urine Ketones NEG Urine Occult Blood NEG Urine Nitrite NEG Urine Bilirubin SMALL Urine Urobilinogen LESS THAN 2.0 Urine Leukocyte Esterase TRACE Urine RBC LESS THAN 1 Urine WBC 7 Urine Squamous Epithelial 1 Cells Urine Amorphous Sediment FEW Urine Bacteria RARE Urine Hyaline Casts 1 Microscopic Urinalysis Comment CULT NOT INDICATED Nasal Screen MRSA (PCR) NEGATIVE Date/Time Procedure Status Source Growth 11/08/16 10:20 Aerobic Blood Culture Received Blood Peripheral Pending 11/08/16 10:20 Anaerobic Blood Culture Received Blood Peripheral Pending Radiology Last Impressions Lower Extremity Ultrasound 11/08/16 0000 Signed Impressions: Service Date/Time: Tuesday, November 08, 2016 13:59 - CONCLUSION: Negative for deep venous thrombosis.. Ramos Lo MD FACR Chest X-Ray 11/08/16 0000 Signed Impressions: Service Date/Time: Tuesday, November 08, 2016 04:27 - CONCLUSION: 1. Subsegmental basal airspace disease, slightly increased on the left since November 07. Hua Pennington MD Gall Bladder Ultrasound 11/07/16 0000 Signed Impressions: Service Date/Time: Monday, November 07, 2016 09:48 - CONCLUSION: 1. Wall thickening and pericholecystic fluid of the gallbladder and differential includes secondary changes from chronic liver disease and acute cholecystitis. Equivocal sonographic Myles sign as the patient complains of pain during the entire scan. Sludge is in the gallbladder. 2. Ascites present and containing floating debris. The ascites is of heterogeneous attenuation on yesterday's CT suggesting there may be a recently hemorrhagic component. 3. 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 Chepe Hdez MD Abdomen/Pelvis CT 11/06/[id number] Signed Impressions: Service Date/Time: Sunday, November 06, 2016 20:50 - CONCLUSION: 1. Cirrhotic liver with moderate abdominal ascites. 2. Dilated gallbladder containing intraluminal density and gallstones. 3. Wall thickening within the sigmoid colon with diverticulosis. Ha Carey MD Cardiovascular: Regular Lungs: Upper airway course sound, Rhonchi, Other (decreased bs to the left) Abdomen: Other (berta every when examined but looks very comfortable when distracted) Extremities: Perfused A/P Problem List: (1) Varices, gastric (2) Ascites (3) Alcohol abuse (4) Gastritis (5) Portal hypertensive gastropathy (6) Hepatitis C (7) Anemia (8) Thrombocytopenia (9) Pancreatitis (10) Cirrhosis of liver (11) Abdominal pain (12) Elevated liver enzymes (13) Thrombosis, portal vein Assessment and Plan DAILY PROGRESS NOTE FOR SURGICAL ATTENDING, DR. HUA GUTIERREZ 56 yo female with generalized abd pain , pneumonia and Hep c, portal thrombosis , increase lactic acid unsure of her abd exam will repeat ct scan discussed with dr chepe Casarez Qualifiers (1) Hepatitis C: Qualified Code: B18.2 - Chronic hepatitis C without hepatic coma (2) Anemia: (3) Pancreatitis: Qualified Code: K85.00 - Idiopathic acute pancreatitis without infection or necrosis (4) Cirrhosis of liver: (5) Abdominal pain: Qualified Code: R10.84 - Generalized abdominal pain Hua Gutierrez MD Nov 08, 2016 16:12
[2016-11-08 16:58] LABS: BICARBONATE 16.3 MEQ/L (21.0-32.0); CALCIUM-PROTEIN CORRECTED 7.9 MG/DL (8.5-10.1); TOTAL BILIRUBIN ADULT 5.6 MG/DL (0.2-1.0)
[2016-11-08] MEDS ORDERED: IODIXANOL 320 MG/ML 50 ML VIAL (for Rad CT) IV ONE (18:41)
--- NOTE | 2016-11-08 19:01 | RADRPT ---
EXAM DATE/TIME: 11/08/2016 18:35 [facility] COMPARISON: CT ABDOMEN & PELVIS W CONTRAST, November 06, 2016, 20:50. INDICATIONS : Liver disease and distended abdomen. IV CONTRAST: 46 cc Visipaque (iodixanol) IV ORAL CONTRAST: Prescribed oral contrast ingested. RADIATION DOSE: 15.96 CTDIvol (mGy) MEDICAL HISTORY : Hepatitis C. Pancreatitis. SURGICAL HISTORY : None. ENCOUNTER: Subsequent ACUITY: 1 day PAIN SCALE: 7/10 LOCATION: Bilateral lower quadrant TECHNIQUE: Volumetric scanning of the abdomen and pelvis was performed. Using automated exposure control and ad justment of the mA and/or kV according to patient size, radiation dose was kept as low as reasonably achievable to obtain optimal diagnostic quality images. FINDINGS: Increasing ascites is identified. There is increasing fluid accumulation in a right inguinal hernia. Increasing soft tissue edema throughout the abdominal wall is also noted. Other previously described findings which includes cirrhotic liver disease, splenomegaly, large varic es and mild colonic wall thickening are again noted. There is no evidence of free air. There is less distention of the gallbladder. Subsegmental airspace disease remains evident in both lung bases. CONCLUSION: Increasing ascites and developing anasarca. No other significant change. Edis Plascencia MD on November 08, 2016 at 18:54 Board Certified Radiologist. This report was verified electronically.
[2016-11-08] MEDS: HYDROCORTISONE SOD SUCCINATE 100 MG VIAL IV PUSH SCH (22:24)
[2016-11-09] VITALS (14 sets, daily range): BP systolic 99–146; BP diastolic 60–76; PULSE 68–98; RESP 14–24; TEMP 96–98.7; O2SAT 94–97
[2016-11-09] MEDS: CHLORHEXIDINE GLUCONATE 2 % 1 PACK (2 CLOTHS)(taper/protocol) TOP SCH (04:00)
[2016-11-09] MEDS: PIPERACIL-TAZO 4.5 GM PREMIX 100 ML IV SCH ×3 (04:19→21:02)
[2016-11-09] MEDS: MORPHINE SULFATE 4 MG/ML INJ IV PRN ×5 (04:19→22:10)
[2016-11-09] MEDS: RESP: ALBUTEROL 2.5 MG/IPRATROPIUM 0.5 MG NEB (SCH) NEB ×4 (04:23→21:19)
[2016-11-09 06:13] LABS: AUTOMATED NEUTROPHIL # 7.6 TH/MM3 (1.8-7.7); BASOPHIL # 0.3 TH/MM3 (0-0.2); BASOPHIL % 3.6 % (0.0-2.0); EOSINOPHIL # 0.1 TH/MM3 (0-0.4); EOSINOPHIL % 0.9 % (0.0-4.0); HEMATOCRIT 25.9 % (35.0-46.0); LYMPHOCYTE # 0.5 TH/MM3 (1.0-4.8); MEAN CELL VOLUME 90.7 FL (80.0-100.0); MEAN CORPUSCULAR HEMOGLOBIN 31.2 PG (27.0-34.0); MEAN CORPUSCULAR HGB CONC 34.4 % (32.0-36.0); MONO % 6.2 % (0.0-8.0); NEUT % 83.3 % (16.0-70.0); PLATELET COUNT 64 TH/MM3 (150-450); RED BLOOD COUNT 2.85 MIL/MM3 (4.00-5.30); RED CELL DISTRIBUTION WIDTH 17.6 % (11.6-17.2); WHITE BLOOD COUNT 9.1 TH/MM3 (4.0-11.0)
[2016-11-09 06:33] LABS: HEMO FLAGS AUTO DIFF
[2016-11-09] MEDS: HYDROCORTISONE SOD SUCCINATE 100 MG VIAL IV PUSH SCH ×2 (06:36→16:53)
[2016-11-09 06:59] LABS: BICARBONATE 17.6 MEQ/L (21.0-32.0); CALCIUM-PROTEIN CORRECTED 8.2 MG/DL (8.5-10.1); POTASSIUM 3.8 MEQ/L (3.5-5.1); TOTAL BILIRUBIN ADULT 9.5 MG/DL (0.2-1.0)
[2016-11-09 08:22] LABS: BANDS 21 % (0-6); EOSINOPHILS 1 % (0-4); MYELOCYTES 2 % (0-0); NEUTROPHIL # MANUAL DIFF 8.6 TH/MM3 (1.8-7.7); POLYS (SEG NEUTROPHILS) 71 % (16-70); WBC DIFF SAMPLE 100
[2016-11-09 08:24] LABS: BURR CELLS 1+ (NORMAL); KERATOCYTES OCC (NORMAL); PLATELET ESTIMATE SMEAR LOW (NORMAL); PLATELET MORPHOLOGY NORMAL (NORMAL); SCAN/DIFF FINAL DIFF MANUAL
[2016-11-09] MEDS: PANTOPRAZOLE SODIUM 40 MG VIAL IV PUSH SCH ×2 (08:41→21:02)
[2016-11-09] MEDS ORDERED: THIAMINE INJ 100 MG in SODIUM CHLORIDE 0.9% INJ 100 ML IV SCH (09:00)
[2016-11-09] MEDS: SODIUM CHLORIDE 0.9% FLUSH 5 ML FLUSH FLUSH SCH (09:00)
[2016-11-09] MEDS ORDERED: VANCOMYCIN 1,000 MG/NS 250 ML IV SCH ×2 (11:00)
[2016-11-09 11:57] LABS: PERITONEAL WBC 24115 /MM3 (0-10)
[2016-11-09 12:00] LABS: PERITONEAL LYMPHS 2 %; PERITONEAL MONOS 1 %; PERITONEAL POLYS(SEGS) 97 %
[2016-11-09] MEDS: SODIUM CHLOR 0.9% 1000 ML INJ 1,000 ML IV SCH (12:10)
[2016-11-09] MEDS: INSULIN NovoLIN REGULAR SUPPLEMENTAL SCALE SQ SCH ×2 (12:30→18:30)
[2016-11-09] MEDS ORDERED: DEXTROSE 50% IN WATER 50 ML VIAL(D50) IV PUSH PRN (12:30)
[2016-11-09] MEDS ORDERED: GLUCAGON 1 MG/ML VIAL OTHER PRN (12:30)
[2016-11-09] MEDS: MULTIVITAMIN TAB PO SCH (12:30)
--- NOTE | 2016-11-09 12:39 | HHI.CCPN ---
Subjective Remarks/Hospital Course Patient is a 56-year-old female with past medical history significant for liver cirrhosis, hepatitis C, alcohol dependence, hypertension, history of GI bleed, tobacco abuse, anxiety and depression who was admitted to the hospitalist service on 11/06/16 with severe epigastric abdominal pain x 3 days duration, associated with nausea and vomiting. No diarrhea, no blood in stools. Abdominal/Pelvis CT showed Cirrhotic liver with moderate abdominal ascites, dilated gallbladder containing intraluminal density and gallstones, wall thickening within sigmoid colon with diverticulosis. Lipase initially 936 on admission, and had been gradually trending down. Ultrasound showed liver cirrhosis, chronic appearing portal vein thrombosis, gallbladder wall thickening and pericholecystic fluid with sludge. Clinical findings are concerning for acute cholecystitis. Gastroenterology and general surgery had been consulted. Patient had been receiving vancomycin and Zosyn. Today Halicat was called for hypotension, systolic blood pressures in the low 80s. Lactic acid was 4.6. Patient was started on IV fluid boluses a total of 3L and was moved emergently to the ICU. On my exam patient is lethargic remains borderline hypotensive and is receiving the third liter of IV fluid. Her ABG shows metabolic acidosis. 2 Amps of bicarbonate were given. Her clinical exam shows significant abdominal tenderness diffusely. Her presentation is concerning for mesenteric ischemia also. A stat CT abdomen pelvis with IV contrast and oral contrast had been ordered, D/W general surgery Dr. Gutierrez 11/09 Patient is awake and alert lying in bed in [facility]. s/p CT guided paracentesis today with removal 1L s/p transfusion 2u PRBC last night Hgb 8.9 this morning from 6.0 Objective Vital Signs Date Time Temp Pulse Resp B/P Pulse Ox O2 Delivery O2 Flow Rate FiO2 11/09/16 10:00 68 11/09/16 08:00 98.5 20 146/74 95 11/09/16 07:37 Nasal Cannula 3.00 Intake and Output 11/08/16 11/08/16 11/09/16 08:00 16:00 00:00 Intake Total 450 ml 2240 ml 1445 ml Output Total 450 ml 400 ml Balance 450 ml 1790 ml 1045 ml Result Diagram: 11/09/16 0455 11/09/16 0455 Other Results Laboratory Tests Test 11/08/16 11/08/16 11/08/16 11/08/16 12:57 13:00 14:28 16:00 Urine Color DARK-YELLOW Urine Turbidity HAZY Urine pH 5.0 Urine Specific [place] 1.026 Urine Protein TRACE mg/dL Urine Glucose (UA) NEG mg/dL Urine Ketones NEG mg/dL Urine Occult Blood NEG Urine Nitrite NEG Urine Bilirubin SMALL Urine Urobilinogen LESS THAN 2.0 MG/DL Urine Leukocyte Esterase TRACE Urine RBC LESS THAN 1 /hpf Urine WBC 7 /hpf Urine Squamous Epithelial 1 /hpf Cells Urine Amorphous Sediment FEW Urine Bacteria RARE /hpf Urine Hyaline Casts 1 /lpf Microscopic Urinalysis Comment CULT NOT INDICATED Nasal Screen MRSA (PCR) NEGATIVE Lactic Acid Level 2.9 mmol/L Hemoglobin 6.0 GM/DL Sodium Level 143 MEQ/L Potassium Level 4.0 MEQ/L Chloride Level 115 MEQ/L Carbon Dioxide Level 16.3 MEQ/L Anion Gap 12 MEQ/L Blood Urea Nitrogen 31 MG/DL Creatinine 1.78 MG/DL Estimat Glomerular Filtration 30 ML/MIN Rate Random Glucose 56 MG/DL Calcium Level 7.1 MG/DL Protein Corrected Calcium 7.9 MG/DL Total Bilirubin 5.6 MG/DL Aspartate Amino Transf 31 U/L (AST/SGOT) Alanine Aminotransferase 16 U/L (ALT/SGPT) Alkaline Phosphatase 77 U/L Total Protein 5.5 GM/DL Albumin 2.2 GM/DL Test 11/09/16 11/09/16 04:55 10:30 White Blood Count 9.1 TH/MM3 Red Blood Count 2.85 MIL/MM3 Hemoglobin 8.9 GM/DL Hematocrit 25.9 % Mean Corpuscular Volume 90.7 FL Mean Corpuscular Hemoglobin 31.2 PG Mean Corpuscular Hemoglobin 34.4 % Concent Red Cell Distribution Width 17.6 % Platelet Count 64 TH/MM3 Mean Platelet Volume 8.1 FL Neutrophils (%) (Auto) 83.3 % Lymphocytes (%) (Auto) 6.0 % Monocytes (%) (Auto) 6.2 % Eosinophils (%) (Auto) 0.9 % Basophils (%) (Auto) 3.6 % Neutrophils # (Auto) 7.6 TH/MM3 Lymphocytes # (Auto) 0.5 TH/MM3 Monocytes # (Auto) 0.6 TH/MM3 Eosinophils # (Auto) 0.1 TH/MM3 Basophils # (Auto) 0.3 TH/MM3 CBC Comment AUTO DIFF Differential Total Cells 100 Counted Neutrophils % (Manual) 71 % Band Neutrophils % 21 % Lymphocytes % 2 % Monocytes % 3 % Eosinophils % 1 % Neutrophils # (Manual) 8.6 TH/MM3 Myelocytes 2 % Differential Comment FINAL DIFF MANUAL Platelet Estimate LOW Platelet Morphology Comment NORMAL [place] Cells 1+ Keratocytes OCC Sodium Level 141 MEQ/L Potassium Level 3.8 MEQ/L Chloride Level 112 MEQ/L Carbon Dioxide Level 17.6 MEQ/L Anion Gap 11 MEQ/L Blood Urea Nitrogen 35 MG/DL Creatinine 1.62 MG/DL Estimat Glomerular Filtration 33 ML/MIN Rate Random Glucose 71 MG/DL Calcium Level 7.2 MG/DL Protein Corrected Calcium 8.2 MG/DL Total Bilirubin 9.5 MG/DL Aspartate Amino Transf 34 U/L (AST/SGOT) Alanine Aminotransferase 14 U/L (ALT/SGPT) Alkaline Phosphatase 64 U/L Total Protein 5.3 GM/DL Albumin 2.2 GM/DL Lipase 117 U/L Random Vancomycin Level 10.4 COMMENT Peritoneal Fluid WBC 40207 /MM3 Peritoneal Fluid RBC 694649 /MM3 Peritoneal Fluid Neutrophils 97 % Peritoneal Fluid Lymphocytes 2 % Peritoneal Fluid Monocytes 1 % Peritoneal Fluid Albumin 0.8 G/DL Imaging Last Impressions Lower Extremity Ultrasound 11/08/16 Signed Impressions: Service Date/Time: Tuesday, November 08, 2016 13:59 - CONCLUSION: Negative for deep venous thrombosis.. Ramos Lo MD FACR Chest X-Ray 11/08/16 0000 Signed Impressions: Service Date/Time: Tuesday, November 08, 2016 04:27 - CONCLUSION: 1. Subsegmental basal airspace disease, slightly increased on the left since November 07. Hua Pennington MD Abdomen/Pelvis CT 11/08/16 0000 Signed Impressions: Service Date/Time: Tuesday, November 08, 2016 18:35 - CONCLUSION: Increasing ascites and developing anasarca. No other significant change. Edis Plascencia MD Gall Bladder Ultrasound 11/07/16 0000 Signed Impressions: Service Date/Time: Monday, November 07, 2016 09:48 - CONCLUSION: 1. Wall thickening and pericholecystic fluid of the gallbladder and differential includes secondary changes from chronic liver disease and acute cholecystitis. Equivocal sonographic Myles sign as the patient complains of pain during the entire scan. Sludge is in the gallbladder. 2. Ascites present and containing floating debris. The ascites is of heterogeneous attenuation on yesterday's CT suggesting there may be a recently hemorrhagic component. 3. 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 Tony Hdez MD Objective Remarks GENERAL: Patient is lying in bed in NAD SKIN: Warm and dry. HEAD: Atraumatic. Normocephalic. EYES: Pupils equal and round. No scleral icterus. ENT: Mucous membranes pink and moist. NECK: Trachea midline. No JVD. CARDIOVASCULAR: Regular rate and rhythm. No murmur appreciated. RESPIRATORY: Breath sounds equal bilaterally GASTROINTESTINAL: Soft, mildly diffusely tender, predominantly RUQ and epigastrium. No rebound or guarding MUSCULOSKELETAL: Well-healing right ankle surgical scar NEUROLOGICAL: Awake and alert. No focal deficits A/P Assessment and Plan NEURO: Alcohol dependence -Watch for alcohol, supplement Thiamine, MVI -As needed morphine for pain RESP: Respiratory insufficiency Left lower lobe pneumonia COPD -Continue with oxygen keep sat >92% - DuoNeb every 6 hours and when necessary -Decrease hydrocortisone 50 mg IV every 6 hours CV: s/p Septic shock Lactic acidosis...trending down -Monitor HR and BP keep MAP>65mmHg -Continue stress dose steroids GI: Abdominal pain rule out mesenteric ischemia Probable acute cholecystitis Acute pancreatitis Liver cirrhosis Ascites, with possible hemorrhagic component -Gen. surgery Dr. Gutierrez and GI Dr. Tracey following -IV Protonix 40 twice a day -Broad-spectrum antibiotics : Acute kidney failure -Monitor renal function, I/O's, electrolytes replacement per protocol. -Renal function improving with Cr: 1.62 from 1.78, UO: 1250ml in 24hrs Change IVF D5NS@75ml/hr, place on Albumin 12.5gms Q12 Diurese with Bumex 1mg x1 ID: Septic shock Acute cholecystitis Left lower lobe pneumonia -Continue with abx( vancomycin, Zosyn and Levaquin)monitor for signs of infections ( Fever, WBC) -Follow up on BC from 11/08: NGTD, follow up on fluid cx HEME: Anemia requiring transfusion Thrombocytopenia Coagulopathy -s/p transfusion 2u PRBC 11/08 -Monitor CBC, CMP, Coags ENDO: -Electrolytes replacement as needed PROPH: -Bilateral lower extremity SCDs. Avoid chemical prophylaxis due to anemia, coagulopathy and thrombocytopenia LINES: -Utilize peripheral IVs, Will sign off and transfer care to [facility] Level 3 Katie Wallace MD Nov 09, 2016 12:39
[2016-11-09] MEDS ORDERED: BUMETANIDE INJ 1 MG/4 ML VIAL IV PUSH ONE (12:45)
[2016-11-09] MEDS ORDERED: CALCIUM GLUCONATE INJ 1 GM in SODIUM CHLORIDE 0.9% INJ 100 ML IV ONE (14:00)
[2016-11-09] MEDS: ALBUMIN HUMAN 5% 12.5 GM/250 ML BOTTLE IV SCH (14:11)
[2016-11-09] MEDS: DEXT 5%-NACL 0.9% 1000 ML INJ 1,000 ML IV SCH (14:13)
--- NOTE | 2016-11-09 14:59 | RADRPT ---
EXAM DATE/TIME: 11/09/2016 09:26 [facility] COMPARISON: No previous studies available for comparison. EXTERNAL COMPARISON: [facility], US LIVER, Jul 15 2016. INDICATIONS : Ascites. MEDICAL HISTORY : Hypertension. Osteoarthritis. Cirrhosis. Hepatitis C. Abdominal pain. Right inguinal hernia. GI bleed . Clostrium difficile. SURGICAL HISTORY : section. Paracentesis. ORIF right leg. Blood transfusions. ENCOUNTER: Initial ACUITY: 1 day PAIN SCORE: 0/10 LOCATION: Right lower quadrant FLUID: Total volume of 1,000 cc of serosanguineous fluid was removed. Fluid was sent to lab for ordered studies. Post procedure scanning reveals no hematoma or other complication. TECHNIQUE: 1. Ultrasound guidance for abdominal paracentesis. 2. Paracentesis. The risks, benefits, and alternatives to ultrasound guided paracentesis were explained to the patient in detail including the risk of bleeding and infection. Written and verbal informed consent was obt ained. With the patient on the ultrasound table, ultrasound imaging was used to select the most appropriate approach for paracentesis. Overlying skin was prepped and draped in the usual sterile fashion and wi th a local anesthetic, a dermatotomy was made with an 11 blade scalpel. A 6 [place] [id number] ca theter was introduced into the peritoneal cavity and fluid was collected. The patient tolerated the procedure well and left the ultrasound suite in stable condition. CONCLUSION: Uncomplicated ultrasound guided paracentesis. Ha Carey MD on November 09, 2016 at 14:57 Board Certified Radiologist. This report was verified electronically.
[2016-11-09] MEDS ORDERED: LIDOCAINE HCL 1% PF 30 ML VIAL ONE (15:11)
--- NOTE | 2016-11-09 16:00 | HHI.GIFU ---
Subjective Remarks Patient resting in bed, seems to be lethargic according to nurse much better than yesterday, blood pressure stable, no signs of bleeding, received 2 units of blood over night, had paracentesis today and 1 L removed. She reports diffused abdomen pain. (ThaiJyoti) Objective Vitals I&O Vital Signs Date Time Temp Pulse Resp B/P Pulse Ox O2 Delivery O2 Flow Rate FiO2 11/09/16 14:00 68 11/09/16 12:00 68 11/09/16 12:00 98.2 75 22 124/60 97 11/09/16 10:00 68 11/09/16 08:00 68 11/09/16 08:00 98.5 96 20 146/74 95 11/09/16 07:37 96 Nasal Cannula 3.00 11/09/16 07:32 16 11/09/16 06:00 92 11/09/16 04:00 89 11/09/16 04:00 98.4 79 22 99/65 97 11/09/16 02:00 92 11/09/16 00:00 96.0 98 24 102/65 96 11/09/16 00:00 98 11/08/16 23:20 20 11/08/16 22:00 98 11/08/16 21:01 97 Nasal Cannula 3.00 11/08/16 21:00 98.2 91 24 125/70 98 11/08/16 20:00 91 11/08/16 20:00 98.2 91 24 125/70 96 11/08/16 18:00 94 11/08/16 16:00 98.4 84 22 121/67 93 11/08/16 16:00 94 I/O 11/08/16 11/08/16 11/08/16 11/09/16 11/09/16 11/09/16 07:00 15:00 23:00 07:00 15:00 23:00 Intake Total 450 ml 2240 ml 1445 ml 917 ml 1043 ml Output Total 450 ml 400 ml 400 ml 500 ml Balance 450 ml 1790 ml 1045 ml 517 ml 543 ml Intake Oral 240 ml 200 ml 150 ml 240 ml IV Total 450 ml 2000 ml 1245 ml 767 ml 803 ml Output Urine Total 450 ml 400 ml 400 ml 500 ml # Voids 4 Laboratory Laboratory Tests Test 11/08/16 11/09/16 11/09/16 11/09/16 16:00 04:55 10:30 13:26 Hemoglobin 6.0 8.9 Sodium Level 143 141 Potassium Level 4.0 3.8 Chloride Level 115 112 Carbon Dioxide Level 16.3 17.6 Anion Gap 12 11 Blood Urea Nitrogen 31 35 Creatinine 1.78 1.62 Estimat Glomerular Filtration 30 33 Rate Random Glucose 56 71 Calcium Level 7.1 7.2 Protein Corrected Calcium 7.9 8.2 Total Bilirubin 5.6 9.5 Aspartate Amino Transf 31 34 (AST/SGOT) Alanine Aminotransferase 16 14 (ALT/SGPT) Alkaline Phosphatase 77 64 Total Protein 5.5 5.3 Albumin 2.2 2.2 White Blood Count 9.1 Red Blood Count 2.85 Hematocrit 25.9 Mean Corpuscular Volume 90.7 Mean Corpuscular Hemoglobin 31.2 Mean Corpuscular Hemoglobin 34.4 Concent Red Cell Distribution Width 17.6 Platelet Count 64 Mean Platelet Volume 8.1 Neutrophils (%) (Auto) 83.3 Lymphocytes (%) (Auto) 6.0 Monocytes (%) (Auto) 6.2 Eosinophils (%) (Auto) 0.9 Basophils (%) (Auto) 3.6 Neutrophils # (Auto) 7.6 Lymphocytes # (Auto) 0.5 Monocytes # (Auto) 0.6 Eosinophils # (Auto) 0.1 Basophils # (Auto) 0.3 CBC Comment AUTO DIFF Differential Total Cells 100 Counted Neutrophils % (Manual) 71 Band Neutrophils % 21 Lymphocytes % 2 Monocytes % 3 Eosinophils % 1 Neutrophils # (Manual) 8.6 Myelocytes 2 Differential Comment FINAL DIFF MANUAL Platelet Estimate LOW Platelet Morphology Comment NORMAL Sharon Cells 1+ Keratocytes OCC Lipase 117 Random Vancomycin Level 10.4 Peritoneal Fluid WBC 82318 Peritoneal Fluid RBC 474865 Peritoneal Fluid Neutrophils 97 Peritoneal Fluid Lymphocytes 2 Peritoneal Fluid Monocytes 1 Peritoneal Fluid Albumin 0.8 Lactic Acid Level 1.8 Date/Time Procedure Status Source Growth 11/09/16 10:30 Gram Stain Received Fluid Peritoneal Fluid Pending 11/09/16 10:30 Body Fluid Culture Received Fluid Peritoneal Fluid Pending 11/08/16 10:20 Aerobic Blood Culture - Preliminary Resulted Blood Peripheral NO GROWTH IN 1 DAY 11/08/16 10:20 Anaerobic Blood Culture - Preliminary Resulted Blood Peripheral NO GROWTH IN 1 DAY Imaging Last Impressions Cyst Biopsy Asp-Paracentesis US 11/09/16 0000 Signed Impressions: Service Date/Time: Wednesday, November 09, 2016 09:26 - CONCLUSION: Uncomplicated ultrasound guided paracentesis. Ha Carey MD Lower Extremity Ultrasound 11/08/16 0000 Signed Impressions: Service Date/Time: Tuesday, November 08, 2016 13:59 - CONCLUSION: Negative for deep venous thrombosis.. Ramos Lo MD FACR Chest X-Ray 11/08/16 0000 Signed Impressions: Service Date/Time: Tuesday, November 08, 2016 04:27 - CONCLUSION: 1. Subsegmental basal airspace disease, slightly increased on the left since November 07. Hua Pennington MD Abdomen/Pelvis CT 11/08/16 0000 Signed Impressions: Service Date/Time: Tuesday, November 08, 2016 18:35 - CONCLUSION: Increasing ascites and developing anasarca. No other significant change. Edis Plascencia MD Gall Bladder Ultrasound 11/07/16 0000 Signed Impressions: Service Date/Time: Monday, November 07, 2016 09:48 - CONCLUSION: 1. Wall thickening and pericholecystic fluid of the gallbladder and differential includes secondary changes from chronic liver disease and acute cholecystitis. Equivocal sonographic Myles sign as the patient complains of pain during the entire scan. Sludge is in the gallbladder. 2. Ascites present and containing floating debris. The ascites is of heterogeneous attenuation on yesterday's CT suggesting there may be a recently hemorrhagic component. 3. 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 Tony Hdez MD Physical Exam HEENT: Normocephalic; atraumatic; no jaundice. CHEST: CTA CARDIAC: RRR, hypotensive ABDOMEN: Soft, moderate diffuse tenderness, hepatosplenomegaly; bowel sounds are present in all four quadrants. EXTREMITIES: No clubbing, cyanosis, or edema. SKIN: Normal; no rash; no jaundice. 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 (Jyoti Andre) Assessment and Plan Plan ASSESSMENT: - Acute Pancreatitis. Lipase normal. Abdomen/Pelvis CT (11/06/16)----> 1. Cirrhotic liver with moderate abdominal ascites. 2. Dilated gallbladder containing intraluminal density and gallstones. 3. Wall thickening within the sigmoid colon with diverticulosis. Gall Bladder Ultrasound (11/07/16)------> 1. Wall thickening and pericholecystic fluid of the gallbladder and differential includes secondary changes from chronic liver disease and acute cholecystitis. Equivocal sonographic Myles sign as the patient complains of pain during the entire scan. Sludge is in the gallbladder. 2. Ascites present and containing floating debris. The ascites is of heterogeneous attenuation on yesterday's CT suggesting there may be a recently hemorrhagic component. 3. 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 Lipase improving. Lipase improving 13.9. NPO. IVF. - Cholecystitis. GS following, high risk for surgery, recommends treating with abx. Lactic acid improving WBC improving. Hypotensive. - Anemia. HH 7.1/21.0. EGD (07/28/16)---> single non bleeding ulcer 3-7 mm in size gastric antrum. Pathology with reactive/chemical gastropathy in a background of mild chronic gastritis with intestinal metaplasia and associated granulation tissue, suggestive of ulcer base. Negative for H. Pylori. Colonoscopy (10/10/15)----> Suboptimal preparation of the colon but no gross lesion was noted in the colon. - Ascites- S/P paracentesis, 1 L removed, cx pending, labs on indication of infection - Thrombocytopenia, Chronic. - Cirrhosis, History of alcohol abuse, Hep C, Chronic portal vein thrombosis. She tells me started tx for hep-c but has been on hold for 2 weeks due to hospitalization - Sepsis, Lactic acidosis.Improving Zosyn, Vancomycin. PLAN: - full liquids - ammonia - Cont. PPI - Cont. aggressive IVF - Cont. Abx - Monitor HH - Transfuse as necessary - CBC in am - GS following - Consider EGD +/- Colonoscopy once stable, no obvious active bleeding. - Further recommendations to follow based on results of above - Patient seen and examined by Dr. Tracey and myself and this note is written on his behalf. (Jyoti Andre) Physician Comments Patient seen and examined Agree with above Continue with current supportive care Monitor labs (Choco Tracey MD) Jyoti Andre Nov 09, 2016 16:00 Choco Tracey MD Nov 09, 2016 20:30
--- NOTE | 2016-11-09 16:16 | HHI.PR ---
Subjective Subjective Notes DAILY PROGRESS NOTE FOR SURGICAL ATTENDING, DR. HUA GUTIERREZ i feel much better after fluid was removed Objective Vitals/I&O Vital Signs Date Time Temp Pulse Resp B/P Pulse Ox O2 Delivery O2 Flow Rate FiO2 11/09/16 14:00 68 11/09/16 12:00 98.2 22 124/60 97 11/09/16 07:37 Nasal Cannula 3.00 Labs Laboratory Tests Test 11/09/16 11/09/16 11/09/16 04:55 10:30 13:26 White Blood Count 9.1 Red Blood Count 2.85 Hemoglobin 8.9 Hematocrit 25.9 Mean Corpuscular Volume 90.7 Mean Corpuscular Hemoglobin 31.2 Mean Corpuscular Hemoglobin 34.4 Concent Red Cell Distribution Width 17.6 Platelet Count 64 Mean Platelet Volume 8.1 Neutrophils (%) (Auto) 83.3 Lymphocytes (%) (Auto) 6.0 Monocytes (%) (Auto) 6.2 Eosinophils (%) (Auto) 0.9 Basophils (%) (Auto) 3.6 Neutrophils # (Auto) 7.6 Lymphocytes # (Auto) 0.5 Monocytes # (Auto) 0.6 Eosinophils # (Auto) 0.1 Basophils # (Auto) 0.3 CBC Comment AUTO DIFF Differential Total Cells 100 Counted Neutrophils % (Manual) 71 Band Neutrophils % 21 Lymphocytes % 2 Monocytes % 3 Eosinophils % 1 Neutrophils # (Manual) 8.6 Myelocytes 2 Differential Comment FINAL DIFF MANUAL Platelet Estimate LOW Platelet Morphology Comment NORMAL Zach Cells 1+ Keratocytes OCC Sodium Level 141 Potassium Level 3.8 Chloride Level 112 Carbon Dioxide Level 17.6 Anion Gap 11 Blood Urea Nitrogen 35 Creatinine 1.62 Estimat Glomerular Filtration 33 Rate Random Glucose 71 Calcium Level 7.2 Protein Corrected Calcium 8.2 Total Bilirubin 9.5 Aspartate Amino Transf 34 (AST/SGOT) Alanine Aminotransferase 14 (ALT/SGPT) Alkaline Phosphatase 64 Total Protein 5.3 Albumin 2.2 Lipase 117 Random Vancomycin Level 10.4 Peritoneal Fluid WBC 66379 Peritoneal Fluid RBC 597357 Peritoneal Fluid Neutrophils 97 Peritoneal Fluid Lymphocytes 2 Peritoneal Fluid Monocytes 1 Peritoneal Fluid Albumin 0.8 Lactic Acid Level 1.8 Date/Time Procedure Status Source Growth 11/09/16 10:30 Gram Stain Received Fluid Peritoneal Fluid Pending 11/09/16 10:30 Body Fluid Culture Received Fluid Peritoneal Fluid Pending 11/08/16 10:20 Aerobic Blood Culture - Preliminary Resulted Blood Peripheral NO GROWTH IN 1 DAY 11/08/16 10:20 Anaerobic Blood Culture - Preliminary Resulted Blood Peripheral NO GROWTH IN 1 DAY Radiology Last Impressions Lower Extremity Ultrasound 11/08/16 0000 Signed Impressions: Service Date/Time: Tuesday, November 08, 2016 13:59 - CONCLUSION: Negative for deep venous thrombosis.. Ramos Lo MD FACR Chest X-Ray 11/08/16 0000 Signed Impressions: Service Date/Time: Tuesday, November 08, 2016 04:27 - CONCLUSION: 1. Subsegmental basal airspace disease, slightly increased on the left since November 07. Hua Pennington MD Gall Bladder Ultrasound 11/07/16 0000 Signed Impressions: Service Date/Time: Monday, November 07, 2016 09:48 - CONCLUSION: 1. Wall thickening and pericholecystic fluid of the gallbladder and differential includes secondary changes from chronic liver disease and acute cholecystitis. Equivocal sonographic Myles sign as the patient complains of pain during the entire scan. Sludge is in the gallbladder. 2. Ascites present and containing floating debris. The ascites is of heterogeneous attenuation on yesterday's CT suggesting there may be a recently hemorrhagic component. 3. 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 Tony Hdez MD Abdomen/Pelvis CT 11/06/161927 Signed Impressions: Service Date/Time: Tuesday, November 06, 2016 20:50 - CONCLUSION: 1. Cirrhotic liver with moderate abdominal ascites. 2. Dilated gallbladder containing intraluminal density and gallstones. 3. Wall thickening within the sigmoid colon with diverticulosis. Ha Carey MD Cardiovascular: Regular Lungs: Upper airway course sound, Rhonchi Abdomen: Other (post paracentesis with much less tenderness) Narrative Exam pt apears jaundice much more comfortable A/P Problem List: (1) Varices, gastric (2) Ascites (3) Alcohol abuse (4) Gastritis (5) Portal hypertensive gastropathy (6) Hepatitis C (7) Anemia (8) Thrombocytopenia (9) Pancreatitis (10) Cirrhosis of liver (11) Abdominal pain (12) Elevated liver enzymes (13) Thrombosis, portal vein (14) Jaundice Assessment and Plan DAILY PROGRESS NOTE FOR SURGICAL ATTENDING, DR. HUA GUTIERREZ 56 yo female with generalized abd pain , pneumonia and Hep c, portal thrombosis , increase lactic acid abd exam much improved after paracentesis no surgery appears to be in liver failure Problem Qualifiers (1) Hepatitis C: Qualified Code: B18.2 - Chronic hepatitis C without hepatic coma (2) Anemia: (3) Pancreatitis: Qualified Code: K85.00 - Idiopathic acute pancreatitis without infection or necrosis (4) Cirrhosis of liver: (5) Abdominal pain: Qualified Code: R10.84 - Generalized abdominal pain Hua Gutierrez MD Nov 09, 2016 16:16
[2016-11-10] VITALS (15 sets, daily range): BP systolic 114–171; BP diastolic 58–92; PULSE 68–98; RESP 16–20; TEMP 97.6–100.1; O2SAT 95–100
[2016-11-10] MEDS: INSULIN NovoLIN REGULAR SUPPLEMENTAL SCALE SQ SCH ×3 (00:30→18:30)
[2016-11-10] MEDS: MORPHINE SULFATE 4 MG/ML INJ IV PRN ×4 (02:35→19:47)
[2016-11-10] MEDS: CHLORHEXIDINE GLUCONATE 2 % 1 PACK (2 CLOTHS)(taper/protocol) TOP SCH (04:00)
[2016-11-10] MEDS: RESP: ALBUTEROL 2.5 MG/IPRATROPIUM 0.5 MG NEB (SCH) NEB ×4 (04:03→20:39)
[2016-11-10 04:59] LABS: HEMATOCRIT 25.5 % (35.0-46.0); MEAN CELL VOLUME 89.5 FL (80.0-100.0); MEAN CORPUSCULAR HEMOGLOBIN 31.1 PG (27.0-34.0); MEAN CORPUSCULAR HGB CONC 34.7 % (32.0-36.0); PLATELET COUNT 65 TH/MM3 (150-450); RED BLOOD COUNT 2.85 MIL/MM3 (4.00-5.30); RED CELL DISTRIBUTION WIDTH 18.2 % (11.6-17.2); WHITE BLOOD COUNT 9.5 TH/MM3 (4.0-11.0)
[2016-11-10 05:07] LABS: HEMO FLAGS AUTO DIFF
[2016-11-10 05:08] LABS: INTERNATIONAL NORMALIZED RATIO 1.3 RATIO; PROTHROMBIN TIME - PATIENT 14.8 SEC (9.8-11.6)
[2016-11-10 05:31] LABS: ALKALINE PHOSPHATASE 49 U/L (45-117); ALT (GPT) 12 U/L (10-53); ANION GAP 13 MEQ/L (5-15); AST (GOT) 25 U/L (15-37); BICARBONATE 20.3 MEQ/L (21.0-32.0); BLOOD UREA NITROGEN 32 MG/DL (7-18); CHLORIDE 112 MEQ/L (98-107); GLOMERULAR FILTRATION RATE 41 ML/MIN (>89); MAGNESIUM 1.5 MG/DL (1.5-2.5); SODIUM (NA) 145 MEQ/L (136-145); TOTAL BILIRUBIN ADULT 8.5 MG/DL (0.2-1.0)
[2016-11-10] MEDS: HYDROCORTISONE SOD SUCCINATE 100 MG VIAL IV PUSH SCH ×4 (05:54→22:27)
[2016-11-10] MEDS: PIPERACIL-TAZO 4.5 GM PREMIX 100 ML IV SCH ×3 (05:55→19:47)
[2016-11-10 06:58] LABS: BANDS 8 % (0-6); METAMYELOCYTES 1 % (0-1); NEUTROPHIL # MANUAL DIFF 8.7 TH/MM3 (1.8-7.7); POLYS (SEG NEUTROPHILS) 83 % (16-70); WBC DIFF SAMPLE 100
[2016-11-10 07:01] LABS: BURR CELLS 1+ (NORMAL)
[2016-11-10 07:02] LABS: KERATOCYTES OCC (NORMAL); PLATELET ESTIMATE SMEAR LOW (NORMAL); PLATELET MORPHOLOGY NORMAL (NORMAL); SCAN/DIFF FINAL DIFF MANUAL
--- NOTE | 2016-11-10 08:25 | HHI.PR ---
Subjective Remarks in no acute distress. abdominal pain has improved. no nausea or vomiting. afebrile. d/w the RN and no acute issues over night. Objective Vitals Vital Signs Date Time Temp Pulse Resp B/P Pulse Ox O2 Delivery O2 Flow Rate FiO2 11/10/16 06:00 68 11/10/16 04:00 98.3 68 18 147/71 95 11/10/16 04:00 68 11/10/16 02:00 84 11/10/16 00:00 98.2 73 18 114/63 96 11/10/16 00:00 84 11/09/16 23:01 18 11/09/16 22:08 14 11/09/16 22:00 84 11/09/16 21:19 95 Nasal Cannula 2.00 11/09/16 20:00 98.7 79 14 122/67 94 11/09/16 20:00 79 11/09/16 18:00 68 11/09/16 16:00 68 11/09/16 16:00 98.5 84 20 146/76 96 11/09/16 14:00 68 11/09/16 12:00 68 11/09/16 12:00 98.2 75 22 124/60 97 11/09/16 10:00 68 I/O 11/09/16 11/09/16 11/09/16 11/10/16 11/10/16 11/10/16 07:00 15:00 23:00 07:00 15:00 23:00 Intake Total 917 ml 1043 ml 900 ml 1380 ml Output Total 400 ml 500 ml 800 ml 800 ml Balance 517 ml 543 ml 100 ml 580 ml Intake Oral 150 ml 240 ml 250 ml 100 ml IV Total 767 ml 803 ml 650 ml 1280 ml Output Urine Total 400 ml 500 ml 800 ml 800 ml Result Diagram: 11/10/16 0437 11/10/16 0437 Imaging Last Impressions Cyst Biopsy Asp-Paracentesis US 11/09/16 0000 Signed Impressions: Service Date/Time: Wednesday, November 09, 2016 09:26 - CONCLUSION: Uncomplicated ultrasound guided paracentesis. Ha Carey MD Lower Extremity Ultrasound 11/08/16 0000 Signed Impressions: Service Date/Time: Tuesday, November 08, 2016 13:59 - CONCLUSION: Negative for deep venous thrombosis.. Ramos Lo MD FACR Chest X-Ray 11/08/16 0000 Signed Impressions: Service Date/Time: Tuesday, November 08, 2016 04:27 - CONCLUSION: 1. Subsegmental basal airspace disease, slightly increased on the left since November 07. Hua Pennington MD Abdomen/Pelvis CT 11/08/16 0000 Signed Impressions: Service Date/Time: Tuesday, November 08, 2016 18:35 - CONCLUSION: Increasing ascites and developing anasarca. No other significant change. Edis Plascencia MD Gall Bladder Ultrasound 11/07/16 0000 Signed Impressions: Service Date/Time: Monday, November 07, 2016 09:48 - CONCLUSION: 1. Wall thickening and pericholecystic fluid of the gallbladder and differential includes secondary changes from chronic liver disease and acute cholecystitis. Equivocal sonographic Myles sign as the patient complains of pain during the entire scan. Sludge is in the gallbladder. 2. Ascites present and containing floating debris. The ascites is of heterogeneous attenuation on yesterday's CT suggesting there may be a recently hemorrhagic component. 3. 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 Tony Hdez MD Objective Remarks GENERAL: in no apparent distress. CARDIOVASCULAR: Regular rate and irregular rhythm without murmurs, gallops, or rubs. RESPIRATORY: Clear to auscultation. Breath sounds equal bilaterally. No wheezes , rales, or rhonchi. GASTROINTESTINAL: Abdomen soft, non-tender, nondistended. Normal, active bowel sounds MUSCULOSKELETAL: Extremities without clubbing, cyanosis, or edema. NEURO: Alert & Oriented x4 to person, place, time, situation. Moves all ext x4 Procedures paracentesis Medications and IVs Current Medications Morphine Sulfate (Morphine Inj) 4 mg ONCE ONCE IV PUSH Last administered on 19:47; Start 11/06/16 at 19:30; Stop 11/06/16 at 19:31; Status DC Ondansetron HCl 4 mg 4 mg ONCE ONCE IVP Last administered on 11/06/16 19:47; Start 11/06/16 at 19:30; Stop 11/06/16 at 19:31; Status DC Sodium Chloride (NS 1000 ml Inj) 1,000 ml @ 1,000 mls/hr Q1H IV Last administered on 11/06/16 19:47; Start 11/06/16 at 19:28; Stop 11/06/16 at 20:27 ; Status DC IV Flush (NS Flush) 2 ml UNSCH PRN IVF FLUSH AFTER USING IV ACCESS; Start 11/06 at 19:30; Stop 11/06/16 at 21:17; Status DC Famotidine (Pepcid Inj) 20 mg ONCE ONCE IV PUSH Last administered on 19:47; Start 11/06/16 at 19:30; Stop 11/06/16 at 19:31; Status DC Iohexol (Omnipaque 350 Inj) 88 ml STK-MED ONCE IV Last administered on 20:54; Start 11/06/16 at 20:54; Stop 11/06/16 at 20:55; Status DC Morphine Sulfate (Morphine Inj) 4 mg ONCE ONCE IV PUSH Last administered on 22:48; Start 11/06/16 at 21:15; Stop 11/06/16 at 21:16; Status DC Pantoprazole Sodium 40 mg 40 mg Q12H IV PUSH Last administered on 11/09/16 21: 02; Start 11/07/16 at 09:00 Sodium Chloride (NS 1000 ml Inj) 1,000 ml @ 125 mls/hr Q8H IV Last administered on 11/08/16 08:49; Start 11/06/16 at 22:00; Stop 11/08/16 at 10:55 ; Status DC IV Flush (NS Flush) 2 ml UNSCH PRN FLUSH FLUSH AFTER USING IV ACCESS Last administered on 11/07/16 09:55; Start 11/06/16 at 21:15 IV Flush (NS Flush) 2 ml BID FLUSH Last administered on 11/08/16 22:25; Start 11/07/16 at 09:00 Ondansetron HCl (Zofran Inj) 4 mg Q6H PRN IVP NAUSEA OR VOMITING; Start at 21:15 Bisacodyl (Dulcolax Supp) 10 mg DAILY PRN [place] CONSTIPATION; Start 11/06/16 at 21 :15 Acetaminophen (Tylenol) 650 mg Q6H PRN PO FEVER; Start 11/06/16 at 21:15 Morphine Sulfate (Morphine Inj) 2 mg Q3H PRN IV Pain 6-10 Last administered on 11/10/16 05:55; Start 11/06/16 at 21:15 Oxycodone HCl (Roxicodone) 5 mg Q4H PRN PO PAIN SCALE 3 TO 5 Last administered on 11/09/16 21:03; Start 11/06/16 at 21:15 Gabapentin (Neurontin) 300 mg TID PO Last administered on 11/08/16 12:01; Start 11/07/16 at 09:00; Status Hold Propranolol HCl (Inderal) 20 mg BID PO Last administered on 11/08/16 08:46; Start 11/07/16 at 09:00; Status Hold Spironolactone (Aldactone) 25 mg DAILY PO Last administered on 11/07/16 07:45 ; Start 11/07/16 at 09:00; Status Hold Trazodone HCl (Desyrel) 50 mg HS PO Last administered on 11/07/16 22:16; Start 11/07/16 at 21:00; Status Hold Morphine Sulfate 4 mg 4 mg ONCE ONCE IV PUSH Last administered on 11/07/16 09 :55; Start 11/07/16 at 09:30; Stop 11/07/16 at 09:31; Status DC Piperacillin Sod/ Tazobactam Sod (Zosyn 4.5 Gm Premix) 100 ml @ 200 mls/hr Q8H IV Last administered on 11/10/16 05:55; Start 11/07/16 at 12:00 Albuterol/ Ipratropium (Duoneb Neb) 1 ampule Q2HR NEB PRN NEB shortness of breath/wheezing; Start 11/07/16 at 23:30 Albuterol/ Ipratropium 1 ampule 1 ampule Q6HR NEB NEB Last administered on 11/10 04:03; Start 11/07/16 at 23:30 Vancomycin HCl 1200 mg/Sodium Chloride 262 ml @ 250 mls/hr ONCE ONCE IV Last administered on 11/08/16 00:34; Start 11/08/16 at 00:00; Stop 11/08/16 at 01:02 ; Status DC Pharmacy Profile Note (Vancomycin Consult Pharmacy) 0 ml @ 0 mls/hr UNSCH OTHER ; Start 11/07/16 at 23:45; Stop 11/08/16 at 12:45; Status DC Guaifenesin (Mucinex Er) 600 mg BID PO Last administered on 11/08/16 08:46; Start 11/07/16 at 23:45; Status Hold Furosemide (Lasix Inj) 20 mg ONCE ONCE IV PUSH Last administered on 11/08/16 04:00; Start 11/08/16 at 04:00; Stop 11/08/16 at 04:01; Status DC Dextrose 25 ml 25 ml ONCE ONCE IV Last administered on 11/08/16 07:24; Start 11/08/16 at 07:00; Stop 11/08/16 at 07:06; Status DC Sodium Chloride 1,000 ml @ 999 mls/hr BOLUS ONCE IV Last administered on 11/08 07:25; Start 11/08/16 at 07:15; Stop 11/08/16 at 08:15; Status DC Dextrose/Sodium Chloride 1,000 ml @ 84 mls/hr [id number] IV Last administered on 11/08/16 08:48; Start 11/08/16 at 07:30; Stop 11/08/16 at 10:10; Status DC Vancomycin HCl 1000 mg/Sodium Chloride 250 ml @ 250 mls/hr ONCE ONCE IV ; Start 11/08/16 at 10:15; Stop 11/08/16 at 11:14; Status UNV Pharmacy Profile Note 0 ml @ 0 mls/hr UNSCH OTHER ; Start 11/08/16 at 10:15 Sodium Chloride (NS 1000 ml Inj) 1,000 ml @ 999 mls/hr BOLUS ONCE IV Last administered on 11/08/16 11:01; Start 11/08/16 at 10:15; Stop 11/08/16 at 11:15 ; Status DC Thiamine HCl 100 mg 100 mg ONCE ONCE IM Last administered on 11/08/16 12:32; Start 11/08/16 at 10:15; Stop 11/08/16 at 10:17; Status DC Sodium Chloride 1,000 ml @ 999 mls/hr BOLUS ONCE IV ; Start 11/08/16 at 10:15 ; Stop 11/08/16 at 10:18; Status DC Sodium Chloride 1,000 ml @ 150 mls/hr Q6H40M IV Last administered on 12:10; Start 11/08/16 at 10:15; Stop 11/09/16 at 12:36; Status DC Sodium Chloride 250 ml @ 15 mls/hr ONCE ONCE IV ; Start 11/08/16 at 10:15; Stop 11/09/16 at 02:54; Status DC Sodium Chloride (NS 1000 ml Inj) 1,000 ml @ 999 mls/hr BOLUS ONCE IV ; Start 11/08/16 at 12:30; Stop 11/08/16 at 13:30; Status DC Hydrocortisone Sodium Succinate (SoluCORTEF INJ) 100 mg Q12HR IV PUSH ; Start at 13:00; Stop 11/08/16 at 14:32; Status DC Miscellaneous Information Patient in critical care unit? Ass... [id number] ; Start 11/08/16 at 13:15 Chlorhexidine Gluconate (Chlorhexidine 2% Cloth) 3 pack DAILY@04 TOP ; Start at 04:00; Stop 11/13/16 at 04:01 Chlorhexidine Gluconate 3 pack 3 pack UNSCH PRN TOP HYGIENIC CARE; Start at 13:15; Stop 11/13/16 at 13:12 Levofloxacin/ Dextrose (Levaquin 750 Mg Premix Inj) 150 ml @ 100 mls/hr Q48H IV Last administered on 11/08/16 15:26; Start 11/08/16 at 14:00 Hydrocortisone Sodium Succinate (SoluCORTEF INJ) 100 mg Q8HR IV PUSH Last administered on 11/09/16 06:36; Start 11/08/16 at 22:00; Stop 11/09/16 at 12:36 ; Status DC Diatrizoate Meglum/ Diatrizoate Sod 18 ml 18 ml ONCE ONCE PO Last administered on 11/08/16 15:25; Start 11/08/16 at 15:00; Stop 11/08/16 at 15:01 ; Status DC Thiamine HCl 100 mg/Sodium Chloride 101 ml @ 101 mls/hr DAILY IV Last administered on 11/09/16 08:41; Start 11/09/16 at 09:00; Stop 11/09/16 at 12:36 ; Status DC Norepinephrine Bitartrate (Levophed-Dextrose Drip) 250 ml @ 0 mls/hr TITRATE IV ; Start 11/08/16 at 15:30; Stop 11/09/16 at 12:36; Status DC Terbutaline Sulfate (Brethine Inj) 1 mg UNSCH PRN SQ For Extravasation; Start 11/08/16 at 15:30 Iodixanol 46 ml 46 ml STK-MED ONCE IV Last administered on 11/08/16 18:41; Start 11/08/16 at 18:41; Stop 11/08/16 at 18:42; Status DC Vancomycin HCl/ Sodium Chloride (Vancomycin Inj/ NS 250 ml Inj) 250 ml @ 250 mls/hr Q24H IV Last administered on 11/09/16 16:02; Start 11/09/16 at 11:00 Miscellaneous Information SPECIFIC LAB TO BE DRAWN:VANCO TROUGH DATE TO BE DR... ONCE ONCE XX ; Start 11/11/16 at 10:45; Stop 11/11/16 at 10:46 Hydrocortisone Sodium Succinate (SoluCORTEF INJ) 50 mg Q6HR IV PUSH Last administered on 11/10/16 05:55; Start 11/09/16 at 18:00 Thiamine HCl (Vitamin B1) 100 mg DAILY PO ; Start 11/10/16 at 09:00 Multivitamins 1 tab 1 tab DAILY PO ; Start 11/09/16 at 12:30 Dextrose/Sodium Chloride (D5W-NS 1000 ml Inj) 1,000 ml @ 75 mls/hr [id number] IV Last administered on 11/09/16 14:13; Start 11/09/16 at 12:30 Dextrose (D50w (Vial) Inj) 25 ml UNSCH PRN IV PUSH HYPOGLYCEMIA-SEE COMMENTS; Start 11/09/16 at 12:30 Glucagon (Glucagon Inj) 1 mg UNSCH PRN OTHER HYPOGLYCEMIA-SEE COMMENTS; Start 11/09/16 at 12:30 Insulin Human Regular 1 1 Q6H SQ ; Start 11/09/16 at 12:30 Calcium Gluconate/ Sodium Chloride (Calcium Gluconate Inj/NS Inj) 110 ml @ 110 mls/hr ONCE ONCE IV Last administered on 11/09/16 14:11; Start 11/09/16 at 14 :00; Stop 11/09/16 at 14:59; Status DC Bumetanide (Bumex Inj) 1 mg ONCE ONCE IV PUSH Last administered on 11/09/16 14:11; Start 11/09/16 at 12:45; Stop 11/09/16 at 12:46; Status DC Albumin Human (Albumin 5% Inj) 12.5 gm Q12H IV Last administered on 11/09/16 14:11; Start 11/09/16 at 12:45 Lidocaine HCl (Xylocaine-Mpf 1% Inj) 30 ml STK-MED ONCE .ROUTE Last administered on 11/09/16 15:11; Start 11/09/16 at 15:11; Stop 11/09/16 at 15:12 ; Status DC A/P Assessment and Plan A/P Alcohol dependence -Watch for alcohol withdrawal, supplement Thiamine, MVI -As needed morphine for pain Respiratory insufficiency-improving Left lower lobe pneumonia COPD -Continue with oxygen keep sat >92% - DuoNeb every 6 hours and when necessary -Decrease hydrocortisone 50 mg IV every 8 hours -continue Abx s/p Septic shock Lactic acidosis...trending down -Monitor HR and BP keep MAP>65mmHg -Continue stress dose steroids -continue antibiotics Abdominal pain Probable acute cholecystitis Acute pancreatitis Liver cirrhosis Ascites, with possible hemorrhagic component -s/p paracentesis with removal of 1000 ml of fluid -Gen. surgery Dr. Gutierrez and GI Dr. Tracey following -IV Protonix 40 twice a day -Broad-spectrum antibiotics Acute kidney failure -Monitor renal function, I/O's, electrolytes replacement per protocol. -Renal function fairly stable continue IV fluid and Albumin 12.5gms Q12 Septic shock Acute cholecystitis Left lower lobe pneumonia -Continue with abx( vancomycin, Zosyn and Levaquin)monitor for signs of infections ( Fever, WBC) -Follow up on BC from 11/08: NGTD, follow up on fluid cx Anemia requiring transfusion Thrombocytopenia Coagulopathy -s/p transfusion 2u PRBC 11/08 -Monitor CBC, CMP, Coags hypokalemia -Electrolytes replacement as needed PROPH: -Bilateral lower extremity SCDs. Avoid chemical prophylaxis due to anemia, coagulopathy and thrombocytopenia transfer to telemetry. d/w the Nelson Roberson MD Nov 10, 2016 08:25
[2016-11-10] MEDS ORDERED: BUMETANIDE INJ 1 MG/4 ML VIAL IV PUSH ONE (08:30)
[2016-11-10] MEDS ORDERED: POTASSIUM CHLORIDE 25 MEQ EFFERVESCENT TAB PO ONE ×2 (08:30→12:00)
--- NOTE | 2016-11-10 08:30 | HHI.FF ---
Face to Face Verification Diagnosis: (1) Pancreatitis (2) HTN (hypertension) Physical Therapy Order: Evaluate and Treat Home Health Nursing Order: Medical education Signs/symptoms of disease process Medication education-adverse effect Nursing assessment with vital signs I have seen patient Genoveva Trujillo on 11/10/16. My clinical findings support the need for the requested home health care services because: Ltd mobility - disease progression I certify that my clinical findings support that this patient is homebound because: Unsteady gait/balance Nelson Shaver MD Nov 10, 2016 08:30
[2016-11-10] MEDS: THIAMINE HCL 100 MG TAB PO SCH (08:51)
[2016-11-10] MEDS: MULTIVITAMIN TAB PO SCH (08:52)
[2016-11-10] MEDS: PANTOPRAZOLE SODIUM 40 MG VIAL IV PUSH SCH ×2 (08:52→19:48)
[2016-11-10] MEDS: SODIUM CHLORIDE 0.9% FLUSH 5 ML FLUSH FLUSH SCH ×2 (09:00→20:17)
--- NOTE | 2016-11-10 11:43 | HHI.GIFU ---
Subjective Remarks Patient is sitting up in chair feeling better today, denies nausea, vomiting, abdomen pain, hematochezia or melena. (Jyoti Andre) Objective Vitals I&O Vital Signs Date Time Temp Pulse Resp B/P Pulse Ox O2 Delivery O2 Flow Rate FiO2 11/10/16 11:03 16 11/10/16 10:00 83 11/10/16 08:13 96 Nasal Cannula 2.00 11/10/16 08:00 97.6 72 16 165/74 95 11/10/16 08:00 83 11/10/16 06:00 68 11/10/16 04:00 98.3 68 18 147/71 95 11/10/16 04:00 68 11/10/16 02:00 84 11/10/16 00:00 98.2 73 18 114/63 96 11/10/16 00:00 84 11/09/16 22:08 14 11/09/16 22:00 84 11/09/16 21:19 95 Nasal Cannula 2.00 11/09/16 20:00 98.7 79 14 122/67 94 11/09/16 20:00 79 11/09/16 18:00 68 11/09/16 16:00 68 11/09/16 16:00 98.5 84 20 146/76 96 11/09/16 14:00 68 11/09/16 12:00 68 11/09/16 12:00 98.2 75 22 124/60 97 I/O 11/09/16 11/09/16 11/09/16 11/10/16 11/10/16 11/10/16 07:00 15:00 23:00 07:00 15:00 23:00 Intake Total 917 ml 1043 ml 900 ml 1380 ml Output Total 400 ml 500 ml 800 ml 800 ml Balance 517 ml 543 ml 100 ml 580 ml Intake Oral 150 ml 240 ml 250 ml 100 ml IV Total 767 ml 803 ml 650 ml 1280 ml Output Urine Total 400 ml 500 ml 800 ml 800 ml Laboratory Laboratory Tests Test 11/09/16 11/10/16 13:26 04:37 Lactic Acid Level 1.8 White Blood Count 9.5 Red Blood Count 2.85 Hemoglobin 8.9 Hematocrit 25.5 Mean Corpuscular Volume 89.5 Mean Corpuscular Hemoglobin 31.1 Mean Corpuscular Hemoglobin 34.7 Concent Red Cell Distribution Width 18.2 Platelet Count 65 Mean Platelet Volume 8.2 Neutrophils (%) (Auto) Lymphocytes (%) (Auto) Monocytes (%) (Auto) Eosinophils (%) (Auto) Basophils (%) (Auto) Neutrophils # (Auto) Lymphocytes # (Auto) Monocytes # (Auto) Eosinophils # (Auto) Basophils # (Auto) CBC Comment AUTO DIFF Differential Total Cells 100 Counted Neutrophils % (Manual) 83 Band Neutrophils % 8 Lymphocytes % 6 Monocytes % 2 Neutrophils # (Manual) 8.7 Metamyelocytes 1 Differential Comment FINAL DIFF MANUAL Platelet Estimate LOW Platelet Morphology Comment NORMAL Concord Cells 1+ Keratocytes OCC Prothrombin Time 14.8 Prothromb Time International 1.3 Ratio Sodium Level 145 Potassium Level 3.0 Chloride Level 112 Carbon Dioxide Level 20.3 Anion Gap 13 Blood Urea Nitrogen 32 Creatinine 1.35 Estimat Glomerular Filtration 41 Rate Random Glucose 119 Calcium Level 7.8 Phosphorus Level 3.1 Magnesium Level 1.5 Total Bilirubin 8.5 Aspartate Amino Transf 25 (AST/SGOT) Alanine Aminotransferase 12 (ALT/SGPT) Alkaline Phosphatase 49 Ammonia 32 Total Protein 5.1 Albumin 2.0 Date/Time Procedure Status Source Growth 11/09/16 10:30 Gram Stain - Final Resulted Fluid Peritoneal Fluid 11/09/16 10:30 Body Fluid Culture - Preliminary Resulted Gram Negative Nik[place]j 11/08/16 10:20 Aerobic Blood Culture - Preliminary Resulted Blood Peripheral NO GROWTH IN 2 DAYS 11/08/16 10:20 Anaerobic Blood Culture - Preliminary Resulted Blood Peripheral NO GROWTH IN 2 DAYS Imaging Last Impressions Cyst Biopsy Asp-Paracentesis US 11/09/16 0000 Signed Impressions: Service Date/Time: Wednesday, November 09, 2016 09:26 - CONCLUSION: Uncomplicated ultrasound guided paracentesis. Ha Carey MD Lower Extremity Ultrasound 11/08/16 0000 Signed Impressions: Service Date/Time: Tuesday, November 08, 2016 13:59 - CONCLUSION: Negative for deep venous thrombosis.. Ramos Lo MD FACR Chest X-Ray 11/08/16 0000 Signed Impressions: Service Date/Time: Tuesday, November 08, 2016 04:27 - CONCLUSION: 1. Subsegmental basal airspace disease, slightly increased on the left since November 07. Hua Pennington MD Abdomen/Pelvis CT 11/08/16 0000 Signed Impressions: Service Date/Time: Tuesday, November 08, 2016 18:35 - CONCLUSION: Increasing ascites and developing anasarca. No other significant change. Edis Plascencia MD Gall Bladder Ultrasound 11/07/16 0000 Signed Impressions: Service Date/Time: Monday, November 07, 2016 09:48 - CONCLUSION: 1. Wall thickening and pericholecystic fluid of the gallbladder and differential includes secondary changes from chronic liver disease and acute cholecystitis. Equivocal sonographic Myles sign as the patient complains of pain during the entire scan. Sludge is in the gallbladder. 2. Ascites present and containing floating debris. The ascites is of heterogeneous attenuation on yesterday's CT suggesting there may be a recently hemorrhagic component. 3. 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 Tony Hdez MD Physical Exam HEENT: Normocephalic; atraumatic;+ jaundice. CHEST: CTA CARDIAC: RRR, hypotensive ABDOMEN: Soft, moderate diffuse tenderness, hepatosplenomegaly; bowel sounds are present in all four quadrants. EXTREMITIES: No clubbing, cyanosis, or edema. SKIN: Normal; no rash; + jaundice. RN RADIATION ONCOLOGY: No focal deficits; lethargic and oriented times three. (Amjaclyn,Jyoti COMPUTER PATTERNMAKER) Assessment and Plan Plan ASSESSMENT: - Acute Pancreatitis. Lipase normalized. Abdomen/Pelvis CT (11/06/16)----> 1. Cirrhotic liver with moderate abdominal ascites. 2. Dilated gallbladder containing intraluminal density and gallstones. 3. Wall thickening within the sigmoid colon with diverticulosis. Gall Bladder Ultrasound (11/07/16)------> 1. Wall thickening and pericholecystic fluid of the gallbladder and differential includes secondary changes from chronic liver disease and acute cholecystitis. Equivocal sonographic Myles sign as the patient complains of pain during the entire scan. Sludge is in the gallbladder. 2. Ascites present and containing floating debris. The ascites is of heterogeneous attenuation on yesterday's CT suggesting there may be a recently hemorrhagic component. 3. 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 Lipase improving. Lipase improving 13.9. NPO. IVF. - Cholecystitis. GS following, high risk for surgery, recommends treating with abx. Lactic acid improving WBC improving. Hypotensive. - Anemia. stable today, no sings of bleeding. EGD (07/28/16)---> single non bleeding ulcer 3-7 mm in size gastric antrum. Pathology with reactive/chemical gastropathy in a background of mild chronic gastritis with intestinal metaplasia and associated granulation tissue, suggestive of ulcer base. Negative for H. Pylori. Colonoscopy (10/10/15)----> Suboptimal preparation of the colon but no gross lesion was noted in the colon. - Ascites- S/P paracentesis, 1 L removed, cx pending, labs on indication of infection - Thrombocytopenia, Chronic. - Cirrhosis, History of alcohol abuse, Hep C, Chronic portal vein thrombosis. She tells me started tx for hep-c but has been on hold for 2 weeks due to hospitalization - Sepsis, Lactic acidosis.Improving Zosyn, Vancomycin. PLAN: - low salt diet - Cont. PPI - Cont. Abx - Monitor HH - Transfuse as necessary - CBC in am - GS following - Consider EGD +/- Colonoscopy this could be done as an OP - Patient seen and examined by Dr. Tracey and myself and this note is written on his behalf. (Jyoti Andre) Physician Comments Patient seen and examined Agree with above Continue with current supportive care Monitor labs Most likely will pursue endoscopy as an outpatient Not much to add from a GI standpoint at this point in time we will sign off ( Choco Tracey MD) Jyoti Andre Nov 10, 2016 11:43 Choco Tracey MD Nov 10, 2016 21:24
[2016-11-10] MEDS: ALBUMIN HUMAN 5% 12.5 GM/250 ML BOTTLE IV SCH ×2 (12:45→12:47)
[2016-11-10] MEDS: LEVOFLOXACIN 750 MG PREMIX INJ 150 ML IV SCH (14:12)
--- NOTE | 2016-11-10 15:02 | HHI.PR ---
Subjective Subjective Notes DAILY PROGRESS NOTE FOR SURGICAL ATTENDING, DR. HUA GUTIERREZ Objective Vitals/I&O Vital Signs Date Time Temp Pulse Resp B/P Pulse Ox O2 Delivery O2 Flow Rate FiO2 11/10/16 14:38 98.5 77 20 171/92 98 11/10/16 08:13 Nasal Cannula 2.00 Labs Laboratory Tests Test 11/10/16 04:37 White Blood Count 9.5 Red Blood Count 2.85 Hemoglobin 8.9 Hematocrit 25.5 Mean Corpuscular Volume 89.5 Mean Corpuscular Hemoglobin 31.1 Mean Corpuscular Hemoglobin 34.7 Concent Red Cell Distribution Width 18.2 Platelet Count 65 Mean Platelet Volume 8.2 Neutrophils (%) (Auto) Lymphocytes (%) (Auto) Monocytes (%) (Auto) Eosinophils (%) (Auto) Basophils (%) (Auto) Neutrophils # (Auto) Lymphocytes # (Auto) Monocytes # (Auto) Eosinophils # (Auto) Basophils # (Auto) CBC Comment AUTO DIFF Differential Total Cells 100 Counted Neutrophils % (Manual) 83 Band Neutrophils % 8 Lymphocytes % 6 Monocytes % 2 Neutrophils # (Manual) 8.7 Metamyelocytes 1 Differential Comment FINAL DIFF MANUAL Platelet Estimate LOW Platelet Morphology Comment NORMAL Zach Cells 1+ Keratocytes OCC Prothrombin Time 14.8 Prothromb Time International 1.3 Ratio Sodium Level 145 Potassium Level 3.0 Chloride Level 112 Carbon Dioxide Level 20.3 Anion Gap 13 Blood Urea Nitrogen 32 Creatinine 1.35 Estimat Glomerular Filtration 41 Rate Random Glucose 119 Calcium Level 7.8 Phosphorus Level 3.1 Magnesium Level 1.5 Total Bilirubin 8.5 Aspartate Amino Transf 25 (AST/SGOT) Alanine Aminotransferase 12 (ALT/SGPT) Alkaline Phosphatase 49 Ammonia 32 Total Protein 5.1 Albumin 2.0 Date/Time Procedure Status Source Growth 11/09/16 10:30 Gram Stain - Final Resulted Fluid Peritoneal Fluid 11/09/16 10:30 Body Fluid Culture - Preliminary Resulted Gram Negative Nik[place]j 11/08/16 10:20 Aerobic Blood Culture - Preliminary Resulted Blood Peripheral NO GROWTH IN 2 DAYS 11/08/16 10:20 Anaerobic Blood Culture - Preliminary Resulted Blood Peripheral NO GROWTH IN 2 DAYS Radiology Last Impressions Lower Extremity Ultrasound 11/08/16 0000 Signed Impressions: Service Date/Time: Tuesday, November 08, 2016 13:59 - CONCLUSION: Negative for deep venous thrombosis.. Ramos Lo MD FACR Chest X-Ray 11/08/16 0000 Signed Impressions: Service Date/Time: Tuesday, November 08, 2016 04:27 - CONCLUSION: 1. Subsegmental basal airspace disease, slightly increased on the left since November 07. Hua Pennington MD Gall Bladder Ultrasound 11/07/16 0000 Signed Impressions: Service Date/Time: Monday, November 07, 2016 09:48 - CONCLUSION: 1. Wall thickening and pericholecystic fluid of the gallbladder and differential includes secondary changes from chronic liver disease and acute cholecystitis. Equivocal sonographic Myles sign as the patient complains of pain during the entire scan. Sludge is in the gallbladder. 2. Ascites present and containing floating debris. The ascites is of heterogeneous attenuation on yesterday's CT suggesting there may be a recently hemorrhagic component. 3. 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 Tony Hdez MD Abdomen/Pelvis CT [id number] Signed Impressions: Service Date/Time: Sunday, November 06, 2016 20:50 - CONCLUSION: 1. Cirrhotic liver with moderate abdominal ascites. 2. Dilated gallbladder containing intraluminal density and gallstones. 3. Wall thickening within the sigmoid colon with diverticulosis. Ha Carey MD Abdomen: Non-distended, Non-tender, Other, BS normal Extremities: SCD's on Narrative Exam pt apears jaundice much more comfortable A/P Problem List: (1) Thrombocytopenia (2) Jaundice (3) Ascites (4) Varices, gastric (5) Alcohol abuse (6) Gastritis (7) Portal hypertensive gastropathy (8) Hepatitis C (9) Anemia (10) Pancreatitis (11) Cirrhosis of liver (12) Abdominal pain (13) Elevated liver enzymes (14) Thrombosis, portal vein Assessment and Plan DAILY PROGRESS NOTE FOR SURGICAL ATTENDING, DR. HUA GUTIERREZ 56 yo female with generalized abd pain , pneumonia and Hep c, portal thrombosis , increase lactic acid abd exam much improved after paracentesis no surgery appears to be in liver failure Will sign off no surgery issues at this point Problem Qualifiers (1) Ascites: Qualified Code: K70.31 - Ascites due to alcoholic cirrhosis (2) Hepatitis C: Qualified Code: B18.2 - Chronic hepatitis C without hepatic coma (3) Anemia: (4) Pancreatitis: Qualified Code: K85.00 - Idiopathic acute pancreatitis without infection or necrosis (5) Cirrhosis of liver: (6) Abdominal pain: Qualified Code: R10.84 - Generalized abdominal pain Hua Gutierrez MD Nov 10, 2016 15:02
[2016-11-10] MEDS ORDERED: VANCOMYCIN 1,000 MG/NS 250 ML IV SCH ×2 (16:00)
[2016-11-10] MEDS: DEXT 5%-NACL 0.9% 1000 ML INJ 1,000 ML IV SCH (18:30)
[2016-11-11] VITALS (13 sets, daily range): BP systolic 160–197; BP diastolic 89–105; PULSE 69–102; RESP 18–22; TEMP 98.4–98.9; O2SAT 90–98
[2016-11-11] MEDS: INSULIN NovoLIN REGULAR SUPPLEMENTAL SCALE SQ SCH ×4 (00:30→18:30)
[2016-11-11] MEDS: ALBUMIN HUMAN 5% 12.5 GM/250 ML BOTTLE IV SCH ×2 (02:18→12:32)
[2016-11-11] MEDS: MORPHINE SULFATE 4 MG/ML INJ IV PRN ×5 (02:57→21:45)
[2016-11-11] MEDS: CHLORHEXIDINE GLUCONATE 2 % 1 PACK (2 CLOTHS)(taper/protocol) TOP SCH (03:08)
[2016-11-11] MEDS: PIPERACIL-TAZO 4.5 GM PREMIX 100 ML IV SCH ×3 (04:06→21:32)
[2016-11-11] MEDS: RESP: ALBUTEROL 2.5 MG/IPRATROPIUM 0.5 MG NEB (SCH) NEB ×3 (04:33→15:37)
[2016-11-11] MEDS: HYDROCORTISONE SOD SUCCINATE 100 MG VIAL IV PUSH SCH ×2 (05:23→21:32)
[2016-11-11] MEDS: MULTIVITAMIN TAB PO SCH (08:25)
[2016-11-11] MEDS: SODIUM CHLORIDE 0.9% FLUSH 5 ML FLUSH FLUSH SCH ×2 (08:25→21:34)
[2016-11-11] MEDS: PANTOPRAZOLE SODIUM 40 MG VIAL IV PUSH SCH ×2 (08:25→21:32)
[2016-11-11] MEDS: THIAMINE HCL 100 MG TAB PO SCH (08:25)
[2016-11-11 08:45] LABS: AUTOMATED NEUTROPHIL # 8.4 TH/MM3 (1.8-7.7); BASOPHIL # 0.1 TH/MM3 (0-0.2); BASOPHIL % 0.7 % (0.0-2.0); HEMATOCRIT 27.6 % (35.0-46.0); LYMPH % 6.6 % (9.0-44.0); LYMPHOCYTE # 0.6 TH/MM3 (1.0-4.8); MEAN CELL VOLUME 90.3 FL (80.0-100.0); MEAN CORPUSCULAR HGB CONC 34.3 % (32.0-36.0); MONO % 6.4 % (0.0-8.0); NEUT % 86.3 % (16.0-70.0); PLATELET COUNT 51 TH/MM3 (150-450); RED BLOOD COUNT 3.06 MIL/MM3 (4.00-5.30); RED CELL DISTRIBUTION WIDTH 18.4 % (11.6-17.2); WHITE BLOOD COUNT 9.7 TH/MM3 (4.0-11.0)
[2016-11-11 08:47] LABS: HEMO FLAGS AUTO DIFF
[2016-11-11 09:32] LABS: ALKALINE PHOSPHATASE 55 U/L (45-117); ALT (GPT) 10 U/L (10-53); ANION GAP 11 MEQ/L (5-15); AST (GOT) 18 U/L (15-37); BICARBONATE 21.2 MEQ/L (21.0-32.0); BLOOD UREA NITROGEN 23 MG/DL (7-18); CHLORIDE 109 MEQ/L (98-107); GLOMERULAR FILTRATION RATE 52 ML/MIN (>89); SODIUM (NA) 141 MEQ/L (136-145)
--- NOTE | 2016-11-11 09:32 | HHI.PR ---
Subjective Remarks low grade fever last night. denies abdominal pain, nausea or vomiting. Objective Vitals Vital Signs Date Time Temp Pulse Resp B/P Pulse Ox O2 Delivery O2 Flow Rate FiO2 11/11/16 06:00 87 11/11/16 04:00 98.7 77 20 185/89 90 11/11/16 04:00 77 11/11/16 02:00 71 11/11/16 00:00 98.5 84 18 174/96 92 11/11/16 00:00 84 11/10/16 22:00 98 11/10/16 20:41 96 Nasal Cannula 2.00 11/10/16 20:00 100.1 96 20 133/58 100 11/10/16 20:00 96 11/10/16 18:00 83 11/10/16 16:00 83 11/10/16 16:00 98.5 86 18 148/86 96 11/10/16 15:13 16 11/10/16 14:38 98.5 77 20 171/92 98 11/10/16 14:00 83 11/10/16 12:00 83 11/10/16 11:03 16 11/10/16 10:00 83 I/O 11/10/16 11/10/16 11/10/16 11/11/16 11/11/16 11/11/16 07:00 15:00 23:00 07:00 15:00 23:00 Intake Total 1380 ml 1576 ml 419 ml 374 ml Output Total 800 ml 900 ml 550 ml 300 ml Balance 580 ml 676 ml -131 ml 74 ml Intake Oral 100 ml 720 ml IV Total 1280 ml 856 ml 419 ml 374 ml Output Urine Total 800 ml 900 ml 550 ml 300 ml Result Diagram: 11/11/16 0805 11/10/16 0437 Imaging Last Impressions Cyst Biopsy Asp-Paracentesis US 11/09/16 0000 Signed Impressions: Service Date/Time: Wednesday, November 09, 2016 09:26 - CONCLUSION: Uncomplicated ultrasound guided paracentesis. Ha Carey MD Lower Extremity Ultrasound 11/08/16 0000 Signed Impressions: Service Date/Time: Tuesday, November 08, 2016 13:59 - CONCLUSION: Negative for deep venous thrombosis.. Ramos Lo MD FACR Chest X-Ray 11/08/16 0000 Signed Impressions: Service Date/Time: Tuesday, November 08, 2016 04:27 - CONCLUSION: 1. Subsegmental basal airspace disease, slightly increased on the left since November 07. Hua Pennington MD Abdomen/Pelvis CT 11/08/16 0000 Signed Impressions: Service Date/Time: Tuesday, November 08, 2016 18:35 - CONCLUSION: Increasing ascites and developing anasarca. No other significant change. Edis Plascencia MD Gall Bladder Ultrasound 11/07/16 0000 Signed Impressions: Service Date/Time: Monday, November 07, 2016 09:48 - CONCLUSION: 1. Wall thickening and pericholecystic fluid of the gallbladder and differential includes secondary changes from chronic liver disease and acute cholecystitis. Equivocal sonographic Myles sign as the patient complains of pain during the entire scan. Sludge is in the gallbladder. 2. Ascites present and containing floating debris. The ascites is of heterogeneous attenuation on yesterday's CT suggesting there may be a recently hemorrhagic component. 3. 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 Tony Hdez MD Objective Remarks GENERAL: in no apparent distress. CARDIOVASCULAR: Regular rate and irregular rhythm without murmurs, gallops, or rubs. RESPIRATORY: Clear to auscultation. Breath sounds equal bilaterally. No wheezes , rales, or rhonchi. GASTROINTESTINAL: Abdomen soft, non-tender, nondistended. Normal, active bowel sounds MUSCULOSKELETAL: Extremities without clubbing, cyanosis, or edema. NEURO: Alert & Oriented x4 to person, place, time, situation. Moves all ext x4 Procedures paracentesis Medications and IVs Current Medications Morphine Sulfate (Morphine Inj) 4 mg ONCE ONCE IV PUSH Last administered on 19:47; Start 11/06/16 at 19:30; Stop 11/06/16 at 19:31; Status DC Ondansetron HCl 4 mg 4 mg ONCE ONCE IVP Last administered on 11/06/16 19:47; Start 11/06/16 at 19:30; Stop 11/06/16 at 19:31; Status DC Sodium Chloride (NS 1000 ml Inj) 1,000 ml @ 1,000 mls/hr Q1H IV Last administered on 11/06/16 19:47; Start 11/06/16 at 19:28; Stop 11/06/16 at 20:27 ; Status DC IV Flush (NS Flush) 2 ml UNSCH PRN IVF FLUSH AFTER USING IV ACCESS; Start 11/06 at 19:30; Stop 11/06/16 at 21:17; Status DC Famotidine (Pepcid Inj) 20 mg ONCE ONCE IV PUSH Last administered on 19:47; Start 11/06/16 at 19:30; Stop 11/06/16 at 19:31; Status DC Iohexol (Omnipaque 350 Inj) 88 ml STK-MED ONCE IV Last administered on 20:54; Start 11/06/16 at 20:54; Stop 11/06/16 at 20:55; Status DC Morphine Sulfate (Morphine Inj) 4 mg ONCE ONCE IV PUSH Last administered on 22:48; Start 11/06/16 at 21:15; Stop 11/06/16 at 21:16; Status DC Pantoprazole Sodium 40 mg 40 mg Q12H IV PUSH Last administered on 11/11/16 08: 25; Start 11/07/16 at 09:00 Sodium Chloride (NS 1000 ml Inj) 1,000 ml @ 125 mls/hr Q8H IV Last administered on 11/08/16 08:49; Start 11/06/16 at 22:00; Stop 11/08/16 at 10:55 ; Status DC IV Flush (NS Flush) 2 ml UNSCH PRN FLUSH FLUSH AFTER USING IV ACCESS Last administered on 11/07/16 09:55; Start 11/06/16 at 21:15 IV Flush (NS Flush) 2 ml BID FLUSH Last administered on 11/11/16 08:25; Start 11/07/16 at 09:00 Ondansetron HCl (Zofran Inj) 4 mg Q6H PRN IVP NAUSEA OR VOMITING; Start at 21:15 Bisacodyl (Dulcolax Supp) 10 mg DAILY PRN MI CONSTIPATION; Start 11/06/16 at 21 :15 Acetaminophen (Tylenol) 650 mg Q6H PRN PO FEVER; Start 11/06/16 at 21:15 Morphine Sulfate (Morphine Inj) 2 mg Q3H PRN IV Pain 6-10 Last administered on 11/11/16 08:26; Start 11/06/16 at 21:15 Oxycodone HCl (Roxicodone) 5 mg Q4H PRN PO PAIN SCALE 3 TO 5 Last administered on 11/10/16 14:13; Start 11/06/16 at 21:15 Gabapentin (Neurontin) 300 mg TID PO Last administered on 11/08/16 12:01; Start 11/07/16 at 09:00; Status Hold Propranolol HCl (Inderal) 20 mg BID PO Last administered on 11/08/16 08:46; Start 11/07/16 at 09:00; Status Hold Spironolactone (Aldactone) 25 mg DAILY PO Last administered on 11/07/16 07:45 ; Start 11/07/16 at 09:00; Status Hold Trazodone HCl (Desyrel) 50 mg HS PO Last administered on 11/07/16 22:16; Start 11/07/16 at 21:00; Status Hold Morphine Sulfate 4 mg 4 mg ONCE ONCE IV PUSH Last administered on 11/07/16 09 :55; Start 11/07/16 at 09:30; Stop 11/07/16 at 09:31; Status DC Piperacillin Sod/ Tazobactam Sod (Zosyn 4.5 Gm Premix) 100 ml @ 200 mls/hr Q8H IV Last administered on 11/11/16 04:06; Start 11/07/16 at 12:00 Albuterol/ Ipratropium (Duoneb Neb) 1 ampule Q2HR NEB PRN NEB shortness of breath/wheezing; Start 11/07/16 at 23:30 Albuterol/ Ipratropium 1 ampule 1 ampule Q6HR NEB NEB Last administered on 11/11 04:33; Start 11/07/16 at 23:30 Vancomycin HCl 1200 mg/Sodium Chloride 262 ml @ 250 mls/hr ONCE ONCE IV Last administered on 11/08/16 00:34; Start 11/08/16 at 00:00; Stop 11/08/16 at 01:02 ; Status DC Pharmacy Profile Note (Vancomycin Consult Pharmacy) 0 ml @ 0 mls/hr UNSCH OTHER ; Start 11/07/16 at 23:45; Stop 11/08/16 at 12:45; Status DC Guaifenesin (Mucinex Er) 600 mg BID PO Last administered on 11/08/16 08:46; Start 11/07/16 at 23:45; Status Hold Furosemide (Lasix Inj) 20 mg ONCE ONCE IV PUSH Last administered on 11/08/16 04:00; Start 11/08/16 at 04:00; Stop 11/08/16 at 04:01; Status DC Dextrose 25 ml 25 ml ONCE ONCE IV Last administered on 11/08/16 07:24; Start 11/08/16 at 07:00; Stop 11/08/16 at 07:06; Status DC Sodium Chloride 1,000 ml @ 999 mls/hr BOLUS ONCE IV Last administered on 11/08 07:25; Start 11/08/16 at 07:15; Stop 11/08/16 at 08:15; Status DC Dextrose/Sodium Chloride 1,000 ml @ 84 mls/hr [id number] IV Last administered on 11/08/16 08:48; Start 11/08/16 at 07:30; Stop 11/08/16 at 10:10; Status DC Vancomycin HCl 1000 mg/Sodium Chloride 250 ml @ 250 mls/hr ONCE ONCE IV ; Start 11/08/16 at 10:15; Stop 11/08/16 at 11:14; Status UNV Pharmacy Profile Note 0 ml @ 0 mls/hr UNSCH OTHER ; Start 11/08/16 at 10:15 Sodium Chloride (NS 1000 ml Inj) 1,000 ml @ 999 mls/hr BOLUS ONCE IV Last administered on 11/08/16 11:01; Start 11/08/16 at 10:15; Stop 11/08/16 at 11:15 ; Status DC Thiamine HCl 100 mg 100 mg ONCE ONCE IM Last administered on 11/08/16 12:32; Start 11/08/16 at 10:15; Stop 11/08/16 at 10:17; Status DC Sodium Chloride 1,000 ml @ 999 mls/hr BOLUS ONCE IV ; Start 11/08/16 at 10:15 ; Stop 11/08/16 at 10:18; Status DC Sodium Chloride 1,000 ml @ 150 mls/hr Q6H40M IV Last administered on 12:10; Start 11/08/16 at 10:15; Stop 11/09/16 at 12:36; Status DC Sodium Chloride 250 ml @ 15 mls/hr ONCE ONCE IV ; Start 11/08/16 at 10:15; Stop 11/09/16 at 02:54; Status DC Sodium Chloride (NS 1000 ml Inj) 1,000 ml @ 999 mls/hr BOLUS ONCE IV ; Start 11/08/16 at 12:30; Stop 11/08/16 at 13:30; Status DC Hydrocortisone Sodium Succinate (SoluCORTEF INJ) 100 mg Q12HR IV PUSH ; Start at 13:00; Stop 11/08/16 at 14:32; Status DC Miscellaneous Information Patient in critical care unit? Ass... [id number] ; Start 11/08/16 at 13:15 Chlorhexidine Gluconate (Chlorhexidine 2% Cloth) 3 pack DAILY@04 TOP Last administered on 11/11/16 03:08; Start 11/09/16 at 04:00; Stop 11/13/16 at 04:01 Chlorhexidine Gluconate 3 pack 3 pack UNSCH PRN TOP HYGIENIC CARE; Start at 13:15; Stop 11/13/16 at 13:12 Levofloxacin/ Dextrose (Levaquin 750 Mg Premix Inj) 150 ml @ 100 mls/hr Q48H IV Last administered on 11/10/16 14:12; Start 11/08/16 at 14:00 Hydrocortisone Sodium Succinate (SoluCORTEF INJ) 100 mg Q8HR IV PUSH Last administered on 11/09/16 06:36; Start 11/08/16 at 22:00; Stop 11/09/16 at 12:36 ; Status DC Diatrizoate Meglum/ Diatrizoate Sod 18 ml 18 ml ONCE ONCE PO Last administered on 11/08/16 15:25; Start 11/08/16 at 15:00; Stop 11/08/16 at 15:01 ; Status DC Thiamine HCl 100 mg/Sodium Chloride 101 ml @ 101 mls/hr DAILY IV Last administered on 11/09/16 08:41; Start 11/09/16 at 09:00; Stop 11/09/16 at 12:36 ; Status DC Norepinephrine Bitartrate (Levophed-Dextrose Drip) 250 ml @ 0 mls/hr TITRATE IV ; Start 11/08/16 at 15:30; Stop 11/09/16 at 12:36; Status DC Terbutaline Sulfate (Brethine Inj) 1 mg UNSCH PRN SQ For Extravasation; Start 11/08/16 at 15:30 Iodixanol 46 ml 46 ml STK-MED ONCE IV Last administered on 11/08/16 18:41; Start 11/08/16 at 18:41; Stop 11/08/16 at 18:42; Status DC Vancomycin HCl/ Sodium Chloride (Vancomycin Inj/ NS 250 ml Inj) 250 ml @ 250 mls/hr Q24H IV Last administered on 11/09/16 16:02; Start 11/09/16 at 11:00; Stop 11/10/16 at 09:35; Status DC Miscellaneous Information SPECIFIC LAB TO BE DRAWN:[facility]ANCO TROUGH DATE TO BE DR... ONCE ONCE XX ; Start 11/11/16 at 15:45; Stop 11/11/16 at 15:46 Hydrocortisone Sodium Succinate (SoluCORTEF INJ) 50 mg Q6HR IV PUSH Last administered on 11/10/16 05:55; Start 11/09/16 at 18:00; Stop 11/10/16 at 08:29; Status DC Thiamine HCl (Vitamin B1) 100 mg DAILY PO Last administered on 11/11/16 08:25; Start 11/10/16 at 09:00 Multivitamins 1 tab 1 tab DAILY PO Last administered on 11/11/16 08:25; Start 11/09/16 at 12:30 Dextrose/Sodium Chloride (D5W-NS 1000 ml Inj) 1,000 ml @ 50 mls/hr Q20H IV Last administered on 11/10/16 18:30; Start 11/09/16 at 12:30 Dextrose (D50w (Vial) Inj) 25 ml UNSCH PRN IV PUSH HYPOGLYCEMIA-SEE COMMENTS; Start 11/09/16 at 12:30 Glucagon (Glucagon Inj) 1 mg UNSCH PRN OTHER HYPOGLYCEMIA-SEE COMMENTS; Start 11/09/16 at 12:30 Insulin Human Regular 1 1 Q6H SQ ; Start 11/09/16 at 12:30 Calcium Gluconate/ Sodium Chloride (Calcium Gluconate Inj/NS Inj) 110 ml @ 110 mls/hr ONCE ONCE IV Last administered on 11/09/16 14:11; Start 11/09/16 at 14 :00; Stop 11/09/16 at 14:59; Status DC Bumetanide (Bumex Inj) 1 mg ONCE ONCE IV PUSH Last administered on 11/09/16 14:11; Start 11/09/16 at 12:45; Stop 11/09/16 at 12:46; Status DC Albumin Human (Albumin 5% Inj) 12.5 gm Q12H IV Last administered on 11/11/16 02 :18; Start 11/09/16 at 12:45 Lidocaine HCl (Xylocaine-Mpf 1% Inj) 30 ml STK-MED ONCE .ROUTE Last administered on 11/09/16 15:11; Start 11/09/16 at 15:11; Stop 11/09/16 at 15:12 ; Status DC Hydrocortisone Sodium Succinate (SoluCORTEF INJ) 50 mg Q8HR IV PUSH Last administered on 11/11/16 05:23; Start 11/10/16 at 14:00 Potassium Bicarb/ Potassium Chloride (K-Lyte Cl Eff) 25 meq ONCE ONCE PO Last administered on 11/10/16 08:52; Start 11/10/16 at 08:30; Stop 11/10/16 at 08: 34; Status DC Potassium Bicarb/ Potassium Chloride (K-Lyte Cl Eff) 25 meq ONCE ONCE PO Last administered on 11/10/16 12:47; Start 11/10/16 at 12:00; Stop 11/10/16 at 12: 01; Status DC Bumetanide 0.5 mg 0.5 mg ONCE ONCE IV PUSH Last administered on 11/10/16 08:30 ; Start 11/10/16 at 08:30; Stop 11/10/16 at 08:33; Status DC Vancomycin HCl/ Sodium Chloride (Vancomycin Inj/ NS 250 ml Inj) 250 ml @ 250 mls/hr Q24H IV Last administered on 11/10/16 19:07; Start 11/10/16 at 16:00 A/P Assessment and Plan A/P Alcohol dependence -Watch for alcohol withdrawal, supplement Thiamine, MVI -As needed morphine for pain Respiratory insufficiency-improving Left lower lobe pneumonia COPD -Continue with oxygen keep sat >92% - continue neb treatment -Decrease hydrocortisone 50 mg IV every 12 hours -continue Abx s/p Septic shock Lactic acidosis...trending down -Monitor HR and BP keep MAP>65mmHg -Continue stress dose steroids -continue antibiotics Abdominal pain Probable acute cholecystitis Acute pancreatitis Liver cirrhosis Ascites, with possible hemorrhagic component -s/p paracentesis with removal of 1000 ml of fluid -fluid culture positive for gram negative zuhair -IV Protonix 40 twice a day -Broad-spectrum antibiotics -general surgery signed off. Acute kidney failure -Monitor renal function, I/O's, electrolytes replacement per protocol. -Renal function fairly stable continue IV fluid and Albumin 12.5gms Q12 Septic shock Acute cholecystitis Left lower lobe pneumonia -Continue with abx( vancomycin, Zosyn and Levaquin)monitor for signs of infections ( Fever, WBC) -Follow up on BC from 11/08: NGTD, follow up on fluid cx Anemia requiring transfusion Thrombocytopenia Coagulopathy -s/p transfusion 2u PRBC 11/08 -Monitor CBC, CMP, Coags hypokalemia -Electrolytes replacement as needed PROPH: -Bilateral lower extremity SCDs. Avoid chemical prophylaxis due to anemia, coagulopathy and thrombocytopenia for transfer to telemetry. Nelson Shaver MD Nov 11, 2016 09:31
[2016-11-11 09:39] LABS: POTASSIUM 2.7 MEQ/L (3.5-5.1)
[2016-11-11] MEDS ORDERED: POTASSIUM CHLORIDE 25 MEQ EFFERVESCENT TAB PO ONE ×2 (11:00→14:00)
[2016-11-11] MEDS ORDERED: POTASSIUM CHLOR 20 MEQ PREMIX 100 ML IV ONE (11:00)
[2016-11-11 11:20] LABS: PLATELET ESTIMATE SMEAR LOW (NORMAL); PLATELET MORPHOLOGY NORMAL (NORMAL); SCAN/DIFF AUTO DIFF CONFIRMED
[2016-11-11] MEDS: ENALAPRILAT 1.25 MG/ML VIAL IV PUSH PRN ×2 (12:31→15:16)
[2016-11-11] MEDS ORDERED: PHARMACY ORDERED LAB XX ONE (15:45)
[2016-11-11] MEDS: ONDANSETRON HCL 4 MG/2 ML VIAL IVP PRN (17:55)
[2016-11-11] MEDS: PROPRANOLOL HCL 20 MG TAB PO SCH (21:34)
[2016-11-12] VITALS (9 sets, daily range): BP systolic 148–197; BP diastolic 67–100; PULSE 65–81; RESP 18–20; TEMP 97.8–98.4; O2SAT 93–97
[2016-11-12] MEDS: INSULIN NovoLIN REGULAR SUPPLEMENTAL SCALE SQ SCH ×4 (00:30→17:45)
[2016-11-12] MEDS: ONDANSETRON HCL 4 MG/2 ML VIAL IVP PRN ×3 (00:41→21:38)
[2016-11-12] MEDS: MORPHINE SULFATE 4 MG/ML INJ IV PRN ×6 (00:42→21:37)
[2016-11-12] MEDS: ALBUMIN HUMAN 5% 12.5 GM/250 ML BOTTLE IV SCH ×2 (00:49→15:09)
[2016-11-12] MEDS: PIPERACIL-TAZO 4.5 GM PREMIX 100 ML IV SCH (03:40)
[2016-11-12] MEDS: ENALAPRILAT 1.25 MG/ML VIAL IV PUSH PRN (03:41)
[2016-11-12] MEDS: CHLORHEXIDINE GLUCONATE 2 % 1 PACK (2 CLOTHS)(taper/protocol) TOP SCH (04:00)
[2016-11-12 08:24] LABS: BICARBONATE 20.5 MEQ/L (21.0-32.0)
[2016-11-12] MEDS: HYDROCORTISONE SOD SUCCINATE 100 MG VIAL IV PUSH SCH (09:00)
[2016-11-12] MEDS: SODIUM CHLORIDE 0.9% FLUSH 5 ML FLUSH FLUSH SCH ×2 (09:00→21:45)
[2016-11-12] MEDS: PANTOPRAZOLE SODIUM 40 MG VIAL IV PUSH SCH (09:00)
[2016-11-12] MEDS ORDERED: POTASSIUM CHLORIDE 10 MEQ CONTROLLED RELEASE TAB PO ONE ×2 (09:45→14:00)
[2016-11-12] MEDS ORDERED: FUROSEMIDE 40 MG TAB PO SCH (09:45)
--- NOTE | 2016-11-12 09:45 | HHI.PR ---
Subjective Remarks ill looking but in no acute distress. says that she's not feeling well today. has some sob. no fever. complaining of some abdominal pain along with mild nausea. Objective Vitals Vital Signs Date Time Temp Pulse Resp B/P Pulse Ox O2 Delivery O2 Flow Rate FiO2 11/12/16 04:18 98.2 81 20 197/67 96 11/12/16 00:00 98.4 75 20 183/100 93 11/11/16 20:18 87 11/11/16 20:00 98.4 94 20 160/104 97 11/11/16 18:25 98.6 102 20 161/96 94 11/11/16 16:00 96 11/11/16 16:00 98.6 96 22 179/102 97 11/11/16 14:00 92 11/11/16 12:00 98.7 90 22 197/104 98 11/11/16 12:00 90 11/11/16 10:00 87 11/11/16 09:47 96 Nasal Cannula 2.00 I/O 11/11/16 11/11/16 11/11/16 11/12/16 11/12/16 11/12/16 07:00 15:00 23:00 07:00 15:00 23:00 Intake Total 374 ml 906 ml 240 ml 240 ml Output Total 300 ml 350 ml 100 ml Balance 74 ml 556 ml 240 ml 140 ml Intake Oral 290 ml 240 ml 240 ml IV Total 374 ml 616 ml Output Urine Total 300 ml 350 ml 100 ml # Voids 1 # Bowel Movements 0 Result Diagram: 11/11/16 0805 11/12/16 0703 Imaging Last Impressions Cyst Biopsy Asp-Paracentesis US 11/09/16 0000 Signed Impressions: Service Date/Time: Wednesday, November 09, 2016 09:26 - CONCLUSION: Uncomplicated ultrasound guided paracentesis. Ha Carey MD Lower Extremity Ultrasound 11/08/16 0000 Signed Impressions: Service Date/Time: Tuesday, November 08, 2016 13:59 - CONCLUSION: Negative for deep venous thrombosis.. Ramos Lo MD FACR Chest X-Ray 11/08/16 0000 Signed Impressions: Service Date/Time: Tuesday, November 08, 2016 04:27 - CONCLUSION: 1. Subsegmental basal airspace disease, slightly increased on the left since November 07. Hua Pennington MD Abdomen/Pelvis CT 11/08/16 0000 Signed Impressions: Service Date/Time: Tuesday, November 08, 2016 18:35 - CONCLUSION: Increasing ascites and developing anasarca. No other significant change. Edis Plascencia MD Gall Bladder Ultrasound 11/07/16 0000 Signed Impressions: Service Date/Time: Monday, November 07, 2016 09:48 - CONCLUSION: 1. Wall thickening and pericholecystic fluid of the gallbladder and differential includes secondary changes from chronic liver disease and acute cholecystitis. Equivocal sonographic Myles sign as the patient complains of pain during the entire scan. Sludge is in the gallbladder. 2. Ascites present and containing floating debris. The ascites is of heterogeneous attenuation on yesterday's CT suggesting there may be a recently hemorrhagic component. 3. 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 Tony Hdez MD Objective Remarks GENERAL: ill looking but in no apparent distress. CARDIOVASCULAR: Regular rate and irregular rhythm without murmurs, gallops, or rubs. RESPIRATORY: Clear to auscultation. Breath sounds equal bilaterally. No wheezes , rales, or rhonchi. GASTROINTESTINAL: Abdomen soft, non-tender, distended. Normal, active bowel sounds MUSCULOSKELETAL: Extremities without clubbing, cyanosis, or edema. NEURO: Alert & Oriented x4 to person, place, time, situation. Moves all ext x4 Procedures paracentesis Medications and IVs Current Medications Morphine Sulfate (Morphine Inj) 4 mg ONCE ONCE IV PUSH Last administered on 19:47; Start 11/06/16 at 19:30; Stop 11/06/16 at 19:31; Status DC Ondansetron HCl 4 mg 4 mg ONCE ONCE IVP Last administered on 11/06/16 19:47; Start 11/06/16 at 19:30; Stop 11/06/16 at 19:31; Status DC Sodium Chloride (NS 1000 ml Inj) 1,000 ml @ 1,000 mls/hr Q1H IV Last administered on 11/06/16 19:47; Start 11/06/16 at 19:28; Stop 11/06/16 at 20:27 ; Status DC IV Flush (NS Flush) 2 ml UNSCH PRN IVF FLUSH AFTER USING IV ACCESS; Start 11/06 at 19:30; Stop 11/06/16 at 21:17; Status DC Famotidine (Pepcid Inj) 20 mg ONCE ONCE IV PUSH Last administered on 19:47; Start 11/06/16 at 19:30; Stop 11/06/16 at 19:31; Status DC Iohexol (Omnipaque 350 Inj) 88 ml STK-MED ONCE IV Last administered on 20:54; Start 11/06/16 at 20:54; Stop 11/06/16 at 20:55; Status DC Morphine Sulfate (Morphine Inj) 4 mg ONCE ONCE IV PUSH Last administered on 22:48; Start 11/06/16 at 21:15; Stop 11/06/16 at 21:16; Status DC Pantoprazole Sodium 40 mg 40 mg Q12H IV PUSH Last administered on 11/11/16 21: 32; Start 11/07/16 at 09:00 Sodium Chloride (NS 1000 ml Inj) 1,000 ml @ 125 mls/hr Q8H IV Last administered on 11/08/16 08:49; Start 11/06/16 at 22:00; Stop 11/08/16 at 10:55 ; Status DC IV Flush (NS Flush) 2 ml UNSCH PRN FLUSH FLUSH AFTER USING IV ACCESS Last administered on 11/07/16 09:55; Start 11/06/16 at 21:15 IV Flush (NS Flush) 2 ml BID FLUSH Last administered on 11/11/16 21:34; Start 11/07/16 at 09:00 Ondansetron HCl (Zofran Inj) 4 mg Q6H PRN IVP NAUSEA OR VOMITING Last administered on 11/12/16 06:46; Start 11/06/16 at 21:15 Bisacodyl (Dulcolax Supp) 10 mg DAILY PRN CA CONSTIPATION Last administered on 11/11/16 22:44; Start 11/06/16 at 21:15 Acetaminophen (Tylenol) 650 mg Q6H PRN PO FEVER; Start 11/06/16 at 21:15 Morphine Sulfate (Morphine Inj) 2 mg Q3H PRN IV Pain 6-10 Last administered on 11/12/16 06:46; Start 11/06/16 at 21:15 Oxycodone HCl (Roxicodone) 5 mg Q4H PRN PO PAIN SCALE 3 TO 5 Last administered on 11/10/16 14:13; Start 11/06/16 at 21:15 Gabapentin (Neurontin) 300 mg TID PO Last administered on 11/08/16 12:01; Start 11/07/16 at 09:00; Status Hold Propranolol HCl (Inderal) 20 mg BID PO Last administered on 11/11/16 21:34; Start 11/07/16 at 09:00 Spironolactone (Aldactone) 25 mg DAILY PO Last administered on 11/07/16 07:45 ; Start 11/07/16 at 09:00; Status Hold Trazodone HCl (Desyrel) 50 mg HS PO Last administered on 11/07/16 22:16; Start 11/07/16 at 21:00; Status Hold Morphine Sulfate 4 mg 4 mg ONCE ONCE IV PUSH Last administered on 11/07/16 09 :55; Start 11/07/16 at 09:30; Stop 11/07/16 at 09:31; Status DC Piperacillin Sod/ Tazobactam Sod (Zosyn 4.5 Gm Premix) 100 ml @ 200 mls/hr Q8H IV Last administered on 11/12/16 03:40; Start 11/07/16 at 12:00 Albuterol/ Ipratropium (Duoneb Neb) 1 ampule Q2HR NEB PRN NEB shortness of breath/wheezing; Start 11/07/16 at 23:30 Albuterol/ Ipratropium 1 ampule 1 ampule Q6HR NEB NEB Last administered on 11/11 15:37; Start 11/07/16 at 23:30; Stop 11/11/16 at 23:30; Status DC Vancomycin HCl 1200 mg/Sodium Chloride 262 ml @ 250 mls/hr ONCE ONCE IV Last administered on 11/08/16 00:34; Start 11/08/16 at 00:00; Stop 11/08/16 at 01:02 ; Status DC Pharmacy Profile Note (Vancomycin Consult Pharmacy) 0 ml @ 0 mls/hr UNSCH OTHER ; Start 11/07/16 at 23:45; Stop 11/08/16 at 12:45; Status DC Guaifenesin (Mucinex Er) 600 mg BID PO Last administered on 11/08/16 08:46; Start 11/07/16 at 23:45; Status Hold Furosemide (Lasix Inj) 20 mg ONCE ONCE IV PUSH Last administered on 11/08/16 04:00; Start 11/08/16 at 04:00; Stop 11/08/16 at 04:01; Status DC Dextrose 25 ml 25 ml ONCE ONCE IV Last administered on 11/08/16 07:24; Start 11/08/16 at 07:00; Stop 11/08/16 at 07:06; Status DC Sodium Chloride 1,000 ml @ 999 mls/hr BOLUS ONCE IV Last administered on 11/08 07:25; Start 11/08/16 at 07:15; Stop 11/08/16 at 08:15; Status DC Dextrose/Sodium Chloride 1,000 ml @ 84 mls/hr [id number] IV Last administered on 11/08/16 08:48; Start 11/08/16 at 07:30; Stop 11/08/16 at 10:10; Status DC Vancomycin HCl 1000 mg/Sodium Chloride 250 ml @ 250 mls/hr ONCE ONCE IV ; Start 11/08/16 at 10:15; Stop 11/08/16 at 11:14; Status UNV Pharmacy Profile Note 0 ml @ 0 mls/hr UNSCH OTHER ; Start 11/08/16 at 10:15; Stop 11/11/16 at 09:33; Status DC Sodium Chloride (NS 1000 ml Inj) 1,000 ml @ 999 mls/hr BOLUS ONCE IV Last administered on 11/08/16 11:01; Start 11/08/16 at 10:15; Stop 11/08/16 at 11:15 ; Status DC Thiamine HCl 100 mg 100 mg ONCE ONCE IM Last administered on 11/08/16 12:32; Start 11/08/16 at 10:15; Stop 11/08/16 at 10:17; Status DC Sodium Chloride 1,000 ml @ 999 mls/hr BOLUS ONCE IV ; Start 11/08/16 at 10:15 ; Stop 11/08/16 at 10:18; Status DC Sodium Chloride 1,000 ml @ 150 mls/hr Q6H40M IV Last administered on 12:10; Start 11/08/16 at 10:15; Stop 11/09/16 at 12:36; Status DC Sodium Chloride 250 ml @ 15 mls/hr ONCE ONCE IV ; Start 11/08/16 at 10:15; Stop 11/09/16 at 02:54; Status DC Sodium Chloride (NS 1000 ml Inj) 1,000 ml @ 999 mls/hr BOLUS ONCE IV ; Start 11/08/16 at 12:30; Stop 11/08/16 at 13:30; Status DC Hydrocortisone Sodium Succinate (SoluCORTEF INJ) 100 mg Q12HR IV PUSH ; Start at 13:00; Stop 11/08/16 at 14:32; Status DC Miscellaneous Information Patient in critical care unit? Ass... [id number] ; Start 11/08/16 at 13:15 Chlorhexidine Gluconate (Chlorhexidine 2% Cloth) 3 pack DAILY@04 TOP Last administered on 11/11/16 03:08; Start 11/09/16 at 04:00; Stop 11/13/16 at 04:01 Chlorhexidine Gluconate 3 pack 3 pack UNSCH PRN TOP HYGIENIC CARE; Start at 13:15; Stop 11/13/16 at 13:12 Levofloxacin/ Dextrose (Levaquin 750 Mg Premix Inj) 150 ml @ 100 mls/hr Q48H IV Last administered on 11/10/16 14:12; Start 11/08/16 at 14:00 Hydrocortisone Sodium Succinate (SoluCORTEF INJ) 100 mg Q8HR IV PUSH Last administered on 11/09/16 06:36; Start 11/08/16 at 22:00; Stop 11/09/16 at 12:36 ; Status DC Diatrizoate Meglum/ Diatrizoate Sod 18 ml 18 ml ONCE ONCE PO Last administered on 11/08/16 15:25; Start 11/08/16 at 15:00; Stop 11/08/16 at 15:01 ; Status DC Thiamine HCl 100 mg/Sodium Chloride 101 ml @ 101 mls/hr DAILY IV Last administered on 11/09/16 08:41; Start 11/09/16 at 09:00; Stop 11/09/16 at 12:36 ; Status DC Norepinephrine Bitartrate (Levophed-Dextrose Drip) 250 ml @ 0 mls/hr TITRATE IV ; Start 11/08/16 at 15:30; Stop 11/09/16 at 12:36; Status DC Terbutaline Sulfate (Brethine Inj) 1 mg UNSCH PRN SQ For Extravasation; Start 11/08/16 at 15:30 Iodixanol 46 ml 46 ml STK-MED ONCE IV Last administered on 11/08/16 18:41; Start 11/08/16 at 18:41; Stop 11/08/16 at 18:42; Status DC Vancomycin HCl/ Sodium Chloride (Vancomycin Inj/ NS 250 ml Inj) 250 ml @ 250 mls/hr Q24H IV Last administered on 11/09/16 16:02; Start 11/09/16 at 11:00; Stop 11/10/16 at 09:35; Status DC Miscellaneous Information SPECIFIC LAB TO BE DRAWN:VANCO TROUGH DATE TO BE DR... ONCE ONCE XX ; Start 11/11/16 at 15:45; Stop 11/11/16 at 15:46; Status Cancel Hydrocortisone Sodium Succinate (SoluCORTEF INJ) 50 mg Q6HR IV PUSH Last administered on 11/10/16 05:55; Start 11/09/16 at 18:00; Stop 11/10/16 at 08:29; Status DC Thiamine HCl (Vitamin B1) 100 mg DAILY PO Last administered on 11/11/16 08:25; Start 11/10/16 at 09:00 Multivitamins 1 tab 1 tab DAILY PO Last administered on 11/11/16 08:25; Start 11/09/16 at 12:30 Dextrose/Sodium Chloride (D5W-NS 1000 ml Inj) 1,000 ml @ 50 mls/hr Q20H IV Last administered on 11/10/16 18:30; Start 11/09/16 at 12:30; Status Hold Dextrose (D50w (Vial) Inj) 25 ml UNSCH PRN IV PUSH HYPOGLYCEMIA-SEE COMMENTS; Start 11/09/16 at 12:30 Glucagon (Glucagon Inj) 1 mg UNSCH PRN OTHER HYPOGLYCEMIA-SEE COMMENTS; Start 11/09/16 at 12:30 Insulin Human Regular 1 1 Q6H SQ ; Start 11/09/16 at 12:30 Calcium Gluconate/ Sodium Chloride (Calcium Gluconate Inj/NS Inj) 110 ml @ 110 mls/hr ONCE ONCE IV Last administered on 11/09/16 14:11; Start 11/09/16 at 14 :00; Stop 11/09/16 at 14:59; Status DC Bumetanide (Bumex Inj) 1 mg ONCE ONCE IV PUSH Last administered on 11/09/16 14:11; Start 11/09/16 at 12:45; Stop 11/09/16 at 12:46; Status DC Albumin Human (Albumin 5% Inj) 12.5 gm Q12H IV Last administered on 11/12/16 00 :49; Start 11/09/16 at 12:45 Lidocaine HCl (Xylocaine-Mpf 1% Inj) 30 ml STK-MED ONCE .ROUTE Last administered on 11/09/16 15:11; Start 11/09/16 at 15:11; Stop 11/09/16 at 15:12 ; Status DC Hydrocortisone Sodium Succinate (SoluCORTEF INJ) 50 mg Q8HR IV PUSH Last administered on 11/11/16 05:23; Start 11/10/16 at 14:00; Stop 11/11/16 at 10:34; Status DC Potassium Bicarb/ Potassium Chloride (K-Lyte Cl Eff) 25 meq ONCE ONCE PO Last administered on 11/10/16 08:52; Start 11/10/16 at 08:30; Stop 11/10/16 at 08: 34; Status DC Potassium Bicarb/ Potassium Chloride (K-Lyte Cl Eff) 25 meq ONCE ONCE PO Last administered on 11/10/16 12:47; Start 11/10/16 at 12:00; Stop 11/10/16 at 12: 01; Status DC Bumetanide 0.5 mg 0.5 mg ONCE ONCE IV PUSH Last administered on 11/10/16 08:30 ; Start 11/10/16 at 08:30; Stop 11/10/16 at 08:33; Status DC Vancomycin HCl/ Sodium Chloride (Vancomycin Inj/ NS 250 ml Inj) 250 ml @ 250 mls/hr Q24H IV Last administered on 11/10/16 19:07; Start 11/10/16 at 16:00; Stop 11/11/16 at 09:33; Status DC Hydrocortisone Sodium Succinate (SoluCORTEF INJ) 50 mg Q12HR IV PUSH Last administered on 11/11/16 21:32; Start 11/11/16 at 21:00 Potassium Bicarb/ Potassium Chloride (K-Lyte Cl Eff) 25 meq ONCE ONCE PO Last administered on 11/11/16 11:07; Start 11/11/16 at 11:00; Stop 11/11/16 at 11: 01; Status DC Potassium Bicarb/ Potassium Chloride 25 meq 25 meq ONCE ONCE PO Last administered on 11/11/16 14:26; Start 11/11/16 at 14:00; Stop 11/11/16 at 14:01; Status DC Potassium Chloride (KCl 20 Meq Premix Inj) 100 ml @ 50 mls/hr BOLUS ONCE IV Last administered on 11/11/16 11:08; Start 11/11/16 at 11:00; Stop 11/11/16 at 12: 59; Status DC Enalaprilat (Vasotec Inj) 1.25 mg Q8H PRN IV PUSH SBP> OR = 180, DBP> OR = 100 Last administered on 11/12/16 03:41; Start 11/11/16 at 14:00 A/P Assessment and Plan A/P Alcohol dependence -Watch for alcohol withdrawal, supplement Thiamine, MVI -As needed morphine for pain Respiratory insufficiency-improving Left lower lobe pneumonia COPD -Continue with oxygen keep sat >92% - continue neb treatment -continue Abx s/p Septic shock Lactic acidosis...trending down -stop Hydrocortisone -continue antibiotics Abdominal pain Probable acute cholecystitis Acute pancreatitis Liver cirrhosis Ascites, with possible hemorrhagic component -s/p paracentesis with removal of 1000 ml of fluid -fluid culture positive for klebsiella and enterococcus -continue protonix -Broad-spectrum antibiotics -will consult ID ( spoke with ) -start diuretics with close monitoring of renal function -will consider repeating paracentesis if abdominal distention gets worse. -general surgery and GI signed off. Acute kidney failure - improved -Monitor renal function, I/O's, electrolytes replacement per protocol. -Renal function fairly stable continue IV fluid and Albumin 12.5gms Q12 Anemia requiring transfusion Thrombocytopenia Coagulopathy -s/p transfusion 2u PRBC 11/08 -Monitor CBC, CMP, Coags hypokalemia -Electrolytes replacement as needed PROPH: -Bilateral lower extremity SCDs. Avoid chemical prophylaxis due to anemia, coagulopathy and thrombocytopenia Discharge Planning not ready for discharge yet. Nelson Shaver MD Nov 12, 2016 09:45
[2016-11-12] MEDS: THIAMINE HCL 100 MG TAB PO SCH (09:48)
[2016-11-12] MEDS: PROPRANOLOL HCL 20 MG TAB PO SCH ×2 (09:48→21:38)
[2016-11-12] MEDS: MULTIVITAMIN TAB PO SCH (09:48)
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
[2016-11-12] MEDS ORDERED: BUMETANIDE INJ 1 MG/4 ML VIAL IV PUSH ONE (10:30)
[2016-11-12] MEDS: DAPTOmycin INJ 300 MG in SODIUM CHLORIDE 0.9% INJ 100 ML IV SCH (12:36)
--- NOTE | 2016-11-12 12:54 | HHI.PR ---
Addendum To [facility] Progress Not Reason for addendum: Additonal documentation (spoke with radiology ; since there was considerable amount of blood during the last paracentesis, it would be menendez to avoid further attempts at this time.) Nelson Shaver MD Nov 12, 2016 12:54
[2016-11-12] MEDS: PIPERACIL-TAZO 3.375 GM PREMIX 50 ML IV SCH ×2 (17:39→21:57)
[2016-11-12] MEDS: PANTOPRAZOLE SOD 40 MG DELAYED RELEASE TAB PO SCH (21:38)
[2016-11-13] VITALS (7 sets, daily range): BP systolic 104–176; BP diastolic 61–79; PULSE 70–80; RESP 18–24; TEMP 96.2–98.5; O2SAT 91–95
[2016-11-13] MEDS: INSULIN NovoLIN REGULAR SUPPLEMENTAL SCALE SQ SCH ×4 (00:30→18:30)
[2016-11-13] MEDS: ALBUMIN HUMAN 5% 12.5 GM/250 ML BOTTLE IV SCH (01:18)
[2016-11-13] MEDS: MORPHINE SULFATE 4 MG/ML INJ IV PRN ×3 (01:18→07:48)
[2016-11-13] MEDS: SODIUM CHLORIDE 0.9% FLUSH 5 ML FLUSH FLUSH PRN ×3 (01:19→10:46)
[2016-11-13] MEDS: ONDANSETRON HCL 4 MG/2 ML VIAL IVP PRN (03:44)
[2016-11-13] MEDS: PIPERACIL-TAZO 3.375 GM PREMIX 50 ML IV SCH ×4 (03:45→20:52)
[2016-11-13] MEDS: CHLORHEXIDINE GLUCONATE 2 % 1 PACK (2 CLOTHS)(taper/protocol) TOP SCH (03:46)
[2016-11-13] MEDS: PANTOPRAZOLE SOD 40 MG DELAYED RELEASE TAB PO SCH ×2 (09:11→20:57)
[2016-11-13] MEDS: PROPRANOLOL HCL 20 MG TAB PO SCH ×2 (09:11→20:52)
[2016-11-13] MEDS: SPIRONOLACTONE 25 MG TAB PO SCH (09:11)
[2016-11-13] MEDS: FUROSEMIDE 40 MG TAB PO SCH (09:12)
[2016-11-13] MEDS: MULTIVITAMIN TAB PO SCH (09:12)
[2016-11-13] MEDS: SODIUM CHLORIDE 0.9% FLUSH 5 ML FLUSH FLUSH SCH ×2 (09:12→20:56)
[2016-11-13] MEDS: THIAMINE HCL 100 MG TAB PO SCH (09:12)
--- NOTE | 2016-11-13 09:44 | HHI.PR ---
Subjective Remarks ill looking but in no acute distress. had some on and off nausea but with no emesis. complaining of lower abdominal pain. complaining of anxiety. Objective Vitals Vital Signs Date Time Temp Pulse Resp B/P Pulse Ox O2 Delivery O2 Flow Rate FiO2 11/13/16 08:00 97.8 78 20 104/61 94 11/13/16 04:00 98.0 75 24 165/79 92 11/13/16 00:00 98.5 80 20 176/72 93 11/12/16 20:00 98.2 80 20 148/81 93 11/12/16 17:36 94 Nasal Cannula 3.00 11/12/16 16:00 97.8 73 18 167/85 94 11/12/16 12:00 98.0 67 18 189/93 94 11/12/16 10:20 97 Nasal Cannula 3.00 I/O 11/12/16 11/12/16 11/12/16 11/13/16 11/13/16 11/13/16 07:00 15:00 23:00 07:00 15:00 23:00 Intake Total 240 ml 97 ml 120 ml 0 ml Output Total 100 ml 425 ml 75 ml 75 ml Balance 140 ml -328 ml 45 ml -75 ml Intake Oral 240 ml 0 ml 120 ml 0 ml IV Total 97 ml Output Urine Total 100 ml 425 ml 75 ml 75 ml # Voids 1 # Bowel Movements 0 0 0 Result Diagram: 11/11/16 0811/13/16 0556 Imaging Last Impressions Cyst Biopsy Asp-Paracentesis US 11/09/16 0000 Signed Impressions: Service Date/Time: Wednesday, November 09, 2016 09:26 - CONCLUSION: Uncomplicated ultrasound guided paracentesis. Ha Carey MD Lower Extremity Ultrasound 11/08/16 0000 Signed Impressions: Service Date/Time: Tuesday, November 08, 2016 13:59 - CONCLUSION: Negative for deep venous thrombosis.. Ramos Lo MD FACR Chest X-Ray 11/08/16 0000 Signed Impressions: Service Date/Time: Tuesday, November 08, 2016 04:27 - CONCLUSION: 1. Subsegmental basal airspace disease, slightly increased on the left since November 07. Hua Pennington MD Abdomen/Pelvis CT 11/08/16 0000 Signed Impressions: Service Date/Time: Tuesday, November 08, 2016 18:35 - CONCLUSION: Increasing ascites and developing anasarca. No other significant change. Edis Plascencia MD Gall Bladder Ultrasound 11/07/16 0000 Signed Impressions: Service Date/Time: Monday, November 07, 2016 09:48 - CONCLUSION: 1. Wall thickening and pericholecystic fluid of the gallbladder and differential includes secondary changes from chronic liver disease and acute cholecystitis. Equivocal sonographic Myles sign as the patient complains of pain during the entire scan. Sludge is in the gallbladder. 2. Ascites present and containing floating debris. The ascites is of heterogeneous attenuation on yesterday's CT suggesting there may be a recently hemorrhagic component. 3. 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 Tony Hdez MD Objective Remarks GENERAL: ill looking but in no apparent distress. CARDIOVASCULAR: Regular rate and irregular rhythm without murmurs, gallops, or rubs. RESPIRATORY: Clear to auscultation. Breath sounds equal bilaterally. No wheezes , rales, or rhonchi. GASTROINTESTINAL: Abdomen soft, non-tender, distended. Normal, active bowel sounds MUSCULOSKELETAL: Extremities without clubbing, cyanosis, or edema. NEURO: Alert & Oriented x4 to person, place, time, situation. Moves all ext x4 Procedures paracentesis Medications and IVs Current Medications Morphine Sulfate (Morphine Inj) 4 mg ONCE ONCE IV PUSH Last administered on 19:47; Start 11/06/16 at 19:30; Stop 11/06/16 at 19:31; Status DC Ondansetron HCl 4 mg 4 mg ONCE ONCE IVP Last administered on 11/06/16 19:47; Start 11/06/16 at 19:30; Stop 11/06/16 at 19:31; Status DC Sodium Chloride (NS 1000 ml Inj) 1,000 ml @ 1,000 mls/hr Q1H IV Last administered on 11/06/16 19:47; Start 11/06/16 at 19:28; Stop 11/06/16 at 20:27 ; Status DC IV Flush (NS Flush) 2 ml UNSCH PRN IVF FLUSH AFTER USING IV ACCESS; Start 11/06 at 19:30; Stop 11/06/16 at 21:17; Status DC Famotidine (Pepcid Inj) 20 mg ONCE ONCE IV PUSH Last administered on 19:47; Start 11/06/16 at 19:30; Stop 11/06/16 at 19:31; Status DC Iohexol (Omnipaque 350 Inj) 88 ml STK-MED ONCE IV Last administered on 20:54; Start 11/06/16 at 20:54; Stop 11/06/16 at 20:55; Status DC Morphine Sulfate (Morphine Inj) 4 mg ONCE ONCE IV PUSH Last administered on 22:48; Start 11/06/16 at 21:15; Stop 11/06/16 at 21:16; Status DC Pantoprazole Sodium 40 mg 40 mg Q12H IV PUSH Last administered on 11/11/16 21: 32; Start 11/07/16 at 09:00; Stop 11/12/16 at 09:41; Status DC Sodium Chloride (NS 1000 ml Inj) 1,000 ml @ 125 mls/hr Q8H IV Last administered on 11/08/16 08:49; Start 11/06/16 at 22:00; Stop 11/08/16 at 10:55 ; Status DC IV Flush (NS Flush) 2 ml UNSCH PRN FLUSH FLUSH AFTER USING IV ACCESS Last administered on 11/13/16 03:44; Start 11/06/16 at 21:15 IV Flush (NS Flush) 2 ml BID FLUSH Last administered on 11/13/16 09:12; Start 11/07/16 at 09:00 Ondansetron HCl (Zofran Inj) 4 mg Q6H PRN IVP NAUSEA OR VOMITING Last administered on 11/13/16 03:44; Start 11/06/16 at 21:15 Bisacodyl (Dulcolax Supp) 10 mg DAILY PRN MA CONSTIPATION Last administered on 11/11/16 22:44; Start 11/06/16 at 21:15 Acetaminophen (Tylenol) 650 mg Q6H PRN PO FEVER; Start 11/06/16 at 21:15 Morphine Sulfate (Morphine Inj) 2 mg Q3H PRN IV Pain 6-10 Last administered on 11/13/16 07:48; Start 11/06/16 at 21:15 Oxycodone HCl (Roxicodone) 5 mg Q4H PRN PO PAIN SCALE 3 TO 5 Last administered on 11/10/16 14:13; Start 11/06/16 at 21:15 Gabapentin (Neurontin) 300 mg TID PO Last administered on 11/08/16 12:01; Start 11/07/16 at 09:00; Status Hold Propranolol HCl (Inderal) 20 mg BID PO Last administered on 11/13/16 09:11; Start 11/07/16 at 09:00 Spironolactone (Aldactone) 25 mg DAILY PO Last administered on 11/07/16 07:45 ; Start 11/07/16 at 09:00; Stop 11/12/16 at 09:41; Status DC Trazodone HCl (Desyrel) 50 mg HS PO Last administered on 11/07/16 22:16; Start 11/07/16 at 21:00; Status Hold Morphine Sulfate 4 mg 4 mg ONCE ONCE IV PUSH Last administered on 11/07/16 09 :55; Start 11/07/16 at 09:30; Stop 11/07/16 at 09:31; Status DC Piperacillin Sod/ Tazobactam Sod (Zosyn 4.5 Gm Premix) 100 ml @ 200 mls/hr Q8H IV Last administered on 11/12/16 03:40; Start 11/07/16 at 12:00; Stop 11/12/16 at 10:18; Status DC Albuterol/ Ipratropium (Duoneb Neb) 1 ampule Q2HR NEB PRN NEB shortness of breath/wheezing; Start 11/07/16 at 23:30 Albuterol/ Ipratropium 1 ampule 1 ampule Q6HR NEB NEB Last administered on 11/11 15:37; Start 11/07/16 at 23:30; Stop 11/11/16 at 23:30; Status DC Vancomycin HCl 1200 mg/Sodium Chloride 262 ml @ 250 mls/hr ONCE ONCE IV Last administered on 11/08/16 00:34; Start 11/08/16 at 00:00; Stop 11/08/16 at 01:02 ; Status DC Pharmacy Profile Note (Vancomycin Consult Pharmacy) 0 ml @ 0 mls/hr UNSCH OTHER ; Start 11/07/16 at 23:45; Stop 11/08/16 at 12:45; Status DC Guaifenesin (Mucinex Er) 600 mg BID PO Last administered on 11/08/16 08:46; Start 11/07/16 at 23:45; Status Hold Furosemide (Lasix Inj) 20 mg ONCE ONCE IV PUSH Last administered on 11/08/16 04:00; Start 11/08/16 at 04:00; Stop 11/08/16 at 04:01; Status DC Dextrose 25 ml 25 ml ONCE ONCE IV Last administered on 11/08/16 07:24; Start 11/08/16 at 07:00; Stop 11/08/16 at 07:06; Status DC Sodium Chloride 1,000 ml @ 999 mls/hr BOLUS ONCE IV Last administered on 11/08 07:25; Start 11/08/16 at 07:15; Stop 11/08/16 at 08:15; Status DC Dextrose/Sodium Chloride 1,000 ml @ 84 mls/hr [id number] IV Last administered on 11/08/16 08:48; Start 11/08/16 at 07:30; Stop 11/08/16 at 10:10; Status DC Vancomycin HCl 1000 mg/Sodium Chloride 250 ml @ 250 mls/hr ONCE ONCE IV ; Start 11/08/16 at 10:15; Stop 11/08/16 at 11:14; Status UNV Pharmacy Profile Note 0 ml @ 0 mls/hr UNSCH OTHER ; Start 11/08/16 at 10:15; Stop 11/11/16 at 09:33; Status DC Sodium Chloride (NS 1000 ml Inj) 1,000 ml @ 999 mls/hr BOLUS ONCE IV Last administered on 11/08/16 11:01; Start 11/08/16 at 10:15; Stop 11/08/16 at 11:15 ; Status DC Thiamine HCl 100 mg 100 mg ONCE ONCE IM Last administered on 11/08/16 12:32; Start 11/08/16 at 10:15; Stop 11/08/16 at 10:17; Status DC Sodium Chloride 1,000 ml @ 999 mls/hr BOLUS ONCE IV ; Start 11/08/16 at 10:15 ; Stop 11/08/16 at 10:18; Status DC Sodium Chloride 1,000 ml @ 150 mls/hr Q6H40M IV Last administered on 2/28/ 17at 12:10; Start 11/08/16 at 10:15; Stop 11/09/16 at 12:36; Status DC Sodium Chloride 250 ml @ 15 mls/hr ONCE ONCE IV ; Start 11/08/16 at 10:15; Stop 11/09/16 at 02:54; Status DC Sodium Chloride (NS 1000 ml Inj) 1,000 ml @ 999 mls/hr BOLUS ONCE IV ; Start 11/08/16 at 12:30; Stop 11/08/16 at 13:30; Status DC Hydrocortisone Sodium Succinate (SoluCORTEF INJ) 100 mg Q12HR IV PUSH ; Start at 13:00; Stop 11/08/16 at 14:32; Status DC Miscellaneous Information Patient in critical care unit? Ass... [id number] ; Start 11/08/16 at 13:15 Chlorhexidine Gluconate (Chlorhexidine 2% Cloth) 3 pack DAILY@04 TOP Last administered on 11/11/16 03:08; Start 11/09/16 at 04:00; Stop 11/13/16 at 04:01; Status DC Chlorhexidine Gluconate 3 pack 3 pack UNSCH PRN TOP HYGIENIC CARE; Start at 13:15; Stop 11/13/16 at 13:12 Levofloxacin/ Dextrose (Levaquin 750 Mg Premix Inj) 150 ml @ 100 mls/hr Q48H IV Last administered on 11/10/16 14:12; Start 11/08/16 at 14:00; Stop 11/12/16 at 10:18; Status DC Hydrocortisone Sodium Succinate (SoluCORTEF INJ) 100 mg Q8HR IV PUSH Last administered on 11/09/16 06:36; Start 11/08/16 at 22:00; Stop 11/09/16 at 12:36 ; Status DC Diatrizoate Meglum/ Diatrizoate Sod 18 ml 18 ml ONCE ONCE PO Last administered on 11/08/16 15:25; Start 11/08/16 at 15:00; Stop 11/08/16 at 15:01 ; Status DC Thiamine HCl 100 mg/Sodium Chloride 101 ml @ 101 mls/hr DAILY IV Last administered on 11/09/16 08:41; Start 11/09/16 at 09:00; Stop 11/09/16 at 12:36 ; Status DC Norepinephrine Bitartrate (Levophed-Dextrose Drip) 250 ml @ 0 mls/hr TITRATE IV ; Start 11/08/16 at 15:30; Stop 11/09/16 at 12:36; Status DC Terbutaline Sulfate (Brethine Inj) 1 mg UNSCH PRN SQ For Extravasation; Start 11/08/16 at 15:30 Iodixanol 46 ml 46 ml STK-MED ONCE IV Last administered on 11/08/16 18:41; Start 11/08/16 at 18:41; Stop 11/08/16 at 18:42; Status DC Vancomycin HCl/ Sodium Chloride (Vancomycin Inj/ NS 250 ml Inj) 250 ml @ 250 mls/hr Q24H IV Last administered on 11/09/16 16:02; Start 11/09/16 at 11:00; Stop 11/10/16 at 09:35; Status DC Miscellaneous Information SPECIFIC LAB TO BE DRAWN:VANCO TROUGH DATE TO BE DR... ONCE ONCE XX ; Start 11/11/16 at 15:45; Stop 11/11/16 at 15:46; Status Cancel Hydrocortisone Sodium Succinate (SoluCORTEF INJ) 50 mg Q6HR IV PUSH Last administered on 11/10/16 05:55; Start 11/09/16 at 18:00; Stop 11/10/16 at 08:29; Status DC Thiamine HCl (Vitamin B1) 100 mg DAILY PO Last administered on 11/13/16 09:12; Start 11/10/16 at 09:00 Multivitamins 1 tab 1 tab DAILY PO Last administered on 11/13/16 09:12; Start 11/09/16 at 12:30 Dextrose/Sodium Chloride (D5W-NS 1000 ml Inj) 1,000 ml @ 50 mls/hr Q20H IV Last administered on 11/10/16 18:30; Start 11/09/16 at 12:30; Status Hold Dextrose (D50w (Vial) Inj) 25 ml UNSCH PRN IV PUSH HYPOGLYCEMIA-SEE COMMENTS; Start 11/09/16 at 12:30 Glucagon (Glucagon Inj) 1 mg UNSCH PRN OTHER HYPOGLYCEMIA-SEE COMMENTS; Start 11/09/16 at 12:30 Insulin Human Regular 1 1 Q6H SQ ; Start 11/09/16 at 12:30 Calcium Gluconate/ Sodium Chloride (Calcium Gluconate Inj/NS Inj) 110 ml @ 110 mls/hr ONCE ONCE IV Last administered on 11/09/16 14:11; Start 11/09/16 at 14 :00; Stop 11/09/16 at 14:59; Status DC Bumetanide (Bumex Inj) 1 mg ONCE ONCE IV PUSH Last administered on 11/09/16 14:11; Start 11/09/16 at 12:45; Stop 11/09/16 at 12:46; Status DC Albumin Human (Albumin 5% Inj) 12.5 gm Q12H IV Last administered on 11/13/16 01 :18; Start 11/09/16 at 12:45 Lidocaine HCl (Xylocaine-Mpf 1% Inj) 30 ml STK-MED ONCE .ROUTE Last administered on 11/09/16 15:11; Start 11/09/16 at 15:11; Stop 11/09/16 at 15:12 ; Status DC Hydrocortisone Sodium Succinate (SoluCORTEF INJ) 50 mg Q8HR IV PUSH Last administered on 11/11/16 05:23; Start 11/10/16 at 14:00; Stop 11/11/16 at 10:34; Status DC Potassium Bicarb/ Potassium Chloride (K-Lyte Cl Eff) 25 meq ONCE ONCE PO Last administered on 11/10/16 08:52; Start 11/10/16 at 08:30; Stop 11/10/16 at 08: 34; Status DC Potassium Bicarb/ Potassium Chloride (K-Lyte Cl Eff) 25 meq ONCE ONCE PO Last administered on 11/10/16 12:47; Start 11/10/16 at 12:00; Stop 11/10/16 at 12: 01; Status DC Bumetanide 0.5 mg 0.5 mg ONCE ONCE IV PUSH Last administered on 11/10/16 08:30 ; Start 11/10/16 at 08:30; Stop 11/10/16 at 08:33; Status DC Vancomycin HCl/ Sodium Chloride (Vancomycin Inj/ NS 250 ml Inj) 250 ml @ 250 mls/hr Q24H IV Last administered on 11/10/16 19:07; Start 11/10/16 at 16:00; Stop 11/11/16 at 09:33; Status DC Hydrocortisone Sodium Succinate (SoluCORTEF INJ) 50 mg Q12HR IV PUSH Last administered on 11/11/16 21:32; Start 11/11/16 at 21:00; Stop 11/12/16 at 09:40; Status DC Potassium Bicarb/ Potassium Chloride (K-Lyte Cl Eff) 25 meq ONCE ONCE PO Last administered on 11/11/16 11:07; Start 11/11/16 at 11:00; Stop 11/11/16 at 11: 01; Status DC Potassium Bicarb/ Potassium Chloride 25 meq 25 meq ONCE ONCE PO Last administered on 11/11/16 14:26; Start 11/11/16 at 14:00; Stop 11/11/16 at 14:01; Status DC Potassium Chloride (KCl 20 Meq Premix Inj) 100 ml @ 50 mls/hr BOLUS ONCE IV Last administered on 11/11/16 11:08; Start 11/11/16 at 11:00; Stop 11/11/16 at 12: 59; Status DC Enalaprilat (Vasotec Inj) 1.25 mg Q8H PRN IV PUSH SBP> OR = 180, DBP> OR = 100 Last administered on 11/12/16 03:41; Start 11/11/16 at 14:00 Furosemide (Lasix) 40 mg DAILY PO ; Start 11/12/16 at 09:45; Stop 11/12/16 at 09: 47; Status DC Spironolactone (Aldactone) 25 mg DAILY PO Last administered on 11/13/16 09:11; Start 11/13/16 at 09:00 Potassium Chloride (KCl) 40 meq ONCE ONCE PO Last administered on 11/12/16 10: 07; Start 11/12/16 at 09:45; Stop 11/12/16 at 09:46; Status DC Potassium Chloride (KCl) 30 meq ONCE ONCE PO Last administered on 11/12/16 15: 09; Start 11/12/16 at 14:00; Stop 11/12/16 at 14:01; Status DC Pantoprazole Sodium (Protonix) 40 mg Q12HR PO Last administered on 11/13/16 09: 11; Start 11/12/16 at 21:00 Furosemide (Lasix) 40 mg DAILY PO Last administered on 11/13/16 09:12; Start at 09:00 Bumetanide 0.5 mg 0.5 mg ONCE ONCE IV PUSH Last administered on 11/12/16 10:09 ; Start 11/12/16 at 10:30; Stop 11/12/16 at 10:31; Status DC Piperacillin Sod/ Tazobactam Sod 50 ml @ 200 mls/hr Q6H IV Last administered on 11/13/16 09:11; Start 11/12/16 at 16:00 Daptomycin/Sodium Chloride (Cubicin Inj/NS Inj) 100 ml @ 200 mls/hr Q24H IV Last administered on 11/12/16 12:36; Start 11/12/16 at 12:00 A/P Assessment and Plan A/P Alcohol dependence -Watch for alcohol withdrawal, supplement Thiamine, MVI -As needed morphine for pain Respiratory insufficiency-improving Left lower lobe pneumonia COPD -Continue with oxygen keep sat >92% - continue neb treatment -continue Abx s/p Septic shock -stopped Hydrocortisone -continue antibiotics Abdominal pain Probable acute cholecystitis Acute pancreatitis Liver cirrhosis Ascites, with possible hemorrhagic component -s/p paracentesis with removal of 1000 ml of fluid -fluid culture positive for klebsiella and enterococcus -continue protonix -Broad-spectrum antibiotics; on Zosyn and Cubicin-per ID -continue diuretics with close monitoring of renal function -general surgery and GI signed off. Acute kidney failure - improved -Monitor renal function, I/O's, electrolytes replacement per protocol. -Renal function fairly stable Anemia requiring transfusion Thrombocytopenia Coagulopathy -s/p transfusion 2u PRBC 11/08 -Monitor CBC, CMP, Coags hypokalemia -Electrolytes replacement as needed PROPH: -Bilateral lower extremity SCDs. Avoid chemical prophylaxis due to anemia, coagulopathy and thrombocytopenia code status was d/w the patient; she wants to talk to her family first. will consider palliative care consult and this was d/w the patient. Discharge Planning not ready for discharge yet. Nelson Shaver MD Nov 13, 2016 09:44
[2016-11-13] MEDS: HYDROmorphone HCL PF 1 MG/ML VIAL IV PUSH PRN ×4 (10:45→20:57)
[2016-11-13] MEDS ORDERED: PILL SPLITTER OTHER PRN (11:00)
[2016-11-13] MEDS: DAPTOmycin INJ 300 MG in SODIUM CHLORIDE 0.9% INJ 100 ML IV SCH (12:24)
[2016-11-14] VITALS (8 sets, daily range): BP systolic 57–118; BP diastolic 40–73; PULSE 68–76; RESP 18–24; TEMP 97.3–98.4; O2SAT 82–96
[2016-11-14] MEDS: INSULIN NovoLIN REGULAR SUPPLEMENTAL SCALE SQ SCH ×2 (00:01→06:06)
[2016-11-14] MEDS: HYDROmorphone HCL PF 1 MG/ML VIAL IV PUSH PRN ×5 (00:02→18:36)
[2016-11-14] MEDS: PIPERACIL-TAZO 3.375 GM PREMIX 50 ML IV SCH ×4 (04:48→21:17)
[2016-11-14] MEDS: SPIRONOLACTONE 25 MG TAB PO SCH (07:56)
[2016-11-14] MEDS: PANTOPRAZOLE SOD 40 MG DELAYED RELEASE TAB PO SCH ×2 (07:56→21:17)
[2016-11-14] MEDS: THIAMINE HCL 100 MG TAB PO SCH (07:56)
[2016-11-14] MEDS: PROPRANOLOL HCL 20 MG TAB PO SCH ×2 (07:56→21:00)
[2016-11-14] MEDS: MULTIVITAMIN TAB PO SCH (07:56)
[2016-11-14] MEDS: FUROSEMIDE 40 MG TAB PO SCH (07:56)
[2016-11-14] MEDS: SODIUM CHLORIDE 0.9% FLUSH 5 ML FLUSH FLUSH SCH ×2 (07:56→20:59)
--- NOTE | 2016-11-14 10:26 | HHI.PR ---
Subjective Remarks ill looking but in no acute distress. sounds congested with some sob. complaining of abdominal pain. noted that her blood sugar was low earlier. not as alert as yesterday. Objective Vitals Vital Signs Date Time Temp Pulse Resp B/P Pulse Ox O2 Delivery O2 Flow Rate FiO2 11/14/16 08:10 Nasal Cannula 2.00 11/14/16 08:00 97.4 69 20 97/60 93 Automatic Cuff 11/14/16 04:09 97.4 68 18 114/60 96 11/14/16 00:00 98.4 70 19 109/61 95 11/13/16 20:32 97.7 75 18 111/68 95 11/13/16 20:00 71 11/13/16 16:00 96.2 70 20 115/68 91 11/13/16 12:00 98.0 75 20 165/79 95 I/O 11/13/16 11/13/16 11/13/16 11/14/16 11/14/16 11/14/16 07:00 15:00 23:00 07:00 15:00 23:00 Intake Total 0 ml 480 ml 600 ml Output Total 75 ml 0 ml Balance -75 ml 480 ml 600 ml Intake Oral 0 ml 480 ml 600 ml Output Urine Total 75 ml 0 ml # Voids 1 2 2 # Bowel Movements 0 0 0 Result Diagram: 11/11/16 0811/13/16 0556 Imaging Last Impressions Cyst Biopsy Asp-Paracentesis US 11/09/16 0000 Signed Impressions: Service Date/Time: Wednesday, November 09, 2016 09:26 - CONCLUSION: Uncomplicated ultrasound guided paracentesis. Ha Carey MD Lower Extremity Ultrasound 11/08/16 0000 Signed Impressions: Service Date/Time: Tuesday, November 08, 2016 13:59 - CONCLUSION: Negative for deep venous thrombosis.. Ramos Lo MD FACR Chest X-Ray 11/08/16 0000 Signed Impressions: Service Date/Time: Tuesday, November 08, 2016 04:27 - CONCLUSION: 1. Subsegmental basal airspace disease, slightly increased on the left since November 07. Hua Pennington MD Abdomen/Pelvis CT 11/08/16 0000 Signed Impressions: Service Date/Time: Tuesday, November 08, 2016 18:35 - CONCLUSION: Increasing ascites and developing anasarca. No other significant change. Edis Plascencia MD Gall Bladder Ultrasound 11/07/16 0000 Signed Impressions: Service Date/Time: Monday, November 07, 2016 09:48 - CONCLUSION: 1. Wall thickening and pericholecystic fluid of the gallbladder and differential includes secondary changes from chronic liver disease and acute cholecystitis. Equivocal sonographic Myles sign as the patient complains of pain during the entire scan. Sludge is in the gallbladder. 2. Ascites present and containing floating debris. The ascites is of heterogeneous attenuation on yesterday's CT suggesting there may be a recently hemorrhagic component. 3. 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 Tony Hdez MD Objective Remarks GENERAL: ill looking but in no apparent distress. CARDIOVASCULAR: Regular rate and irregular rhythm without murmurs, gallops, or rubs. RESPIRATORY: bilateral crackles GASTROINTESTINAL: Abdomen soft, non-tender, distended. Normal, active bowel sounds MUSCULOSKELETAL: Extremities without clubbing, cyanosis, or edema. NEURO: Alert & Oriented x4 to person, place, time, situation. Moves all ext x4 Procedures paracentesis Medications and IVs Current Medications Morphine Sulfate (Morphine Inj) 4 mg ONCE ONCE IV PUSH Last administered on 19:47; Start 11/06/16 at 19:30; Stop 11/06/16 at 19:31; Status DC Ondansetron HCl 4 mg 4 mg ONCE ONCE IVP Last administered on 11/06/16 19:47; Start 11/06/16 at 19:30; Stop 11/06/16 at 19:31; Status DC Sodium Chloride (NS 1000 ml Inj) 1,000 ml @ 1,000 mls/hr Q1H IV Last administered on 11/06/16 19:47; Start 11/06/16 at 19:28; Stop 11/06/16 at 20:27 ; Status DC IV Flush (NS Flush) 2 ml UNSCH PRN IVF FLUSH AFTER USING IV ACCESS; Start 11/06 at 19:30; Stop 11/06/16 at 21:17; Status DC Famotidine (Pepcid Inj) 20 mg ONCE ONCE IV PUSH Last administered on 19:47; Start 11/06/16 at 19:30; Stop 11/06/16 at 19:31; Status DC Iohexol (Omnipaque 350 Inj) 88 ml STK-MED ONCE IV Last administered on 20:54; Start 11/06/16 at 20:54; Stop 11/06/16 at 20:55; Status DC Morphine Sulfate (Morphine Inj) 4 mg ONCE ONCE IV PUSH Last administered on 22:48; Start 11/06/16 at 21:15; Stop 11/06/16 at 21:16; Status DC Pantoprazole Sodium 40 mg 40 mg Q12H IV PUSH Last administered on 11/11/16 21: 32; Start 11/07/16 at 09:00; Stop 11/12/16 at 09:41; Status DC Sodium Chloride (NS 1000 ml Inj) 1,000 ml @ 125 mls/hr Q8H IV Last administered on 11/08/16 08:49; Start 11/06/16 at 22:00; Stop 11/08/16 at 10:55 ; Status DC IV Flush (NS Flush) 2 ml UNSCH PRN FLUSH FLUSH AFTER USING IV ACCESS Last administered on 11/13/16 10:46; Start 11/06/16 at 21:15 IV Flush (NS Flush) 2 ml BID FLUSH Last administered on 11/14/16 07:56; Start 11/07/16 at 09:00 Ondansetron HCl (Zofran Inj) 4 mg Q6H PRN IVP NAUSEA OR VOMITING Last administered on 11/13/16 03:44; Start 11/06/16 at 21:15 Bisacodyl (Dulcolax Supp) 10 mg DAILY PRN [place] CONSTIPATION Last administered on 11/11/16 22:44; Start 11/06/16 at 21:15 Acetaminophen (Tylenol) 650 mg Q6H PRN PO FEVER; Start 11/06/16 at 21:15 Morphine Sulfate (Morphine Inj) 2 mg Q3H PRN IV Pain 6-10 Last administered on 11/13/16 07:48; Start 11/06/16 at 21:15; Stop 11/13/16 at 09:40; Status DC Oxycodone HCl (Roxicodone) 5 mg Q4H PRN PO PAIN SCALE 3 TO 5 Last administered on 11/10/16 14:13; Start 11/06/16 at 21:15 Gabapentin (Neurontin) 300 mg TID PO Last administered on 11/08/16 12:01; Start 11/07/16 at 09:00; Status Hold Propranolol HCl (Inderal) 20 mg BID PO Last administered on 11/14/16 07:56; Start 11/07/16 at 09:00 Spironolactone (Aldactone) 25 mg DAILY PO Last administered on 11/07/16 07:45 ; Start 11/07/16 at 09:00; Stop 11/12/16 at 09:41; Status DC Trazodone HCl (Desyrel) 50 mg HS PO Last administered on 11/07/16 22:16; Start 11/07/16 at 21:00; Status Hold Morphine Sulfate 4 mg 4 mg ONCE ONCE IV PUSH Last administered on 11/07/16 09 :55; Start 11/07/16 at 09:30; Stop 11/07/16 at 09:31; Status DC Piperacillin Sod/ Tazobactam Sod (Zosyn 4.5 Gm Premix) 100 ml @ 200 mls/hr Q8H IV Last administered on 11/12/16 03:40; Start 11/07/16 at 12:00; Stop 11/12/16 at 10:18; Status DC Albuterol/ Ipratropium (Duoneb Neb) 1 ampule Q2HR NEB PRN NEB shortness of breath/wheezing; Start 11/07/16 at 23:30 Albuterol/ Ipratropium 1 ampule 1 ampule Q6HR NEB NEB Last administered on 11/11 15:37; Start 11/07/16 at 23:30; Stop 11/11/16 at 23:30; Status DC Vancomycin HCl 1200 mg/Sodium Chloride 262 ml @ 250 mls/hr ONCE ONCE IV Last administered on 11/08/16 00:34; Start 11/08/16 at 00:00; Stop 11/08/16 at 01:02 ; Status DC Pharmacy Profile Note (Vancomycin Consult Pharmacy) 0 ml @ 0 mls/hr UNSCH OTHER ; Start 11/07/16 at 23:45; Stop 11/08/16 at 12:45; Status DC Guaifenesin (Mucinex Er) 600 mg BID PO Last administered on 11/08/16 08:46; Start 11/07/16 at 23:45; Status Hold Furosemide (Lasix Inj) 20 mg ONCE ONCE IV PUSH Last administered on 11/08/16 04:00; Start 11/08/16 at 04:00; Stop 11/08/16 at 04:01; Status DC Dextrose 25 ml 25 ml ONCE ONCE IV Last administered on 11/08/16 07:24; Start 11/08/16 at 07:00; Stop 11/08/16 at 07:06; Status DC Sodium Chloride 1,000 ml @ 999 mls/hr BOLUS ONCE IV Last administered on 11/08 07:25; Start 11/08/16 at 07:15; Stop 11/08/16 at 08:15; Status DC Dextrose/Sodium Chloride 1,000 ml @ 84 mls/hr [id number] IV Last administered on 11/08/16 08:48; Start 11/08/16 at 07:30; Stop 11/08/16 at 10:10; Status DC Vancomycin HCl 1000 mg/Sodium Chloride 250 ml @ 250 mls/hr ONCE ONCE IV ; Start 11/08/16 at 10:15; Stop 11/08/16 at 11:14; Status UNV Pharmacy Profile Note 0 ml @ 0 mls/hr UNSCH OTHER ; Start 11/08/16 at 10:15; Stop 11/11/16 at 09:33; Status DC Sodium Chloride (NS 1000 ml Inj) 1,000 ml @ 999 mls/hr BOLUS ONCE IV Last administered on 11/08/16 11:01; Start 11/08/16 at 10:15; Stop 11/08/16 at 11:15 ; Status DC Thiamine HCl 100 mg 100 mg ONCE ONCE IM Last administered on 11/08/16 12:32; Start 11/08/16 at 10:15; Stop 11/08/16 at 10:17; Status DC Sodium Chloride 1,000 ml @ 999 mls/hr BOLUS ONCE IV ; Start 11/08/16 at 10:15 ; Stop 11/08/16 at 10:18; Status DC Sodium Chloride 1,000 ml @ 150 mls/hr Q6H40M IV Last administered on 12:10; Start 11/08/16 at 10:15; Stop 11/09/16 at 12:36; Status DC Sodium Chloride 250 ml @ 15 mls/hr ONCE ONCE IV ; Start 11/08/16 at 10:15; Stop 11/09/16 at 02:54; Status DC Sodium Chloride (NS 1000 ml Inj) 1,000 ml @ 999 mls/hr BOLUS ONCE IV ; Start 11/08/16 at 12:30; Stop 11/08/16 at 13:30; Status DC Hydrocortisone Sodium Succinate (SoluCORTEF INJ) 100 mg Q12HR IV PUSH ; Start at 13:00; Stop 11/08/16 at 14:32; Status DC Miscellaneous Information Patient in critical care unit? Ass... [id number] ; Start 11/08/16 at 13:15 Chlorhexidine Gluconate (Chlorhexidine 2% Cloth) 3 pack DAILY@04 TOP Last administered on 11/11/16 03:08; Start 11/09/16 at 04:00; Stop 11/13/16 at 04:01; Status DC Chlorhexidine Gluconate 3 pack 3 pack UNSCH PRN TOP HYGIENIC CARE; Start at 13:15; Stop 11/13/16 at 13:12; Status DC Levofloxacin/ Dextrose (Levaquin 750 Mg Premix Inj) 150 ml @ 100 mls/hr Q48H IV Last administered on 11/10/16 14:12; Start 11/08/16 at 14:00; Stop 11/12/16 at 10:18; Status DC Hydrocortisone Sodium Succinate (SoluCORTEF INJ) 100 mg Q8HR IV PUSH Last administered on 11/09/16 06:36; Start 11/08/16 at 22:00; Stop 11/09/16 at 12:36 ; Status DC Diatrizoate Meglum/ Diatrizoate Sod 18 ml 18 ml ONCE ONCE PO Last administered on 11/08/16 15:25; Start 11/08/16 at 15:00; Stop 11/08/16 at 15:01 ; Status DC Thiamine HCl 100 mg/Sodium Chloride 101 ml @ 101 mls/hr DAILY IV Last administered on 11/09/16 08:41; Start 11/09/16 at 09:00; Stop 11/09/16 at 12:36 ; Status DC Norepinephrine Bitartrate (Levophed-Dextrose Drip) 250 ml @ 0 mls/hr TITRATE IV ; Start 11/08/16 at 15:30; Stop 11/09/16 at 12:36; Status DC Terbutaline Sulfate (Brethine Inj) 1 mg UNSCH PRN SQ For Extravasation; Start 11/08/16 at 15:30 Iodixanol 46 ml 46 ml STK-MED ONCE IV Last administered on 11/08/16 18:41; Start 11/08/16 at 18:41; Stop 11/08/16 at 18:42; Status DC Vancomycin HCl/ Sodium Chloride (Vancomycin Inj/ NS 250 ml Inj) 250 ml @ 250 mls/hr Q24H IV Last administered on 11/09/16 16:02; Start 11/09/16 at 11:00; Stop 11/10/16 at 09:35; Status DC Miscellaneous Information SPECIFIC LAB TO BE DRAWN:VANCO TROUGH DATE TO BE DR... ONCE ONCE XX ; Start 11/11/16 at 15:45; Stop 11/11/16 at 15:46; Status Cancel Hydrocortisone Sodium Succinate (SoluCORTEF INJ) 50 mg Q6HR IV PUSH Last administered on 11/10/16 05:55; Start 11/09/16 at 18:00; Stop 11/10/16 at 08:29; Status DC Thiamine HCl (Vitamin B1) 100 mg DAILY PO Last administered on 11/14/16 07:56; Start 11/10/16 at 09:00 Multivitamins 1 tab 1 tab DAILY PO Last administered on 11/14/16 07:56; Start 11/09/16 at 12:30 Dextrose/Sodium Chloride (D5W-NS 1000 ml Inj) 1,000 ml @ 50 mls/hr Q20H IV Last administered on 11/10/16 18:30; Start 11/09/16 at 12:30; Status Hold Dextrose (D50w (Vial) Inj) 25 ml UNSCH PRN IV PUSH HYPOGLYCEMIA-SEE COMMENTS; Start 11/09/16 at 12:30 Glucagon (Glucagon Inj) 1 mg UNSCH PRN OTHER HYPOGLYCEMIA-SEE COMMENTS; Start 11/09/16 at 12:30 Insulin Human Regular 1 1 Q6H SQ ; Start 11/09/16 at 12:30 Calcium Gluconate/ Sodium Chloride (Calcium Gluconate Inj/NS Inj) 110 ml @ 110 mls/hr ONCE ONCE IV Last administered on 11/09/16 14:11; Start 11/09/16 at 14 :00; Stop 11/09/16 at 14:59; Status DC Bumetanide (Bumex Inj) 1 mg ONCE ONCE IV PUSH Last administered on 11/09/16 14:11; Start 11/09/16 at 12:45; Stop 11/09/16 at 12:46; Status DC Albumin Human (Albumin 5% Inj) 12.5 gm Q12H IV Last administered on 11/13/16 01 :18; Start 11/09/16 at 12:45; Stop 11/13/16 at 09:46; Status DC Lidocaine HCl (Xylocaine-Mpf 1% Inj) 30 ml STK-MED ONCE .ROUTE Last administered on 11/09/16 15:11; Start 11/09/16 at 15:11; Stop 11/09/16 at 15:12 ; Status DC Hydrocortisone Sodium Succinate (SoluCORTEF INJ) 50 mg Q8HR IV PUSH Last administered on 11/11/16 05:23; Start 11/10/16 at 14:00; Stop 11/11/16 at 10:34; Status DC Potassium Bicarb/ Potassium Chloride (K-Lyte Cl Eff) 25 meq ONCE ONCE PO Last administered on 11/10/16 08:52; Start 11/10/16 at 08:30; Stop 11/10/16 at 08: 34; Status DC Potassium Bicarb/ Potassium Chloride (K-Lyte Cl Eff) 25 meq ONCE ONCE PO Last administered on 11/10/16 12:47; Start 11/10/16 at 12:00; Stop 11/10/16 at 12: 01; Status DC Bumetanide 0.5 mg 0.5 mg ONCE ONCE IV PUSH Last administered on 11/10/16 08:30 ; Start 11/10/16 at 08:30; Stop 11/10/16 at 08:33; Status DC Vancomycin HCl/ Sodium Chloride (Vancomycin Inj/ NS 250 ml Inj) 250 ml @ 250 mls/hr Q24H IV Last administered on 11/10/16 19:07; Start 11/10/16 at 16:00; Stop 11/11/16 at 09:33; Status DC Hydrocortisone Sodium Succinate (SoluCORTEF INJ) 50 mg Q12HR IV PUSH Last administered on 11/11/16 21:32; Start 11/11/16 at 21:00; Stop 11/12/16 at 09:40; Status DC Potassium Bicarb/ Potassium Chloride (K-Lyte Cl Eff) 25 meq ONCE ONCE PO Last administered on 11/11/16 11:07; Start 11/11/16 at 11:00; Stop 11/11/16 at 11: 01; Status DC Potassium Bicarb/ Potassium Chloride 25 meq 25 meq ONCE ONCE PO Last administered on 11/11/16 14:26; Start 11/11/16 at 14:00; Stop 11/11/16 at 14:01; Status DC Potassium Chloride (KCl 20 Meq Premix Inj) 100 ml @ 50 mls/hr BOLUS ONCE IV Last administered on 11/11/16 11:08; Start 11/11/16 at 11:00; Stop 11/11/16 at 12: 59; Status DC Enalaprilat (Vasotec Inj) 1.25 mg Q8H PRN IV PUSH SBP> OR = 180, DBP> OR = 100 Last administered on 11/12/16 03:41; Start 11/11/16 at 14:00 Furosemide (Lasix) 40 mg DAILY PO ; Start 11/12/16 at 09:45; Stop 11/12/16 at 09: 47; Status DC Spironolactone (Aldactone) 25 mg DAILY PO Last administered on 11/14/16 07:56; Start 11/13/16 at 09:00 Potassium Chloride (KCl) 40 meq ONCE ONCE PO Last administered on 11/12/16 10: 07; Start 11/12/16 at 09:45; Stop 11/12/16 at 09:46; Status DC Potassium Chloride (KCl) 30 meq ONCE ONCE PO Last administered on 11/12/16 15: 09; Start 11/12/16 at 14:00; Stop 11/12/16 at 14:01; Status DC Pantoprazole Sodium (Protonix) 40 mg Q12HR PO Last administered on 11/14/16 07: 56; Start 11/12/16 at 21:00 Furosemide (Lasix) 40 mg DAILY PO Last administered on 11/14/16 07:56; Start at 09:00 Bumetanide 0.5 mg 0.5 mg ONCE ONCE IV PUSH Last administered on 11/12/16 10:09 ; Start 11/12/16 at 10:30; Stop 11/12/16 at 10:31; Status DC Piperacillin Sod/ Tazobactam Sod 50 ml @ 200 mls/hr Q6H IV Last administered on 11/14/16 07:56; Start 11/12/16 at 16:00 Daptomycin/Sodium Chloride (Cubicin Inj/NS Inj) 100 ml @ 200 mls/hr Q24H IV Last administered on 11/13/16 12:24; Start 11/12/16 at 12:00 Hydromorphone HCl (Dilaudid Pf Inj) 1 mg Q3HR PRN IV PUSH PAIN 6-10 Last administered on 11/14/16 04:48; Start 11/13/16 at 09:45 Alprazolam (Xanax) 0.125 mg Q8HR PRN PO ANXIETY; Start 11/13/16 at 09:45 Miscellaneous (Pill Splitter) 1 ea UNSCH PRN OTHER SEE LABEL COMMENTS; Start at 11:00 A/P Assessment and Plan A/P Alcohol dependence -Watch for alcohol withdrawal, supplement Thiamine, MVI -As needed morphine for pain Respiratory insufficiency- Left lower lobe pneumonia COPD -Continue with oxygen keep sat >92% -repeat CXR today -one dose of IV lasix today - continue neb treatment -continue Abx s/p Septic shock -stopped Hydrocortisone -continue antibiotics Abdominal pain Probable acute cholecystitis Acute pancreatitis Liver cirrhosis Ascites, with possible hemorrhagic component -s/p paracentesis with removal of 1000 ml of fluid - consulted IR to repeat paracentesis but the IR wasn't comfortable repeating the procedure due to risk of bleeding -fluid culture positive for klebsiella and enterococcus -continue protonix -Broad-spectrum antibiotics; on Zosyn and Cubicin-per ID -continue diuretics with close monitoring of renal function -one dose of IV lasix and place back brito cath. -check ammonia level today -general surgery and GI signed off. Acute kidney failure - improved -Monitor renal function, I/O's, electrolytes replacement per protocol. -Renal function fairly stable Anemia requiring transfusion Thrombocytopenia Coagulopathy -s/p transfusion 2u PRBC 11/08 -Monitor CBC, CMP, Coags hypokalemia -Electrolytes replacement as needed hypoglycemia stop SSI- will monitor accu-checks closely. consider D5W if blood sugar levels remain low. PROPH: -Bilateral lower extremity SCDs. Avoid chemical prophylaxis due to anemia, coagulopathy and thrombocytopenia code status was d/w the patient; she wants to talk to her family first. will consider palliative care consult and this was d/w the patient. possible transfer back to ICU if becomes unstable. d/w the RN. Discharge Planning not ready for discharge yet. Nelson Shaver MD Nov 14, 2016 10:26
[2016-11-14] MEDS ORDERED: FUROSEMIDE 20 MG/2 ML VIAL IV PUSH ONE (10:30)
--- NOTE | 2016-11-14 10:45 | RADRPT ---
EXAM DATE/TIME: 11/14/2016 10:30 [facility] COMPARISON: CHEST SINGLE AP, November 08, 2016, 4:27. INDICATIONS : Short of breath. MEDICAL HISTORY : Hypertension. Osteoarthritis. Cirrhosis. Hepatitis C. SURGICAL HISTORY : None. ENCOUNTER: Subsequent ACUITY: 1 week PAIN SCORE: Non-responsive. LOCATION: Bilateral chest FINDINGS: Underinflated AP view of the chest demonstrates a normal-sized cardiac silhouette. There is hazy opac ity bilaterally with patchy airspace consolidation. No pleural effusion or pneumothorax is identified . Bones and soft tissues demonstrate no acute finding. CONCLUSION: Underinflated examination with airspace opacity bilaterally in a patchy distribution. Although nonspe cific, edema and infection should be considerations. Tony Ferguson MD on November 14, 2016 at 10:42 Board Certified Radiologist. This report was verified electronically.
[2016-11-14] MEDS: DAPTOmycin INJ 300 MG in SODIUM CHLORIDE 0.9% INJ 100 ML IV SCH (12:00)
--- NOTE | 2016-11-14 21:07 | HHI.FPPN ---
Addendum to progress note ADDENDUM Reason for addendum: Additonal documentation Additional information Resident [facility] Note SUBJECTIVE Residents paged for [facility] at 8:[address] Unger and Dr. Zeke Cordova reported to bedside where Floor nurse and Hal[facility] nurse were working to stabilize patient. Patient is a 56-year-old female admitted for acute on chronic pancreatitis, liver failure, and DM2, who presented with blood pressure of 74/50, prompting [facility]. Nurse denies change in mental status from baseline , which is AAOx2, confused, and complaining of pain. She has presented with hypotensive episodes like this previously, possibly earlier today. Pt moaning in bed with eyes closed, but opens eyes to verbal prompting. Speech is slurred and somewhat rambling, but coherent. Chief patient complaint RUQ pain and thirst. Denies chest pain, palpitations, shortness of breath, or leg pain. OBJECTIVE Vital Signs Date Time Temp Pulse Resp B/P Pulse Ox O2 Delivery O2 Flow Rate FiO2 11/14/16 20:50 94 3.00 11/14/16 16:00 97.6 76 20 113/73 11/14/16 08:10 Nasal Cannula I/O: 11/15: 780 mL in, 50mL out, 1 void 11/14: 1.0L in, 0 mL out, 4 voids 3:4: 217 in, 575 out, 3 voids, 1 BM GEN: Adult female in moderate distress secondary to pain DERM: Significant jaundice from head to feet HEENT: Pupils equal, round, 2mm. EOMI. No nystagmus. CV: Pulse 60. Borderline bradycardic. Regular rhythm. No murmurs. Unable to obtain radial pulse R arm or dorsalis pedis pulses. RESP: Anterior lung exam with inspiratory and expiratory rhonchi. Breath sounds equal bilaterally. GI: Significantly distended. Diffusely tender to superficial palpation with guarding. Deep palpation deferred secondary to pain. : Snyder catheter in place, with minimal clear yellow urine in bag. EXT: 2+ pitting edema in lower extremities to knee. SCD on left leg. NEURO: At rest, moaning with eyes closed and mumbling about pain. Opens eyes to verbal command. Oriented to self, year and month (not date), state and city. States her reason for being in the hospital is "her liver". Gross motor and sensory function intact. No facial droop. ASSESSMENT 56-year-old female with acute on chronic pancreatitis. liver disease, and DM2 presenting with hypotension to ~75/50. Pt maintained blood pressure of ~115/65 throughout yesterday, with hypotension to 97/60 this morning. No IVF at present. Blood sugar 84. Significantly reduced UOP over the past two days. Team had not yet had time to do bladder scan, however Snyder in place. Only sedating medication recently given was Dilaudid 1mg two hours prior to Halicat. Differential: third spacing of fluid vs dehydration vs medication adverse event vs hypoglycemia vs arrhythmia vs sepsis vs other PLAN -Continue to monitor vitals -1L NS bolus ordered @999mL/hr -Encourage PO by mouth with sugar-filled liquid and re-check blood sugar -Primary team Dr. Shaver/HORTENCIA was contacted and took over management of patient -No further orders were required by resident physicians at time of leaving the floor SDW: Bethanie Justin MD R1 Nov 14, 2016 21:07
[2016-11-14] MEDS ORDERED: SODIUM CHLOR 0.9% 1000 ML INJ 1,000 ML IV ONE ×2 (21:15→21:45)
[2016-11-14 22:16] LABS: AUTOMATED NEUTROPHIL # 29.3 TH/MM3 (1.8-7.7); BASOPHIL # 0.1 TH/MM3 (0-0.2); BASOPHIL % 0.2 % (0.0-2.0); EOSINOPHIL # 0.3 TH/MM3 (0-0.4); LYMPH % 4.5 % (9.0-44.0); LYMPHOCYTE # 1.4 TH/MM3 (1.0-4.8); MEAN CELL VOLUME 98.7 FL (80.0-100.0); MEAN CORPUSCULAR HEMOGLOBIN 31.1 PG (27.0-34.0); MEAN CORPUSCULAR HGB CONC 31.5 % (32.0-36.0); MONO % 3.5 % (0.0-8.0); NEUT % 90.8 % (16.0-70.0); PLATELET COUNT 83 TH/MM3 (150-450); RED BLOOD COUNT 3.75 MIL/MM3 (4.00-5.30); RED CELL DISTRIBUTION WIDTH 21.9 % (11.6-17.2); WHITE BLOOD COUNT 32.3 TH/MM3 (4.0-11.0)
[2016-11-14 22:18] LABS: HEMO FLAGS AUTO DIFF
[2016-11-14 22:30] LABS: BICARBONATE 13.1 MEQ/L (21.0-32.0); POTASSIUM 4.5 MEQ/L (3.5-5.1)
[2016-11-14] MEDS ORDERED: SODIUM CHLORID 0.9% 500 ML INJ 500 ML IV ONE (22:45)
[2016-11-14 22:55] LABS: BANDS 9 % (0-6); CORRECTED NUCLEATED RBC 1 /100 WBC (0-0); NEUTROPHIL # MANUAL DIFF 29.4 TH/MM3 (1.8-7.7); POLYS (SEG NEUTROPHILS) 82 % (16-70); SCAN/DIFF FINAL DIFF MANUAL; WBC DIFF SAMPLE 100
[2016-11-14 22:59] LABS: BURR CELLS 2+ (NORMAL); PLATELET ESTIMATE SMEAR LOW (NORMAL); PLATELET MORPHOLOGY NORMAL (NORMAL); TOXIC GRANULATION 1+ (NORMAL); TOXIC VACUOLATION PRESENT (NONE SEEN)
[2016-11-14 23:01] LABS: POLYCHROMASIA 2.4 % (0.0-1.9)
[2016-11-14 23:02] LABS: ACANTHOCYTES OCC (NORMAL); KERATOCYTES OCC (NORMAL)
[2016-11-14] MEDS: RESP: ALBUTEROL 2.5 MG/IPRATROPIUM 0.5 MG NEB (SCH) NEB (23:10)
[2016-11-14 23:26] LABS: HEMATOCRIT 38.9 % (35.0-46.0); MEAN CELL VOLUME 97.5 FL (80.0-100.0); MEAN CORPUSCULAR HEMOGLOBIN 30.6 PG (27.0-34.0); MEAN CORPUSCULAR HGB CONC 31.4 % (32.0-36.0); PLATELET COUNT 83 TH/MM3 (150-450); RED BLOOD COUNT 3.99 MIL/MM3 (4.00-5.30); RED CELL DISTRIBUTION WIDTH 21.9 % (11.6-17.2); WHITE BLOOD COUNT 37.4 TH/MM3 (4.0-11.0)
[2016-11-14 23:27] LABS: HEMO FLAGS AUTO DIFF
[2016-11-15] VITALS (15 sets, daily range): BP systolic 84–98; BP diastolic 44–64; PULSE 53–88; RESP 16–27; TEMP 97.2–98; O2SAT 93–100
[2016-11-15] MEDS ORDERED: SODIUM CHLORID 0.9% 500 ML INJ 500 ML IV ONE
[2016-11-15] MEDS ORDERED: DEXT 5%-NACL 0.9% 500 ML INJ 500 ML IV ONE (00:15)
[2016-11-15 00:17] LABS: BANDS 7 % (0-6); CORRECTED NUCLEATED RBC 2 /100 WBC (0-0); EOSINOPHILS 3 % (0-4); METAMYELOCYTES 1 % (0-1); MYELOCYTES 1 % (0-0); PLATELET ESTIMATE SMEAR LOW (NORMAL); PLATELET MORPHOLOGY NORMAL (NORMAL); POLYS (SEG NEUTROPHILS) 82 % (16-70); SCAN/DIFF FINAL DIFF MANUAL; TOXIC GRANULATION 1+ (NORMAL); WBC DIFF SAMPLE 100
[2016-11-15 00:21] LABS: BURR CELLS 1+ (NORMAL); POLYCHROMASIA 2.9 % (0.0-1.9)
[2016-11-15 00:22] LABS: ACANTHOCYTES OCC (NORMAL); KERATOCYTES OCC (NORMAL)
[2016-11-15 00:23] LABS: TOXIC VACUOLATION PRESENT (NONE SEEN)
[2016-11-15] MEDS ORDERED: ASP: Path resistant to other antimicrobials, culture proven XX PRN (00:30)
[2016-11-15] MEDS ORDERED: MISCELLANEOUS PHARMACY INFORMATION XX PRN (00:30)
--- NOTE | 2016-11-15 00:38 | HHI.CCPN ---
Subjective Remarks/Hospital Course Patient is a 56-year-old female with past medical history significant for liver cirrhosis, hepatitis C, alcohol dependence, hypertension, history of GI bleed, tobacco abuse, anxiety and depression who was admitted to the hospitalist service on 11/06/16 with severe epigastric abdominal pain x 3 days duration, associated with nausea and vomiting. No diarrhea, no blood in stools. Abdominal/Pelvis CT showed Cirrhotic liver with moderate abdominal ascites, dilated gallbladder containing intraluminal density and gallstones, wall thickening within sigmoid colon with diverticulosis. Lipase initially 936 on admission, and had been gradually trending down. Ultrasound showed liver cirrhosis, chronic appearing portal vein thrombosis, gallbladder wall thickening and pericholecystic fluid with sludge. Clinical findings are concerning for acute cholecystitis. Gastroenterology and general surgery had been consulted. Patient had been receiving vancomycin and Zosyn. Today Halicat was called for hypotension, systolic blood pressures in the low 80s. Lactic acid was 4.6. Patient was started on IV fluid boluses a total of 3L and was moved emergently to the ICU. On my exam patient is lethargic remains borderline hypotensive and is receiving the third liter of IV fluid. Her ABG shows metabolic acidosis. 2 Amps of bicarbonate were given. Her clinical exam shows significant abdominal tenderness diffusely. Her presentation is concerning for mesenteric ischemia also. A stat CT abdomen pelvis with IV contrast and oral contrast had been ordered, D/W general surgery Dr. Gutierrez 11/09 Patient is awake and alert lying in bed in [facility]. s/p CT guided paracentesis today with removal 1L s/p transfusion 2u PRBC last night Hgb 8.9 this morning from 6.0 CCM Re consult Note: 11/15/16: Critical care medicine was reconsulted today for severe hypotension and worsening sepsis with septic shock. Apparently patient had underwent CT-guided paracentesis on 11/09/16 and fluid studies had shown bacterial peritonitis (EBC 24K, RBC 94K, Fluid culture ESBL Klebsiella and VRE). Infectious disease also following and patient had been getting daptomycin and Zosyn. Patient was not able to be profoundly hypotensive today recordable blood pressure 57/40 yesterday evening. Patient was given 2 L fluid boluses and due to inadequate response was transferred to the ICU. Her white count was 9.7 on 11/11, but yesterday evening it had bumped to 37.4 with left shift. Also stat lactic acid came back at 6.3. Patient is also developing acute renal failure with BUN 51 and creatinine 2.82. I have discontinued Zosyn and place the patient on meropenem 2 g IV every 8 hours pharmacy to dose adjust for renal failure, will continue Cubicin. Once the patient is stabilized patient will be sent for a CT abdomen pelvis. I evaluated the patient in ICU. She appears critically ill in severe distress. Bedside US showed large ascites. Paracentesis done which showed, thick dark brown fluid which is being send for further studies-Fluid looks infected. I believe her clinical deterioration is secondary to worsening spontaneous bacterial peritonitis. ABG showing severe combined metabolic and respiratory acidosis Objective Vital Signs Date Time Temp Pulse Resp B/P Pulse Ox O2 Delivery O2 Flow Rate FiO2 11/14/16 20:50 94 3.00 11/14/16 20:38 Nasal Cannula 11/14/16 20:00 97.3 24 57/40 11/14/16 16:00 76 Intake and Output 11/14/16 11/14/16 11/15/16 08:00 16:00 00:00 Intake Total 600 ml 780 ml Output Total 50 ml Balance 600 ml 730 ml Result Diagram: 11/14/16 2313 11/14/16 2154 Imaging Last Impressions Lower Extremity Ultrasound 11/08/16 0000 Signed Impressions: Service Date/Time: Tuesday, November 08, 2016 13:59 - CONCLUSION: Negative for deep venous thrombosis.. Ramos Lo MD FACR Chest X-Ray 11/08/16 0000 Signed Impressions: Service Date/Time: Tuesday, November 08, 2016 04:27 - CONCLUSION: 1. Subsegmental basal airspace disease, slightly increased on the left since November 07. Hua Pennington MD Abdomen/Pelvis CT 11/08/16 0000 Signed Impressions: Service Date/Time: Tuesday, November 08, 2016 18:35 - CONCLUSION: Increasing ascites and developing anasarca. No other significant change. Edis Plascencia MD Gall Bladder Ultrasound 11/07/16 0000 Signed Impressions: Service Date/Time: Monday, November 07, 2016 09:48 - CONCLUSION: 1. Wall thickening and pericholecystic fluid of the gallbladder and differential includes secondary changes from chronic liver disease and acute cholecystitis. Equivocal sonographic Myles sign as the patient complains of pain during the entire scan. Sludge is in the gallbladder. 2. Ascites present and containing floating debris. The ascites is of heterogeneous attenuation on yesterday's CT suggesting there may be a recently hemorrhagic component. 3. 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 Tony Hdez MD Objective Remarks GENERAL: Patient is lying in bed in in severe distress appears critically ill hypotensive jaundiced SKIN: Warm and dry. Jaundiced HEAD: Atraumatic. Normocephalic. EYES: Pupils equal and round. Positive scleral icterus. ENT: Mucous membranes dry, airway patent NECK: Trachea midline. No JVD. CARDIOVASCULAR: Regular rate and rhythm. No murmur appreciated. Hypotensive receiving second liter fluid bolus RESPIRATORY: Breath sounds equal bilaterally. Expiratory wheezing heard in the left lower lung zone GASTROINTESTINAL: Abdomen is distended diffusely tender. No rebound or guarding. Bedside US showed large ascites. Paracentesis- thick dark brown fluid which appears infected-3L removed MUSCULOSKELETAL: Well-healing right ankle surgical scar NEUROLOGICAL: Awake and alert, oriented 3. No focal deficits. Moderate to severe distress due to abdominal pain Procedures paracentesis A/P Assessment and Plan NEURO: Alcohol dependence -Monitor for alcohol withdrawal, supplement Thiamine, MVI RESP: Severe combined metabolic and respiratory acidosis Respiratory insufficiency Hypoxia Left lower lobe pneumonia COPD -ABG showing severe combined metabolic and respiratory acidosis -2 Amps of bicarbonate followed by bicarbonate infusion at 150 ML per -Continue with oxygen keep sat >92%. May need intubation if ABG not improved in next 2 hours of resuscitation -DuoNeb every 6 hours and when necessary -Restart hydrocortisone 100 mg IV every 8 hours 11/15/16 CV: s/p Septic shock Lactic acidosis-now worsening -Monitor HR and BP keep MAP>65mmHg -Restart stress dose steroids -Levophed if needed to keep map above 65 -Lactic acid has increased to 6.3 previously had normalized -Normal saline boluses totaling 3 L followed by bicarb infusion 150 mL per hour GI: Spontaneous bacterial peritonitis Possible acute cholecystitis Acute pancreatitis Liver cirrhosis Ascites, s/p CT-guided paracentesis to 11/09/16 -Bedside US showed large ascites. Paracentesis- thick dark brown fluid which appears infected 3L fluid removed -After patient is stabilized check stat CT abdomen pelvis without contrast -Gen. surgery Dr. Gutierrez and GI Dr. Trcaey had followed, both had signed off -IV Protonix 40 twice a day -Discontinue Zosyn and start meropenem renally dosed for ESBL Klebsiella, continue Cubicin for VRE : Acute kidney failure -now worsening -Monitor renal function, I/O's -Renal function was improving with normalized creatinine now acutely worsened creatinine is 2.82 secondary to ATN -Patient had been oliguric labs 24 hours -Continue IV fluids as above and IV albumin 25 g every 8 hours -Consult nephrology ID: Septic shock-worsening Severe lactic acidosis Spontaneous bacterial peritonitis Possible cholecystitis Left lower lobe pneumonia -Discontinue Zosyn and start meropenem 11/15/16 for ESBL Klebsiella, continue Cubicin for VRE -Therapeutic paracentesis revealed ascites fluid which appears infected, dark brown further studies pending -Fluid culture on 11/09/16 growing ESBL Klebsiella and VRE -Repeat blood urine and sputum culture, and ascitic fluid culture -CT of the abdomen pelvis once clinically stabilized HEME: Anemia requiring transfusion Thrombocytopenia Coagulopathy -s/p transfusion 2u PRBC 11/08 -Monitor CBC, CMP, Coags -Check INR, fibrinogen level ENDO: -Electrolytes replacement as needed PROPH: -Bilateral lower extremity SCDs. Avoid chemical prophylaxis due to anemia, coagulopathy and thrombocytopenia -Protonix 40 mg IV daily every 12 LINES: -Utilize peripheral IVs. Central line if needed for pressor use CCT 78 MIN excluding procedures Allen Jimenez MD Nov 15, 2016 00:38 Allen Jimenez MD Nov 15, 2016 00:38
--- NOTE | 2016-11-15 00:47 | HHI.PR ---
Addendum to Inpatient Note Addendum Reason: Additional Documentation Additional Information 56 y/o female with cirrhosis was called a halicat earlier in the night, patient was given 1L bolus with some improvement in BP. I went and assessed the patient and ordered another 500ml bolus of NS. At 2200 labs revealed a spike in wbc to 32.3, since it was such a change in lab value a repeat cbc was ordered and a lactic acid as well. Patient BP began to slowly drop again along (82/44 HR 70 Temp 97.3 02 95) along with blood glucose. Lactic acid showed a 6.3. Another bolus was ordered of D5NS 500ml. Brito has no output and has been irrigated. It was then decided the patient needed to be in the unit and closely monitored. I discussed the case with Dr. Jimenez the python consultant who decided he would take over. Assessment: Patient is jaundice, a&Ox2, diminished breath sounds, abdomen distended with paracentesis dressing in place, brito in place with no out put, +1 pitting edema to bilateral ankles. Plan as stated above and additional: -D5NS bolus -UA ordered -Transfer to ICU and consult Branch Service Specialist. I have alerted Dr. Jimenez that patient is in the unit and he will assume care. Case also was discussed with Dr. Mullins. Nataly Esquivel Nov 15, 2016 00:47
[2016-11-15] MEDS ORDERED: SODIUM CHLOR 0.9% 1000 ML INJ 1,000 ML IV SCH (01:00)
[2016-11-15] MEDS ORDERED: SODIUM CHLOR 0.9% 1000 ML INJ 1,000 ML IV ONE ×2 (01:00→05:15)
[2016-11-15] MEDS ORDERED: MEROPENEM INJ 2,000 MG in SODIUM CHLORIDE 0.9% INJ 100 ML IV SCH (01:00)
[2016-11-15] MEDS: ALBUMIN HUMAN 25% 25 GM/100 ML BAGP IV SCH ×3 (01:00→17:03)
--- NOTE | 2016-11-15 01:34 | PD.PROCEDR ---
Procedure Note Procedure Paracentesis, diagnostic and therapeutic Indication severe septic shock, large ascites, spontaneous bacterial peritonitis Description of procedure: Patient was adequately positioned and left lower quadrant site was marked with ultrasound. Skin was prepared with chlorhexidine 3. Full barrier and sterile precautions used including gown, gloves, mask and, and sterile drape. 1% lidocaine was used to anesthetize the skin. A small skin incision was made and paracentesis Angiocath was inserted into the peritoneal space, thick dark brown ascites fluid was removed. The needle was removed and catheter was connected to Vacutainer. 3000 ml (3 Liter) off thick dark brown infected appearing peritoneal fluid was removed. Fluid send for further studies. Patient tolerated procedure Allen Jimenez MD Nov 15, 2016 01:33
[2016-11-15] MEDS: MEROPENEM INJ 1,000 MG in SODIUM CHLORIDE 0.9% INJ 100 ML IV SCH ×2 (01:42→12:52)
[2016-11-15] MEDS: HYDROCORTISONE SOD SUCCINATE 100 MG VIAL IV PUSH SCH ×4 (01:43→21:06)
[2016-11-15 01:59] LABS: BLOOD GAS BASE EXCESS -14.2 mmol/L (-2-2); BLOOD GAS CARBOXYHEMOGLOBIN 1.5 % (0-4); BLOOD GAS HCO3 13 mmol/L (22-26); BLOOD GAS METHEMOGLOBIN 0.8 % (0-2); BLOOD GAS O2 HGB SATURATION 92 % (90-100); BLOOD GAS OXYGEN CONTENT 13.2 Vol % (12.0-20.0); BLOOD GAS PCO2 38 mmHg (38-42); BLOOD GAS PO2 89 mmHg (61-120); BLOOD GAS TOTAL HGB 10.1 G/DL (12.0-16.0); CRITICAL VALUE YES; TEMP CORR TO 98.6
[2016-11-15 02:00] LABS: DRAW SITE RT BRACHIAL; LITER FLOW 6 L/M; NUMBER OF ARTERIAL PUNCTURES 1; OXYGEN DEVICE SIMPLE MASK; STAT NO; ULNAR PULSE PRESENT
[2016-11-15] MEDS ORDERED: SODIUM BICARBONATE 8.4% INJ 50 MEQ/50 ML SYR ONE (02:06)
[2016-11-15] MEDS: SODIUM BICARBONATE 8.4% INJ 150 MEQ in WATER STERILE FOR INJ 850 ML IV SCH ×3 (02:15→17:29)
[2016-11-15] MEDS ORDERED: SODIUM BICARBONATE 8.4% INJ 50 MEQ/50 ML SYR IV PUSH ONE (02:15)
[2016-11-15] MEDS: RESP: ALBUTEROL 2.5 MG/IPRATROPIUM 0.5 MG NEB (SCH) NEB ×4 (03:15→20:30)
[2016-11-15 03:39] LABS: MEAN CELL VOLUME 95.5 FL (80.0-100.0); MEAN CORPUSCULAR HEMOGLOBIN 31.1 PG (27.0-34.0); MEAN CORPUSCULAR HGB CONC 32.6 % (32.0-36.0); PLATELET COUNT 61 TH/MM3 (150-450); RED BLOOD COUNT 3.46 MIL/MM3 (4.00-5.30); RED CELL DISTRIBUTION WIDTH 21.5 % (11.6-17.2); WHITE BLOOD COUNT 31.3 TH/MM3 (4.0-11.0)
[2016-11-15 03:50] LABS: PERITONEAL LYMPHS 5 %; PERITONEAL MONOS 2 %; PERITONEAL POLYS(SEGS) 93 %; PERITONEAL WBC 7032 /MM3 (0-10)
[2016-11-15 03:55] LABS: HEMO FLAGS AUTO DIFF
[2016-11-15 03:56] LABS: APTT (PATIENT) 57.5 SEC (24.3-30.1); INTERNATIONAL NORMALIZED RATIO 2.4 RATIO; PROTHROMBIN TIME - PATIENT 27.4 SEC (9.8-11.6)
[2016-11-15 03:59] LABS: ALKALINE PHOSPHATASE 64 U/L (45-117); ALT (GPT) 267 U/L (10-53); ANION GAP 17 MEQ/L (5-15); AST (GOT) 1056 U/L (15-37); BICARBONATE 17.8 MEQ/L (21.0-32.0); BLOOD UREA NITROGEN 52 MG/DL (7-18); CHLORIDE 110 MEQ/L (98-107); GLOMERULAR FILTRATION RATE 18 ML/MIN (>89); LDH SERUM 1126 U/L (84-246); MAGNESIUM 1.9 MG/DL (1.5-2.5); POTASSIUM 4.2 MEQ/L (3.5-5.1); SODIUM (NA) 145 MEQ/L (136-145); TOTAL BILIRUBIN ADULT 19.4 MG/DL (0.2-1.0)
[2016-11-15 04:16] LABS: BLOOD GAS BASE EXCESS -9.9 mmol/L (-2-2); BLOOD GAS CARBOXYHEMOGLOBIN 1.7 % (0-4); BLOOD GAS HCO3 16 mmol/L (22-26); BLOOD GAS METHEMOGLOBIN 0.6 % (0-2); BLOOD GAS O2 HGB SATURATION 91 % (90-100); BLOOD GAS OXYGEN CONTENT 12.7 Vol % (12.0-20.0); BLOOD GAS PCO2 38 mmHg (38-42); BLOOD GAS PO2 78 mmHg (61-120); BLOOD GAS TOTAL HGB 9.8 G/DL (12.0-16.0); TEMP CORR TO 98.6
[2016-11-15 04:20] LABS: CRITICAL VALUE YES; LITER FLOW 7 L/M; OXYGEN DEVICE SIMPLE MASK
[2016-11-15 04:21] LABS: DRAW SITE RT BRACHIAL; NUMBER OF ARTERIAL PUNCTURES 1; STAT NO; ULNAR PULSE PRESENT
--- NOTE | 2016-11-15 04:33 | RADRPT ---
EXAM DATE/TIME: 11/15/2016 03:40 [facility] COMPARISON: CHEST SINGLE AP, November 14, 2016, 10:30. INDICATIONS : Shortness of breath. MEDICAL HISTORY : Hypertension. Cirrhosis. Hepatitis C. SURGICAL HISTORY : None. ENCOUNTER: Subsequent ACUITY: 1 week PAIN SCORE: Non-responsive. LOCATION: Bilateral chest FINDINGS: A single view of the chest demonstrates persistent hypoinflation with patchy bilateral airspace disea se. There is elevation of the right hemidiaphragm. Accounting for low lung volumes, heart size is upp er limits of normal. Osseous structures are intact. CONCLUSION: 1. Persistent hypoinflation with patchy bilateral airspace disease. 2. Elevation of the right hemidiaphragm with some associated right basilar atelectatic changes. 3. No significant change from prior. Aba Sams MD on November 15, 2016 at 4:31 Board Certified Radiologist. This report was verified electronically.
[2016-11-15] MEDS ORDERED: SODIUM BICARBONATE 8.4% INJ 50 ML ONE (04:44)
[2016-11-15 06:05] LABS: BANDS 14 % (0-6); CORRECTED NUCLEATED RBC 3 /100 WBC (0-0); EOSINOPHILS 1 % (0-4); NEUTROPHIL # MANUAL DIFF 29.7 TH/MM3 (1.8-7.7); POLYS (SEG NEUTROPHILS) 81 % (16-70); SCAN/DIFF FINAL DIFF MANUAL; WBC DIFF SAMPLE 100
[2016-11-15 06:06] LABS: BURR CELLS 1+ (NORMAL); PLATELET ESTIMATE SMEAR LOW (NORMAL); PLATELET MORPHOLOGY NORMAL (NORMAL)
[2016-11-15 06:08] LABS: ACANTHOCYTES OCC (NORMAL); KERATOCYTES OCC (NORMAL)
[2016-11-15 06:10] LABS: POLYCHROMASIA 3.7 % (0.0-1.9); TOXIC GRANULATION 1+ (NORMAL)
[2016-11-15 06:11] LABS: TOXIC VACUOLATION PRESENT (NONE SEEN)
[2016-11-15] MEDS: PANTOPRAZOLE SODIUM 40 MG VIAL IV PUSH SCH ×2 (06:39→17:03)
[2016-11-15 08:19] LABS: BACTERIA, URINE MOD /hpf; BLOOD, URINE MOD (NEG); COMMENT (UR) CULTURE INDICATED; CULTURE IF INDICATED CULTURE INDICATED; GLUCOSE,URINE TRACE mg/dL (NEG); KETONE, URINE NEG (NEG); MUCUS URINE FEW /lpf (OCC); NITRITE,URINE NEG (NEG); URINE COLOR DARK-YELLOW (YELLW/STRAW)
[2016-11-15] MEDS: SODIUM CHLORIDE 0.9% FLUSH 5 ML FLUSH FLUSH SCH ×2 (08:40→21:06)
[2016-11-15] MEDS: MULTIVITAMIN TAB PO SCH (09:00)
[2016-11-15] MEDS: THIAMINE HCL 100 MG TAB PO SCH (09:00)
--- NOTE | 2016-11-15 09:28 | HHI.GIFU ---
Subjective Remarks Pt transferred to unit for hypotension/sepsis. She is lethargic. She has generalized discomfort. Spoke with Dr. Freeman, pt had paracentesis overnight with 3000cc of dark thick infected appearing ascitic fluid. Objective Vitals I&O Vital Signs Date Time Temp Pulse Resp B/P Pulse Ox O2 Delivery O2 Flow Rate FiO2 11/15/16 06:00 86 11/15/16 04:00 78 11/15/16 04:00 97.2 53 24 90/58 96 Manual Cuff/Auscultation 11/15/16 02:00 72 11/15/16 00:45 78 11/15/16 00:00 97.3 68 22 89/44 93 11/14/16 20:50 94 3.00 11/14/16 20:38 94 Nasal Cannula 3.00 11/14/16 20:00 Nasal Cannula 3.00 11/14/16 20:00 97.3 24 57/40 82 11/14/16 16:00 97.6 76 20 113/73 95 11/14/16 12:00 97.3 75 18 118/65 96 I/O 11/14/16 11/14/16 11/14/16 11/15/16 11/15/16 11/15/16 07:00 15:00 23:00 07:00 15:00 23:00 Intake Total 600 ml 780 ml 1032 ml 4485 ml Output Total 50 ml 2903 ml Balance 600 ml 730 ml 1032 ml 1582 ml Intake Oral 600 ml 780 ml 50 ml IV Total 1032 ml 4435 ml Output Urine Total 50 ml 3 ml Drainage Total 2900 ml # Voids 2 3 # Bowel Movements 0 1 0 Laboratory Laboratory Tests Test 11/14/16 11/14/16 11/14/16 11/15/16 14:23 21:54 23:13 01:30 Ammonia 52 White Blood Count 32.3 37.4 Red Blood Count 3.75 3.99 Hemoglobin 11.6 12.2 Hematocrit 37.0 38.9 Mean Corpuscular Volume 98.7 97.5 Mean Corpuscular Hemoglobin 31.1 30.6 Mean Corpuscular Hemoglobin 31.5 31.4 Concent Red Cell Distribution Width 21.9 21.9 Platelet Count 83 83 Mean Platelet Volume 10.2 10.1 Neutrophils (%) (Auto) 90.8 Lymphocytes (%) (Auto) 4.5 Monocytes (%) (Auto) 3.5 Eosinophils (%) (Auto) 1.0 Basophils (%) (Auto) 0.2 Neutrophils # (Auto) 29.3 Lymphocytes # (Auto) 1.4 Monocytes # (Auto) 1.1 Eosinophils # (Auto) 0.3 Basophils # (Auto) 0.1 CBC Comment AUTO DIFF AUTO DIFF Differential Total Cells 100 100 Counted Neutrophils % (Manual) 82 82 Band Neutrophils % 9 7 Lymphocytes % 6 2 Monocytes % 3 4 Neutrophils # (Manual) 29.4 34.0 Nucleated Red Blood Cells 1 2 Differential Comment FINAL DIFF FINAL DIFF MANUAL MANUAL Toxic Granulation 1+ 1+ Toxic Vacuolation PRESENT PRESENT Platelet Estimate LOW LOW Platelet Morphology Comment NORMAL NORMAL Polychromasia 2.4 2.9 [place] Cells 2+ 1+ Acanthocytes OCC OCC Keratocytes OCC OCC Sodium Level 140 Potassium Level 4.5 Chloride Level 109 Carbon Dioxide Level 13.1 Anion Gap 18 Blood Urea Nitrogen 51 Creatinine 2.82 Estimat Glomerular Filtration 17 Rate Random Glucose 76 Calcium Level 8.4 B-Type Natriuretic Peptide 95 Lactic Acid Level 6.3 Eosinophils % 3 Metamyelocytes 1 Myelocytes 1 Peritoneal Fluid WBC 7032 Peritoneal Fluid RBC 25599 Peritoneal Fluid Neutrophils 93 Peritoneal Fluid Lymphocytes 5 Peritoneal Fluid Monocytes 2 Peritoneal Fluid Comment Peritoneal Fluid Total Protein 1.7 Peritoneal Fluid Albumin 1.0 Peritoneal Fluid LDH 1398 Peritoneal Fluid Glucose 25 Peritoneal Fluid Amylase 22 Test 11/15/16 11/15/16 11/15/16 11/15/16 01:46 01:50 03:23 04:04 Blood Gas Puncture Site RT BRACHIAL RT BRACHIAL Blood Gas Patient Temperature 98.6 98.6 Blood Gas HCO3 13 16 Blood Gas Base Excess -14.2 -9.9 Blood Gas Oxygen Saturation 92 91 Arterial Blood pH 7.16 7.25 Arterial Blood Partial 38 38 Pressure CO2 Arterial Blood Partial 89 78 Pressure O2 Arterial Blood Oxygen Content 13.2 12.7 Arterial Blood 1.5 1.7 Carboxyhemoglobin Arterial Blood Methemoglobin 0.8 0.6 Blood Gas Hemoglobin 10.1 9.8 Oxygen Delivery Device SIMPLE MASK SIMPLE MASK Blood Gas Liter Flow 6 7 Urine Color DARK-YELLOW Urine Turbidity HAZY Urine pH 6.0 Urine Specific [place] 1.015 Urine Protein 100 Urine Glucose (UA) TRACE Urine Ketones NEG Urine Occult Blood MOD Urine Nitrite NEG Urine Bilirubin MOD Urine Urobilinogen LESS THAN 2.0 Urine Leukocyte Esterase MOD Urine RBC 79 Urine WBC 15 Urine Bacteria MOD Urine Mucus FEW Urine Yeast (Budding) OCC Microscopic Urinalysis Comment CULTURE INDICATED White Blood Count 31.3 Red Blood Count 3.46 Hemoglobin 10.8 Hematocrit 33.0 Mean Corpuscular Volume 95.5 Mean Corpuscular Hemoglobin 31.1 Mean Corpuscular Hemoglobin 32.6 Concent Red Cell Distribution Width 21.5 Platelet Count 61 Mean Platelet Volume 9.5 Neutrophils (%) (Auto) Lymphocytes (%) (Auto) Monocytes (%) (Auto) Eosinophils (%) (Auto) Basophils (%) (Auto) Neutrophils # (Auto) Lymphocytes # (Auto) Monocytes # (Auto) Eosinophils # (Auto) Basophils # (Auto) CBC Comment AUTO DIFF Differential Total Cells 100 Counted Neutrophils % (Manual) 81 Band Neutrophils % 14 Lymphocytes % 1 Monocytes % 3 Eosinophils % 1 Neutrophils # (Manual) 29.7 Nucleated Red Blood Cells 3 Differential Comment FINAL DIFF MANUAL Toxic Granulation 1+ Toxic Vacuolation PRESENT Platelet Estimate LOW Platelet Morphology Comment NORMAL Polychromasia 3.7 [place] Cells 1+ Acanthocytes OCC Keratocytes OCC Prothrombin Time 27.4 Prothromb Time International 2.4 Ratio Activated Partial 57.5 Thromboplast Time Fibrinogen 220 Sodium Level 145 Potassium Level 4.2 Chloride Level 110 Carbon Dioxide Level 17.8 Anion Gap 17 Blood Urea Nitrogen 52 Creatinine 2.80 Estimat Glomerular Filtration 18 Rate Random Glucose 108 Calcium Level 7.8 Magnesium Level 1.9 Total Bilirubin 19.4 Aspartate Amino Transf 1056 (AST/SGOT) Alanine Aminotransferase 267 (ALT/SGPT) Alkaline Phosphatase 64 Lactate Dehydrogenase 1126 Total Protein 4.7 Albumin 2.3 Lipase 289 Test 11/15/16 06:25 Lactic Acid Level 4.7 Date/Time Procedure Status Source Growth 11/15/16 03:23 Aerobic Blood Culture Received Blood Other Pending 11/15/16 03:23 Anaerobic Blood Culture Received Blood Other Pending 11/15/16 01:50 Urine Culture Received Urine Clean Catch Pending 11/15/16 01:30 Gram Stain Received Fluid Peritoneal Fluid Pending 11/15/16 01:30 Body Fluid Culture Received Fluid Peritoneal Fluid Pending Imaging Last Impressions Chest X-Ray 11/15/16 0000 Signed Impressions: Service Date/Time: Tuesday, November 15, 2016 03:40 - CONCLUSION: 1. Persistent hypoinflation with patchy bilateral airspace disease. 2. Elevation of the right hemidiaphragm with some associated right basilar atelectatic changes. 3. No significant change from prior. Aba Sams MD Cyst Biopsy Asp-Paracentesis US 11/09/16 0000 Signed Impressions: Service Date/Time: Wednesday, November 09, 2016 09:26 - CONCLUSION: Uncomplicated ultrasound guided paracentesis. Ha Carey MD Lower Extremity Ultrasound 11/08/16 0000 Signed Impressions: Service Date/Time: Tuesday, November 08, 2016 13:59 - CONCLUSION: Negative for deep venous thrombosis.. Ramos Lo MD FACR Abdomen/Pelvis CT 11/08/16 0000 Signed Impressions: Service Date/Time: Tuesday, November 08, 2016 18:35 - CONCLUSION: Increasing ascites and developing anasarca. No other significant change. Edis Plascencia MD Gall Bladder Ultrasound 11/07/16 0000 Signed Impressions: Service Date/Time: Monday, November 07, 2016 09:48 - CONCLUSION: 1. Wall thickening and pericholecystic fluid of the gallbladder and differential includes secondary changes from chronic liver disease and acute cholecystitis. Equivocal sonographic Myles sign as the patient complains of pain during the entire scan. Sludge is in the gallbladder. 2. Ascites present and containing floating debris. The ascites is of heterogeneous attenuation on yesterday's CT suggesting there may be a recently hemorrhagic component. 3. 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 Tony Hdez MD Physical Exam HEENT: Normocephalic; atraumatic;+ jaundice. CHEST: CTA CARDIAC: RRR, hypotensive ABDOMEN: Soft, moderate diffuse tenderness, hepatosplenomegaly; bowel sounds are present in all four quadrants. Ascites. EXTREMITIES: Generalized edema, worse in BLE SKIN: Normal; no rash; + jaundice. TYPE MAPPER: No focal deficits; lethargic Assessment and Plan Plan ASSESSMENT: - Ascites, SBP. S/P paracentesis on 11/09, fluid with klebsiella pneumoniae Esbl positive, Enterococcus Faecium Vre. Rpt. Paracentesis (11/15) with 3000cc of thick dark brown infected appearing peritoneal fluid. WBC 7032, RBC 94,923. Neutrophils 93. Meropenem, Daptomycin, Albumin. ID consulted. - Acute pancreatitis. Abdomen/Pelvis CT (11/06/16)----> 1. Cirrhotic liver with moderate abdominal ascites. 2. Dilated gallbladder containing intraluminal density and gallstones. 3. Wall thickening within the sigmoid colon with diverticulosis. Gall Bladder Ultrasound (11/07/16)------> 1. Wall thickening and pericholecystic fluid of the gallbladder and differential includes secondary changes from chronic liver disease and acute cholecystitis. Equivocal sonographic Myles sign as the patient complains of pain during the entire scan. Sludge is in the gallbladder. 2. Ascites present and containing floating debris. The ascites is of heterogeneous attenuation on yesterday's CT suggesting there may be a recently hemorrhagic component. 3. 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 Lipase 289. WBC 31.3. ALthough also with SBP. There is some evidence of cholecystitis. S/P GS evaluation. NPO. IVF. - Cholecystitis. GS following, high risk for surgery, recommends treating with abx. - Anemia. stable today, no sings of bleeding. EGD (07/28/16)---> single non bleeding ulcer 3-7 mm in size gastric antrum. Pathology with reactive/chemical gastropathy in a background of mild chronic gastritis with intestinal metaplasia and associated granulation tissue, suggestive of ulcer base. Negative for H. Pylori. Colonoscopy (10/10/15)----> Suboptimal preparation of the colon but no gross lesion was noted in the colon. - Thrombocytopenia, Chronic. - Cirrhosis, History of alcohol abuse, Hep C, Chronic portal vein thrombosis. She tells me started tx for hep-c but has been on hold for 2 weeks due to hospitalization - Sepsis, Lactic acidosis. Worsening. Peritoneal fluid with klebsiella pneumoniae Esbl positive, Enterococcus Faecium Vre. Meropenum, Daptomycin per ID PLAN: - NPO for now - NGT for meds if unable to take - Cont. Albumin - Cont. Abx per ID recommendations - Await repeat Bcx, Peritoneal cx - Cont. PPI - Supportive care - Further recommendations to follow based on results of above - Patient seen and examined by Dr. Orr and myself and this note is written on his behalf. Annia Roche Nov 15, 2016 09:27
[2016-11-15] MEDS: ONDANSETRON HCL 4 MG/2 ML VIAL IVP PRN (09:54)
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
[2016-11-15] MEDS ORDERED: LIDOCAINE HCL 2% 100 MG/5 ML SYRINGE ONE (12:05)
[2016-11-15] MEDS ORDERED: ATROPINE SULFATE 1 MG/10 ML SYRINGE ONE (12:05)
[2016-11-15] MEDS: HYDROmorphone HCL PF 1 MG/ML VIAL IV PUSH PRN (12:51)
--- NOTE | 2016-11-15 12:58 | RADRPT ---
EXAM DATE/TIME: 11/15/2016 12:27 [facility] COMPARISON: CT ABDOMEN & PELVIS W CONTRAST, November 08, 2016, 18:35. INDICATIONS : Evaluate for cholecystitis vs. pancreatitis. ORAL CONTRAST: No oral contrast ingested. RADIATION DOSE: 17.82 CTDIvol (mGy) MEDICAL HISTORY : Cirrhosis. Hepatitis C. Hernia, inguinal. SURGICAL HISTORY : None. ENCOUNTER: Initial ACUITY: 1 day PAIN SCALE: 5/10 LOCATION: Bilateral abdomen. TECHNIQUE: Volumetric scanning of the abdomen was performed. Using automated exposure control and adjustment of the mA and/or kV according to patient size, radiation dose was kept as low as reasonably achievable to obtain optimal diagnostic quality images. FINDINGS: LOWER LUNGS: Right basilar airspace disease is noted. There is segmental stem lobar consolidation of the right low er lobe. Patchy infiltrate is identified in the right middle lobe. LIVER: Liver is small and has a coarse irregular capsular margin. Texture is slightly heterogeneous. There i s no evidence of intrahepatic biliary duct dilatation. There are no discrete masses. The gallbladder is contracted. There is continued evidence of mild wall thickening and pericholecystic fluid. A singl e gallstone may be present. Large varices are again noted adjacent to the spleen and along the fundus of the stomach. Moderate to large amount of ascites is identified. SPLEEN: Normal size without lesion. PANCREAS: The pancreas is similar appearance compared to the prior study. There is no evidence of discrete panc reatic inflammation. KIDNEYS: Normal in size and shape. There is no mass, stone, or hydronephrosis. ADRENAL GLANDS: Within normal limits. AORTA/RETROPERITONEAL: There is no aneurysm or lymphadenopathy. BOWEL/MESENTERY: The stomach and visualized small and large bowel demonstrate no abnormality. MUSCULOSKELETAL: Within normal limits for patient age. CONCLUSION: Cirrhotic liver, moderate to large amount of ascites and upper abdominal varices are again noted. Contracted gallbladder with wall thickening and surrounding fluid. No evidence of significant pancreatic inflammation. No consolidating airspace disease right lung base. Edis Plascencia MD on November 15, 2016 at 12:49 Board Certified Radiologist. This report was verified electronically.
[2016-11-15] MEDS: DAPTOmycin INJ 300 MG in SODIUM CHLORIDE 0.9% INJ 100 ML IV SCH (13:55)
--- NOTE | 2016-11-15 14:01 | PD.CONS ---
HPI Service Nephrology Consult Requested By Dr. Jimenez Reason for Consult Acute renal failure Primary Care Physician Kim Lindquist MD History of Present Illness 56-year-old white female with history of cirrhosis of the liver, hepatitis C, history of alcohol use and abuse who presented with epigastric pain and developed pancreatitis the patient has CT scan with IV contrast and creatinine slowly increased over her stay, she was admitted on November 06 and since then creatinine has gone up from 0.9-2.8 with almost anuria, she had large volume paracenteses 2.9 L was removed she is getting albumin. Urine output is very poor patient is alert responsive question what she is getting confused Review of Systems ROS Limitations: Clinical Condition Constitutional: COMPLAINS OF: Fatigue Cardiovascular: COMPLAINS OF: Lower Extremity Edema Gastrointestinal: COMPLAINS OF: Nausea Past Family Social History Allergies: Coded Allergies: *MDRO Multi-Drug Resistant Organism (Verified Adverse Reaction, Unknown, VRE & ESBL, 11/12/16) VRE & ESBL (peritoneal fluid) - 11/09/16 Past Medical History Cirrhosis of the liver Hepatitis C Alcoholism History of smoking GI bleeding Anemia C. difficile Peritonitis Klebsiella and VRE infection Past Surgical History Paracentesis performed ORIF of right leg Reported Medications Reported Meds & Active Scripts Active Neurontin (Gabapentin) 300 Mg Cap 300 Mg PO TID 30 Days Propranolol (Propranolol HCl) 20 Mg Tab 20 Mg PO BID 30 Days Reported Ibuprofen 400 Mg Tab 400 Mg PO Q6H PRN Tylenol Extra Strength (Acetaminophen) 500 Mg Tab 500 Mg PO Q4-6H PRN Protonix (Pantoprazole Sodium) 40 Mg Tab 40 Mg PO BID Aldactone (Spironolactone) 25 Mg Tab 25 Mg PO DAILY Trazodone (Trazodone HCl) 50 Mg Tab 50 Mg PO HS Active Ordered Medications Current Medications Medications (Trade) Dose Ordered Sig/Osmin Route Start Time Stop Time Status Last Admin (NS Flush) 2 ml UNSCH PRN FLUSH 11/06/16 21:15 11/13/16 10:46 (NS Flush) 2 ml BID FLUSH 11/07/16 09:00 11/15/16 08:40 (Zofran Inj) 4 mg Q6H PRN IVP 11/06/16 21:15 11/15/16 09:54 (Dulcolax Supp) 10 mg DAILY PRN CA 11/06/16 21:15 3/2/17 22:44 (Roxicodone) 5 mg Q4H PRN PO 11/06/16 21:15 11/10/16 14:13 (Neurontin) 300 mg TID PO 11/07/16 09:00 Hold 11/08/16 12:01 (Inderal) 20 mg BID PO 11/07/16 09:00 Hold 11/14/16 07:56 (Desyrel) 50 mg HS PO 11/07/16 21:00 Hold 11/07/16 22:16 (Mucinex Er) 600 mg BID PO 11/07/16 23:45 Hold 11/08/16 08:46 Miscellaneous Information Patient in critical care unit? Ass... Q361D XX 11/08/16 13:15 (Brethine Inj) 1 mg UNSCH PRN SQ 11/08/16 15:30 (Vitamin B1) 100 mg DAILY PO 11/10/16 09:00 11/14/16 07:56 Multivitamins 1 tab 1 tab DAILY PO 11/09/16 12:30 11/14/16 07:56 (D5W-NS 1000 ml Inj) 1,000 ml @ 50 mls/hr Q20H IV 11/09/16 12:30 Hold 11/10/16 18:30 Spironolactone 25 mg 25 mg DAILY PO 11/13/16 09:00 Hold 11/14/16 07:56 (Cubicin Inj/NS Inj) 100 ml @ 200 mls/hr Q24H IV 11/12/16 12:00 11/14/16 12:00 (Dilaudid Pf Inj) 1 mg Q3HR PRN IV PUSH 11/13/16 09:45 11/15/16 12:51 (Xanax) 0.125 mg Q8HR PRN PO 11/13/16 09:45 (Pill Splitter) 1 ea UNSCH PRN OTHER 11/13/16 11:00 Hydrocortisone Sodium Succinate 100 mg 100 mg Q8HR IV PUSH 11/15/16 00:45 11/15/16 06:39 (Merrem Inj/NS Inj) 100 ml @ 200 mls/hr Q12H IV 11/15/16 01:00 11/15/16 12:52 Albumin Human 25 gm 25 gm Q8H IV 11/15/16 01:00 11/18/16 00:59 11/15/16 08:40 (Sodium Bicarbonate 8.4% Inj/Sterile Water For Inj) 1,000 ml @ 150 mls/hr Q6H40M IV 11/15/16 02:15 11/15/16 08:40 (Protonix Inj) 40 mg Q12H IV PUSH 11/15/16 06:00 11/15/16 06:39 Family History Noncontributory Social History His history of drinking rum and smoking cigarettes Physical Exam Vital Signs Vital Signs Date Time Temp Pulse Resp B/P Pulse Ox O2 Delivery O2 Flow Rate FiO2 11/15/16 12:00 85 11/15/16 12:00 97.8 82 27 84/57 100 11/15/16 10:00 84 11/15/16 09:38 98 Simple Mask 7.00 11/15/16 08:00 97.4 80 21 98/57 100 11/15/16 08:00 80 11/15/16 07:00 99 Simple Mask 7.00 11/15/16 06:00 86 11/15/16 04:00 78 11/15/16 04:00 97.2 53 24 90/58 96 Manual Cuff/Auscultation 11/15/16 02:00 72 11/15/16 00:45 78 11/15/16 00:00 97.3 68 22 89/44 93 11/14/16 20:50 94 3.00 11/14/16 20:38 94 Nasal Cannula 3.00 11/14/16 20:00 Nasal Cannula 3.00 11/14/16 20:00 97.3 24 57/40 82 11/14/16 16:00 97.6 76 20 113/73 95 Physical Exam GENERAL: Well-nourished, well-developed patient. SKIN: Warm and dry. HEAD: Normocephalic. EYES: No scleral icterus. No injection or drainage. NECK: Supple, trachea midline. No JVD or lymphadenopathy. CARDIOVASCULAR: Regular rate and rhythm without murmurs, gallops, or rubs. RESPIRATORY: Breath sounds diminished at bases GASTROINTESTINAL: Abdomen soft, non-tender,distended. There is clean dressing on the right EXTREMITIES: No cyanosis, 2+ edema. NEUROLOGICAL: Awake, alert, at times gets confused Laboratory Laboratory Tests Test 3/511/14/16 11/14/16 11/15/16 14:23 21:54 23:13 01:30 Ammonia 52 White Blood Count 32.3 37.4 Red Blood Count 3.75 3.99 Hemoglobin 11.6 12.2 Hematocrit 37.0 38.9 Mean Corpuscular Volume 98.7 97.5 Mean Corpuscular Hemoglobin 31.1 30.6 Mean Corpuscular Hemoglobin 31.5 31.4 Concent Red Cell Distribution Width 21.9 21.9 Platelet Count 83 83 Mean Platelet Volume 10.2 10.1 Neutrophils (%) (Auto) 90.8 Lymphocytes (%) (Auto) 4.5 Monocytes (%) (Auto) 3.5 Eosinophils (%) (Auto) 1.0 Basophils (%) (Auto) 0.2 Neutrophils # (Auto) 29.3 Lymphocytes # (Auto) 1.4 Monocytes # (Auto) 1.1 Eosinophils # (Auto) 0.3 Basophils # (Auto) 0.1 CBC Comment AUTO DIFF AUTO DIFF Differential Total Cells 100 100 Counted Neutrophils % (Manual) 82 82 Band Neutrophils % 9 7 Lymphocytes % 6 2 Monocytes % 3 4 Neutrophils # (Manual) 29.4 34.0 Nucleated Red Blood Cells 1 2 Differential Comment FINAL DIFF FINAL DIFF MANUAL MANUAL Toxic Granulation 1+ 1+ Toxic Vacuolation PRESENT PRESENT Platelet Estimate LOW LOW Platelet Morphology Comment NORMAL NORMAL Polychromasia 2.4 2.9 Zach Cells 2+ 1+ Acanthocytes OCC OCC Keratocytes OCC OCC Sodium Level 140 Potassium Level 4.5 Chloride Level 109 Carbon Dioxide Level 13.1 Anion Gap 18 Blood Urea Nitrogen 51 Creatinine 2.82 Estimat Glomerular Filtration 17 Rate Random Glucose 76 Calcium Level 8.4 B-Type Natriuretic Peptide 95 Lactic Acid Level 6.3 Eosinophils % 3 Metamyelocytes 1 Myelocytes 1 Peritoneal Fluid WBC 7032 Peritoneal Fluid RBC 55838 Peritoneal Fluid Neutrophils 93 Peritoneal Fluid Lymphocytes 5 Peritoneal Fluid Monocytes 2 Peritoneal Fluid Comment Peritoneal Fluid Total Protein 1.7 Peritoneal Fluid Albumin 1.0 Peritoneal Fluid LDH 1398 Peritoneal Fluid Glucose 25 Peritoneal Fluid Amylase 22 Test 11/15/16 11/15/16 11/15/16 11/15/16 01:46 01:50 03:23 04:04 Blood Gas Puncture Site RT BRACHIAL RT BRACHIAL Blood Gas Patient Temperature 98.6 98.6 Blood Gas HCO3 13 16 Blood Gas Base Excess -14.2 -9.9 Blood Gas Oxygen Saturation 92 91 Arterial Blood pH 7.16 7.25 Arterial Blood Partial 38 38 Pressure CO2 Arterial Blood Partial 89 78 Pressure O2 Arterial Blood Oxygen Content 13.2 12.7 Arterial Blood 1.5 1.7 Carboxyhemoglobin Arterial Blood Methemoglobin 0.8 0.6 Blood Gas Hemoglobin 10.1 9.8 Oxygen Delivery Device SIMPLE MASK SIMPLE MASK Blood Gas Liter Flow 6 7 Urine Color DARK-YELLOW Urine Turbidity HAZY Urine pH 6.0 Urine Specific Hunt 1.015 Urine Protein 100 Urine Glucose (UA) TRACE Urine Ketones NEG Urine Occult Blood MOD Urine Nitrite NEG Urine Bilirubin MOD Urine Urobilinogen LESS THAN 2.0 Urine Leukocyte Esterase MOD Urine RBC 79 Urine WBC 15 Urine Bacteria MOD Urine Mucus FEW Urine Yeast (Budding) OCC Microscopic Urinalysis Comment CULTURE INDICATED White Blood Count 31.3 Red Blood Count 3.46 Hemoglobin 10.8 Hematocrit 33.0 Mean Corpuscular Volume 95.5 Mean Corpuscular Hemoglobin 31.1 Mean Corpuscular Hemoglobin 32.6 Concent Red Cell Distribution Width 21.5 Platelet Count 61 Mean Platelet Volume 9.5 Neutrophils (%) (Auto) Lymphocytes (%) (Auto) Monocytes (%) (Auto) Eosinophils (%) (Auto) Basophils (%) (Auto) Neutrophils # (Auto) Lymphocytes # (Auto) Monocytes # (Auto) Eosinophils # (Auto) Basophils # (Auto) CBC Comment AUTO DIFF Differential Total Cells 100 Counted Neutrophils % (Manual) 81 Band Neutrophils % 14 Lymphocytes % 1 Monocytes % 3 Eosinophils % 1 Neutrophils # (Manual) 29.7 Nucleated Red Blood Cells 3 Differential Comment FINAL DIFF MANUAL Toxic Granulation 1+ Toxic Vacuolation PRESENT Platelet Estimate LOW Platelet Morphology Comment NORMAL Polychromasia 3.7 Zach Cells 1+ Acanthocytes OCC Keratocytes OCC Prothrombin Time 27.4 Prothromb Time International 2.4 Ratio Activated Partial 57.5 Thromboplast Time Fibrinogen 220 Sodium Level 145 Potassium Level 4.2 Chloride Level 110 Carbon Dioxide Level 17.8 Anion Gap 17 Blood Urea Nitrogen 52 Creatinine 2.80 Estimat Glomerular Filtration 18 Rate Random Glucose 108 Calcium Level 7.8 Magnesium Level 1.9 Total Bilirubin 19.4 Aspartate Amino Transf 1056 (AST/SGOT) Alanine Aminotransferase 267 (ALT/SGPT) Alkaline Phosphatase 64 Lactate Dehydrogenase 1126 Total Protein 4.7 Albumin 2.3 Lipase 289 Test 11/15/16 06:25 Lactic Acid Level 4.7 Date/Time Procedure Status Source Growth 11/15/16 03:23 Aerobic Blood Culture Resulted Blood Other Pending 11/15/16 03:23 Anaerobic Blood Culture - Final Resulted Blood Other QNS - SEE AEROBE REPORT 11/15/16 01:50 Urine Culture Received Urine Catheterized Urine Pending 11/15/16 01:50 Cancelled Urine Clean Catch 11/15/16 01:30 Gram Stain Received Fluid Peritoneal Fluid Pending 11/15/16 01:30 Body Fluid Culture Received Fluid Peritoneal Fluid Pending Result Diagram: 11/15/16 0323 11/15/16 0323 Imaging Last Impressions Chest X-Ray 11/15/16 0000 Signed Impressions: Service Date/Time: Tuesday, November 15, 2016 03:40 - CONCLUSION: 1. Persistent hypoinflation with patchy bilateral airspace disease. 2. Elevation of the right hemidiaphragm with some associated right basilar atelectatic changes. 3. No significant change from prior. Aba Sams MD Abdomen CT 11/15/16 0000 Signed Impressions: Service Date/Time: Tuesday, November 15, 2016 12:27 - CONCLUSION: Cirrhotic liver , moderate to large amount of ascites and upper abdominal varices are again noted. Contracted gallbladder with wall thickening and surrounding fluid. No evidence of significant pancreatic inflammation. No consolidating airspace disease right lung base. Edis Plascencia MD Cyst Biopsy Asp-Paracentesis US 11/09/16 0000 Signed Impressions: Service Date/Time: Wednesday, November 09, 2016 09:26 - CONCLUSION: Uncomplicated ultrasound guided paracentesis. Ha Carey MD Lower Extremity Ultrasound 11/08/16 0000 Signed Impressions: Service Date/Time: Tuesday, November 08, 2016 13:59 - CONCLUSION: Negative for deep venous thrombosis.. Ramos Lo MD FACR Abdomen/Pelvis CT 11/08/16 0000 Signed Impressions: Service Date/Time: Tuesday, November 08, 2016 18:35 - CONCLUSION: Increasing ascites and developing anasarca. No other significant change. Edis Plascencia MD Gall Bladder Ultrasound 11/07/16 0000 Signed Impressions: Service Date/Time: Monday, November 07, 2016 09:48 - CONCLUSION: 1. Wall thickening and pericholecystic fluid of the gallbladder and differential includes secondary changes from chronic liver disease and acute cholecystitis. Equivocal sonographic Myles sign as the patient complains of pain during the entire scan. Sludge is in the gallbladder. 2. Ascites present and containing floating debris. The ascites is of heterogeneous attenuation on yesterday's CT suggesting there may be a recently hemorrhagic component. 3. 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 Tony Hdez MD Assessment and Plan Problem List: (1) Acute renal failure Plan: She has low urine output that she is getting albumin give her midodrine to increase her blood pressure and blood flow to the kidneys she has overall poor prognosis At this point we will continue with albumin and supportive measures, check urine sodium and creatinine She is a poor candidate to go on hemodialysis (2) Hepatorenal syndrome Plan: Hepatorenal syndrome is due to her liver failure and chronic cirrhosis (3) Cirrhosis of liver Plan: Patient has risk factors alcoholism and hepatitis C (4) Portal hypertensive gastropathy Plan: She will be given midodrine (5) Varices, gastric Plan: GI is following (6) Ascites Plan: Post paracentesis (7) Thrombosis, portal vein Plan: She has coagulopathy Problem Qualifiers (1) Acute renal failure: Qualified Code: N17.9 - Acute renal failure, unspecified acute renal failure type (2) Cirrhosis of liver: (3) Ascites: Qualified Code: K70.31 - Ascites due to alcoholic cirrhosis Jesse Mckenna MD Nov 15, 2016 14:01
[2016-11-15] MEDS: LINEZOLID 600 MG PREMIX 300 ML IV SCH (15:51)
[2016-11-15] MEDS: MIDODRINE 5 MG TAB PO SCH (17:03)
[2016-11-16] VITALS (14 sets, daily range): BP systolic 96–145; BP diastolic 58–89; PULSE 76–92; RESP 15–30; TEMP 96.7–98.1; O2SAT 95–97
[2016-11-16] MEDS: SODIUM BICARBONATE 8.4% INJ 150 MEQ in WATER STERILE FOR INJ 850 ML IV SCH ×3 (00:01→19:00)
[2016-11-16] MEDS: ALBUMIN HUMAN 25% 25 GM/100 ML BAGP IV SCH ×3 (00:01→16:56)
[2016-11-16] MEDS: RESP: ALBUTEROL 2.5 MG/IPRATROPIUM 0.5 MG NEB (SCH) NEB ×4 (03:26→19:25)
[2016-11-16] MEDS: LINEZOLID 600 MG PREMIX 300 ML IV SCH ×2 (03:49→15:41)
[2016-11-16] MEDS: ALPRAZolam 0.25 MG TAB PO PRN (04:12)
[2016-11-16 05:05] LABS: AUTOMATED NEUTROPHIL # 25.6 TH/MM3 (1.8-7.7); BASOPHIL % 0.1 % (0.0-2.0); EOSINOPHIL % 0.1 % (0.0-4.0); HEMATOCRIT 26.1 % (35.0-46.0); LYMPH % 2.3 % (9.0-44.0); LYMPHOCYTE # 0.6 TH/MM3 (1.0-4.8); MEAN CELL VOLUME 90.9 FL (80.0-100.0); MEAN CORPUSCULAR HEMOGLOBIN 31.2 PG (27.0-34.0); MEAN CORPUSCULAR HGB CONC 34.3 % (32.0-36.0); MONO % 2.7 % (0.0-8.0); NEUT % 94.8 % (16.0-70.0); PLATELET COUNT 44 TH/MM3 (150-450); RED BLOOD COUNT 2.87 MIL/MM3 (4.00-5.30); RED CELL DISTRIBUTION WIDTH 20.3 % (11.6-17.2)
[2016-11-16 05:06] LABS: HEMO FLAGS AUTO DIFF
[2016-11-16] MEDS: HYDROmorphone HCL PF 1 MG/ML VIAL IV PUSH PRN ×3 (05:10→16:57)
[2016-11-16] MEDS: HYDROCORTISONE SOD SUCCINATE 100 MG VIAL IV PUSH SCH ×3 (05:11→21:19)
[2016-11-16] MEDS: PANTOPRAZOLE SODIUM 40 MG VIAL IV PUSH SCH ×2 (05:11→16:56)
[2016-11-16 05:36] LABS: BICARBONATE 27.6 MEQ/L (21.0-32.0); CALCIUM-PROTEIN CORRECTED 8.7 MG/DL (8.5-10.1); POTASSIUM 3.4 MEQ/L (3.5-5.1)
[2016-11-16 05:37] LABS: TOTAL BILIRUBIN ADULT 17.8 MG/DL (0.2-1.0)
[2016-11-16] MEDS: MIDODRINE 5 MG TAB PO SCH ×3 (06:12→16:56)
[2016-11-16 07:02] LABS: BANDS 31 % (0-6); NEUTROPHIL # MANUAL DIFF 26.5 TH/MM3 (1.8-7.7); POLYS (SEG NEUTROPHILS) 67 % (16-70); WBC DIFF SAMPLE 100
[2016-11-16 07:03] LABS: ACANTHOCYTES OCC (NORMAL); HELMET CELLS OCC (NORMAL); PLATELET ESTIMATE SMEAR LOW (NORMAL)
[2016-11-16 07:04] LABS: PLATELET MORPHOLOGY ENLARGED (NORMAL); SCAN/DIFF FINAL DIFF MANUAL
[2016-11-16] MEDS ORDERED: BUMETANIDE INJ 1 MG/4 ML VIAL IV PUSH ONE (08:45)
[2016-11-16] MEDS: MULTIVITAMIN TAB PO SCH (08:47)
[2016-11-16] MEDS: THIAMINE HCL 100 MG TAB PO SCH (08:48)
[2016-11-16] MEDS: SODIUM CHLORIDE 0.9% FLUSH 5 ML FLUSH FLUSH SCH ×2 (09:00→21:40)
--- NOTE | 2016-11-16 10:30 | HHI.NPPN ---
Subjective History of Present Illness 56 year old female with Cirrhosis, Hep C, ARF ATN Review of Systems General Constitutional: Fatigue Objective Data Data 11/15/16 11/16/16 19:00 07:00 Intake Total 2867 ml 1626 ml Output Total 25 ml 150 ml Balance 2842 ml 1476 ml Intake Oral 0 ml IV Total 1632 ml 1526 ml Albumin 100 ml Other 1235 ml Output Urine Total 25 ml 150 ml # Bowel Movements 0 0 Vital Signs Date Time Temp Pulse Resp B/P Pulse Ox O2 Delivery O2 Flow Rate FiO2 11/16/16 09:18 30 11/16/16 08:33 96 Simple Mask 7.00 11/16/16 07:00 96 Simple Mask 7.00 11/16/16 06:00 92 11/16/16 04:00 90 11/16/16 04:00 97.0 90 22 107/67 97 11/16/16 02:00 87 11/16/16 00:00 97.4 88 23 96/58 97 11/16/16 00:00 88 11/15/16 22:00 86 11/15/16 20:36 98 Simple Mask 7.00 11/15/16 20:00 97.3 84 21 85/64 99 11/15/16 20:00 88 11/15/16 19:00 99 Simple Mask 7.00 11/15/16 18:00 85 11/15/16 16:00 98.0 84 16 90/54 99 11/15/16 16:00 84 11/15/16 14:00 83 11/15/16 12:00 85 11/15/16 12:00 97.8 82 27 84/57 100 -: 11/16/16 0425 11/16/16 0425 Physical Exam General Appearance: Well Developed, Pale Neck Neck Exam: Neck Supple Pulmonary Resp Exam: Decreased Bases Cardiology CV Exam: Regular Gastrointestinal/Abdomen GI Exam: Soft, Distended Extremeties Extremities Exam: Moderate Edema Assessment/Plan Problem List: (1) Acute renal failure Plan: She has low urine output that she is getting albumin on midodrine try Bumex 3 mg q 8 follow UOP d/w Dr. Freeman possible dialysis if do not responds (2) Hepatorenal syndrome Plan: Hepatorenal syndrome is due to her liver failure and chronic cirrhosis (3) Cirrhosis of liver Plan: Patient has risk factors alcoholism and hepatitis C (4) Portal hypertensive gastropathy Plan: She will be given midodrine (5) Varices, gastric Plan: GI is following (6) Ascites Plan: Post paracentesis (7) Thrombosis, portal vein Plan: She has coagulopathy Problem Qualifiers (1) Acute renal failure: Qualified Code: N17.9 - Acute renal failure, unspecified acute renal failure type (2) Cirrhosis of liver: (3) Ascites: Qualified Code: K70.31 - Ascites due to alcoholic cirrhosis Jesse Mckenna MD Nov 16, 2016 10:30
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
[2016-11-16] MEDS: MEROPENEM INJ 1,000 MG in SODIUM CHLORIDE 0.9% INJ 100 ML IV SCH (12:44)
[2016-11-16 12:59] LABS: BICARBONATE 28.7 MEQ/L (21.0-32.0); CALCIUM-PROTEIN CORRECTED 8.2 MG/DL (8.5-10.1); POTASSIUM 3.4 MEQ/L (3.5-5.1)
[2016-11-16 13:01] LABS: TOTAL BILIRUBIN ADULT 18.8 MG/DL (0.2-1.0)
--- NOTE | 2016-11-16 13:27 | HHI.CCPN ---
Subjective Remarks/Hospital Course Patient is a 56-year-old female with past medical history significant for liver cirrhosis, hepatitis C, alcohol dependence, hypertension, history of GI bleed, tobacco abuse, anxiety and depression who was admitted to the hospitalist service on 11/06/16 with severe epigastric abdominal pain x 3 days duration, associated with nausea and vomiting. No diarrhea, no blood in stools. Abdominal/Pelvis CT showed Cirrhotic liver with moderate abdominal ascites, dilated gallbladder containing intraluminal density and gallstones, wall thickening within sigmoid colon with diverticulosis. Lipase initially 936 on admission, and had been gradually trending down. Ultrasound showed liver cirrhosis, chronic appearing portal vein thrombosis, gallbladder wall thickening and pericholecystic fluid with sludge. Clinical findings are concerning for acute cholecystitis. Gastroenterology and general surgery had been consulted. Patient had been receiving vancomycin and Zosyn. Today Halicat was called for hypotension, systolic blood pressures in the low 80s. Lactic acid was 4.6. Patient was started on IV fluid boluses a total of 3L and was moved emergently to the ICU. On my exam patient is lethargic remains borderline hypotensive and is receiving the third liter of IV fluid. Her ABG shows metabolic acidosis. 2 Amps of bicarbonate were given. Her clinical exam shows significant abdominal tenderness diffusely. Her presentation is concerning for mesenteric ischemia also. A stat CT abdomen pelvis with IV contrast and oral contrast had been ordered, D/W general surgery Dr. Gutierrez 11/09 Patient is awake and alert lying in bed in [facility]. s/p CT guided paracentesis today with removal 1L s/p transfusion 2u PRBC last night Hgb 8.9 this morning from 6.0 CCM Re consult Note: 11/15/16: Critical care medicine was reconsulted today for severe hypotension and worsening sepsis with septic shock. Apparently patient had underwent CT-guided paracentesis on 11/09/16 and fluid studies had shown bacterial peritonitis (EBC 24K, RBC 94K, Fluid culture ESBL Klebsiella and VRE). Infectious disease also following and patient had been getting daptomycin and Zosyn. Patient was not able to be profoundly hypotensive today recordable blood pressure 57/40 yesterday evening. Patient was given 2 L fluid boluses and due to inadequate response was transferred to the ICU. Her white count was 9.7 on 11/11, but yesterday evening it had bumped to 37.4 with left shift. Also stat lactic acid came back at 6.3. Patient is also developing acute renal failure with BUN 51 and creatinine 2.82. I have discontinued Zosyn and place the patient on meropenem 2 g IV every 8 hours pharmacy to dose adjust for renal failure, will continue Cubicin. Once the patient is stabilized patient will be sent for a CT abdomen pelvis. I evaluated the patient in ICU. She appears critically ill in severe distress. Bedside US showed large ascites. Paracentesis done which showed, thick dark brown fluid which is being send for further studies-Fluid looks infected. I believe her clinical deterioration is secondary to worsening spontaneous bacterial peritonitis. ABG showing severe combined metabolic and respiratory acidosis 11/16: Awake and alert. Appears slightly dyspneic. Knows she is at [facility]. Negligible urine output. Remains on bicarbonate drip which was decreased to 50 cc/h he did ordered Bumex to attempt to keep patient nonoliguric. Objective Vital Signs Date Time Temp Pulse Resp B/P Pulse Ox O2 Delivery O2 Flow Rate FiO2 11/16/16 10:00 92 11/16/16 09:18 30 11/16/16 08:33 96 Simple Mask 7.00 11/16/16 08:00 97.8 127/77 Intake and Output 11/15/16 11/15/16 11/16/16 08:00 16:00 00:00 Intake Total 4485 ml 2867 ml 501 ml Output Total 2903 ml 25 ml 25 ml Balance 1582 ml 2842 ml 476 ml Result Diagram: 11/16/16 0425 11/16/16 1219 Imaging Last Impressions Lower Extremity Ultrasound 11/08/16 0000 Signed Impressions: Service Date/Time: Tuesday, November 08, 2016 13:59 - CONCLUSION: Negative for deep venous thrombosis.. Ramos Lo MD FACR Chest X-Ray 11/08/16 0000 Signed Impressions: Service Date/Time: Tuesday, November 08, 2016 04:27 - CONCLUSION: 1. Subsegmental basal airspace disease, slightly increased on the left since November 07. Hua Pennington MD Abdomen/Pelvis CT 11/08/16 0000 Signed Impressions: Service Date/Time: Tuesday, November 08, 2016 18:35 - CONCLUSION: Increasing ascites and developing anasarca. No other significant change. Edis Plascencia MD Gall Bladder Ultrasound 11/07/16 0000 Signed Impressions: Service Date/Time: Monday, November 07, 2016 09:48 - CONCLUSION: 1. Wall thickening and pericholecystic fluid of the gallbladder and differential includes secondary changes from chronic liver disease and acute cholecystitis. Equivocal sonographic Myles sign as the patient complains of pain during the entire scan. Sludge is in the gallbladder. 2. Ascites present and containing floating debris. The ascites is of heterogeneous attenuation on yesterday's CT suggesting there may be a recently hemorrhagic component. 3. 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 Tony Hdez MD Objective Remarks GENERAL: Patient is lying in bed in in severe distress appears critically ill hypotensive jaundiced SKIN: Warm and dry. Jaundiced HEAD: Atraumatic. Normocephalic. EYES: Pupils equal and round. Positive scleral icterus. ENT: Mucous membranes dry, airway patent NECK: Trachea midline. No JVD. CARDIOVASCULAR: Regular rate and rhythm. No murmur appreciated. RESPIRATORY: Breath sounds equal bilaterally. Scattered rhonchi and crackles, no wheezing GASTROINTESTINAL: Abdomen is distended. Vague tenderness. No rebound or guarding. Paracentesis- thick dark brown fluid which appears infected-3L removed on 11/15. MUSCULOSKELETAL: Well-healing right ankle surgical scar NEUROLOGICAL: Awake and alert, oriented 3. No focal deficits. Procedures paracentesis A/P Assessment and Plan NEURO: Alcohol dependence -Monitor for alcohol withdrawal, supplement Thiamine, MVI RESP: Severe combined metabolic and respiratory acidosis Respiratory insufficiency Hypoxia Left lower lobe pneumonia COPD -ABG showing severe combined metabolic and respiratory acidosis -Continue with oxygen keep sat >92%. May need intubation if ABG not improved in next 2 hours of resuscitation -DuoNeb every 6 hours and when necessary -Restart hydrocortisone 100 mg IV every 8 hours 11/15/16 CV: s/p Septic shock Lactic acidosis-now worsening -Monitor HR and BP keep MAP>65mmHg -Restart stress dose steroids -Levophed if needed to keep map above 65 -Bicarbonate drip decreased to 50 cc per hour GI: Spontaneous bacterial peritonitis Possible acute cholecystitis Acute pancreatitis Liver cirrhosis Ascites, s/p CT-guided paracentesis to 11/09/16 -Bedside US showed large ascites. Paracentesis- thick dark brown fluid which appears infected 3L fluid removed -After patient is stabilized check stat CT abdomen pelvis without contrast -Gen. surgery Dr. Gutierrez and GI Dr. Tracey had followed, both had signed off -IV Protonix 40 twice a day -Discontinued Zosyn and started meropenem renally dosed for ESBL Klebsiella on , continue Cubicin for VRE. Zyvox added by ID. : Acute kidney failure -now worsening -Monitor renal function, I/O's -Patient remains oliguric minimal urine output. Possible ATN versus hepatorenal syndrome per nephrology. -Continue IV fluids as above and IV albumin 25 g every 8 hours - Discussed with Dr. Mckenna, may need hemodialysis by tomorrow. ID: Sepsis lactic acidosis spontaneous bacterial peritonitis Possible cholecystitis Left lower lobe pneumonia -Discontinue Zosyn and start meropenem 11/15/16 for ESBL Klebsiella, continue Cubicin for VRE. ID added Zyvox -Therapeutic paracentesis revealed ascites fluid which appears infected, dark brown further studies pending -Fluid culture on 11/09/16 growing ESBL Klebsiella and VRE -Repeat blood urine and sputum culture, and ascitic fluid culture -CT of the abdomen pelvis once clinically stabilized HEME: Anemia requiring transfusion Thrombocytopenia Coagulopathy -s/p transfusion 2u PRBC 11/08 -Monitor CBC, CMP, Coags ENDO: -Electrolytes replacement as needed PROPH: -Bilateral lower extremity SCDs. Avoid chemical prophylaxis due to anemia, coagulopathy and thrombocytopenia -Protonix 40 mg IV daily every 12 LINES: -Utilize peripheral IVs. Central line if needed for pressor use Condition critical. CCT 30 MIN excluding procedures Mk Freeman MD Nov 16, 2016 13:27
--- NOTE | 2016-11-16 14:40 | HHI.GIFU ---
Subjective Remarks Pt resting in bed. IV came out and nurse has not been able to get new one and therefore vascular access team coming up to start iv. Pt c/o abdomen feeling tight. (Annia Roche) Objective Vitals I&O Vital Signs Date Time Temp Pulse Resp B/P Pulse Ox O2 Delivery O2 Flow Rate FiO2 11/16/16 10:00 92 11/16/16 09:18 30 11/16/16 08:33 96 Simple Mask 7.00 11/16/16 08:00 88 11/16/16 08:00 97.8 88 28 127/77 97 11/16/16 07:00 96 Simple Mask 7.00 11/16/16 06:00 92 11/16/16 04:00 90 11/16/16 04:00 97.0 90 22 107/67 97 11/16/16 02:00 87 11/16/16 00:00 97.4 88 23 96/58 97 11/16/16 00:00 88 11/15/16 22:00 86 11/15/16 20:36 98 Simple Mask 7.00 11/15/16 20:00 97.3 84 21 85/64 99 11/15/16 20:00 88 11/15/16 19:00 99 Simple Mask 7.00 11/15/16 18:00 85 11/15/16 16:00 98.0 84 16 90/54 99 11/15/16 16:00 84 I/O 11/15/16 11/15/16 11/15/16 11/16/16 11/16/16 11/16/16 07:00 15:00 23:00 07:00 15:00 23:00 Intake Total 4485 ml 2867 ml 501 ml 1125 ml Output Total 2903 ml 25 ml 25 ml 125 ml Balance 1582 ml 2842 ml 476 ml 1000 ml Intake Oral 50 ml 0 ml IV Total 4435 ml 1632 ml 401 ml 1125 ml Albumin 100 ml Other 1235 ml Output Urine Total 3 ml 25 ml 25 ml 125 ml Drainage Total 2900 ml # Bowel Movements 0 0 0 0 Laboratory Laboratory Tests Test 11/16/16 11/16/16 04:25 12:19 White Blood Count 27.0 Red Blood Count 2.87 Hemoglobin 9.0 Hematocrit 26.1 Mean Corpuscular Volume 90.9 Mean Corpuscular Hemoglobin 31.2 Mean Corpuscular Hemoglobin 34.3 Concent Red Cell Distribution Width 20.3 Platelet Count 44 Mean Platelet Volume 10.0 Neutrophils (%) (Auto) 94.8 Lymphocytes (%) (Auto) 2.3 Monocytes (%) (Auto) 2.7 Eosinophils (%) (Auto) 0.1 Basophils (%) (Auto) 0.1 Neutrophils # (Auto) 25.6 Lymphocytes # (Auto) 0.6 Monocytes # (Auto) 0.7 Eosinophils # (Auto) 0.0 Basophils # (Auto) 0.0 CBC Comment AUTO DIFF Differential Total Cells 100 Counted Neutrophils % (Manual) 67 Band Neutrophils % 31 Lymphocytes % 1 Monocytes % 1 Neutrophils # (Manual) 26.5 Differential Comment FINAL DIFF MANUAL Platelet Estimate LOW Platelet Morphology Comment ENLARGED Helmet Cells OCC Acanthocytes OCC Sodium Level 143 144 Potassium Level 3.4 3.4 Chloride Level 101 99 Carbon Dioxide Level 27.6 28.7 Anion Gap 14 16 Blood Urea Nitrogen 66 66 Creatinine 3.20 3.30 Estimat Glomerular Filtration 15 15 Rate Random Glucose 132 107 Lactic Acid Level 3.4 Calcium Level 7.2 7.1 Protein Corrected Calcium 8.7 8.2 Total Bilirubin 17.8 18.8 Aspartate Amino Transf 442 340 (AST/SGOT) Alanine Aminotransferase 196 180 (ALT/SGPT) Alkaline Phosphatase 50 57 Total Protein 4.5 5.0 Albumin 2.9 3.2 Phosphorus Level 6.1 Date/Time Procedure Status Source Growth 11/15/16 03:23 Aerobic Blood Culture - Preliminary Resulted Blood Other NO GROWTH IN 1 DAY 11/15/16 03:23 Anaerobic Blood Culture - Final Resulted Blood Other QNS - SEE AEROBE REPORT 11/15/16 01:50 Urine Culture - Preliminary Resulted Urine Catheterized Urine IMMATURE GROWTH - REINCUBATE 11/15/16 01:50 Cancelled Urine Clean Catch 11/15/16 01:30 Gram Stain - Final Resulted Fluid Peritoneal Fluid 11/15/16 01:30 Body Fluid Culture - Preliminary Resulted Fluid Peritoneal Fluid NO GROWTH IN 24 HOURS. Imaging Last Impressions Chest X-Ray 11/15/16 0000 Signed Impressions: Service Date/Time: Tuesday, November 15, 2016 03:40 - CONCLUSION: 1. Persistent hypoinflation with patchy bilateral airspace disease. 2. Elevation of the right hemidiaphragm with some associated right basilar atelectatic changes. 3. No significant change from prior. Aba Sams MD Abdomen CT 11/15/16 0000 Signed Impressions: Service Date/Time: Tuesday, November 15, 2016 12:27 - CONCLUSION: Cirrhotic liver , moderate to large amount of ascites and upper abdominal varices are again noted. Contracted gallbladder with wall thickening and surrounding fluid. No evidence of significant pancreatic inflammation. No consolidating airspace disease right lung base. Edis Plascencia MD Cyst Biopsy Asp-Paracentesis US 11/09/16 0000 Signed Impressions: Service Date/Time: Wednesday, November 09, 2016 09:26 - CONCLUSION: Uncomplicated ultrasound guided paracentesis. Ha Carey MD Lower Extremity Ultrasound 11/08/16 0000 Signed Impressions: Service Date/Time: Tuesday, November 08, 2016 13:59 - CONCLUSION: Negative for deep venous thrombosis.. Ramos Lo MD FACR Abdomen/Pelvis CT 11/08/16 0000 Signed Impressions: Service Date/Time: Tuesday, November 08, 2016 18:35 - CONCLUSION: Increasing ascites and developing anasarca. No other significant change. Edis Plascencia MD Gall Bladder Ultrasound 11/07/16 0000 Signed Impressions: Service Date/Time: Monday, November 07, 2016 09:48 - CONCLUSION: 1. Wall thickening and pericholecystic fluid of the gallbladder and differential includes secondary changes from chronic liver disease and acute cholecystitis. Equivocal sonographic Myles sign as the patient complains of pain during the entire scan. Sludge is in the gallbladder. 2. Ascites present and containing floating debris. The ascites is of heterogeneous attenuation on yesterday's CT suggesting there may be a recently hemorrhagic component. 3. 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 Tony Hdez MD Physical Exam HEENT: Normocephalic; atraumatic;+ jaundice. CHEST: CTA, Simple Mask. CARDIAC: RRR, hypotensive ABDOMEN: Soft, mild diffuse tenderness, hepatosplenomegaly; bowel sounds are present in all four quadrants. Ascites. EXTREMITIES: Generalized edema, worse in BLE SKIN: Normal; no rash; + jaundice. 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 S/P paracentesis on 11/09, fluid with klebsiella pneumoniae Esbl positive, Enterococcus Faecium Vre. Rpt. Paracentesis (11/15) with 3000cc of thick dark brown infected appearing peritoneal fluid. WBC 7032, RBC 94,923. Neutrophils 93. Meropenem, Daptomycin, Zyvox, Albumin. ID following. - Acute pancreatitis. Abdomen/Pelvis CT (11/06/16)----> 1. Cirrhotic liver with moderate abdominal ascites. 2. Dilated gallbladder containing intraluminal density and gallstones. 3. Wall thickening within the sigmoid colon with diverticulosis. Gall Bladder Ultrasound (11/07/16)------> 1. Wall thickening and pericholecystic fluid of the gallbladder and differential includes secondary changes from chronic liver disease and acute cholecystitis. Equivocal sonographic Myles sign as the patient complains of pain during the entire scan. Sludge is in the gallbladder. 2. Ascites present and containing floating debris. The ascites is of heterogeneous attenuation on yesterday's CT suggesting there may be a recently hemorrhagic component. 3. 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 Lipase 289 on 11/15. WBC 27.0. ALthough also with SBP. There is some evidence of cholecystitis. S/P GS evaluation. NPO. IVF. - Cholecystitis. GS following, high risk for surgery, recommends treating with abx. - Anemia. stable today, no sings of bleeding. EGD (07/28/16)---> single non bleeding ulcer 3-7 mm in size gastric antrum. Pathology with reactive/chemical gastropathy in a background of mild chronic gastritis with intestinal metaplasia and associated granulation tissue, suggestive of ulcer base. Negative for H. Pylori. Colonoscopy (10/10/15)----> Suboptimal preparation of the colon but no gross lesion was noted in the colon. 9.0/26.1. - Thrombocytopenia, Chronic. Plt 44. - Cirrhosis, History of alcohol abuse, Hep C, Chronic portal vein thrombosis. She tells me started tx for hep-c but has been on hold for 2 weeks due to hospitalization - Elevated LFTs. Improved. T. Bili 18.8, AST 340, ALT 180, Alk Phosph 57. - Sepsis, Lactic acidosis. Worsening. Peritoneal fluid with klebsiella pneumoniae Esbl positive, Enterococcus Faecium Vre. Meropenum, Daptomycin, Zyvox.per ID PLAN: - Full liquids - Cont. Albumin - Cont. Abx per ID recommendations - Await final repeat Bcx, Peritoneal cx - Cont. PPI - ? Need for repeat paracentesis. - Supportive care - Further recommendations to follow based on results of above - Patient seen and examined by Dr. Orr and myself and this note is written on his behalf. (Annia Roche) Physician Comments patient was seen and examined, agree with above note, if WBC continue to be elevated then we need to do paracentesis again. over all poor long and short term prognosis. (James Orr MD) Annia Roche Nov 16, 2016 14:40 James Orr MD Nov 16, 2016 16:54
[2016-11-16] MEDS ORDERED: BUMETANIDE INJ 1 MG/4 ML VIAL IV PUSH SCH ×2 (15:00→18:00)
[2016-11-16] MEDS: BUMETANIDE INJ 1 MG/4 ML VIAL IV PUSH SCH ×2 (18:58→23:09)
[2016-11-17] VITALS (14 sets, daily range): BP systolic 142–158; BP diastolic 67–87; PULSE 69–107; RESP 19–35; TEMP 96.6–98; O2SAT 93–97
[2016-11-17] MEDS: HYDROmorphone HCL PF 1 MG/ML VIAL IV PUSH PRN ×2 (00:17→16:46)
[2016-11-17] MEDS: ALBUMIN HUMAN 25% 25 GM/100 ML BAGP IV SCH ×3 (00:19→16:36)
[2016-11-17] MEDS: MEROPENEM INJ 1,000 MG in SODIUM CHLORIDE 0.9% INJ 100 ML IV SCH ×2 (00:21→13:00)
[2016-11-17] MEDS: LINEZOLID 600 MG PREMIX 300 ML IV SCH (03:35)
[2016-11-17] MEDS: RESP: ALBUTEROL 2.5 MG/IPRATROPIUM 0.5 MG NEB (SCH) NEB ×4 (03:56→19:33)
[2016-11-17] MEDS: HYDROCORTISONE SOD SUCCINATE 100 MG VIAL IV PUSH SCH ×3 (05:01→21:36)
[2016-11-17] MEDS: PANTOPRAZOLE SODIUM 40 MG VIAL IV PUSH SCH ×2 (05:02→16:46)
[2016-11-17] MEDS: BUMETANIDE INJ 1 MG/4 ML VIAL IV PUSH SCH ×3 (05:02→21:37)
[2016-11-17 05:42] LABS: BASOPHIL % 0.2 % (0.0-2.0); EOSINOPHIL % 0.1 % (0.0-4.0); HEMATOCRIT 24.9 % (35.0-46.0); LYMPH % 2.6 % (9.0-44.0); LYMPHOCYTE # 0.6 TH/MM3 (1.0-4.8); MEAN CELL VOLUME 91.2 FL (80.0-100.0); MEAN CORPUSCULAR HEMOGLOBIN 31.3 PG (27.0-34.0); MEAN CORPUSCULAR HGB CONC 34.3 % (32.0-36.0); NEUT % 95.1 % (16.0-70.0); PLATELET COUNT 32 TH/MM3 (150-450); RED BLOOD COUNT 2.73 MIL/MM3 (4.00-5.30); RED CELL DISTRIBUTION WIDTH 20.4 % (11.6-17.2); WHITE BLOOD COUNT 22.1 TH/MM3 (4.0-11.0)
[2016-11-17 05:54] LABS: HEMO FLAGS AUTO DIFF
[2016-11-17] MEDS: MIDODRINE 5 MG TAB PO SCH ×3 (06:02→16:36)
[2016-11-17] MEDS: ALPRAZolam 0.25 MG TAB PO PRN (07:54)
[2016-11-17] MEDS: SODIUM CHLORIDE 0.9% FLUSH 5 ML FLUSH FLUSH SCH ×2 (08:07→21:38)
[2016-11-17] MEDS: MULTIVITAMIN TAB PO SCH (08:07)
[2016-11-17] MEDS: THIAMINE HCL 100 MG TAB PO SCH (08:08)
[2016-11-17 08:15] LABS: BANDS 8 % (0-6); MYELOCYTES 1 % (0-0); NEUTROPHIL # MANUAL DIFF 21.2 TH/MM3 (1.8-7.7); POLYS (SEG NEUTROPHILS) 87 % (16-70); WBC DIFF SAMPLE 100
[2016-11-17 08:16] LABS: KERATOCYTES OCC (NORMAL); PLATELET ESTIMATE SMEAR LOW (NORMAL); PLATELET MORPHOLOGY NORMAL (NORMAL); SCAN/DIFF FINAL DIFF MANUAL
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
--- NOTE | 2016-11-17 11:51 | HHI.GIFU ---
Subjective Remarks Resting in bed. Pt more lethargic, confused today. Unable to take medications by mouth according to the nurse. (Annia Roche) Objective Vitals I&O Vital Signs Date Time Temp Pulse Resp B/P Pulse Ox O2 Delivery O2 Flow Rate FiO2 11/17/16 10:17 95 Aerosol Mask 70 11/17/16 10:00 96 11/17/16 08:00 107 11/17/16 08:00 98.0 84 28 153/78 93 11/17/16 07:00 93 Aerosol Mask 7.00 70 11/17/16 06:00 72 11/17/16 04:00 96.6 76 22 157/87 93 11/17/16 04:00 76 11/17/16 02:00 74 11/17/16 00:50 91 Aerosol Mask 70 11/17/16 00:47 30 11/17/16 00:00 96.6 72 35 145/78 96 11/17/16 00:00 73 11/16/16 22:00 76 11/16/16 20:00 96.7 76 15 136/89 96 11/16/16 20:00 77 11/16/16 19:26 97 Simple Mask 7.00 11/16/16 19:00 96 Simple Mask 7.00 11/16/16 18:00 80 11/16/16 16:00 88 11/16/16 16:00 97.9 88 30 145/82 97 11/16/16 14:00 82 11/16/16 12:00 88 11/16/16 12:00 98.1 88 26 138/78 95 I/O 11/16/16 11/16/16 11/16/16 11/17/16 11/17/16 11/17/16 07:00 15:00 23:00 07:00 15:00 23:00 Intake Total 1125 ml 943 ml 830 ml 933 ml Output Total 125 ml 300 ml 400 ml 400 ml Balance 1000 ml 643 ml 430 ml 533 ml IV Total 1125 ml 943 ml 830 ml 833 ml Albumin 100 ml Output Urine Total 125 ml 300 ml 400 ml 400 ml # Bowel Movements 0 1 0 0 Laboratory Laboratory Tests Test 11/16/16 11/17/16 12:19 04:30 Sodium Level 144 Potassium Level 3.4 Chloride Level 99 Carbon Dioxide Level 28.7 Anion Gap 16 Blood Urea Nitrogen 66 Creatinine 3.30 Estimat Glomerular Filtration 15 Rate Random Glucose 107 Calcium Level 7.1 Protein Corrected Calcium 8.2 Phosphorus Level 6.1 Total Bilirubin 18.8 Aspartate Amino Transf 340 (AST/SGOT) Alanine Aminotransferase 180 (ALT/SGPT) Alkaline Phosphatase 57 Total Protein 5.0 Albumin 3.2 White Blood Count 22.1 Red Blood Count 2.73 Hemoglobin 8.5 Hematocrit 24.9 Mean Corpuscular Volume 91.2 Mean Corpuscular Hemoglobin 31.3 Mean Corpuscular Hemoglobin 34.3 Concent Red Cell Distribution Width 20.4 Platelet Count 32 Mean Platelet Volume 9.7 Neutrophils (%) (Auto) 95.1 Lymphocytes (%) (Auto) 2.6 Monocytes (%) (Auto) 2.0 Eosinophils (%) (Auto) 0.1 Basophils (%) (Auto) 0.2 Neutrophils # (Auto) 21.0 Lymphocytes # (Auto) 0.6 Monocytes # (Auto) 0.4 Eosinophils # (Auto) 0.0 Basophils # (Auto) 0.0 CBC Comment AUTO DIFF Differential Total Cells 100 Counted Neutrophils % (Manual) 87 Band Neutrophils % 8 Lymphocytes % 2 Monocytes % 2 Neutrophils # (Manual) 21.2 Myelocytes 1 Differential Comment FINAL DIFF MANUAL Platelet Estimate LOW Platelet Morphology Comment NORMAL Keratocytes OCC Date/Time Procedure Status Source Growth 11/15/16 03:23 Aerobic Blood Culture - Preliminary Resulted Blood Other NO GROWTH IN 2 DAYS 11/15/16 03:23 Anaerobic Blood Culture - Final Resulted Blood Other QNS - SEE AEROBE REPORT 11/15/16 01:50 Urine Culture - Final Complete Urine Catheterized Urine Shell Albicans 11/15/16 01:50 Cancelled Urine Clean Catch 11/15/16 01:30 Gram Stain - Final Resulted Fluid Peritoneal Fluid 11/15/16 01:30 Body Fluid Culture - Preliminary Resulted Gram Positive Cocci Imaging Last Impressions Chest X-Ray 11/15/16 0000 Signed Impressions: Service Date/Time: Tuesday, November 15, 2016 03:40 - CONCLUSION: 1. Persistent hypoinflation with patchy bilateral airspace disease. 2. Elevation of the right hemidiaphragm with some associated right basilar atelectatic changes. 3. No significant change from prior. Aba Sams MD Abdomen CT 11/15/16 0000 Signed Impressions: Service Date/Time: Tuesday, November 15, 2016 12:27 - CONCLUSION: Cirrhotic liver , moderate to large amount of ascites and upper abdominal varices are again noted. Contracted gallbladder with wall thickening and surrounding fluid. No evidence of significant pancreatic inflammation. No consolidating airspace disease right lung base. Edis Plascencia MD Cyst Biopsy Asp-Paracentesis US 11/09/16 0000 Signed Impressions: Service Date/Time: Wednesday, November 09, 2016 09:26 - CONCLUSION: Uncomplicated ultrasound guided paracentesis. Ha Carey MD Lower Extremity Ultrasound 11/08/16 0000 Signed Impressions: Service Date/Time: Tuesday, November 08, 2016 13:59 - CONCLUSION: Negative for deep venous thrombosis.. Ramos Lo MD FACR Abdomen/Pelvis CT 11/08/16 0000 Signed Impressions: Service Date/Time: Tuesday, November 08, 2016 18:35 - CONCLUSION: Increasing ascites and developing anasarca. No other significant change. Edis Plascencia MD Gall Bladder Ultrasound 11/07/16 0000 Signed Impressions: Service Date/Time: Monday, November 07, 2016 09:48 - CONCLUSION: 1. Wall thickening and pericholecystic fluid of the gallbladder and differential includes secondary changes from chronic liver disease and acute cholecystitis. Equivocal sonographic Myles sign as the patient complains of pain during the entire scan. Sludge is in the gallbladder. 2. Ascites present and containing floating debris. The ascites is of heterogeneous attenuation on yesterday's CT suggesting there may be a recently hemorrhagic component. 3. 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 Tony Hdez MD Physical Exam HEENT: Normocephalic; atraumatic;+ jaundice. CHEST: CTA, Simple Mask. CARDIAC: RRR, hypotensive ABDOMEN: Soft, mild diffuse tenderness, hepatosplenomegaly; bowel sounds are present in all four quadrants. Ascites. EXTREMITIES: Generalized edema, worse in BLE SKIN: Normal; no rash; + jaundice. [employer]ER: No focal deficits; lethargic (Annia Roche) Assessment and Plan Plan ASSESSMENT: - Ascites, SBP. S/P paracentesis on 11/09, fluid with klebsiella pneumoniae Esbl positive, Enterococcus Faecium Vre. Rpt. Paracentesis (11/15) with 3000cc of thick dark brown infected appearing peritoneal fluid. WBC 7032, RBC 94,923. Neutrophils 93. Peritoneal culture with GPC. Meropenem, Daptomycin, Zyvox, Albumin. Worsening renal function, unable to add diuretics. ID following. Consider rpt. paracentesis- INR 2.4. Plt 32.0. Plan for pigtail catheter for peritoneal fluid drainage today by [facility]. - Acute pancreatitis. Abdomen/Pelvis CT (11/06/16)----> 1. Cirrhotic liver with moderate abdominal ascites. 2. Dilated gallbladder containing intraluminal density and gallstones. 3. Wall thickening within the sigmoid colon with diverticulosis. Gall Bladder Ultrasound (11/07/16)------> 1. Wall thickening and pericholecystic fluid of the gallbladder and differential includes secondary changes from chronic liver disease and acute cholecystitis. Equivocal sonographic Myles sign as the patient complains of pain during the entire scan. Sludge is in the gallbladder. 2. Ascites present and containing floating debris. The ascites is of heterogeneous attenuation on yesterday's CT suggesting there may be a recently hemorrhagic component. 3. 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 Lipase 289 on 11/15. WBC 22.1. ALthough also with SBP. There is some evidence of cholecystitis. S/P GS evaluation. - Cholecystitis. GS following, high risk for surgery, recommends treating with abx. - Anemia. stable today, no sings of bleeding. EGD (07/28/16)---> single non bleeding ulcer 3-7 mm in size gastric antrum. Pathology with reactive/chemical gastropathy in a background of mild chronic gastritis with intestinal metaplasia and associated granulation tissue, suggestive of ulcer base. Negative for H. Pylori. Colonoscopy (10/10/15)----> Suboptimal preparation of the colon but no gross lesion was noted in the colon. 9.0/26.1. - Coagulopathy/thrombocytopenia, Chronic. worsening. Plt 32. INR 2.4. - ESLD/Cirrhosis/Elevated LFTs. History of alcohol abuse, Hep C, Chronic portal vein thrombosis. On admission, said she was being tx for hep-c but has been on hold for 2 weeks due to hospitalization. Significantly elevated LFTs. DF 89.64. MELD 39. T. Bili 18.8, AST 340, ALT 180, Alk Phosph 57 yesterday. Will add pentoxfylline in case there is any alcoholic hepatitis component ( DF 89.64). Pt with worsening coagulopathy, thrombocytopenia. Poor prognosis. - Sepsis, Lactic acidosis. Worsening. Peritoneal fluid with klebsiella pneumoniae Esbl positive, Enterococcus Faecium Vre. Rpt. Cx with GPC. Meropenum, Daptomycin, Zyvox.per ID PLAN: - Insert Dobhoff - Supervisor Dry Paste for TF recommendations - Cont. Albumin - Cont. Abx per ID recommendations - Await final repeat Bcx, Peritoneal cx - Cont. PPI - Start Pentoxifylline in case there is any alcohol component - Plan is for peritoneal drain today. - Supportive care - Pt with poor prognosis, both short and intermediate. Will consult palliative care to help clarify goals. - Further recommendations to follow based on results of above - Patient seen and examined by Dr. Orr and myself and this note is written on his behalf. (Annia Roche) Physician Comments patient is not doing well, D/W patient and family, they elected hospice and she will be transferring to hospice facility today or tomorrow. we will sign off ( James Orr MD) Annia Roche Nov 17, 2016 11:51 James Orr MD Nov 17, 2016 17:55
[2016-11-17 11:54] LABS: BLOOD GAS CARBOXYHEMOGLOBIN 1.8 % (0-4); BLOOD GAS HCO3 31 mmol/L (22-26); BLOOD GAS METHEMOGLOBIN 0.6 % (0-2); BLOOD GAS O2 HGB SATURATION 92 % (90-100); BLOOD GAS OXYGEN CONTENT 12.3 Vol % (12.0-20.0); BLOOD GAS PCO2 47 mmHg (38-42); BLOOD GAS PO2 77 mmHg (61-120); BLOOD GAS TOTAL HGB 9.4 G/DL (12.0-16.0); CRITICAL VALUE NO; DRAW SITE RT RADIAL; FIO2 70 %; LITER FLOW 12 L/M; NUMBER OF ARTERIAL PUNCTURES 1; OXYGEN DEVICE CAFM; STAT YES; TEMP CORR TO 98.6; ULNAR PULSE PRESENT
--- NOTE | 2016-11-17 12:23 | PD.PROCEDR ---
Procedure Note Procedure Peritoneal drainage catheter placement Indication: Large ascites, Spontaneous bacterial peritonitis Description of procedure: Patient was adequately positioned and left lower quadrant site was marked with ultrasound. Skin was prepared with chlorhexidine 3. Full barrier and sterile precautions used including gown, gloves, mask and, and sterile drape. 1% lidocaine was used to anesthetize the skin. A small skin incision was made and 18 G needle was inserted into the peritoneal space, light brown ascites fluid was removed. Guide wire was inserted and track dilated. The needle was removed and using Seldinger technique 10 Sami pigtail catheter was advanced into the peritoneal space and secured with stay fix. Initial output was 500 mL light brown viscous peritoneal fluid. Fluid send for further studies. Patient tolerated procedure. Blood loss was less than 1ml Allen Jimenez MD Nov 17, 2016 12:23
--- NOTE | 2016-11-17 13:03 | HHI.NPPN ---
Subjective History of Present Illness 56 year old female with Cirrhosis, Hep C, ARF ATN Additional Remarks had Paracentesis repeated Review of Systems General Constitutional: Fatigue Objective Data Data 11/16/16 11/17/16 19:00 07:00 Intake Total 943 ml 1763 ml Output Total 300 ml 800 ml Balance 643 ml 963 ml IV Total 943 ml 1663 ml Albumin 100 ml Output Urine Total 300 ml 800 ml # Bowel Movements 1 0 Vital Signs Date Time Temp Pulse Resp B/P Pulse Ox O2 Delivery O2 Flow Rate FiO2 11/17/16 10:17 95 Aerosol Mask 70 11/17/16 10:00 96 11/17/16 08:00 107 11/17/16 08:00 98.0 84 28 153/78 93 11/17/16 07:00 93 Aerosol Mask 7.00 70 11/17/16 06:00 72 11/17/16 04:00 96.6 76 22 157/87 93 11/17/16 04:00 76 11/17/16 02:00 74 11/17/16 00:50 91 Aerosol Mask 70 11/17/16 00:47 30 11/17/16 00:00 96.6 72 35 145/78 96 11/17/16 00:00 73 11/16/16 22:00 76 11/16/16 20:00 96.7 76 15 136/89 96 11/16/16 20:00 77 11/16/16 19:26 97 Simple Mask 7.00 11/16/16 19:00 96 Simple Mask 7.00 11/16/16 18:00 80 11/16/16 16:00 88 11/16/16 16:00 97.9 88 30 145/82 97 11/16/16 14:00 82 -: 11/17/16 0430 11/16/16 1219 Physical Exam General Appearance: Well Developed, Pale Neck Neck Exam: Neck Supple Pulmonary Resp Exam: Decreased Bases Cardiology CV Exam: Regular Gastrointestinal/Abdomen GI Exam: Soft, Distended Extremeties Extremities Exam: Moderate Edema Assessment/Plan Problem List: (1) Acute renal failure Plan: She has low urine output that she is getting albumin on midodrine Bumex 3 mg q 8 follow UOP it was 1100 cc she had Paracentesis repeat culture pending (2) Hepatorenal syndrome Plan: Hepatorenal syndrome is due to her liver failure and chronic cirrhosis (3) Cirrhosis of liver Plan: Patient has risk factors alcoholism and hepatitis C (4) Portal hypertensive gastropathy Plan: She will be given midodrine (5) Varices, gastric Plan: GI is following (6) Ascites Plan: Post paracentesis culture gr positive treated foe VRE/klebsiella on Dapto/Meropenem (7) Thrombosis, portal vein Plan: She has coagulopathy Problem Qualifiers (1) Acute renal failure: Qualified Code: N17.9 - Acute renal failure, unspecified acute renal failure type (2) Cirrhosis of liver: (3) Ascites: Qualified Code: K70.31 - Ascites due to alcoholic cirrhosis Jesse Mckenna MD Nov 17, 2016 13:02
[2016-11-17] MEDS: PENTOXIFYLLINE 400 MG CONTROLLED RELEASE TAB PO SCH ×2 (14:00→21:37)
[2016-11-17] MEDS ORDERED: DAPTOmycin INJ 300 MG in SODIUM CHLORIDE 0.9% INJ 100 ML IV SCH (14:00)
[2016-11-17] MEDS ORDERED: POTASSIUM CHLOR 20 MEQ PREMIX 100 ML IV ONE (14:00)
--- NOTE | 2016-11-17 14:13 | PD.CONS ---
Consult Service Palliative Care . Consult Requested By Dr. Freeman . Primary Care Physician Kim Lindquist MD Reason for Consultation a. To assist with evaluation and management of symptoms including: encephalopathy, pain, edema. b. To assist medical decision maker(s) with: better understanding of current medical conditions; weighing benefits/burdens of medical treatment options; making medical treatment decisions. . HPI History of Present Illness Ms. Trujillo is a 56-year-old female with past medical history hypertension, hepatitis C, alcoholic cirrhosis, anxiety, depression, G.I. bleed, iron deficiency anemia, thrombocytopenia, C diff in August 2016, alcohol abuse and history of SVT. 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 She underwent removal of broken hardware from right fibula and right tibia, ORIF right tibia and right fibula with iliac crest bone grafting with stem cell graft on 08/03/16. Notes indicate that she was discharged to a "half-way house" on 10/14/16. Patient into to [facility] emergency department again on 11/06/16 with reports of worsening epigastric pain for 3 days prior to presentation. Upon arrival she was found to have a lipase of 936. CT scanning abdomen and pelvis revealed cirrhosis, moderate ascites, distended gallbladder with stones, wall thickening of the: with diverticulosis. She was thrombocytopenic platelets 105. Ultrasound revealed cirrhosis, portal vein thrombosis, gallbladder thickening with pericholecystic sludge consistent with acute cholecystitis. Patient was admitted with pancreatitis, thrombus cytopenias, cirrhosis questionable acute cholecystitis. Gastroenterology, Dr. Orr was consulted. General surgery, Dr. Gutierrez was consulted with recommendations for antibiotics given high risk for surgical intervention given cirrhosis. [facility], patient had a systolic blood pressure in the 80s. Lactic acid was 4.6. She was transferred to ICU. Patient underwent CT guided paracentesis on 11/09/16 fluid studies revealed bacterial peritonitis. Fluid culture was positive for ESBL Klebsiella and VRE. Infectious disease is following. Throughout hospital course patient developed worsening liver and renal function. On 11/15/16 patient developed worsening hypotension with blood pressure 57/40 and was transferred back to ICU. Her creatinine was 2.82 with a BUN 51. CT scan abdomen and pelvis revealed cirrhotic liver, moderate to large amount of ascites, upper abdominal varices, no pancreatic inflammation. Her clinical condition has continued to deteriorate despite aggressive care. ABGs have revealed severe combined metabolic and respiratory acidosis. Respiratory status continues to decline she is now requiring oxygen via mask. Remains on bicarb drip. The BBC remains elevated 22.1, hemoglobin 8.5, hematocrit 24.9, platelet count has dropped significantly now 32. Creatinine 3.3, BUN 66, GFR 15, lactic acid 3.4. Total bilirubin 18.8, AST 340, ALT 180. Medical team feel overall prognosis is poor and the patient is not likely to survive this hospitalization. Hospice would be appropriate. If the family desires continued aggressive care patient would require intubation, dialysis catheter placement and hemodialysis. Patient's mentation continues to wax and wane. Palliative care is consulted to assist with further clarification of treatment goals. . Function/Cognitive Trajectory Patient has had ongoing trajectories decline over many years, most steep decline in the past few months. Patient was admitted in July 2016 for fracture and surgical repair, was not discharged until the beginning of October. . Review of Systems ROS Limitations: Altered Mental Status (mentation waxing and waning) Constitutional: COMPLAINS OF: Fatigue, Change in appetite (decreased), Generalized weakness Respiratory: COMPLAINS OF: Sputum production, Shortness of breath Cardiovascular: COMPLAINS OF: Dyspnea on Exertion Gastrointestinal: COMPLAINS OF: Abdominal pain, Nausea, Difficulty Swallowing, Dyspepsia or heartburn Musculoskeletal: COMPLAINS OF: Joint pain, Back pain Hematologic/Lymphatics: COMPLAINS OF: Bruising, History of transfusions Neurologic: COMPLAINS OF: Poor Balance Other ROS: Bilateral LE edema. Past Family Social History Coded Allergies: *MDRO Multi-Drug Resistant Organism (Verified Adverse Reaction, Unknown, VRE & ESBL, 11/12/16) VRE & ESBL (peritoneal fluid) - 11/09/16 Past Medical History HTN Anxiety Depression Hepatitis C Cirrhosis h/o GI Bleed Tobacco Abuse alcohol abuse thrombocytopenia SVT iron deficiency anemia . Past Surgical History Paracentesis Right LE ORIF x 2 EGD . Reported Medications Reported Meds & Active Scripts Active Neurontin (Gabapentin) 300 Mg Cap 300 Mg PO TID 30 Days Propranolol (Propranolol HCl) 20 Mg Tab 20 Mg PO BID 30 Days Reported Ibuprofen 400 Mg Tab 400 Mg PO Q6H PRN Tylenol Extra Strength (Acetaminophen) 500 Mg Tab 500 Mg PO Q4-6H PRN Protonix (Pantoprazole Sodium) 40 Mg Tab 40 Mg PO BID Aldactone (Spironolactone) 25 Mg Tab 25 Mg PO DAILY Trazodone (Trazodone HCl) 50 Mg Tab 50 Mg PO HS . Current Medications Medications (Trade) Dose Ordered Sig/Osmin Route Start Time Stop Time Status Last Admin (NS Flush) 2 ml UNSCH PRN FLUSH 11/06/16 21:15 11/13/16 10:46 (NS Flush) 2 ml BID FLUSH 11/07/16 09:00 11/17/16 08:07 (Zofran Inj) 4 mg Q6H PRN IVP 11/06/16 21:15 11/15/16 09:54 (Dulcolax Supp) 10 mg DAILY PRN TN 11/06/16 21:15 11/11/16 22:44 (Roxicodone) 5 mg Q4H PRN PO 11/06/16 21:15 11/10/16 14:13 (Neurontin) 300 mg TID PO 11/07/16 09:00 Hold 11/08/16 12:01 (Inderal) 20 mg BID PO 11/07/16 09:00 Hold 11/14/16 07:56 (Desyrel) 50 mg HS PO 11/07/16 21:00 Hold 11/07/16 22:16 (Mucinex Er) 600 mg BID PO 11/07/16 23:45 Hold 11/08/16 08:46 Miscellaneous Information Patient in critical care unit? Ass... Q361D XX 11/08/16 13:15 (Brethine Inj) 1 mg UNSCH PRN SQ 11/08/16 15:30 (Vitamin B1) 100 mg DAILY PO 11/10/16 09:00 11/16/16 08:48 Multivitamins 1 tab 1 tab DAILY PO 11/09/16 12:30 11/16/16 08:47 (D5W-NS 1000 ml Inj) 1,000 ml @ 50 mls/hr Q20H IV 11/09/16 12:30 Hold 11/10/16 18:30 (Aldactone) 25 mg DAILY PO 11/13/16 09:00 Hold 11/14/16 07:56 (Dilaudid Pf Inj) 1 mg Q3HR PRN IV PUSH 11/13/16 09:45 11/17/16 00:17 (Xanax) 0.125 mg Q8HR PRN PO 11/13/16 09:45 11/17/16 07:54 (Pill Splitter) 1 ea UNSCH PRN OTHER 11/13/16 11:00 (SoluCORTEF INJ) 100 mg Q8HR IV PUSH 11/15/16 00:45 11/17/16 05:01 (Albumin 25% Inj) 25 gm Q8H IV 11/15/16 01:00 11/18/16 00:59 11/17/16 08:07 (Protonix Inj) 40 mg Q12H IV PUSH 11/15/16 06:00 11/17/16 05:02 Midodrine 5 mg 5 mg TID@07,12,17 PO 11/15/16 17:00 11/17/16 06:02 Daptomycin 300 mg/ Sodium Chloride 100 ml @ 200 mls/hr Q48H IV 11/17/16 14:00 (Merrem Inj/NS Inj) 100 ml @ 200 mls/hr Q12H IV 11/16/16 13:00 11/17/16 00:21 (Bumex Inj) 3 mg Q8HR IV PUSH 11/16/16 18:00 11/17/16 05:02 Pentoxifylline 400 mg 400 mg Q8HR PO 11/17/16 14:00 (KCl 20 Meq Premix Inj) 100 ml @ 50 mls/hr BOLUS ONCE IV 11/17/16 14:00 11/17/16 15:59 . Family History Mother with breast cancer, heart disease and hypertension and family. . Substance Use Per EMR review: Tobacco: smoked 1/-1/ PPD Alcohol: Couple drinks per week, used to drink more per EMR review Prescription/ illicit med abuse: History of narcotic abuse and narcotic theft. . Psychosocial History . Has one daughter, Abril age 13 who lives with her father, Carlitos. Has a sister and brother who live out of state. . Spiritual/Cultural Factors Muslim gregory. [employer] requested. Living Will: Never completed Health Care Surrogate: Never completed Durable Power of Lamp Replacer: Never completed Health Care Surrogate(s): In speaking with patient during today's visit she indicates that she would want her sister Tayler to serve to make her medical decisions if she is unable. She is too weak to sign written advance directives and becomes lethargic and difficult to arouse before the end of my meeting. . Today's verbally stated goals: Patient states that she would want DNR, wants to consider her daughter and families feelings. She becomes too lethargic during my meeting to further clarify treatment goals. . Family/friends goals: Family (sister, Tayler, brother and ex-, Isaac) also supports transition to comfort focused care with hospice support. They are certain that she would not want life-prolonging measures or procedures. 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 . Ethical and Legal Issues Patient's capacity appears to wax and wane. She has some insight to her liver failure, does not seem to understand the full extent of her disease process. Patient verbalized she would want her sister, Tayler to serve as healthcare decision maker. She is too weak to sign written advance directives and becomes too lethargic to arouse during my meeting today. . Physical Exam Vital Signs Date Time Temp Pulse Resp B/P Pulse Ox O2 Delivery O2 Flow Rate FiO2 11/17/16 10:17 95 Aerosol Mask 70 11/17/16 10:00 96 11/17/16 08:00 107 11/17/16 08:00 98.0 84 28 153/78 93 11/17/16 07:00 93 Aerosol Mask 7.00 70 11/17/16 06:00 72 11/17/16 04:00 96.6 76 22 157/87 93 11/17/16 04:00 76 11/17/16 02:00 74 11/17/16 00:50 91 Aerosol Mask 70 11/17/16 00:47 30 11/17/16 00:00 96.6 72 35 145/78 96 11/17/16 00:00 73 11/16/16 22:00 76 11/16/16 20:00 96.7 76 15 136/89 96 11/16/16 20:00 77 11/16/16 19:26 97 Simple Mask 7.00 11/16/16 19:00 96 Simple Mask 7.00 11/16/16 18:00 80 11/16/16 16:00 88 11/16/16 16:00 97.9 88 30 145/82 97 11/16/16 14:00 82 11/16/16 11/17/16 18:59 06:59 Intake Total 943 ml 1763 ml Output Total 300 ml 800 ml Balance 643 ml 963 ml IV Total 943 ml 1663 ml Albumin 100 ml Output Urine Total 300 ml 800 ml # Bowel Movements 1 0 Exam CONSTITUTIONAL/GENERAL: This is critically ill, jaundiced patient. TUBES/LINES/DRAINS: oxygen via mass, bilateral soft wrist restraints, bilateral PIV, Snyder, SCD's. Left pigtail catheter. SKIN: + jaundice. Skin temperature appropriate. Not diaphoretic. HEAD: Atraumatic. Normocephalic. EYES: Pupils equal and round and reactive. + scleral icterus. ENT: Hearing grossly normal. Nose without bleeding or purulent drainage. Dry mucus membranes and bloody secretions and clots noted in mouth. NECK: Trachea midline. CARDIOVASCULAR: Regular rate and rhythm without murmurs, gallops, or rubs. RESPIRATORY/CHEST: Symmetric, labored respirations at rest. Scattered rhonchi and crackles noted bilaterally. GASTROINTESTINAL: Abdomen soft, tender, distended. Pigtail catheter in place with dark red drainage. GENITOURINARY: Without palpable bladder distension. Snyder catheter in place. MUSCULOSKELETAL: gross generalized edema. LYMPHATICS: No palpable cervical or supraclavicular adenopathy. NEUROLOGICAL: Awakens, lethargic. Profound weakness, unable to sit from straw. Moves all extremities. PSYCHIATRIC: intermittent confusion. . Diagnostic Tests Laboratory Laboratory Tests Test 11/14/16 11/14/16 11/14/16 11/15/16 14:23 21:54 23:13 01:30 Ammonia 52 MCMOL/L (11-32) White Blood Count 32.3 TH/MM3 37.4 TH/MM3 (4.0-11.0) (4.0-11.0) Red Blood Count 3.75 MIL/MM3 3.99 MIL/MM3 (4.00-5.30) (4.00-5.30) Hemoglobin 11.6 GM/DL 12.2 GM/DL (11.6-15.3) (11.6-15.3) Hematocrit 37.0 % 38.9 % (35.0-46.0) (35.0-46.0) Mean Corpuscular Volume 98.7 FL 97.5 FL (80.0-100.0) (80.0-100.0) Mean Corpuscular Hemoglobin 31.1 PG 30.6 PG (27.0-34.0) (27.0-34.0) Mean Corpuscular Hemoglobin 31.5 % 31.4 % Concent (32.0-36.0) (32.0-36.0) Red Cell Distribution Width 21.9 % 21.9 % (11.6-17.2) (11.6-17.2) Platelet Count 83 TH/MM3 83 TH/MM3 (150-450) (150-450) Mean Platelet Volume 10.2 FL 10.1 FL (7.0-11.0) (7.0-11.0) Neutrophils (%) (Auto) 90.8 % % (16.0-70.0) (16.0-70.0) Lymphocytes (%) (Auto) 4.5 % % (9.0-44.0) (9.0-44.0) Monocytes (%) (Auto) 3.5 % (0.0-8.0) % (0.0-8.0) Eosinophils (%) (Auto) 1.0 % (0.0-4.0) % (0.0-4.0) Basophils (%) (Auto) 0.2 % (0.0-2.0) % (0.0-2.0) Neutrophils # (Auto) 29.3 TH/MM3 TH/MM3 (1.8-7.7) (1.8-7.7) Lymphocytes # (Auto) 1.4 TH/MM3 TH/MM3 (1.0-4.8) (1.0-4.8) Monocytes # (Auto) 1.1 TH/MM3 TH/MM3 (0-0.9) (0-0.9) Eosinophils # (Auto) 0.3 TH/MM3 TH/MM3 (0-0.4) (0-0.4) Basophils # (Auto) 0.1 TH/MM3 TH/MM3 (0-0.2) (0-0.2) CBC Comment AUTO DIFF AUTO DIFF Differential Total Cells 100 100 Counted Neutrophils % (Manual) 82 % (16-70) 82 % (16-70) Band Neutrophils % 9 % (0-6) 7 % (0-6) Lymphocytes % 6 % (9-44) 2 % (9-44) Monocytes % 3 % (0-8) 4 % (0-8) Neutrophils # (Manual) 29.4 TH/MM3 34.0 TH/MM3 (1.8-7.7) (1.8-7.7) Nucleated Red Blood Cells 1 /100 WBC 2 /100 WBC (0-0) (0-0) Differential Comment FINAL DIFF FINAL DIFF MANUAL MANUAL Toxic Granulation 1+ (NORMAL) 1+ (NORMAL) Toxic Vacuolation PRESENT (NONE PRESENT (NONE SEEN) SEEN) Platelet Estimate LOW (NORMAL) LOW (NORMAL) Platelet Morphology Comment NORMAL NORMAL (NORMAL) (NORMAL) Polychromasia 2.4 % (0.0-1.9) 2.9 % (0.0-1.9) Zach Cells 2+ (NORMAL) 1+ (NORMAL) Acanthocytes OCC (NORMAL) OCC (NORMAL) Keratocytes OCC (NORMAL) OCC (NORMAL) Sodium Level 140 MEQ/L (136-145) Potassium Level 4.5 MEQ/L (3.5-5.1) Chloride Level 109 MEQ/L (98-107) Carbon Dioxide Level 13.1 MEQ/L (21.0-32.0) Anion Gap 18 MEQ/L (5-15) Blood Urea Nitrogen 51 MG/DL (7-18) Creatinine 2.82 MG/DL (0.50-1.00) Estimat Glomerular Filtration 17 ML/MIN (>89) Rate Random Glucose 76 MG/DL (74-106) Calcium Level 8.4 MG/DL (8.5-10.1) B-Type Natriuretic Peptide 95 PG/ML (0-100) Lactic Acid Level 6.3 mmol/L (0.4-2.0) Eosinophils % 3 % (0-4) Metamyelocytes 1 % (0-1) Myelocytes 1 % (0-0) Peritoneal Fluid WBC 7032 /MM3 (0-10) Peritoneal Fluid RBC 96169 /MM3 (0-0) Peritoneal Fluid Neutrophils 93 % Peritoneal Fluid Lymphocytes 5 % Peritoneal Fluid Monocytes 2 % Peritoneal Fluid Comment Peritoneal Fluid Total Protein 1.7 GM/DL Peritoneal Fluid Albumin 1.0 G/DL Peritoneal Fluid LDH 1398 U/L Peritoneal Fluid Glucose 25 MG/DL Peritoneal Fluid Amylase 22 U/L Test 11/15/16 11/15/16 11/15/16 11/15/16 01:46 01:50 03:23 04:04 Blood Gas Puncture Site RT BRACHIAL RT BRACHIAL Blood Gas Patient Temperature 98.6 98.6 Blood Gas HCO3 13 mmol/L 16 mmol/L (22-26) (22-26) Blood Gas Base Excess -14.2 mmol/L -9.9 mmol/L (-2-2) (-2-2) Blood Gas Oxygen Saturation 92 % (90-100) 91 % (90-100) Arterial Blood pH 7.16 7.25 (7.380-7.420) (7.380-7.420) Arterial Blood Partial 38 mmHg (38-42) 38 mmHg (38-42) Pressure CO2 Arterial Blood Partial 89 mmHg 78 mmHg Pressure O2 (61-120) (61-120) Arterial Blood Oxygen Content 13.2 Vol % 12.7 Vol % (12.0-20.0) (12.0-20.0) Arterial Blood 1.5 % (0-4) 1.7 % (0-4) Carboxyhemoglobin Arterial Blood Methemoglobin 0.8 % (0-2) 0.6 % (0-2) Blood Gas Hemoglobin 10.1 G/DL 9.8 G/DL (12.0-16.0) (12.0-16.0) Oxygen Delivery Device SIMPLE MASK SIMPLE MASK Blood Gas Liter Flow 6 L/M 7 L/M Urine Color DARK-YELLOW (YELLW/STRAW) Urine Turbidity HAZY (CLEAR) Urine pH 6.0 (5.0-8.5) Urine Specific [place] 1.015 (1.002-1.035) Urine Protein 100 mg/dL (NEG-TRACE) Urine Glucose (UA) TRACE mg/dL (NEG) Urine Ketones NEG mg/dL (NEG) Urine Occult Blood MOD (NEG) Urine Nitrite NEG (NEG) Urine Bilirubin MOD (NEG) Urine Urobilinogen LESS THAN 2.0 MG/DL (LESS THAN 2.0) Urine Leukocyte Esterase MOD (NEG) Urine RBC 79 /hpf (0-3) Urine WBC 15 /hpf (0-5) Urine Bacteria MOD /hpf (NONE) Urine Mucus FEW /lpf (OCC) Urine Yeast (Budding) OCC (NONE) Microscopic Urinalysis Comment CULTURE INDICATED Urine Random Creatinine LESS THAN 13.0 MG/DL Urine Random Sodium 125 MEQ/L White Blood Count 31.3 TH/MM3 (4.0-11.0) Red Blood Count 3.46 MIL/MM3 (4.00-5.30) Hemoglobin 10.8 GM/DL (11.6-15.3) Hematocrit 33.0 % (35.0-46.0) Mean Corpuscular Volume 95.5 FL (80.0-100.0) Mean Corpuscular Hemoglobin 31.1 PG (27.0-34.0) Mean Corpuscular Hemoglobin 32.6 % Concent (32.0-36.0) Red Cell Distribution Width 21.5 % (11.6-17.2) Platelet Count 61 TH/MM3 (150-450) Mean Platelet Volume 9.5 FL (7.0-11.0) Neutrophils (%) (Auto) % (16.0-70.0) Lymphocytes (%) (Auto) % (9.0-44.0) Monocytes (%) (Auto) % (0.0-8.0) Eosinophils (%) (Auto) % (0.0-4.0) Basophils (%) (Auto) % (0.0-2.0) Neutrophils # (Auto) TH/MM3 (1.8-7.7) Lymphocytes # (Auto) TH/MM3 (1.0-4.8) Monocytes # (Auto) TH/MM3 (0-0.9) Eosinophils # (Auto) TH/MM3 (0-0.4) Basophils # (Auto) TH/MM3 (0-0.2) CBC Comment AUTO DIFF Differential Total Cells 100 Counted Neutrophils % (Manual) 81 % (16-70) Band Neutrophils % 14 % (0-6) Lymphocytes % 1 % (9-44) Monocytes % 3 % (0-8) Eosinophils % 1 % (0-4) Neutrophils # (Manual) 29.7 TH/MM3 (1.8-7.7) Nucleated Red Blood Cells 3 /100 WBC (0-0) Differential Comment FINAL DIFF MANUAL Toxic Granulation 1+ (NORMAL) Toxic Vacuolation PRESENT (NONE SEEN) Platelet Estimate LOW (NORMAL) Platelet Morphology Comment NORMAL (NORMAL) Polychromasia 3.7 % (0.0-1.9) Zach Cells 1+ (NORMAL) Acanthocytes OCC (NORMAL) Keratocytes OCC (NORMAL) Prothrombin Time 27.4 SEC (9.8-11.6) Prothromb Time International 2.4 RATIO Ratio Activated Partial 57.5 SEC Thromboplast Time (24.3-30.1) Fibrinogen 220 mg/dL (181-393) Sodium Level 145 MEQ/L (136-145) Potassium Level 4.2 MEQ/L (3.5-5.1) Chloride Level 110 MEQ/L (98-107) Carbon Dioxide Level 17.8 MEQ/L (21.0-32.0) Anion Gap 17 MEQ/L (5-15) Blood Urea Nitrogen 52 MG/DL (7-18) Creatinine 2.80 MG/DL (0.50-1.00) Estimat Glomerular Filtration 18 ML/MIN (>89) Rate Random Glucose 108 MG/DL (74-106) Calcium Level 7.8 MG/DL (8.5-10.1) Magnesium Level 1.9 MG/DL (1.5-2.5) Total Bilirubin 19.4 MG/DL (0.2-1.0) Aspartate Amino Transf 1056 U/L (AST/SGOT) (15-37) Alanine Aminotransferase 267 U/L (10-53) (ALT/SGPT) Alkaline Phosphatase 64 U/L (45-117) Lactate Dehydrogenase 1126 U/L (84-246) Total Protein 4.7 GM/DL (6.4-8.2) Albumin 2.3 GM/DL (3.4-5.0) Lipase 289 U/L (73-393) Test 11/15/16 11/16/16 11/16/16 11/17/16 06:25 04:25 12:19 04:30 Lactic Acid Level 4.7 mmol/L 3.4 mmol/L (0.4-2.0) (0.4-2.0) White Blood Count 27.0 TH/MM3 22.1 TH/MM3 (4.0-11.0) (4.0-11.0) Red Blood Count 2.87 MIL/MM3 2.73 MIL/MM3 (4.00-5.30) (4.00-5.30) Hemoglobin 9.0 GM/DL 8.5 GM/DL (11.6-15.3) (11.6-15.3) Hematocrit 26.1 % 24.9 % (35.0-46.0) (35.0-46.0) Mean Corpuscular Volume 90.9 FL 91.2 FL (80.0-100.0) (80.0-100.0) Mean Corpuscular Hemoglobin 31.2 PG 31.3 PG (27.0-34.0) (27.0-34.0) Mean Corpuscular Hemoglobin 34.3 % 34.3 % Concent (32.0-36.0) (32.0-36.0) Red Cell Distribution Width 20.3 % 20.4 % (11.6-17.2) (11.6-17.2) Platelet Count 44 TH/MM3 32 TH/MM3 (150-450) (150-450) Mean Platelet Volume 10.0 FL 9.7 FL (7.0-11.0) (7.0-11.0) Neutrophils (%) (Auto) 94.8 % 95.1 % (16.0-70.0) (16.0-70.0) Lymphocytes (%) (Auto) 2.3 % 2.6 % (9.0-44.0) (9.0-44.0) Monocytes (%) (Auto) 2.7 % (0.0-8.0) 2.0 % (0.0-8.0) Eosinophils (%) (Auto) 0.1 % (0.0-4.0) 0.1 % (0.0-4.0) Basophils (%) (Auto) 0.1 % (0.0-2.0) 0.2 % (0.0-2.0) Neutrophils # (Auto) 25.6 TH/MM3 21.0 TH/MM3 (1.8-7.7) (1.8-7.7) Lymphocytes # (Auto) 0.6 TH/MM3 0.6 TH/MM3 (1.0-4.8) (1.0-4.8) Monocytes # (Auto) 0.7 TH/MM3 0.4 TH/MM3 (0-0.9) (0-0.9) Eosinophils # (Auto) 0.0 TH/MM3 0.0 TH/MM3 (0-0.4) (0-0.4) Basophils # (Auto) 0.0 TH/MM3 0.0 TH/MM3 (0-0.2) (0-0.2) CBC Comment AUTO DIFF AUTO DIFF Differential Total Cells 100 100 Counted Neutrophils % (Manual) 67 % (16-70) 87 % (16-70) Band Neutrophils % 31 % (0-6) 8 % (0-6) Lymphocytes % 1 % (9-44) 2 % (9-44) Monocytes % 1 % (0-8) 2 % (0-8) Neutrophils # (Manual) 26.5 TH/MM3 21.2 TH/MM3 (1.8-7.7) (1.8-7.7) Differential Comment FINAL DIFF FINAL DIFF MANUAL MANUAL Platelet Estimate LOW (NORMAL) LOW (NORMAL) Platelet Morphology Comment ENLARGED NORMAL (NORMAL) (NORMAL) Helmet Cells OCC (NORMAL) Acanthocytes OCC (NORMAL) Sodium Level 143 MEQ/L 144 MEQ/L (136-145) (136-145) Potassium Level 3.4 MEQ/L 3.4 MEQ/L (3.5-5.1) (3.5-5.1) Chloride Level 101 MEQ/L 99 MEQ/L (98-107) (98-107) Carbon Dioxide Level 27.6 MEQ/L 28.7 MEQ/L (21.0-32.0) (21.0-32.0) Anion Gap 14 MEQ/L (5-15) 16 MEQ/L (5-15) Blood Urea Nitrogen 66 MG/DL (7-18) 66 MG/DL (7-18) Creatinine 3.20 MG/DL 3.30 MG/DL (0.50-1.00) (0.50-1.00) Estimat Glomerular Filtration 15 ML/MIN (>89) 15 ML/MIN (>89) Rate Random Glucose 132 MG/DL 107 MG/DL (74-106) (74-106) Calcium Level 7.2 MG/DL 7.1 MG/DL (8.5-10.1) (8.5-10.1) Protein Corrected Calcium 8.7 MG/DL 8.2 MG/DL (8.5-10.1) (8.5-10.1) Total Bilirubin 17.8 MG/DL 18.8 MG/DL (0.2-1.0) (0.2-1.0) Aspartate Amino Transf 442 U/L (15-37) 340 U/L (15-37) (AST/SGOT) Alanine Aminotransferase 196 U/L (10-53) 180 U/L (10-53) (ALT/SGPT) Alkaline Phosphatase 50 U/L (45-117) 57 U/L (45-117) Total Protein 4.5 GM/DL 5.0 GM/DL (6.4-8.2) (6.4-8.2) Albumin 2.9 GM/DL 3.2 GM/DL (3.4-5.0) (3.4-5.0) Phosphorus Level 6.1 MG/DL (2.5-4.9) Myelocytes 1 % (0-0) Keratocytes OCC (NORMAL) Test 11/17/16 11/17/16 11:45 12:21 Blood Gas Puncture Site RT RADIAL Blood Gas Patient Temperature 98.6 Blood Gas HCO3 31 mmol/L (22-26) Blood Gas Base Excess 7.0 mmol/L (-2-2) Blood Gas Oxygen Saturation 92 % (90-100) Arterial Blood pH 7.44 (7.380-7.420) Arterial Blood Partial 47 mmHg (38-42) Pressure CO2 Arterial Blood Partial 77 mmHg Pressure O2 (61-120) Arterial Blood Oxygen Content 12.3 Vol % (12.0-20.0) Arterial Blood 1.8 % (0-4) Carboxyhemoglobin Arterial Blood Methemoglobin 0.6 % (0-2) Blood Gas Hemoglobin 9.4 G/DL (12.0-16.0) Oxygen Delivery Device CAF Blood Gas Liter Flow 12 L/M Blood Gas Inspired Oxygen 70 % Blood Bank Comment Result Diagram: 11/17/16 0430 11/16/16 1219 Microbiology Microbiology Date/Time Procedure Status Source Growth 11/15/16 01:30 Gram Stain - Final Resulted Fluid Peritoneal Fluid 11/15/16 01:30 Body Fluid Culture - Preliminary Resulted Gram Positive Cocci 11/15/16 01:50 Urine Culture - Final Complete Urine Catheterized Urine Shell Albicans 11/15/16 01:50 Cancelled Urine Clean Catch 11/15/16 02:00 Aerobic Blood Culture - Preliminary Resulted Blood Other NO GROWTH IN 2 DAYS 11/15/16 02:00 Anaerobic Blood Culture - Final Resulted Blood Other QNS - SEE AEROBE REPORT 11/15/16 03:23 Aerobic Blood Culture - Preliminary Resulted Blood Other NO GROWTH IN 2 DAYS 11/15/16 03:23 Anaerobic Blood Culture - Final Resulted Blood Other QNS - SEE AEROBE REPORT Imaging Last Impressions Chest X-Ray 11/15/16 0000 Signed Impressions: Service Date/Time: Tuesday, November 15, 2016 03:40 - CONCLUSION: 1. Persistent hypoinflation with patchy bilateral airspace disease. 2. Elevation of the right hemidiaphragm with some associated right basilar atelectatic changes. 3. No significant change from prior. Aba Sams MD Abdomen CT 11/15/16 0000 Signed Impressions: Service Date/Time: Tuesday, November 15, 2016 12:27 - CONCLUSION: Cirrhotic liver , moderate to large amount of ascites and upper abdominal varices are again noted. Contracted gallbladder with wall thickening and surrounding fluid. No evidence of significant pancreatic inflammation. No consolidating airspace disease right lung base. Edis Plascencia MD Cyst Biopsy Asp-Paracentesis US 11/09/16 0000 Signed Impressions: Service Date/Time: Wednesday, November 09, 2016 09:26 - CONCLUSION: Uncomplicated ultrasound guided paracentesis. Ha Carey MD Lower Extremity Ultrasound 11/08/16 0000 Signed Impressions: Service Date/Time: Tuesday, November 08, 2016 13:59 - CONCLUSION: Negative for deep venous thrombosis.. Ramos Lo MD FACR Abdomen/Pelvis CT 11/08/16 0000 Signed Impressions: Service Date/Time: Tuesday, November 08, 2016 18:35 - CONCLUSION: Increasing ascites and developing anasarca. No other significant change. Edis Plascencia MD Gall Bladder Ultrasound 11/07/16 0000 Signed Impressions: Service Date/Time: Monday, November 07, 2016 09:48 - CONCLUSION: 1. Wall thickening and pericholecystic fluid of the gallbladder and differential includes secondary changes from chronic liver disease and acute cholecystitis. Equivocal sonographic Myles sign as the patient complains of pain during the entire scan. Sludge is in the gallbladder. 2. Ascites present and containing floating debris. The ascites is of heterogeneous attenuation on yesterday's CT suggesting there may be a recently hemorrhagic component. 3. 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 Tony Hdez MD Procedures * 11/15/16 - paracentesis * 11/09/16 paracentesis Patient/Family Conference Present at Family Conference: Met with patient at bedside. Spoke with ex- Isaac via telephone in patient's room and later sister Tayler outside of the room via telephone. . Family Conference Time (mins): 65 Family Conference Location: Bedside, Telephone Issues Discussed: * Palliative care role, purpose, approach * Additional medical, psychosocial, and spiritual history * Patients general health, functional status, and cognitive changes in the months leading up to the current hospitalization * Patient/family understanding of the current medical problems * Patient/family understanding of prognosis * Patients goals of care as best understood from advance directives and/or conversations and/or values * Current medical treatment options and benefits/burdens of those options * Likely scenarios comparing ongoing aggressive care with a transition to comfort measures only * Questions answered to the best of my ability * Palliative care contact information provided Patient seems to have some insight to her liver failure, does not understand the full extent of her disease per processor prognosis. She has a hard time following even simple conversation for any significant period of time. She indicates she would want DNR when asked about code status, but verbalizes she would want her ex-, daughter and sister's input. I called her ex- via telephone while in the patient's room, patient became lethargic and unable to participate in this conversation. Carlitos indicates that he and his daughter want her to be comfortable and dignified. He is certain that she would not want life-prolonging measures including mechanical ventilation or dialysis. 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 Also spoke with patient's sister, Tayler who agreed and feels comfort measures are most appropriate at this time. Spoke with ex-, patient and sister all support NO CODE, no dialysis and transition to comfort measures. Sister will sign hospice consents in AM when she can get to fax machine. Assessment and Plan Disease Oriented Problem List: (1) Thrombosis, portal vein (2) Elevated liver enzymes (3) Acute renal failure (4) Hepatorenal syndrome (5) Jaundice (6) Portal hypertensive gastropathy (7) Varices, gastric (8) Hepatitis C (9) Ascites (10) Anemia (11) Alcohol abuse (12) HTN (hypertension) (13) Abdominal pain (14) Thrombocytopenia (15) Pancreatitis (16) Cirrhosis of liver Symptom Scale: (1) Pain 0-10 Scale: Unable to quantify (2) Weakness 0-10 Scale: Unable to quantify (3) Bleeding 0-10 Scale: Unable to quantify (4) Dyspnea 0-10 Scale: Unable to quantify Pertinent Non-Medical Issues Psychosocial: . Has a 13-year-old daughter, Abril. Supported by her sister, Tayler who lives in [place]. Spiritual: Muslim gregory. [employer] requested. Legal: Ethical issues impacting care: no known concerns at this time. . Important Contacts * Tayler Workman, sister/HCS: [phone] * Chuck Daniels her, brother: [phone] * Isaac, ex-: [phone] . Prognosis Patient is a 56-year-old female with end-stage liver disease, renal failure, peritonitis with worsening clinical condition. Overall prognosis is poor. PPS 10. Hospice appropriate. Code Status: No Code Plan * Patient's capacity appears to wax and wane. She has some insight to her liver failure, does not seem to understand the full extent of her disease process or prognosis. Patient verbalized she would want her sister, Tayler (ph [phone]) to serve as healthcare decision maker. She is too weak to sign written advance directives and becomes too lethargic to arouse during my meeting today.Patient verbalized she would want her sisterTayler to serve as health care surrogate * NO CODE. * Patient seems to have some insight to her liver failure, does not understand the full extent of her disease per processor prognosis. She has a hard time following even simple conversation for any significant period of time. She indicates she would want DNR when asked about code status, but verbalizes she would want her ex-, daughter and sister's input. I called her ex- via telephone while in the patient's room, patient became lethargic and unable to participate in this conversation. Carlitos indicates that he and his daughter want her to be comfortable and dignified. He is certain that she would not want life-prolonging measures including mechanical ventilation or dialysis. 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 Also spoke with patient's sisterTayler who agreed and feels comfort measures are most appropriate at this time. Spoke with ex-, patient and sister all support NO CODE, no dialysis and transition to comfort measures. Sister will sign hospice consents in AM when she can get to fax machine. * Hospice consulted, with plan for admission 11/18/16. Sister Tayler (in [place]) will be at work on 11/18/16, hospice consents can be faxed to [phone] (this is a fax machine at her desk). * SYMPTOMS: pain: abdominal and back pain reported, unable to quantify. Altered mental status: secondary to the patter renal failure. Dyspnea: on oxygen via mask. Orders written for PRN Dilaudid and lorazepam for pain, tachypnea or shortness of breath. * Discussed with Dr. Hernandez, Dr. Orr, Dr. Larsen and nurse. * [employer] requested, sister spoke with nurse. * Palliative care number provided. * Palliative care will continue to follow throughout hospital course to assist with symptom management and clarification of treatment goals as needed. Thank you for the opportunity to participate in the care of Ms. Trujillo. Attestation To help prompt me to consider important information that might be impacting today's encounter and assessment, information from prior notes written by myself or my colleagues may have been "brought forward" into today's note. My signature on this note, however, is an attestation that I personally performed the exam, history, and/or decision-making noted today, and, unless otherwise indicated, the interactions with patient, family, and staff as well as the review of records all occurred today. I also attest that the listed assessment and stated plan reflect my best clinical judgment today based on the combination of historical information, prior notes, and today's exam/ interactions. When time spent is documented, it refers only to time spent today by the signer, or if indicated, combined time spent today by collaborating physician/nurse practitioner. . JAMES FUNEZ Nov 17, 2016 14:13
--- NOTE | 2016-11-17 15:13 | HHI.CCPN ---
Subjective Remarks/Hospital Course Patient is a 56-year-old female with past medical history significant for liver cirrhosis, hepatitis C, alcohol dependence, hypertension, history of GI bleed, tobacco abuse, anxiety and depression who was admitted to the hospitalist service on 11/06/16 with severe epigastric abdominal pain x 3 days duration, associated with nausea and vomiting. No diarrhea, no blood in stools. Abdominal/Pelvis CT showed Cirrhotic liver with moderate abdominal ascites, dilated gallbladder containing intraluminal density and gallstones, wall thickening within sigmoid colon with diverticulosis. Lipase initially 936 on admission, and had been gradually trending down. Ultrasound showed liver cirrhosis, chronic appearing portal vein thrombosis, gallbladder wall thickening and pericholecystic fluid with sludge. Clinical findings are concerning for acute cholecystitis. Gastroenterology and general surgery had been consulted. Patient had been receiving vancomycin and Zosyn. Today Halicat was called for hypotension, systolic blood pressures in the low 80s. Lactic acid was 4.6. Patient was started on IV fluid boluses a total of 3L and was moved emergently to the ICU. On my exam patient is lethargic remains borderline hypotensive and is receiving the third liter of IV fluid. Her ABG shows metabolic acidosis. 2 Amps of bicarbonate were given. Her clinical exam shows significant abdominal tenderness diffusely. Her presentation is concerning for mesenteric ischemia also. A stat CT abdomen pelvis with IV contrast and oral contrast had been ordered, D/W general surgery Dr. Gutierrez 11/09 Patient is awake and alert lying in bed in [facility]. s/p CT guided paracentesis today with removal 1L s/p transfusion 2u PRBC last night Hgb 8.9 this morning from 6.0 CCM Re consult Note: 11/15/16: Critical care medicine was reconsulted today for severe hypotension and worsening sepsis with septic shock. Apparently patient had underwent CT-guided paracentesis on 11/09/16 and fluid studies had shown bacterial peritonitis (EBC 24K, RBC 94K, Fluid culture ESBL Klebsiella and VRE). Infectious disease also following and patient had been getting daptomycin and Zosyn. Patient was not able to be profoundly hypotensive today recordable blood pressure 57/40 yesterday evening. Patient was given 2 L fluid boluses and due to inadequate response was transferred to the ICU. Her white count was 9.7 on 11/11, but yesterday evening it had bumped to 37.4 with left shift. Also stat lactic acid came back at 6.3. Patient is also developing acute renal failure with BUN 51 and creatinine 2.82. I have discontinued Zosyn and place the patient on meropenem 2 g IV every 8 hours pharmacy to dose adjust for renal failure, will continue Cubicin. Once the patient is stabilized patient will be sent for a CT abdomen pelvis. I evaluated the patient in ICU. She appears critically ill in severe distress. Bedside US showed large ascites. Paracentesis done which showed, thick dark brown fluid which is being send for further studies-Fluid looks infected. I believe her clinical deterioration is secondary to worsening spontaneous bacterial peritonitis. ABG showing severe combined metabolic and respiratory acidosis 11/16: Awake and alert. Appears slightly dyspneic. Knows she is at [facility]. Negligible urine output. Remains on bicarbonate drip which was decreased to 50 cc/h he did ordered Bumex to attempt to keep patient nonoliguric. Subjective 11/17: Awake and alert on air slice mask and 70%. Noted that plan is for hospice in a.m. DNR status identified. Objective Vital Signs Date Time Temp Pulse Resp B/P Pulse Ox O2 Delivery O2 Flow Rate FiO2 11/17/16 10:17 95 Aerosol Mask 70 11/17/16 10:00 96 11/17/16 08:00 98.0 28 153/78 11/17/16 07:00 7.00 Intake and Output 11/16/16 11/16/16 11/17/16 08:00 16:00 00:00 Intake Total 1125 ml 943 ml 830 ml Output Total 125 ml 300 ml 400 ml Balance 1000 ml 643 ml 430 ml Result Diagram: 11/17/16 0430 11/16/16 1219 Other Results Microbiology Date/Time Procedure Status Source Growth 11/15/16 03:23 Aerobic Blood Culture - Preliminary Resulted Blood Other NO GROWTH IN 2 DAYS 11/15/16 03:23 Anaerobic Blood Culture - Final Resulted Blood Other QNS - SEE AEROBE REPORT 11/15/16 01:50 Urine Culture - Final Complete Urine Catheterized Urine Shell Albicans 11/15/16 01:50 Cancelled Urine Clean Catch 11/15/16 01:30 Gram Stain - Final Resulted Fluid Peritoneal Fluid 11/15/16 01:30 Body Fluid Culture - Preliminary Resulted Gram Positive Cocci Imaging Last Impressions Chest X-Ray 11/15/16 Signed Impressions: Service Date/Time: Tuesday, November 15, 2016 03:40 - CONCLUSION: 1. Persistent hypoinflation with patchy bilateral airspace disease. 2. Elevation of the right hemidiaphragm with some associated right basilar atelectatic changes. 3. No significant change from prior. Aba Sams MD Abdomen CT 11/15/16 Signed Impressions: Service Date/Time: Tuesday, November 15, 2016 12:27 - CONCLUSION: Cirrhotic liver , moderate to large amount of ascites and upper abdominal varices are again noted. Contracted gallbladder with wall thickening and surrounding fluid. No evidence of significant pancreatic inflammation. No consolidating airspace disease right lung base. Edis Plascencia MD Cyst Biopsy Asp-Paracentesis US 11/09/16 Signed Impressions: Service Date/Time: Wednesday, November 09, 2016 09:26 - CONCLUSION: Uncomplicated ultrasound guided paracentesis. Ha Carey MD Lower Extremity Ultrasound 11/08/16 Signed Impressions: Service Date/Time: Tuesday, November 08, 2016 13:59 - CONCLUSION: Negative for deep venous thrombosis.. Ramos Lo MD FACR Abdomen/Pelvis CT 11/08/16 0000 Signed Impressions: Service Date/Time: Tuesday, November 08, 2016 18:35 - CONCLUSION: Increasing ascites and developing anasarca. No other significant change. Edis Plascencia MD Gall Bladder Ultrasound 11/07/16 0000 Signed Impressions: Service Date/Time: Monday, November 07, 2016 09:48 - CONCLUSION: 1. Wall thickening and pericholecystic fluid of the gallbladder and differential includes secondary changes from chronic liver disease and acute cholecystitis. Equivocal sonographic Myles sign as the patient complains of pain during the entire scan. Sludge is in the gallbladder. 2. Ascites present and containing floating debris. The ascites is of heterogeneous attenuation on yesterday's CT suggesting there may be a recently hemorrhagic component. 3. 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 Tony Hdez MD Objective Remarks GENERAL: 56-year-old female, jaundice currently on air slice mask SKIN: Warm and dry. Jaundiced HEAD: Atraumatic. Normocephalic. EYES: Pupils equal and round about 3 Bell's bilaterally and reactive. Positive scleral icterus. ENT: Mucous membranes dry, airway patent NECK: Trachea midline. No JVD. CARDIOVASCULAR: Regular rate and rhythm. No murmur appreciated. RESPIRATORY: Breath sounds equal bilaterally. Scattered rhonchi and crackles, no wheezing GASTROINTESTINAL: Abdomen is distended. Noted pigtail catheter in place with dark reddish drainage Vague tenderness. No rebound or guarding. Paracentesis- thick dark brown fluid which appears infected-3L removed on 11/15. MUSCULOSKELETAL: Well-healing right ankle surgical scar NEUROLOGICAL: Awake and alert, oriented to person only presently. No focal deficits. Procedures paracentesis A/P Assessment and Plan NEURO: Alcohol dependence -Monitor for alcohol withdrawal, supplement Thiamine, MVI RESP: Respiratory insufficiency Hypoxia Left lower lobe pneumonia COPD -ABG showing severe combined metabolic and respiratory acidosis -Continue with oxygen keep sat >92%. -DuoNeb every 6 hours and when necessary -Restart hydrocortisone 100 mg IV every 8 hours 11/15/16 - Currently on air size mask at 70% since slipped liters. -DNI CV: s/p Septic shock Lactic slowly improving currently 3.7 -Monitor HR and BP keep MAP>65mmHg -Continue Midodrine 10 mg 3 times a day and stress dose Solu-Cortef -Bicarbonate drip decreased to 20 cc per hour GI: Spontaneous bacterial peritonitis Possible acute cholecystitis Acute pancreatitis Liver cirrhosis Ascites, s/p CT-guided paracentesis to 11/09/16 -Bedside US showed large ascites. Paracentesis- thick dark brown fluid which appears infected 3L fluid removed -Status post percutaneous drainage for SBP -Gen. surgery Dr. Gutierrez signed off and GI Dr. Tracey recommended hospice today -IV Protonix 40 twice a day -Discontinued Zosyn and started meropenem renally dosed for ESBL Klebsiella on , continue Cubicin for VRE. Renal/: Acute kidney failure -now worsening -Monitor renal function, I/O's -Patient remains oliguric minimal urine output. Possible ATN versus hepatorenal syndrome per nephrology. -Continue IV fluids as above and IV albumin 25 g every 8 hours - Discussed with Dr. Mckenna, hospice tomorrow will not need dialysis ID: Sepsis lactic acidosis spontaneous bacterial peritonitis Possible cholecystitis Left lower lobe pneumonia -Discontinue Zosyn and start meropenem 11/15/16 for ESBL Klebsiella, continue Cubicin for VRE. ID added Zyvox -Therapeutic paracentesis revealed ascites fluid which appears infected, dark brown further studies pending -Fluid culture on 11/09/16 growing ESBL Klebsiella and VRE -Repeat blood urine and sputum culture, and ascitic fluid culture HEME: Anemia requiring transfusion Thrombocytopenia Coagulopathy -s/p transfusion 2u PRBC 11/08 -Monitor CBC, CMP, Coags ENDO: -Electrolytes replacement as needed PROPH: -Bilateral lower extremity SCDs. Avoid chemical prophylaxis due to anemia, coagulopathy and thrombocytopenia -Protonix 40 mg IV daily every 12 LINES: -Utilize peripheral IVs. Central line if needed for pressor use Critical Care: The total critical care time was 35 minutes. Time to perform other separately billable procedures was not included in the critical care time. Sen Hernandez MD Nov 17, 2016 15:13
[2016-11-17] MEDS ORDERED: LORazepam 2 MG/ML VIAL IV PUSH PRN (17:30)
[2016-11-18] VITALS (10 sets, daily range): BP systolic 123–167; BP diastolic 61–84; PULSE 68–80; RESP 12–26; TEMP 96.4–98.5; O2SAT 92–98
[2016-11-18] MEDS: MEROPENEM INJ 1,000 MG in SODIUM CHLORIDE 0.9% INJ 100 ML IV SCH ×2 (00:52→17:02)
[2016-11-18] MEDS: HYDROmorphone HCL PF 1 MG/ML VIAL IV PUSH PRN ×5 (03:26→19:38)
[2016-11-18] MEDS: RESP: ALBUTEROL 2.5 MG/IPRATROPIUM 0.5 MG NEB (SCH) NEB ×4 (04:01→20:59)
[2016-11-18 04:47] LABS: AUTOMATED NEUTROPHIL # 16.2 TH/MM3 (1.8-7.7); BASOPHIL # 0.1 TH/MM3 (0-0.2); BASOPHIL % 0.3 % (0.0-2.0); HEMATOCRIT 24.3 % (35.0-46.0); LYMPH % 2.4 % (9.0-44.0); LYMPHOCYTE # 0.4 TH/MM3 (1.0-4.8); MEAN CELL VOLUME 92.4 FL (80.0-100.0); MEAN CORPUSCULAR HEMOGLOBIN 31.2 PG (27.0-34.0); MEAN CORPUSCULAR HGB CONC 33.8 % (32.0-36.0); MONO % 0.4 % (0.0-8.0); NEUT % 96.9 % (16.0-70.0); PLATELET COUNT 35 TH/MM3 (150-450); RED BLOOD COUNT 2.63 MIL/MM3 (4.00-5.30); RED CELL DISTRIBUTION WIDTH 20.6 % (11.6-17.2); WHITE BLOOD COUNT 16.8 TH/MM3 (4.0-11.0)
[2016-11-18 04:48] LABS: HEMO FLAGS AUTO DIFF
[2016-11-18 05:21] LABS: BICARBONATE 34.9 MEQ/L (21.0-32.0); CALCIUM-PROTEIN CORRECTED 8.9 MG/DL (8.5-10.1); MAGNESIUM 1.8 MG/DL (1.5-2.5)
[2016-11-18 05:48] LABS: POTASSIUM 2.3 MEQ/L (3.5-5.1)
[2016-11-18] MEDS: PENTOXIFYLLINE 400 MG CONTROLLED RELEASE TAB PO SCH ×3 (05:53→21:00)
[2016-11-18] MEDS: HYDROCORTISONE SOD SUCCINATE 100 MG VIAL IV PUSH SCH ×3 (05:58→21:01)
[2016-11-18] MEDS: BUMETANIDE INJ 1 MG/4 ML VIAL IV PUSH SCH ×3 (05:58→21:01)
[2016-11-18] MEDS: PANTOPRAZOLE SODIUM 40 MG VIAL IV PUSH SCH ×2 (05:58→17:03)
[2016-11-18] MEDS: MIDODRINE 5 MG TAB PO SCH ×3 (06:15→07:40)
[2016-11-18] MEDS: SODIUM CHLORIDE 0.9% FLUSH 5 ML FLUSH FLUSH SCH ×2 (07:39→19:37)
[2016-11-18] MEDS: THIAMINE HCL 100 MG TAB PO SCH (07:39)
[2016-11-18] MEDS: MULTIVITAMIN TAB PO SCH (07:39)
[2016-11-18 08:29] LABS: BANDS 7 % (0-6); METAMYELOCYTES 1 % (0-1); NEUTROPHIL # MANUAL DIFF 16.6 TH/MM3 (1.8-7.7); PLATELET ESTIMATE SMEAR LOW (NORMAL); PLATELET MORPHOLOGY NORMAL (NORMAL); POLYS (SEG NEUTROPHILS) 91 % (16-70); SCAN/DIFF FINAL DIFF MANUAL; WBC DIFF SAMPLE 100
[2016-11-18 08:30] LABS: KERATOCYTES OCC (NORMAL)
--- NOTE | 2016-11-18 09:09 | HHI.CCPN ---
Subjective Remarks/Hospital Course Patient is a 56-year-old female with past medical history significant for liver cirrhosis, hepatitis C, alcohol dependence, hypertension, history of GI bleed, tobacco abuse, anxiety and depression who was admitted to the hospitalist service on 11/06/16 with severe epigastric abdominal pain x 3 days duration, associated with nausea and vomiting. No diarrhea, no blood in stools. Abdominal/Pelvis CT showed Cirrhotic liver with moderate abdominal ascites, dilated gallbladder containing intraluminal density and gallstones, wall thickening within sigmoid colon with diverticulosis. Lipase initially 936 on admission, and had been gradually trending down. Ultrasound showed liver cirrhosis, chronic appearing portal vein thrombosis, gallbladder wall thickening and pericholecystic fluid with sludge. Clinical findings are concerning for acute cholecystitis. Gastroenterology and general surgery had been consulted. Patient had been receiving vancomycin and Zosyn. Today Halicat was called for hypotension, systolic blood pressures in the low 80s. Lactic acid was 4.6. Patient was started on IV fluid boluses a total of 3L and was moved emergently to the ICU. On my exam patient is lethargic remains borderline hypotensive and is receiving the third liter of IV fluid. Her ABG shows metabolic acidosis. 2 Amps of bicarbonate were given. Her clinical exam shows significant abdominal tenderness diffusely. Her presentation is concerning for mesenteric ischemia also. A stat CT abdomen pelvis with IV contrast and oral contrast had been ordered, D/W general surgery Dr. Gutierrez 11/09 Patient is awake and alert lying in bed in [facility]. s/p CT guided paracentesis today with removal 1L s/p transfusion 2u PRBC last night Hgb 8.9 this morning from 6.0 CCM Re consult Note: 11/15/16: Critical care medicine was reconsulted today for severe hypotension and worsening sepsis with septic shock. Apparently patient had underwent CT-guided paracentesis on 11/09/16 and fluid studies had shown bacterial peritonitis (EBC 24K, RBC 94K, Fluid culture ESBL Klebsiella and VRE). Infectious disease also following and patient had been getting daptomycin and Zosyn. Patient was not able to be profoundly hypotensive today recordable blood pressure 57/40 yesterday evening. Patient was given 2 L fluid boluses and due to inadequate response was transferred to the ICU. Her white count was 9.7 on 11/11, but yesterday evening it had bumped to 37.4 with left shift. Also stat lactic acid came back at 6.3. Patient is also developing acute renal failure with BUN 51 and creatinine 2.82. I have discontinued Zosyn and place the patient on meropenem 2 g IV every 8 hours pharmacy to dose adjust for renal failure, will continue Cubicin. Once the patient is stabilized patient will be sent for a CT abdomen pelvis. I evaluated the patient in ICU. She appears critically ill in severe distress. Bedside US showed large ascites. Paracentesis done which showed, thick dark brown fluid which is being send for further studies-Fluid looks infected. I believe her clinical deterioration is secondary to worsening spontaneous bacterial peritonitis. ABG showing severe combined metabolic and respiratory acidosis 11/16: Awake and alert. Appears slightly dyspneic. Knows she is at [facility]. Negligible urine output. Remains on bicarbonate drip which was decreased to 50 cc/h he did ordered Bumex to attempt to keep patient nonoliguric. 11/17: Awake and alert on air slice mask and 70%. Noted that plan is for hospice in a.m. DNR status identified. Subjective 11/18: Awake and alert. On nasal cannula 6 L currently. Patient self removed pigtail catheter yesterday. Abdomen somewhat more distended today. Plan for hospice today Objective Vital Signs Date Time Temp Pulse Resp B/P Pulse Ox O2 Delivery O2 Flow Rate FiO2 11/18/16 08:22 93 Nasal Cannula 6.00 11/18/16 07:00 70 11/18/16 06:00 68 11/18/16 04:00 97.6 23 123/61 Intake and Output 11/17/16 11/17/16 11/18/16 08:00 16:00 00:00 Intake Total 933 ml 633 ml 237 ml Output Total 400 ml 5400 ml 2300 ml Balance 533 ml -4767 ml -2063 ml Result Diagram: 11/18/16 0414 11/18/16 0414 Other Results Microbiology Date/Time Procedure Status Source Growth 11/15/16 03:23 Aerobic Blood Culture - Preliminary Resulted Blood Other NO GROWTH IN 2 DAYS 11/15/16 03:23 Anaerobic Blood Culture - Final Resulted Blood Other QNS - SEE AEROBE REPORT 11/15/16 01:50 Urine Culture - Final Complete Urine Catheterized Urine Shell Albicans 11/15/16 01:50 Cancelled Urine Clean Catch 11/15/16 01:30 Gram Stain - Final Resulted Fluid Peritoneal Fluid 11/15/16 01:30 Body Fluid Culture - Preliminary Resulted Group D Enterococcus Imaging Last Impressions Chest X-Ray 11/15/16 0000 Signed Impressions: Service Date/Time: Tuesday, November 15, 2016 03:40 - CONCLUSION: 1. Persistent hypoinflation with patchy bilateral airspace disease. 2. Elevation of the right hemidiaphragm with some associated right basilar atelectatic changes. 3. No significant change from prior. Aba Sams MD Abdomen CT 11/15/16 0000 Signed Impressions: Service Date/Time: Tuesday, November 15, 2016 12:27 - CONCLUSION: Cirrhotic liver , moderate to large amount of ascites and upper abdominal varices are again noted. Contracted gallbladder with wall thickening and surrounding fluid. No evidence of significant pancreatic inflammation. No consolidating airspace disease right lung base. Edis Plascencia MD Cyst Biopsy Asp-Paracentesis US 11/09/16 0000 Signed Impressions: Service Date/Time: Wednesday, November 09, 2016 09:26 - CONCLUSION: Uncomplicated ultrasound guided paracentesis. aH Carey MD Lower Extremity Ultrasound 11/08/16 0000 Signed Impressions: Service Date/Time: Tuesday, November 08, 2016 13:59 - CONCLUSION: Negative for deep venous thrombosis.. Ramos Lo MD FACR Abdomen/Pelvis CT 11/08/16 0000 Signed Impressions: Service Date/Time: Tuesday, November 08, 2016 18:35 - CONCLUSION: Increasing ascites and developing anasarca. No other significant change. Edis Plascencia MD Gall Bladder Ultrasound 11/07/16 0000 Signed Impressions: Service Date/Time: Monday, November 07, 2016 09:48 - CONCLUSION: 1. Wall thickening and pericholecystic fluid of the gallbladder and differential includes secondary changes from chronic liver disease and acute cholecystitis. Equivocal sonographic Myles sign as the patient complains of pain during the entire scan. Sludge is in the gallbladder. 2. Ascites present and containing floating debris. The ascites is of heterogeneous attenuation on yesterday's CT suggesting there may be a recently hemorrhagic component. 3. 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 Tony Hdez MD Objective Remarks GENERAL: 56-year-old female, jaundiced currently on nasal cannula SKIN: Warm and dry. Jaundiced HEAD: Atraumatic. Normocephalic. EYES: Pupils equal and round about 3 mm bilaterally and reactive. Positive scleral icterus. ENT: Mucous membranes dry, airway patent NECK: Trachea midline. No JVD. CARDIOVASCULAR: Regular rate and rhythm. No murmur appreciated. RESPIRATORY: Breath sounds equal bilaterally. Scattered rhonchi and crackles, no wheezing GASTROINTESTINAL: Abdomen is distended. Noted pigtail catheter in place with dark reddish drainage Vague tenderness. No rebound or guarding. Paracentesis- thick dark brown fluid which appears infected-3L removed on 11/15. MUSCULOSKELETAL: Well-healing right ankle surgical scar NEUROLOGICAL: Awake and alert, oriented to person only presently. No focal deficits. Procedures paracentesis A/P Assessment and Plan NEURO: Alcohol dependence -Monitor for alcohol withdrawal, supplement Thiamine, MVI RESP: Respiratory insufficiency Hypoxia Left lower lobe pneumonia COPD -ABG showing severe combined metabolic and respiratory acidosis -Continue with oxygen keep sat >92%. -DuoNeb every 6 hours and when necessary -Restart hydrocortisone 100 mg IV every 8 hours 11/15/16 - Currently on air size mask at 70% since slipped liters. -DNI CV: s/p Septic shock Lactic slowly improving currently 3.7 -Monitor HR and BP keep MAP>65mmHg -Continue Midodrine 10 mg 3 times a day and stress dose Solu-Cortef -Bicarbonate drip decreased to 20 cc per hour GI: Spontaneous bacterial peritonitis Possible acute cholecystitis Acute pancreatitis Liver cirrhosis Ascites, s/p CT-guided paracentesis to 11/09/16 -Bedside US showed large ascites. Paracentesis- thick dark brown fluid which appears infected 3L fluid removed -Status post percutaneous drainage for SBP -Gen. surgery Dr. Gutierrez signed off and GI Dr. Tracey recommended hospice today -IV Protonix 40 twice a day -Discontinued Zosyn and started meropenem renally dosed for ESBL Klebsiella on , continue Cubicin for VRE. Renal/: Acute kidney failure -now worsening -Monitor renal function, I/O's -Patient remains oliguric minimal urine output. Possible ATN versus hepatorenal syndrome per nephrology. -Continue IV fluids as above and IV albumin 25 g every 8 hours - Discussed with Dr. Mckenna, hospice tomorrow will not need dialysis ID: Sepsis lactic acidosis spontaneous bacterial peritonitis Possible cholecystitis Left lower lobe pneumonia -Discontinue Zosyn and start meropenem 11/15/16 for ESBL Klebsiella, continue Cubicin for VRE. ID added Zyvox -Therapeutic paracentesis revealed ascites fluid which appears infected, dark brown further studies pending -Fluid culture on 11/09/16 growing ESBL Klebsiella and VRE -Repeat blood urine and sputum culture, and ascitic fluid culture HEME: Anemia requiring transfusion Thrombocytopenia Coagulopathy -s/p transfusion 2u PRBC 11/08 -Monitor CBC, CMP, Coags ENDO: -Electrolytes replacement as needed FEN: Hypokalemia Currently nothing by mouth. Supplement if able. PROPH: -Bilateral lower extremity SCDs. Avoid chemical prophylaxis due to anemia, coagulopathy and thrombocytopenia -Protonix 40 mg IV daily every 12 LINES: -Utilize peripheral IVs. Central line if needed for pressor use Critical Care: The total critical care time was 35 minutes. Time to perform other separately billable procedures was not included in the critical care time. Sen Hernandez MD Nov 18, 2016 09:09
[2016-11-18] MEDS ORDERED: MIDO5TAB PO (09:12)
[2016-11-18] MEDS ORDERED: THERTAB15 PO (09:12)
--- NOTE | 2016-11-18 09:13 | HHI.DCPOC ---
Discharge Care Plan Diagnosis: (1) Portal hypertensive gastropathy (2) Hepatitis C (3) Jaundice (4) Hepatorenal syndrome (5) Elevated liver enzymes (6) Thrombosis, portal vein Your Health Problems Are: Chronic Pain Goals to Promote Your Health * To prevent worsening of your condition and complications * To maintain your health at the optimal level Directions to Meet Your Goals Take your medications as prescribed Follow your dietary instruction Follow activity as directed Keep your appointments as scheduled Take your immunizations and boosters as scheduled If your symptoms worsen call your PCP, if no PCP go to Urgent Care Center or Emergency Room Smoking is Dangerous to Your Health. Avoid second hand smoke Call the 24-hour hour crisis hotline for domestic abuse at Sen Hernandez MD Nov 18, 2016 09:13
--- NOTE | 2016-11-18 09:15 | HHI.DS ---
Discharge Summary Admission Date Nov 07, 2016 at 16:51 Admitting Diagnosis Pancreatitis (1) Pancreatitis ICD Code: K85.90 (2) Cirrhosis of liver ICD Code: K74.60 Diagnosis: Principal (3) Thrombocytopenia ICD Code: D69.6 Diagnosis: Principal (4) HTN (hypertension) ICD Code: I10 Diagnosis: Principal (5) Abdominal pain ICD Code: R10.9 Procedures paracentesis Brief History This is a 55-year-old female with a PMH of HTN, Anxiety, Depression, Hepatitis C , Cirrhosis, h/o GI Bleed and Tobacco Abuse who presented to the ER with complaints of severe epigastric pain x3 days w/ associated nausea and non- bloody emesis. Denies fever, chills or diarrhea. On arrival, BP 204/89, HR 61 , O2 sat percent on RA, Afebrile. Platelets 105, previously 75 on 10/13/16. Na 147. Lipase 936. CT Abd/Pelvis w/ cirrhosis, moderate ascites, dilated gallbladder w/ gallstones and wall thickening of sigmoid colon with diverticulosis. S/p Pepcid, Morphine and IVF in ER. CBC/BMP: 11/18/16 0414 11/18/16 0414 Significant Findings Laboratory Tests Test 11/16/16 11/16/16 11/17/16 11/17/16 04:25 12:19 04:30 11:45 White Blood Count 27.0 TH/MM3 22.1 TH/MM3 (4.0-11.0) (4.0-11.0) Red Blood Count 2.87 MIL/MM3 2.73 MIL/MM3 (4.00-5.30) (4.00-5.30) Hemoglobin 9.0 GM/DL 8.5 GM/DL (11.6-15.3) (11.6-15.3) Hematocrit 26.1 % 24.9 % (35.0-46.0) (35.0-46.0) Red Cell Distribution Width 20.3 % 20.4 % (11.6-17.2) (11.6-17.2) Platelet Count 44 TH/MM3 32 TH/MM3 (150-450) (150-450) Neutrophils (%) (Auto) 94.8 % 95.1 % (16.0-70.0) (16.0-70.0) Lymphocytes (%) (Auto) 2.3 % 2.6 % (9.0-44.0) (9.0-44.0) Neutrophils # (Auto) 25.6 TH/MM3 21.0 TH/MM3 (1.8-7.7) (1.8-7.7) Lymphocytes # (Auto) 0.6 TH/MM3 0.6 TH/MM3 (1.0-4.8) (1.0-4.8) Band Neutrophils % 31 % (0-6) 8 % (0-6) Lymphocytes % 1 % (9-44) 2 % (9-44) Neutrophils # (Manual) 26.5 TH/MM3 21.2 TH/MM3 (1.8-7.7) (1.8-7.7) Platelet Estimate LOW (NORMAL) LOW (NORMAL) Platelet Morphology Comment ENLARGED (NORMAL) Acanthocytes OCC (NORMAL) Potassium Level 3.4 MEQ/L 3.4 MEQ/L (3.5-5.1) (3.5-5.1) Blood Urea Nitrogen 66 MG/DL (7-18) 66 MG/DL (7-18) Creatinine 3.20 MG/DL 3.30 MG/DL (0.50-1.00) (0.50-1.00) Estimat Glomerular Filtration 15 ML/MIN (>89) 15 ML/MIN (>89) Rate Random Glucose 132 MG/DL 107 MG/DL (74-106) (74-106) Lactic Acid Level 3.4 mmol/L (0.4-2.0) Calcium Level 7.2 MG/DL 7.1 MG/DL (8.5-10.1) (8.5-10.1) Total Bilirubin 17.8 MG/DL 18.8 MG/DL (0.2-1.0) (0.2-1.0) Aspartate Amino Transf 442 U/L (15-37) 340 U/L (15-37) (AST/SGOT) Alanine Aminotransferase 196 U/L (10-53) 180 U/L (10-53) (ALT/SGPT) Total Protein 4.5 GM/DL 5.0 GM/DL (6.4-8.2) (6.4-8.2) Albumin 2.9 GM/DL 3.2 GM/DL (3.4-5.0) (3.4-5.0) Anion Gap 16 MEQ/L (5-15) Protein Corrected Calcium 8.2 MG/DL (8.5-10.1) Phosphorus Level 6.1 MG/DL (2.5-4.9) Neutrophils % (Manual) 87 % (16-70) Myelocytes 1 % (0-0) Keratocytes OCC (NORMAL) Blood Gas HCO3 31 mmol/L (22-26) Blood Gas Base Excess 7.0 mmol/L (-2-2) Arterial Blood pH 7.44 (7.380-7.420) Arterial Blood Partial 47 mmHg (38-42) Pressure CO2 Blood Gas Hemoglobin 9.4 G/DL (12.0-16.0) Test 11/18/16 04:14 White Blood Count 16.8 TH/MM3 (4.0-11.0) Red Blood Count 2.63 MIL/MM3 (4.00-5.30) Hemoglobin 8.2 GM/DL (11.6-15.3) Hematocrit 24.3 % (35.0-46.0) Red Cell Distribution Width 20.6 % (11.6-17.2) Platelet Count 35 TH/MM3 (150-450) Neutrophils (%) (Auto) 96.9 % (16.0-70.0) Lymphocytes (%) (Auto) 2.4 % (9.0-44.0) Neutrophils # (Auto) 16.2 TH/MM3 (1.8-7.7) Lymphocytes # (Auto) 0.4 TH/MM3 (1.0-4.8) Neutrophils % (Manual) 91 % (16-70) Band Neutrophils % 7 % (0-6) Lymphocytes % 1 % (9-44) Neutrophils # (Manual) 16.6 TH/MM3 (1.8-7.7) Platelet Estimate LOW (NORMAL) Keratocytes OCC (NORMAL) Sodium Level 146 MEQ/L (136-145) Potassium Level 2.3 MEQ/L (3.5-5.1) Chloride Level 97 MEQ/L (98-107) Carbon Dioxide Level 34.9 MEQ/L (21.0-32.0) Blood Urea Nitrogen 82 MG/DL (7-18) Creatinine 3.08 MG/DL (0.50-1.00) Estimat Glomerular Filtration 16 ML/MIN (>89) Rate Calcium Level 7.4 MG/DL (8.5-10.1) Total Bilirubin 12.0 MG/DL (0.2-1.0) Aspartate Amino Transf 89 U/L (15-37) (AST/SGOT) Alanine Aminotransferase 80 U/L (10-53) (ALT/SGPT) Total Protein 4.5 GM/DL (6.4-8.2) Albumin 2.6 GM/DL (3.4-5.0) Imaging Last Impressions Chest X-Ray 11/15/16 0000 Signed Impressions: Service Date/Time: Tuesday, November 15, 2016 03:40 - CONCLUSION: 1. Persistent hypoinflation with patchy bilateral airspace disease. 2. Elevation of the right hemidiaphragm with some associated right basilar atelectatic changes. 3. No significant change from prior. Aba Sams MD Abdomen CT 11/15/16 0000 Signed Impressions: Service Date/Time: Tuesday, November 15, 2016 12:27 - CONCLUSION: Cirrhotic liver , moderate to large amount of ascites and upper abdominal varices are again noted. Contracted gallbladder with wall thickening and surrounding fluid. No evidence of significant pancreatic inflammation. No consolidating airspace disease right lung base. Edis Plascencia MD Cyst Biopsy Asp-Paracentesis US 11/09/16 0000 Signed Impressions: Service Date/Time: Wednesday, November 09, 2016 09:26 - CONCLUSION: Uncomplicated ultrasound guided paracentesis. Ha Carey MD Lower Extremity Ultrasound 11/08/16 0000 Signed Impressions: Service Date/Time: Tuesday, November 08, 2016 13:59 - CONCLUSION: Negative for deep venous thrombosis.. Ramos Lo MD FACR Abdomen/Pelvis CT 11/08/16 0000 Signed Impressions: Service Date/Time: Tuesday, November 08, 2016 18:35 - CONCLUSION: Increasing ascites and developing anasarca. No other significant change. Edis Plascencia MD Gall Bladder Ultrasound 11/07/16 0000 Signed Impressions: Service Date/Time: Monday, November 07, 2016 09:48 - CONCLUSION: 1. Wall thickening and pericholecystic fluid of the gallbladder and differential includes secondary changes from chronic liver disease and acute cholecystitis. Equivocal sonographic Myles sign as the patient complains of pain during the entire scan. Sludge is in the gallbladder. 2. Ascites present and containing floating debris. The ascites is of heterogeneous attenuation on yesterday's CT suggesting there may be a recently hemorrhagic component. 3. 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 Tony Hdez MD PE at Discharge GENERAL: 56-year-old female, jaundiced currently on nasal cannula SKIN: Warm and dry. Jaundiced HEAD: Atraumatic. Normocephalic. EYES: Pupils equal and round about 3 mm bilaterally and reactive. Positive scleral icterus. ENT: Mucous membranes dry, airway patent NECK: Trachea midline. No JVD. CARDIOVASCULAR: Regular rate and rhythm. No murmur appreciated. RESPIRATORY: Breath sounds equal bilaterally. Scattered rhonchi and crackles, no wheezing GASTROINTESTINAL: Abdomen is distended. Noted pigtail catheter in place with dark reddish drainage Vague tenderness. No rebound or guarding. Paracentesis- thick dark brown fluid which appears infected-3L removed on 11/15. MUSCULOSKELETAL: Well-healing right ankle surgical scar NEUROLOGICAL: Awake and alert, oriented to person only presently. No focal deficits. Transfer Summary NEURO: Alcohol dependence -Monitor for alcohol withdrawal, supplement Thiamine, MVI RESP: Respiratory insufficiency Hypoxia Left lower lobe pneumonia COPD -ABG showing severe combined metabolic and respiratory acidosis -Continue with oxygen keep sat >92%. -DuoNeb every 6 hours and when necessary -Restart hydrocortisone 100 mg IV every 8 hours 11/15/16 - Currently on air size mask at 70% since slipped liters. -DNI CV: s/p Septic shock Lactic slowly improving currently 3.7 -Monitor HR and BP keep MAP>65mmHg -Continue Midodrine 10 mg 3 times a day and stress dose Solu-Cortef -Bicarbonate drip decreased to 20 cc per hour GI: Spontaneous bacterial peritonitis Possible acute cholecystitis Acute pancreatitis Liver cirrhosis Ascites, s/p CT-guided paracentesis to 11/09/16 -Bedside US showed large ascites. Paracentesis- thick dark brown fluid which appears infected 3L fluid removed -Status post percutaneous drainage for SBP -Gen. surgery Dr. Gutierrez signed off and GI Dr. Tracey recommended hospice today -IV Protonix 40 twice a day -Discontinued Zosyn and started meropenem renally dosed for ESBL Klebsiella on , continue Cubicin for VRE. Renal/: Acute kidney failure -now worsening -Monitor renal function, I/O's -Patient remains oliguric minimal urine output. Possible ATN versus hepatorenal syndrome per nephrology. -Continue IV fluids as above and IV albumin 25 g every 8 hours - Discussed with Dr. Mckenna, hospice tomorrow will not need dialysis ID: Sepsis lactic acidosis spontaneous bacterial peritonitis Possible cholecystitis Left lower lobe pneumonia -Discontinue Zosyn and start meropenem 11/15/16 for ESBL Klebsiella, continue Cubicin for VRE. ID added Zyvox -Therapeutic paracentesis revealed ascites fluid which appears infected, dark brown further studies pending -Fluid culture on 11/09/16 growing ESBL Klebsiella and VRE -Repeat blood urine and sputum culture, and ascitic fluid culture HEME: Anemia requiring transfusion Thrombocytopenia Coagulopathy -s/p transfusion 2u PRBC 11/08 -Monitor CBC, CMP, Coags ENDO: -Electrolytes replacement as needed FEN: Hypokalemia Currently nothing by mouth. Supplement if able. PROPH: -Bilateral lower extremity SCDs. Avoid chemical prophylaxis due to anemia, coagulopathy and thrombocytopenia -Protonix 40 mg IV daily every 12 LINES: -Utilize peripheral IVs. Central line if needed for pressor use Hospital Course Patient is a 56-year-old female with past medical history significant for liver cirrhosis, hepatitis C, alcohol dependence, hypertension, history of GI bleed, tobacco abuse, anxiety and depression who was admitted to the hospitalist service on 11/06/16 with severe epigastric abdominal pain x 3 days duration, associated with nausea and vomiting. No diarrhea, no blood in stools. Abdominal/Pelvis CT showed Cirrhotic liver with moderate abdominal ascites, dilated gallbladder containing intraluminal density and gallstones, wall thickening within sigmoid colon with diverticulosis. Lipase initially 936 on admission, and had been gradually trending down. Ultrasound showed liver cirrhosis, chronic appearing portal vein thrombosis, gallbladder wall thickening and pericholecystic fluid with sludge. Clinical findings are concerning for acute cholecystitis. Gastroenterology and general surgery had been consulted. Patient had been receiving vancomycin and Zosyn. Today Halicat was called for hypotension, systolic blood pressures in the low 80s. Lactic acid was 4.6. Patient was started on IV fluid boluses a total of 3L and was moved emergently to the ICU. On my exam patient is lethargic remains borderline hypotensive and is receiving the third liter of IV fluid. Her ABG shows metabolic acidosis. 2 Amps of bicarbonate were given. Her clinical exam shows significant abdominal tenderness diffusely. Her presentation is concerning for mesenteric ischemia also. A stat CT abdomen pelvis with IV contrast and oral contrast had been ordered, D/W general surgery Dr. Gutiererz 11/09 Patient is awake and alert lying in bed in NAD. s/p CT guided paracentesis today with removal 1L s/p transfusion 2u PRBC last night Hgb 8.9 this morning from 6.0 CCM Re consult Note: 11/15/16: Critical care medicine was reconsulted today for severe hypotension and worsening sepsis with septic shock. Apparently patient had underwent CT-guided paracentesis on 11/09/16 and fluid studies had shown bacterial peritonitis (EBC 24K, RBC 94K, Fluid culture ESBL Klebsiella and VRE). Infectious disease also following and patient had been getting daptomycin and Zosyn. Patient was not able to be profoundly hypotensive today recordable blood pressure 57/40 yesterday evening. Patient was given 2 L fluid boluses and due to inadequate response was transferred to the ICU. Her white count was 9.7 on 11/11, but yesterday evening it had bumped to 37.4 with left shift. Also stat lactic acid came back at 6.3. Patient is also developing acute renal failure with BUN 51 and creatinine 2.82. I have discontinued Zosyn and place the patient on meropenem 2 g IV every 8 hours pharmacy to dose adjust for renal failure, will continue Cubicin. Once the patient is stabilized patient will be sent for a CT abdomen pelvis. I evaluated the patient in ICU. She appears critically ill in severe distress. Bedside US showed large ascites. Paracentesis done which showed, thick dark brown fluid which is being send for further studies-Fluid looks infected. I believe her clinical deterioration is secondary to worsening spontaneous bacterial peritonitis. ABG showing severe combined metabolic and respiratory acidosis 11/16: Awake and alert. Appears slightly dyspneic. Knows she is at [facility]. Negligible urine output. Remains on bicarbonate drip which was decreased to 50 cc/h he did ordered Bumex to attempt to keep patient nonoliguric. 11/17: Awake and alert on air slice mask and 70%. Noted that plan is for hospice in a.m. DNR status identified. 11/18: Awake and alert. On nasal cannula 6 L currently. Patient self removed pigtail catheter yesterday. Abdomen somewhat more distended today. Plan for hospice today Pt Condition on Discharge: Stable Discharge Disposition: Hospice/Med Facility Discharge Instructions DIET: Follow Instructions for: As Tolerated, No Restrictions Activities you can perform: Continue Bedrest Sen Hernandez MD Nov 18, 2016 09:15
--- NOTE | 2016-11-18 13:39 | HHI.HCPN ---
Call from hospice nurse Tosha to report patient is awake and alert this morning. She remembers a portion of my conversation with her yesterday. I reviewed conversation from yesterday and that nearing the end of our meeting she was unable to be aroused and unable to complete the conversation. Medical team was ready to proceed with intubation and prep for dialysis. Therefore, I spoke wit her sister per her verbalizes wishes. Tayler and her ex-, Carlitos were certain she would want comfort measures. She is more alert, asking appropriate questions. She remembers our talk about DNR and confirms her wishes. I reviewed her medical problems from admission to now. She is still slow to process, but has insight to disease and prognosis. 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 She knows she will from her liver failure, but is having a hard time as she can' t stop thinking about her 13 year old daughter. She is afraid. She is appropriately tearful. She asks me to call her sister, Tayler. Called Tayler via speaker phone in room. She again supports transition to comfort. Patient wants to think about it for a few minutes and asks that hospice nurse come back in 20 minutes and she will have a decision. Patient will need continued psychosocial support and information re: [facility] to family. She may also benefit from spiritual support ( visited yesterday) in care center. Later message from hospice nurse, Tosha to report patient has elected comfort measures with hospice support, plan for transfer to care center when arrangements made. JAMES FUNEZ Nov 18, 2016 13:38
[2016-11-18] MEDS ORDERED: POTASSIUM CHLOR 40 MEQ PREMIX 100 ML IV ONE (19:00)
--- NOTE | 2016-11-18 19:00 | HHI.NPPN ---
Subjective History of Present Illness 56 year old female with Cirrhosis, Hep C, ARF ATN Additional Remarks had Paracentesis repeated Review of Systems General Constitutional: Fatigue Objective Data Data 11/17/16 11/18/16 19:00 07:00 Intake Total 633 ml 523 ml Output Total 5400 ml 3768 ml Balance -4767 ml -3245 ml Intake Oral 0 ml 0 ml IV Total 182 ml 523 ml Other 451 ml Output Urine Total 800 ml 2250 ml Chest Tube Drainage Total 4600 ml 1518 ml # Bowel Movements 0 0 Vital Signs Date Time Temp Pulse Resp B/P Pulse Ox O2 Delivery O2 Flow Rate FiO2 11/18/16 12:45 17 11/18/16 12:00 96.4 71 26 152/67 92 11/18/16 09:32 98 Nasal Cannula 5.00 11/18/16 08:22 93 Nasal Cannula 6.00 11/18/16 08:00 98.5 69 12 124/63 98 11/18/16 07:00 98 Aerosol Mask 7.00 70 11/18/16 06:00 68 11/18/16 04:00 97.6 71 23 123/61 97 11/18/16 04:00 71 11/18/16 02:00 80 11/18/16 00:00 73 11/18/16 00:00 97.8 73 15 144/68 96 11/17/16 22:00 72 11/17/16 20:00 97.5 83 33 142/67 93 11/17/16 20:00 83 11/17/16 19:33 97 Aerosol Mask 70 11/17/16 19:00 98 Aerosol Mask 7.00 70 -: 11/18/16 0414 11/18/16 0414 Physical Exam General Appearance: Well Developed, Pale Neck Neck Exam: Neck Supple Pulmonary Resp Exam: Decreased Bases Cardiology CV Exam: Regular Gastrointestinal/Abdomen GI Exam: Soft, Distended Extremeties Extremities Exam: Moderate Edema Assessment/Plan Problem List: (1) Acute renal failure Plan: She has low urine output that she is getting albumin on midodrine CHANGE Bumex 1 mg q 8 follow UOP it was 3.05 L KCL 40 MEQ iv followed by kcl 20 meq bid she had Paracentesis repeat culture pending (2) Hepatorenal syndrome Plan: Hepatorenal syndrome is due to her liver failure and chronic cirrhosis (3) Cirrhosis of liver Plan: Patient has risk factors alcoholism and hepatitis C (4) Portal hypertensive gastropathy Plan: She will be given midodrine (5) Varices, gastric Plan: GI is following (6) Ascites Plan: Post paracentesis culture gr positive treated foe VRE/klebsiella on Dapto/Meropenem (7) Thrombosis, portal vein Plan: She has coagulopathy Problem Qualifiers (1) Acute renal failure: Qualified Code: N17.9 - Acute renal failure, unspecified acute renal failure type (2) Cirrhosis of liver: (3) Ascites: Qualified Code: K70.31 - Ascites due to alcoholic cirrhosis Jesse Mckenna MD Nov 18, 2016 19:00
[2016-11-18] MEDS: POTASSIUM CHLORIDE 20 MEQ CONTROLLED RELEASE TAB PO SCH (19:37)
[2016-11-19] VITALS: BP 156/87; PULSE 68; RESP 24; TEMP 98; O2SAT 95
[2016-11-19] MEDS: MEROPENEM INJ 1,000 MG in SODIUM CHLORIDE 0.9% INJ 100 ML IV SCH ×2 (01:00→12:52)
[2016-11-19 04:00] VITALS: BP 165/83; PULSE 74; RESP 24; TEMP 98.4; O2SAT 92
[2016-11-19 05:05] LABS: BICARBONATE 35.7 MEQ/L (21.0-32.0)
[2016-11-19] MEDS: HYDROCORTISONE SOD SUCCINATE 100 MG VIAL IV PUSH SCH (05:56)
[2016-11-19] MEDS: MIDODRINE 5 MG TAB PO SCH ×2 (05:56→12:00)
[2016-11-19] MEDS: PENTOXIFYLLINE 400 MG CONTROLLED RELEASE TAB PO SCH (05:56)
[2016-11-19] MEDS: PANTOPRAZOLE SODIUM 40 MG VIAL IV PUSH SCH (05:57)
[2016-11-19] MEDS: BUMETANIDE INJ 1 MG/4 ML VIAL IV PUSH SCH (05:57)
[2016-11-19] MEDS: HYDROmorphone HCL 2 MG TAB PO PRN ×2 (06:39→09:03)
[2016-11-19 07:44] VITALS: O2SAT 92
[2016-11-19 08:00] VITALS: BP 159/89; PULSE 78; PULSE 85; RESP 18; TEMP 98.2; O2SAT 92
[2016-11-19] MEDS: POTASSIUM CHLORIDE 20 MEQ CONTROLLED RELEASE TAB PO SCH (09:02)
[2016-11-19] MEDS: THIAMINE HCL 100 MG TAB PO SCH (09:03)
[2016-11-19] MEDS: SODIUM CHLORIDE 0.9% FLUSH 5 ML FLUSH FLUSH SCH (09:03)
[2016-11-19] MEDS: MULTIVITAMIN TAB PO SCH (09:03)
[2016-11-19] MEDS: HYDROmorphone HCL PF 1 MG/ML VIAL IV PUSH PRN ×2 (09:03→13:28)
[2016-11-19] MEDS: ONDANSETRON HCL 4 MG/2 ML VIAL IVP PRN (09:24)
[2016-11-19 09:33] VITALS: RESP 16
== END 2016-11-19 13:55 | disposition hospice, inpatient (51) | DRG 871 ==
LOC: NEPA 19:14 → NEDA 21:10 → NEPHCDU 23:29 → OBSVTOIN 11-07 16:51 → HIMN 11-08 12:40 → N04B 11-11 18:11 → N04A 11-12 16:45 → N03B 11-15 00:39
PROVIDERS: ADMIT Internal Medicine; ATTEND Internal Medicine
PROC: 30233N1 Transfusion of Nonautologous Red Blood Cells into Peripheral Vein, Percutaneous Approach (ICD-10-PCS; principal; 2016-11-08)
PROC: 0W9G3ZZ Drainage of Peritoneal Cavity, Percutaneous Approach (ICD-10-PCS; 2016-11-09)
PROC: 0W9G30Z Drainage of Peritoneal Cavity with Drainage Device, Percutaneous Approach (ICD-10-PCS; 2016-11-15)
PROC: 0W9G3ZZ Drainage of Peritoneal Cavity, Percutaneous Approach (ICD-10-PCS; 2016-11-17)
DX: A41.81 Sepsis due to Enterococcus (principal); R65.21 Severe sepsis with septic shock; K76.7 Hepatorenal syndrome; N17.0 Acute kidney failure with tubular necrosis; I81 Portal vein thrombosis; K85.00 Idiopathic acute pancreatitis without necrosis or infection; G93.40 Encephalopathy, unspecified; K65.2 Spontaneous bacterial peritonitis; J18.9 Pneumonia, unspecified organism; D68.9 Coagulation defect, unspecified; E87.2 Acidosis; K76.6 Portal hypertension; J44.0 Chronic obstructive pulmonary disease with (acute) lower respiratory infection; K80.00 Calculus of gallbladder with acute cholecystitis without obstruction; I47.1 Supraventricular tachycardia; E87.4 Mixed disorder of acid-base balance; K86.1 Other chronic pancreatitis; B37.49 Other urogenital candidiasis; I10 Essential (primary) hypertension; A41.4 Sepsis due to anaerobes; D63.8 Anemia in other chronic diseases classified elsewhere; K31.89 Other diseases of stomach and duodenum; K70.31 Alcoholic cirrhosis of liver with ascites; E87.6 Hypokalemia; B18.2 Chronic viral hepatitis C; K57.30 Diverticulosis of large intestine without perforation or abscess without bleeding; K40.90 Unilateral inguinal hernia, without obstruction or gangrene, not specified as recurrent; D69.59 Other secondary thrombocytopenia; D50.9 Iron deficiency anemia, unspecified; K72.90 Hepatic failure, unspecified without coma; E11.649 Type 2 diabetes mellitus with hypoglycemia without coma; G89.29 Other chronic pain; M54.9 Dorsalgia, unspecified; R09.02 Hypoxemia; H91.90 Unspecified hearing loss, unspecified ear; F11.10 Opioid abuse, uncomplicated; F10.20 Alcohol dependence, uncomplicated; F32.9 Major depressive disorder, single episode, unspecified; F41.9 Anxiety disorder, unspecified; Z16.21 Resistance to vancomycin; Z51.5 Encounter for palliative care; Z66 Do not resuscitate; Z87.891 Personal history of nicotine dependence; Z86.19 Personal history of other infectious and parasitic diseases
CPT/HCPCS: 32551; 36430; 36600; 49082; 49083; 71010; 71020; 74150; 74177; 76705; 76937; 80048; 80053; 80202; 81001; 82042; 82140; 82150; 82550; 82570; 82805; 82945; 82948; 83605; 83615; 83690; 83735; 83880; 84100; 84132; 84155; 84157; 84300; 84484; 85007; 85018; 85025; 85027; 85379; 85384; 85610; 85730; 86850; 86900; 86901; 86920; 86927; 87040; 87070; 87077; 87086; 87186; 87205; 87641; 89051; 93005; 93970; 94640; 94664; 96374; 96375; C1729; C9113; G0378; J0461; J0610; J0878; J1170; J1720; J1940; J1956; J2020; J2185; J2270; J2405; J2543; J3370; J3411; J3480; J7030; J7040; J7042; J7050; P9016; P9035; P9045; P9047; Q9963; Q9967